=== PATIENT | female | born 1945 | race Caucasian/White ===

== ENCOUNTER 2020-08-30 10:35 | Outpatient (REF) | payer MEDICARE, OTHER, SELFPAY ==
--- NOTE | 2020-08-30 10:45 | XR_ITS ---
EXAMINATION: XR CHEST CLINICAL INFORMATION: Chest pain COMPARISON: None TECHNIQUE: 2 views of the chest were obtained. FINDINGS: The cardiac and mediastinal contours are normal. The lungs are clear. There is blunting at the costophrenic angles questionable for tiny bilateral pleural effusions or pleural thickening. There is no pneumothorax. There is a post vertebroplasty change of the T12 vertebral body. The there are degenerative changes of the spine. XR/XR chest 2V IMPRESSION: Blunting at the bilateral costophrenic angles questionable for tiny bilateral pleural effusions or pleural thickening. Post vertebroplasty change of the lower thoracic spine.
== END 2020-08-30 10:36 | disposition home or self-care (01) ==
LOC: HO.HMGCX 10:35
PROVIDERS: PCP Internal Medicine; Visit Provider Nurse Practitioner Family
DX: R07.89 Other chest pain (principal)
CPT/HCPCS: 71046

== ENCOUNTER 2020-09-10 05:16 | Inpatient (IN) | payer MEDICARE, OTHER, SELFPAY ==
[2020-09-10] VITALS (10 sets, daily range): BP systolic 103–136; BP diastolic 58–78; PULSE 64–92; RESP 16–24; TEMP 36.6–37.1; O2SAT 93–98; BMI 31.1
--- NOTE | 2020-09-10 05:38 | ED.URI ---
HPI - URI/Sore Throat General Chief Complaint: Chest Pain Stated Complaint: COUGHING UP BLOOD Time Seen by Provider: 09/10/20 05:37 Source: patient Mode of arrival: EMS Limitations: no limitations History of Present Illness HPI Narrative: Patient's history of bronchitis been coughing since 08/30/20 had x-ray done which was negative for pneumonia at that time started on doxycycline and prednisone without much help and yesterday started Zithromax for continue cough. Patient denied any fever no phlegm today she was coughing a lot and had some tinge of bright blood in the mucoid phlegm no fever no chills patient was tested COVID negative last week. No under family member with COVID at home Related Data Home Medications Medication Instructions Recorded Confirmed azithromycin 250 mg tablet mg PO 08/30/20 chlorhexidine gluconate 0.12 % ml PO 08/30/20 mouthwash duloxetine 60 mg capsule,delayed 60 mg PO DAILY 08/30/20 release flu vacc 2020-21(65yr ml IM 08/30/20 up)-MF59C(PF) 60 mcg(15 mcgx4)/0.5 mL IM syringe hyoscyamine sulfate 0.375 mg 0.375 mg PO BID 08/30/20 tablet,extended release,12 hr pantoprazole 40 mg tablet,delayed mg PO 08/30/20 release raloxifene 60 mg tablet 60 mg PO DAILY 08/30/20 valsartan 160 mg tablet 160 mg PO DAILY 08/30/20 Previous Rx's Medication Instructions Recorded cyclobenzaprine 5 mg tablet 5 mg PO BEDTIME PRN #7 tab 08/30/20 lidocaine 5 % topical patch 1 patch TOPICAL DAILY #15 ea 08/30/20 doxycycline hyclate 100 mg capsule 100 mg PO BID 10 Days #20 cap 08/31/20 prednisone 20 mg tablet 20 mg PO DAILY 9 Days #18 tab MDD 08/31/20 3 for 3days;2 for 3 days;1 3da Allergies Allergy/AdvReac Type Severity Reaction Status Date / Time nitroglycerin [NITROGLYCERIN] AdvReac Severe HYPOTENSION Unverified 05/26/20 15:12 Review of Systems Review of Systems: Constitutional : No Weight loss, No Fever, No Chills ENT/Mouth : No sore throat, No Rhinorrhea Eyes: No Eye Pain, No Swelling Cardiovascular : No Chest Pain, no palpitations Respiratory : +Cough, occasionalal Sputum, +shortness of breath Gastrointestinal : no Nausea, No Vomiting, No Diarrhea, No abdominal Pain, no black stools Genitourinary : No Dysuria, No Urinary Frequency Musculoskeletal : No joint pain, No Myalgias, No Joint Swelling Skin : No Skin Lesions, No rash Neuro : No Weakness, No Numbness, No Dizziness, No Headache Psych : No Anxiety/Panic, No Depression Heme/Lymph: No Bruising, No Lymphadenopathy Endocrine : No Polyuria, No Polydipsia All other systems reviewed and are negative PMFSH Past Medical History Medical History Pneumonia Social History Social History Advance Directives: No Advance Directives Information Provided: No Physical Exam Vital Signs: Vital Signs: Last Vital Signs Pulse 64 09/10/20 06:00 Resp 18 09/10/20 06:00 BP 136/78 09/10/20 06:00 Pulse Ox 96 09/10/20 06:00 Body Mass Index 31.1 VITAL SIGNS: Reviewed. GENERAL: Well developed, well nourished, in no acute distress. HEAD: Normocephalic/atraumatic, EYES: PERRLA No pallor/icterus noted OROPHARYNX: Oral mucosa moist no oral lesions NECK: Supple, no adenopathy LUNGS: Good air entry bilateral, rales bilateral lower bases more on the right side than left prolonged expiration wheezing +, rhonchi + no dullness CARDIOVASCULAR: Regular rate and rhythm without noted murmurs, no JVD or lower extremity edema. ABDOMEN: Soft, non-tender, non-distended with normal bowel sounds. No rigidity. No guarding. No palpable masses or hernias noted MUSCULOSKELETAL: No tenderness, deformities, EXTREMITIES: No cyanosis slight ankle edema 1+ bilateral SKIN: no rashes, ulcerations, jaundice, pallor, or petechiae NEUROLOGIC: Alert and oriented x 3. Strength and sensation to light touch were grossly intact normal speech Course Course Course Narrative: Patient with cough for 2 weeks COVID negative etiology not clear will do CTA to rule out PE versus pneumonia MDM - URI/Sore Throat MDM Narrative Medical decision making narrative: Patient with cough for last 10 days taken course of doxycycline and prednisone, now started on Zithromax. CT scan looks like atypical infiltrate final report is pending rapid COVID test is negative will do the PCR COVID testing as CT scan is more likely COVID infection. Patient signed out to Dr. Cote for disposition Differential Diagnosis Differential diagnosis: Likely upper respiratory infection and bronchitis Medical Records Attestation: I reviewed the patient's medical records. Lab Data Attestation: I reviewed the patient's lab results. Result diagrams: 09/10/20 05:58 09/10/20 05:59 Labs: Lab Results 09/10/20 09/10/20 09/10/20 Range/Units 05:58 05:58 05:59 WBC 7.8 (4.8-10.8) X10*3/uL RBC 4.52 (4.20-5.50) X10*6/uL Hgb 13.3 (12.0-16.0) g/dl Hct 42.3 (37-47) % MCV 93.6 (80-98) fL MCH 29.4 (27.0-33.0) pg MCHC 31.4 (31.0-35.0) g/dl RDW 13.8 (11.0-16.0) % Plt Count 222 (160-400) X10*3/uL MPV 10.4 (9.4-12.3) fL Immature Gran % (Auto) 0.8 H (0.0-0.4) % Neut % (Auto) 63.2 (45-73) % Lymph % (Auto) 30.9 (20-40) % [place] % (Auto) 4.1 (2-11) % Eos % (Auto) 0.9 (0-4) % Baso % (Auto) 0.1 (0-2) % Lymph # (Auto) 2.4 (1.2-4.9) X10*3/uL [place] # (Auto) 0.3 (0.1-1.2) X10*3/uL Eos # (Auto) 0.1 (0.0-0.4) X10*3/uL Baso # (Auto) 0.0 (0.0-0.2) X10*3/uL Abs Immat Gran (auto) 0.06 H (0.00-0.03) X10*3/uL Absolute Neuts (auto) 4.9 (2.0-8.3) X10*3/uL Absolute Nucleated RBC 0.000 (0.0-0.012) X10*3/uL Nucleated RBC % (auto) 0.0 (0.0-0.2) /100WBC PT 12.1 (10.8-13.0) SEC INR 1.0 (0.9-1.1) APTT 31.4 (24.1-38.0) SEC Sodium (135-145) mmol/L Potassium (3.3-5.1) mmol/l Chloride (96-108) mmol/L Carbon Dioxide (22-29) mmol/L Anion Gap (12-20) BUN (9-16) mg/dL Creatinine (0.5-1.4) mg/dL Estim Creat Clear Calc Estimated GFR Random Glucose (60-115) mg/dL Lactic Acid (0.5-2.0) mmol/L Calcium (8.4-10.2) mg/dL Troponin I High Sens (<3.5-17.0) ng/L COVID-19 ([facility]IN) (Negative) COVID-19 Clin Com 09/10/20 09/10/20 09/10/20 Range/Units 05:59 05:59 06:01 WBC (4.8-10.8) X10*3/uL RBC (4.20-5.50) X10*6/uL Hgb (12.0-16.0) g/dl Hct (37-47) % MCV (80-98) fL MCH (27.0-33.0) pg MCHC (31.0-35.0) g/dl RDW (11.0-16.0) % Plt Count (160-400) X10*3/uL MPV (9.4-12.3) fL Immature Gran % (Auto) (0.0-0.4) % Neut % (Auto) (45-73) % Lymph % (Auto) (20-40) % [place] % (Auto) (2-11) % Eos % (Auto) (0-4) % Baso % (Auto) (0-2) % Lymph # (Auto) (1.2-4.9) X10*3/uL [place] # (Auto) (0.1-1.2) X10*3/uL Eos # (Auto) (0.0-0.4) X10*3/uL Baso # (Auto) (0.0-0.2) X10*3/uL Abs Immat Gran (auto) (0.00-0.03) X10*3/uL Absolute Neuts (auto) (2.0-8.3) X10*3/uL Absolute Nucleated RBC (0.0-0.012) X10*3/uL Nucleated RBC % (auto) (0.0-0.2) /100WBC PT (10.8-13.0) SEC INR (0.9-1.1) APTT (24.1-38.0) SEC Sodium 140 (135-145) mmol/L Potassium 4.3 (3.3-5.1) mmol/l Chloride 102 (96-108) mmol/L Carbon Dioxide 31 H (22-29) mmol/L Anion Gap 11 L (12-20) BUN 20 H (9-16) mg/dL Creatinine 0.79 (0.5-1.4) mg/dL Estim Creat Clear Calc 68.3 Estimated GFR > 60 Random Glucose 107 (60-115) mg/dL Lactic Acid (0.5-2.0) mmol/L Calcium 8.4 (8.4-10.2) mg/dL Troponin I High Sens < 3.5 (<3.5-17.0) ng/L COVID-19 (CAIN) Negative (Negative) COVID-19 Clin Com See Note 09/10/20 Range/Units 06:32 WBC (4.8-10.8) X10*3/uL RBC (4.20-5.50) X10*6/uL Hgb (12.0-16.0) g/dl Hct (37-47) % MCV (80-98) fL MCH (27.0-33.0) pg MCHC (31.0-35.0) g/dl RDW (11.0-16.0) % Plt Count (160-400) X10*3/uL MPV (9.4-12.3) fL Immature Gran % (Auto) (0.0-0.4) % Neut % (Auto) (45-73) % Lymph % (Auto) (20-40) % [place] % (Auto) (2-11) % Eos % (Auto) (0-4) % Baso % (Auto) (0-2) % Lymph # (Auto) (1.2-4.9) X10*3/uL [place] # (Auto) (0.1-1.2) X10*3/uL Eos # (Auto) (0.0-0.4) X10*3/uL Baso # (Auto) (0.0-0.2) X10*3/uL Abs Immat Gran (auto) (0.00-0.03) X10*3/uL Absolute Neuts (auto) (2.0-8.3) X10*3/uL Absolute Nucleated RBC (0.0-0.012) X10*3/uL Nucleated RBC % (auto) (0.0-0.2) /100WBC PT (10.8-13.0) SEC INR (0.9-1.1) APTT (24.1-38.0) SEC Sodium (135-145) mmol/L Potassium (3.3-5.1) mmol/l Chloride (96-108) mmol/L Carbon Dioxide (22-29) mmol/L Anion Gap (12-20) BUN (9-16) mg/dL Creatinine (0.5-1.4) mg/dL Estim Creat Clear Calc Estimated GFR Random Glucose (60-115) mg/dL Lactic Acid 0.7 (0.5-2.0) mmol/L Calcium (8.4-10.2) mg/dL Troponin I High Sens (<3.5-17.0) ng/L COVID-19 (CAIN) (Negative) COVID-19 Clin Com Discharge Plan Discharge Prescriptions: No Action valsartan 160 mg tablet 160 mg PO DAILY RF: 0 pantoprazole 40 mg tablet,delayed release (DR/EC) PO RF: 0 azithromycin 250 mg tablet PO RF: 0 chlorhexidine gluconate 0.12 % mouthwash PO RF: 0 duloxetine 60 mg capsule,delayed release(DR/EC) 60 mg PO DAILY RF: 0 hyoscyamine sulfate 0.375 mg tablet extended release 12 hr 0.375 mg PO BID RF: 0 Fluad Quad 2019-(65y up)(PF) 60 mcg (15 mcg x 4)/0.5 mL syringe IM RF: 0 raloxifene 60 mg tablet 60 mg PO DAILY RF: 0 lidocaine 5 % adhesive patch,medicated 1 patch topical DAILY Qty: 15 RF: 0 cyclobenzaprine 5 mg tablet 5 mg PO BEDTIME PRN (Reason: muscle spasm) Qty: 7 RF: 0 doxycycline hyclate 100 mg capsule 100 mg PO BID 10 Days Qty: 20 RF: 0 prednisone 20 mg tablet 20 mg PO DAILY MDD 3 for 3days;2 for 3 days;1 3da 9 Days Qty: 18 RF: 0
--- NOTE | 2020-09-10 05:45 | ECG_ITS ---
Test Reason : CHEST DISC Blood Pressure : / mmHG Vent. Rate : 070 BPM Atrial Rate : 070 BPM P-R Int : 174 ms QRS Dur : 096 ms QT Int : 412 ms P-R-T Axes : 043 -05 035 degrees QTc Int : 444 ms Normal sinus rhythm Normal ECG When compared with ECG of 15-JUL-2018 09:58, No significant change was found Referred By: Sony Ortiz Electronically Signed By:LORENZO MURGUIA
--- NOTE | 2020-09-10 05:45 | CT_ITS ---
EXAMINATION: CT ANGIOGRAM OF THE CHEST WITH AND WITHOUT CONTRAST (CT PULMONARY ANGIOGRAM FOR PE) CLINICAL INFORMATION: Reason for Exam SOB ? Right lower lobe infiltrate? PE COMPARISON: None TECHNIQUE: Prior to contrast administration, noncontrast localization images were obtained. Subsequently, multidetector volumetric imaging was performed from the thoracic inlet to below the diaphragms following the administration of 80 mL Omnipaque 350 intravenous contrast. No contrast reaction reported Sagittal, coronal, and MIP oblique sagittal reformatted images were obtained on the CT workstation, uploaded to PACS, and reviewed. This CT examination was performed using dose optimization techniques as appropriate, variously including the following: *Automated exposure control *Adjustment of mA and/or kV according to patient size (this includes techniques or standardized protocols for targeted exams where dose is matched to indication/reason for exam; i.e. extremities or head) *Use of iterative reconstruction technique Total exam dose-length product 323 mGy-cm FINDINGS: QUALITY OF STUDY/CONTRAST BOLUS: Satisfactory. PULMONARY ARTERIES: No central or segmental pulmonary emboli. THORACIC AORTA: No aneurysm or dissection. LUNG: Multinodular opacities and associated stranding groundglass present throughout the right lung, most pronounced within the middle lobe and right lower lobe where there is associated interlobular septal thickening towards the right lung base. Left lung is devoid of findings. PLEURA: No pleural effusion or pneumothorax. MEDIASTINUM: Cardiomegaly. No pericardial effusion. No hilar or mediastinal lymphadenopathy. No evidence of septal bowing or right heart strain. No reflux of contrast into the hepatic veins to suggest elevated right heart pressures. Esophagus is dilated and contains debris. CHEST WALL/AXILLA: No axillary or internal mammary lymphadenopathy. OSSEOUS STRUCTURES: No acute or suspicious osseous abnormality. Is post vertebroplasty at T12. UPPER ABDOMEN: Cholelithiasis. CT/CT angio chest PE protocol IMPRESSION: * No evidence of pulmonary embolism. * No aortic aneurysm or dissection. * Nodular opacities and associated groundglass throughout much of the RIGHT lung, more pronounced within the middle lobe and lower lobe. Given the unilaterality, location and the debris-filled esophagus favor aspiration pneumonitis. * Cholelithiasis. VTE: negative
[2020-09-10 06:10] LABS: MANUAL DIFF FLAG NO
[2020-09-10 06:12] LABS: Basophils Percent Auto 0.1 % (0-2); Eosinophils Absolute Auto 0.1 X10*3/uL (0.0-0.4); Eosinophils Percent Auto 0.9 % (0-4); Hematocrit 42.3 % (37-47); Hemoglobin 13.3 g/dl (12.0-16.0); Imm Gran Abs Auto 0.06 X10*3/uL (0.00-0.03); Imm Gran Pct Auto 0.8 % (0.0-0.4); Lymphocytes Absolute Auto 2.4 X10*3/uL (1.2-4.9); Lymphocytes Percent Auto 30.9 % (20-40); Mean Corpuscular HGB Conc 31.4 g/dl (31.0-35.0); Mean Corpuscular Hemoglobin 29.4 pg (27.0-33.0); Mean Corpuscular Volume 93.6 fL (80-98); Mean Platelet Volume 10.4 fL (9.4-12.3); Monocytes Absolute Auto 0.3 X10*3/uL (0.1-1.2); Monocytes Percent Auto 4.1 % (2-11); Neutrophils Absolute Auto 4.9 X10*3/uL (2.0-8.3); Neutrophils Percent Auto 63.2 % (45-73); Platelet Count 222 X10*3/uL (160-400); Red Blood Count 4.52 X10*6/uL (4.20-5.50); Red Cell Distribution Width 13.8 % (11.0-16.0); White Blood Count 7.8 X10*3/uL (4.8-10.8)
[2020-09-10] MEDS: guaiFEN/Codeine SF 200/20/10ML 10 ML LIQUID PO (06:13)
[2020-09-10] MEDS: Albuterol Sulfate 90 MCG 8 GM INHALER 4 PUFF INHALE (06:13)
--- NOTE | 2020-09-10 06:15 | PC.NURSE ---
PT TO ROOM #17 WITH C/O CHEST DISCOMFORT FROM COUGHING ALONG WITH BLOODY SPUTUM. PT CHG INTO GOWN AND AWAITING MD'S EVAL. 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 LABS DRAWN TO LAB.
[2020-09-10 06:32] LABS: Anion Gap 11 (12-20); Blood Urea Nitrogen 20 mg/dL (9-16); Calcium 8.4 mg/dL (8.4-10.2); Carbon Dioxide 31 mmol/L (22-29); Chloride 102 mmol/L (96-108); Creatinine Clr Calc Pharmacy 68.3; Estimated Glomerular Filt Rate > 60; Glucose Random 107 mg/dL (60-115); Potassium 4.3 mmol/l (3.3-5.1); Sodium 140 mmol/L (135-145)
[2020-09-10 06:33] LABS: Prothrombin Time 12.1 SEC (10.8-13.0)
[2020-09-10 06:36] LABS: Partial Thromboplastin Time 31.4 SEC (24.1-38.0)
[2020-09-10 06:37] LABS: COVID-19 Test Negative (Negative)
[2020-09-10 06:38] LABS: Troponin-I High Sensitivity < 3.5 ng/L (<3.5-17.0)
[2020-09-10] MEDS: ondansetron HCL 4 MG/2 ML VIAL IVPUSH (06:56)
--- NOTE | 2020-09-10 07:02 | PC.NURSE ---
PT AWAITING CT.
[2020-09-10 07:08] LABS: Lactic Acid 0.7 mmol/L (0.5-2.0)
[2020-09-10] MEDS: iohexoL 350 MG/ML 100 ML INFUS..BTL IV (07:46)
[2020-09-10 07:47] LABS: B Type Natriuretic Peptide 58 pg/mL (<100)
[2020-09-10 07:53] LABS: D Dimer 231 NG/ML
--- NOTE | 2020-09-10 07:54 | PC.NURSE ---
Dr Ortiz to bedside and discussing negative [facility] Covid test but plan to have Flu/SARS/COVID test d/t CT scan images. Pt swabbed as ordered. Pt noted to have more work of breathing than prior assessment, LS clear anteriorly but hypoxic, room air sat 85% placed on 3lpm via nc with sat up to 93%. Pt reports frontal headache. oral temp 99.8
[2020-09-10 07:55] LABS: Lactate Dehydrogenase 149 U/L (122-220)
[2020-09-10 08:17] LABS: Ferritin 92 ng/mL (10-250)
[2020-09-10 08:37] LABS: Influenza A PCR NEGATIVE (Negative); Influenza B PCR NEGATIVE (Negative); Resp Syncy Virus RNA Qual PCR NEGATIVE (Negative); SARS COV2 PCR INHOUSE NEGATIVE (Negative)
[2020-09-10] MEDS: Piperacillin Sodium/Tazobactam 3.375 GM in 0.9 % Sodium Chloride 50 ML IV ×3 (08:46→23:24)
[2020-09-10] MEDS: Acetaminophen 325 MG TABLET 650 MG PO ×2 (08:46→17:19)
--- NOTE | 2020-09-10 09:39 | ED.CHESTPAIN ---
HPI - Chest Pain General Chief Complaint: Chest Pain Stated Complaint: COUGHING UP BLOOD Time Seen by Provider: 09/10/20 05:37 Source: patient Mode of arrival: EMS Limitations: no limitations Related Data Home Medications Medication Instructions Recorded Confirmed azithromycin 250 mg tablet mg PO 08/30/20 chlorhexidine gluconate 0.12 % ml PO 08/30/20 mouthwash duloxetine 60 mg capsule,delayed 60 mg PO DAILY 08/30/20 release flu vacc 2020-21(65yr ml IM 08/30/20 up)-MF59C(PF) 60 mcg(15 mcgx4)/0.5 mL IM syringe hyoscyamine sulfate 0.375 mg 0.375 mg PO BID 08/30/20 tablet,extended release,12 hr pantoprazole 40 mg tablet,delayed mg PO 08/30/20 release raloxifene 60 mg tablet 60 mg PO DAILY 08/30/20 valsartan 160 mg tablet 160 mg PO DAILY 08/30/20 Previous Rx's Medication Instructions Recorded cyclobenzaprine 5 mg tablet 5 mg PO BEDTIME PRN #7 tab 08/30/20 lidocaine 5 % topical patch 1 patch TOPICAL DAILY #15 ea 08/30/20 doxycycline hyclate 100 mg capsule 100 mg PO BID 10 Days #20 cap 08/31/20 prednisone 20 mg tablet 20 mg PO DAILY 9 Days #18 tab MDD 08/31/20 3 for 3days;2 for 3 days;1 3da Allergies Allergy/AdvReac Type Severity Reaction Status Date / Time nitroglycerin [NITROGLYCERIN] AdvReac Severe HYPOTENSION Verified 09/10/20 08:55 PMFSH Past Medical History Medical History Pneumonia Social History Social History Smoking Status: Never smoker Use of substances other than those prescribed or required for medical reasons: No Advance Directives: No Advance Directives Information Provided: No Physical Exam Vital Signs: Vital Signs: Last Vital Signs Temp 98.8 F 09/10/20 09:31 Pulse 92 09/10/20 09:31 Resp 24 H 09/10/20 09:31 BP 114/68 09/10/20 09:31 Pulse Ox 95 09/10/20 09:31 Body Mass Index 31.1 Course Course Course Narrative: I received sign-out from Dr. Ortiz. Patient had 2 tests for COVID, both of them were negative. The CT scan impression is more comfortable with aspiration pneumonia then with COVID. When patient walks, her oxygen saturation drops to 85% on room air, currently patient is on 2 L, saturating at 95%. I discussed the patient with Dr. Farias, patient will be admitted. At this time, sepsis is not suspected MDM - Chest Pain Lab Data Result diagrams: 09/10/20 05:58 09/10/20 05:59 Labs: Lab Results 09/10/20 09/10/20 09/10/20 Range/Units 05:58 05:58 05:59 WBC 7.8 (4.8-10.8) X10*3/uL RBC 4.52 (4.20-5.50) X10*6/uL Hgb 13.3 (12.0-16.0) g/dl Hct 42.3 (37-47) % MCV 93.6 (80-98) fL MCH 29.4 (27.0-33.0) pg MCHC 31.4 (31.0-35.0) g/dl RDW 13.8 (11.0-16.0) % Plt Count 222 (160-400) X10*3/uL MPV 10.4 (9.4-12.3) fL Immature Gran % (Auto) 0.8 H (0.0-0.4) % Neut % (Auto) 63.2 (45-73) % Lymph % (Auto) 30.9 (20-40) % [place] % (Auto) 4.1 (2-11) % Eos % (Auto) 0.9 (0-4) % Baso % (Auto) 0.1 (0-2) % Lymph # (Auto) 2.4 (1.2-4.9) X10*3/uL [place] # (Auto) 0.3 (0.1-1.2) X10*3/uL Eos # (Auto) 0.1 (0.0-0.4) X10*3/uL Baso # (Auto) 0.0 (0.0-0.2) X10*3/uL Abs Immat Gran (auto) 0.06 H (0.00-0.03) X10*3/uL Absolute Neuts (auto) 4.9 (2.0-8.3) X10*3/uL Absolute Nucleated RBC 0.000 (0.0-0.012) X10*3/uL Nucleated RBC % (auto) 0.0 (0.0-0.2) /100WBC PT 12.1 (10.8-13.0) SEC INR 1.0 (0.9-1.1) APTT 31.4 (24.1-38.0) SEC D-Dimer 231 NG/ML Sodium (135-145) mmol/L Potassium (3.3-5.1) mmol/l Chloride (96-108) mmol/L Carbon Dioxide (22-29) mmol/L Anion Gap (12-20) BUN (9-16) mg/dL Creatinine (0.5-1.4) mg/dL Estim Creat Clear Calc Estimated GFR Random Glucose (60-115) mg/dL Lactic Acid (0.5-2.0) mmol/L Calcium (8.4-10.2) mg/dL Ferritin (10-250) ng/mL Lactate Dehydrogenase (122-220) U/L Troponin I High Sens (<3.5-17.0) ng/L B-Natriuretic Peptide (<100) pg/mL Coronavirus (PCR) (Negative) COVID-19 ([facility]IN) (Negative) COVID-19 Clin Com Influenza Type A (PCR) (Negative) Influenza Type B (PCR) (Negative) RSV RNA Qual (PCR) (Negative) 09/10/20 09/10/20 09/10/20 Range/Units 05:59 05:59 06:01 WBC (4.8-10.8) X10*3/uL RBC (4.20-5.50) X10*6/uL Hgb (12.0-16.0) g/dl Hct (37-47) % MCV (80-98) fL MCH (27.0-33.0) pg MCHC (31.0-35.0) g/dl RDW (11.0-16.0) % Plt Count (160-400) X10*3/uL MPV (9.4-12.3) fL Immature Gran % (Auto) (0.0-0.4) % Neut % (Auto) (45-73) % Lymph % (Auto) (20-40) % [place] % (Auto) (2-11) % Eos % (Auto) (0-4) % Baso % (Auto) (0-2) % Lymph # (Auto) (1.2-4.9) X10*3/uL [place] # (Auto) (0.1-1.2) X10*3/uL Eos # (Auto) (0.0-0.4) X10*3/uL Baso # (Auto) (0.0-0.2) X10*3/uL Abs Immat Gran (auto) (0.00-0.03) X10*3/uL Absolute Neuts (auto) (2.0-8.3) X10*3/uL Absolute Nucleated RBC (0.0-0.012) X10*3/uL Nucleated RBC % (auto) (0.0-0.2) /100WBC PT (10.8-13.0) SEC INR (0.9-1.1) APTT (24.1-38.0) SEC D-Dimer NG/ML Sodium 140 (135-145) mmol/L Potassium 4.3 (3.3-5.1) mmol/l Chloride 102 (96-108) mmol/L Carbon Dioxide 31 H (22-29) mmol/L Anion Gap 11 L (12-20) BUN 20 H (9-16) mg/dL Creatinine 0.79 (0.5-1.4) mg/dL Estim Creat Clear Calc 68.3 Estimated GFR > 60 Random Glucose 107 (60-115) mg/dL Lactic Acid (0.5-2.0) mmol/L Calcium 8.4 (8.4-10.2) mg/dL Ferritin 92 (10-250) ng/mL Lactate Dehydrogenase 149 (122-220) U/L Troponin I High Sens < 3.5 (<3.5-17.0) ng/L B-Natriuretic Peptide 58 (<100) pg/mL Coronavirus (PCR) (Negative) COVID-19 ([facility]IN) Negative (Negative) COVID-19 Clin Com See Note Influenza Type A (PCR) (Negative) Influenza Type B (PCR) (Negative) RSV RNA Qual (PCR) (Negative) 09/10/20 09/10/20 Range/Units 06:32 07:51 WBC (4.8-10.8) X10*3/uL RBC (4.20-5.50) X10*6/uL Hgb (12.0-16.0) g/dl Hct (37-47) % MCV (80-98) fL MCH (27.0-33.0) pg MCHC (31.0-35.0) g/dl RDW (11.0-16.0) % Plt Count (160-400) X10*3/uL MPV (9.4-12.3) fL Immature Gran % (Auto) (0.0-0.4) % Neut % (Auto) (45-73) % Lymph % (Auto) (20-40) % [place] % (Auto) (2-11) % Eos % (Auto) (0-4) % Baso % (Auto) (0-2) % Lymph # (Auto) (1.2-4.9) X10*3/uL [place] # (Auto) (0.1-1.2) X10*3/uL Eos # (Auto) (0.0-0.4) X10*3/uL Baso # (Auto) (0.0-0.2) X10*3/uL Abs Immat Gran (auto) (0.00-0.03) X10*3/uL Absolute Neuts (auto) (2.0-8.3) X10*3/uL Absolute Nucleated RBC (0.0-0.012) X10*3/uL Nucleated RBC % (auto) (0.0-0.2) /100WBC PT (10.8-13.0) SEC INR (0.9-1.1) APTT (24.1-38.0) SEC D-Dimer NG/ML Sodium (135-145) mmol/L Potassium (3.3-5.1) mmol/l Chloride (96-108) mmol/L Carbon Dioxide (22-29) mmol/L Anion Gap (12-20) BUN (9-16) mg/dL Creatinine (0.5-1.4) mg/dL Estim Creat Clear Calc Estimated GFR Random Glucose (60-115) mg/dL Lactic Acid 0.7 (0.5-2.0) mmol/L Calcium (8.4-10.2) mg/dL Ferritin (10-250) ng/mL Lactate Dehydrogenase (122-220) U/L Troponin I High Sens (<3.5-17.0) ng/L B-Natriuretic Peptide (<100) pg/mL Coronavirus (PCR) NEGATIVE (Negative) COVID-19 ([facility]IN) (Negative) COVID-19 Clin Com Influenza Type A (PCR) NEGATIVE (Negative) Influenza Type B (PCR) NEGATIVE (Negative) RSV RNA Qual (PCR) NEGATIVE (Negative) Imaging Data CT PE: Radiologist's impression: FINDINGS: QUALITY OF STUDY/CONTRAST BOLUS: Satisfactory. PULMONARY ARTERIES: No central or segmental pulmonary emboli. THORACIC AORTA: No aneurysm or dissection. LUNG: Multinodular opacities and associated stranding groundglass present throughout the right lung, most pronounced within the middle lobe and right lower lobe where there is associated interlobular septal thickening towards the right lung base. Left lung is devoid of findings. PLEURA: No pleural effusion or pneumothorax. MEDIASTINUM: Cardiomegaly. No pericardial effusion. No hilar or mediastinal lymphadenopathy. No evidence of septal bowing or right heart strain. No reflux of contrast into the hepatic veins to suggest elevated right heart pressures. Esophagus is dilated and contains debris. CHEST WALL/AXILLA: No axillary or internal mammary lymphadenopathy. OSSEOUS STRUCTURES: No acute or suspicious osseous abnormality. Is post vertebroplasty at T12. UPPER ABDOMEN: Cholelithiasis. CT/CT angio chest PE protocol IMPRESSION: * No evidence of pulmonary embolism. * No aortic aneurysm or dissection. * Nodular opacities and associated groundglass throughout much of the RIGHT lung, more pronounced within the middle lobe and lower lobe. Given the unilaterality, location and the debris-filled esophagus favor aspiration pneumonitis. * Cholelithiasis. VTE: negative Discharge Plan Discharge Clinical Impression: Pneumonia Patient Disposition: Admitted As Inpatient Prescriptions: No Action valsartan 160 mg tablet 160 mg PO DAILY RF: 0 pantoprazole 40 mg tablet,delayed release (DR/EC) PO RF: 0 azithromycin 250 mg tablet PO RF: 0 chlorhexidine gluconate 0.12 % mouthwash PO RF: 0 duloxetine 60 mg capsule,delayed release(DR/EC) 60 mg PO DAILY RF: 0 hyoscyamine sulfate 0.375 mg tablet extended release 12 hr 0.375 mg PO BID RF: 0 Fluad Quad 2020-21(65y up)(PF) 60 mcg (15 mcg x 4)/0.5 mL syringe IM RF: 0 raloxifene 60 mg tablet 60 mg PO DAILY RF: 0 lidocaine 5 % adhesive patch,medicated 1 patch topical DAILY Qty: 15 RF: 0 cyclobenzaprine 5 mg tablet 5 mg PO BEDTIME PRN (Reason: muscle spasm) Qty: 7 RF: 0 doxycycline hyclate 100 mg capsule 100 mg PO BID 10 Days Qty: 20 RF: 0 prednisone 20 mg tablet 20 mg PO DAILY MDD 3 for 3days;2 for 3 days;1 3da 9 Days Qty: 18 RF: 0
[2020-09-10] MEDS: 0.9 % Sodium Chloride 1,000 ML 999 ML IVCONT (10:48)
[2020-09-10] MEDS: Prochlorperazine Edisylate 10 MG/2 ML VIAL 5 MG IVPUSH (10:48)
--- NOTE | 2020-09-10 17:10 | PM.IMHP ---
History of Present Illness Date of Service: 09/10/20 <Cecelia Jones NP - Last Filed: 09/10/20 17:20> Chief Complaint: Coughing <Cecelia Jones NP - Last Filed: 09/10/20 17:20> Man presented to the ER with complaints cough burning throat. She reports she woke this morning suddenly with feeling burning in her esophagus and uncontrollable coughing. She reported that she and her usual state of health although last she was diagnosed with pneumonia and was prescribed doxycycline eye and had 1 pill left. She denied any recent fever, chills, nausea, vomiting, diarrhea. Chest CT of was obtained which was negative for pulmonary embolus however did showed nodular opacities with ground-glass too much to the right lung seeming to represent aspiration pneumonitis. She did report a history acid reflux. she did have an episode of hypoxia with oxygen saturation dropping into the high 80s. This did improve with oxygen therapy. Labs all within acceptable limits, vital signs stable, COVID negative. To be admitted for further management treatment aspiration pneumonia. <Cecelia Jones NP - Last Filed: 09/10/20 17:20> Review of Systems Review of Systems: Denies any recent fever chills or decrease in appetite respiratory see HPI cardiovascular is adjustment of any PND or edema gastrointestinal denies any dysphagia abdominal pain nausea vomiting or diarrhea genitourinary denies any dysuria frequency or hematuria musculoskeletal denies any joint pain or swelling neuropsych denies any weakness or seizures all other systems reviewed are negative <Cecelia Jones NP - Last Filed: 09/10/20 17:20> [facility] Medical History: Medical History (Updated 09/11/20 @ 11:45 by Wilbert Disla MD) Ankle fracture, left GERD (gastroesophageal reflux disease) Hypertension Pneumonia <Cecelia Jones NP - Last Filed: 09/10/20 17:20> Pertinent family history: no cardiac disease <Cecelia Jones NP - Last Filed: 09/10/20 17:20> Surgical History: Surgical History (Updated 09/10/20 @ 17:16 by Cecelia Jones NP) Status post ORIF of fracture of ankle <Cecelia Jones NP - Last Filed: 09/10/20 17:20> Social History: Social History Smoking Status: Never smoker Use of substances other than those prescribed or required for medical reasons: No Currently Displaying Signs/Symptoms of Drug Intoxication Withdrawal: No Advance Directives: No Advance Directives Information Provided: No Do you have thoughts of harming others: None Do you have a plan to hurt others: No Plan service: No Current occupational status: retired <Cecelia Jones NP - Last Filed: 09/10/20 17:20> Meds Allergies/Adverse reactions: Allergies Allergy/AdvReac Type Severity Reaction Status Date / Time nitroglycerin [NITROGLYCERIN] AdvReac Severe HYPOTENSION Verified 09/10/20 08:55 <Cecelia Jones NP - Last Filed: 09/10/20 17:20> Home medications: Home Medications Medication Instructions Recorded Confirmed Type duloxetine 60 mg capsule,delayed 60 mg PO DAILY 08/30/20 09/10/20 History release flu vacc (65yr ml IM 08/30/20 History up)-MF59C(PF) 60 mcg(15 mcgx4)/0.5 mL IM syringe pantoprazole 40 mg tablet,delayed 40 mg PO DAILY 08/30/20 09/10/20 History release raloxifene 60 mg tablet 60 mg PO DAILY 08/30/20 09/10/20 History azelastine 1 spray INTRANASAL BID PRN 09/10/20 09/10/20 History pregabalin [Lyrica] 100 mg PO BID 09/10/20 09/10/20 History propranolol 2 tab PO DAILY@0730 09/10/20 09/10/20 History <Cecelia Jones NP - Last Filed: 09/10/20 17:20> Physical Exam Vital Signs and Narrative: Vital Signs: Last Vital Signs Temp 98.1 F 09/10/20 14:04 Pulse 71 09/10/20 17:06 Resp 20 09/10/20 17:06 BP 108/58 L 09/10/20 17:06 Pulse Ox 98 09/10/20 17:06 Body Mass Index 31.1 <Cecelia Jones NP - Last Filed: 09/10/20 17:20> Results Labs CBC and Chem 7: : 09/12/20 06:13 09/12/20 06:13 <Cecelia Jones NP - Last Filed: 09/10/20 17:20> Labs: Laboratory Results - last 24 hr 09/10/20 09/10/20 09/10/20 05:58 05:58 05:59 MCV 93.6 MCH 29.4 MCHC 31.4 RDW 13.8 Plt Count 222 MPV 10.4 Immature Gran % (Auto) 0.8 H Neut % (Auto) 63.2 Lymph % (Auto) 30.9 [place] % (Auto) 4.1 Eos % (Auto) 0.9 Baso % (Auto) 0.1 Lymph # (Auto) 2.4 [place] # (Auto) 0.3 Eos # (Auto) 0.1 Baso # (Auto) 0.0 Abs Immat Gran (auto) 0.06 H Absolute Neuts (auto) 4.9 Absolute Nucleated RBC 0.000 Nucleated RBC % (auto) 0.0 PT 12.1 INR 1.0 APTT 31.4 D-Dimer 231 Anion Gap Estim Creat Clear Calc Estimated GFR Random Glucose Lactic Acid Calcium Ferritin Lactate Dehydrogenase Troponin I High Sens B-Natriuretic Peptide Coronavirus (PCR) COVID-19 (CAIN) COVID-19 Clin Com Influenza Type A (PCR) Influenza Type B (PCR) RSV RNA Qual (PCR) 09/10/20 09/10/20 09/10/20 05:59 05:59 06:01 MCV MCH MCHC RDW Plt Count MPV Immature Gran % (Auto) Neut % (Auto) Lymph % (Auto) [place] % (Auto) Eos % (Auto) Baso % (Auto) Lymph # (Auto) [place] # (Auto) Eos # (Auto) Baso # (Auto) Abs Immat Gran (auto) Absolute Neuts (auto) Absolute Nucleated RBC Nucleated RBC % (auto) PT INR APTT D-Dimer Anion Gap 11 L Estim Creat Clear Calc 68.3 Estimated GFR > 60 Random Glucose 107 Lactic Acid Calcium 8.4 Ferritin 92 Lactate Dehydrogenase 149 Troponin I High Sens < 3.5 B-Natriuretic Peptide 58 Coronavirus (PCR) COVID-19 (CAIN) Negative COVID-19 Clin Com See Note Influenza Type A (PCR) Influenza Type B (PCR) RSV RNA Qual (PCR) 09/10/20 09/10/20 06:32 07:51 MCV MCH MCHC RDW Plt Count MPV Immature Gran % (Auto) Neut % (Auto) Lymph % (Auto) [place] % (Auto) Eos % (Auto) Baso % (Auto) Lymph # (Auto) [place] # (Auto) Eos # (Auto) Baso # (Auto) Abs Immat Gran (auto) Absolute Neuts (auto) Absolute Nucleated RBC Nucleated RBC % (auto) PT INR APTT D-Dimer Anion Gap Estim Creat Clear Calc Estimated GFR Random Glucose Lactic Acid 0.7 Calcium Ferritin Lactate Dehydrogenase Troponin I High Sens B-Natriuretic Peptide Coronavirus (PCR) NEGATIVE COVID-19 (CAIN) COVID-19 Clin Com Influenza Type A (PCR) NEGATIVE Influenza Type B (PCR) NEGATIVE RSV RNA Qual (PCR) NEGATIVE <Cecelia Jones NP - Last Filed: 09/10/20 17:20> Imaging Radiologist's Impressions: Impressions Chest CTA 09/10/20 05:45 IMPRESSION: * No evidence of pulmonary embolism. * No aortic aneurysm or dissection. * Nodular opacities and associated groundglass throughout much of the RIGHT lung, more pronounced within the middle lobe and lower lobe. Given the unilaterality, location and the debris-filled esophagus favor aspiration pneumonitis. * Cholelithiasis. VTE: negative <Cecelia Jones NP - Last Filed: 09/10/20 17:20> Assessment and Plan (1) Pneumonia: Qualifiers: Laterality: right Lung location: unspecified part of lung Pneumonia type: due to unspecified organism Qualified Code(s): J18.9 - Pneumonia, unspecified organism <Cecelia Jones NP - Last Filed: 09/10/20 17:20> Status: Acute <Cecelia Jones NP - Last Filed: 09/10/20 17:20> 74-year-old woman admitted well aspiration pneumonitis. Acute hypoxic respiratory failure secondary to aspiration pneumonitis. Zosyn, continue supplemental oxygen. GERD. PPI. Hypertension. Hold, soft blood pressures. DVT prophylaxis with Lovenox. Discussed with Dr. Disla Full code <Cecelia Jones NP - Last Filed: 09/10/20 17:20>
--- NOTE | 2020-09-10 17:11 | P.EN_ITS ---
Event Note Date of Service: 09/11/20 Event Note: patient seen examined case d/w APC 74-year-old female patient with past medical history of hypertension, GERD presented to [facility] due to symptoms of cough, localized left lower chest pain patient recently finished a course of doxycycline and prednisone for pneumonia but since her symptoms persisted she came to the emergency room, CT chest in the ER showed right middle and lower lobe ground-glass opacities and dilated fluid and debris filled esophagus therefore concern for aspiration pneumonitis patient treated with IV antibiotics, COVID 19 PCR negative ,being admitted for continued monitoring and treatment patient also noted to be hypoxic with ambulation. On examination Awake alert no distress Lungs diminished coarse breath sounds right base Localized tenderness to palpation left lower ribcage Extremities no edema Assessment and plan Acute hypoxic respiratory failure secondary to aspiration pneumonitis Hypertension History of migraine on propranolol Trigeminal neuralgia on Lyrica Agree with IV antibiotic and supportive care.
[2020-09-10] MEDS: 0.9 % Sodium Chloride Flush 3 ML SYRINGE IVFLUSH ×2 (17:24→23:25)
--- NOTE | 2020-09-10 20:00 | PC.NURSE ---
floor called. awaiting return call.
--- NOTE | 2020-09-10 20:15 | PC.NURSE ---
rn to rn with radha (sp?)
[2020-09-10] MEDS: Pregabalin 100 MG CAPSULE PO (20:51)
[2020-09-11] VITALS (7 sets, daily range): BP systolic 100–121; BP diastolic 50–67; PULSE 66–112; RESP 16–20; TEMP 36.6–37; O2SAT 91–96
[2020-09-11] MEDS: traZODone HCL 25 MG HALFTAB PO
[2020-09-11] MEDS: Acetaminophen 325 MG TABLET 650 MG PO ×2 (01:30→20:08)
[2020-09-11] MEDS: Omeprazole 20 MG CAPSULE.DR PO (06:01)
[2020-09-11 07:10] LABS: MANUAL DIFF FLAG NO
[2020-09-11 07:18] LABS: Basophils Percent Auto 0.2 % (0-2); Eosinophils Absolute Auto 0.2 X10*3/uL (0.0-0.4); Eosinophils Percent Auto 0.8 % (0-4); Hematocrit 38.5 % (37-47); Hemoglobin 12.6 g/dl (12.0-16.0); Imm Gran Abs Auto 0.11 X10*3/uL (0.00-0.03); Imm Gran Pct Auto 0.6 % (0.0-0.4); Lymphocytes Absolute Auto 2.7 X10*3/uL (1.2-4.9); Lymphocytes Percent Auto 15.3 % (20-40); Mean Corpuscular HGB Conc 32.7 g/dl (31.0-35.0); Mean Corpuscular Hemoglobin 30.1 pg (27.0-33.0); Mean Corpuscular Volume 92.1 fL (80-98); Mean Platelet Volume 10.1 fL (9.4-12.3); Monocytes Percent Auto 5.4 % (2-11); Neutrophils Absolute Auto 13.7 X10*3/uL (2.0-8.3); Neutrophils Percent Auto 77.7 % (45-73); Platelet Count 191 X10*3/uL (160-400); Red Blood Count 4.18 X10*6/uL (4.20-5.50); Red Cell Distribution Width 13.9 % (11.0-16.0); White Blood Count 17.7 X10*3/uL (4.8-10.8)
[2020-09-11 07:58] LABS: Anion Gap 10 (12-20); Blood Urea Nitrogen 18 mg/dL (9-16); Calcium 7.9 mg/dL (8.4-10.2); Carbon Dioxide 30 mmol/L (22-29); Chloride 108 mmol/L (96-108); Creatinine Clr Calc Pharmacy 64.9; Estimated Glomerular Filt Rate > 60; Glucose Random 113 mg/dL (60-115); Sodium 144 mmol/L (135-145)
[2020-09-11] MEDS: 0.9 % Sodium Chloride Flush 3 ML SYRINGE IVFLUSH (09:15)
[2020-09-11] MEDS: Piperacillin Sodium/Tazobactam 3.375 GM in 0.9 % Sodium Chloride 50 ML IV ×3 (09:15→23:45)
[2020-09-11] MEDS: guaiFENesin DM 200/20/10 ML 10 ML SYRUP PO ×3 (09:15→20:10)
[2020-09-11] MEDS: DULoxetine HCl 60 MG CAPSULE.DR PO (09:16)
[2020-09-11] MEDS: Pregabalin 100 MG CAPSULE PO ×2 (09:16→20:09)
--- NOTE | 2020-09-11 10:17 | MHC.CM.PN ---
nurse attending ambulatory care note electronic medica record reviewed ,s
--- NOTE | 2020-09-11 10:18 | MHC.CM.PN ---
NURSE CORPORATE EXECUTIVE CHEF NOTE ELECTRONIC MEDICAL RECORD REVIEWED ALONG WITH CASE DISCUSSED WITH STAFF NURSE , MET WITH PATIENT , SHE IS ACTIVE, INDEPENDENT IN ALL ADLS AND MOBILITY WITH OUT ANY DEVICE. SHE REPORTED THAT HER LAST NOVEMBER, SHE HAS NO VNA OR DME BUT IF NEEDED SHE REQUESTED TO HAVE THE [facility] ( HER HAD THEM). CONFIRMED THAT SHE HAS A HEALTH CARE PROXY, AND HAS CHOSEN HER TWO SONS HER AGENT , I COULD NOT FIND ONE ON FILE , REQUESTED COPY BE BROUGHT IN OR MAILED TO THE [facility] MEDICAL RECORDS ONCE DISCHARGED, PATIENT HAS HISTORY OF RIGHT BREAST CANCER 1999, SHE REPORTED BEING FRIGHTENED WHEN SHE HAD A COUGHING SPELL AND THEN COUGHED UP BLOOD. DISCHARGE [place] [facility] NO SERVICES VS HOME WITH NEW REF TO THE [facility] FOR [facility] (INIATED 09/11/20) TRANSPORTATION FAMILY PCP DR JEREMY CHAPPELL PATIENT INSTRUCTED TO CALL FOR POST HOSPITAL DISCHAGRE FOLLOW UP MEDICARE IMM GIVEN WITH ATTACHED NAME CARD
--- NOTE | 2020-09-11 11:40 | P.PNIM_ITS ---
Subjective Subjective Date of Service: 09/11/20 Interval History: Patient being followed for aspiration pneumonia and acute hypoxic respiratory failure, patient complaining of persistent dry cough, feels lightheaded, denies fever chills no other acute issues overnight noted to have soft BP this morning with tachycardia. Review of Systems General no headache, positive lightheadedness, no fever chills. CVS localized left lower chest pain,no palpitation. Respiratory dry cough, no respiratory distress. Gastrointestinal no nausea, no vomiting, no abdominal pain Physical Exam Vital Signs: Vital Signs: Last Vital Signs Temp 98.6 F 09/11/20 11:23 Pulse 108 H 09/11/20 11:23 Resp 18 09/11/20 11:23 BP 100/57 L 09/11/20 11:23 Pulse Ox 96 09/11/20 11:23 Body Mass Index 31.1 Const: Other: General patient resting comfortably in no acute distress. Neck is supple no JVD. CVS regular rate rhythm, Respiratory lungs diminished breath sound right base with crepitus, no respiratory distress, no wheeze, no rhonchi. Gastrointestinal abdomen soft, nontender, bowel sounds audible Extremities no clubbing cyanosis or edema. Neuro nonfocal Skin no rash Objective Data Current Medications Generic Name Dose Route Start Last Admin Trade Name Freq PRN Reason Stop Dose Admin Acetaminophen 650 mg 09/10/20 16:58 09/11/20 01:30 Acetaminophen 325 Mg Tablet PO 650 mg Q6H PRN Administration Pain, Mild (Pain Scale 1-3) Azelastine HCl 1 spray 09/10/20 16:58 Azelastine Hcl Nasal 137 Mcg/0.137 Ml Bottle NOSTRIL-B BID PRN Congestion Duloxetine HCl 60 mg 09/11/20 09:00 09/11/20 09:16 Duloxetine Hcl 60 Mg Capsule.Dr PO 60 mg DAILY KELLEE Administration Guaifenesin/Dextromethorphan 10 ml 09/11/20 08:30 09/11/20 09:15 Guaifenesin Dm 200/20/10 Ml 10 Ml Syrup PO 10 ml Q6H KELLEE Administration Piperacillin Sod/Tazobactam 50 mls @ 100 mls/hr 09/10/20 16:58 09/11/20 10:03 Sod 3.375 gm/ Sodium Chloride IV Infused Q8H KELLEE Infusion Sodium Chloride 1,000 mls @ 100 mls/hr 09/11/20 12:00 Ns IVCONT .Q10H [facility] Omeprazole 20 mg 09/11/20 06:30 09/11/20 06:01 Omeprazole 20 Mg Capsule. PO 20 mg DAILY@0630 [facility] Administration Ondansetron HCl 4 mg 09/10/20 16:58 Ondansetron Hcl 4 Mg/2 Ml Vial IVPUSH Q8H PRN Nausea and Vomiting Pharmacy Consult 1 each 09/10/20 10:32 Consult Rx Perform Med Rec MISCELLANE ONCE PRN Consult order Pregabalin 100 mg 09/10/20 21:00 09/11/20 09:16 Pregabalin 100 Mg Capsule PO 100 mg BID KELLEE Administration Propranolol HCl 20 mg 09/11/20 12:30 Propranolol Hcl 20 Mg Tablet PO 09/11/20 12:31 ONCE ONE Protocol Sodium Chloride 3 ml 09/10/20 16:58 09/11/20 09:15 0.9 % Sodium Chloride Flush 3 Ml Syringe IVFLUSH 3 ml QSHIFT [facility] Administration Labs CBC & Chem 7: 09/11/20 06:58 09/11/20 06:58 Microbiology Microbiology Results: Microbiology 09/10/20 06:32 Blood - Venous Blood Culture - Preliminary No growth after 24 hours. 09/10/20 06:32 Blood - Venous Blood Culture - Preliminary No growth after 24 hours. Assessment and Plan (1) Pneumonia: Status: Acute (2) Acute respiratory failure with hypoxia: Status: Acute (3) Acute chest wall pain: Status: Acute Assessment and Plan: 74-year-old woman admitted with aspiration pneumonitis. Acute hypoxic respiratory failure secondary to aspiration pneumonia patient feels better, complaining of dry cough ,no shortness of breath, complaining of persistent pain left lower chest Continue IV Zosyn add cough medication, weaned off O2 currently 96% on room. CT chest showed right-sided pneumonia and dilated esophagus likely due to achalasia Blood culture x2 negative elevated WBC will follow Patient treated with doxycycline and prednisone as outpt and recently placed on azithromycin. History of Achalasia continue Prilosec. Hypertension. soft blood pressure takes propranolol 80 mg at a.m. and 40 mg at p.m. for migraine prophylaxis, and also take valsartan 160 mg daily. Since BP low will give propranolol 20 mg and hold other BP meds, poor by mouth intake in last 24 hours will give IV fluid, BUN mildly elevated, follow BMP History of depression continue Cymbalta History of trigeminal neuralgia on Lyrica DVT prophylaxis with Lovenox.
[2020-09-11] MEDS: 0.9 % Sodium Chloride 1,000 ML 100 ML IVCONT ×2 (12:22→20:58)
[2020-09-11] MEDS: Propranolol HCL 20 MG TABLET PO (12:24)
[2020-09-11] MEDS: Docusate Sodium 100 MG CAPSULE PO (20:12)
--- NOTE | 2020-09-11 21:45 | MHC.PIE ---
p; pt c/o insomnia asking for same med from night before ( trazodone 25 mg po) i; dr mejia notified; new order trazodone 25 mg po bedtime prn e; will cont to monitor
[2020-09-12 03:10] VITALS: BP 101/43; PULSE 63; RESP 19; TEMP 36.4; O2SAT 92
[2020-09-12] MEDS: guaiFENesin DM 200/20/10 ML 10 ML SYRUP PO ×2 (03:11→09:08)
[2020-09-12] MEDS: Omeprazole 20 MG CAPSULE.DR PO (06:27)
[2020-09-12] MEDS: 0.9 % Sodium Chloride 1,000 ML 100 ML IVCONT (06:28)
[2020-09-12 06:39] LABS: MANUAL DIFF FLAG NO
[2020-09-12 06:43] LABS: Basophils Percent Auto 0.2 % (0-2); Eosinophils Absolute Auto 0.2 X10*3/uL (0.0-0.4); Eosinophils Percent Auto 1.6 % (0-4); Hematocrit 36.4 % (37-47); Hemoglobin 11.5 g/dl (12.0-16.0); Imm Gran Abs Auto 0.07 X10*3/uL (0.00-0.03); Imm Gran Pct Auto 0.7 % (0.0-0.4); Lymphocytes Percent Auto 18.8 % (20-40); Mean Corpuscular HGB Conc 31.6 g/dl (31.0-35.0); Mean Corpuscular Hemoglobin 29.5 pg (27.0-33.0); Mean Corpuscular Volume 93.3 fL (80-98); Mean Platelet Volume 10.3 fL (9.4-12.3); Monocytes Absolute Auto 0.6 X10*3/uL (0.1-1.2); Monocytes Percent Auto 5.9 % (2-11); Neutrophils Absolute Auto 7.8 X10*3/uL (2.0-8.3); Neutrophils Percent Auto 72.8 % (45-73); Platelet Count 174 X10*3/uL (160-400); White Blood Count 10.7 X10*3/uL (4.8-10.8)
[2020-09-12 07:10] VITALS: BP 98/54; PULSE 67; RESP 18; TEMP 35.9; O2SAT 92
[2020-09-12 07:10] LABS: Anion Gap 11 (12-20); Blood Urea Nitrogen 13 mg/dL (9-16); Calcium 7.7 mg/dL (8.4-10.2); Carbon Dioxide 27 mmol/L (22-29); Chloride 109 mmol/L (96-108); Creatinine Clr Calc Pharmacy 72.8; Estimated Glomerular Filt Rate > 60; Glucose Random 106 mg/dL (60-115); Potassium 4.3 mmol/l (3.3-5.1); Sodium 143 mmol/L (135-145)
[2020-09-12] MEDS: Acetaminophen 325 MG TABLET 650 MG PO (09:07)
[2020-09-12] MEDS: Pregabalin 100 MG CAPSULE PO (09:08)
[2020-09-12] MEDS: DULoxetine HCl 60 MG CAPSULE.DR PO (09:08)
[2020-09-12] MEDS: Piperacillin Sodium/Tazobactam 3.375 GM in 0.9 % Sodium Chloride 50 ML IV (09:08)
--- NOTE | 2020-09-12 10:32 | W.MHC.F2F ---
Service Date Service Date: 09/12/20 Reasons for Services Homebound: Leaving the home is medically contraindicated at this time without the asist of a device and/or another person due th the listed conditions above and below. Certification: Based on the above findings, I certify that this patient is confined to the home and needs intermittent shelter care, physical therapy and/or speech therapy, or continues to need occupational therapy. The patient is under my care, and I have initiated the establishment of the plan of care. The patient will be followed by a physician who will periodically review the plan of care.
--- NOTE | 2020-09-12 10:42 | PM.DS ---
DS: Providers Provider Date of admission: 09/10/20 12:13 Primary care physician: Unknown Physician DS: Diagnosis Discharge Diagnosis (1) Pneumonia: Status: Acute (2) Acute respiratory failure with hypoxia: Status: Acute (3) Acute chest wall pain: Status: Acute DS: Medications Discharge Medications Home Medications: Home Medications Medication Instructions Recorded Confirmed duloxetine 60 mg capsule,delayed 60 mg PO DAILY 08/30/20 09/10/20 release flu vacc 2020-21(65yr ml IM 08/30/20 up)-MF59C(PF) 60 mcg(15 mcgx4)/0.5 mL IM syringe pantoprazole 40 mg tablet,delayed 40 mg PO DAILY 08/30/20 09/10/20 release raloxifene 60 mg tablet 60 mg PO DAILY 08/30/20 09/10/20 azelastine 1 spray INTRANASAL BID PRN 09/10/20 09/10/20 pregabalin [Lyrica] 100 mg PO BID 09/10/20 09/10/20 propranolol 2 tab PO DAILY@0730 09/10/20 09/10/20 Previous Rx's Medication Instructions Recorded amoxicillin-pot clavulanate 1 tab PO BID #14 tab 09/12/20 [Augmentin] DS: Summary Hospital Course Hospital Course: Patient was admitted for acute hypoxic respiratory failure secondary to aspiration pneumonia. She was given IV Zosyn. Her hypoxia resolved. She was able to ambulate to the bathroom with minimal shortness of breath and no desaturation. She will be discharged home on 7 more days of p.o. Augmentin. Time Spent with Patient Time attestation: Total time spent providing and/or coordinating discharge services: Physical Exam Vital Signs: Vital Signs: Last Vital Signs Temp 96.7 F L 09/12/20 07:10 Pulse 67 09/12/20 07:10 Resp 18 09/12/20 07:10 BP 98/54 L 09/12/20 07:10 Pulse Ox 92 09/12/20 07:10 Body Mass Index 31.1 General: AO X 3, no acute distress Resp: CTA bilateral CVS: S1,S2,RRR GI: soft, non tender, non distended Neuro: motor grossly intact Psych: appropriate affect DS: Data Data Completed and Pending Labs on day of discharge: 09/10/20 05:45 ECG 12 lead EKG Stat EKG Documentation DIRECTED CT angio chest PE protocol Stat 09/10/20 05:47 Albuterol Sulfate [Ventolin] 4 puff INHALE ONCE ONE guaiFEN/Codeine SF 200/20/10ML [Robitussin AC 200/20/10ML] 10 ml PO ONCE ONE 09/10/20 05:58 Complete Blood Count Auto Diff Stat Partial Thromboplastin Time Stat 09/10/20 05:59 B Type Natriuretic Peptide Stat Basic Metabolic Panel Stat D Dimer Stat Ferritin Stat Lactate Dehydrogenase Stat Prothrombin Time INR Stat Troponin-I High Sensitivity Stat 09/10/20 06:01 COVID-19 ID NOW ([employer]) Stat 09/10/20 06:32 Lactic Acid Stat 09/10/20 06:46 ondansetron HCL [Zofran] 4 mg .ROUTE .STK-MED ONE ondansetron HCL [Zofran] 4 mg IVPUSH ONCE ONE 09/10/20 07:30 Add Laboratory Test Stat 09/10/20 07:45 Add Laboratory Test Stat 09/10/20 07:46 iohexoL 350 MG/ML [Omnipaque 350 MG/ML] 100 ml IV ONCE ONE 09/10/20 07:51 SARS-CoV2/FLU/RSV Stat 09/10/20 08:00 levoFLOXacin [Levaquin] 500 mg PO ONCE ONE 09/10/20 08:13 Piperacillin Sodium/Tazobactam [Zosyn] 3.375 gm 0.9 % Sodium Chloride [Ns] 50 ml IV ONCE 09/10/20 08:39 Acetaminophen [Tylenol] 650 mg PO ONCE ONE 09/10/20 08:40 Prochlorperazine Edisylate [Compazine] 5 mg IVPUSH ONCE ONE 09/10/20 08:41 Piperacillin Sodium/Tazobactam [Zosyn] 3.375 gm IV .STK-MED ONE 09/10/20 09:41 0.9 % Sodium Chloride [Ns] 1,000 ml IVCONT 999 mls/hr 09/10/20 11:08 ED Diet NOW 09/10/20 11:56 Transfer Order Routine 09/10/20 17:12 ED Diet NOW 09/10/20 17:13 Piperacillin Sodium/Tazobactam [Zosyn] 3.375 gm IV .STK-MED ONE 09/10/20 21:00 Propranolol HCL [Inderal] 40 mg PO BEDTIME 09/10/20 23:10 Piperacillin Sodium/Tazobactam [Zosyn] 3.375 gm IV .STK-MED ONE 09/10/20 23:38 traZODone HCL [Desyrel] 25 mg PO ONCE ONE 09/11/20 06:58 Basic Metabolic Panel DAILY@0600 Complete Blood Count Auto Diff DAILY@0600 09/11/20 07:30 Propranolol HCL [Inderal] 80 mg PO DAILY@0730 09/11/20 09:00 Valsartan [Diovan] 160 mg PO DAILY raloxifene 60 mg PO DAILY 09/11/20 09:04 Piperacillin Sodium/Tazobactam [Zosyn] 3.375 gm IV .STK-MED ONE 09/11/20 12:30 Propranolol HCL [Inderal] 20 mg PO ONCE ONE 09/11/20 16:21 Piperacillin Sodium/Tazobactam [Zosyn] 3.375 gm IV .STK-MED ONE 09/11/20 23:39 Piperacillin Sodium/Tazobactam [Zosyn] 3.375 gm IV .STK-MED ONE 09/12/20 06:13 Basic Metabolic Panel Routine Complete Blood Count Auto Diff Routine 09/12/20 08:55 Piperacillin Sodium/Tazobactam [Zosyn] 3.375 gm IV .STK-MED ONE Laboratory Last Values WBC 10.7 X10*3/uL (4.8-10.8) 09/12/20 06:13 RBC 3.90 X10*6/uL (4.20-5.50) L 09/12/20 06:13 Hgb 11.5 g/dl (12.0-16.0) L 09/12/20 06:13 Hct 36.4 % (37-47) L 09/12/20 06:13 MCV 93.3 fL (80-98) 09/12/20 06:13 MCH 29.5 pg (27.0-33.0) 09/12/20 06:13 MCHC 31.6 g/dl (31.0-35.0) 09/12/20 06:13 RDW 14.0 % (11.0-16.0) 09/12/20 06:13 Plt Count 174 X10*3/uL (160-400) 09/12/20 06:13 MPV 10.3 fL (9.4-12.3) 09/12/20 06:13 Immature Gran % (Auto) 0.7 % (0.0-0.4) H 09/12/20 06:13 Neut % (Auto) 72.8 % (45-73) 09/12/20 06:13 Lymph % (Auto) 18.8 % (20-40) L 09/12/20 06:13 [place] % (Auto) 5.9 % (2-11) 09/12/20 06:13 Eos % (Auto) 1.6 % (0-4) 09/12/20 06:13 Baso % (Auto) 0.2 % (0-2) 09/12/20 06:13 Lymph # (Auto) 2.0 X10*3/uL (1.2-4.9) 09/12/20 06:13 [place] # (Auto) 0.6 X10*3/uL (0.1-1.2) 09/12/20 06:13 Eos # (Auto) 0.2 X10*3/uL (0.0-0.4) 09/12/20 06:13 Baso # (Auto) 0.0 X10*3/uL (0.0-0.2) 09/12/20 06:13 Abs Immat Gran (auto) 0.07 X10*3/uL (0.00-0.03) H 09/12/20 06:13 Absolute Neuts (auto) 7.8 X10*3/uL (2.0-8.3) 09/12/20 06:13 Absolute Nucleated RBC 0.000 X10*3/uL (0.0-0.012) 09/12/20 06:13 Nucleated RBC % (auto) 0.0 /100WBC (0.0-0.2) 09/12/20 06:13 PT 12.1 SEC (10.8-13.0) 09/10/20 05:59 INR 1.0 (0.9-1.1) 09/10/20 05:59 APTT 31.4 SEC (24.1-38.0) 09/10/20 05:58 D-Dimer 231 NG/ML 09/10/20 05:59 Sodium 143 mmol/L (135-145) 09/12/20 06:13 Potassium 4.3 mmol/l (3.3-5.1) 09/12/20 06:13 Chloride 109 mmol/L (96-108) H 09/12/20 06:13 Carbon Dioxide 27 mmol/L (22-29) 09/12/20 06:13 Anion Gap 11 (12-20) L 09/12/20 06:13 BUN 13 mg/dL (9-16) 09/12/20 06:13 Creatinine 0.74 mg/dL (0.5-1.4) 09/12/20 06:13 Estim Creat Clear Calc 72.8 09/12/20 06:13 Estimated GFR > 60 09/12/20 06:13 Random Glucose 106 mg/dL (60-115) 09/12/20 06:13 Lactic Acid 0.7 mmol/L (0.5-2.0) 09/10/20 06:32 Calcium 7.7 mg/dL (8.4-10.2) L 09/12/20 06:13 Ferritin 92 ng/mL (10-250) 09/10/20 05:59 Lactate Dehydrogenase 149 U/L (122-220) 09/10/20 05:59 Troponin I High Sens < 3.5 ng/L (<3.5-17.0) 09/10/20 05:59 B-Natriuretic Peptide 58 pg/mL (<100) 09/10/20 05:59 Coronavirus (PCR) NEGATIVE (Negative) 09/10/20 07:51 COVID-19 (CAIN) Negative (Negative) 09/10/20 06:01 COVID-19 Clin Com See Note 09/10/20 06:01 Influenza Type A (PCR) NEGATIVE (Negative) 09/10/20 07:51 Influenza Type B (PCR) NEGATIVE (Negative) 09/10/20 07:51 RSV RNA Qual (PCR) NEGATIVE (Negative) 09/10/20 07:51 Preliminary micro results at discharge 09/10/20 06:32 Blood Culture - Preliminary Blood - Venous No growth after 48 hours. 09/10/20 06:32 Blood Culture - Preliminary Blood - Venous No growth after 48 hours. Discharge Plan Discharge Patient Disposition: Home Health Service Referrals: Physician,Unknown [Primary Care Provider] - Discharge Medications: New amoxicillin-pot clavulanate [Augmentin] 875-125 mg tablet 1 tab PO BID Qty: 14 RF: 0 Continued pregabalin [Lyrica] 100 mg Capsule 100 mg PO BID RF: 0 propranolol 40 mg tablet 2 tab PO DAILY@0730 RF: 0 azelastine 137 mcg (0.1 %) aerosol,spray 1 spray intranasal BID PRN (Reason: Congestion) RF: 0 pantoprazole 40 mg tablet,delayed release (DR/EC) 40 mg PO DAILY RF: 0 duloxetine 60 mg capsule,delayed release(DR/EC) 60 mg PO DAILY RF: 0 flu vac 2020 [id number](PF) 60 mcg (15 mcg x 4)/0.5 mL syringe IM RF: 0 raloxifene 60 mg tablet 60 mg PO DAILY RF: 0 Discontinued propranolol 40 mg tablet 40 mg PO BEDTIME RF: 0 valsartan 160 mg tablet 160 mg PO DAILY RF: 0 Discharge Orders: Discharge Order (Routine); Ordered 09/12/20 Ordered By: Keo Rodney Diet: advance to usual diet Activity on Discharge: As tolerated Visit Report Forms: Patient Portal Discharge page Care Plan Goals: recovery Health Concerns: aspiration pneumonia Plan of Treatment: augmentin one week, monitor for worsening sypmotoms
[2020-09-12 11:20] VITALS: BP 104/55; PULSE 71; RESP 18; TEMP 36.3; O2SAT 95
--- NOTE | 2020-09-12 12:22 | MHC.CM.PN ---
PT DISCHARGING HOME W/HVNA, SON TO TRANSPORT. CM HAS UPDATED REFERRAL W/DISCHARGE SUMMARY AND FACE TO FACE.
== END 2020-09-12 12:38 | disposition home health service (06) | DRG 177 ==
LOC: HO.ED 14:46 → HO.S3 19:06
PROVIDERS: Internal Medicine; Nurse Practitioner Acute Care; Admitting Provider Hospitalist; Emergency Provider Emergency Medicine; PCP Internal Medicine; Visit Provider Internal Medicine
DX: J69.0 Pneumonitis due to inhalation of food and vomit (principal); J96.01 Acute respiratory failure with hypoxia; R04.2 Hemoptysis; G50.0 Trigeminal neuralgia; K21.9 Gastro-esophageal reflux disease without esophagitis; I10 Essential (primary) hypertension; Z20.828 Contact with and (suspected) exposure to other viral communicable diseases; Z79.899 Other long term (current) drug therapy
CPT/HCPCS: 0241U; 36415; 71275; 80048; 82728; 83605; 83615; 83880; 84484; 85025; 85379; 85610; 85730; 87040; 87635; 93005; 96361; 96365; 96375; 99285; J2405; J2543; Q9967

== ENCOUNTER 2020-09-28 08:54 | Outpatient (REF) | payer MEDICARE, OTHER, SELFPAY ==
--- NOTE | 2020-09-28 | MM_ITS ---
EXAMINATION: MM SCREENING DIGITAL BREAST TOMOSYNTHESIS, BILATERAL CLINICAL INFORMATION: Screening. Asymptomatic. COMPARISON: Mammography: 08/27/2019 and studies dating back to 07/20/2013. TECHNIQUE: Digital breast tomosynthesis is performed in both the craniocaudal and mediolateral oblique views along with computer-aided detection (CAD). Synthesized 2D images are generated from the tomosynthesis. Right breast exaggerated craniocaudal views also performed. FINDINGS: There are scattered areas of fibroglandular density (ACR BI-RADS breast composition Category b). Postsurgical change from previous lumpectomy again noted within the right breast. There is a stable parenchymal pattern within the left breast without evidence of new abnormal dominant mass or suspicious grouping of microcalcifications. MM/MM tomosynthesis screening BI IMPRESSION: There are no significant changes from prior study. ASSESSMENT: BI-RADS 2: Benign. RECOMMENDATION: Routine annual mammography screening. This patient's information was entered into a reminder system with a target due date for their next mammogram.
== END 2020-09-28 08:55 | disposition home or self-care (01) ==
LOC: HO.MAMMO 08:54
PROVIDERS: PCP Internal Medicine; Visit Provider Internal Medicine
DX: Z12.31 Encounter for screening mammogram for malignant neoplasm of breast (principal)
CPT/HCPCS: 77063; 77067

== ENCOUNTER 2021-04-21 13:00 | Outpatient (RCR) | payer MEDICARE, OTHER, SELFPAY | END 2021-04-28 15:23 | disposition home or self-care (01) | LOC: HO.PTCHIC 13:00 | PROVIDERS: PCP Internal Medicine; Visit Provider Internal Medicine | DX: M81.0 Age-related osteoporosis without current pathological fracture (principal); Z91.81 History of falling | CPT/HCPCS: 97110; 97112; 97140; 97162; 97530 ==

== ENCOUNTER 2021-07-07 14:20 | Outpatient (REF) | payer MEDICARE, OTHER, SELFPAY | END 2021-07-07 14:21 | disposition home or self-care (01) | LOC: HO.LNP 14:20 | PROVIDERS: Visit Provider Specialist | DX: H00.12 Chalazion right lower eyelid (principal) | CPT/HCPCS: 88305 ==

== ENCOUNTER 2021-08-22 10:26 | Outpatient (REF) | payer MEDICARE, OTHER, SELFPAY | END 2021-08-22 10:27 | disposition home or self-care (01) | LOC: HO.MAMMO 10:26 | PROVIDERS: PCP Internal Medicine; Visit Provider Internal Medicine | DX: Z13.89 Encounter for screening for other disorder (principal) ==

== ENCOUNTER 2021-10-02 11:13 | Outpatient (REF) | payer MEDICARE, OTHER, SELFPAY ==
--- NOTE | ~2021-10-02 | MM_ITS ---
EXAMINATION: MM SCREENING DIGITAL BREAST TOMOSYNTHESIS, BILATERAL CLINICAL INFORMATION: Due for yearly. 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 Patient also notes history of lymphoma. COMPARISON: Mammography: 09/28/2020, 08/27/2019, 08/22/2018, 08/20/2017 TECHNIQUE: Digital breast tomosynthesis is performed in both the craniocaudal and mediolateral oblique views along with computer-aided detection (CAD). Synthesized 2D images are generated from the tomosynthesis. Additional exaggerated right CC view is provided. FINDINGS: There are scattered areas of fibroglandular density (ACR BI-RADS breast composition Category b). There is old scarring on the right upper outer quadrant along with surgical clips consistent with the prior lumpectomy. There is a biopsy clip marker again seen anterior 4:00 right breast. Neither breast shows interval mass or architectural abnormality or developing density. The axilla and skin contours are unremarkable. There are scattered calcifications in each breast. Some loosely grouped punctate round calcifications posterior central left breast are stable from prior exams. There are no significant changes. MM/MM tomosynthesis screening BI IMPRESSION: No significant changes from prior studies. ASSESSMENT: BI-RADS 2: Benign RECOMMENDATION: Routine annual mammography screening. This patient's information was entered into a reminder system with a target due date for their next mammogram.
== END 2021-10-02 11:14 | disposition home or self-care (01) ==
LOC: HO.MAMMO 11:13
PROVIDERS: PCP Internal Medicine; Visit Provider Internal Medicine
DX: Z12.31 Encounter for screening mammogram for malignant neoplasm of breast (principal)
CPT/HCPCS: 77063; 77067

== ENCOUNTER 2022-02-12 09:17 | Day surgery (SDC) | payer MEDICARE, OTHER, SELFPAY ==
[2022-02-02 10:46] VITALS: BMI 25.0
--- NOTE | 2022-02-08 08:35 | MHC.SHP ---
Pre-Procedural Eval Section A Date of Service: 02/08/22 The patient is an INPATIENT: No Changes since office visit: No Cold of Flu in the past 2 weeks, No New Medical Problems, No Changes in Medication and No Patient answered all questions The History & Physical has been completed within 30 days and I have reviewed it.: Yes Section B Chief Complaint: Age-related nuclear cataract, right eye Allergies: Allergies Allergy/AdvReac Type Severity Reaction Status Date / Time nitroglycerin [NITROGLYCERIN] AdvReac Severe HYPOTENSION Verified 01/30/22 10:52 Plan Diagnosis/Plan: Unchanged I have reviewed the history and physical and performed a pertinent physical examination on my patient. No changes have occurred unless specified.
--- NOTE | 2022-02-08 11:49 | HO.ANESPROP2 ---
Documented by User: Monica Mishra NP 02/08/22 11:49 HPI - Anesthesia Eval Consult details Narrative: 76yo F for Right Cataract Extraction IOL Insertion PCP cleared No previous cataract on record [facility] Active Problems Active Problems: All Active Problems (Updated 01/30/22 @ 11:28 by Chen Pop MD) Cataract (Acute) RLS (restless legs syndrome) (Acute) Insomnia (Acute) Anxiety (Acute) History of colonoscopy (Acute) Hx of breast cancer (Acute) Multiple myeloma (Acute) Past Medical History Medical History (Updated 01/30/22 @ 11:28 by Chen Pop MD) Ankle fracture, left Anxiety Cataract GERD (gastroesophageal reflux disease) Hx of breast cancer Hypertension Insomnia Multiple myeloma Post-nasal drip RLS (restless legs syndrome) Trigeminal neuralgia Family History Family History Other Mental health disorder Surgical History Surgical History (Updated 01/30/22 @ 11:18 by Chen Pop MD) H/O left knee surgery History of colonoscopy Status post ORIF of fracture of ankle Social History Social History Household Members Other:: , 2 sons, Housing: House Are you a primary career guidance technician to a significant other at home: No Do you presently have visiting nurse or other home services: No Patient Tobacco Use Status: Former Tobacco user Quit Date: Tobacco use type: Cigarette Years Smoked: 3 years Use of substances other than those prescribed or required for medical reasons: No Have you been hit, kicked, punched, or otherwise hurt by someone within the past year? If so, by whom?: No Are you DNR?: No Advance Directives: No (will bring copy dos) Advance Directives Information Provided: Yes Advance Directives on File: No service: No Current occupational status: retired Cognitive needs: No Hearing needs: No Vision needs: Yes Meds Allergies Allergy/AdvReac Type Severity Reaction Status Date / Time nitroglycerin [NITROGLYCERIN] AdvReac Severe HYPOTENSION Verified 01/30/22 10:52 Home Medications Medication Instructions Recorded Confirmed Last Taken Type duloxetine 60 mg capsule,delayed 60 mg PO DAILY 08/30/20 02/02/22 09/09/20 History release flu vacc 2020-21(65yr ml IM 08/30/20 01/30/22 07/10/20 History up)-MF59C(PF) 60 mcg(15 mcgx4)/0.5 mL IM syringe raloxifene 60 mg tablet 60 mg PO DAILY 08/30/20 02/02/22 09/09/20 History acyclovir 400 mg tablet 400 mg PO BID 11/30/21 02/02/22 Unknown History ascorbic acid (vitamin C) 1,000 mg 1,000 mg PO .daily tab 11/30/21 02/02/22 Unknown History tablet,extended release aspirin 81 mg tablet,delayed 81 mg PO DAILY 11/30/21 02/02/22 Unknown History release (Adult Low Dose Aspirin) calcium acetate PO .daily 11/30/21 01/30/22 Unknown History docusate sodium 250 mg capsule 250 mg PO BID 11/30/21 02/02/22 Unknown History (Stool Softener) gabapentin 100 mg capsule 400 mg PO BEDTIME 11/30/21 01/30/22 Unknown History gabapentin 300 mg capsule 300 mg PO BEDTIME 11/30/21 01/30/22 Unknown History melatonin 3 mg capsule 3 mg PO BEDTIME PRN 11/30/21 02/02/22 Unknown History omega-3 fatty acids 1,000 mg 1,000 mg PO DAILY 11/30/21 02/02/22 Unknown History capsule pantoprazole 40 mg tablet,delayed 40 mg PO BID tab 11/30/21 01/30/22 Unknown History release sulfamethoxazole PO .three times weekly 11/30/21 01/30/22 Unknown History trazodone 50 mg tablet 50 mg PO DAILY 11/30/21 01/30/22 Unknown History vitamin E 200 unit capsule 400 unit PO DAILY cap 11/30/21 01/30/22 Unknown History ropinirole 0.5 mg tablet 1 mg PO BID 02/02/22 02/02/22 Unknown History Exam Exam Date and Time: February 08, 2022 1149 Height,Weight and Vital Signs: Height 5 ft 5 in Weight 68.039 kg Assessment and Plan Assessment Anesthesia Assessment: Chart Reviewed Documented by User: Nicholas Gutierrez MD 02/12/22 10:48 PMFSH Past Medical History Medical History (Updated 01/30/22 @ 11:28 by Chen Pop MD) Ankle fracture, left Anxiety Cataract GERD (gastroesophageal reflux disease) Hx of breast cancer Hypertension Insomnia Multiple myeloma Post-nasal drip RLS (restless legs syndrome) Trigeminal neuralgia Family History Family History Other Mental health disorder Family history of problems with anesthesia: No Surgical History Surgical History (Updated 01/30/22 @ 11:18 by Chen Pop MD) H/O left knee surgery History of colonoscopy Status post ORIF of fracture of ankle History of Problems with Anesthesia: No Social History Social History Household Members Other:: , 2 sons, Housing: House Are you a primary career guidance technician to a significant other at home: No Do you presently have visiting nurse or other home services: No Patient Tobacco Use Status: Former Tobacco user Quit Date: Tobacco use type: Cigarette Years Smoked: 3 years Use of substances other than those prescribed or required for medical reasons: No Have you been hit, kicked, punched, or otherwise hurt by someone within the past year? If so, by whom?: No Are you DNR?: No Advance Directives: No (will bring copy dos) Advance Directives Information Provided: Yes Advance Directives on File: No service: No Current occupational status: retired Cognitive needs: No Hearing needs: No Vision needs: Yes Meds Allergies Allergy/AdvReac Type Severity Reaction Status Date / Time nitroglycerin [NITROGLYCERIN] AdvReac Severe HYPOTENSION Verified 01/30/22 10:52 Home Medications Medication Instructions Recorded Confirmed Last Taken Type duloxetine 60 mg capsule,delayed 60 mg PO DAILY 08/30/20 02/02/22 09/09/20 History release flu vacc 2020-(65yr ml IM 08/30/20 01/30/22 07/10/20 History up)-MF59C(PF) 60 mcg(15 mcgx4)/0.5 mL IM syringe raloxifene 60 mg tablet 60 mg PO DAILY 08/30/20 02/02/22 09/09/20 History acyclovir 400 mg tablet 400 mg PO BID 11/30/21 02/02/22 Unknown History ascorbic acid (vitamin C) 1,000 mg 1,000 mg PO .daily tab 11/30/21 02/02/22 Unknown History tablet,extended release aspirin 81 mg tablet,delayed 81 mg PO DAILY 11/30/21 02/02/22 Unknown History release (Adult Low Dose Aspirin) calcium acetate PO .daily 11/30/21 01/30/22 Unknown History docusate sodium 250 mg capsule 250 mg PO BID 11/30/21 02/02/22 Unknown History (Stool Softener) gabapentin 100 mg capsule 400 mg PO BEDTIME 11/30/21 01/30/22 Unknown History gabapentin 300 mg capsule 300 mg PO BEDTIME 11/30/21 01/30/22 Unknown History melatonin 3 mg capsule 3 mg PO BEDTIME PRN 11/30/21 02/02/22 Unknown History omega-3 fatty acids 1,000 mg 1,000 mg PO DAILY 11/30/21 02/02/22 Unknown History capsule pantoprazole 40 mg tablet,delayed 40 mg PO BID tab 11/30/21 01/30/22 Unknown History release sulfamethoxazole PO .three times weekly 11/30/21 01/30/22 Unknown History trazodone 50 mg tablet 50 mg PO DAILY 11/30/21 01/30/22 Unknown History vitamin E 200 unit capsule 400 unit PO DAILY cap 11/30/21 01/30/22 Unknown History ropinirole 0.5 mg tablet 1 mg PO BID 02/02/22 02/02/22 Unknown History Exam Airway Mallampati Class: II TM Dist: >3cm Neck ROM: Full Partial: Upper Loose/Missing/Broken Teeth: Yes (ectremely poor dentition even with upper partial. lower many missing, cracked and discolored) Heart: [id number] Lungs: cta b/l Assessment and Plan Assessment Anesthesia Assessment: Anesthesia Plan Discussed Final Anesthetic Review Family History of Problems with Anesthesia: No History of Problems with Anesthesia: No NPO: Yes ASA Class: III Final Preanesthetic Review: No Changes in Pt Med Stat, Meds/Allgs Chart Reviewed, Consent Obtained/Reviewed and Anes Risks/Benef Reviewed Patient Risk: Intermediate Procedure Risk: Low Assessment/Block/Sedation in SS: Assess/Block/Sedation-SS Anesthetic Plan Anesthetic Plan: MAC: and Agree w/ Assess. and Plan Disposition: Standard PACU
[2022-02-12 10:53] VITALS: BP 162/80; PULSE 61; RESP 16; TEMP 37.2; O2SAT 98
[2022-02-12] MEDS: Tetracaine HCl/PF 0.5% Oph Sol 4 ML DROPS 1 DROP EYE-RIGHT (10:56)
[2022-02-12] MEDS: Lactated Ringers 500 ML 50 ML IV (10:59)
[2022-02-12] MEDS: Tropicamide 1 % Ophth Sol 3 ML BTL 1 DROP EYE-RIGHT ×3 (10:59→11:05)
[2022-02-12] MEDS: Phenylephrine HCL 2.5% Oph SoL 2 ML BOTTLE 1 DROP EYE-RIGHT ×3 (11:01→11:07)
--- NOTE | 2022-02-12 11:49 | P.PCNO_ITS ---
Ophthalmology Procedure Procedure Date of Service: 02/12/22 Ophthalmology Viscoelastic: Healon Duet Dual Pack Pro Ophthalmology Lenses: TECNIS ZXR00 (21.5) Procedure Notes: PREOPERATIVE DIAGNOSIS: Decreased visual acuity right eye secondary to cataract POSTOPERATIVE DIAGNOSIS: Same PROCEDURE: Right cataract extraction with multifocal intraocular lens insertion SURGEON: Alejandro Connors M.D. ANESTHESIA: Topical/MAC ESTIMATED BLOOD LOSS: None COMPLICATIONS: None After obtaining informed consent, the patient was brought to the operating room suite and placed in the supine position. After adequate sedation per anesthesia, topical drops of Tetracaine were given to the right eye. The eye was then prepped and draped in the usual sterile fashion. The operating room microscope was then positioned over the operative eye and a lid speculum placed. A paracentesis was created. Viscoelastic was then instilled into the anterior chamber. A three plane incision was then created temporally, utilizing a 2.85 mm keratome. Capsulotomy forceps were then utilized to create a circular tear capsulotomy. Hydrodissection and hydrodelineation were carried out until adequate mobilization of the nucleus occurred. Phacoemulsification was then utilized to remove the dense central nu cleus followed by removal of the cortical material utilizing the automated aspiration irrigation unit. Viscoelastic was instilled into the posterior capsular bag followed by placement of a multifocal posterior chamber intraocular lens without difficulty. The residual Viscoelastic was then removed utilizing the automated IA machine. The wound was checked and found to be watertight. The patient tolerated the procedure well and the lid speculum was removed. Intracameral injection of Vigamox 0.1 mL followed by a subtenon injection of Kenalog-40 0.2 mL were administered. The patient will be seen in the a.m.
[2022-02-12 12:12] VITALS: BP 156/75; PULSE 54; RESP 16; TEMP 36.6; O2SAT 100
== END 2022-02-12 12:29 | disposition home or self-care (01) ==
PROVIDERS: PCP Internal Medicine; Visit Provider Ophthalmology
PROC: (CPT 66984; principal; 2022-02-12 12:10)
DX: H25.11 Age-related nuclear cataract, right eye (principal); H35.031 Hypertensive retinopathy, right eye; H54.7 Unspecified visual loss; I10 Essential (primary) hypertension; C90.01 Multiple myeloma in remission; G25.81 Restless legs syndrome; Z92.21 Personal history of antineoplastic chemotherapy; Z79.899 Other long term (current) drug therapy; Z79.82 Long term (current) use of aspirin; Z88.8 Allergy status to other drugs, medicaments and biological substances; Z87.891 Personal history of nicotine dependence
CPT/HCPCS: 66984; J2250; J3010; J3300; V2788

== ENCOUNTER 2022-02-26 08:15 | Day surgery (SDC) | payer MEDICARE, OTHER, SELFPAY ==
[2022-02-02 10:49] VITALS: BMI 25.0
--- NOTE | 2022-02-22 09:26 | MHC.SHP ---
Pre-Procedural Eval Section A Date of Service: 02/22/22 The patient is an INPATIENT: No Changes since office visit: No Cold of Flu in the past 2 weeks, No New Medical Problems, No Changes in Medication and No Patient answered all questions The History & Physical has been completed within 30 days and I have reviewed it.: Yes Section B Chief Complaint: Age-related nuclear cataract, left eye Allergies: Allergies Allergy/AdvReac Type Severity Reaction Status Date / Time nitroglycerin [NITROGLYCERIN] AdvReac Severe HYPOTENSION Verified 01/30/22 10:52 Plan Diagnosis/Plan: Unchanged I have reviewed the history and physical and performed a pertinent physical examination on my patient. No changes have occurred unless specified.
--- NOTE | 2022-02-23 11:41 | P.CONAN_ITS ---
Documented by User: Monica Mishra NP 02/23/22 12:21 HPI - Anesthesia Eval Consult details Narrative: 76yo F for Left Cataract Extraction IOL Insertion PCP cleared Right eye 02/12/2022 with MAC: Fent 50, Midaz 2 PMFSH Active Problems Active Problems: All Active Problems (Updated 01/30/22 @ 11:28 by Chen Pop MD) Cataract (Acute) RLS (restless legs syndrome) (Acute) Insomnia (Acute) Anxiety (Acute) History of colonoscopy (Acute) Hx of breast cancer (Acute) Multiple myeloma (Acute) Past Medical History Medical History (Updated 01/30/22 @ 11:28 by Chen Pop MD) Ankle fracture, left GERD (gastroesophageal reflux disease) Hypertension Post-nasal drip Trigeminal neuralgia Family History Family History Other Mental health disorder Family history of problems with anesthesia: No Surgical History Surgical History (Updated 01/30/22 @ 11:18 by Chen Pop MD) H/O left knee surgery Status post ORIF of fracture of ankle History of Problems with Anesthesia: No Social History Social History Household Members Other:: , 2 sons, Housing: House Are you a primary health care marketing manager to a significant other at home: No Do you presently have visiting nurse or other home services: No Patient Tobacco Use Status: Former Tobacco user Quit Date: Tobacco use type: Cigarette Years Smoked: 3 years Use of substances other than those prescribed or required for medical reasons: No Have you been hit, kicked, punched, or otherwise hurt by someone within the past year? If so, by whom?: No Are you DNR?: No Advance Directives: No Advance Directives Information Provided: Yes Advance Directives on File: No service: No Current occupational status: retired Cognitive needs: No Hearing needs: No Vision needs: Yes Meds Allergies Allergy/AdvReac Type Severity Reaction Status Date / Time nitroglycerin [NITROGLYCERIN] AdvReac Severe HYPOTENSION Verified 01/30/22 10:52 Home Medications Medication Instructions Recorded Confirmed Last Taken Type duloxetine 60 mg capsule,delayed 60 mg PO DAILY 08/30/20 02/02/22 09/09/20 History release flu vacc 2020-21(65yr ml IM 08/30/20 01/30/22 07/10/20 History up)-MF59C(PF) 60 mcg(15 mcgx4)/0.5 mL IM syringe raloxifene 60 mg tablet 60 mg PO DAILY 08/30/20 02/02/22 09/09/20 History acyclovir 400 mg tablet 400 mg PO BID 11/30/21 02/02/22 Unknown History ascorbic acid (vitamin C) 1,000 mg 1,000 mg PO .daily 11/30/21 02/02/22 Unknown History tablet,extended release aspirin 81 mg tablet,delayed 81 mg PO DAILY 11/30/21 02/02/22 Unknown History release (Adult Low Dose Aspirin) calcium acetate PO .daily 11/30/21 01/30/22 Unknown History docusate sodium 250 mg capsule 250 mg PO BID 11/30/21 02/02/22 Unknown History (Stool Softener) gabapentin 100 mg capsule 400 mg PO BEDTIME 11/30/21 01/30/22 Unknown History gabapentin 300 mg capsule 300 mg PO BEDTIME 11/30/21 01/30/22 Unknown History melatonin 3 mg capsule 3 mg PO BEDTIME PRN Insomnia 11/30/21 02/02/22 Unknown History omega-3 fatty acids 1,000 mg 1,000 mg PO DAILY 11/30/21 02/02/22 Unknown History capsule pantoprazole 40 mg tablet,delayed 40 mg PO BID 11/30/21 01/30/22 Unknown History release sulfamethoxazole PO .three times weekly 11/30/21 01/30/22 Unknown History trazodone 50 mg tablet 50 mg PO DAILY 11/30/21 01/30/22 Unknown History vitamin E 200 unit capsule 400 unit PO DAILY 11/30/21 01/30/22 Unknown History ropinirole 0.5 mg tablet 1 mg PO BID 02/02/22 02/02/22 Unknown History Exam Exam Date and Time: February 23, 2022 1141 Height,Weight and Vital Signs: Height 5 ft 5 in Weight 68.039 kg Assessment and Plan Assessment Anesthesia Assessment: Chart Reviewed Final Anesthetic Review Family History of Problems with Anesthesia: No History of Problems with Anesthesia: No Documented by User: Lucio Jay MD 02/26/22 10:25 [facility] Past Medical History Medical History (Updated 01/30/22 @ 11:28 by Chen Pop MD) Ankle fracture, left GERD (gastroesophageal reflux disease) Hypertension Post-nasal drip Trigeminal neuralgia Family History Family History Other Mental health disorder Surgical History Surgical History (Updated 01/30/22 @ 11:18 by Chen Pop MD) H/O left knee surgery Status post ORIF of fracture of ankle Social History Social History Household Members Other:: , 2 sons, Housing: House Are you a primary health care marketing manager to a significant other at home: No Do you presently have visiting nurse or other home services: No Patient Tobacco Use Status: Former Tobacco user Quit Date: Tobacco use type: Cigarette Years Smoked: 3 years Use of substances other than those prescribed or required for medical reasons: No Have you been hit, kicked, punched, or otherwise hurt by someone within the past year? If so, by whom?: No Are you DNR?: No Advance Directives: No Advance Directives Information Provided: Yes Advance Directives on File: No service: No Current occupational status: retired Cognitive needs: No Hearing needs: No Vision needs: Yes Meds Allergies Allergy/AdvReac Type Severity Reaction Status Date / Time nitroglycerin [NITROGLYCERIN] AdvReac Severe HYPOTENSION Verified 01/30/22 10:52 Home Medications Medication Instructions Recorded Confirmed Last Taken Type duloxetine 60 mg capsule,delayed 60 mg PO DAILY 08/30/20 02/02/22 09/09/20 History release flu vacc 2020-21(65yr ml IM 08/30/20 01/30/22 07/10/20 History up)-MF59C(PF) 60 mcg(15 mcgx4)/0.5 mL IM syringe raloxifene 60 mg tablet 60 mg PO DAILY 08/30/20 02/02/22 09/09/20 History acyclovir 400 mg tablet 400 mg PO BID 11/30/21 02/02/22 Unknown History ascorbic acid (vitamin C) 1,000 mg 1,000 mg PO .daily 11/30/21 02/02/22 Unknown History tablet,extended release aspirin 81 mg tablet,delayed 81 mg PO DAILY 11/30/21 02/02/22 Unknown History release (Adult Low Dose Aspirin) calcium acetate PO .daily 11/30/21 01/30/22 Unknown History docusate sodium 250 mg capsule 250 mg PO BID 11/30/21 02/02/22 Unknown History (Stool Softener) gabapentin 100 mg capsule 400 mg PO BEDTIME 11/30/21 01/30/22 Unknown History gabapentin 300 mg capsule 300 mg PO BEDTIME 11/30/21 01/30/22 Unknown History melatonin 3 mg capsule 3 mg PO BEDTIME PRN Insomnia 11/30/21 02/02/22 Unknown History omega-3 fatty acids 1,000 mg 1,000 mg PO DAILY 11/30/21 02/02/22 Unknown History capsule pantoprazole 40 mg tablet,delayed 40 mg PO BID 11/30/21 01/30/22 Unknown History release sulfamethoxazole PO .three times weekly 11/30/21 01/30/22 Unknown History trazodone 50 mg tablet 50 mg PO DAILY 11/30/21 01/30/22 Unknown History vitamin E 200 unit capsule 400 unit PO DAILY 11/30/21 01/30/22 Unknown History ropinirole 0.5 mg tablet 1 mg PO BID 02/02/22 02/02/22 Unknown History Exam Airway Mallampati Class: II TM Dist: >3cm Neck ROM: Full Assessment and Plan Assessment Anesthesia Assessment: Anesthesia Plan Discussed Final Anesthetic Review NPO: Yes ASA Class: III Final Preanesthetic Review: No Changes in Pt Med Stat, Meds/Allgs Chart Reviewed, Consent Obtained/Reviewed and Anes Risks/Benef Reviewed Patient Risk: Low Procedure Risk: Low Anesthetic Plan Anesthetic Plan: MAC: Disposition: Standard PACU
[2022-02-26 09:54] VITALS: BP 134/54; PULSE 55; RESP 16; TEMP 36.8; O2SAT 97
[2022-02-26] MEDS: Lactated Ringers 500 ML 50 ML IV (10:00)
[2022-02-26] MEDS: Tetracaine HCl/PF 0.5% Oph Sol 4 ML DROPS 1 DROP EYE-LEFT (10:01)
[2022-02-26] MEDS: Tropicamide 1 % Ophth Sol 3 ML BTL 1 DROP EYE-LEFT ×3 (10:02→10:08)
[2022-02-26] MEDS: Phenylephrine HCL 2.5% Oph SoL 2 ML BOTTLE 1 DROP EYE-LEFT ×3 (10:04→10:10)
--- NOTE | 2022-02-26 11:18 | HO.PNOPHT ---
Ophthalmology Procedure Procedure Date of Service: 02/26/22 Ophthalmology Viscoelastic: Healon Duet Dual Pack Pro Ophthalmology Lenses: TECNIS MULTI [id number] (20.) Procedure Notes: PREOPERATIVE DIAGNOSIS: Decreased visual acuity left eye secondary to cataract POSTOPERATIVE DIAGNOSIS: Same PROCEDURE: Left cataract extraction with intraocular lens insertion SURGEON: Alejandro Connors M.D. ANESTHESIA: Topical/MAC ESTIMATED BLOOD LOSS: None COMPLICATIONS:Capsular rupture After obtaining informed consent, the patient was brought to the operation room suite and placed in the supine position. After adequate sedation per anesthesia, topical drops of Tetracaine were given to the left eye. The eye was then prepped and draped in the usual sterile fashion. The operating room microscope was then positioned over the operative eye and a lid speculum placed. A paracentesis was created. Viscoelastic was then instilled into the anterior chamber. A three plane incision was then created temporally, utilizing a 2.85 mm keratome. Capsulotomy forceps were then utilized to create a circular tear capsulotomy. Hydrodissection and hydrodelineation were carried out until adequate mobilization of the nucleus occurred. Phacoemulsification was then utilized to remove the dense central nucleus followed by removal of the cortical material utilizing the automated aspiration irrigation unit. Viscoat elastic was instilled into the posterior capsular bag followed by placement of a posterior chamber intraocular lens without difficulty. The residual Viscoat elastic was then removed utilizing the automated IA machine. A Capsular ruptured occures requiring an IOL exchange. The wound was enlarged with a keratome. The IOL weas folded intraocularlyand removed. An Anterior vitrectomy was then preformed. The wound was checked and was free of vitreous. Vicoat was instilled followed by placement of a ZMAOO 20 Diopter lens into the sulcus. Miochol was installed resulting in a small round pupil.The wound was check and found to be watertight. The patient tolerated the procedure well and the lid speculum was removed. Intracameral injection of Vigamox 0.1 mL followed by a subtenon injection of Kenalog-40 0.2 mL were administered. The patient will be seen in the a.m.
[2022-02-26 12:08] VITALS: BP 123/66; PULSE 56; RESP 18; TEMP 36.3; O2SAT 98
[2022-02-26] MEDS: Acetaminophen 325 MG TABLET 650 MG PO (12:12)
[2022-02-26] MEDS: oxyCODONE HCl Immed Release 5 MG TABLET PO (12:27)
== END 2022-02-26 12:19 | disposition home or self-care (01) ==
PROVIDERS: PCP Internal Medicine; Visit Provider Ophthalmology
PROC: (CPT 66984; principal; 2022-02-26 11:00)
DX: H25.12 Age-related nuclear cataract, left eye (principal); H52.4 Presbyopia; H35.031 Hypertensive retinopathy, right eye; I10 Essential (primary) hypertension; C90.01 Multiple myeloma in remission; G25.81 Restless legs syndrome; G50.0 Trigeminal neuralgia; Z92.21 Personal history of antineoplastic chemotherapy; Z85.3 Personal history of malignant neoplasm of breast; Z79.810 Long term (current) use of selective estrogen receptor modulators (SERMs); Z79.82 Long term (current) use of aspirin; Z79.899 Other long term (current) drug therapy; Z88.8 Allergy status to other drugs, medicaments and biological substances; Z87.891 Personal history of nicotine dependence
CPT/HCPCS: 66984; J2250; J3010; J3300; V2788

== ENCOUNTER 2022-03-02 13:23 | Outpatient (REF) | payer MEDICARE, OTHER, SELFPAY ==
[2022-03-02 14:05] LABS: COVID-19 Test Negative (Negative)
== END 2022-03-02 13:24 | disposition home or self-care (01) ==
LOC: HO.LAB 13:23
PROVIDERS: Visit Provider Internal Medicine
DX: Z20.822 Contact with and (suspected) exposure to COVID-19 (principal)
CPT/HCPCS: 87635; C9803

== ENCOUNTER 2022-03-29 10:44 | Outpatient (REF) | payer MEDICARE, OTHER, SELFPAY ==
[2022-03-29 13:46] LABS: MANUAL DIFF FLAG NO
[2022-03-29 13:56] LABS: Basophils Percent Auto 0.4 % (0-2); Eosinophils Percent Auto 0.4 % (0-4); Hematocrit 35.7 % (37.0-47.0); Hemoglobin 11.1 g/dl (12.0-16.0); Lymphocytes Absolute Auto 1.2 X10*3/uL (1.2-4.9); Mean Corpuscular HGB Conc 31.1 g/dl (31.0-35.0); Mean Corpuscular Hemoglobin 28.1 pg (27.0-33.0); Mean Corpuscular Volume 90.4 fL (80.0-98.0); Monocytes Absolute Auto 0.3 X10*3/uL (0.1-1.2); Monocytes Percent Auto 10.3 % (2-11); Neutrophils Absolute Auto 1.1 x10*3/uL (2.0-8.3); Neutrophils Percent Auto 41.9 % (45-73); Platelet Count 207 X10*3/uL (160-400); Red Blood Count 3.95 X10*6/uL (4.20-5.50); Red Cell Distribution Width 14.3 % (11.0-16.0)
[2022-03-29 14:01] LABS: White Blood Count 2.5 X10*3/uL (4.8-10.8)
[2022-03-29 14:05] LABS: Alanine Aminotransferase 11 U/L (0-31); Anion Gap 10 (12-20); Aspartate Amino Transferase 15 U/L (5-31); Bilirubin Total 0.2 mg/dL (0.0-1.0); Blood Urea Nitrogen 15 mg/dL (9-16); Carbon Dioxide 28 mmol/L (22-29); Chloride 107 mmol/L (96-108); Estimated Glomerular Filt Rate 46; Magnesium 2.5 mg/dL (1.6-2.6); Potassium 4.6 mmol/L (3.3-5.1); Sodium 140 mmol/L (135-145)
[2022-03-29 14:27] LABS: T4 Thyroxine 6.1 ug/dL (4.5-12.0); Thyroid Stimulating Hormone 1.44 uIU/mL (0.32-4.0)
[2022-03-31 18:17] LABS: Triiodothyronine T3 Free 2.3 pg/mL (2.3-4.2)
== END 2022-03-29 10:45 | disposition home or self-care (01) ==
LOC: HO.HMGCLDS 10:44
PROVIDERS: PCP Internal Medicine Hematology & Oncology; Visit Provider Physician Assistant Medical
DX: Z13.89 Encounter for screening for other disorder (principal)
CPT/HCPCS: 36415; 80051; 82247; 82565; 83735; 84436; 84439; 84443; 84450; 84460; 84481; 84520; 85025

== ENCOUNTER 2022-09-07 13:01 | Outpatient (REF) | payer MEDICARE, OTHER, SELFPAY ==
[2022-09-08 14:33] LABS: BV Int Neg Control Negative (Negative); BV Int Pos Control Positive (Positive)
== END 2022-09-07 13:02 | disposition home or self-care (01) ==
LOC: HO.LAB 13:01
PROVIDERS: Visit Provider Internal Medicine
DX: N89.8 Other specified noninflammatory disorders of vagina (principal)
CPT/HCPCS: 87480; 87510; 87660

== ENCOUNTER 2022-10-11 13:53 | Outpatient (REF) | payer MEDICARE, OTHER, SELFPAY ==
--- NOTE | ~2022-10-11 | MM_ITS ---
EXAMINATION: MM SCREENING DIGITAL BREAST TOMOSYNTHESIS, BILATERAL CLINICAL INFORMATION: Screening. Asymptomatic. Right lumpectomy for breast cancer 1994 and second right lumpectomy for ADH, 2000. History lymphoma. Due for yearly. COMPARISON: Mammography: 10/02/2021, 09/28/2020, 08/27/2019, 08/22/2018; CTA chest 09/10/2020. TECHNIQUE: Digital breast tomosynthesis is performed in both the craniocaudal and mediolateral oblique views along with computer-aided detection (CAD). Synthesized 2D images are generated from the tomosynthesis. FINDINGS: There are scattered areas of fibroglandular density (ACR BI-RADS breast composition Category b). Parenchymal pattern is similar to prior studies and there is no developing density or interval architectural abnormality or abnormal calcifications. Scattered minor asymmetries are stable. There are postsurgical changes on the right with stable scarring and surgical clip. No significant changes from prior studies. MM/MM tomosynthesis screening BI IMPRESSION: No mammographic evidence of malignancy. ASSESSMENT: BI-RADS 2: Benign RECOMMENDATION: Routine annual mammography screening. This patient's information was entered into a reminder system with a target due date for their next mammogram.
== END 2022-10-11 13:54 | disposition home or self-care (01) ==
LOC: HO.MAMMO 13:53
PROVIDERS: PCP Internal Medicine; Visit Provider Internal Medicine
DX: Z12.31 Encounter for screening mammogram for malignant neoplasm of breast (principal)
CPT/HCPCS: 77063; 77067

== ENCOUNTER 2022-11-05 13:00 | Outpatient (RCR) | payer MEDICARE, OTHER, SELFPAY ==
--- NOTE | 2022-09-18 15:01 | MHC.PT.EP ---
[facility] [place] Office [place] Office [place] Office [address] Kelechi Parada [address] [phone] F: [phone] F: [phone] F: [phone] F: [phone] Physical Therapy Plan of Care Date of Evaluation: Date of Surgery: n/a Diagnosis: abnormalities of gait and mobility Assessment: Patient is a 76 year old female presenting to PT with complaints of abnormalities of gait and balance. Pt reports onset of pain began about 1 year ago due to after an ankle fx and after being diagnosed with multiple myeloma. She presents today with impairments in gait mechanics, LE strength, balance, TUG score, DGI score. Pt's current occupation is retired, with baseline physical activities including ADLs, ambulating, stair negotiation. Pt expresses terminal carman goal of improving LE strength, and is motivated to work towards this in PT. Clinical presentation today is most consistent with signs and sx associated with abnormalities of gait and balance and pt will benefit from skilled PT to address the following problems and impairments noted upon evaluation: gait mechanics, LE strength, balance, TUG score, DGI score. These problems limit the patient with the following functional activities: ADLs, ambulating, stair negotiation. The prescribed treatment plan of care is medically necessary. Co-morbidities of hx breast cancer, HTN, multiple myeloma, osteoporosis were identified and taken into considerations of plan of care. Pt was educated on HEP, role of PT, prognosis, POC. Frequency and Duration: The patient will be seen 2 x week x 5 weeks Short Term Goals: Pt will demonstrate improved LE strength by 1/3 grade in 3 weeks. 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 Pt will demonstrate ability to perform STS from regular chair height without UE support in 3 weeks. Custodial Goals: Pt will demonstrate improved LEFI score by 9 points for improved functional mobility in 5 weeks. Pt will demonstrate improved TUG score to <12 sec in 5 weeks for decreased risk of falls. Pt will demonstrate ability to improved DGI score by 3 points in 5 weeks for decreased risk of falls. Treatment Plan: Modalities to reduce pain, spasms and effusion. Manual therapy to restore motion and function. Therapeutic exercise to improve strength and flexibility. Neuromuscular re-education for posture and balance. Therapeutic activities to return to functional activities of daily living. Electronically signed by: Angeline Elliott, PT, DPT, ATC Please sign and return to therapist. Thank you for your referral.
--- NOTE | 2022-11-05 13:57 | MHC.PT.DC ---
[facility] [place] Office [place] Office [place] Office [address] Kelechi Parada [address] [phone] F: [phone] F: [phone] F: [phone] F: [phone] Physical Therapy Discharge Report Diagnosis: abnormalities of gait and mobility Date of Surgery: n/a Date of Evaluation: 09/18/22 Date of Discharge: 11/05/22 Treatments to Date: 12 Cancellations to Date: 5 No Shows to Date: 0 Discharge Status: Achieved Goals Improved Function Independent with HEP Discharge Summary: 11/05/2022: Pt has made very good progress since start of care. She is demonstrating improved LE strength, balance, and overall confidence at this time. She has met nearly all of her functional goals as well. Compared to her start of care her fall risk has decreased significantly. Discussed recommendation to [facility] classes to bridge the end of PT. Pt understanding and agreeing with this recommendation. She plans to attend [facility] class [facility] the [facility]. At this point max benefits of PT have been provided and skilled PT is no longer indicated at this time. Pt in agreement with d/c today and all questions answered. Electronically signed by: Angeline Elliott, PT, DPT, ATC Please sign and return to therapist. Thank you for your referral.
== END 2022-11-05 13:57 | disposition home or self-care (01) ==
LOC: HO.PTCHIC 13:00
PROVIDERS: PCP Internal Medicine; Visit Provider Internal Medicine
DX: R26.89 Other abnormalities of gait and mobility (principal)
CPT/HCPCS: 97110; 97112; 97162; 97530

== ENCOUNTER 2022-12-20 13:48 | Outpatient (REF) | payer MEDICARE, OTHER, SELFPAY ==
--- NOTE | ~2022-12-20 | XR_ITS ---
EXAMINATION: XR CHEST CLINICAL INFORMATION: Cough. COMPARISON: CTA chest 09/10/2020 TECHNIQUE: 2 views of the chest were obtained. FINDINGS: The lungs are well-expanded and clear of acute process. The heart size and pulmonary vascularity is normal. There are old T11 and T12 fractures with cement augmentation. The T11 fracture is new since CTA chest 09/28/2020 XR/XR chest 2V IMPRESSION: Unremarkable chest examination.
== END 2022-12-20 13:49 | disposition home or self-care (01) ==
LOC: HO.HMGCX 13:48
PROVIDERS: PCP Internal Medicine; Visit Provider Internal Medicine
DX: R05.9 Cough, unspecified (principal)
CPT/HCPCS: 71046

== ENCOUNTER 2022-12-21 10:12 | Outpatient (REF) | payer MEDICARE, OTHER, SELFPAY ==
[2022-12-21 11:17] LABS: MANUAL DIFF FLAG NO
[2022-12-21 11:55] LABS: Basophils Percent Auto 0.7 % (0-2); Eosinophils Absolute Auto 0.1 X10*3/uL (0.0-0.4); Eosinophils Percent Auto 2.6 % (0-4); Hematocrit 34.5 % (37.0-47.0); Hemoglobin 10.7 g/dl (12.0-16.0); Imm Gran Abs Auto 0.01 X10*3/uL (0.00-0.03); Imm Gran Pct Auto 0.4 % (0.0-0.4); Lymphocytes Absolute Auto 1.1 X10*3/uL (1.2-4.9); Lymphocytes Percent Auto 38.6 % (20-40); Mean Corpuscular Hemoglobin 25.6 pg (27.0-33.0); Mean Corpuscular Volume 82.5 fL (80.0-98.0); Mean Platelet Volume 10.7 fL (9.4-12.3); Monocytes Absolute Auto 0.3 X10*3/uL (0.1-1.2); Neutrophils Absolute Auto 1.3 x10*3/uL (2.0-8.3); Neutrophils Percent Auto 46.7 % (45-73); Platelet Count 268 X10*3/uL (160-400); Red Blood Count 4.18 X10*6/uL (4.20-5.50); Red Cell Distribution Width 17.3 % (11.0-16.0); White Blood Count 2.7 X10*3/uL (4.8-10.8)
[2022-12-21 12:19] LABS: Alanine Aminotransferase 14 U/L (0-31); Albumin Level 3.8 g/dL (3.5-5.0); Alkaline Phosphatase 62 U/L (39-117); Anion Gap 11 (12-20); Aspartate Amino Transferase 17 U/L (5-31); Bilirubin Total 0.3 mg/dL (0.0-1.0); Blood Urea Nitrogen 26 mg/dL (9-16); Calcium 9.3 mg/dL (8.4-10.2); Carbon Dioxide 32 mmol/L (22-29); Chloride 103 mmol/L (96-108); Cholesterol 318 mg/dL; Estimated Glomerular Filt Rate 35; Glucose Fasting 122 mg/dL (60-99); HDL Cholesterol 87 mg/dL; LDL Cholesterol Calculated 220 mg/dl; Potassium 4.4 mmol/L (3.3-5.1); Sodium 142 mmol/L (135-145); Triglycerides 58 mg/dL
== END 2022-12-21 10:13 | disposition home or self-care (01) ==
LOC: HO.HMGCLDS 10:12
PROVIDERS: PCP Internal Medicine; Visit Provider Internal Medicine
DX: C90.00 Multiple myeloma not having achieved remission (principal); F41.9 Anxiety disorder, unspecified; G50.0 Trigeminal neuralgia
CPT/HCPCS: 36415; 80053; 80061; 85025

== ENCOUNTER 2023-04-29 14:16 | Outpatient (REF) | payer MEDICARE, OTHER, SELFPAY ==
--- NOTE | ~2023-04-29 | XR_ITS ---
EXAMINATION: XR PELVIS CLINICAL INFORMATION: Pain COMPARISON: Previous pelvic MRI April [address] of the abdomen and pelvis July 2018 TECHNIQUE: AP view of the pelvis. FINDINGS: Bone alignment is normal. No fracture or dislocation is seen. Mild arthritis at both hip joints with joint space narrowing and osteophyte formation. I attenuation in the left side of the sacrum, question representing post augmentation changes/sacro plasty. Increased attenuation in the visualized L4 vertebral body likely representing postop patient/kyphoplasty change. Sacroiliac joints are normal. Mild degenerative changes of the pubic symphysis. Soft tissues. XR/XR pelvis 1-2V IMPRESSION: Mild arthritis at both hip joints. High attenuation in the visualized L4 vertebral body and left side of the sacrum likely representing post augmentation/kyphoplasty and sacroplasty changes.
== END 2023-04-29 14:17 | disposition home or self-care (01) ==
LOC: HO.HOSX 14:16
PROVIDERS: PCP Internal Medicine; Visit Provider Orthopaedic Surgery
DX: M17.11 Unilateral primary osteoarthritis, right knee (principal); M16.0 Bilateral primary osteoarthritis of hip
CPT/HCPCS: 20610; 72170; 99202; J1100

== ENCOUNTER 2023-04-29 14:16 | Outpatient (AMB) | payer MEDICARE, OTHER, SELFPAY ==
--- NOTE | 2023-04-29 14:43 | A.OFFVIS_ITS ---
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 Pain is felt in the groin area. Pain is increased with prolonged walking and twisting motions. She is taking tylenol for her pain which does help. she has had no previous treatments of the hip. 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 She complains of pain in her groin with weight-bearing activity, worse with standing from a seated position or twisting activities. She says she has some pain when she begins walking but this resolves after taking a few steps. She feels limited in her ADLs and finds this frustrating. She says her pain has been present for ~5 weeks now She lives alone and is concerned if she could recover without aid. She spends alot of her free time gardening & bending over, which she finds painful. She also complains of right knee pain which is worse with activities. [facility] Medical History (Updated 04/29/23 @ 15:09 by Terell Avalos) Ankle fracture, left Anxiety Cataract GERD (gastroesophageal reflux disease) Hx of breast cancer Hypertension Insomnia Multiple myeloma Post-nasal drip RLS (restless legs syndrome) Trigeminal neuralgia Surgical History H/O left knee surgery History of colonoscopy Status post ORIF of fracture of ankle Family History Other Mental health disorder Social History Household Members Other:: , 2 sons, Housing: House Are you a primary career coordinator to a significant other at home: No Do you presently have visiting nurse or other home services: No Patient Tobacco Use Status: Former Tobacco user Quit Date: Tobacco use type: Cigarette Years Smoked: 3 years e-Cigarette/Vaping Use: Never Used service: No Current occupational status: retired Cognitive needs: No Hearing needs: No Vision needs: Yes Review of Systems Const All systems reviewed & are unremarkable except as noted in HPI and below Physical Exam Vital Signs: BMI result Body Mass Index 27.5 Const General: no acute distress, alert and awake Orientation/consciousness: patient oriented x3 HEENT Head: Yes normocephalic and Yes atraumatic Eyes EOM: EOMs intact bilaterally Resp Effort & Inspection: normal respiratory effort and able to speak in complete sentences Cardio Jugular venous distension: no JVD Skin General skin exam: turgor normal Rashes: no rashes Neuro General: patient oriented x3 Extrem Other: Bilateral Hips: + Stinchfield and + impingement R>L Psych Appearance: grossly normal Affect: normal affect Attitude: cooperative Results Reviewed Results Reviewed: 04/29/23 15:02 BUPivacaine MPF 0.25 % [Sensorcaine-MPF 0.25% 10 ML] 10 ml .ROUTE .STK-MED ONE Lidocaine HCl 2 % MPF [Xylocaine 2 % MPF] 5 ml .ROUTE .STK-MED ONE dexAMETHasone sod phosphate [Decadron] 4 mg .ROUTE .STK-MED ONE I personally reviewed relevant MR images Impression: 1. Advanced right hip chondral loss/degenerative change with associated small to moderate joint effusion, synovitis, and mild subchondral edema. 2. Moderate chondral thinning/degenerative change in left hip 3. Mildly heterogeneous marrow signal without evidence of marrow infiltration or destructive osseous lesion. 4. Sclerosis in the left iliac bone with interval resolution of previously seen surrounding edema. This likely reflects sequela of remote sacral insufficiency fracture Assessment & Plan Assessment & Plan (1) Osteoarthritis of right hip: Code(s): M16.11 - Unilateral primary osteoarthritis, right hip Plan: This is a 77 year old woman with moderate-severe bilateral hip OA. She has pain localized to her groin with weight-bearing activities, worse with standing from a seated position or twisting activities. She denies any prior treatment, feels limited in her ADLs and that her QOL is diminished. I discussed her diagnosis and treatment options. I think she would may benefit from a OUSMANE in the future, but she has only had pain for ~5 weeks at this time and it is too early to consider surgery. I recommend activityy modification, PT was ordered and prn NSAIDs. She will follow up in 2 months. (2) Osteoarthritis of left hip: Code(s): M16.12 - Unilateral primary osteoarthritis, left hip (3) Osteoarthritis of right knee: Code(s): M17.11 - Unilateral primary osteoarthritis, right knee Plan: I injected her right knee today, which she tolerated well. She can follow up prn Plan Scribed for Maximino Cook MD by Terell Avalos, medical office receptionist assistant, on 04/29/23 at 2:55 PM, EST. Orders: Orders XR pelvis 1-2V 04/29/23 M25.559 - Pain in unspecified hip PT Evaluation and Treatment 04/29/23 M16.11 - Unilateral primary osteoarthritis, right hip, M16.12 - Unilateral primary osteoarthritis, left hip Coding Level of Care Code New Pt Level 4 (21906) Diagnoses Osteoarthritis of right hip M16.11 Osteoarthritis of left hip M16.12 Osteoarthritis of right knee M17.11
[2023-04-29 14:47] VITALS: BMI 27.5
== END 2023-04-29 15:16 | disposition home or self-care (01) ==
PROVIDERS: PCP Internal Medicine; Visit Provider Orthopaedic Surgery
DX: M16.0 Bilateral primary osteoarthritis of hip (principal); M17.11 Unilateral primary osteoarthritis, right knee
CPT/HCPCS: 20610; 99204

== ENCOUNTER 2023-06-17 13:59 | Outpatient (AMB) | payer MEDICARE, OTHER, SELFPAY ==
--- NOTE | 2023-06-17 15:54 | MHC.OFFWIV ---
Intake Vital Signs 06/17/23 16:05 Weight 153 lb 8 oz BP 132/80 Blood Pressure Location Lt brachial Position Sitting Pulse 64 Pulse Source Pulse Oximeter Temp 98.2 F Temp Source Oral Pulse Oximetry (%) 96 Oxygen Delivery Method Room Air Intake Visit Reasons: EP Sinus Infection [phone] Intake Note: Patient here for possible sinus infection which has been going on for about 2 days. Patient Tobacco Use Status: Former Tobacco user Quit Date: Allergies nitroglycerin [NITROGLYCERIN] Adverse Reaction (Severe, Verified 06/17/23 16:29) HYPOTENSION Medication List - Last Reconciled 06/17/23 by Jose Maxwell MD acyclovir 400 mg PO BID ascorbic acid (vitamin C) ER 1,000 mg PO .daily aspirin (Adult Low Dose Aspirin) 81 mg PO DAILY calcium acetate calcium 1200 mg vitamin d3 1000 units docusate sodium (Stool Softener) 250 mg PO BID duloxetine 60 mg PO DAILY flu vac 2020 [id number](PF) 60 mcg (15 mcg x 4)/0.5 mL mL IM fluticasone propionate 50 mcg/actuation 1 spray intranasal DAILY gabapentin One capsule in a.m., 1 capsule at lunch, 2 capsules q.h.s. orally; ixazomib (Ninlaro) mg PO lidocaine HCl 2% (Lidocaine Viscous) 15 mL PO Q4H PRN lisinopril 5 mg PO DAILY melatonin 3 mg PO BEDTIME PRN omega-3 fatty acids 1,000 mg PO DAILY pantoprazole 40 mg PO BID polyethylene glycol 3350 17 grams PO DAILY PRN [probiotics 100mg orally; ] ropinirole 2 mg PO BEDTIME trazodone 1-2 tabl orally bedtime; vitamin E 400 units PO DAILY Do you need a note to return to daycare/school/sports/work: No HPI EP Sinus Infection [phone] HPI Details Patient presents for a sick visit. Reporting symptoms of sinus congestion, sore throat and difficulty swallowing. Low-grade fever. No family member is sick. No recent travel. Patient reports symptoms of malaise and fatigue. [facility] Medical History (Updated 04/29/23 @ 15:09 by Terell Avalos) Cataract RLS (restless legs syndrome) Insomnia Anxiety Hx of breast cancer Trigeminal neuralgia Post-nasal drip Multiple myeloma Ankle fracture, left GERD (gastroesophageal reflux disease) Hypertension Surgical History History of colonoscopy H/O left knee surgery Status post ORIF of fracture of ankle Family History Other Mental health disorder Social History Household Members Other:: , 2 sons, Housing: House Are you a primary healthcare corporate account director to a significant other at home: No Do you presently have visiting nurse or other home services: No Patient Tobacco Use Status: Former Tobacco user Quit Date: Tobacco use type: Cigarette Years Smoked: 3 years e-Cigarette/Vaping Use: Never Used service: No Current occupational status: retired Cognitive needs: No Hearing needs: No Vision needs: Yes Physical Exam Vital Signs: Last Vital Signs Temp 98.2 F 06/17/23 16:05 Pulse 64 06/17/23 16:05 BP 132/80 06/17/23 16:05 Pulse Ox 96 06/17/23 16:05 Oxygen Delivery Method Room Air 06/17/23 16:05 Const General: cooperative and healthy appearing Nutritional Appearance: well nourished Orientation/consciousness: patient oriented x3 Limitations: no limitations HEENT Head: Yes normal to inspection Eyes General: appearance normal, both eyes and all related structures Neck Neck: Yes normal visual inspection Chest Chest palpation & inspection: normal palpation of entire chest wall Resp Effort & Inspection: normal respiratory effort Neuro General: patient oriented x3 Assessment & Plan Assessment & Plan (1) Upper respiratory tract infection: Code(s): J06.9 - Acute upper respiratory infection, unspecified Plan: Antibiotics ordered. Increase fluid intake. Tylenol for aches and pains. If symptoms worsen, follow-up here for a recheck. Coding Level of Care Code Est Pt Level 3 (76623) Diagnoses Upper respiratory tract infection J06.9
[2023-06-17 16:05] VITALS: BP 132/80; PULSE 64; TEMP 36.8; O2SAT 96
== END 2023-06-17 16:28 | disposition home or self-care (01) ==
PROVIDERS: PCP Internal Medicine; Visit Provider Internal Medicine
DX: J06.9 Acute upper respiratory infection, unspecified (principal)
CPT/HCPCS: 99213

== ENCOUNTER 2023-06-28 13:00 | Outpatient (RCR) | payer MEDICARE, OTHER, SELFPAY ==
--- NOTE | 2023-05-22 15:11 | MHC.PT.EP ---
[facility] [place] Office [place] Office [place] Office [address] Kelechi Parada [address] [phone] F: [phone] F: [phone] F: [phone] F: [phone] Physical Therapy Plan of Care Date of Evaluation: 05/22/23 Date of Surgery: n/a Diagnosis: OA of B hips Assessment: Patient is a 77 year old female presenting to PT with complaints of pain in her B hips. Pt reports onset of pain began about 2 months ago due to insidious onset. She presents today with impairments in pain, ROM, hip strength, gait mechanics. Pt's current occupation is retired, with baseline physical activities including transfers, ambulating, stair negotiation, gardening, ADLs. Pt expresses fdc goal of reducing pain, and is motivated to work towards this in PT. Clinical presentation today is most consistent with signs and sx associated with B hip OA and pt will benefit from skilled PT 2 week x 4 weeks to address the following problems and impairments noted upon evaluation: pain, ROM, hip strength, gait mechanics. These problems limit the patient with the following functional activities: transfers, ambulating, stair negotiation, gardening, ADLs. The prescribed treatment plan of care is medically necessary. Co-morbidities of hx breast cancer, HTN, multiple myeloma, osteoporosis were identified and taken into considerations of plan of care. Pt was educated on HEP, role of PT, prognosis, POC. Frequency and Duration: The patient will be seen 2 x week x 4 weeks Short Term Goals: Pt will demonstrate improved hip MMT strength by 1/3 grade in 2 weeks for improved lumbopelvic stability. Pt will demonstrate improved pain at rest to <4/10 in 2 weeks for improved QOL. Residential Goals: Pt will demonstrate improved LEFI score by 9 points in 4 weeks for improved functional mobility. Pt will demonstrate ability to ambulate with min to no pain in 4 weeks for improved access to the community. Pt will demonstrate ability to transfer in and out of the car with minimal pain in 4 weeks for improved tolerance to transfers. Pt will demonstrate ability to negotiate stairs with min to no pain in 4 weeks for improved access to her home. Treatment Plan: Modalities to reduce pain, spasms and effusion. Manual therapy to restore motion and function. Therapeutic exercise to improve strength and flexibility. Neuromuscular re-education for posture and balance. Therapeutic activities to return to functional activities of daily living. Electronically signed by: Angeline Elliott, PT, DPT, ATC Please sign and return to therapist. Thank you for your referral.
--- NOTE | 2023-06-28 13:49 | MHC.PT.DC ---
[facility] [place] Office [place] Office [place] Office [address] Kelechi Parada [address] [phone] F: [phone] F: [phone] F: [phone] F: [phone] Physical Therapy Discharge Report Diagnosis: OA of B hips Date of Surgery: n/a Date of Evaluation: 05/22/23 Date of Discharge: 06/28/23 Treatments to Date: 9 Cancellations to Date: 2 No Shows to Date: 0 Discharge Status: Recommend MD Follow-up Discharge Summary: 06/28/2023: Pt has made minimal progress at this time since start of care with her hip pain. She is continuing to experience moderate to severe pain with things like walking, stair negotiation, transfers, and ADLs. She has been told previously that she needs a hip replacement and has an appointment to follow up with ortho regarding this on Saturday. Due to her lack of progress with skilled PT it is no longer appropriate to continue and therefore will be d/c. She is in agreement with this plan and will attend her appointment on Saturday. Electronically signed by: Angeline Elliott, PT, DPT, ATC Please sign and return to therapist. Thank you for your referral.
== END 2023-06-28 13:49 | disposition home or self-care (01) ==
LOC: HO.PTCHIC 13:00
PROVIDERS: PCP Internal Medicine; Visit Provider Orthopaedic Surgery
DX: M16.11 Unilateral primary osteoarthritis, right hip (principal); M16.12 Unilateral primary osteoarthritis, left hip
CPT/HCPCS: 97110; 97112; 97162

== ENCOUNTER 2023-07-01 09:03 | Outpatient (AMB) | payer MEDICARE, OTHER, SELFPAY ==
--- NOTE | 2023-07-01 09:26 | MHC.OFFVIS ---
Intake Vital Signs 07/01/23 09:27 Height 5 ft 5 in Weight 165 lb BMI 27.5 Intake Visit Reasons: ov-B/L hip pain Intake Note: Lillian is a 77 year old female who presents today for a follow up of her bilateral hip pain, Right side worse than left. At her last visit OUSMANE was discussed however symptoms have only been present for a short period of time. Advised activity modification and PRN NSAID. Pateint reports that her symptoms have gotten worse, she feels a burning pain in the groin area and radiates down the inner thigh Allergies nitroglycerin [NITROGLYCERIN] Adverse Reaction (Severe, Verified 07/01/23 09:27) HYPOTENSION HPI ov-B/L hip pain HPI Details Lillian is a 77 year old woman who returns with complaints of bilateral hip pain, R>L. She complains of pain in her groin with weight-bearing activity, worse with standing from a seated position or twisting activities. She says her pain is now worse than before and she feels a burning sensation that radiates from her right hip down into her knee. She says prolonged standing or climbing into/out of a car is painful for her, but she denies any pain when walking over flat ground. She says her gait is off in the last few weeks and she walks with a limp. She denies using a cane. She feels limited in her ADLs and finds this frustrating. She was sent for PT at her last appointment, and told to take NSAIDs prn. She would like to discuss alternative treatment options. She also complains of left knee pain, which began in the last few weeks. She is unsure if this is related to how she is walking but she would like to discuss an injection today. She lives alone and is concerned if she could recover without aid. She spends alot of her free time gardening & bending over, which she finds painful. She has right knee OA, which was injected on 04/29/23. 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 [facility] Medical History Cataract RLS (restless legs syndrome) Insomnia Anxiety Hx of breast cancer Trigeminal neuralgia Post-nasal drip Multiple myeloma Ankle fracture, left GERD (gastroesophageal reflux disease) Hypertension Surgical History History of colonoscopy H/O left knee surgery Status post ORIF of fracture of ankle Family History Other Mental health disorder Social History Household Members Other:: , 2 sons, Housing: House Are you a primary wound care coordinator to a significant other at home: No Do you presently have visiting nurse or other home services: No Patient Tobacco Use Status: Former Tobacco user Quit Date: Tobacco use type: Cigarette Years Smoked: 3 years e-Cigarette/Vaping Use: Never Used service: No Current occupational status: retired Cognitive needs: No Hearing needs: No Vision needs: Yes Review of Systems Const All systems reviewed & are unremarkable except as noted in HPI and below Physical Exam Vital Signs: BMI result Body Mass Index 27.5 Const General: no acute distress, alert and awake Orientation/consciousness: patient oriented x3 HEENT Head: Yes normocephalic and Yes atraumatic Eyes EOM: EOMs intact bilaterally Resp Effort & Inspection: normal respiratory effort and able to speak in complete sentences Cardio Jugular venous distension: no JVD Skin General skin exam: turgor normal Rashes: no rashes Neuro General: patient oriented x3 Extrem Other: Right Hip: + impingement Limited AB antalgic gait Psych Appearance: grossly normal Affect: normal affect Attitude: cooperative Office Procedures Joint Injection/Drain Joint Injection/Drain Details: Injected 1 mL of Decadron and 3 mL 1% lidocaine and 3 mL of 0.25% Marcaine. Site was prepped using aseptic technique. Patient tolerated the procedure well. Primary Site: left knee Approach Used: anterolateral Coding 97186 - Large joint Procedure code (CPT) selection complete Results Reviewed Results Reviewed: 07/01/23 09:42 BUPivacaine MPF 0.25 % [Sensorcaine-MPF 0.25% 10 ML] 10 ml .ROUTE .STK-MED ONE Lidocaine HCl 2 % MPF [Xylocaine 2 % MPF] 5 ml .ROUTE .STK-MED ONE dexAMETHasone sod phosphate [Decadron] 4 mg .ROUTE .STK-MED ONE I personally reviewed relevant MR images Impression: 1. Advanced right hip chondral loss/degenerative change with associated small to moderate joint effusion, synovitis, and mild subchondral edema. 2. Moderate chondral thinning/degenerative change in left hip 3. Mildly heterogeneous marrow signal without evidence of marrow infiltration or destructive osseous lesion. 4. Sclerosis in the left iliac bone with interval resolution of previously seen surrounding edema. This likely reflects sequela of remote sacral insufficiency fracture Assessment & Plan Assessment & Plan (1) Osteoarthritis of right hip: Code(s): M16.11 - Unilateral primary osteoarthritis, right hip Plan: This is a 77 year old woman with moderate-severe bilateral hip OA & pain, R>L. She has pain localized to her groin with weight-bearing activities, worse with standing from a seated position or twisting & bending activities. She ambulates with antalgia and denies using a cane. She has completed PT but she continues to feel limited in her ADLs and that her QOL is diminished. I discussed her diagnosis and treatment options. I recommend a right OUSMANE. I discussed the risks, benefits, and alternatives including, but not limited to, the risk of pain, infection, stiffness, need for further surgery as well as potential medical complications such as blood clots, pulmonary embolism and cardiac complications. I discussed the recovery timeline and process as well as the importance of PT. Lillian is a good candidate for this surgery, and she wishes to proceed with this decision. She will speak with Анна to schedule this procedure. She has Leukemia and is taking Ninlaro for this. (2) Osteoarthritis of left knee: Code(s): M17.12 - Unilateral primary osteoarthritis, left knee Plan: Pain with activity, I injected her knee today, which she tolerated well. (3) Multiple myeloma: Comment: [facility], dxd 2020, in remission 01/28 Code(s): C90.00 - Multiple myeloma not having achieved remission (4) Osteoarthritis of left hip: Code(s): M16.12 - Unilateral primary osteoarthritis, left hip Plan Scribed for Maximino Cook MD by Terell Avalos, medical terminologist, on 07/01/23 at 9:35 AM, EST. Coding Level of Care Code Est Pt Level 4 (34477) Diagnoses Osteoarthritis of right hip M16.11 Osteoarthritis of left knee M17.12 Multiple myeloma C90.00 Osteoarthritis of left hip M16.12 CPT Codes Coding - 73790 Large joint: 91596 - Large joint ([id number])
[2023-07-01 09:27] VITALS: BMI 27.5
== END 2023-07-01 10:01 | disposition home or self-care (01) ==
PROVIDERS: PCP Internal Medicine; Visit Provider Orthopaedic Surgery
DX: M16.0 Bilateral primary osteoarthritis of hip (principal); M17.12 Unilateral primary osteoarthritis, left knee; C90.00 Multiple myeloma not having achieved remission
CPT/HCPCS: 20610; 99214

== ENCOUNTER → 2023-07-01 09:03 | Outpatient (BNVA) | payer MEDICARE, OTHER, SELFPAY | PROVIDERS: PCP Internal Medicine; Visit Provider Orthopaedic Surgery | DX: M16.0 Bilateral primary osteoarthritis of hip (principal); M17.12 Unilateral primary osteoarthritis, left knee; C90.00 Multiple myeloma not having achieved remission | CPT/HCPCS: 20610; 99212; J1100 ==

== ENCOUNTER 2023-07-16 12:30 | Outpatient (AMB) | payer MEDICARE, OTHER, SELFPAY ==
[2023-07-16 14:15] VITALS: BP 140/80; PULSE 79; TEMP 36.9; O2SAT 96; BMI 26.0
--- NOTE | 2023-07-16 14:15 | MHC.OFFWIV ---
Intake Vital Signs 07/16/23 14:15 Height 5 ft 5 in Weight 156 lb BMI 26.0 BP 140/80 H Blood Pressure Location Rt brachial Position Sitting Pulse 79 Pulse Source Pulse Oximeter Temp 98.5 F Temp Source Temporal Artery Scan Pulse Oximetry (%) 96 Oxygen Delivery Method Room Air Intake Visit Reasons: EST/sinus infection?[phone] Intake Note: pt is here for c/o possible sinus infection Patient Tobacco Use Status: Former Tobacco user Quit Date: Allergies nitroglycerin [NITROGLYCERIN] Adverse Reaction (Severe, Verified 07/16/23 14:16) HYPOTENSION Do you need a note to return to daycare/school/sports/work: Yes HPI HPI Comments History of Present Illness Details Patient is a 77-year-old female in today for a sick visit. Patient reports symptoms of cough, sore throat, sinus pressure,Ear congestion and headache x4 days. Patient states she took a COVID test at home and it was negative. States that she lives alone has not been around anyone else is sick. Reports getting some relief with Tylenol. Denies dizziness, nausea, vomiting. patient's head is normocephalic, patient's left TM is not visible due to impacted cerumen, right TMs visible effusion and erythema present. Patient's sinuses tender, clear nasal discharge. No discharge of the eye. Pharynx is cobblestoned . Trachea is midline. No lymphadenopathy. Uvulva midline. Heart and lung sounds normal. Patient likely has otitis media of the right ear. Patient will be given Augmentin to be taken for the entire course over the next 10 days. patient is unlikely to have peritonsillar abscess, epiglottitis, mastoiditis, TM rupture, or threat to airway. Patient has been instructed they can also use [id number] Tylenol for Headache or subjective fever. Patient also educated that he can use symptomatic relief like cough drops or tea for sore throat. Patient educated on the dangers of NSAID use. [facility] Medical History (Updated 07/16/23 @ 14:59 by SOFI Platt) Otitis media of right ear Cataract RLS (restless legs syndrome) Insomnia Anxiety Hx of breast cancer Trigeminal neuralgia Post-nasal drip Multiple myeloma Ankle fracture, left GERD (gastroesophageal reflux disease) Hypertension Surgical History History of colonoscopy H/O left knee surgery Status post ORIF of fracture of ankle Family History Other Mental health disorder Social History Household Members Other:: , 2 sons, Housing: House Are you a primary care navigator to a significant other at home: No Do you presently have visiting nurse or other home services: No Patient Tobacco Use Status: Former Tobacco user Quit Date: Tobacco use type: Cigarette Years Smoked: 3 years e-Cigarette/Vaping Use: Never Used service: No Current occupational status: retired Cognitive needs: No Hearing needs: No Vision needs: Yes Review of Systems Const All systems reviewed & are unremarkable except as noted in HPI and below Reports headache(s) Eyes Denies blurry vision and Denies change in vision ENT Denies dizziness, Reports otalgia, Reports headache(s), Denies hearing loss, Denies nose pain, Reports sinus pain, Reports sinus pressure and Reports sore throat Card Denies chest pain and Denies dyspnea Resp Reports cough and Denies dyspnea Neuro Denies dizziness and Reports headache(s) Physical Exam Vital Signs: Last Vital Signs Temp 98.5 F 07/16/23 14:15 Pulse 79 07/16/23 14:15 BP 140/80 H 07/16/23 14:15 Pulse Ox 96 07/16/23 14:15 Oxygen Delivery Method Room Air 07/16/23 14:15 BMI result Body Mass Index 26.0 Vital signs reviewed and stable. Const General: cooperative and no acute distress Orientation/consciousness: patient oriented x3 Limitations: no limitations HEENT Head: Yes normal to inspection and Yes normocephalic Ears: TM abnormal ( right TM) erythematous and unable to visualize TM on the right ( cerumen impaction) Face and sinus: Yes sinus tenderness Throat: Yes cobblestoning Neck Neck: Yes full ROM and Yes no lymphadenopathy Lymphatic: no lymphadenopathy noted Resp Effort & Inspection: normal respiratory effort Auscultation: clear to auscultation bilaterally Neuro General: patient oriented x3 Assessment & Plan Assessment & Plan (1) Otitis media of right ear: Code(s): H66.91 - Otitis media, unspecified, right ear Qualifiers: Chronicity: acute Recurrence: not specified as recurrent Orders: Orders SARS-CoV2/FLU/RSV Today J06.9 - Acute upper respiratory infection, unspecified Medications: New amoxicillin-pot clavulanate 875-125 mg 1 tab PO Q12H 20 tabs 0RF Coding Level of Care Code Est Pt Level 3 (64097) Diagnoses Otitis media of right ear H66.91 Chronicity: acute Recurrence: not specified as recurrent Time Spent (min) 20
== END 2023-07-16 14:53 | disposition home or self-care (01) ==
PROVIDERS: PCP Internal Medicine; Visit Provider Nurse Practitioner Primary Care
DX: H66.91 Otitis media, unspecified, right ear (principal)
CPT/HCPCS: 99213

== ENCOUNTER 2023-07-16 14:45 | Outpatient (REF) | payer MEDICARE, OTHER, SELFPAY ==
[2023-07-16 17:57] LABS: Influenza A PCR NEGATIVE (Negative); Influenza B PCR NEGATIVE (Negative); Resp Syncy Virus RNA Qual PCR NEGATIVE (Negative); SARS COV2 PCR INHOUSE NEGATIVE (Negative)
== END 2023-07-16 14:46 | disposition home or self-care (01) ==
LOC: HO.LNP 14:45
PROVIDERS: Visit Provider Nurse Practitioner Primary Care
DX: Z11.52 Encounter for screening for COVID-19 (principal); J06.9 Acute upper respiratory infection, unspecified
CPT/HCPCS: 0241U

== ENCOUNTER 2023-07-22 12:43 | Outpatient (AMB) | payer MEDICARE, OTHER, SELFPAY ==
[2023-07-22 12:57] VITALS: BP 130/82; PULSE 64; O2SAT 100; BMI 25.5
--- NOTE | 2023-07-22 12:57 | MHC.PC.OV ---
Vital Signs 07/22/23 12:57 Height 5 ft 5 in Weight 153 lb BMI 25.5 BP 130/82 Blood Pressure Location Lt brachial Position Sitting Pulse 64 Pulse Source Pulse Oximeter Pulse Oximetry (%) 100 Oxygen Delivery Method Room Air Intake Visit Reasons: Ear Pain Intake Note: Pt is here today c/o bilateral ear pain and nasal congestion Allergies nitroglycerin [NITROGLYCERIN] Adverse Reaction (Severe, Verified 07/22/23 12:58) HYPOTENSION Medication List - Last Reconciled 07/22/23 by Chen Pop MD acyclovir 400 mg PO BID amoxicillin-pot clavulanate 875-125 mg 1 tab PO Q12H ascorbic acid (vitamin C) ER 1,000 mg PO .daily aspirin (Adult Low Dose Aspirin) 81 mg PO DAILY calcium acetate calcium 1200 mg vitamin d3 1000 units docusate sodium (Stool Softener) 250 mg PO BID duloxetine 60 mg PO DAILY gabapentin One capsule in a.m., 1 capsule at lunch, 2 capsules q.h.s. orally; ixazomib (Ninlaro) mg PO lidocaine HCl 2% (Lidocaine Viscous) 15 mL PO Q4H PRN lisinopril 5 mg PO DAILY melatonin 3 mg PO BEDTIME PRN pantoprazole 40 mg PO BID polyethylene glycol 3350 17 grams PO DAILY PRN [probiotics 100mg orally; ] ropinirole 2 mg PO BEDTIME trazodone 1-2 tabl orally bedtime; vitamin E 400 units PO DAILY Tobacco use date assessed: 07/22/23 Fall risk assessment: No Falls in past year Last assessed Fall Risk: 07/22/23 Dental Screening Dental Screen Date: 07/22/23 Did you have a dental visit in the last 12 months?: Yes Did you have a dental problem in the last 6 months where you did not have access to dental care?: No Was dental information given to patient?: Patient has dentist HPI Ear Pain HPI Details Pt c/o persistent right ear pain sore throat , HUERTA, chronic postnasal drip, feeling overly tired and having intermittent cough, but no fever for 1 month. Patient took a Z-Felix 3 weeks ago without significant relief. She started taking Augmentin 4 days ago without significant improvement. She used to take Flonase spray but ran out. [facility] Medical History (Updated 07/22/23 @ 13:16 by Chen Pop MD) Otitis media of right ear Cataract RLS (restless legs syndrome) Insomnia Anxiety Hx of breast cancer Trigeminal neuralgia Post-nasal drip Multiple myeloma Ankle fracture, left GERD (gastroesophageal reflux disease) Hypertension Surgical History History of colonoscopy H/O left knee surgery Status post ORIF of fracture of ankle Family History Other Mental health disorder Social History Household Members Other:: , 2 sons, Housing: House Are you a primary managed care specialist to a significant other at home: No Do you presently have visiting nurse or other home services: No Patient Tobacco Use Status: Former Tobacco user Quit Date: Tobacco use type: Cigarette Years Smoked: 3 years e-Cigarette/Vaping Use: Never Used service: No Current occupational status: retired Cognitive needs: No Hearing needs: No Vision needs: Yes Questionnaire Thrive Questionnaire Date Thrive assessed: 12/20/22 ROCK-7 AMB Questionnaire ROCK-7 Date ROCK - 7 assessed: 12/20/22 Source: Developed by Drs. Talha Steve, Halina Pena, Levar Earl and colleagues, with an educational ramón from [employer]. Review of Systems Const All systems reviewed & are unremarkable except as noted in HPI and below Reports no additional complaints Eyes Reports no additional complaints ENT Reports no additional complaints Card Reports no additional complaints GI Reports no additional complaints Reports no additional complaints Physical exam (Primary Care) Vital Signs: Last Vital Signs Pulse 64 07/22/23 12:57 BP 130/82 07/22/23 12:57 Pulse Ox 100 07/22/23 12:57 Oxygen Delivery Method Room Air 07/22/23 12:57 BMI result Body Mass Index 25.5 Tobacco/Smoking Status: Tobacco use Status Tobacco use date assessed 07/22/23 07/22/23 12:58 Patient Tobacco Use Status Former Tobacco user 07/22/23 12:58 Tobacco use type Cigarette 07/22/23 12:58 e-Cigarette/Vaping Use Never Used 07/22/23 12:58 Thrive Assessment: Date of Thrive Assessment Date Thrive assessed 12/20/22 07/22/23 12:58 Const General: no acute distress HENMT Head: Yes normal to inspection Ears: hearing grossly normal bilaterally, TM's normal bilaterally and external ear abnormal (Right ear canal erythema) General nose exam: Normal nasal mucous membranes and turbinates present Face and sinus: Yes normal facial exam Mouth: Normal oral and palatal mucosa present Throat: Yes postnasal drainage Neck Neck: Yes no lymphadenopathy and Yes supple Resp Effort & Inspection: normal respiratory effort Auscultation: clear to auscultation bilaterally Cardio Rhythm: regular rhythm Heart sounds: S1 normal heart sound present and S2 normal heart sound present Assessment and Plan Assessment & Plan (1) Otitis media of right ear: Code(s): H66.91 - Otitis media, unspecified, right ear Qualifiers: Chronicity: acute Recurrence: not specified as recurrent Plan: Continue Augmentin, add 20 mg of prednisone for 5 days, and Cipro ear drops, check sed rate CBC and comprehensive panel. Patient will restart Flonase nasal spray Orders: Orders Comprehensive Met. Panel Today H66.91 - Otitis media, unspecified, right ear, J32.9 - Chronic sinusitis, unspecified Complete Blood Count Auto Diff Today H66.91 - Otitis media, unspecified, right ear, J32.9 - Chronic sinusitis, unspecified Erythrocyte Sedimentation Rate Today H66.91 - Otitis media, unspecified, right ear, J32.9 - Chronic sinusitis, unspecified Medications: New prednisone 20 mg PO DAILY 5 tabs 0RF fluticasone propionate 50 mcg/actuation (Allergy Relief (fluticasone)) administer into each nostril 1 spray intranasal DAILY 16 grams 3RF ciprofloxacin-dexamethasone 0.3-0.1 % 4 drps otic (ears) BID 7.5 mL 0RF Coding Level of Care Code Est Pt Level 3 (30307) Diagnoses Otitis media of right ear H66.91 Chronicity: acute Recurrence: not specified as recurrent
== END 2023-07-22 13:27 | disposition home or self-care (01) ==
PROVIDERS: PCP Internal Medicine; Visit Provider Internal Medicine
DX: H66.91 Otitis media, unspecified, right ear (principal)
CPT/HCPCS: 99213

== ENCOUNTER 2023-07-22 13:19 | Outpatient (REF) | payer MEDICARE, OTHER, SELFPAY ==
[2023-07-22 16:08] LABS: MANUAL DIFF FLAG NO
[2023-07-22 16:23] LABS: Basophils Percent Auto 1.2 % (0-2); Eosinophils Absolute Auto 0.1 X10*3/uL (0.0-0.4); Eosinophils Percent Auto 2.5 % (0-4); Hemoglobin 14.2 g/dl (12.0-16.0); Imm Gran Abs Auto 0.01 X10*3/uL (0.00-0.03); Imm Gran Pct Auto 0.3 % (0.0-0.4); Lymphocytes Absolute Auto 1.2 X10*3/uL (1.2-4.9); Lymphocytes Percent Auto 36.7 % (20-40); Mean Corpuscular Hemoglobin 31.8 pg (27.0-33.0); Mean Corpuscular Volume 96.4 fL (80.0-98.0); Mean Platelet Volume 9.8 fL (9.4-12.3); Monocytes Absolute Auto 0.3 X10*3/uL (0.1-1.2); Monocytes Percent Auto 8.6 % (2-11); Neutrophils Absolute Auto 1.6 x10*3/uL (2.0-8.3); Neutrophils Percent Auto 50.7 % (45-73); Platelet Count 228 X10*3/uL (160-400); Red Blood Count 4.46 X10*6/uL (4.20-5.50); Red Cell Distribution Width 14.2 % (11.0-16.0); White Blood Count 3.2 X10*3/uL (4.8-10.8)
[2023-07-22 16:26] LABS: Alanine Aminotransferase 18 U/L (0-31); Albumin Level 3.9 g/dL (3.5-5.0); Alkaline Phosphatase 61 U/L (39-117); Anion Gap 13 (12-20); Aspartate Amino Transferase 20 U/L (5-31); Bilirubin Total 0.3 mg/dL (0.0-1.0); Blood Urea Nitrogen 13 mg/dL (9-16); Calcium 8.8 mg/dL (8.4-10.2); Carbon Dioxide 30 mmol/L (22-29); Chloride 101 mmol/L (96-108); Estimated Glomerular Filt Rate 50; Glucose Random 95 mg/dL (60-115); Potassium 3.9 mmol/L (3.3-5.1); Sodium 140 mmol/L (135-145); Total Protein 6.8 g/dL (6.5-8.0)
[2023-07-22 17:02] LABS: Erythrocyte Sedimentation Rate 2 MM/HR (0-20)
== END 2023-07-22 13:20 | disposition home or self-care (01) ==
LOC: HO.HMGCLDS 13:19
PROVIDERS: PCP Internal Medicine; Visit Provider Internal Medicine
DX: H66.91 Otitis media, unspecified, right ear (principal); J32.9 Chronic sinusitis, unspecified
CPT/HCPCS: 36415; 80053; 85025; 85652

== ENCOUNTER → 2023-08-13 12:55 | Outpatient (BNVA) | payer MEDICARE, OTHER, SELFPAY | PROVIDERS: PCP Internal Medicine; Visit Provider Orthopaedic Surgery ==

== ENCOUNTER 2023-08-28 11:57 | Outpatient (AMB) | payer MEDICARE, OTHER, SELFPAY ==
[2023-08-28 12:54] VITALS: BP 124/80; PULSE 54; O2SAT 96; BMI 25.6
--- NOTE | 2023-08-28 12:54 | MHC.PC.OV ---
Vital Signs 08/28/23 12:54 Height 5 ft 5 in Weight 154 lb BMI 25.6 BP 124/80 Blood Pressure Location Rt brachial Position Sitting Pulse 54 Pulse Source Pulse Oximeter Pulse Oximetry (%) 96 Oxygen Delivery Method Room Air Intake Visit Reasons: pre op R Total hip Arthr. on 09/11/23 Dr. Cook Intake Note: Pt is here today for a pre op visit. Pt is having R total hip surgery on 09/11/[address] Cook. Allergies No Known Allergies Allergy (Verified 08/28/23 12:58) Medication List - Last Reconciled 08/28/23 by Chen Pop MD acyclovir 400 mg PO BID aspirin (Adult Low Dose Aspirin) 81 mg PO DAILY calcium acetate calcium 1200 mg vitamin d3 1000 units docusate sodium (Stool Softener) 250 mg PO BID dorzolamide-timolol 22.3-6.8 mg/mL ophthalmic (eye) duloxetine 60 mg PO DAILY fluticasone propionate 50 mcg/actuation (Allergy Relief (fluticasone)) 1 spray intranasal DAILY gabapentin 2 capsule in a.m., 2 capsules bedtime. orally; ixazomib (Ninlaro) mg PO lidocaine HCl 2% (Lidocaine Viscous) 15 mL PO Q4H PRN lisinopril 2.5 mg PO DAILY prednisone 10 mg PO DAILY [probiotics 100mg orally; ] prochlorperazine maleate mg PO ropinirole 2 mg PO BEDTIME timolol maleate 0.5% ophthalmic (eye) tramadol mg PO trazodone 1-2 tabl orally bedtime; vitamin E 400 units PO DAILY Tobacco use date assessed: 07/22/23 HPI pre op R Total hip Arthr. on 09/11/23 Dr. Cook HPI Details Patient presents for the preop for right hip total arthroplasty, she complains of base of the left thumb pain worse when using her hands on and off for the last few weeks. Patient denies joint swelling or injury. She is recovering from COVID and feeling better. Patient follows up with [facility] for multiple myeloma in remission. [facility] Medical History Otitis media of right ear Cataract RLS (restless legs syndrome) Insomnia Anxiety Hx of breast cancer Trigeminal neuralgia Post-nasal drip Multiple myeloma Ankle fracture, left GERD (gastroesophageal reflux disease) Hypertension Surgical History History of colonoscopy H/O left knee surgery Status post ORIF of fracture of ankle Family History Other Mental health disorder Social History Household Members Other:: , 2 sons, Housing: House Are you a primary patient care associate to a significant other at home: No Do you presently have visiting nurse or other home services: No Comment: pt asleep Patient Tobacco Use Status: Former Tobacco user Quit Date: Tobacco use type: Cigarette Years Smoked: 3 years e-Cigarette/Vaping Use: Never Used service: No Current occupational status: retired Cognitive needs: No Hearing needs: No Vision needs: Yes Questionnaire Thrive Questionnaire Date Thrive assessed: 12/20/22 AUDIT C Alcohol Use Questionnaire (AUDIT-C) 1. How often do you have a drink containing alcohol?: Monthly or less 2. How many drinks containing alcohol do you have on a typical day when you are drinking?: 1 or 2 3. How often do you have six or more drinks on one occasion?: Never Total Score: 1 ROCK-7 AMB Questionnaire ROCK-7 Date ROCK - 7 assessed: 12/20/22 Feeling nervous, anxious, or on edge: 1 = Several days Not being able to stop or control worryin = Several days Worrying too much about different things: 0 = Not at all Trouble relaxin = Not at all Being so restless that it is hard to sit still: 0 = Not at all Becoming easily annoyed or irritable: 0 = Not at all Feeling afraid as if something awful might happen: 0 = Not at all Total ROCK-7 score (0-4 normal; 5-9 mild; 10-14 moderate; 15-21 severe): 2 Source: Developed by Drs. Talha Steve, Halina Pena, Levar Earl and colleagues, with an educational ramón from [employer] Review of Systems Const All systems reviewed & are unremarkable except as noted in HPI and below Reports no additional complaints Eyes Reports no additional complaints ENT Reports no additional complaints Card Reports no additional complaints Resp Reports no additional complaints GI Reports no additional complaints Reports no additional complaints Physical exam (Primary Care) Vital Signs: Last Vital Signs Pulse 54 08/28/23 12:54 BP 124/80 08/28/23 12:54 Pulse Ox 96 08/28/23 12:54 Oxygen Delivery Method Room Air 08/28/23 12:54 BMI result Body Mass Index 25.6 Tobacco/Smoking Status: Tobacco use Status Tobacco use date assessed 07/22/23 08/28/23 13:03 Patient Tobacco Use Status Former Tobacco user 08/28/23 13:03 Tobacco use type Cigarette 08/28/23 13:03 e-Cigarette/Vaping Use Never Used 08/28/23 13:03 Thrive Assessment: Date of Thrive Assessment Date Thrive assessed 12/20/22 08/28/23 13:03 Const General: no acute distress HENMT Head: Yes normal to inspection Ears: hearing grossly normal bilaterally General nose exam: Normal external nose present Neck Neck: Yes supple Resp Effort & Inspection: normal respiratory effort Auscultation: clear to auscultation bilaterally Cardio Rhythm: regular rhythm Heart sounds: S1 normal heart sound present and S2 normal heart sound present GI Inspection: Yes normal to inspection Percussion: Yes normal to percussion Auscultation: normal bowel sounds Extrem Other: Reproducible tenderness at the base of left thumb no joint swelling erythema or warmth Assessment and Plan Assessment & Plan (1) Hypertension: Code(s): I10 - Essential (primary) hypertension Plan: Continue lisnopril (2) Multiple myeloma: Comment: [facility], dxd 2020, in remission 01/28 on Ninlaro and Prolia q 3 months Code(s): C90.00 - Multiple myeloma not having achieved remission Plan: f/u with hematology (3) Osteoarthritis of right hip: Code(s): M16.11 - Unilateral primary osteoarthritis, right hip Plan: Patient is medically cleared for right hip surgery (4) Pain of left thumb: Code(s): M79.645 - Pain in left finger(s) Plan: Short course of prednisone is prescribed Orders: Orders Complete Blood Count Auto Diff Today C90.00 - Multiple myeloma not having achieved remission, I10 - Essential (primary) hypertension Comprehensive Met. Panel Today C90.00 - Multiple myeloma not having achieved remission, I10 - Essential (primary) hypertension Medications: New prednisone 4 tabl qd x 3days, 3 tabl qd x 3 days, 2 tabl qd x3 days, then 1 tabl qd 10 mg PO DAILY 30 tabs 0RF Changed From gabapentin One capsule in a.m., 1 capsule at lunch, 2 capsules q.h.s. orally; 120 caps 4RF To gabapentin 2 capsule in a.m., 2 capsules bedtime. orally; From lisinopril 5 mg PO DAILY 90 tabs 3RF To lisinopril 2.5 mg PO DAILY Coding Level of Care Code Est Pt Level 4 (52734) Diagnoses Hypertension I10 Multiple myeloma C90.00 Osteoarthritis of right hip M16.11 Pain of left thumb M79.645
== END 2023-08-28 13:27 | disposition home or self-care (01) ==
PROVIDERS: PCP Internal Medicine; Visit Provider Internal Medicine
DX: I10 Essential (primary) hypertension (principal); C90.00 Multiple myeloma not having achieved remission; M16.11 Unilateral primary osteoarthritis, right hip; M79.645 Pain in left finger(s)
CPT/HCPCS: 99214

== ENCOUNTER 2023-08-28 13:22 | Outpatient (REF) | payer MEDICARE, OTHER, SELFPAY ==
--- NOTE | ~2023-08-28 | XR_ITS ---
EXAMINATION: XR HAND, LEFT CLINICAL INFORMATION: Pain in left fingers. COMPARISON: Left wrist 11/29/2017. TECHNIQUE: PA, lateral, and oblique views of the left hand. FINDINGS: Marked degenerative changes are seen at the 1st CMC joint. There is a periarticular erosion involving the lateral triquetrum. There are mild degenerative changes involving the 1st DIP joint. These findings appear to have progressed when compared to 11/29/2017 exam. XR/XR hand LT min 3V IMPRESSION: Degenerative changes involving the 1st CMC joint and 1st DIP joint. Periarticular erosion involving the triquetrum.
[2023-08-28 16:46] LABS: MANUAL DIFF FLAG NO
[2023-08-28 16:51] LABS: Basophils Percent Auto 0.5 % (0-2); Eosinophils Percent Auto 0.3 % (0-4); Hematocrit 45.7 % (37.0-47.0); Hemoglobin 14.8 g/dl (12.0-16.0); Imm Gran Abs Auto 0.01 X10*3/uL (0.00-0.03); Imm Gran Pct Auto 0.3 % (0.0-0.4); Lymphocytes Percent Auto 27.3 % (20-40); Mean Corpuscular HGB Conc 32.4 g/dl (31.0-35.0); Mean Corpuscular Hemoglobin 32.2 pg (27.0-33.0); Mean Corpuscular Volume 99.6 fL (80.0-98.0); Monocytes Absolute Auto 0.4 X10*3/uL (0.1-1.2); Neutrophils Absolute Auto 2.3 x10*3/uL (2.0-8.3); Neutrophils Percent Auto 61.6 % (45-73); Platelet Count 205 X10*3/uL (160-400); Red Blood Count 4.59 X10*6/uL (4.20-5.50); Red Cell Distribution Width 13.5 % (11.0-16.0); White Blood Count 3.7 X10*3/uL (4.8-10.8)
[2023-08-28 17:34] LABS: Alanine Aminotransferase 11 U/L (0-31); Alkaline Phosphatase 65 U/L (39-117); Anion Gap 11 (12-20); Aspartate Amino Transferase 17 U/L (5-31); Bilirubin Total 0.2 mg/dL (0.0-1.0); Blood Urea Nitrogen 20 mg/dL (9-16); Calcium 8.9 mg/dL (8.4-10.2); Carbon Dioxide 29 mmol/L (22-29); Chloride 104 mmol/L (96-108); Estimated Glomerular Filt Rate 57; Glucose Random 94 mg/dL (60-115); Potassium 4.4 mmol/L (3.3-5.1); Sodium 140 mmol/L (135-145); Total Protein 7.3 g/dL (6.5-8.0)
== END 2023-08-28 13:23 | disposition home or self-care (01) ==
LOC: HO.HMGCLDS 13:22
PROVIDERS: PCP Internal Medicine; Visit Provider Internal Medicine
DX: M79.645 Pain in left finger(s) (principal); I10 Essential (primary) hypertension; C90.00 Multiple myeloma not having achieved remission
CPT/HCPCS: 36415; 73130; 80053; 85025

== ENCOUNTER → 2023-09-04 13:27 | Outpatient (BNV) | payer MEDICARE, OTHER, SELFPAY | PROVIDERS: Admitting Provider Orthopaedic Surgery; PCP Internal Medicine; Visit Provider Internal Medicine | DX: R94.31 Abnormal electrocardiogram [ECG] [EKG] (principal) | CPT/HCPCS: 93010 ==

== ENCOUNTER → 2023-09-05 15:01 | Outpatient (BNVA) | payer MEDICARE, OTHER, SELFPAY | PROVIDERS: PCP Internal Medicine; Visit Provider Physician Assistant ==

== ENCOUNTER 2023-09-06 13:56 | Outpatient (AMB) | payer MEDICARE, OTHER, SELFPAY ==
--- NOTE | 2023-09-06 13:56 | MHC.OFFWIV ---
Intake Vital Signs 09/06/23 13:58 Height 5 ft 5 in Weight 157 lb BMI 26.1 BP 118/70 Blood Pressure Location Lt brachial Position Sitting Pulse 66 Temp 98.6 F Temp Source Temporal Artery Scan Intake Visit Reasons: EST/ ear infection (lobby masked) Intake Note: pt is here today for lft ear infection started today Patient Tobacco Use Status: Former Tobacco user Quit Date: Allergies No Known Allergies Allergy (Verified 09/06/23 13:58) Do you need a note to return to daycare/school/sports/work: No HPI HPI Comments History of Present Illness Details She presents for pain in ears 3am onset She describes as pounding but has improved since this am Taking tylenol which helps + tenderness L ear now She has hip replacement next week scheduled and wanted to be seen She said + congestion and irritated cough No ST She said minimal cough COVID 2 weeks ago She denies CP or SOB PFSH Medical History (Updated 09/06/23 @ 14:28 by Jessica Raya PA-C) Personal history of COVID-19 Pain Slow to wake up after anesthesia Achalasia of esophagus Otitis media of right ear Cataract RLS (restless legs syndrome) Insomnia Anxiety Hx of breast cancer Post-nasal drip Multiple myeloma Ankle fracture, left GERD (gastroesophageal reflux disease) Hypertension Surgical History Hx of bilateral cataract extraction History of lumpectomy of right breast History of History of surgery on left wrist History of colonoscopy H/O left knee surgery Status post ORIF of fracture of ankle (~2020) Family History Other Mental health disorder Social History Household Members Other:: , 2 sons, Housing: House Are you a primary childcare aide to a significant other at home: No Do you presently have visiting nurse or other home services: No Comment: pt asleep Patient Tobacco Use Status: Former Tobacco user Quit Date: Tobacco use type: Cigarette Years Smoked: 2 e-Cigarette/Vaping Use: Never Used service: No Current occupational status: retired Cognitive needs: No Hearing needs: No Vision needs: Yes Review of Systems Const Denies body aches, Denies chills, Denies fatigue, Denies fever(s) and Denies headache(s) Eyes Denies blurry vision ENT Denies dizziness, Denies ear discharge, Reports otalgia, Denies facial pain, Denies headache(s), Reports nasal discharge, Denies sore throat and Denies throat swelling Card Denies chest pain and Denies dyspnea Resp Denies cough and Denies dyspnea Musc Denies myalgias Neuro Denies dizziness and Denies headache(s) Endo Denies fatigue Aller/Immun Denies throat swelling Physical Exam Vital Signs: Last Vital Signs Temp 98.6 F 09/06/23 13:58 Pulse 66 09/06/23 13:58 BP 118/70 09/06/23 13:58 BMI result Body Mass Index 26.1 General: Non-toxic, NAD. Speaking full sentences. Skin: Warm dry throughout Eye: EOMI HENT: Airway patent. Uvula midline. No pharyngeal erythema or edema. No JOY OPERATOR HELPER. Bilateral canals with miniaml cerumen. TM non-erythematous, non-bulging. No large fluid behind TM. No TM perforation or hemotympanum noted. Respiratory: CTA bilaterally. No wheezes, rales or rhonchi Cardiac: RRR. No murmur Neurology: A/O. No aphasia or facial droop. Gait without abnormality Psych: Good mood and affect Assessment & Plan Assessment & Plan (1) Otalgia of both ears: Code(s): H92.03 - Otalgia, bilateral Plan: Patient seen and evaluated. COVID/RSV/flu obtained due to surgery saturday No OM or OE on exam Verbal consent obtained and cerumen removed from canal with curette without complication. Pt tolerared well Advised decongestant and tylenol Follow up in office if no improvement prior to surgery Patient gave verbal understanding and had no additional questions or concerns at time of discharge All questions answered Orders: Orders SARS-CoV2/FLU/RSV Today H92.03 - Otalgia, bilateral Coding Level of Care Code Est Pt Level 3 (83976) Diagnoses Otalgia of both ears H92.03
[2023-09-06 13:58] VITALS: BP 118/70; PULSE 66; TEMP 37; BMI 26.1
== END 2023-09-06 14:52 | disposition home or self-care (01) ==
PROVIDERS: PCP Internal Medicine; Visit Provider Physician Assistant
DX: H92.03 Otalgia, bilateral (principal)
CPT/HCPCS: 99213

== ENCOUNTER 2023-09-06 16:05 | Outpatient (REF) | payer MEDICARE, OTHER, SELFPAY ==
[2023-09-06 17:24] LABS: Influenza A PCR NEGATIVE (Negative); Influenza B PCR NEGATIVE (Negative); Resp Syncy Virus RNA Qual PCR NEGATIVE (Negative); SARS COV2 PCR INHOUSE POSITIVE (Negative)
== END 2023-09-06 16:06 | disposition home or self-care (01) ==
LOC: HO.LNP 16:05
PROVIDERS: Visit Provider Physician Assistant
DX: H92.03 Otalgia, bilateral (principal); Z20.828 Contact with and (suspected) exposure to other viral communicable diseases; Z20.822 Contact with and (suspected) exposure to COVID-19
CPT/HCPCS: 0241U

== ENCOUNTER 2023-09-11 06:44 | Inpatient (IN) | payer MEDICARE, OTHER, SELFPAY ==
[2023-09-04 13:12] VITALS: BP 129/74; PULSE 70; RESP 16; O2SAT 96; BMI 26.9
--- NOTE | 2023-09-04 13:27 | ECG_ITS ---
Test Reason : PREOP Blood Pressure : / mmHG Vent. Rate : 064 BPM Atrial Rate : 064 BPM P-R Int : 174 ms QRS Dur : 090 ms QT Int : 420 ms P-R-T Axes : 055 -28 035 degrees QTc Int : 433 ms Normal sinus rhythm Low voltage QRS Septal infarct , age undetermined Abnormal ECG When compared with ECG of 10-SEP-2020 06:55, No significant change was found Referred By: Miguel Prado Electronically Signed By:LORENZO MURGUIA
[2023-09-04 15:16] LABS: MRSA Nasal PCR NEGATIVE (Negative); SA Nasal PCR NEGATIVE (Negative)
--- NOTE | 2023-09-10 08:35 | HO.ANESPROP2 ---
Documented by User: Monica Mishra NP 09/10/23 08:37 HPI - Anesthesia Eval Consult details Narrative: 77yo F for Right Hip Total Replacement Seen in PAT 09/04/[address] Pierre YU Active Problems Active Problems: All Active Problems (Updated 09/09/23 @ 21:57 by Miguel Prado PA-C) Otalgia of both ears (Acute) Pain of left thumb (Acute) Sinusitis (Acute) Osteoarthritis of left knee (Acute) Osteoarthritis of right knee (Acute) Osteoarthritis of left hip (Acute) Osteoarthritis of right hip (Acute) Cough (Acute) Upper respiratory tract infection (Acute) Vaginal itching (Acute) Balance disorder (Acute) Hx of meningioma of the brain (Acute) Trigeminal neuralgia of right side of face (Acute) Lip pain (Acute) Otitis media of right ear (Acute) Post-nasal drip (Acute) Hypertension (Acute) Cataract (Acute) RLS (restless legs syndrome) (Acute) Insomnia (Acute) Anxiety (Acute) History of colonoscopy (Acute) Hx of breast cancer (Acute) Multiple myeloma (Acute) Past Medical History Medical History Personal history of COVID-19 Pain Slow to wake up after anesthesia Achalasia of esophagus Otitis media of right ear Cataract RLS (restless legs syndrome) Insomnia Anxiety Hx of breast cancer Post-nasal drip Multiple myeloma Ankle fracture, left GERD (gastroesophageal reflux disease) Hypertension Family History Family History Other Mental health disorder Family history of problems with anesthesia: No Surgical History Surgical History Hx of bilateral cataract extraction History of lumpectomy of right breast History of History of surgery on left wrist History of colonoscopy H/O left knee surgery Status post ORIF of fracture of ankle (~2020) History of Problems with Anesthesia: No Social History Social History Household Members Other:: , 2 sons, Housing: House Are you a primary dialysis patient care technician to a significant other at home: No Do you presently have visiting nurse or other home services: No Comment: pt asleep Patient Tobacco Use Status: Former Tobacco user Quit Date: Tobacco use type: Cigarette Years Smoked: 2 e-Cigarette/Vaping Use: Never Used Use of substances other than those prescribed or required for medical reasons: No Have you been hit, kicked, punched, or otherwise hurt by someone within the past year? If so, by whom?: No Are you DNR?: No Advance Directives: No Advance Directives Information Provided: Yes Advance Directives on File: No Recently lost weight without trying: No Nutrition Risks: Surgical patient >75years service: No Current occupational status: retired Cognitive needs: No Hearing needs: No Vision needs: Yes Meds Allergies Allergy/AdvReac Type Severity Reaction Status Date / Time No Known Allergies Allergy Verified 09/11/23 06:45 Home Medications Medication Instructions Recorded Confirmed Last Taken Type acyclovir 400 mg tablet 400 mg PO BID 11/30/21 09/05/23 09/10/23 History calcium acetate PO .daily 11/30/21 09/05/23 09/10/23 History docusate sodium 250 mg capsule 250 mg PO BID 11/30/21 09/04/23 Unknown History (Stool Softener) lidocaine HCl 2 % mucosal solution 15 ml PO Q4H PRN Pain 08/21/22 09/05/23 Unknown History (Lidocaine Viscous) probiotics See Rx Instructions PO .COMPLEX 08/21/22 09/05/23 09/10/23 History dorzolamide 22.3 mg-timolol 6.8 ophthalmic (eye) 08/13/23 08/28/23 09/10/23 History mg/mL eye drops gabapentin 300 mg capsule 600 mg PO BID 08/28/23 09/05/23 09/11/23 05:30 History lisinopril 5 mg tablet 2.5 mg PO DAILY 08/28/23 09/05/23 09/10/23 History prochlorperazine maleate 5 mg 10 mg PO DAILY PRN Nausea And 08/28/23 09/05/23 Unknown History tablet Vomiting ixazomib 3 mg capsule (Ninlaro) mg PO 09/04/23 09/05/23 Unknown History montelukast 10 mg tablet 10 mg PO BEDTIME 09/04/23 09/05/23 09/10/23 History (Singulair) pantoprazole 40 mg tablet,delayed 40 mg PO BEDTIME 09/04/23 09/05/23 09/10/23 History release ropinirole 2 mg tablet 2 mg PO BEDTIME 09/05/23 09/05/23 09/10/23 History Exam Height,Weight and Vital Signs: Height 5 ft 4 in Weight 71.214 kg Last Vital Signs Pulse 70 09/04/23 13:12 Resp 16 09/04/23 13:12 BP 129/74 09/04/23 13:12 Pulse Ox 96 09/04/23 13:12 O2 Del Method Room Air 09/04/23 13:12 Pertinent Lab Results Pertinent Lab Results: Laboratory Tests 09/04/23 09/04/23 13:30 14:27 Nasal Screen MRSA (PCR) NEGATIVE Nasal S. aureus Screen NEGATIVE Nasal MRSA/S.aureus Interp SEE NOTE Blood Type O Positive Antibody Screen NEGATIVE Laboratory Tests 08/28/23 13:27 WBC 3.7 L Hgb 14.8 Hct 45.7 Plt Count 205 Sodium 140 Potassium 4.4 Chloride 104 Carbon Dioxide 29 BUN 20 H Creatinine 0.96 Narrative Narrative: EKG 08/2023 Vent. Rate : 064 BPM Atrial Rate : 064 BPM P-R Int : 174 ms QRS Dur : 090 ms QT Int : 420 ms P-R-T Axes : 055 -28 035 degrees QTc Int : 433 ms Normal sinus rhythm Low voltage QRS Septal infarct , age undetermined Abnormal ECG When compared with ECG of 10-SEP-2020 06:55, No significant change was found Assessment and Plan Assessment Anesthesia Assessment: Chart Reviewed Final Anesthetic Review Family History of Problems with Anesthesia: No History of Problems with Anesthesia: No Documented by User: Jenniffer Jimenez MD 09/11/23 08:04 [facility] Past Medical History Medical History Personal history of COVID-19 Pain Slow to wake up after anesthesia Achalasia of esophagus Otitis media of right ear Cataract RLS (restless legs syndrome) Insomnia Anxiety Hx of breast cancer Post-nasal drip Multiple myeloma Ankle fracture, left GERD (gastroesophageal reflux disease) Hypertension Family History Family History Other Mental health disorder Surgical History Surgical History Hx of bilateral cataract extraction History of lumpectomy of right breast History of History of surgery on left wrist History of colonoscopy H/O left knee surgery Status post ORIF of fracture of ankle (~2020) Social History Social History Household Members Other:: , 2 sons, Housing: House Are you a primary dialysis patient care technician to a significant other at home: No Do you presently have visiting nurse or other home services: No Comment: pt asleep Patient Tobacco Use Status: Former Tobacco user Quit Date: Tobacco use type: Cigarette Years Smoked: 2 e-Cigarette/Vaping Use: Never Used Use of substances other than those prescribed or required for medical reasons: No Have you been hit, kicked, punched, or otherwise hurt by someone within the past year? If so, by whom?: No Are you DNR?: No Advance Directives: No Advance Directives Information Provided: Yes Advance Directives on File: No Recently lost weight without trying: No Nutrition Risks: Surgical patient >75years service: No Current occupational status: retired Cognitive needs: No Hearing needs: No Vision needs: Yes Meds Allergies Allergy/AdvReac Type Severity Reaction Status Date / Time No Known Allergies Allergy Verified 09/11/23 06:45 Home Medications Medication Instructions Recorded Confirmed Last Taken Type acyclovir 400 mg tablet 400 mg PO BID 11/30/21 09/05/23 09/10/23 History calcium acetate PO .daily 11/30/21 09/05/23 09/10/23 History docusate sodium 250 mg capsule 250 mg PO BID 11/30/21 09/04/23 Unknown History (Stool Softener) lidocaine HCl 2 % mucosal solution 15 ml PO Q4H PRN Pain 08/21/22 09/05/23 Unknown History (Lidocaine Viscous) probiotics See Rx Instructions PO .COMPLEX 08/21/22 09/05/23 09/10/23 History dorzolamide 22.3 mg-timolol 6.8 ophthalmic (eye) 08/13/23 08/28/23 09/10/23 History mg/mL eye drops gabapentin 300 mg capsule 600 mg PO BID 08/28/23 09/05/23 09/11/23 05:30 History lisinopril 5 mg tablet 2.5 mg PO DAILY 08/28/23 09/05/23 09/10/23 History prochlorperazine maleate 5 mg 10 mg PO DAILY PRN Nausea And 08/28/23 09/05/23 Unknown History tablet Vomiting ixazomib 3 mg capsule (Ninlaro) mg PO 09/04/23 09/05/23 Unknown History montelukast 10 mg tablet 10 mg PO BEDTIME 09/04/23 09/05/23 09/10/23 History (Singulair) pantoprazole 40 mg tablet,delayed 40 mg PO BEDTIME 09/04/23 09/05/23 09/10/23 History release ropinirole 2 mg tablet 2 mg PO BEDTIME 09/05/23 09/05/23 09/10/23 History Exam Airway Mallampati Class: III TM Dist: >3cm Neck ROM: Full Partial: Upper Loose/Missing/Broken Teeth: Yes and Upper Heart: RRR Lungs: CTA Assessment and Plan Assessment Anesthesia Assessment: Anesthesia Plan Discussed Final Anesthetic Review NPO: Yes ASA Class: II Final Preanesthetic Review: Meds/Allgs Chart Reviewed, Consent Obtained/Reviewed and Anes Risks/Benef Reviewed Patient Risk: Low Procedure Risk: Intermediate Anesthetic Plan Anesthetic Plan: GA Disposition: Standard PACU
[2023-09-11] VITALS (17 sets, daily range): BP systolic 98–149; BP diastolic 50–78; PULSE 47–61; RESP 8–19; TEMP 36–36.7; O2SAT 90–100; BMI 27.6; BMI 30.5
--- OUTSIDE RECORDS SUMMARY | 2023-09-11 06:51 | XMS_ITS | Continuity of Care Document ---
Author Name Unknown Organization [facility] Address [address] [place] [id number] Care Team Providers Care Transfer Table Operator Helper Name Role Phone Chen Pop MD Primary Care Physician [id number] Date(s): 05/22/23 - 06/21/23 [facility] [address] [place] [id number]- Allergies, Adverse Reactions, Alerts No Known Allergies Immunizations Given and Recorded Vaccine Date Status Refusal Reason pneumococcal 13-valent vaccine 1 05/05/21 Given SARS-CoV-2 (COVID-19) mRNA BNT-162b2 vac 11/24/20 Recorded SARS-CoV-2 (COVID-19) mRNA BNT-162b2 vac 11/03/20 Recorded pneumococcal 23-valent vaccine 05/23/11 Given 1Early/Late Reason: Early/Late Reason: Accommodate D/C Medications acyclovir 400 mg oral tablet 1 tablet, By Mouth, 2 times a day, # 180 tablet, 2 Refills, Maintenance, 05/27/23 5:20:00 EDT, [id number], 165, cm, 05/22/23 9:30:00 EDT, Height, 70.6, kg, 05/22/23 9:30:00 EDT, Dry Weight Start Date: 05/27/23 Status: Ordered Aspirin Low Dose 81 mg oral delayed release tablet 1 tablet, By Mouth, Daily, # 90 tablet, 3 Refills, Maintenance, 06/27/22 7:48:00 EDT, [id number], 165, cm, 06/01/22 14:30:00 EDT, Height, 70.5, kg, 05/23/22 12:06:00 EDT, Dry Weight Start Date: 06/27/22 Status: Ordered Cequa 0.09% ophthalmic solution 1 drops, Eyes, Both, Every 12 hours, 0 Refills, Maintenance, 06/20/23 11:58:00 EDT, Partial fill upon patient request if the prescription is for a schedule II opioid drug. Start Date: 06/20/23 Status: Ordered Fish Oil 1000 mg oral capsule 1 capsule = 1,000 mg, By Mouth, Daily, 0 Refills, Maintenance, 06/03/20 6:18:00 EDT Start Date: 06/03/20 Status: Ordered gabapentin 300 mg oral capsule 2, capsule, By Mouth, Daily at bedtime, # 60 capsule, Refills 0, Maintenance, 06/27/22 8:11:00 EDT,Route to Pharmacy Electronically, [id number], 165, cm, 06/01/22 14:30:00 EDT, Height, 70.5, kg, 05/23/22 12:06:00 EDT, Dry Weight Start Date: 06/27/22 Status: Ordered ixazomib 3 mg oral capsule 1 capsule = 3 mg, By Mouth, Every 7 days, on day 1, 8 and 15 of a 28-day cycle, # 3 capsule, 0 Refills, Maintenance, 06/02/23 20:32:00 EDT, Capsule, [facility], Partial fill upon patient request if the prescription is for a schedule I... Start Date: 06/02/23 Status: Ordered ixazomib 3 mg oral capsule 1 capsule = 3 mg, By Mouth, Every 7 days, on day 1, 8 and 15 of a 28-day cycle, # 3 capsule, 0 Refills, Maintenance, 03/11/23 14:02:00 EDT, Capsule, [facility], Partial fill upon patient request if the prescription is for a schedule I... Start Date: 03/11/23 Status: Ordered ixazomib 3 mg oral capsule 1 capsule = 3 mg, By Mouth, Every 7 days, on day 1, 8 and 15 of a 28-day cycle, # 3 capsule, 0 Refills, Maintenance, 05/03/23 17:53:00 EDT, Capsule, [facility], Partial fill upon patient request if the prescription is for a schedule I... Start Date: 05/03/23 Status: Ordered ixazomib 3 mg oral capsule 1 capsule = 3 mg, By Mouth, Every 7 days, on day 1, 8 and 15 of a 28-day cycle, # 3 capsule, 0 Refills, Maintenance, 02/20/23 18:49:00 EDT, Capsule, [facility], Partial fill upon patient request if the prescription is for a schedule I... Start Date: 02/20/23 Status: Ordered ixazomib 3 mg oral capsule 1 capsule = 3 mg, By Mouth, Every 7 days, on day 1, 8 and 15 of a 28-day cycle, # 3 capsule, 0 Refills, Maintenance, 08/16/22 18:15:00 EST, Capsule, [facility], Partial fill upon patient request if the prescription is for a schedule I... Start Date: 08/16/22 Status: Ordered ixazomib 3 mg oral capsule 1 capsule = 3 mg, By Mouth, Every 7 days, on day 1, 8 and 15 of a 28-day cycle, # 3 capsule, 0 Refills, Maintenance, 11/16/22 17:54:00 EST, Capsule, [facility], Partial fill upon patient request if the prescription is for a schedule I... Start Date: 11/16/22 Status: Ordered Lidocaine 5% Topical Topically, PRN as needed for mouth sore pain, 0 Refills, Maintenance Start Date: 10/08/13 Status: Ordered lisinopril 5 mg oral tablet 5 mg, 1, tablet, By Mouth, Daily, # 30 tablet, Refills 0, Maintenance, 06/06/23 11:57:00 EDT, Partial fill upon patient request if the prescription is for a schedule II opioid drug. Start Date: 06/06/23 Status: Ordered melatonin 3 mg oral tablet = 3 mg, By Mouth, Daily at bedtime, # 60 tablet, 0 Refills, Maintenance, 05/03/21 12:35:00 EDT, Tablet, [facility], Partial fill upon patient request if the prescription is for a schedule II opioid drug., 165, cm, 05/03/21 7:51:00 EDT, H... Start Date: 05/03/21 Status: Ordered MiraLax oral powder for reconstitution = 17 Gm, By Mouth, Daily, PRN Constipation, dissolve in water before taking, # 527 Gm, 1 Refills, Maintenance, 07/30/22 16:13:00 EST, REC Powder, [facility]/pharmacy #[id number], Partial fill upon patient requestif the prescription is for a schedule II opioid marcela... Start Date: 07/30/22 Status: Ordered montelukast 10 mg oral tablet 10 mg, 1, tablet, By Mouth, Daily, Refills 0, Maintenance, 06/06/23 11:57:00 EDT, Partial fill uponpatient request if the prescription is for a schedule II opioid drug. Start Date: 06/06/23 Status: Ordered pantoprazole 40 mg oral delayed release tablet 1 tablet = 40 mg, By Mouth, Daily, # 30 tablet, 0 Refills, Maintenance, 07/19/21 17:15:00 EST, [facility] Tablet, 165, cm, 07/19/21 15:29:00 EST, Height, 75.2, kg, 07/19/21 15:29:00 EST, Dry Weight Start Date: 07/19/21 Stop Date: 08/18/21 Status: Ordered prochlorperazine 5 mg oral tablet 1-2 tablet, By Mouth, Every 6 hours, PRN Nausea, # 60 tablet, 1 Refills, Maintenance, 08/30/22 15:54:00 EST, [facility]/pharmacy #[id number], Partial fill upon patient request if the prescription is for a schedule II opioid drug., 165, cm, 08/30/22 15:40:00 EST, H... Start Date: 08/30/22 Status: Ordered rOPINIRole 0.5 mg oral tablet 1 tablet = 0.5 mg, By Mouth, 2 times a day, 0 Refills, Maintenance, 02/14/22 12:10:00 EDT, Partial fill upon patient request if the prescription is for a schedule II opioid drug. Start Date: 02/14/22 Status: Ordered Senna 8.6 mg oral tablet 17.2 mg, 2, tablet, By Mouth, Daily at bedtime, PRN, # 100 tablet, Refills 0, Tot. Refills 0, Maintenance, for constipation, 05/08/21 12:51:00 EDT, Route to Pharmacy Electronically, [facility]/pharmacy #[id number] Tablet, Partial fill upon patient request if the p... Start Date: 05/08/21 Status: Ordered timolol maleate 0.5% ophthalmic gel forming solution 1 drops, Eye, Right, Daily, # 5 mL, 0 Refills, Maintenance, 06/06/23 11:57:00 EDT, Gel, Partial fill upon patient request if the prescription is for a schedule II opioid drug. Start Date: 06/06/23 Status: Ordered traZODone 50 mg oral tablet 25 mg, 0.5, tablet, By Mouth, Daily at bedtime, # 15 tablet, Refills 0, Maintenance, 04/26/21 19:36:00 EDT, Partial fill upon patient request if the prescription is for a schedule II opioid drug. Start Date: 04/26/21 Status: Ordered Tylenol Caplet Extra Strength 500 mg oral tablet 2 tablet = 1,000 mg, By Mouth, Every 6 hours, 0 Refills, Maintenance, 01/13/15 15:42:40 Start Date: 01/13/15 Status: Ordered Vitamin D3 1000 intl units oral capsule 1 capsule = 25 mcg, By Mouth, Daily, # 100 capsule, 0 Refills, Maintenance, 05/03/21 12:36:00 EDT, Capsule, [facility], Partial fill upon patient request if the prescription is for a schedule II opioid drug., 165, cm, 05/03/21 7:51:00 ED... Start Date: 05/03/21 Status: Ordered Zomig 5 mg oral tablet 1 tablet, By Mouth, Daily, PRN for migraine headache, may repeat dose after 2 hours up to a maximumof 1, # 3 tablet, 0 Refills, Maintenance, Tablet Start Date: 05/02/11 Status: Ordered Problem List Condition Confirmation Course Effective Dates Status Health St atus Informant Essential hypertension Confirmed Active Essential tremor Confirmed Active GERD without esophagitis Confirmed Active Intracranial tumor NOS Confirmed Active Meningioma Confirmed Active Social History Social History Type Response Smoking Status Former smoker entered on: 12/10/14 Sex Patient Care team information Care Team Personnel Name: Sophia Khanna Position: [facility] Onco RN Member Role: Primary Care Nurse Name: Chen Pop MD Position: [facility] Physician - Primary Care Member Role: PCP Address: Address: [address] [place], [place] [address] Name: Eli Layton RN Position: [facility] RN Member Role: Primary Care Nurse Name: Cony Hernández RN Position: [facility] Onco RN Member Role: Primary Care Nurse Name: Torri Manley Position: [facility] RN Member Role: Primary Care Nurse Name: Jerman Bain MD Position: [facility] Renal MD Member Role: Lifetime Consulting Physician Address: Address: [address] [place] [address] [address] [facility] [place] [address]- Name: Jd Estrella RN Position: [facility] Onco RN Member Role: Primary Care Nurse Name: Binta Pena RN Position: [facility] Onco RN Member Role: Primary Care Nurse Name: Chantel Hyde RN, I Position: [facility] RN Member Role: Primary Care Nurse Care Team Related Persons Name: IDA MARSHALL Address: [address] [place] [address] Name: ARMANDO MARSHALL
--- OUTSIDE RECORDS SUMMARY | 2023-09-11 06:51 | XMS_ITS | Continuity of Care Document ---
Author Name Unknown Organization [facility] Address [address] [place] [phone]- Care Team Providers Care [employer] Name Role Phone Chen Pop MD [id number] Date[facility]s): 08/22/22 - 03/23/23 [facility] [address] [place] [id number]- Discharge Disposition: A-D/C Home Attending Physician: Syed SHARP(Hem/Onc), Deep Karly Admitting Physician: Dorothy Dejesus MD Referring Physician: Chen Pop MD Allergies, Adverse Reactions, Alerts No Known Allergies [...] day, # 180 tablet, 2 Refills, Maintenance, 10/15/22 8:14:00 EST, [id number], 165, cm, 09/26/22 13:12:00 EST, Height, 73.6, kg, 09/26/22 11:25:00 EST, Dry Weight Start Date: 10/15/22 Status: Ordered Aspirin Low Dose 81 mg oral delayed release tablet 1 tablet, By Mouth, Daily, # 90 tablet, 3 Refills, Maintenance, 06/27/22 7:48:00 EDT, [id number], 165, cm, 06/01/22 14:30:00 EDT, Height, 70.5, kg, 05/23/22 12:06:00 EDT, Dry Weight Start Date: 06/27/22 Status: Ordered Bactrim 400 mg-80 mg oral tablet 1 tablet, By Mouth, Every Saturday, Saturday and Saturday, # 45 tablet, 1 Refills, Maintenance, 05/03/21 17:11:00 EDT, [facility]/pharmacy #[id number], Partial fill upon patient request if the prescription is for a schedule II opioid drug., 1 tablet By Mouth Every Mo... Start Date: 05/03/21 Status: Ordered docusate sodium 100 mg oral tablet 2 tablet = 200 mg, By Mouth, 2 times a day, PRN for constipation, # 60 tablet, 0 Refills, Maintenance, 06/01/20 15:05:00 EDT, Tablet Start Date: 06/01/20 Status: Ordered Evista 60 mg oral tablet 1 tablet = 60 mg, By Mouth, Daily, 0 Refills, Maintenance, 10/08/13 9:13:07 Start Date: 10/08/13 Status: Ordered ferrous sulfate 325 mg oral tablet 1 tablet, By Mouth, Every other day, # 15 tablet, 1 Refills, Maintenance, 02/18/23 11:17:00 EDT, [id number], 165, cm, 01/21/23 15:29:00 EDT, Height, 71.9, kg, 01/09/23 11:16:00 EDT, Dry Weight Start Date: 02/18/23 Stop Date: 03/20/23 Status: Ordered Fish Oil 1000 mg oral capsule 1 capsule = 1,000 mg, By Mouth, Daily, 0 Refills, Maintenance, 06/03/20 6:18:00 EDT Start Date: 06/03/20 Status: Ordered gabapentin 300 mg oral capsule 2, capsule, By Mouth, Daily at bedtime, # 60 capsule, Refills 0, Maintenance, 06/27/22 8:11:00 EDT,Route to Pharmacy Electronically, [id number], 165, cm, 06/01/22 14:30:00 EDT, Height, 70.5, kg, 05/23/22 12:06:00 EDT, Dry Weight Start Date: 06/27/22 Status: Ordered Hyoscyamine = 0.375 mg, By Mouth, Every 12 hours, 0 Refills, Maintenance, 06/01/20 15:12:00 EDT Start Date: 06/01/20 Status: Ordered ixazomib 3 mg oral capsule 1 capsule = 3 mg, By Mouth, Every 7 days, on day 1, 8 and 15 of a 28-day cycle, # 3 capsule, 0 Refills, Maintenance, 03/11/23 14:02:00 EDT, Capsule, [facility], Partial fill upon patient request if the prescription is for a schedule I... Start Date: 03/11/23 Status: Ordered ixazomib 3 mg oral capsule 1 capsule = 3 mg, By Mouth, Every 7 days, on day 1, 8 and 15 of a 28-day cycle, # 3 capsule, 0 Refills, Maintenance, 02/20/23 18:49:00 EDT, Capsule, [facility], Partial fill upon patient request if the prescription is for a schedule I... Start Date: 02/20/23 Status: Ordered ixazomib 3 mg oral capsule 1 capsule = 3 mg, By Mouth, Every 7 days, on day 1, 8 and 15 of a 28-day cycle, # 3 capsule, 0 Refills, Maintenance, 08/16/22 18:15:00 EST, Capsule, [facility], Partial fill upon patient request if the prescription is for a schedule I... Start Date: 08/16/22 Status: Ordered ixazomib 3 mg oral capsule 1 capsule = 3 mg, By Mouth, Every 7 days, on day 1, 8 and 15 of a 28-day cycle, # 3 capsule, 0 Refills, Maintenance, 11/16/22 17:54:00 EST, Capsule, [facility], Partial fill upon patient request if the prescription is for a schedule I... Start Date: 11/16/22 Status: Ordered Lidocaine 5% Topical Topically, PRN as needed for mouth sore pain, 0 Refills, Maintenance Start Date: 10/08/13 Status: Ordered melatonin 3 mg oral tablet = 3 mg, By Mouth, Daily at bedtime, # 60 tablet, 0 Refills, Maintenance, 05/03/21 12:35:00 EDT, Tablet, [facility], Partial fill upon patient request if the prescription is for a schedule II opioid drug., 165, cm, 05/03/21 7:51:00 EDT, H... Start Date: 05/03/21 Status: Ordered MiraLax oral powder for reconstitution = 17 Gm, By Mouth, Daily, PRN Constipation, dissolve in water before taking, # 527 Gm, 1 Refills, Maintenance, 07/30/22 16:13:00 EST, REC Powder, [facility]/pharmacy #[id number], Partial fill upon patient requestif the prescription is for a schedule II opioid marcela... Start Date: 07/30/22 Status: Ordered pantoprazole 40 mg oral delayed release tablet 1 tablet = 40 mg, By Mouth, Daily, # 30 tablet, 0 Refills, Maintenance, 07/19/21 17:15:00 EST, [facility] Tablet, 165, cm, 07/19/21 15:29:00 EST, Height, 75.2, kg, 07/19/21 15:29:00 EST, Dry Weight Start Date: 07/19/21 Stop Date: 08/18/21 Status: Ordered Paxlovid 150 mg-100 mg (150 mg-100 mg Dose) oral tablet See Instructions, Nirmatrelvir 150 mg and ritonavir 100 mg twice daily for 5 days, # 10 tablet, 0 Refills, Maintenance, 03/24/22 12:41:00 EDT, [facility]/pharmacy #[id number], Partial fill upon patient request ifthe prescription is for a schedule II opioid drug.... Start Date: 03/24/22 Status: Ordered prochlorperazine 5 mg oral tablet 1-2 tablet, By Mouth, Every 6 hours, PRN Nausea, # 60 tablet, 1 Refills, Maintenance, 08/30/22 15:54:00 EST, [facility]/pharmacy #[id number], Partial fill upon patient request if the prescription is for a schedule II opioid drug., 165, cm, 08/30/22 15:40:00 EST, H... Start Date: 08/30/22 Status: Ordered propranolol 40 mg oral tablet 0.5 tablet = 20 mg, By Mouth, Daily, 0 Refills, Maintenance, 10/08/13 9:12:42 EST Start Date: 10/08/13 Status: Ordered rOPINIRole 0.5 mg oral tablet [...] 05/08/21 12:51:00 EDT, Route to Pharmacy Electronically, [facility]/pharmacy #[id number] Tablet, Partial fill upon patient request if the p... Start Date: 05/08/21 Status: Ordered Senna Plus 50 mg-8.6 mg oral tablet 2 tablet, By Mouth, Daily at bedtime, PRN Constipation, # 60 tablet, 3 Refills, Maintenance, 06/30/21 14:45:00 EDT, Tablet, [facility]/pharmacy #[id number], Partial fill upon patient request if the prescription is for a schedule II opioid drug., 2 tablet By Mouth... Start Date: 06/30/21 Status: Ordered traZODone 50 mg oral tablet [...] 01/13/15 15:42:40 Start Date: 01/13/15 Status: Ordered Vagifem 10 mcg vaginal tablet Vaginally, Daily at bedtime, 0 Refills, Maintenance, 10/08/13 9:13:17 Start Date: 10/08/13 Status: Ordered Vitamin D3 1000 intl units oral capsule 1 capsule = 25 mcg, By Mouth, Daily, # 100 capsule, 0 Refills, Maintenance, 05/03/21 12:36:00 EDT, Capsule, [facility], Partial fill upon patient request if the prescription is for a schedule II opioid drug., 165, cm, 05/03/21 7:51:00 ED... Start Date: 05/03/21 Status: Ordered Zofran 4 mg oral tablet 1 tablet = 4 mg, By Mouth, Every 8 hours, PRN Nausea & Vomiting, # 20 tablet, 0 Refills, Maintenance, 12/08/21 15:48:00 EDT, Tablet, [facility]/pharmacy #[id number], Partial fill upon patient request if the prescription is for a schedule II opioid drug., 165, cm,... Start Date: 12/08/21 Status: Ordered Zomig 5 mg oral tablet [...] tumor NOS Confirmed Active Meningioma Confirmed Active Vital Signs Most recent to oldest [Reference Range]: 1 2 3 Height 165 cm (01/21/23 3:29 PM) 165 cm (01/09/23 11:16 AM) 165 cm (12/21/22 2:42 PM) Weight 71.9 kg (01/09/23 11:16 AM) 73.6 kg (09/26/22 11:25 AM) Oxygen Saturation [94-100 %] 95 % (01/09/23 11:16 AM) 98 % (09/26/22 11:25 AM) 100 % (09/26/22 10:30 AM) Pulse Rate [55-90 bpm] 68 bpm (01/09/23 11:16 AM) 82 bpm (09/26/22 11:25 AM) 79 bpm (09/26/22 10:30 AM) Body Mass Index [18.5-24.99 kg/m2] 26.41 kg/m2 *H* (01/09/23 11:16 AM) 27.03 kg/m2 *H* (09/26/22 11:25 AM) Blood Pressure [90-138/55-84 mm Hg] 111/84mm Hg (01/09/23 11:16 AM) 115/65mm Hg (09/26/22 11:25 AM) 113/54mm Hg (09/26/22 10:30 AM) Temperature [96.8-100.4 DegF] 98.5 DegF (01/09/23 11:16 AM) 98.4 DegF (09/26/22 11:25 AM) 96.8 DegF (09/26/22 10:30 AM) Mode of Delivery (Oxygen) Room air (09/26/22 11:25 AM) Room air (09/26/22 10:30 AM) Blood pressure sites Arm, right (01/09/23 11:16 AM) Arm, right (09/26/22 11:25 AM) Arm, right (09/26/22 10:30 AM) Temperature Route Oral (01/21/23 3:29 PM) Oral (01/09/23 11:16 AM) Oral (12/21/22 2:42 PM) Dry Weight 71.9 kg (01/09/23 11:16 AM) 73.6 kg (09/26/22 11:25 AM) Weight Obtained Via Standing scale (01/09/23 11:16 AM) Standing scale (09/26/22 11:25 AM) Dry Weight Obtained Via Standing scale (01/09/23 11:16 AM) Standing scale (09/26/22 11:25 AM) Social History Social History Type Response Smoking Status Former smoker entered on: 12/10/14 Sex Note * Alpa Garay MA: PERFORM, SIGN, VERIFY Event Display: Patient Education/Instruction Authored Date: [id number] [facility] *Heme/Onc Adult Clinical Summary Name MELIDA LAZCANO Age 77 Years 1945 PCP Chen Pop MD PCP [facility]# [id number] Visit Date 08/22/2022 14:16:00 Additional Instructions: Scheduled Appointments?? Future Appointments ?No Future Appointments Scheduled Follow-Up Instructions ?? With: Address: When: Dorothy Dejesus [address] [place] [id number] Business (1) 05/22/2023 11:00 AM With: Address: When: Dorothy Dejesus [address] 01/09/2023 10:30 AM Diagnosis Medications: Please continue your medications until treatment is completed or stopped by your provider. Discuss any questions related to medications with your provider. New Medications [facility]/pharmacy #[id number], [address] [place] [id number], [phone] PROCHLORperazine (prochlorperazine 5 mg oral tablet) 1-2 tablet Oral every 6 hours as needed Nausea. Refills: 1. Next Dose: Medications to Continue Taking That Have Changed [facility], [address], [place] [id number], [phone] - ixazomib (ixazomib 3 mg oral capsule) 1 capsule Oral every 7 days. on day 1, 8 and 15 of a 28-daycycle. Refills: 0. Next Dose: - ixazomib (ixazomib 3 mg oral capsule) 1 capsule Oral every 7 days. on day 1, 8 and 15 of a 28-daycycle. Refills: 0. Next Dose: These medications were not printed or sent to your pharmacy - Acyclovir (acyclovir 400 mg oral tablet) 1 tab(s) Oral twice a day. Refills: 2. Next Dose: - ixazomib (ixazomib 3 mg oral capsule) 1 capsule Oral every 7 days. on day 1, 8 and 15 of a 28-daycycle. Refills: 0. Next Dose: Medications to Continue with No Changes These medications were not printed or sent to your pharmacy Acetaminophen (Tylenol Caplet Extra Strength 500 mg oral tablet) 2 tab(s) Oral every 6 hours. Next Dose: Aspirin (Aspirin Low Dose 81 mg oral delayed release tablet) 1 tab(s) Oral Daily. Refills: 3. Next Dose: Cholecalciferol (Vitamin D3 1000 intl units oral capsule) 1 capsule Oral Daily. Refills: 0. Next Dose: Docusate (docusate sodium 100 mg oral tablet) 2 tab(s) Oral twice a day as needed for constipation. Next Dose: Docusate-Senna (Senna Plus 50 mg-8.6 mg oral tablet) 2 tab(s) Oral Daily at Bedtime as needed Constipation. Refills: 3. Next Dose: Estradiol Topical (Vagifem 10 mcg vaginal tablet) Vaginally Daily at Bedtime. Next Dose: Gabapentin (gabapentin 300 mg oral capsule) 2 capsule Oral Daily at Bedtime. Refills: 0. Next Dose: Hyoscyamine 0.375 Milligram Oral every 12 hours. Next Dose: Lidocaine Topical (Lidocaine 5% Topical) Topically as needed as needed for mouth sore pain. Next Dose: Melatonin (melatonin 3 mg oral tablet) 3 Milligram Oral Daily at Bedtime. Refills: 0. Next Dose: nirmatrelvir-ritonavir (Paxlovid 150 mg-100 mg (150 mg-100 mg Dose) oral tablet) Nirmatrelvir 150 mg and ritonavir 100 mg twice daily for 5 days. Refills: 0. Next Dose: [place]-3 Polyunsaturated Fatty Acids (Fish Oil 1000 mg oral capsule) 1 capsule Oral Daily. Next Dose: Ondansetron (Zofran 4 mg oral tablet) 1 tab(s) Oral every 8 hours as needed Nausea & Vomiting. Refills: 0. Next Dose: Pantoprazole (pantoprazole 40 mg oral delayed release tablet) 1 tab(s) Oral Daily for 30 Days. Refills: 0. Next Dose: Polyethylene Glycol 3350 (MiraLax oral powder for reconstitution) 17 gram Oral Daily as needed Constipation. dissolve in water before taking. Refills: 1. Next Dose: Propranolol (propranolol 40 mg oral tablet) 0.5 tab(s) Oral Daily. Next Dose: Raloxifene (Evista 60 mg oral tablet) 1 tab(s) Oral Daily. Next Dose: Ropinirole (rOPINIRole 0.5 mg oral tablet) 1 tab(s) Oral twice a day. Next Dose: Senna (Senna 8.6 mg oral tablet) 2 tab(s) Oral Daily at Bedtime as needed for constipation. Refills: 0. Next Dose: Sulfamethoxazole/Trimethoprim (Bactrim 400 mg-80 mg oral tablet) 1 tab(s) Oral Saturday, Saturday and Saturday. Refills: 1. Next Dose: Trazodone (traZODone 50 mg oral tablet) 0.5 tab(s) Oral Daily at Bedtime. Next Dose: Zolmitriptan (Zomig 5 mg oral tablet) 1 tab(s) Oral Daily as needed for migraine headache. may repeat dose after 2 hours up to a maximum of 1. Next Dose: Allergy Info:?? NKA Medications Given This Visit Medication Dose Route denosumab (Denosumab Inj) 120 mg Subcutaneous Injection denosumab (Denosumab Inj) 120 mg Subcutaneous Injection denosumab (Denosumab Inj) 120 mg Subcutaneous Injection denosumab (Denosumab Inj) 120 mg Subcutaneous Injection denosumab (Denosumab Inj) 120 mg Subcutaneous Injection Future Orders ?No future orders Vital Signs Height 165 cm Weight 71.9 kg BMI 26.41 kg/m2 Blood Pressure 111 mm Hg/84 mm Hg Temperature 98.5 DegF Pulse Rate 68 bpm Respiratory Rate 02 Sat Mode of Delivery 95 %/Room air You can now view a summary of your hospital visit from the comfort of your home through a free online portal called [employer] is a website that allows you to securely view your medical information including discharge summary, medications and follow-up visits. ??You can alsosend a secure electronic message to your doctor???s office to request appointments, renew medications or just ask a question. You can enroll at [email or web address] or register during your next office visit. Disclaimer:?? The information provided is of a general nature and is intended to be used in conjunction with the recommendations and advice of your health care practitioner. ??Every effort has been made to ensure that the information provided is accurate and complete at the time it is provided to you however, as your needs change, or, as new ??information becomes available, different or additional instructions may be required. If you have questions, please consult with your primary care provider or pharmacist, as appropriate. ??This information is not intended to serve as substitution for assessment and evaluation by a qualified health care provider. If you do not have a primary care provider, you may find a [facility] provider by calling [facility] [employer] at [phone]. For information about the plan of care including goals and instructions for your diagnosis, please see the patient education orders section of this document. Patient Education Materials?? The content of this educational material or handout may have been modified, supplemented, or adapted from its original content and format to support your individualized medical care. * Zoltan Mahoney MA: PERFORM, SIGN, VERIFY Event Display: Patient Education/Instruction Authored Date: [id number] [facility] *Heme/Onc Adult Clinical Summary Name MELIDA LAZCANO Age 76 Years 1945 PCP Chen Pop MD PCP Visit Date 08/22/2022 14:16:00 Additional Instructions: Scheduled Appointments?? Future Appointments ?No Future Appointments Scheduled Follow-Up Instructions ?? With: Address: When: Dorothy Anjelica ROJAS, [address] [place] [address] 01/09/2023 10:30 AM Diagnosis Medications: Please continue your medications until treatment is completed or stopped by your provider. Discuss any questions related to medications with your provider. New Medications [facility]/pharmacy #[id number], [address] [place] [id number], [phone] PROCHLORperazine (prochlorperazine 5 mg oral tablet) 1-2 tablet Oral every 6 hours as needed Nausea. Refills: 1. Next Dose: Medications to Continue with No Changes [facility], [address], [place] [id number], [phone] ixazomib (ixazomib 3 mg oral capsule) 1 capsule Oral every 7 days. on day 1, 8 and 15 of a 28-day cycle. Refills: 0. Next Dose: These medications were not printed or sent to your pharmacy Acetaminophen (Tylenol Caplet Extra Strength 500 mg oral tablet) 2 tab(s) Oral every 6 hours. Next Dose: Acyclovir (acyclovir 400 mg oral tablet) 1 tab(s) Oral twice a day. Refills: 2. Next Dose: Aspirin (Aspirin Low Dose 81 mg oral delayed release tablet) 1 tab(s) Oral Daily. Refills: 3. Next Dose: Cholecalciferol (Vitamin D3 1000 intl units oral capsule) 1 capsule Oral Daily. Refills: 0. Next Dose: Docusate (docusate sodium 100 mg oral tablet) 2 tab(s) Oral twice a day as needed for constipation. Next Dose: Docusate-Senna (Senna Plus 50 mg-8.6 mg oral tablet) 2 tab(s) Oral Daily at Bedtime as needed Constipation. Refills: 3. Next Dose: Estradiol Topical (Vagifem 10 mcg vaginal tablet) Vaginally Daily at Bedtime. Next Dose: Gabapentin (gabapentin 300 mg oral capsule) 2 capsule Oral Daily at Bedtime. Refills: 0. Next Dose: Hyoscyamine 0.375 Milligram Oral every 12 hours. Next Dose: ixazomib (ixazomib 3 mg oral capsule) 1 capsule Oral every 7 days. on day 1, 8 and 15 of a 28-day cycle. Refills: 0. Next Dose: Lidocaine Topical (Lidocaine 5% Topical) Topically as needed as needed for mouth sore pain. Next Dose: Melatonin (melatonin 3 mg oral tablet) 3 Milligram Oral Daily at Bedtime. Refills: 0. Next Dose: nirmatrelvir-ritonavir (Paxlovid 150 mg-100 mg (150 mg-100 mg Dose) oral tablet) Nirmatrelvir 150 mg and ritonavir 100 mg twice daily for 5 days. Refills: 0. Next Dose: [place]-3 Polyunsaturated Fatty Acids (Fish Oil 1000 mg oral capsule) 1 capsule Oral Daily. Next Dose: Ondansetron (Zofran 4 mg oral tablet) 1 tab(s) Oral every 8 hours as needed Nausea & Vomiting. Refills: 0. Next Dose: Pantoprazole (pantoprazole 40 mg oral delayed release tablet) 1 tab(s) Oral Daily for 30 Days. Refills: 0. Next Dose: Polyethylene Glycol 3350 (MiraLax oral powder for reconstitution) 17 gram Oral Daily as needed Constipation. dissolve in water before taking. Refills: 1. Next Dose: Propranolol (propranolol 40 mg oral tablet) 0.5 tab(s) Oral Daily. Next Dose: Raloxifene (Evista 60 mg oral tablet) 1 tab(s) Oral Daily. Next Dose: Ropinirole (rOPINIRole 0.5 mg oral tablet) 1 tab(s) Oral twice a day. Next Dose: Senna (Senna 8.6 mg oral tablet) 2 tab(s) Oral Daily at Bedtime as needed for constipation. Refills: 0. Next Dose: Sulfamethoxazole/Trimethoprim (Bactrim 400 mg-80 mg oral tablet) 1 tab(s) Oral Saturday, Saturday and Saturday. Refills: 1. Next Dose: Trazodone (traZODone 50 mg oral tablet) 0.5 tab(s) Oral Daily at Bedtime. Next Dose: Zolmitriptan (Zomig 5 mg oral tablet) 1 tab(s) Oral Daily as needed for migraine headache. may repeat dose after 2 hours up to a maximum of 1. Next Dose: Allergy Info:?? NKA Medications Given This Visit Medication Dose Route denosumab (Denosumab Inj) 120 mg Subcutaneous Injection denosumab (Denosumab Inj) 120 mg Subcutaneous Injection Future Orders ?No future orders Vital Signs Height 165 cm Weight 73.6 kg BMI 27.03 kg/m2 Blood Pressure 115 mm Hg/65 mm Hg Temperature 98.4 DegF Pulse Rate 82 bpm Respiratory Rate 02 Sat Mode of Delivery 98 %/Room air You can now view a summary of your hospital visit from the comfort of your home through a free online portal called [employer] is a website that allows you to securely view your medical information including discharge summary, medications and follow-up visits. ??You can alsosend a secure electronic message to your doctor???s office to request appointments, renew medications or just ask a question. You can enroll at [email or web address] or register during your next office visit. Disclaimer:?? The information provided is of a general nature and is intended to be used in conjunction with the recommendations and advice of your health care practitioner. ??Every effort has been made to ensure that the information provided is accurate and complete at the time it is provided to you however, as your needs change, or, as new ??information becomes available, different or additional instructions may be required. If you have questions, please consult with your primary care provider or pharmacist, as appropriate. ??This information is not intended to serve as substitution for assessment and evaluation by a qualified health care provider. If you do not have a primary care provider, you may find a [facility] provider by calling [facility] at [phone]. For information about the plan of care including goals and instructions for your diagnosis, please see the patient education orders section of this document. Patient Education Materials?? The content of this educational material or handout may have been modified, supplemented, or adapted from its original content and format to support your individualized medical care. Patient Care team information Care Team Personnel Name: Sophia Khanna Position: [facility] Onco RN Member Role: Primary Care Nurse Name: Chen Pop MD Position: [facility] Physician - Primary Care Member Role: PCP Address: Address: [address] [place] [address]- Name: Eli Layton RN Position: [facility] RN Member Role: Primary Care Nurse Name: Cony Hernández RN Position: [facility] Onco RN Member Role: Primary Care Nurse Name: Torri Manley Position: [facility] RN Member Role: Primary Care Nurse Name: Jerman Bain MD Position: [facility] Renal MD Member Role: [employer] Consult[employer] Physician Address: Address: [address] [place] [address] [address] [facility], [place] [address]- Name: Jd Estrella RN Position: [facility] Onco RN Member Role: Primary Care Nurse Name: Binta Pena RN Position: [facility] Onco RN Member Role: Primary Care Nurse Name: Chantel Hyde RN, I Position: S RN Member Role: Primary Care Nurse Care Team Related Persons Name: IDA MARSHALL Address: [address] [place] [address] Name: ARMANDO MARSHALL
--- OUTSIDE RECORDS SUMMARY | 2023-09-11 06:52 | XMS_ITS | Continuity of Care Document ---
Author Name Unknown Organization [facility] Address [address] [place] [id number]- Care Team Providers Care Mines Inspector Name Role Phone Chen Pop MD [id number] Date[facility] - 05/04/23 [facility] Care [address] [place] [id number]- Allergies, Adverse Reactions, Alerts No Known Allergies [...] tablet, 2 Refills, Maintenance, 10/15/22 8:14:00 EST, [facility] STORE [id number], 165, cm, 09/26/22 13:12:00 EST, Height, 73.6, kg, 09/26/22 11:25:00 EST, Dry Weight Start Date: 10/15/22 Status: Ordered Aspirin Low Dose 81 mg oral delayed release tablet 1 tablet, By Mouth, Daily, # 90 tablet, 3 Refills, Maintenance, 06/27/22 7:48:00 EDT, [facility] STORE 01243, 165, cm, 06/01/22 14:30:00 EDT, Height, 70.5, kg, 05/23/22 12:06:00 EDT, Dry Weight Start Date: 06/27/22 Status: Ordered Bactrim 400 mg-80 mg oral tablet 1 tablet, By Mouth, Every Saturday, Saturday and Saturday, # 45 tablet, 1 Refills, Maintenance, 05/03/21 17:11:00 EDT, [facility]/pharmacy #[id number], Partial fill upon patient request if [...] tablet, 1 Refills, Maintenance, 02/18/23 11:17:00 EDT, [facility] STORE [id number], 165, cm, 01/21/23 15:29:00 EDT, Height, 71.9, [...] Maintenance, 06/27/22 8:11:00 EDT,Route to Pharmacy Electronically, [facility] STORE [id number], 165, cm, 06/01/22 14:30:00 EDT, Height, 70.5, [...] 0 Refills, Maintenance, 03/11/23 14:02:00 EDT, Capsule, [facility], Partial fill upon patient request if the prescription is for a schedule I... Start Date: 03/11/23 Status: Ordered ixazomib 3 mg oral capsule 1 capsule = 3 mg, By Mouth, Every 7 days, on day 1, 8 and 15 of a 28-day cycle, # 3 capsule, 0 Refills, Maintenance, 05/03/23 17:53:00 EDT, Capsule, [facility], Partial fill upon patient request if the prescription is for a schedule I... Start Date: 05/03/23 Status: Ordered ixazomib 3 mg oral capsule 1 capsule = 3 mg, By Mouth, Every 7 days, on day 1, 8 and 15 of a 28-day cycle, # 3 capsule, 0 Refills, Maintenance, 02/20/23 18:49:00 EDT, Capsule, [facility], Partial fill upon patient request if the prescription is for a schedule I... Start Date: 02/20/23 Status: Ordered ixazomib 3 mg oral capsule 1 capsule = 3 mg, By Mouth, Every 7 days, on day 1, 8 and 15 of a 28-day cycle, # 3 capsule, 0 Refills, Maintenance, 08/16/22 18:15:00 EST, Capsule, [facility], Partial fill upon patient request if the prescription is for a schedule I... Start Date: 08/16/22 Status: Ordered ixazomib 3 mg oral capsule 1 capsule = 3 mg, By Mouth, Every 7 days, on day 1, 8 and 15 of a 28-day cycle, # 3 capsule, 0 Refills, Maintenance, 11/16/22 17:54:00 EST, Capsule, [facility], Partial fill upon patient request if the prescription is for a schedule I... Start Date: 11/16/22 Status: Ordered Lidocaine 5% Topical Topically, PRN as needed for mouth sore pain, 0 Refills, Maintenance Start Date: 10/08/13 Status: Ordered melatonin 3 mg oral tablet = 3 mg, By Mouth, Daily at bedtime, # 60 tablet, 0 Refills, Maintenance, 05/03/21 12:35:00 EDT, Tablet, [facility], Partial fill upon patient request if the prescription is for a schedule II opioid drug., 165, cm, 05/03/21 7:51:00 EDT, H... Start Date: 05/03/21 Status: Ordered MiraLax oral powder for reconstitution = 17 Gm, By Mouth, Daily, PRN Constipation, dissolve in water before taking, # 527 Gm, 1 Refills, Maintenance, 07/30/22 16:13:00 EST, REC Powder, [facility]/pharmacy #[id number], Partial fill upon patient requestif the [...] tablet, 0 Refills, Maintenance, 03/24/22 12:41:00 EDT, [facility]/pharmacy #[id number], Partial fill upon patient request ifthe prescription is for a schedule II opioid drug.... Start Date: 03/24/22 Status: Ordered prochlorperazine 5 mg oral tablet 1-2 tablet, By Mouth, Every 6 hours, PRN Nausea, # 60 tablet, 1 Refills, Maintenance, 08/30/22 15:54:00 EST, [facility]/pharmacy #[id number], Partial fill upon patient request if [...] 05/08/21 12:51:00 EDT, Route to Pharmacy Electronically, [facility]/pharmacy #[id number] Tablet, Partial fill upon patient request if the p... Start Date: 05/08/21 Status: Ordered Senna Plus 50 mg-8.6 mg oral tablet 2 tablet, By Mouth, Daily at bedtime, PRN Constipation, # 60 tablet, 3 Refills, Maintenance, 06/30/21 14:45:00 EDT, Tablet, [facility]/pharmacy #[id number], Partial fill upon patient request if the prescription is for a schedule II opioid drug., 2 tablet By Mouth... Start Date: 06/30/21 Status: Ordered traMADol 50 mg oral tablet 0.5 tablet = 25 mg, By Mouth, Every 8 hours, # 12 tablet, 0 Refills, Maintenance, 04/04/23 15:45:00EDT, [facility]/pharmacy #[id number], Partial fill upon patient request if the prescription is for a schedule IIopioid drug., 165, cm, 04/04/23 15:15:00 EDT, [facility]... Start Date: 04/04/23 Status: Ordered traZODone 50 mg oral tablet [...] 0 Refills, Maintenance, 05/03/21 12:36:00 EDT, Capsule, [facility], Partial fill upon patient request if the prescription is for a schedule II opioid drug., 165, cm, 05/03/21 7:51:00 ED... Start Date: 05/03/21 Status: Ordered Zofran 4 mg oral tablet 1 tablet = 4 mg, By Mouth, Every 8 hours, PRN Nausea & Vomiting, # 20 tablet, 0 Refills, Maintenance, 12/08/21 15:48:00 EDT, Tablet, [facility]/pharmacy #[id number], Partial fill upon patient request if [...] Care Team Personnel Name: Sophia Khanna Position: [facility] Onco RN Member Role: Primary Care Nurse Name: Chen Pop MD Position: [facility] Physician - Primary Care Member Role: PCP Address: Address: [address] [place] [address]- Name: Eli Layton RN Position: [facility] RN Member Role: Primary Care Nurse Name: Cony Hernández RN Position: [facility] Onco RN Member Role: Primary Care Nurse Name: Torri Manley Position: [facility] RN Member Role: Primary Care Nurse Name: Jerman Bain MD Position: [facility] Renal MD Member Role: Lifetime Consulting Physician Address: Address: [address] [facility] [place] [address]- Name: Jd Estrella RN Position: [facility] Onco RN Member Role: Primary Care Nurse Name: Binta Pena RN Position: [facility] Onco RN Member Role: Primary Care Nurse Name: Chantel Hyde RN, I Position: [facility] RN Member Role: Primary Care Nurse Care Team Related Persons Name: IDA MARSHALL Address: home [address] [place] [address] Name: ARMANDO MARSHALL
--- OUTSIDE RECORDS SUMMARY | 2023-09-11 06:52 | XMS_ITS | Continuity of Care Document ---
Author Name Unknown Organization [facility] Address [address] [place] [address]- Care Team Providers Care Supervisor [employer] Name Role Phone Chen Pop MD Primary Care Physician [phone] [id number] Date(s): 07/22/23 - 08/21/23 [facility] [address] [place] [address]- Allergies, Adverse Reactions, Alerts No Known Allergies [...] tablet, 2 Refills, Maintenance, 05/27/23 5:20:00 EDT, [id number], 165, cm, 05/22/23 9:30:00 EDT, Height, 70.6, kg, 05/22/23 9:30:00 EDT, Dry Weight Start Date: 05/27/23 Status: Ordered Aspirin Low Dose 81 mg oral delayed release tablet 1 tablet, By Mouth, Daily, # 90 tablet, 3 Refills, Maintenance, 06/27/22 7:48:00 EDT, [facility] STORE 75430, 165, cm, 06/01/22 14:30:00 EDT, Height, 70.5, [...] Maintenance, 06/27/22 8:11:00 EDT,Route to Pharmacy Electronically, [facility] STORE [id number], 165, cm, 06/01/22 14:30:00 EDT, Height, 70.5, kg, 05/23/22 12:06:00 EDT, Dry Weight Start Date: 06/27/22 Status: Ordered ixazomib 3 mg oral capsule 1 capsule = 3 mg, By Mouth, Every 7 days, on day 1, 8 and 15 of a 28-day cycle, # 3 capsule, 0 Refills, Maintenance, 06/02/23 20:32:00 EDT, Capsule, [facility], Partial fill upon patient request if the prescription is for a schedule I... Start Date: 06/02/23 Status: Ordered ixazomib 3 mg oral capsule 1 capsule = 3 mg, By Mouth, Every 7 days, on day 1, 8 and 15 of a 28-day cycle, # 3 capsule, 0 Refills, Maintenance, 03/11/23 14:02:00 EDT, Capsule, [facility], Partial fill upon patient request if the prescription is for a schedule I... Start Date: 03/11/23 Status: Ordered ixazomib 3 mg oral capsule 1 capsule = 3 mg, By Mouth, Every 7 days, on day 1, 8 and 15 of a 28-day cycle, # 3 capsule, 0 Refills, Maintenance, 07/26/23 16:51:00 EST, Capsule, [facility], Partial fill upon patient request if the prescription is for a schedule I... Start Date: 07/26/23 Status: Ordered ixazomib 3 mg oral capsule 1 capsule = 3 mg, By Mouth, Every 7 days, on day 1, 8 and 15 of a 28-day cycle, # 3 capsule, 0 Refills, Maintenance, 05/03/23 17:53:00 EDT, Capsule, [facility], Partial fill upon patient request if the prescription is for a schedule I... Start Date: 05/03/23 Status: Ordered ixazomib 3 mg oral capsule 1 capsule = 3 mg, By Mouth, Every 7 days, on day 1, 8 and 15 of a 28-day cycle, # 3 capsule, 0 Refills, Maintenance, 02/20/23 18:49:00 EDT, Capsule, [facility], Partial fill upon patient request if the prescription is for a schedule I... Start Date: 02/20/23 Status: Ordered ixazomib 3 mg oral capsule 1 capsule = 3 mg, By Mouth, Every 7 days, on day 1, 8 and 15 of a 28-day cycle, # 3 capsule, 0 Refills, Maintenance, 08/16/22 18:15:00 EST, Capsule, [facility], Partial fill upon patient request if the prescription is for a schedule I... Start Date: 08/16/22 Status: Ordered ixazomib 3 mg oral capsule 1 capsule = 3 mg, By Mouth, Every 7 days, on day 1, 8 and 15 of a 28-day cycle, # 3 capsule, 0 Refills, Maintenance, 11/16/22 17:54:00 EST, Capsule, [facility], Partial fill upon patient [...] 0 Refills, Maintenance, 05/03/21 12:35:00 EDT, Tablet, [facility], Partial fill upon patient request if the prescription is for a schedule II opioid drug., 165, cm, 05/03/21 7:51:00 EDT, H... Start Date: 05/03/21 Status: Ordered MiraLax oral powder for reconstitution = 17 Gm, By Mouth, Daily, PRN Constipation, dissolve in water before taking, # 527 Gm, 1 Refills, Maintenance, 07/30/22 16:13:00 EST, REC Powder, [facility]/pharmacy #[id number], Partial fill upon patient requestif [...] Ordered prochlorperazine 5 mg oral tablet 1-2 TABLETS, By Mouth, Every 6 hours, PRN NEEDED FOR NAUSEA, # 60 tablet, 1 Refills, Maintenance, 08/19/23 8:20:00 EST, [facility] STORE [id number], 165, cm, 08/14/23 10:00:00 EST, Height, 71, kg, 08/14/23 10:00:00 EST, Dry Weight Start Date: 08/19/23 Status: Ordered rOPINIRole 0.5 mg oral tablet [...] 05/08/21 12:51:00 EDT, Route to Pharmacy Electronically, [facility]/pharmacy #[id number] Tablet, Partial fill upon patient [...] 0 Refills, Maintenance, 05/03/21 12:36:00 EDT, Capsule, [facility], Partial fill upon patient [...] Care Team Personnel Name: Sophia Khanna Position: [facility] Onco RN Member Role: Primary Care Nurse Name: Chen Pop MD Position: [facility] Physician - Primary Care Member Role: PCP Address: Address: [address] [place] [address]- [place] Name: Eli Layton RN Position: [facility] RN Member Role: Primary Care Nurse Name: Cony Hernández RN Position: [facility] Onco RN Member Role: Primary Care Nurse Name: Torri Manley Position: [facility] RN Member Role: Primary Care Nurse Name: Jerman Bain MD Position: [facility] Renal MD Member Role: Lifetime Consulting Physician Address: Address: [address] [facility] [facility] [address] [facility] [place] [address]- [place] Name: Jd Estrella RN Position: [facility] Onco RN Member Role: Primary Care Nurse Name: Binta Pena RN Position: [facility] Onco RN Member Role: Primary Care Nurse Name: Chantel Hyde RN, I Position: [facility] RN Member Role: Primary Care Nurse Care Team Related Persons Name: IDA MARSHALL Address: [address] [place] [address] Name: ARMANDO MARSHALL
--- OUTSIDE RECORDS SUMMARY | 2023-09-11 06:52 | XMS_ITS | Continuity of Care Document ---
Author Name Unknown Organization [facility] Address [address] [place] [id number]- Care Team Providers Care Animator Name Role Phone Chen Pop MD Primary Care Physician Encounter [facility] Date(s): 04/04/23 - 05/04/23 [facility] [address] [place] [id number] Attending Physician: Ethan Griffith Admitting Physician: Ethan Griffith Referring Physician: AdmEthan pope Allergies, Adverse Reactions, Alerts No Known Allergies [...] Refills, Maintenance, 10/15/22 8:14:00 EST, [facility], 165, cm, 09/26/22 13:12:00 EST, Height, 73.6, kg, 09/26/22 11:25:00 EST, Dry Weight Start Date: 10/15/22 Status: Ordered Aspirin Low Dose 81 mg oral delayed release tablet 1 tablet, By Mouth, Daily, # 90 tablet, 3 Refills, Maintenance, 06/27/22 7:48:00 EDT, [facility] STORE 79563, 165, cm, 06/01/22 14:30:00 EDT, Height, 70.5, kg, 05/23/22 12:06:00 EDT, Dry Weight Start Date: 06/27/22 Status: Ordered Bactrim 400 mg-80 mg oral tablet 1 tablet, By Mouth, Every Saturday, Saturday and Saturday, # 45 tablet, 1 Refills, Maintenance, 05/03/21 17:11:00 EDT, [facility]/pharmacy #[id number], Partial fill upon patient request [...] Refills, Maintenance, 02/18/23 11:17:00 EDT, [facility], 165, cm, 01/21/23 15:29:00 EDT, Height, 71.9, [...] 8:11:00 EDT,Route to Pharmacy Electronically, [facility], 165, cm, 06/01/22 14:30:00 EDT, Height, 70.5, [...] 0 Refills, Maintenance, 03/11/23 14:02:00 EDT, Capsule, [facility], Partial fill upon patient request if the prescription is for a schedule I... Start Date: 03/11/23 Status: Ordered ixazomib 3 mg oral capsule 1 capsule = 3 mg, By Mouth, Every 7 days, on day 1, 8 and 15 of a 28-day cycle, # 3 capsule, 0 Refills, Maintenance, 05/03/23 17:53:00 EDT, Capsule, [facility], Partial fill upon patient request if the prescription is for a schedule I... Start Date: 05/03/23 Status: Ordered ixazomib 3 mg oral capsule 1 capsule = 3 mg, By Mouth, Every 7 days, on day 1, 8 and 15 of a 28-day cycle, # 3 capsule, 0 Refills, Maintenance, 02/20/23 18:49:00 EDT, Capsule, [facility], Partial fill upon patient request if the prescription is for a schedule I... Start Date: 02/20/23 Status: Ordered ixazomib 3 mg oral capsule 1 capsule = 3 mg, By Mouth, Every 7 days, on day 1, 8 and 15 of a 28-day cycle, # 3 capsule, 0 Refills, Maintenance, 08/16/22 18:15:00 EST, Capsule, [facility], Partial fill upon patient request if the prescription is for a schedule I... Start Date: 08/16/22 Status: Ordered ixazomib 3 mg oral capsule 1 capsule = 3 mg, By Mouth, Every 7 days, on day 1, 8 and 15 of a 28-day cycle, # 3 capsule, 0 Refills, Maintenance, 11/16/22 17:54:00 EST, Capsule, [facility], Partial fill upon patient request if the prescription is for a schedule I... Start Date: 3/10/23 Status: Ordered Lidocaine 5% Topical Topically, PRN as needed for mouth sore pain, 0 Refills, Maintenance Start Date: 10/08/13 Status: Ordered melatonin 3 mg oral tablet = 3 mg, By Mouth, Daily at bedtime, # 60 tablet, 0 Refills, Maintenance, 05/03/21 12:35:00 EDT, Tablet, [facility], Partial fill upon patient request if the prescription is for a schedule II opioid drug., 165, cm, 05/03/21 7:51:00 EDT, H... Start Date: 05/03/21 Status: Ordered MiraLax oral powder for reconstitution = 17 Gm, By Mouth, Daily, PRN Constipation, dissolve in water before taking, # 527 Gm, 1 Refills, Maintenance, 07/30/22 16:13:00 EST, REC Powder, [facility]/pharmacy #[id number], Partial fill upon patient requestif [...] tablet, 0 Refills, Maintenance, 03/24/22 12:41:00 EDT, [id number], Partial fill upon patient request ifthe prescription is for a schedule II opioid drug.... Start Date: 03/24/22 Status: Ordered prochlorperazine 5 mg oral tablet 1-2 tablet, By Mouth, Every 6 hours, PRN Nausea, # 60 tablet, 1 Refills, Maintenance, 08/30/22 15:54:00 EST, [id number], Partial fill upon patient request if [...] 05/08/21 12:51:00 EDT, Route to Pharmacy Electronically, [facility]/pharmacy #[id number] Tablet, Partial fill upon patient request if the p... Start Date: 05/08/21 Status: Ordered Senna Plus 50 mg-8.6 mg oral tablet 2 tablet, By Mouth, Daily at bedtime, PRN Constipation, # 60 tablet, 3 Refills, Maintenance, 06/30/21 14:45:00 EDT, Tablet, [facility]/pharmacy #[id number], Partial fill upon patient request if the prescription is for a schedule II opioid drug., 2 tablet By Mouth... Start Date: 06/30/21 Status: Ordered traMADol 50 mg oral tablet 0.5 tablet = 25 mg, By Mouth, Every 8 hours, # 12 tablet, 0 Refills, Maintenance, 04/04/23 15:45:00EDT, [facility]/pharmacy #[id number], Partial fill upon patient request if the prescription is for a schedule IIopioid drug., 165, cm, 04/04/23 15:15:00 EDT, [place]... Start Date: 04/04/23 Status: Ordered traZODone 50 [...] 0 Refills, Maintenance, 05/03/21 12:36:00 EDT, Capsule, [facility], Partial fill upon patient request if the prescription is for a schedule II opioid drug., 165, cm, 05/03/21 7:51:00 ED... Start Date: 05/03/21 Status: Ordered Zofran 4 mg oral tablet 1 tablet = 4 mg, By Mouth, Every 8 hours, PRN Nausea & Vomiting, # 20 tablet, 0 Refills, Maintenance, 12/08/21 15:48:00 EDT, Tablet, [facility]/pharmacy #[id number], Partial fill upon patient request [...] Status Former smoker entered on: 12/10/14 Sex Laboratory * Event Display: Non Lab Results Authored Date: * Event Display: Non Lab Results Authored Date: Patient Care team information Care Team Personnel Name: Sophia Khanna Position: [facility] Onco RN Member Role: Primary Care Nurse Name: Chen Pop MD Position: [facility] Physician - Primary Care Member Role: PCP Address: Address: [address] [place] [address]- [place] Name: Eli Layton RN Position: S RN Member Role: Primary Care Nurse Name: Cony Hernández RN Position: [facility] Onco RN Member Role: Primary Care Nurse Name: Torri Manley Position: [facility] RN Member Role: Primary Care Nurse Name: Jerman Bain MD Position: [facility] Renal MD Member Role: Lifetime Consulting Physician Address: Address: [address] [facility] [place] [address]- [place] Name: Jd Estrella RN Position: [facility] Onco RN Member Role: Primary Care Nurse Name: Binta Pena RN Position: [facility] Onco RN Member Role: Primary Care Nurse Name: Chantel Hyde RN, I Position: [facility] RN Member Role: Primary Care Nurse Care Team Related Persons Name: IDA MARSHALL Address: [address] [place] [address] Name: ARMANDO MARSHALL
--- OUTSIDE RECORDS SUMMARY | 2023-09-11 06:52 | XMS_ITS | Continuity of Care Document ---
Author Name Unknown Organization [facility] Address [address] [place] [address]- Care Team Providers Care Green Meat Grader Name Role Phone Chen Pop MD Primary Care Physician [id number] Date(s): 04/04/23 - 05/04/23 [facility] [address] [place] [address]- Allergies, Adverse Reactions, Alerts No Known Allergies [...] tablet, 2 Refills, Maintenance, 10/15/22 8:14:00 EST, [facility] 312[facility], 165, cm, 09/26/22 13:12:00 EST, Height, 73.6, kg, 09/26/22 11:25:00 EST, Dry Weight Start Date: 10/15/22 Status: Ordered Aspirin Low Dose 81 mg oral delayed release tablet 1 tablet, By Mouth, Daily, # 90 tablet, 3 Refills, Maintenance, 06/27/22 7:48:00 EDT, [facility] 21900, 165, cm, 06/01/22 14:30:00 EDT, Height, 70.5, kg, 05/23/22 12:06:00 EDT, Dry Weight Start Date: 06/27/22 Status: Ordered Bactrim 400 mg-80 mg oral tablet 1 tablet, By Mouth, Every Saturday, Saturday and Saturday, # 45 tablet, 1 Refills, Maintenance, 05/03/21 17:11:00 EDT, [facility]/pharmacy #[id number], Partial fill upon patient request if [...] tablet, 1 Refills, Maintenance, 02/18/23 11:17:00 EDT, [facility] 18939, 165, cm, 01/21/23 15:29:00 EDT, Height, 71.9, [...] Maintenance, 06/27/22 8:11:00 EDT,Route to Pharmacy Electronically, [facility] [id number], 165, cm, 06/01/22 14:30:00 EDT, Height, 70.5, [...] 0 Refills, Maintenance, 03/11/23 14:02:00 EDT, Capsule, [facility], Partial fill upon patient request if the prescription is for a schedule I... Start Date: 03/11/23 Status: Ordered ixazomib 3 mg oral capsule 1 capsule = 3 mg, By Mouth, Every 7 days, on day 1, 8 and 15 of a 28-day cycle, # 3 capsule, 0 Refills, Maintenance, 05/03/23 17:53:00 EDT, Capsule, [facility], Partial fill upon patient request if the prescription is for a schedule I... Start Date: 05/03/23 Status: Ordered ixazomib 3 mg oral capsule 1 capsule = 3 mg, By Mouth, Every 7 days, on day 1, 8 and 15 of a 28-day cycle, # 3 capsule, 0 Refills, Maintenance, 02/20/23 18:49:00 EDT, Capsule, [facility], Partial fill upon patient request if the prescription is for a schedule I... Start Date: 02/20/23 Status: Ordered ixazomib 3 mg oral capsule 1 capsule = 3 mg, By Mouth, Every 7 days, on day 1, 8 and 15 of a 28-day cycle, # 3 capsule, 0 Refills, Maintenance, 08/16/22 18:15:00 EST, Capsule, [facility], Partial fill upon patient request if the prescription is for a schedule I... Start Date: 08/16/22 Status: Ordered ixazomib 3 mg oral capsule 1 capsule = 3 mg, By Mouth, Every 7 days, on day 1, 8 and 15 of a 28-day cycle, # 3 capsule, 0 Refills, Maintenance, 11/16/22 17:54:00 EST, Capsule, [facility], Partial fill upon patient request if the prescription is for a schedule I... Start Date: 11/16/22 Status: Ordered Lidocaine 5% Topical Topically, PRN as needed for mouth sore pain, 0 Refills, Maintenance Start Date: 10/08/13 Status: Ordered melatonin 3 mg oral tablet = 3 mg, By Mouth, Daily at bedtime, # 60 tablet, 0 Refills, Maintenance, 05/03/21 12:35:00 EDT, Tablet, [facility], Partial fill upon patient request if the prescription is for a schedule II opioid drug., 165, cm, 05/03/21 7:51:00 EDT, H... Start Date: 05/03/21 Status: Ordered MiraLax oral powder for reconstitution = 17 Gm, By Mouth, Daily, PRN Constipation, dissolve in water before taking, # 527 Gm, 1 Refills, Maintenance, 07/30/22 16:13:00 EST, REC Powder, [facility]/pharmacy #[id number], Partial fill upon patient requestif the [...] tablet, 0 Refills, Maintenance, 03/24/22 12:41:00 EDT, [facility]/pharmacy #[id number], Partial fill upon patient request ifthe prescription is for a schedule II opioid drug.... Start Date: 03/24/22 Status: Ordered prochlorperazine 5 mg oral tablet 1-2 tablet, By Mouth, Every 6 hours, PRN Nausea, # 60 tablet, 1 Refills, Maintenance, 08/30/22 15:54:00 EST, [facility]/pharmacy #[id number], Partial fill upon patient request if [...] 05/08/21 12:51:00 EDT, Route to Pharmacy Electronically, [facility]/pharmacy #[id number] Tablet, Partial fill upon patient request if the p... Start Date: 05/08/21 Status: Ordered Senna Plus 50 mg-8.6 mg oral tablet 2 tablet, By Mouth, Daily at bedtime, PRN Constipation, # 60 tablet, 3 Refills, Maintenance, 06/30/21 14:45:00 EDT, Tablet, [facility]/pharmacy #[id number], Partial fill upon patient request if the prescription is for a schedule II opioid drug., 2 tablet By Mouth... Start Date: 06/30/21 Status: Ordered traMADol 50 mg oral tablet 0.5 tablet = 25 mg, By Mouth, Every 8 hours, # 12 tablet, 0 Refills, Maintenance, 04/04/23 15:45:00EDT, [facility]/pharmacy #[id number], Partial fill upon patient request if [...] 0 Refills, Maintenance, 05/03/21 12:36:00 EDT, Capsule, [facility], Partial fill upon patient request if the prescription is for a schedule II opioid drug., 165, cm, 05/03/21 7:51:00 ED... Start Date: 05/03/21 Status: Ordered Zofran 4 mg oral tablet 1 tablet = 4 mg, By Mouth, Every 8 hours, PRN Nausea & Vomiting, # 20 tablet, 0 Refills, Maintenance, 12/08/21 15:48:00 EDT, Tablet, [facility]/pharmacy #[id number], Partial fill upon patient request if [...] Care Team Personnel Name: Sophia Khanna Position: [facility] Onco RN Member Role: Primary Care Nurse Name: Chen Pop MD Position: [facility] Physician - Primary Care Member Role: PCP Address: Address: [address] [place] [address]- Name: Eli Layton RN Position: [facility] RN Member Role: Primary Care Nurse Name: Cony Hernández RN Position: [facility] Onco RN Member Role: Primary Care Nurse Name: Torri Manley Position: [facility] RN Member Role: Primary Care Nurse Name: Jerman Bain MD Position: [facility] Renal MD Member Role: Lifetime Consulting Physician Address: Address: [address] [facility] [address]- Name: Jd Estrella RN Position: [facility] Onco RN Member Role: Primary Care Nurse Name: Binta Pena RN Position: [facility] Onco RN Member Role: Primary Care Nurse Name: Chantel Hyde RN, I Position: [facility] RN Member Role: Primary Care Nurse Care Team Related Persons Name: IDA MARSHALL Address: home [address] [place] [address] Name: ARMANDO MARSHALL
--- OUTSIDE RECORDS SUMMARY | 2023-09-11 06:52 | XMS_ITS | Continuity of Care Document ---
Author Name Unknown Organization [facility] Address [address] [place] [address]- Care Team Providers Care Taxation Consultant Name Role Phone Chen Pop MD Primary Care Physician [phone] [id number]/04[facility] - 07/22/23 [facility] [address] [place] [address]- Discharge Disposition: A-D/C Home Attending Physician: Waldemar SHARP [facility] Admitting Physician: Alize Fuller Referring Physician: Chen Pop MD Allergies, Adverse [...] Refills, Maintenance, 05/27/23 5:20:00 EDT, [facility], 165, cm, 05/22/23 9:30:00 EDT, Height, 70.6, kg, 05/22/23 9:30:00 EDT, Dry Weight Start Date: 05/27/23 Status: Ordered Aspirin Low Dose 81 mg oral delayed release tablet 1 tablet, By Mouth, Daily, # 90 tablet, 3 Refills, Maintenance, 06/27/22 7:48:00 EDT, [facility], 165, cm, 06/01/22 14:30:00 EDT, Height, 70.5, [...] Maintenance, 06/27/22 8:11:00 EDT,Route to Pharmacy Electronically, [facility] [id number], 165, cm, 06/01/22 14:30:00 EDT, Height, 70.5, kg, 05/23/22 12:06:00 EDT, Dry Weight Start Date: 06/27/22 Status: Ordered ixazomib 3 mg oral capsule 1 capsule = 3 mg, By Mouth, Every 7 days, on day 1, 8 and 15 of a 28-day cycle, # 3 capsule, 0 Refills, Maintenance, 06/02/23 20:32:00 EDT, Capsule, [facility], Partial fill upon patient request if the prescription is for a schedule I... Start Date: 06/02/23 Status: Ordered ixazomib 3 mg oral capsule 1 capsule = 3 mg, By Mouth, Every 7 days, on day 1, 8 and 15 of a 28-day cycle, # 3 capsule, 0 Refills, Maintenance, 03/11/23 14:02:00 EDT, Capsule, [facility], Partial fill upon patient request if the prescription is for a schedule I... Start Date: 03/11/23 Status: Ordered ixazomib 3 mg oral capsule 1 capsule = 3 mg, By Mouth, Every 7 days, on day 1, 8 and 15 of a 28-day cycle, # 3 capsule, 0 Refills, Maintenance, 05/03/23 17:53:00 EDT, Capsule, [facility], Partial fill upon patient request if the prescription is for a schedule I... Start Date: 05/03/23 Status: Ordered ixazomib 3 mg oral capsule 1 capsule = 3 mg, By Mouth, Every 7 days, on day 1, 8 and 15 of a 28-day cycle, # 3 capsule, 0 Refills, Maintenance, 06/28/23 17:07:00 EDT, Capsule, [facility], Partial fill upon patient request if the prescription is for a schedule I... Start Date: 06/28/23 Status: Ordered ixazomib 3 mg oral capsule 1 capsule = 3 mg, By Mouth, Every 7 days, on day 1, 8 and 15 of a 28-day cycle, # 3 capsule, 0 Refills, Maintenance, 02/20/23 18:49:00 EDT, Capsule, [facility], Partial fill upon patient request if the prescription is for a schedule I... Start Date: 02/20/23 Status: Ordered ixazomib 3 mg oral capsule 1 capsule = 3 mg, By Mouth, Every 7 days, on day 1, 8 and 15 of a 28-day cycle, # 3 capsule, 0 Refills, Maintenance, 08/16/22 18:15:00 EST, Capsule, [facility], Partial fill upon patient request if the prescription is for a schedule I... Start Date: 08/16/22 Status: Ordered ixazomib 3 mg oral capsule 1 capsule = 3 mg, By Mouth, Every 7 days, on day 1, 8 and 15 of a 28-day cycle, # 3 capsule, 0 Refills, Maintenance, 11/16/22 17:54:00 EST, Capsule, [facility], Partial fill upon patient request if [...] 0 Refills, Maintenance, 05/03/21 12:35:00 EDT, Tablet, [facility], Partial fill upon patient request if the prescription is for a schedule II opioid drug., 165, cm, 05/03/21 7:51:00 EDT, H... Start Date: 05/03/21 Status: Ordered MiraLax oral powder for reconstitution = 17 Gm, By Mouth, Daily, PRN Constipation, dissolve in water before taking, # 527 Gm, 1 Refills, Maintenance, 07/30/22 16:13:00 EST, REC Powder, [facility]/pharmacy #[id number], Partial fill upon patient [...] tablet, 1 Refills, Maintenance, 08/30/22 15:54:00 EST, [facility]/pharmacy #[id number], Partial fill upon patient request [...] 05/08/21 12:51:00 EDT, Route to Pharmacy Electronically, [facility]/pharmacy #[id number] Tablet, Partial fill upon patient request if [...] 0 Refills, Maintenance, 05/03/21 12:36:00 EDT, Capsule, [facility], Partial fill upon patient request [...] Range]: 1 2 3 Height 165 cm (05/22/23 9:30 AM) 165 cm (04/18/23 2:59 PM) 165 cm (04/18/23 2:28 PM) Weight 70.6 kg (05/22/23 9:30 AM) 70.1 kg (04/18/23 1:20 PM) 70 kg (04/04/23 3:15 PM) Oxygen Saturation [94-100 %] 94 % (05/22/23 9:30 AM) 100 % (04/18/23 2:28 PM) 98 % (04/18/23 1:20 PM) Pulse Rate [55-90 bpm] 68 bpm (05/22/23 9:30 AM) 60 bpm (04/18/23 2:28 PM) 64 bpm (04/18/23 1:20 PM) Body Mass Index [18.5-24.99 kg/m2] 25.93 kg/m2 *H* (05/22/23 9:30 AM) 25.75 kg/m2 *H* (04/18/23 1:20 PM) 25.71 kg/m2 *H* (04/04/23 3:15 PM) Blood Pressure [90-138/55-84 mm Hg] 122/74mm Hg (05/22/23 9:30 AM) 147/83mm Hg *H* (04/18/23 2:28 PM) 140/74mm Hg *H* (04/18/23 1:20 PM) Temperature [96.8-100.4 DegF] 97.4 DegF (05/22/23 9:30 AM) 97.9 DegF (04/18/23 2:28 PM) 98.3 DegF (04/18/23 1:20 PM) Mode of Delivery (Oxygen) Room air (05/22/23 9:30 AM) Room air (04/18/23 2:28 PM) Room air (04/04/23 3:15 PM) Blood pressure sites Arm, right (05/22/23 9:30 AM) Arm, right (04/18/23 2:28 PM) Arm, right (04/18/23 1:20 PM) Temperature Route Temporal (05/22/23 9:30 AM) Temporal (04/18/23 2:59 PM) Temporal (04/18/23 2:28 PM) Dry Weight 70.6 kg (05/22/23 9:30 AM) 70.1 kg (04/18/23 1:20 PM) 70 kg (04/04/23 3:15 PM) Weight Obtained Via Standing scale (05/22/23 9:30 AM) Standing scale (04/04/23 3:15 PM) Dry Weight Obtained Via Standing scale (05/22/23 9:30 AM) Pediatric scale (04/04/23 3:15 PM) Social History Social History Type Response Smoking Status Former smoker entered on: 12/10/14 Sex Note * Samia Navarrete: PERFORM, SIGN, VERIFY Event Display: Patient Education/Instruction Authored Date: [id number] [facility] *Heme/Onc Adult Clinical Summary Name MELIDA LAZCANO Age 77 Years 1945 PCP Donn SHARP, Chen PCP Visit Date 04/04/2023 14:32:00 Additional Instructions: Scheduled Appointments?? Future Appointments ?No Future Appointments Scheduled Follow-Up Instructions ?? With: Address: When: Benny Estevez [address] [place] [address] Business (1) 08/11/2023 10:00 AM Diagnosis Medications: Please continue your medications until treatment is completed or stopped by your provider. Discuss any questions related to medications with your provider. New Medications [facility]/pharmacy #[id number], [address] [place] [id number], [phone] Tramadol (traMADol 50 mg oral tablet) 0.5 tab(s) Oral every 8 hours. Refills: 0. Next Dose: Medications to Continue Taking That Have Changed [facility], [facility] [place], [place] [id number], [phone] - ixazomib (ixazomib 3 mg oral capsule) 1 capsule Oral every 7 days. on day 1, 8 and 15 of a 28-daycycle. Refills: 0. Next Dose: These medications were not printed or sent to your pharmacy - ixazomib (ixazomib 3 mg oral capsule) [...] tablet) Vaginally Daily at Bedtime. Next Dose: Ferrous Sulfate (ferrous sulfate 325 mg oral tablet) 1 tab(s) Oral every other day for 30 Days. Refills: 1. Next Dose: Gabapentin (gabapentin 300 mg oral [...] for 5 days. Refills: 0. Next Dose: [place]-3 Polyunsaturated Fatty Acids (Fish Oil 1000 mg [...] water before taking. Refills: 1. Next Dose: PROCHLORperazine (prochlorperazine 5 mg oral tablet) 1-2 tablet Oral every 6 hours as needed Nausea. Refills: 1. Next Dose: Propranolol (propranolol 40 [...] orders Vital Signs Height 165 cm Weight 70.6 kg BMI 25.93 kg/m2 Blood Pressure 122 mm Hg/74 mm Hg Temperature 97.4 DegF Pulse Rate 68 bpm Respiratory Rate 02 Sat Mode of Delivery 94 %/Room air You can now view a summary of your hospital visit from the comfort of your home through a free online portal called [employer]. [employer] is a website that allows you to securely view your medical information including discharge summary, medications and follow-up visits. ??You can alsosend a secure electronic message to your doctor???s office to request appointments, renew medications or just ask a question. You can enroll at [email or web address] or register during your next office visit. [...] primary care provider, you may find a [facility] provider by calling [facility] at [phone]. [facility], in keeping with [facility] guidance, no longer requires face masks for staff, patientsor visitors in most situations. Similar to time spent indoors at other locations, there is the chance that you were exposed to respiratory viruses during your time with us (such as flu or COVID-19).? If you develop symptoms concerning for a viral respiratory infection, please seek testing (and treatment if indicated) from your medical provider or home test kit. For information about the plan of care [...] Care Team Personnel Name: Sophia Khanna Position: [facility] Onco RN Member Role: Primary Care Nurse Name: Chen Pop MD Position: [facility] Physician - Primary Care Member Role: PCP Address: Address: [address] [place] [address]- Name: Eli Layton RN Position: [facility] RN Member Role: Primary Care Nurse Name: Cony Hernández RN Position: [facility] Onco RN Member Role: Primary Care Nurse Name: Torri Manley Position: [facility] RN Member Role: Primary Care Nurse Name: Jerman Bain MD Position: [facility] Renal MD Member Role: Lifetime Consulting Physician Address: Address: [address] [place] [address] [address] [facility] [place] [address]- [place] Name: Jd Estrella RN Position: [facility] Onco RN Member Role: Primary Care Nurse Name: Binta Pena RN Position: [facility] Onco RN Member Role: Primary Care Nurse Name: Chantel Hyde RN, I Position: [facility] RN Member Role: Primary Care Nurse Name: Slick Medeiros MD Position: [facility] Physician - Oncology Med Service: Hematology & Oncology Member Role: Attending Physician Address: Address: [address] [place] [address] [place] [address]- Care Team Related Persons Name: IDA MARSHALL Address: [address] [place] [address] Name: ARMANDO MARSHALL
--- OUTSIDE RECORDS SUMMARY | 2023-09-11 06:52 | XMS_ITS | Continuity of Care Document ---
Author Name Unknown Organization [facility] Address [address] [place] [address]- Care Team Providers Care Digital Pre Press Operator Name Role Phone Chen Pop MD Primary Care Physician Encounter [facility] Date(s): 07/29/23 - 08/28/23 [facility] [address] [place] [address] Attending Physician: Ethan Griffith Admitting Physician: Ethan Griffith Referring Physician: Ethan Griffith Allergies, Adverse Reactions, Alerts No Known Allergies [...] Refills, Maintenance, 05/27/23 5:20:00 EDT, [facility], 165, cm, 05/22/23 9:30:00 EDT, Height, 70.6, kg, 05/22/23 9:30:00 EDT, Dry Weight Start Date: 05/27/23 Status: Ordered Aspirin Low Dose 81 mg oral delayed release tablet 1 tablet, By Mouth, Daily, # 90 tablet, 3 Refills, Maintenance, 06/27/22 7:48:00 EDT, [facility], 165, cm, 06/01/22 14:30:00 EDT, Height, 70.5, [...] Maintenance, 06/27/22 8:11:00 EDT,Route to Pharmacy Electronically, [facility] [id number], 165, cm, 06/01/22 14:30:00 EDT, Height, 70.5, kg, 05/23/22 12:06:00 EDT, Dry Weight Start Date: 06/27/22 Status: Ordered ixazomib 3 mg oral capsule 1 capsule = 3 mg, By Mouth, Every 7 days, on day 1, 8 and 15 of a 28-day cycle, # 3 capsule, 0 Refills, Maintenance, 06/02/23 20:32:00 EDT, Capsule, [facility], Partial fill upon patient request if the prescription is for a schedule I... Start Date: 06/02/23 Status: Ordered ixazomib 3 mg oral capsule 1 capsule = 3 mg, By Mouth, Every 7 days, on day 1, 8 and 15 of a 28-day cycle, # 3 capsule, 0 Refills, Maintenance, 03/11/23 14:02:00 EDT, Capsule, [facility], Partial fill upon patient request if the prescription is for a schedule I... Start Date: 03/11/23 Status: Ordered ixazomib 3 mg oral capsule 1 capsule = 3 mg, By Mouth, Every 7 days, on day 1, 8 and 15 of a 28-day cycle, # 3 capsule, 0 Refills, Maintenance, 08/26/23 8:59:00 EST, Capsule, [facility], Partial fill upon patient request if the prescription is for a schedule II... Start Date: 08/26/23 Status: Ordered ixazomib 3 mg oral capsule 1 capsule = 3 mg, By Mouth, Every 7 days, on day 1, 8 and 15 of a 28-day cycle, # 3 capsule, 0 Refills, Maintenance, 05/03/23 17:53:00 EDT, Capsule, [facility], Partial fill upon patient request if the prescription is for a schedule I... Start Date: 05/03/23 Status: Ordered ixazomib 3 mg oral capsule 1 capsule = 3 mg, By Mouth, Every 7 days, on day 1, 8 and 15 of a 28-day cycle, # 3 capsule, 0 Refills, Maintenance, 02/20/23 18:49:00 EDT, Capsule, [facility], Partial fill upon patient request if the prescription is for a schedule I... Start Date: 02/20/23 Status: Ordered ixazomib 3 mg oral capsule 1 capsule = 3 mg, By Mouth, Every 7 days, on day 1, 8 and 15 of a 28-day cycle, # 3 capsule, 0 Refills, Maintenance, 08/16/22 18:15:00 EST, Capsule, [facility], Partial fill upon patient request if the prescription is for a schedule I... Start Date: 08/16/22 Status: Ordered ixazomib 3 mg oral capsule 1 capsule = 3 mg, By Mouth, Every 7 days, on day 1, 8 and 15 of a 28-day cycle, # 3 capsule, 0 Refills, Maintenance, 11/16/22 17:54:00 EST, Capsule, [facility], Partial fill upon patient request [...] 0 Refills, Maintenance, 05/03/21 12:35:00 EDT, Tablet, [facility], Partial fill upon patient request if the prescription is for a schedule II opioid drug., 165, cm, 05/03/21 7:51:00 EDT, H... Start Date: 05/03/21 Status: Ordered MiraLax oral powder for reconstitution = 17 Gm, By Mouth, Daily, PRN Constipation, dissolve in water before taking, # 527 Gm, 1 Refills, Maintenance, 07/30/22 16:13:00 EST, REC Powder, [facility]/pharmacy #[id number], Partial fill upon patient requestif [...] tablet, 1 Refills, Maintenance, 08/19/23 8:20:00 EST, [facility]ORE [id number], 165, cm, 08/14/23 10:00:00 EST, Height, 71, [...] 05/08/21 12:51:00 EDT, Route to Pharmacy Electronically, [facility]/pharmacy #[id number] Tablet, Partial fill upon patient [...] 0 Refills, Maintenance, 05/03/21 12:36:00 EDT, Capsule, [facility], Partial fill upon patient request [...] 12/10/14 Sex Laboratory * Event Display: Non BH Lab Results Authored Date: * Event Display: Non BH Lab Results Authored Date: Patient Care team information Care Team Personnel Name: Sophia Khanna Position: [facility] Onco RN Member Role: Primary Care Nurse Name: Chen Pop MD Position: [facility] Physician - Primary Care Member Role: PCP Address: Address: [address] [place] [address]- Name: Eli Layton RN Position: [facility] RN Member Role: Primary Care Nurse Name: Cony Hernández RN Position: [facility] Onco RN Member Role: Primary Care Nurse Name: Torri Manley Position: [facility] RN Member Role: Primary Care Nurse Name: Jerman Bain MD Position: [facility] Renal MD Member Role: Lifetime Consulting Physician Address: Address: [address] [place] [address] [address] [facility] [place] [address]- [place] Name: Jd Estrella RN Position: [facility] Onco RN Member Role: Primary Care Nurse Name: Binta Pena RN Position: [facility] Onco RN Member Role: Primary Care Nurse Name: Chantel Hyde RN, I Position: [facility] RN Member Role: Primary Care Nurse Care Team Related Persons Name: IDA MARSHALL Address: home [address] [place] [address] Name: ARMANDO MARSHALL
--- OUTSIDE RECORDS SUMMARY | 2023-09-11 06:52 | XMS_ITS | Continuity of Care Document ---
Author Name Unknown Organization [facility] Address [address] [place] [id number]- Care Team Providers Care Administrative Resident Name Role Phone Chen Pop MD Primary Care Physician [facility] [id number] Date(s): 05/22/23 - 06/21/23 [facility] [address] [place] [id number]- Allergies, Adverse Reactions, Alerts No Known Allergies [...] Refills, Maintenance, 05/27/23 5:20:00 EDT, [id number], 165, cm, 05/22/23 9:30:00 EDT, Height, 70.6, kg, 05/22/23 9:30:00 EDT, Dry Weight Start Date: 05/27/23 Status: Ordered Aspirin Low Dose 81 mg oral delayed release tablet 1 tablet, By Mouth, Daily, # 90 tablet, 3 Refills, Maintenance, 06/27/22 7:48:00 EDT, [id number], 165, cm, 06/01/22 14:30:00 EDT, Height, 70.5, [...] Maintenance, 06/27/22 8:11:00 EDT,Route to Pharmacy Electronically, [id number], 165, cm, 06/01/22 14:30:00 EDT, Height, 70.5, kg, 05/23/22 12:06:00 EDT, Dry Weight Start Date: 06/27/22 Status: Ordered ixazomib 3 mg oral capsule 1 capsule = 3 mg, By Mouth, Every 7 days, on day 1, 8 and 15 of a 28-day cycle, # 3 capsule, 0 Refills, Maintenance, 06/02/23 20:32:00 EDT, Capsule, [facility], Partial fill upon patient request if the prescription is for a schedule I... Start Date: 06/02/23 Status: Ordered ixazomib 3 mg oral capsule 1 capsule = 3 mg, By Mouth, Every 7 days, on day 1, 8 and 15 of a 28-day cycle, # 3 capsule, 0 Refills, Maintenance, 03/11/23 14:02:00 EDT, Capsule, [facility], Partial fill upon patient request if the prescription is for a schedule I... Start Date: 03/11/23 Status: Ordered ixazomib 3 mg oral capsule 1 capsule = 3 mg, By Mouth, Every 7 days, on day 1, 8 and 15 of a 28-day cycle, # 3 capsule, 0 Refills, Maintenance, 05/03/23 17:53:00 EDT, Capsule, [facility], Partial fill upon patient request if the prescription is for a schedule I... Start Date: 05/03/23 Status: Ordered ixazomib 3 mg oral capsule 1 capsule = 3 mg, By Mouth, Every 7 days, on day 1, 8 and 15 of a 28-day cycle, # 3 capsule, 0 Refills, Maintenance, 02/20/23 18:49:00 EDT, Capsule, [facility], Partial fill upon patient request if the prescription is for a schedule I... Start Date: 02/20/23 Status: Ordered ixazomib 3 mg oral capsule 1 capsule = 3 mg, By Mouth, Every 7 days, on day 1, 8 and 15 of a 28-day cycle, # 3 capsule, 0 Refills, Maintenance, 08/16/22 18:15:00 EST, Capsule, [facility], Partial fill upon patient request if the prescription is for a schedule I... Start Date: 08/16/22 Status: Ordered ixazomib 3 mg oral capsule 1 capsule = 3 mg, By Mouth, Every 7 days, on day 1, 8 and 15 of a 28-day cycle, # 3 capsule, 0 Refills, Maintenance, 11/16/22 17:54:00 EST, Capsule, [facility], Partial fill upon patient [...] 0 Refills, Maintenance, 05/03/21 12:35:00 EDT, Tablet, [facility], Partial fill upon patient request if the prescription is for a schedule II opioid drug., 165, cm, 05/03/21 7:51:00 EDT, H... Start Date: 05/03/21 Status: Ordered MiraLax oral powder for reconstitution = 17 Gm, By Mouth, Daily, PRN Constipation, dissolve in water before taking, # 527 Gm, 1 Refills, Maintenance, 07/30/22 16:13:00 EST, REC Powder, [facility]/pharmacy #[id number], Partial fill upon patient requestif [...] tablet, 1 Refills, Maintenance, 08/30/22 15:54:00 EST, [facility]/pharmacy #[id number], Partial fill upon patient request [...] 12:51:00 EDT, Route to Pharmacy Electronically, [facility]/pharmacy #[id number] Tablet, Partial fill upon patient [...] 0 Refills, Maintenance, 05/03/21 12:36:00 EDT, Capsule, [facility], Partial fill upon patient request if [...] Care Team Personnel Name: Sophia Khanna Position: [facility] Onco RN Member Role: Primary Care Nurse Name: Chen Pop MD Position: [facility] Physician - Primary Care Member Role: PCP Address: Address: [address] [place], [place] [address] Name: Eli Layton RN Position: [facility] RN Member Role: Primary Care Nurse Name: Cony Hernández RN Position: [facility] Onco RN Member Role: Primary Care Nurse Name: Torri Manley Position: [facility] RN Member Role: Primary Care Nurse Name: Jerman Bain MD Position: [facility] Renal MD Member Role: Lifetime Consulting Physician Address: Address: [address] [place] [address] [address] [facility] [place] [address]- Name: Jd Estrella RN Position: [facility] Onco RN Member Role: Primary Care Nurse Name: Binta Pena RN Position: [facility] Onco RN Member Role: Primary Care Nurse Name: Chantel Hyde RN, I Position: [facility] RN Member Role: Primary Care Nurse Care Team Related Persons Name: IDA MARSHALL Address: [address] [address] Name: ARMANDO MARSHALL
--- OUTSIDE RECORDS SUMMARY | 2023-09-11 06:52 | XMS_ITS | Continuity of Care Document ---
Author Name Unknown Organization [facility] Address [address] [place] [address]- Care Team Providers Care Linotyper Name Role Phone Chen Pop MD Primary Care Physician [phone] [id number] Date(s): 04/05/23 - 05/05/23 [facility] [address] [place] [address]- Allergies, Adverse Reactions, Alerts No Known Allergies [...] tablet, 2 Refills, Maintenance, 10/15/22 8:14:00 EST, [facility], 165, cm, 09/26/22 13:12:00 EST, Height, 73.6, kg, 09/26/22 11:25:00 EST, Dry Weight Start Date: 10/15/22 Status: Ordered Aspirin Low Dose 81 mg oral delayed release tablet 1 tablet, By Mouth, Daily, # 90 tablet, 3 Refills, Maintenance, 06/27/22 7:48:00 EDT, [facility], 165, cm, 06/01/22 14:30:00 EDT, Height, 70.5, kg, 05/23/22 12:06:00 EDT, Dry Weight Start Date: 06/27/22 Status: Ordered Bactrim 400 mg-80 mg oral tablet 1 tablet, By Mouth, Every Saturday, Saturday and Saturday, # 45 tablet, 1 Refills, Maintenance, 05/03/21 17:11:00 EDT, [facility]/pharmacy #[id number], Partial fill upon patient request if [...] tablet, 1 Refills, Maintenance, 02/18/23 11:17:00 EDT, [facility] [id number], 165, cm, 01/21/23 15:29:00 EDT, Height, 71.9, [...] Maintenance, 06/27/22 8:11:00 EDT,Route to Pharmacy Electronically, [facility] [id number], 165, cm, 06/01/22 14:30:00 EDT, Height, 70.5, [...] 0 Refills, Maintenance, 03/11/23 14:02:00 EDT, Capsule, [facility], Partial fill upon patient request if the prescription is for a schedule I... Start Date: 03/11/23 Status: Ordered ixazomib 3 mg oral capsule 1 capsule = 3 mg, By Mouth, Every 7 days, on day 1, 8 and 15 of a 28-day cycle, # 3 capsule, 0 Refills, Maintenance, 05/03/23 17:53:00 EDT, Capsule, [facility], Partial fill upon patient request if the prescription is for a schedule I... Start Date: 05/03/23 Status: Ordered ixazomib 3 mg oral capsule 1 capsule = 3 mg, By Mouth, Every 7 days, on day 1, 8 and 15 of a 28-day cycle, # 3 capsule, 0 Refills, Maintenance, 02/20/23 18:49:00 EDT, Capsule, [facility], Partial fill upon patient request if the prescription is for a schedule I... Start Date: 02/20/23 Status: Ordered ixazomib 3 mg oral capsule 1 capsule = 3 mg, By Mouth, Every 7 days, on day 1, 8 and 15 of a 28-day cycle, # 3 capsule, 0 Refills, Maintenance, 08/16/22 18:15:00 EST, Capsule, [facility], Partial fill upon patient request if the prescription is for a schedule I... Start Date: 08/16/22 Status: Ordered ixazomib 3 mg oral capsule 1 capsule = 3 mg, By Mouth, Every 7 days, on day 1, 8 and 15 of a 28-day cycle, # 3 capsule, 0 Refills, Maintenance, 11/16/22 17:54:00 EST, Capsule, [facility], Partial fill upon patient request if the prescription is for a schedule I... Start Date: 11/16/22 Status: Ordered Lidocaine 5% Topical Topically, PRN as needed for mouth sore pain, 0 Refills, Maintenance Start Date: 10/08/13 Status: Ordered melatonin 3 mg oral tablet = 3 mg, By Mouth, Daily at bedtime, # 60 tablet, 0 Refills, Maintenance, 05/03/21 12:35:00 EDT, Tablet, [facility], Partial fill upon patient request if the prescription is for a schedule II opioid drug., 165, cm, 05/03/21 7:51:00 EDT, H... Start Date: 05/03/21 Status: Ordered MiraLax oral powder for reconstitution = 17 Gm, By Mouth, Daily, PRN Constipation, dissolve in water before taking, # 527 Gm, 1 Refills, Maintenance, 07/30/22 16:13:00 EST, REC Powder, [facility]/pharmacy #[id number], Partial fill upon patient requestif the [...] tablet, 0 Refills, Maintenance, 03/24/22 12:41:00 EDT, [facility]/pharmacy #[id number], Partial fill upon patient request ifthe prescription is for a schedule II opioid drug.... Start Date: 03/24/22 Status: Ordered prochlorperazine 5 mg oral tablet 1-2 tablet, By Mouth, Every 6 hours, PRN Nausea, # 60 tablet, 1 Refills, Maintenance, 08/30/22 15:54:00 EST, [facility]/pharmacy #[id number], Partial fill upon patient request if [...] EDT, Route to Pharmacy Electronically, [facility]/pharmacy #[id number] Tablet, Partial fill upon patient request if the p... Start Date: 05/08/21 Status: Ordered Senna Plus 50 mg-8.6 mg oral tablet 2 tablet, By Mouth, Daily at bedtime, PRN Constipation, # 60 tablet, 3 Refills, Maintenance, 06/30/21 14:45:00 EDT, Tablet, [facility]/pharmacy #[id number], Partial fill upon patient request if the prescription is for a schedule II opioid drug., 2 tablet By Mouth... Start Date: 06/30/21 Status: Ordered traMADol 50 mg oral tablet 0.5 tablet = 25 mg, By Mouth, Every 8 hours, # 12 tablet, 0 Refills, Maintenance, 04/04/23 15:45:00EDT, [facility]/pharmacy #[id number], Partial fill upon patient request if [...] 0 Refills, Maintenance, 05/03/21 12:36:00 EDT, Capsule, [facility], Partial fill upon patient request if the prescription is for a schedule II opioid drug., 165, cm, 05/03/21 7:51:00 ED... Start Date: 05/03/21 Status: Ordered Zofran 4 mg oral tablet 1 tablet = 4 mg, By Mouth, Every 8 hours, PRN Nausea & Vomiting, # 20 tablet, 0 Refills, Maintenance, 12/08/21 15:48:00 EDT, Tablet, [facility]/pharmacy #[id number], Partial fill upon patient request if [...] Care Team Personnel Name: Sophia Khanna Position: [facility] Onco RN Member Role: Primary Care Nurse Name: Chen Pop MD Position: [facility] Physician - Primary Care Member Role: PCP Address: Address: [address] [place] [address]- Name: Eli Layton RN Position: [facility] RN Member Role: Primary Care Nurse Name: Cony Hernández RN Position: [facility] Onco RN Member Role: Primary Care Nurse Name: Torri Manley Position: [facility] RN Member Role: Primary Care Nurse Name: Jerman Bain MD Position: [facility] Renal MD Member Role: Lifetime Consulting Physician Address: Address: [address] [facility] [address] [facility] [address] [facility] [place] [address]- Name: Jd Estrella RN Position: [facility] Onco RN Member Role: Primary Care Nurse Name: Binta Pena RN Position: [facility] Onco RN Member Role: Primary Care Nurse Name: Chantel Hyde RN, I Position: [facility] RN Member Role: Primary Care Nurse Care Team Related Persons Name: IDA MARSHALL Address: [address] [place] [address] Name: ARMANDO MARSHALL
--- NOTE | 2023-09-11 06:53 | PHA.MEDREC ---
Pharmacy Consult ? Medication Reconciliation Pharmacy has completed the medication reconciliation. Reviewed med rec done by nursing
--- OUTSIDE RECORDS SUMMARY | 2023-09-11 06:53 | XMS_ITS | Patient Health Record ---
Author Name Unknown [facility] Address [address] [place] [address] Care Team Providers Care Field Operations Farm Manager Name Role Phone Judy Abreu MD Primary Care Provider Unalynn Lilliana Riley Unavailable [phone] ALLERGIES Allergen (clinical drug ingredient) Drug/Non Drug Allergy documented on EMR Reaction Allergy Type Onset Date Status ibuprofen Advil acid reflux Drug Allergy Activ e naproxen Aleve acid reflux Drug Allergy Activ e Motrin acid reflux Drug Allergy Activ e REASON FOR REFERRAL No Information MEDICATIONS Medication SIG (Take, Route, Frequency, Duration) Notes Start Date End Date Status DULoxetine HCl Activ e LamISIL 250 MG 1 tablet Orally Once a day for 30 days 03/25/2015 Not-Taking Hyoscyamine Active Lyrica 75 MG 1 capsule Orally Onc e a day Active Raloxifene HCl Activ e Physical Therapy . . . 2-3x/week for 3- 4 weeks 06/20/2018 Active Propranolol HCl 10 MG 1 tablet Orally Th ree times a day 01/08/2014 Active Nightsplint . . . AFO - L1930 for . Active Protonix 20 MG 2 tablets Orally Onc e a day 01/08/2014 Active Zoloft 100 MG 1 tablet Orally Once a day Active carBAMazepine Active Vitamin E Active Calcium Active Valsartan 80 MG Orally Once a day Active Pantoprazole Sodium 40 MG Orally Once a day Active Medrol 4 MG as directed Orally 06/26/2017 Not-Taking Ambien Active LFT . . . . for . 03/25/2015 Not-Carter ing Vagifem 10 MCG 1 tablet Vaginal Two times a Week 01/08/2014 Not-Taking SOCIAL HISTORY Tobacco Use: Social History Observation Description Date Details (start date - stop date) Former Smoker NA - NA Sex Assigned At : Social History Observation Description Sex Assigned At Unknown Tobacco Use/Smoking Question Answer Notes Are you a: former smoker Additional Findings: Tobacco Non-User Current no n-smoker Tobacco use other than smoking: Question Answer Notes Are you an other tobacco user? No PROBLEMS No Known Problems PLAN OF TREATMENT Pending Test Test Name Order Date C-Reactive Protein, Quant 06/26/2017 ESR 06/26/2017 X ray : Foot, left 3V 05/28/2018 X ray : Foot, left 3V 02/09/2022 X ray : Foot, right 3V 05/28/2018 [id number] Plate 01/08/2014 URIC ACID 06/26/2017 Insurance Providers Payer Name Payer Address Payer Phone Subscriber Number Group Number Insured Name Patient Relationship to Insured Coverage Start Date Coverage End Date [employer] [address] [place] [address] [id number] Lillian Copeland Self - patient is the insured [address] [place] [address] [address] [place] [address] [phone] [id number] Lillian Copeland Self - patient is the insured MEDICAL (GENERAL) HISTORY Medical History History ICD Code Headaches Surgical History Surgery Date(Month/Year) 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
--- OUTSIDE RECORDS SUMMARY | 2023-09-11 06:53 | XMS_ITS | Continuity of Care Document ---
Author Name Unknown Organization [facility] ter Address [address] [place] [id number] Care Team Providers Care Paper Production Engineer Name Role Phone Chen Pop MD Primary Care Physician [place] [facility] [place]09[place]23 - 06/24/[address] [id number] Encounter Diagnosis Other iron deficiency anemias(Final) - Discharge Disposition: A-D/C Home Attending Physician: Mayra Villagran MD Admitting Physician: Mayra Villagran MD Referring Physician: Chen Pop MD Allergies, [...] Refills, Maintenance, 05/27/23 5:20:00 EDT, [id number], 165, cm, 05/22/23 9:30:00 EDT, Height, 70.6, kg, 05/22/23 9:30:00 EDT, Dry Weight Start Date: 05/27/23 Status: Ordered Aspirin Low Dose 81 mg oral delayed release tablet 1 tablet, By Mouth, Daily, # 90 tablet, 3 Refills, Maintenance, 06/27/22 7:48:00 EDT, [id number], 165, cm, 06/01/22 14:30:00 EDT, Height, 70.5, [...] Maintenance, 06/27/22 8:11:00 EDT,Route to Pharmacy Electronically, [id number], 165, cm, 06/01/22 14:30:00 EDT, Height, 70.5, kg, 05/23/22 12:06:00 EDT, Dry Weight Start Date: 06/27/22 Status: Ordered ixazomib 3 mg oral capsule 1 capsule = 3 mg, By Mouth, Every 7 days, on day 1, 8 and 15 of a 28-day cycle, # 3 capsule, 0 Refills, Maintenance, 06/02/23 20:32:00 EDT, Capsule, [facility], Partial fill upon patient request if the prescription is for a schedule I... Start Date: 06/02/23 Status: Ordered ixazomib 3 mg oral capsule 1 capsule = 3 mg, By Mouth, Every 7 days, on day 1, 8 and 15 of a 28-day cycle, # 3 capsule, 0 Refills, Maintenance, 03/11/23 14:02:00 EDT, Capsule, [facility], Partial fill upon patient request if the prescription is for a schedule I... Start Date: 03/11/23 Status: Ordered ixazomib 3 mg oral capsule 1 capsule = 3 mg, By Mouth, Every 7 days, on day 1, 8 and 15 of a 28-day cycle, # 3 capsule, 0 Refills, Maintenance, 05/03/23 17:53:00 EDT, Capsule, [facility], Partial fill upon patient request if the prescription is for a schedule I... Start Date: 05/03/23 Status: Ordered ixazomib 3 mg oral capsule 1 capsule = 3 mg, By Mouth, Every 7 days, on day 1, 8 and 15 of a 28-day cycle, # 3 capsule, 0 Refills, Maintenance, 02/20/23 18:49:00 EDT, Capsule, [facility], Partial fill upon patient request if the prescription is for a schedule I... Start Date: 02/20/23 Status: Ordered ixazomib 3 mg oral capsule 1 capsule = 3 mg, By Mouth, Every 7 days, on day 1, 8 and 15 of a 28-day cycle, # 3 capsule, 0 Refills, Maintenance, 08/16/22 18:15:00 EST, Capsule, [facility], Partial fill upon patient request if the prescription is for a schedule I... Start Date: 08/16/22 Status: Ordered ixazomib 3 mg oral capsule 1 capsule = 3 mg, By Mouth, Every 7 days, on day 1, 8 and 15 of a 28-day cycle, # 3 capsule, 0 Refills, Maintenance, 11/16/22 17:54:00 EST, Capsule, [facility], Partial fill upon patient request if [...] 0 Refills, Maintenance, 05/03/21 12:35:00 EDT, Tablet, [facility], Partial fill upon patient request if the prescription is for a schedule II opioid drug., 165, cm, 05/03/21 7:51:00 EDT, H... Start Date: 05/03/21 Status: Ordered MiraLax oral powder for reconstitution = 17 Gm, By Mouth, Daily, PRN Constipation, dissolve in water before taking, # 527 Gm, 1 Refills, Maintenance, 07/30/22 16:13:00 EST, REC Powder, [facility]/pharmacy #[id number], Partial fill upon patient [...] tablet, 1 Refills, Maintenance, 08/30/22 15:54:00 EST, [facility]/pharmacy #[id number], Partial fill upon patient [...] 05/08/21 12:51:00 EDT, Route to Pharmacy Electronically, [facility]/pharmacy #[id number] Tablet, Partial fill upon [...] 0 Refills, Maintenance, 05/03/21 12:36:00 EDT, Capsule, [facility], Partial fill upon patient [...] Range]: 1 2 3 Height 165 cm (06/20/23 12:36 PM) 165 cm (06/20/23 11:00 AM) 165 cm (06/06/23 1:10 PM) Weight 69.9 kg (06/06/23 11:48 AM) Oxygen Saturation [94-100 %] 97 % (06/20/23 12:36 PM) 100 % (06/20/23 11:00 AM) 97 % (06/06/23 1:10 PM) Pulse Rate [55-90 bpm] 58 bpm (06/20/23 12:36 PM) 67 bpm (06/20/23 11:00 AM) 53 bpm *L* (06/06/23 1:10 PM) Blood Pressure [90-138/55-84 mm Hg] 134/75mm Hg (06/20/23 12:36 PM) 111/73mm Hg (06/20/23 11:00 AM) 148/72mm Hg *H* (06/06/23 1:10 PM) Respiratory Rate [16-30 br/min] 16 br/min (06/20/23 12:36 PM) 18 br/min (06/20/23 11:00 AM) 16 br/min (06/06/23 1:10 PM) Temperature [96.8-100.4 DegF] 97.7 DegF (06/20/23 12:36 PM) 97.8 DegF (06/20/23 11:00 AM) 97.7 DegF (06/06/23 1:10 PM) Mode of Delivery (Oxygen) Room air (06/20/23 12:36 PM) Room air (06/20/23 11:00 AM) Room air (06/06/23 1:10 PM) Blood pressure sites Arm, right (06/06/23 11:26 AM) Temperature Route Temporal (06/20/23 12:36 PM) Temporal (06/20/23 11:00 AM) Temporal (06/06/23 1:10 PM) Dry Weight 70 kg (06/20/23 11:59 AM) 69.9 kg (06/06/23 11:48 AM) 69.9 kg (06/06/23 11:26 AM) Dry Weight Obtained Via Standing scale (06/20/23 11:59 AM) Social History Social History Type Response Smoking Status Former smoker entered on: 12/10/14 Sex Hospital Progress note * Britni Noel RN: PERFORM, SIGN, VERIFY Event Display: Progress Note Hospital Authored Date: [id number] Patient: MELIDA LAZCANO Age: 77 years Sex: Female : 1945 Associated Diagnoses: None Author: Britni Noel RN Findings Nursing Data IV Lines. : IV Lines. 06/20/2023 12:00 EDT Right Antecubital 22 gauge Peripheral IV Activity: Discontinue Peripheral IV Assess Compare Touch: A/C/T Done, line D/C'd and or pt discharged Peripheral IV D/C Date/Time: 06/20/2023 12:40 Peripheral IV D/C Reason: Discontinued treatment complete Peripheral IV Post-Removal: Catheter tip intact 06/20/2023 11:00 EDT Right Antecubital 22 gauge Peripheral IV Activity: Start Peripheral IV Insertion Date/Time: 06/20/2023 11:10 Peripheral IV Number of Attempts: 1 Peripheral IV Site Assessment: Flushes Well, Good Blood return Peripheral IV Site Drainage: None Peripheral IV Dressing: Clean, dry and intact, Semi-permeable membrane . Vital Signs : VITAL SIGNS SECTION 06/20/2023 12:36 EDT Temperature 97.7 DegF Temperature Route Temporal Pulse Rate 58 bpm Respiratory Rate 16 br/min Systolic Blood Pressure 134 mm Hg Diastolic Blood Pressure 75 mm Hg Mean Arterial Pressure 95 mm Hg Pulse Pressure 59 mm Hg Oxygen Saturation 97 % Mode of Delivery (Oxygen) Room air 06/20/2023 11:00 EDT Temperature 97.8 DegF Temperature Route Temporal Pulse Rate 67 bpm Respiratory Rate 18 br/min Systolic Blood Pressure 111 mm Hg Diastolic Blood Pressure 73 mm Hg Mean Arterial Pressure 86 mm Hg Pulse Pressure 38 mm Hg Oxygen Saturation 100 % Mode of Delivery (Oxygen) Room air . Narrative/Incidental Feraheme end time 1236. Pt tolerated with no signs or symptoms of adverse reactions. Pt ambulatory and off unit. . * Petty Roca RN: PERFORM, SIGN, VERIFY Event Display: Progress Note Hospital Authored Date: [id number] Patient: MELIDA LAZCANO Age: 77 years Sex: Female : 1945 Associated Diagnoses: None Author: Petty Roca RN Findings Narrative/Incidental Patient admitted for Feraheme. VSS, IV placed. Feraheme infused with no issues or signs of adverse reactions. End time 1310. Patient stayed for 30 minutes for post infusion monitoring., VSS. IV removed. Patient was ambulatory at discharge and was discharged to home.. * Britni Noel RN: PERFORM, SIGN, VERIFY Event Display: Progress Note Hospital Authored Date: [id number] Patient: MELIDA LAZCANO Age: 77 years Sex: Female : 1945 Associated Diagnoses: None Author: Britni Noel RN Findings Nursing Data IV Lines. : IV Lines. 06/06/2023 13:00 EDT Right Antecubital 22 gauge Peripheral IV Activity: Discontinue Peripheral IV Assess Compare Touch: A/C/T Done, line D/C'd and or pt discharged Peripheral IV D/C Date/Time: 06/06/2023 13:37 Peripheral IV D/C Reason: Discontinued treatment complete Peripheral IV Post-Removal: Catheter tip intact 06/06/2023 12:00 EDT Right Antecubital 22 gauge Peripheral IV Activity: Start Peripheral IV Insertion Date/Time: 06/06/2023 12:12 Peripheral IV Number of Attempts: 1 Peripheral IV Site Assessment: Clean, dry and intact, Flushes Well, Good Blood return . Narrative/Incidental Feraheme end time 1310. Pt tolerated with no signs or symptoms of adverse reactions. Pt monitored for 30 min post infusion. Pt ambulatory and off unit. . Patient Care team information Care Team Personnel Name: Sophia Khanna Position: [facility] Onco RN Member Role: Primary Care Nurse Name: Chen Pop MD Position: [facility] Physician - Primary Care Member Role: PCP Address: Address: [address] [place] [address]- Name: Eli Layton RN Position: [facility] RN Member Role: Primary Care Nurse Name: Cony Hernández RN Position: [facility] Onco RN Member Role: Primary Care Nurse Name: Torri Manley Position: [facility] RN Member Role: Primary Care Nurse Name: Jerman Bain MD Position: [facility] Renal MD Member Role: Lifetime Consulting Physician Address: Address: [address] [place] [address] [address] [facility], [place] [address]- [place] Name: Jd Estrella RN Position: [facility] Onco RN Member Role: Primary Care Nurse Name: Binta Pena RN Position: [facility] Onco RN Member Role: Primary Care Nurse Name: Chantel Hyde RN, I Position: [facility] RN Member Role: Primary Care Nurse Care Team Related Persons Name: IDA MARSHALL Address: [address] [address] Name: ARMANDO MARSHALL
[2023-09-11] MEDS: oxyCODONE HCl ER 10 MG TAB.ER.12H PO (07:09)
[2023-09-11] MEDS: ondansetron HCL 4 MG/2 ML VIAL IVPUSH (07:38)
[2023-09-11] MEDS: Lactated Ringers 1,000 ML 100 ML IVCONT (07:47)
--- NOTE | 2023-09-11 09:17 | MHC.SHP ---
Pre-Procedural Eval Section A Date of Service: 09/11/23 The patient is an INPATIENT: No Changes since office visit: Yes Cold of Flu in the past 2 weeks, Yes New Medical Problems, Yes Changes in Medication and Yes Patient answered all questions The History & Physical has been completed within 30 days and I have reviewed it.: No Section B Chief Complaint: RT OUSMANE Allergies: Allergies Allergy/AdvReac Type Severity Reaction Status Date / Time No Known Allergies Allergy Verified 09/11/23 06:45 Plan I have reviewed the history and physical and performed a pertinent physical examination on my patient. No changes have occurred unless specified. Time Spent With Patient Time: Total time managing care of this patient today ____ minutes.
--- NOTE | 2023-09-11 11:04 | PM.OP ---
Brief Operative Note Date of Service: 09/11/23 Pre-op diagnosis: Right hip OA Post-op diagnosis: same Procedure: Right OUSMANE Implants: Otto Trident2 50 [place] Accolade2 #6 132 deg +0/32 ceramic Surgeon: Maximino Cook MD Anesthesia: GETA and local Was an Tank Stave Assembler used for this Procedure?: Yes Tank Stave Assembler: Miya Roth Estimated blood loss (mL): 250 IV fluids (mL): 1,000 Pathology: other Condition: stable Disposition: PACU
--- NOTE | 2023-09-11 14:01 | W.PM.OPN ---
Operative Note Operative Note Date of Service: 09/11/23 Narrative: Date of Service: 09/11/23 Pre-op diagnosis: Right hip OA Post-op diagnosis: same Procedure: Right OUSMANE Implants: Ray Trident2 50 Ray Accolade2 #6 132 deg +0/32 ceramic Surgeon: Maximino Cook MD Anesthesia: GETA and local Was an General Service Technician used for this Procedure?: Yes General Service Technician: Miya Roth Estimated blood loss (mL): 250 IV fluids (mL): 1,000 Pathology: other Condition: stable Disposition: PACU Procedure in detail: Patient was brought into the operating room and placed in the right lateral decubitus position. All bony prominences were well padded and the limb was prepped and draped in standard sterile fashion. A time-out was called to identify proper site procedure proper surgeon IV antibiotics and 1 g of transaxemic acid were administered. I began by making a curvilinear incision over the posterolateral aspect of the greater trochanter. Dissection was taken down to the tensor fascia which was incised in line with the incision and a Charnley retractor was placed. Cautery was used to maintain hemostasis. The hip was internally rotated and the external rotators were identified. The vessels were cauterized and a full-thickness capsular/external rotator layer was developed starting just proximal to the piriformis. This layer was tagged and a dull Hohmann retractor was placed underneath the neck in the hip was dislocated. A neck cut was made 1 cm proximal to the lesser trochanter and the head and neck were removed and measured 46mm on the back table. I then removed the labrum and cauterized the fovea. I started with a 42 reamer and medialized to the inner table. I sequentially reamed up to a size 50 and impacted a 50mm cup at 45 degrees of inclination and 25 degrees of version. I then placed a 10 deg posterior lipped liner and turned my attention to the femur. I identified the piriformis insertion and used this as a starting point for my brody cutter. The medius tendon was protected with a Hibs retractor. A Charnley awl was inserted in the canal and a curved curette used to remove the lateral bone. I irrigated copiously. I then sequentially broached in the patient's natural version to a size 6 and placed my trial implants. I used a #6/132/+0 based on my pre-operative template. Using a trail head I took the hip through range of motion. I was satisfied with the stability and length. She removed all instrumentation and copiously irrigated. I placed my final femoral implant and again took the hip through range of motion and was satisfied with the stability and length. The final +0/32 implant was impacted in place and the hip reduced. I then irrigated copiously and 1 g of local transaxemic acid. I performed a capsular closure with 2.0 fiberwire, Alanna's fascia with 0 Vicryl, subcuticular with 2-0 Vicryl and the skin with alanis. Patient was placed into a sterile dressing. Patient was extubated brought to the recovery room in stable condition. There were no known complications.
--- NOTE | 2023-09-11 16:27 | HO.PM.IMCN ---
History of Present Illness Data of Consult Service Date: 09/11/23 Requesting physician: Miguel Prado Primary Care Provider: Chen Pop MD HPI Reason for consult: medical management 77-year-old female with history of hypertension, GERD, multiple myeloma on Prolia, history of breast cancer s/p lumpectomy admitted to Orthopedic surgery for management of osteoarthritis of the right hip s/p right OUSMANE with consult placed to hospitalist service for medical management. She is reporting discomfort in the R hip but otherwise has no complaints at this time. She does not use any illicit substances, smoke cigarettes, or drink alcohol. Review of Systems Review of Systems: General: No fevers, malaise, unintentional weight loss HEENT: No blurred vision, diplopia. No sore throat, nasal congestion, rhinorrhea, sinus pain, ear pain Cardiovascular: No chest pain, palpitations, or leg edema Respiratory: No shortness of breath, wheezing, cough GI: No abdominal pain, nausea, vomiting, diarrhea, constipation, melena, hematochezia : No dysuria, hematuria, increased urinary frequency, decreased urinary output MSK: No myalgia, back pain. +R hip pain Neuro: No headaches, weakness, paresthesias Skin: No rashes or lesions PMFSH Medical History Personal history of COVID-19 Pain Slow to wake up after anesthesia Achalasia of esophagus Otitis media of right ear Cataract RLS (restless legs syndrome) Insomnia Anxiety Hx of breast cancer Post-nasal drip Multiple myeloma Ankle fracture, left GERD (gastroesophageal reflux disease) Hypertension Family History Other Mental health disorder Surgical History Hx of bilateral cataract extraction History of lumpectomy of right breast History of History of surgery on left wrist History of colonoscopy H/O left knee surgery Status post ORIF of fracture of ankle (~2020) Social History Household Members: None Household Members Other:: , 2 sons, Housing: House Are you a primary healthcare administrator to a significant other at home: No Do you presently have visiting nurse or other home services: No Comment: pressure Patient Tobacco Use Status: Former Tobacco user Quit Date: Tobacco use type: Cigarette Years Smoked: 2 Smoked in Last 30 Days: No e-Cigarette/Vaping Use: Never Used Patient Given Instructions on How to Stop Smoking: No Second Hand Smoke Exposure: No Use of substances other than those prescribed or required for medical reasons: No Currently Displaying Signs/Symptoms of Drug Intoxication Withdrawal: No Any prior treatment program specific to substance use: No Have you been hit, kicked, punched, or otherwise hurt by someone within the past year? If so, by whom?: No Do you feel safe in your current relationship?: No Current Relationship Is there a partner from a previous relationship who is making you feel unsafe now?: No Are you made to feel afraid or neglected: No Are you DNR?: No Advance Directives: No Advance Directives Information Provided: Yes Advance Directives on File: No Do you have thoughts of harming others: None Do you have a plan to hurt others: No Plan Recently lost weight without trying: No Eating poorly because of decreased appetite: No Nutrition Risks: No Nutritional Risk Patient : No : No Poor oral hygiene: No service: No Current occupational status: retired Cognitive needs: No Hearing needs: No Vision needs: Yes Meds Allergies Allergy/AdvReac Type Severity Reaction Status Date / Time No Known Allergies Allergy Verified 09/11/23 06:45 Active Medications: Current Medications Acetaminophen (Acetaminophen 325 Mg Tablet) 650 mg PO Q6H PRN PRN Reason: Pain, Mild (Pain Scale 1-3) Last Admin: 09/11/23 14:02 Dose: 650 mg Acyclovir (Acyclovir 200 Mg Capsule) 400 mg PO BID [facility] Celecoxib (Celecoxib 200 Mg Capsule) 200 mg PO BID [facility] Docusate Sodium (Docusate Sodium 100 Mg/10 Ml Liquid) 250 mg PO BID KELLEE Duloxetine HCl (Duloxetine Hcl 60 Mg Capsule.Dr) 60 mg PO DAILY KELLEE Enoxaparin Sodium (Enoxaparin Sodium 40 Mg/0.4 Ml Syringe) 30 mg SUBCUT Q24H KELLEE Fluticasone Propionate (Fluticasone Propionate Nasal 16 Gm Lillian) 1 spray NOSTRIL-B DAILY [facility] Gabapentin (Gabapentin 300 Mg Capsule) 600 mg PO BID KELLEE Hydromorphone HCl (Hydromorphone Hcl 0.5 Mg/0.5 Ml Syringe) 0.25 mg IVPUSH Q4H PRN; Protocol PRN Reason: Pain, Severe (Pain Scale 7-10) Last Admin: 09/11/23 13:19 Dose: 0.25 mg Lactated Ringer's (Lr) 1,000 mls @ 100 mls/hr IVCONT .Q10H [facility] Last Admin: 09/11/23 13:43 Dose: 100 mls/hr Lisinopril (Lisinopril 2.5 Mg Tablet) 2.5 mg PO DAILY [facility]; Protocol Montelukast Sodium (Montelukast Sodium 10 Mg Tablet) 10 mg PO BEDTIME [facility] Omeprazole (Omeprazole 20 Mg Capsule.Dr) 20 mg PO BEDTIME [facility] Ondansetron HCl (Ondansetron Hcl 4 Mg/2 Ml Vial) 4 mg IVPUSH Q8H PRN PRN Reason: Nausea and Vomiting Oxycodone HCl (Oxycodone Hcl Immed Release 5 Mg Tablet) 5 mg PO Q4H PRN PRN Reason: Pain, Moderate(Pain Scale 4-6) Last Admin: 09/11/23 14:02 Dose: 5 mg Oxycodone HCl (Oxycodone Hcl Er 10 Mg Tab.Er.12h) 10 mg PO BID [facility] Prochlorperazine Maleate (Prochlorperazine Maleate 5 Mg Tablet) 10 mg PO DAILY PRN PRN Reason: Nausea And Vomiting Sodium Chloride (0.9 % Sodium Chloride Flush 3 Ml Syringe) [facility] Last Admin: 09/11/23 15:41 Dose: Not Given Trazodone HCl (Trazodone Hcl 50 Mg Tablet) 50 mg PO BEDTIME MRX1 [facility] Home Medications Medication Instructions Recorded Confirmed Last Taken Type acyclovir 400 mg tablet 400 mg PO BID 11/30/21 09/05/23 09/10/23 History calcium acetate PO .daily 11/30/21 09/05/23 09/10/23 History docusate sodium 250 mg capsule 250 mg PO BID 11/30/21 09/04/23 Unknown History (Stool Softener) lidocaine HCl 2 % mucosal solution 15 ml PO Q4H PRN Pain 08/21/22 09/05/23 Unknown History (Lidocaine Viscous) probiotics See Rx Instructions PO .COMPLEX 08/21/22 09/05/23 09/10/23 History dorzolamide 22.3 mg-timolol 6.8 ophthalmic (eye) 08/13/23 08/28/23 09/10/23 History mg/mL eye drops gabapentin 300 mg capsule 600 mg PO BID 08/28/23 09/05/23 09/11/23 05:30 History lisinopril 5 mg tablet 2.5 mg PO DAILY 08/28/23 09/05/23 09/10/23 History prochlorperazine maleate 5 mg 10 mg PO DAILY PRN Nausea And 08/28/23 09/05/23 Unknown History tablet Vomiting ixazomib 3 mg capsule (Ninlaro) mg PO 09/04/23 09/05/23 Unknown History montelukast 10 mg tablet 10 mg PO BEDTIME 09/04/23 09/05/23 09/10/23 History (Singulair) pantoprazole 40 mg tablet,delayed 40 mg PO BEDTIME 09/04/23 09/05/23 09/10/23 History release ropinirole 2 mg tablet 2 mg PO BEDTIME 09/05/23 09/05/23 09/10/23 History Physical Exam Vital Signs and Narrative: Vital Signs: Last Vital Signs Temp 96.8 F 09/11/23 15:21 Pulse 50 09/11/23 15:21 Resp 18 09/11/23 15:21 BP 149/73 H 09/11/23 15:21 Pulse Ox 95 09/11/23 15:21 O2 Del Method Room Air 09/11/23 15:21 O2 Flow Rate 2.0 09/11/23 13:13 BMI result Body Mass Index 30.5 Constitutional - Awake and Alert, No apparent distress Eyes - PERRLA, EOMI Cardiovascular - S1S2, RRR, No edema Respiratory - Normal lung expansion, Normal respiratory effort, No respiratory distress, CTA bilaterally Gastrointestinal - NT / ND; +BS; No rebound or guarding Extremities - no calf tenderness bilaterally, no swelling Skin - Warm/Dry Neurological - Alert & oriented x3 Psychological - Appropriate affect Results Imaging Radiologist's Impressions: Impressions Pelvis X-Ray 09/11/23 16:00 IMPRESSION: Right total hip replacement in anatomic alignment and position. Assessment and Plan (1) Osteoarthritis of right hip: Qualifiers: Osteoarthritis type: primary Qualified Code(s): M16.11 - Unilateral primary osteoarthritis, right hip Status: Acute Plan 77-year-old female with history of hypertension, GERD, multiple myeloma on Prolia, history of breast cancer s/p lumpectomy admitted to Orthopedic surgery for management of osteoarthritis of the right hip s/p right OUSMANE with consult placed to hospitalist service for medical management. #OA R hip s/p OUSMANE POD 0 -plan per orthopedic surgery # hypertension -blood pressure reasonably controlled -resume lisinopril 2.5 mg tomorrow morning -monitor blood pressures # GERD -continue PPI # oral neuropathy -continue gabapentin, lidocaine # multiple myeloma -outpatient follow-up Thank you for allowing me to participate in this consult. Signing off at this time. Please do not hesitate to call for further questions or for any acute medical issues
[2023-09-12] VITALS (7 sets, daily range): BP systolic 90–148; BP diastolic 30–68; PULSE 61–77; RESP 17–18; TEMP 36.1–36.9; O2SAT 94–96
[2023-09-12 06:27] LABS: MANUAL DIFF FLAG NO
[2023-09-12 06:40] LABS: Basophils Percent Auto 0.1 % (0-2); Eosinophils Percent Auto 0.1 % (0-4); Hematocrit 31.1 % (37.0-47.0); Hemoglobin 10.5 g/dl (12.0-16.0); Imm Gran Abs Auto 0.04 X10*3/uL (0.00-0.03); Imm Gran Pct Auto 0.4 % (0.0-0.4); Lymphocytes Absolute Auto 0.9 X10*3/uL (1.2-4.9); Lymphocytes Percent Auto 9.3 % (20-40); Mean Corpuscular HGB Conc 33.8 g/dl (31.0-35.0); Mean Corpuscular Hemoglobin 32.6 pg (27.0-33.0); Mean Corpuscular Volume 96.6 fL (80.0-98.0); Mean Platelet Volume 10.3 fL (9.4-12.3); Monocytes Absolute Auto 1.2 X10*3/uL (0.1-1.2); Monocytes Percent Auto 11.4 % (2-11); Neutrophils Absolute Auto 7.9 x10*3/uL (2.0-8.3); Neutrophils Percent Auto 78.7 % (45-73); Red Blood Count 3.22 X10*6/uL (4.20-5.50); Red Cell Distribution Width 13.1 % (11.0-16.0); White Blood Count 10.1 X10*3/uL (4.8-10.8)
[2023-09-12 06:41] LABS: Platelet Count 147 X10*3/uL (160-400)
[2023-09-12 06:52] LABS: Anion Gap 10 (12-20); Blood Urea Nitrogen 22 mg/dL (9-16); Calcium 7.8 mg/dL (8.4-10.2); Carbon Dioxide 29 mmol/L (22-29); Chloride 105 mmol/L (96-108); Estimated Glomerular Filt Rate 44; Glucose Fasting 121 mg/dL (60-99); Potassium 4.7 mmol/L (3.3-5.1); Sodium 139 mmol/L (135-145)
--- NOTE | 2023-09-12 08:44 | PM.PNORT ---
Subjective Subjective Date of Service: 09/12/23 Interval history: POD1 s/p RTHA Patient is resting in bed comfortably No overnight events Pain is managed No additional complaints Physical Exam Vital Signs: Vital Signs: Last Vital Signs Temp 97.4 F 09/12/23 07:56 Pulse 61 09/12/23 08:16 Resp 18 09/12/23 07:56 BP 107/53 L 09/12/23 08:16 Pulse Ox 96 09/12/23 08:16 O2 Del Method Room Air 09/12/23 07:56 O2 Flow Rate 2.0 09/11/23 13:13 BMI result Body Mass Index 30.5 Const: General: cooperative, healthy appearing and no acute distress Resp: Effort & Inspection: normal respiratory effort and able to speak in complete sentences Cardio: Rate: regular rate Peripheral pulses: Peripheral pulses 2+ throughout GI: Palpation (GI): Soft to palpation Skin: Lesions: no lesions Rashes: no rashes Extrem: Other: right hip dressing is c/d/i. Able to dorsi/plantar flex. Calf is supple and nontender. Sensation intact. Pedal pulse intact. Procedures Date of Service Date of Service: 09/12/23 Progress Note: A&P Assessment and plan (1) Status post total replacement of right hip: Status: Acute Plan Continue pain mgmnt Begin Lovenox dvt ppx begin PT/OT for RTHA - posterior precautions Dispo planning-Pending PT eval, pain mgmnt, rehab placement Time Spent With Patient Time: Total time managing care of this patient today ____ minutes. Quality Stroke Does the patient have a stroke diagnosis?: No VTE Prior VTE?: No VTE Risk Level:: Surgical - very high VTE Device Contraindication: N/A - Device Ordered VTE Drug Contraindication: N/A - Med Ordered
--- NOTE | 2023-09-12 10:38 | MHC.CM.PN ---
IMM delivered. Patient is from home alone. Functionally independent. States she does have a walker in the house, but hasn't had to use it. PCP: Chen Pop MD HCP: Patient states she has a HCP w/ son Red named as agent. Copy requested. DP: PT recommending [facility] is 1st choice, Maykel Henson 2nd. Referrals in [facility]. CM will continue to follow.
--- NOTE | 2023-09-12 14:18 | HO.POSTANES ---
Post Anesthesia Evaluation Post Anesthesia Evaluation Date of Service: 09/12/23 Vital Signs: Vital Signs Temp Pulse Resp BP Pulse Ox O2 Del Method 09/12/23 13:42 68 126/30 L 96 09/12/23 11:50 97.3 F 68 17 126/30 L 96 Room Air 09/12/23 08:16 61 107/53 L 96 09/12/23 07:56 97.4 F 61 18 107/53 L 96 Room Air 09/12/23 03:02 97.0 F 63 18 103/53 L 95 Room Air Anesthesia: General Mental Status: Awake Pain Control: Satisfactory Nausea/Vomiting: None Hydration: Adequate Anesthesia-Related Issues: No Anes. Related Issues
[2023-09-13] VITALS (9 sets, daily range): BP systolic 82–103; BP diastolic 40–62; PULSE 66–72; RESP 16–18; TEMP 36.2–36.8; O2SAT 93–97
--- NOTE | 2023-09-13 07:45 | PM.PNORT ---
Subjective Subjective Date of Service: 09/13/23 Interval history: POD2 s/p RTHA Patient is resting in bed comfortably No overnight events Pain is managed No additional complaints Physical Exam Vital Signs: Vital Signs: Last Vital Signs Temp 98.3 F 09/13/23 07:16 Pulse 70 09/13/23 07:16 Resp 18 09/13/23 07:16 BP 92/46 L 09/13/23 03:39 Pulse Ox 93 09/13/23 07:16 O2 Del Method Room Air 09/13/23 07:16 O2 Flow Rate 2.0 09/11/23 13:13 BMI result Body Mass Index 30.5 Const: General: cooperative, healthy appearing and no acute distress Resp: Effort & Inspection: normal respiratory effort and able to speak in complete sentences Cardio: Rate: regular rate Peripheral pulses: Peripheral pulses 2+ throughout GI: Palpation (GI): Soft to palpation Skin: Lesions: no lesions Rashes: no rashes Extrem: Other: right hip dressing is c/d/i. Able to dorsi/plantar flex. Calf is supple and nontender. Sensation intact. Pedal pulse intact. Procedures Date of Service Date of Service: 09/13/23 Progress Note: A&P Assessment and plan (1) Status post total replacement of right hip: Status: Acute Plan Continue pain mgmnt Continue Lovenox dvt ppx Continue PT/OT for RTHA - posterior precautions Dispo planning-Pending PT eval, pain mgmnt, rehab placement Time Spent With Patient Time: Total time managing care of this patient today ____ minutes. Quality Stroke Does the patient have a stroke diagnosis?: No VTE Prior VTE?: No VTE Risk Level:: Surgical - very high VTE Device Contraindication: N/A - Device Ordered VTE Drug Contraindication: N/A - Med Ordered
--- NOTE | 2023-09-13 11:45 | PM.DS ---
DS: Providers Provider Date of Service: 09/14/23 Date of admission: 09/11/23 06:44 Primary care physician: Chen Pop MD Consults: 09/11/23 13:01 Consult to Hospitalist Routine Comment: Consulting Provider: Hospitalist Reason For Exam: Routine medical management DS: Diagnosis Discharge Diagnosis (1) Status post total replacement of right hip: Status: Acute DS: Summary Hospital Course Hospital Course: The patient underwent a successful right total hip arthroplasty, they were transferred to PACU and then to the floor to recover. During their stay, their vitals were stable, afebrile at 98.4. Morning of discharge, H/H 8.4/25.9, the patient was transfused 2 units of pRBC's. POD 1 they were started on Lovenox injections for DVT ppx, they also received Physical Therapy services twice a day. Prior to discharge, their dressing was clean dry and intact, and the plan was to be discharged to short term rehab. Time Attestation Discharge coordination time: Less than 30 minutes Quality: Safe Use of Opioids Does Pt have an Active Cancer Diagnosis on the Problem List?: No Quality: Stroke Does the patient have a stroke diagnosis?: No Physical Exam Vital Signs: Vital Signs: Last Vital Signs Temp 98.3 F 09/13/23 07:16 Pulse 70 09/13/23 08:12 Resp 18 09/13/23 07:16 BP 90/60 09/13/23 08:12 Pulse Ox 93 09/13/23 08:12 O2 Del Method Room Air 09/13/23 07:16 O2 Flow Rate 2.0 09/11/23 13:13 BMI result Body Mass Index 30.5 Const: General: cooperative, healthy appearing and no acute distress Resp: Effort & Inspection: normal respiratory effort and able to speak in complete sentences Cardio: Rate: regular rate Peripheral pulses: Peripheral pulses 2+ throughout GI: Palpation (GI): Soft to palpation Skin: Lesions: no lesions Rashes: no rashes Extrem: Other: right hip dressing is c/d/i. Able to dorsi/plantar flex. Calf is supple and nontender. Sensation intact. Pedal pulse intact. DS: Data Data Completed and Pending Pending studies at discharge: Pending at discharge 09/11/23 10:44 Surgical [PTH] Routine Labs on day of discharge: Laboratory Results - last 24 hr 09/13/23 06:05 WBC 6.5 RBC 2.80 L Hgb 9.2 L Hct 27.8 L MCV 99.3 H MCH 32.9 MCHC 33.1 RDW 13.5 Plt Count 112 L MPV 10.6 Immature Gran % (Auto) 0.5 H Neut % (Auto) 72.3 Lymph % (Auto) 13.9 L [place] % (Auto) 11.5 H Eos % (Auto) 1.5 Baso % (Auto) 0.3 Lymph # (Auto) 0.9 L [place] # (Auto) 0.8 Eos # (Auto) 0.1 Baso # (Auto) 0.0 Abs Immat Gran (auto) 0.03 Absolute Neuts (auto) 4.7 Absolute Nucleated RBC 0.000 Nucleated RBC % (auto) 0.0 Sodium 140 Potassium 4.3 Chloride 107 Carbon Dioxide 28 Anion Gap 9 L BUN 29 H Creatinine 1.50 H Estim Creat Clear Calc 32.7 Estimated GFR 34 Fasting Glucose 112 H Calcium 7.9 L Discharge Plan Discharge Anticipated Discharge Date/Time: 09/14/23 09:41 Patient Disposition: Xfer SNF Discharge Diagnosis: s/p RTHA Referrals: Miguel Prado PA-C [Physician [employer] Application [employer]] - 09/26/23 2:00 pm Discharge Medications: New celecoxib 200 mg Capsule 200 mg PO BID 30 Days Qty: 60 0RF acetaminophen 325 mg Tablet 650 mg PO Q6H PRN (Reason: Pain, Mild (Pain Scale 1-3)) 30 Days Qty: 240 0RF enoxaparin 40 mg/0.4 mL Syringe 30 mg subcut Q24H 42 Days Qty: 12.6 0RF oxycodone 10 mg tablet 10 mg PO Q4H PRN (Reason: Pain, Moderate(Pain Scale 4-6)) 7 Days Qty: 42 0RF Rx Instructions: Partial Fill upon patient request. Continued duloxetine 60 mg capsule,delayed release(DR/EC) 60 mg PO DAILY Qty: 90 3RF trazodone 50 mg tablet See Rx Instructions PO BEDTIME Qty: 180 3RF Rx Instructions: 1-2 tabl orally bedtime; pantoprazole 40 mg tablet,delayed release (DR/EC) 40 mg PO BEDTIME montelukast [Singulair] 10 mg Tablet 10 mg PO BEDTIME Ninlaro 3 mg capsule PO Patient Comments: 3 weeks on 1 week off. 09/06/23 starts new cycle, will not take 09/13/23 per Oncologist ropinirole 2 mg tablet 2 mg PO BEDTIME Rx Instructions: administer 1-3 hours before bedtime gabapentin 300 mg capsule 600 mg PO BID lisinopril 5 mg tablet 2.5 mg PO DAILY prochlorperazine maleate 5 mg tablet 10 mg PO DAILY PRN (Reason: Nausea And Vomiting) fluticasone propionate [Allergy Relief (fluticasone)] 50 mcg/actuation spray,suspension 1 spray intranasal DAILY Qty: 16 3RF Rx Instructions: administer into each nostril calcium acetate PO .daily Rx Instructions: calcium 1200 mg vitamin d3 1000 units docusate sodium [Stool Softener] 250 mg capsule 250 mg PO BID acyclovir 400 mg tablet 400 mg PO BID lidocaine HCl [Lidocaine Viscous] 2 % solution 15 ml PO Q4H PRN (Reason: Pain) probiotics See Rx Instructions PO .COMPLEX Rx Instructions: 100mg orally; (DME) SHOWER CHAIR See Rx Instructions .ROUTE .MEDSUPPLY Qty: 1 0RF Rx Instructions: As directed ([facility] [place]) walker [facility] [place] See Rx Instructions .MEDSUPPLY Qty: 1 0RF Rx Instructions: Folding Front wheeled walker (DME) Raised toilet seat See Rx Instructions .ROUTE .MEDSUPPLY Qty: 1 0RF Rx Instructions: duration: lifetime (DME) Powerlift reclinder See Rx Instructions .Route .MEDSUPPLY Qty: 1 0RF Rx Instructions: slim width and depth dorzolamide-timolol 22.3-6.8 mg/mL drops ophthalmic (eye) Discontinued aspirin [Adult Low Dose Aspirin] 81 mg tablet,delayed release (DR/EC) 81 mg PO DAILY Qty: 90 3RF Discharge Orders: Discharge Order (Routine); Ordered 09/14/23 Ordered By: Miya Roth Diet: Advance to usual diet Activity on Discharge: Use cane or walker Stand Alone Forms: Patient Portal Discharge page Activity Restrictions/Additional Instructions: Physical Therapy for total hip arthroplasty: posterior precautions, gait training, ROM, strength Limit stair climbing No showering, no tub bath-keep dressing clean, dry and intact No driving x6 weeks Continue Lovenox once a day x 6 weeks Follow up with [facility] Orthopedics in 2 weeks Care Plan Goals: restore fxn to right hip Health Concerns: none Plan of Treatment: Physical Therapy for total hip arthroplasty: posterior precautions, gait training, ROM, strength Limit stair climbing No showering, no tub bath-keep dressing clean, dry and intact No driving x6 weeks Continue Lovenox once a day x 6 weeks Follow up with [facility] Orthopedics in 2 weeks Assessment: Stable for d/c to SNF
--- NOTE | 2023-09-13 11:47 | MHC.CM.PN ---
PER ORTHO PA PATIENT NOT CLEARED FOR DC. PLAN TO DC TOMORROW TO [facility] VIA [facility]LS. CM WILL CONTINUE TO FOLLOW.
--- NOTE | 2023-09-13 16:12 | PM.EVENT ---
Event Note Date of Service: 09/13/23 Event Note: hypotnesion multifactorial (not sepsis) likely anasthesia, pain meds, dehydration hold lisinopril, 1L LR, monitor Time Spent With Patient Time: Total time managing care of this patient today ____ minutes.
[2023-09-14 03:55] VITALS: BP 107/56; PULSE 73; RESP 16; TEMP 36.9; O2SAT 91
[2023-09-14 08:00] VITALS: BP 100/50; PULSE 67; RESP 17; TEMP 36.8; O2SAT 94
[2023-09-14 08:25] VITALS: BP 100/50; PULSE 71; O2SAT 91
--- NOTE | 2023-09-14 08:59 | PC.NURSE ---
Provider messaged for blood consent.
--- NOTE | 2023-09-14 10:20 | PC.NURSE ---
Pt stating she does not want to get the blood transfusion after stating she would accept. Provider notified.
--- NOTE | 2023-09-14 11:22 | MHC.CM.PN ---
PT CLEARED TO DC TO [facility] TODAY [phone], AND SPOKE TO THE NURSE PER DISCUSSION, BLS TRANSPORT WILL BE BOOKED FOR 1400 HOURS NURSE TO NURSE GIVEN CM MET WITH PT WHO IS AWARE OF DC TIME FOLLOW UP IMM DELIVERED [facility] [address]OM [address] TODAY AT 1400 HOURS VIA [facility]
== END 2023-09-14 14:15 | disposition skilled nursing facility (03) | DRG 470 ==
LOC: HO.SSSA 06:49 → HO.S3 11:24
PROVIDERS: Orthopaedic Surgery; Physician Assistant; Admitting Provider Physician Assistant; PCP Internal Medicine; Visit Provider Physician Assistant
PROC: 0SR903A Replacement of Right Hip Joint with Ceramic Synthetic Substitute, Uncemented, Open Approach (ICD-10-PCS; CPT 27130; principal; 2023-09-11 08:40)
DX: M16.11 Unilateral primary osteoarthritis, right hip (principal); C90.00 Multiple myeloma not having achieved remission; K21.9 Gastro-esophageal reflux disease without esophagitis; I95.9 Hypotension, unspecified; E86.0 Dehydration; I10 Essential (primary) hypertension; Z87.891 Personal history of nicotine dependence; Z79.51 Long term (current) use of inhaled steroids; Z79.899 Other long term (current) drug therapy
CPT/HCPCS: 36415; 72170; 80048; 85025; 86850; 86900; 86901; 86923; 87640; 87641; 88304; 88311; 93005; 97110; 97116; 97162; 97166; 97530; 97535; 99024; C1776; J0131; J0690; J1100; J1170; J1650; J1920; J2250; J2371; J2405; J2704; J2795; J3010; J7120

== ENCOUNTER → 2023-09-11 06:44 | Outpatient (BNV) | payer MEDICARE, OTHER, SELFPAY | PROVIDERS: Admitting Provider Physician Assistant; PCP Internal Medicine; Visit Provider Orthopaedic Surgery | DX: M16.11 Unilateral primary osteoarthritis, right hip (principal); Z96.641 Presence of right artificial hip joint | CPT/HCPCS: 27130; 99024 ==

== ENCOUNTER → 2023-09-11 06:44 | Outpatient (BNV) | payer MEDICARE, OTHER, SELFPAY | PROVIDERS: Admitting Provider Physician Assistant; PCP Internal Medicine; Visit Provider Physician Assistant | DX: M16.11 Unilateral primary osteoarthritis, right hip (principal) | CPT/HCPCS: 99222; 99499 ==

== ENCOUNTER 2023-09-26 12:30 | Outpatient (RCR) | payer MEDICARE, OTHER, SELFPAY | END 2023-11-22 14:50 | disposition home or self-care (01) | LOC: HO.PT 12:30 | PROVIDERS: Visit Provider Physician Assistant | DX: Z96.641 Presence of right artificial hip joint (principal) ==

== ENCOUNTER 2023-09-26 13:36 | Outpatient (AMB) | payer MEDICARE, OTHER, SELFPAY ==
--- NOTE | 2023-09-26 14:06 | A.OFFVIS_ITS ---
Intake Intake Visit Reasons: PO- RT OUSMANE 09/11/23 NE Intake Note: Lillian a 77 year old female presents today for a post operative right OUSMANE on 09/11/23 NE. Patient reports she is doing well, states no concerns today. Allergies No Known Allergies Allergy (Verified 09/26/23 14:13) HPI PO- RT OUSMANE 09/11/23 NE HPI Details 77-year-old female who returns to the [facility] today for post-op right OUSMANE, 09/11/[address] Cook. She states she has no pain and is doing well overall. She is taking oxycodone for her pain as instructed. She has no other concerns today. [facility] Medical History Personal history of COVID-19 Pain Slow to wake up after anesthesia Achalasia of esophagus Otitis media of right ear Cataract RLS (restless legs syndrome) Insomnia Anxiety Hx of breast cancer Post-nasal drip Multiple myeloma Ankle fracture, left GERD (gastroesophageal reflux disease) Hypertension Surgical History Hx of bilateral cataract extraction History of lumpectomy of right breast History of History of surgery on left wrist History of colonoscopy H/O left knee surgery Status post ORIF of fracture of ankle (~2020) Family History Other Mental health disorder Social History Household Members: None Household Members Other:: , 2 sons, Housing: House Are you a primary health care consultant to a significant other at home: No Do you presently have visiting nurse or other home services: No Comment: pressure Patient Tobacco Use Status: Former Tobacco user Quit Date: s Tobacco use type: Cigarette Years Smoked: 2 e-Cigarette/Vaping Use: Never Used Second Hand Smoke Exposure: No service: No Current occupational status: retired Cognitive needs: No Hearing needs: No Vision needs: Yes Review of Systems Const All systems reviewed & are unremarkable except as noted in HPI and below Physical Exam Extrem Other: Right hip: Incision clean, dry and intact. No erythema or drainage. No pain with ROM or hip flexion. NVI. Assessment & Plan Assessment & Plan (1) Status post total replacement of right hip: Code(s): Z96.641 - Presence of right artificial hip joint Plan [place] removed, steri strips applied. She will begin to transition to Outpatient PT to continue working on Gait training, ROM and quad strength. No driving for another 4 weeks. She will require ppx abx for dental procedures. She will f/u in 4 weeks, sooner if needed. Orders: Orders PT Evaluation and Treatment Today Z96.641 - Presence of right artificial hip joint Medications: New cane As directed 1 ea 0RF Patient Instructions: Scribed for Miguel Prado PA-C, by Suleiman Brantley medical science liaison, on 09/26/2023 at 2:00 PM EST. I, Miguel Prado PA-C, have personally reviewed and agree with the information entered by the scribe. Coding Level of Care Code Global (40991) Diagnoses Status post total replacement of right hip Z96.641
== END 2023-09-26 15:01 | disposition home or self-care (01) ==
PROVIDERS: PCP Internal Medicine; Visit Provider Physician Assistant
DX: Z96.641 Presence of right artificial hip joint (principal)
CPT/HCPCS: 99024

== ENCOUNTER → 2023-09-26 13:36 | Outpatient (BNVA) | payer MEDICARE, OTHER, SELFPAY | PROVIDERS: PCP Internal Medicine; Visit Provider Physician Assistant | DX: Z47.1 Aftercare following joint replacement surgery (principal); Z96.641 Presence of right artificial hip joint | CPT/HCPCS: 99212 ==

== ENCOUNTER 2023-10-16 12:56 | Outpatient (AMB) | payer MEDICARE, OTHER, SELFPAY ==
--- NOTE | 2023-10-16 13:20 | A.OFFVIS_ITS ---
Intake Intake Visit Reasons: POI - RT OUSMANE 09/11/23 NE - Wound check Intake Note: Lillian a 77 year old female presents today for a post operative right OUSMANE on 09/11/23 NE. Patient reports having numbness and tingling in both of her feet that goes into her ankle. She has concerns of a line across the anterior aspect of ankle. She continues to have soreness in her hip. Allergies No Known Allergies Allergy (Verified 10/16/23 13:26) Medication List - Last Reconciled 10/16/23 by Miguel Prado PA-C acetaminophen 650 mg (2 x 325 mg) PO Q6H PRN 30 days acyclovir 400 mg PO BID calcium acetate calcium 1200 mg vitamin d3 1000 units cane As directed celecoxib 200 mg PO BID 30 days docusate sodium (Stool Softener) 250 mg PO BID dorzolamide-timolol 22.3-6.8 mg/mL ophthalmic (eye) duloxetine 60 mg PO DAILY enoxaparin 30 mg (0.3 mL) subcut Q24H 42 days fluticasone propionate 50 mcg/actuation (Allergy Relief (fluticasone)) 1 spray intranasal DAILY gabapentin 600 mg (2 x 300 mg) PO BID 90 days ixazomib (Ninlaro) mg PO lidocaine HCl 2% (Lidocaine Viscous) 15 mL PO Q4H PRN lisinopril 2.5 mg PO DAILY montelukast (Singulair) 10 mg PO BEDTIME oxycodone 5 mg PO Q4H PRN 7 days pantoprazole 40 mg PO BEDTIME [Powerlift reclinder slim width and depth ] [probiotics 100mg orally; ] prochlorperazine maleate 10 mg PO DAILY PRN [Raised toilet seat duration: lifetime] ropinirole 2 mg PO BEDTIME [SHOWER CHAIR As directed] trazodone 1-2 tabl orally bedtime; walker Folding Front wheeled walker HPI POI - RT OUSMANE 09/11/23 NE - Wound check HPI Details 77-year-old female who returns to the [facility] today for post-op right OUSMANE, with Dr. Cook. She states she has numbness and tingling in her bilateral feet which radiates up to her ankle. She also c/o a line across the anterior aspect of her ankle and continues to have soreness in her hip. She denies any back pain. [facility] Medical History (Updated 10/03/23 @ 09:29 by Miguel Prado PA-C) Osteoarthritis of right hip Personal history of COVID-19 Pain Slow to wake up after anesthesia Achalasia of esophagus Otitis media of right ear Cataract RLS (restless legs syndrome) Insomnia Anxiety Hx of breast cancer Post-nasal drip Multiple myeloma Ankle fracture, left GERD (gastroesophageal reflux disease) Hypertension Surgical History Hx of bilateral cataract extraction History of lumpectomy of right breast History of History of surgery on left wrist History of colonoscopy H/O left knee surgery Status post ORIF of fracture of ankle (~2020) Family History Other Mental health disorder Social History Household Members: None Household Members Other:: , 2 sons, Housing: House Are you a primary director of patient care to a significant other at home: No Do you presently have visiting nurse or other home services: No Comment: pressure Patient Tobacco Use Status: Former Tobacco user Quit Date: Tobacco use type: Cigarette Years Smoked: 2 e-Cigarette/Vaping Use: Never Used Second Hand Smoke Exposure: No service: No Current occupational status: retired Cognitive needs: No Hearing needs: No Vision needs: Yes Review of Systems Const All systems reviewed & are unremarkable except as noted in HPI and below Physical Exam Extrem Other: Right hip: Incision well healed. There is no surrounding erythema. BLE is sore to touch. she does have a slight discoloration on the toenail on both feet. Pulses are present. Decreased sensation on the RLE below the ankle when compared to the contralateral side. NVI. Assessment & Plan Assessment & Plan (1) Status post total replacement of right hip: Code(s): Z96.641 - Presence of right artificial hip joint Plan Patient dose have a history of cancer as well as poor circulation and is taking Lovenox s/p right OUSMANE. A STAT US of the BLE was ordered just to be sure that there is no concerns for a blood clot which may be causing atypical symptoms and this is scheduled for today. I did not see any evidence of infection. She will follow-up as planned. Orders: Orders US venous duplex LE RT Today R22.43 - Localized swelling, mass and lump, lower limb, bilateral, R60.9 - Edema, unspecified, Z96.641 - Presence of right artificial hip joint Patient Instructions: Scribed for Miguel Prado PA-C, by Suleiman Brantley director medical science, on 10/16/2023 at 1:30 PM EST. I, Miguel Prado PA-C, have personally reviewed and agree with the information entered by the scribe. Coding Level of Care Code Global (35649) Diagnoses Status post total replacement of right hip Z96.641
== END 2023-10-16 14:27 | disposition home or self-care (01) ==
PROVIDERS: PCP Internal Medicine; Visit Provider Physician Assistant
DX: Z96.641 Presence of right artificial hip joint (principal)
CPT/HCPCS: 99024

== ENCOUNTER → 2023-10-16 12:56 | Outpatient (BNVA) | payer MEDICARE, OTHER, SELFPAY | PROVIDERS: PCP Internal Medicine; Visit Provider Physician Assistant ==

== ENCOUNTER 2023-10-16 14:37 | Outpatient (REF) | payer MEDICARE, OTHER, SELFPAY ==
--- NOTE | ~2023-10-16 | US_ITS ---
EXAMINATION: US VENOUS ULTRASOUND WITH DOPPLER LOWER EXTREMITY, BILATERAL CLINICAL INFORMATION: Bilateral lower extremity swelling COMPARISON: None available. TECHNIQUE: Ultrasound of the deep veins is performed from the hip to the calf with compression sonography and color and pulse Doppler assessment. Spectral analysis with color-flow imaging is performed. FINDINGS: RIGHT: There is normal venous compression and respiratory variation and augmented flow. The visualized common femoral vein, superficial femoral vein, profunda femoral vein, popliteal vein, and the trifurcation region shows no evidence of deep venous thrombosis. There is no significant popliteal fossa cyst. LEFT: There is normal venous compression and respiratory variation and augmented flow. The visualized common femoral vein, superficial femoral vein, profunda femoral vein, popliteal vein, and the trifurcation region shows no evidence of deep venous thrombosis. There is no significant popliteal fossa cyst. If the patient's symptoms persist, followup ultrasound in 5 days 7 days might be of value to exclude proximal propagation from a non-visualized calf vein. US/US venous duplex LE BI IMPRESSION: No DVT demonstrated in the right and left lower extremity.
== END 2023-10-16 14:38 | disposition home or self-care (01) ==
LOC: HO.US 14:37
PROVIDERS: PCP Internal Medicine; Visit Provider Physician Assistant
DX: R22.43 Localized swelling, mass and lump, lower limb, bilateral (principal); Z96.641 Presence of right artificial hip joint
CPT/HCPCS: 93970; 99212

== ENCOUNTER 2023-10-23 13:14 | Outpatient (AMB) | payer MEDICARE, OTHER, SELFPAY ==
--- NOTE | 2023-10-23 13:16 | A.OFFVIS_ITS ---
Intake Vital Signs 10/23/23 13:17 Height 5 ft 5.5 in Weight 155 lb BMI 25.4 Intake Visit Reasons: PO- RT OUSMANE 09/11/23 NE Intake Note: Lillian a 77 year old female presents today for a post operative right OUSMANE on 09/11/23 NE. Patient reports that she is doing well, she does continue to have some pain. She is concerned of bilateral foot and ankle numbness and tingling. Allergies No Known Allergies Allergy (Verified 10/16/23 13:26) HPI PO- RT OUSMANE 09/11/23 NE HPI Details 77-year-old female who returns to the [facility] today for post-op right OUSMANE, 09/11/[address] Cook. She continues to have mild pain however she is doing well overall. She also c/o numbness and tingling in her bilateral foot and ankle. She has no other concerns today. [facility] Medical History (Updated 10/03/23 @ 09:29 by Miguel Prado PA-C) Osteoarthritis of right hip Personal history of COVID-19 Pain Slow to wake up after anesthesia Achalasia of esophagus Otitis media of right ear Cataract RLS (restless legs syndrome) Insomnia Anxiety Hx of breast cancer Post-nasal drip Multiple myeloma Ankle fracture, left GERD (gastroesophageal reflux disease) Hypertension Surgical History Hx of bilateral cataract extraction History of lumpectomy of right breast History of History of surgery on left wrist History of colonoscopy H/O left knee surgery Status post ORIF of fracture of ankle (~2020) Family History Other Mental health disorder Social History Household Members: None Household Members Other:: , 2 sons, Housing: House Are you a primary care aid to a significant other at home: No Do you presently have visiting nurse or other home services: No Comment: pressure Patient Tobacco Use Status: Former Tobacco user Quit Date: Tobacco use type: Cigarette Years Smoked: 2 e-Cigarette/Vaping Use: Never Used Second Hand Smoke Exposure: No service: No Current occupational status: retired Cognitive needs: No Hearing needs: No Vision needs: Yes Review of Systems Const All systems reviewed & are unremarkable except as noted in HPI and below Physical Exam Vital Signs: BMI result Body Mass Index 25.4 Extrem Other: Right hip: Incision well healed. There is no surrounding erythema. BLE is sore to touch. she does have a slight discoloration on the toenail on both feet. Pulses are present. Decreased sensation on the RLE below the ankle when compared to the contralateral side. NVI. Assessment & Plan Assessment & Plan (1) Status post total replacement of right hip: Code(s): Z96.641 - Presence of right artificial hip joint Plan Reassurance was given that there is no evidence of limp compromising concerns at this time. She does have good circulation, temperature and color to the bilateral extremities. I also discussed with her the common symptoms associated with multiple myeloma which are consistent with peripheral neuropathy . This has likely exacerbated her symptoms due to surgical intervention which has been resolved. I did touch base with her oncologist to discuss her upcoming appointment with them next month and see if she needs to be seen sooner. Otherwise, she has a post-op appointment scheduled next week with Dr. Cook for her routine total joint replacement which she will attend. Patient Instructions: Scribed for Miguel Prado PA-C, by Suleiman Brantley medical laboratory technologist, on 10/23/2023 at 1:15 PM EST. Miguel Odom PA-C, have personally reviewed and agree with the information entered by the scribe. Coding Level of Care Code Global (43845) Diagnoses Status post total replacement of right hip Z96.641
[2023-10-23 13:17] VITALS: BMI 25.4
== END 2023-10-23 13:59 | disposition home or self-care (01) ==
PROVIDERS: PCP Internal Medicine; Visit Provider Physician Assistant
DX: Z96.641 Presence of right artificial hip joint (principal)
CPT/HCPCS: 99024

== ENCOUNTER → 2023-10-23 13:14 | Outpatient (BNVA) | payer MEDICARE, OTHER, SELFPAY | PROVIDERS: PCP Internal Medicine; Visit Provider Physician Assistant | DX: Z47.1 Aftercare following joint replacement surgery (principal); Z96.641 Presence of right artificial hip joint | CPT/HCPCS: 99212 ==

== ENCOUNTER 2023-10-25 15:36 | Outpatient (AMB) | payer MEDICARE, OTHER, SELFPAY ==
[2023-10-25 15:54] VITALS: BP 112/68; PULSE 82; TEMP 37.1; O2SAT 98; BMI 26.7
--- NOTE | 2023-10-25 15:54 | AM.OFFWIN_ITS ---
Intake Vital Signs 10/25/23 15:54 Height 5 ft 5.5 in Weight 163 lb BMI 26.7 BP 112/68 Blood Pressure Location Lt brachial Position Sitting Pulse 82 Pulse Source Pulse Oximeter Temp 98.7 F Temp Source Oral Pulse Oximetry (%) 98 Oxygen Delivery Method Room Air Intake Visit Reasons: EST/toe discoloration/pins & needles(lobby) Patient Tobacco Use Status: Former Tobacco user Quit Date: Allergies No Known Allergies Allergy (Verified 10/16/23 13:26) HPI HPI Comments History of Present Illness Details 77 y/o female patient who presents to [facility] in clinic with c/o discoloration of bilateral toes. She reports in the past 3 weeks she noticed her toes on both feet changing color to bluish. She also reports numbness and tingling. Reports some mild swelling of feet. Pt with H/o Kidney disease and Multiple Myeloma, currently on Chemo - 3 weeks on and 3 weeks Off. She is being followed by [facility], next appointment Saturday. [facility] Medical History (Updated 10/03/23 @ 09:29 by Miguel Prado PA-C) Osteoarthritis of right hip Personal history of COVID-19 Pain Slow to wake up after anesthesia Achalasia of esophagus Otitis media of right ear Cataract RLS (restless legs syndrome) Insomnia Anxiety Hx of breast cancer Post-nasal drip Multiple myeloma Ankle fracture, left GERD (gastroesophageal reflux disease) Hypertension Surgical History Hx of bilateral cataract extraction History of lumpectomy of right breast History of History of surgery on left wrist History of colonoscopy H/O left knee surgery Status post ORIF of fracture of ankle (~2020) Family History Other Mental health disorder Social History Household Members: None Household Members Other:: , 2 sons, Housing: House Are you a primary healthcare recruiter to a significant other at home: No Do you presently have visiting nurse or other home services: No Comment: pressure Patient Tobacco Use Status: Former Tobacco user Quit Date: Tobacco use type: Cigarette Years Smoked: 2 e-Cigarette/Vaping Use: Never Used Second Hand Smoke Exposure: No service: No Current occupational status: retired Cognitive needs: No Hearing needs: No Vision needs: Yes Review of Systems Const All systems reviewed & are unremarkable except as noted in HPI and below Physical Exam Vital Signs: Last Vital Signs Temp 98.7 F 10/25/23 15:54 Pulse 82 10/25/23 15:54 BP 112/68 10/25/23 15:54 Pulse Ox 98 10/25/23 15:54 Oxygen Delivery Method Room Air 10/25/23 15:54 BMI result Body Mass Index 26.7 Skin Nails: clubbing (Toes nails) and discolored (toe nails) Extrem Right lower extremity: foot (Toes and Nails bluish to dark in color, normal equal pulses) Details: toes with normal ROM Left lower extremity: foot (Toes and Nails bluish to dark in color, normal equal pulses. 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 - DDx's Multiple Myeloma mimicking small vessel vasculitis vs Chemo medication side effects. - Not clear on the etiology at this point. Coding Level of Care Code Est Pt Level 3 (75205) Diagnoses Small vessel vasculitis I77.6 Time Spent (min) 15
== END 2023-10-25 16:22 | disposition home or self-care (01) ==
PROVIDERS: PCP Internal Medicine; Visit Provider Nurse Practitioner Family
DX: I77.6 Arteritis, unspecified (principal); C90.00 Multiple myeloma not having achieved remission
CPT/HCPCS: 99213

== ENCOUNTER 2023-10-30 16:52 | Emergency (ER) | payer MEDICARE, OTHER, SELFPAY ==
--- NOTE | ~2023-10-30 | US_ITS ---
EXAMINATION: US VENOUS ULTRASOUND WITH DOPPLER LOWER EXTREMITY, BILATERAL CLINICAL INFORMATION: Edema, pain. COMPARISON: Bilateral lower extremity ultrasound 10/16/2023. TECHNIQUE: Ultrasound of the deep veins is performed from the hip to the calf with compression sonography and color and pulse Doppler assessment. Spectral analysis with color-flow imaging is performed. FINDINGS: RIGHT: There is normal venous compression and respiratory variation and augmented flow. The visualized common femoral vein, superficial femoral vein, profunda femoral vein, popliteal vein, and the trifurcation region shows no evidence of deep venous thrombosis. There is no significant popliteal fossa cyst. LEFT: There is normal venous compression and respiratory variation and augmented flow. The visualized common femoral vein, superficial femoral vein, profunda femoral vein, popliteal vein, and the trifurcation region shows no evidence of deep venous thrombosis. There is no significant popliteal fossa cyst. If the patient's symptoms persist, followup ultrasound in 5 days 7 days might be of value to exclude proximal propagation from a non-visualized calf vein. US/US venous duplex LE BI IMPRESSION: No DVT demonstrated in the bilateral lower extremities.
--- NOTE | ~2023-10-30 | US_ITS ---
EXAMINATION: ULTRASOUND LOWER EXTREMITY ARTERIAL, BILATERAL TECHNIQUE: COLOR-FLOW DUPLEX IMAGING OF THE BILATERAL LOWER EXTREMITY ARTERIAL SYSTEM. VELOCITY MEASUREMENTS THROUGHOUT THE FEMORAL ARTERIES. CLINICAL INFORMATION: Discolored toes COMPARISON: None. FINDINGS: RIGHT FEMORAL RUNOFF VELOCITIES: The right common femoral artery measures 109cm/s and is triphasic. The right profunda femoral artery measures 72cm/s and is biphasic. Right proximal superficial femoral artery measures 78 cm/s and is biphasic. Mid superficial femoral artery measures 82cm/s and is biphasic. Distal right superficial femoral artery [id number] and is biphasic. Right popliteal velocity measures 101cm/s and is biphasic. Posterior tibial velocity is 81cm/s and flow is biphasic. Peroneal velocity is 52cm/s and flow is biphasic. Anterior tibial velocity is 68cm/s and flow is biphasic. Dorsal pedis velocity is 83cm/s and flow is biphasic. Right MELANIA: Not obtained LEFT FEMORAL RUNOFF VELOCITIES: The left common femoral artery measures 98cm/s and is biphasic. The left profunda femoral artery measures 48cm/s and is triphasic. Left proximal superficial femoral artery measures 84 cm/s and is biphasic. Mid superficial femoral artery measures 62cm/s and is biphasic. Distal left superficial femoral artery [id number] and is biphasic. Left popliteal velocity measures 67cm/s and is biphasic. Posterior tibial velocity is 98cm/s and flow is biphasic. Peroneal velocity is 62cm/s and flow is biphasic. Anterior tibial velocity is 79cm/s and flow is biphasic. Dorsal pedis velocity is 29cm/s and flow is biphasic. Left MELANIA: Not obtained US/US arterial duplex LE BI IMPRESSION: RIGHT: Patency of the visualized vasculature of the right lower extremity. Essentially biphasic waveforms throughout the majority of the right lower extremity suggesting hemodynamic alterations in vascular flow. LEFT: Patency of the visualized vasculature of the left lower extremity. Essentially biphasic waveforms throughout the majority of the left lower extremity suggesting hemodynamic alterations in vascular flow.
[2023-10-30 17:21] VITALS: BP 161/87; PULSE 70; RESP 16; O2SAT 96; BMI 26.9
--- NOTE | 2023-10-30 17:21 | ED_ITS ---
HPI - General Adult General Chief complaint: General Medical Stated complaint: referred by pcp for possible blood clot in leg Time Seen by Provider: 10/30/23 23:38 Source: patient Mode of arrival: ambulatory Limitations: no limitations History of Present Illness HPI narrative: Patient with history of multiple myeloma on Ixazomib had right hip surgery on 09/11/2023 on Lovenox and aspirin comes here as patient noticed bluish discoloration of the toes for last 3 weeks got worse today patient was seen by PCP on 10/25 suspecting vasculitis venous Doppler was negative on that day patient does have slight discomfort in the ankle and toes no calf swelling no shortness of breath no sudden increase in pain no involvement of the fingers Related Data Home Medications Medication Instructions Recorded Confirmed acyclovir 400 mg tablet 400 mg PO BID 11/30/21 10/16/23 calcium acetate PO .daily 11/30/21 10/16/23 docusate sodium 250 mg capsule 250 mg PO BID 11/30/21 10/16/23 (Stool Softener) lidocaine HCl 2 % mucosal solution 15 ml PO Q4H PRN Pain 08/21/22 10/16/23 (Lidocaine Viscous) probiotics See Rx Instructions PO .COMPLEX 08/21/22 10/16/23 dorzolamide 22.3 mg-timolol 6.8 ophthalmic (eye) 08/13/23 10/16/23 mg/mL eye drops lisinopril 5 mg tablet 2.5 mg PO DAILY 08/28/23 10/16/23 prochlorperazine maleate 5 mg 10 mg PO DAILY PRN Nausea And 08/28/23 10/16/23 tablet Vomiting ixazomib 3 mg capsule (Ninlaro) mg PO 09/04/23 10/16/23 montelukast 10 mg tablet 10 mg PO BEDTIME 09/04/23 10/16/23 (Singulair) pantoprazole 40 mg tablet,delayed 40 mg PO BEDTIME 09/04/23 10/16/23 release ropinirole 2 mg tablet 2 mg PO BEDTIME 09/05/23 10/16/23 Previous Rx's Medication Instructions Recorded duloxetine 60 mg capsule,delayed 60 mg PO DAILY #90 caps 02/25/23 release trazodone 50 mg tablet See Rx Instructions PO BEDTIME 02/25/23 #180 tabs fluticasone propionate 50 1 spray intranasal DAILY #16 grams 07/22/23 mcg/actuation nasal spray,suspension (Allergy Relief (fluticasone)) Powerlift reclinder #1 ea 09/05/23 Raised toilet seat #1 ea 09/05/23 SHOWER CHAIR #1 ea 09/05/23 acetaminophen 325 mg tablet 650 mg (2 x 325 mg) PO Q6H PRN 09/13/23 Pain, Mild (Pain Scale 1-3) 30 days #240 tabs celecoxib 200 mg capsule 200 mg PO BID 30 days #60 caps 09/13/23 enoxaparin 40 mg/0.4 mL 30 mg (0.3 mL) subcut Q24H 42 days 09/13/23 subcutaneous syringe #12.6 mL cane #1 ea 09/26/23 walker #1 ea 10/03/23 oxycodone 5 mg tablet 5 mg PO Q4H PRN Pain, 10/07/23 Moderate(Pain Scale 4-6) 7 days #42 tabs gabapentin 300 mg capsule 600 mg (2 x 300 mg) PO BID 90 days 10/16/23 #360 caps amlodipine 2.5 mg tablet 2.5 mg PO DAILY #30 tabs 10/31/23 Allergies Allergy/AdvReac Type Severity Reaction Status Date / Time No Known Allergies Allergy Verified 10/30/23 17:20 Review of Systems 2 Review of Systems: Yes all other systems are reviewed and are negative [facility] Past Medical History Medical History (Updated 10/31/23 @ 00:22 by Sony Curtis MD) Osteoarthritis of right hip Personal history of COVID-19 Pain Slow to wake up after anesthesia Achalasia of esophagus Otitis media of right ear Cataract RLS (restless legs syndrome) Insomnia Anxiety Hx of breast cancer Post-nasal drip Multiple myeloma Ankle fracture, left GERD (gastroesophageal reflux disease) Hypertension Surgical History Hx of bilateral cataract extraction History of lumpectomy of right breast History of History of surgery on left wrist History of colonoscopy H/O left knee surgery Status post ORIF of fracture of ankle (~2020) Family History Family History Other Mental health disorder Social History Social History Household Members: None Household Members Other:: , 2 sons, Housing: House Are you a primary neurocritical care physician to a significant other at home: No Do you presently have visiting nurse or other home services: No Comment: pressure Patient Tobacco Use Status: Former Tobacco user Quit Date: Tobacco use type: Cigarette Years Smoked: 2 Smoked in Last 30 Days: Yes e-Cigarette/Vaping Use: Never Used Second Hand Smoke Exposure: No Use of substances other than those prescribed or required for medical reasons: No Advance Directives: No Advance Directives Information Provided: Yes service: No Current occupational status: retired Cognitive needs: No Hearing needs: No Vision needs: Yes Physical Exam ED Vital Signs: Vital Signs - 24 hr 10/30/23 17:21 10/30/23 21:22 10/30/23 23:34 Temperature 98.8 F 98.2 F Pulse Rate 70 65 59 Respiratory Rate 16 18 16 Blood Pressure 161/87 H 158/74 H 161/77 H Pulse Oximetry 96 94 96 Oxygen Delivery Method Room Air Room Air Room Air BMI result Body Mass Index 26.9 Appearance: Alert. Oriented X3. No acute distress. Neck: Normal inspection. Neck supple. CVS: Normal heart rate and rhythm. Pulses normal. Respiratory: No respiratory distress. Equal air entry bilateral, Abdomen: Soft and nontender. Bowel sounds are present, no mass palpable, Skin: Skin warm and dry. Normal skin color. Normal skin turgor. Extremities: No lower extremity edema. No calf tenderness slight dusky discoloration of the toes specially on the left leg without temperature difference dorsalis pedis 2+ bilateral sensation intact Neuro: Oriented X 3. No motor deficit. Course Course Course Narrative: RME: 77 year-old F w/ PMHx anxiety, GERD, HTN, Anxiety, RLS, CKD, Multiple myeloma currently on chemo, s/p R hip replacement on 09/11/23 w/Dr. Cook currently on Lovenox since surgery. presenting to the ED c/o bilateral toe discoloration x few weeks. Had Venous US on 10/16/23that was negative for DVT +b/l LE pitting edema. +bilateral toenail discoloration. Distal pulses intact. No erythema or warmth Labs, US venous/arterial ordered Full HPI, ROS and PE to be performed by primary ED provider. 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 possible side effect of chemotherapy/Raynaud's phenomena will start patient on amlodipine 2.5 mg daily for now advised to continue Lovenox and aspirin follow with vascular and oncologist Differential Diagnosis Differential Diagnoses: The differential diagnosis associated with the presentation includes Acute arterial occlusion/DVTs/Raynaud's phenomena/vasospastic disease/vasculitis Admission/Observation Consideration of admission/observation: Escalation of care including admission/observation considered Lab Data [facility] Lab Attestation statement: I reviewed the patient's lab results. 10/30/23 18:26 10/30/23 18:26 Labs: Lab Results 10/30/23 Range/Units 18:26 WBC 4.0 L (4.8-10.8) X10*3/uL RBC 4.38 D (4.20-5.50) X10*6/uL Hgb 13.4 D (12.0-16.0) g/dl Hct 41.6 D (37.0-47.0) % MCV 95.0 (80.0-98.0) fL MCH 30.6 (27.0-33.0) pg MCHC 32.2 (31.0-35.0) g/dl RDW 12.7 (11.0-16.0) % Plt Count 218 D (160-400) X10*3/uL MPV 9.6 (9.4-12.3) fL Immature Gran % (Auto) 0.0 (0.0-0.4) % Neut % (Auto) 55.6 (45-73) % Lymph % (Auto) 31.3 (20-40) % [place] % (Auto) 8.9 (2-11) % Eos % (Auto) 3.0 (0-4) % Baso % (Auto) 1.2 (0-2) % Lymph # (Auto) 1.3 (1.2-4.9) X10*3/uL [place] # (Auto) 0.4 (0.1-1.2) X10*3/uL Eos # (Auto) 0.1 (0.0-0.4) X10*3/uL Baso # (Auto) 0.1 (0.0-0.2) X10*3/uL Abs Immat Gran (auto) 0.00 (0.00-0.03) X10*3/uL Absolute Neuts (auto) 2.2 (2.0-8.3) x10*3/uL Absolute Nucleated RBC 0.000 (0.0-0.012) X10*3/uL Nucleated RBC % (auto) 0.0 (0.0-0.2) /100WBC PT 11.3 (11.1-13.3) SEC INR 0.9 (0.9-1.1) Sodium 142 (135-145) mmol/L Potassium 4.6 (3.3-5.1) mmol/L Chloride 106 (96-108) mmol/L Carbon Dioxide 30 H (22-29) mmol/L Anion Gap 11 L (12-20) BUN 20 H (9-16) mg/dL Creatinine 1.11 (0.5-1.4) mg/dL Estim Creat Clear Calc 43.5 Estimated GFR 48 Random Glucose 98 (60-115) mg/dL Calcium 9.5 D (8.4-10.2) mg/dL Total Bilirubin 0.4 (0.0-1.0) mg/dL Direct Bilirubin 0.1 (0.0-0.5) mg/dL AST 17 (5-31) U/L ALT 12 (0-31) U/L Alkaline Phosphatase 68 (39-117) U/L B-Natriuretic Peptide 38 (<100) pg/mL Total Protein 7.0 (6.5-8.0) g/dL Albumin 3.9 (3.5-5.0) g/dL Independent Interpretation I performed an independent interpretation of an: Ultrasound Radiology Impression Discussion of test interpretation with radiology: I have reviewed the radiologist's reading. External Record Review External record reviewed: Office record Discharge Plan Discharge Clinical Impression: PAD (peripheral artery disease) Patient Disposition: Home, Self-Care Instructions: Peripheral Artery Disease (ED) Additional Instructions: Possible you have side effect from chemotherapy/vasculitis Take amlodipine 2.5 mg daily in the evening it may help continue aspirin Follow-up with your oncologist and vascular surgeon Prescriptions: New amlodipine 2.5 mg tablet 2.5 mg PO DAILY Qty: 30 0RF No Action duloxetine 60 mg capsule,delayed release(DR/EC) 60 mg PO DAILY Qty: 90 3RF trazodone 50 mg tablet See Rx Instructions PO BEDTIME Qty: 180 3RF Rx Instructions: 1-2 tabl orally bedtime; (DME) walker Misc See Rx Instructions .MEDSUPPLY Qty: 1 0RF Rx Instructions: Folding Front wheeled walker oxycodone 5 mg tablet 5 mg PO Q4H PRN (Reason: Pain, Moderate(Pain Scale 4-6)) 7 Days Qty: 42 0RF Rx Instructions: Partial Fill upon patient request. gabapentin 300 mg capsule 600 mg PO BID 90 Days Qty: 360 1RF pantoprazole 40 mg tablet,delayed release (DR/EC) 40 mg PO BEDTIME montelukast [Singulair] 10 mg Tablet 10 mg PO BEDTIME Ninlaro 3 mg capsule PO Patient Comments: 3 weeks on 1 week off. 09/06/23 starts new cycle, will not take 09/13/23 per Oncologist ropinirole 2 mg tablet 2 mg PO BEDTIME Rx Instructions: administer 1-3 hours before bedtime celecoxib 200 mg Capsule 200 mg PO BID 30 Days Qty: 60 0RF acetaminophen 325 mg Tablet 650 mg PO Q6H PRN (Reason: Pain, Mild (Pain Scale 1-3)) 30 Days Qty: 240 0RF enoxaparin 40 mg/0.4 mL Syringe 30 mg subcut Q24H 42 Days Qty: 12.6 0RF lisinopril 5 mg tablet 2.5 mg PO DAILY prochlorperazine maleate 5 mg tablet 10 mg PO DAILY PRN (Reason: Nausea And Vomiting) fluticasone propionate [Allergy Relief (fluticasone)] 50 mcg/actuation spray,suspension 1 spray intranasal DAILY Qty: 16 3RF Rx Instructions: administer into each nostril calcium acetate PO .daily Rx Instructions: calcium 1200 mg vitamin d3 1000 units docusate sodium [Stool Softener] 250 mg capsule 250 mg PO BID acyclovir 400 mg tablet 400 mg PO BID lidocaine HCl [Lidocaine Viscous] 2 % solution 15 ml PO Q4H PRN (Reason: Pain) probiotics See Rx Instructions PO .COMPLEX Rx Instructions: 100mg orally; (DME) SHOWER CHAIR See Rx Instructions .ROUTE .MEDSUPPLY Qty: 1 0RF Rx Instructions: As directed (DME) Raised toilet seat See Rx Instructions .ROUTE .MEDSUPPLY Qty: 1 0RF Rx Instructions: duration: lifetime (DME) Powerlift reclinder See Rx Instructions .Route .MEDSUPPLY Qty: 1 0RF Rx Instructions: slim width and depth (DME) cane Device See Rx Instructions .MEDSUPPLY Qty: 1 0RF Rx Instructions: As directed dorzolamide-timolol 22.3-6.8 mg/mL drops ophthalmic (eye) Referrals: Daren Taylor MD [Physician] - 1 week Interventions: ED Discharge Assessment Last Done: 10/31/23 00:57 Discharge Date/Time: 10/31/23 01:00
[2023-10-30 18:30] LABS: MANUAL DIFF FLAG NO
[2023-10-30 18:31] LABS: Basophils Absolute Auto 0.1 X10*3/uL (0.0-0.2); Basophils Percent Auto 1.2 % (0-2); Eosinophils Absolute Auto 0.1 X10*3/uL (0.0-0.4); Hematocrit 41.6 % (37.0-47.0); Hemoglobin 13.4 g/dl (12.0-16.0); Lymphocytes Absolute Auto 1.3 X10*3/uL (1.2-4.9); Lymphocytes Percent Auto 31.3 % (20-40); Mean Corpuscular HGB Conc 32.2 g/dl (31.0-35.0); Mean Corpuscular Hemoglobin 30.6 pg (27.0-33.0); Mean Platelet Volume 9.6 fL (9.4-12.3); Monocytes Absolute Auto 0.4 X10*3/uL (0.1-1.2); Monocytes Percent Auto 8.9 % (2-11); Neutrophils Absolute Auto 2.2 x10*3/uL (2.0-8.3); Neutrophils Percent Auto 55.6 % (45-73); Platelet Count 218 X10*3/uL (160-400); Red Blood Count 4.38 X10*6/uL (4.20-5.50); Red Cell Distribution Width 12.7 % (11.0-16.0)
[2023-10-30 18:36] LABS: INTERNATIONAL NORM RATIO 0.9 (0.9-1.1); Prothrombin Time 11.3 SEC (11.1-13.3)
--- NOTE | 2023-10-30 18:36 | MHC.EDTECH ---
PATIENT BLOOD DRAWN AND SENT TO LAB .
[2023-10-30 18:47] LABS: Alanine Aminotransferase 12 U/L (0-31); Albumin Level 3.9 g/dL (3.5-5.0); Alkaline Phosphatase 68 U/L (39-117); Anion Gap 11 (12-20); Aspartate Amino Transferase 17 U/L (5-31); Bilirubin Direct 0.1 mg/dL (0.0-0.5); Bilirubin Total 0.4 mg/dL (0.0-1.0); Blood Urea Nitrogen 20 mg/dL (9-16); Calcium 9.5 mg/dL (8.4-10.2); Carbon Dioxide 30 mmol/L (22-29); Chloride 106 mmol/L (96-108); Creatinine Clr Calc Pharmacy 43.5; Estimated Glomerular Filt Rate 48; Glucose Random 98 mg/dL (60-115); Potassium 4.6 mmol/L (3.3-5.1); Sodium 142 mmol/L (135-145)
[2023-10-30 18:53] LABS: B Type Natriuretic Peptide 38 pg/mL (<100)
[2023-10-30 21:22] VITALS: BP 158/74; PULSE 65; RESP 18; TEMP 37.1; O2SAT 94
[2023-10-30 23:34] VITALS: BP 161/77; PULSE 59; RESP 16; TEMP 36.8; O2SAT 96
[2023-10-31] MEDS: amLODIPine Besylate 2.5 MG TABLET PO (00:24)
== END 2023-10-31 01:00 | disposition home or self-care (01) ==
PROVIDERS: Physician Assistant; Emergency Provider Internal Medicine; PCP Internal Medicine
DX: I73.9 Peripheral vascular disease, unspecified (principal); M79.661 Pain in right lower leg; M79.662 Pain in left lower leg; R60.0 Localized edema; I10 Essential (primary) hypertension; C90.00 Multiple myeloma not having achieved remission; Z92.21 Personal history of antineoplastic chemotherapy; Z85.3 Personal history of malignant neoplasm of breast; Z86.011 Personal history of benign neoplasm of the brain
CPT/HCPCS: 36415; 80048; 80076; 83880; 85025; 85610; 93925; 93970; 99284

== ENCOUNTER 2023-10-31 12:19 | Outpatient (REF) | payer MEDICARE, OTHER, SELFPAY ==
--- NOTE | ~2023-10-31 | XR_ITS ---
EXAMINATION: XR PELVIS AND RIGHT HIP CLINICAL INFORMATION: Right total hip replacement. Pain and unspecified hip. COMPARISON: X-ray pelvis 09/11/2023 and 04/29/2023. TECHNIQUE: 2 AP views of the pelvis. Cross table lateral view of the right hip obtained, although visualization limited due to body habitus. FINDINGS: Redemonstration of a right total hip replacement. Hardware appears intact. Bones are diffusely demineralized. Degenerative changes in the left hip. Redemonstration of dense material overlying the left sacrum, previously felt to be related to possible procedure such as augmentation/sacroplasty and correlation with clinical exam recommended for confirmation. Mild degenerative changes in the bilateral sacroiliac joints. Pelvic calcifications are likely vascular. XR/XR pelvis 1-2V IMPRESSION: Skin alanis are present. The left hip is intact and located. IMPRESSION: 1. Redemonstration of a right total hip replacement. Hardware appears intact. 2. Redemonstration of dense material overlying the left sacrum, previously felt to be related to possible procedure such as augmentation/sacral plasty and correlation with clinical exam recommended for confirmation. This study was presented today 11/06/2023 for interpretation. Prompt priority results supplied at this time to the referring provider as requested by the provider.
--- NOTE | ~2023-10-31 | XR_ITS ---
EXAMINATION: XR PELVIS AND RIGHT HIP CLINICAL INFORMATION: Right total hip replacement. Pain and unspecified hip. COMPARISON: X-ray pelvis 09/11/2023 and 04/29/2023. TECHNIQUE: 2 AP views of the pelvis. Cross table lateral view of the right hip obtained, although visualization limited due to body habitus. FINDINGS: Redemonstration of a right total hip replacement. Hardware appears intact. Bones are diffusely demineralized. Degenerative changes in the left hip. Redemonstration of dense material overlying the left sacrum, previously felt to be related to possible procedure such as augmentation/sacroplasty and correlation with clinical exam recommended for confirmation. Mild degenerative changes in the bilateral sacroiliac joints. Pelvic calcifications are likely vascular. XR/XR hip RT 1V IMPRESSION: Skin alanis are present. The left hip is intact and located. IMPRESSION: 1. Redemonstration of a right total hip replacement. Hardware appears intact. 2. Redemonstration of dense material overlying the left sacrum, previously felt to be related to possible procedure such as augmentation/sacral plasty and correlation with clinical exam recommended for confirmation. This study was presented today 11/06/2023 for interpretation. Prompt priority results supplied at this time to the referring provider as requested by the provider.
== END 2023-10-31 12:20 | disposition home or self-care (01) ==
LOC: HO.HOSX 12:19
PROVIDERS: Visit Provider Orthopaedic Surgery
DX: M25.551 Pain in right hip (principal); I77.6 Arteritis, unspecified; Z47.1 Aftercare following joint replacement surgery; Z96.641 Presence of right artificial hip joint
CPT/HCPCS: 72170; 73501; 99212

== ENCOUNTER 2023-10-31 13:38 | Outpatient (AMB) | payer MEDICARE, OTHER, SELFPAY ==
--- NOTE | 2023-10-31 13:57 | A.OFFVIS_ITS ---
Intake Intake Visit Reasons: PO- RT OUSMANE 09/11/23 NE Intake Note: Lillian a 77 year old female presents today for a post operative right OUSMANE on 09/11/23 NE. Patient reports that she is is having groin pain, this is found mostly in the morning. This feels better once she starts moving for the day. While at [facility] she developed significant edema, which has improved. She experincing bluish color on the toes and sole of her foot, she was prescribed medication which has not yet helped. Allergies No Known Allergies Allergy (Verified 10/30/23 17:20) HPI PO- RT OUSMANE 09/11/23 NE HPI Details Lillian is a 77 year old woman who presents ~7 weeks S/P right OUSMANE. She says she is having groin pain, primarily in the mornings which improves throughout the day. She also reports having significant edema post-operatively, as well as blue discoloration to her right foot & toes. She says her swelling has improved but the color remains. She currently resides at [facility]. [facility] Medical History (Updated 11/01/23 @ 07:03 by Maximino Cook MD) Osteoarthritis of right hip Personal history of COVID-19 Pain Slow to wake up after anesthesia Achalasia of esophagus Otitis media of right ear Cataract RLS (restless legs syndrome) Insomnia Anxiety Hx of breast cancer Post-nasal drip Multiple myeloma Ankle fracture, left GERD (gastroesophageal reflux disease) Hypertension Surgical History Hx of bilateral cataract extraction History of lumpectomy of right breast History of History of surgery on left wrist History of colonoscopy H/O left knee surgery Status post ORIF of fracture of ankle (~2020) Family History Other Mental health disorder Social History Household Members: None Household Members Other:: , 2 sons, Housing: House Are you a primary healthcare architect to a significant other at home: No Do you presently have visiting nurse or other home services: No Comment: pressure Patient Tobacco Use Status: Former Tobacco user Quit Date: Tobacco use type: Cigarette Years Smoked: 2 e-Cigarette/Vaping Use: Never Used Second Hand Smoke Exposure: No service: No Current occupational status: retired Cognitive needs: No Hearing needs: No Vision needs: Yes Review of Systems Const All systems reviewed & are unremarkable except as noted in HPI and below Physical Exam Const General: no acute distress, alert and awake Orientation/consciousness: patient oriented x3 HEENT Head: Yes normocephalic and Yes atraumatic Eyes EOM: EOMs intact bilaterally Resp Effort & Inspection: normal respiratory effort and able to speak in complete sentences Cardio Jugular venous distension: no JVD Skin General skin exam: turgor normal Rashes: no rashes Neuro General: patient oriented x3 Extrem Other: feet are warm palpable DP on left There is diminished capillary refill in the toes (~3 sec) She has no pain with ROM of the hip and is walking without antalgia Psych Appearance: grossly normal Affect: normal affect Attitude: cooperative Results Reviewed Results Reviewed: RIGHT: Patency of the visualized vasculature of the right lower extremity. Essentially biphasic waveforms throughout the majority of the right lower extremity suggesting hemodynamic alterations in vascular flow. LEFT: Patency of the visualized vasculature of the left lower extremity. Essentially biphasic waveforms throughout the majority of the left lower extremity suggesting hemodynamic alterations in vascular flow. LE US negative for DVT Assessment & Plan Assessment & Plan (1) Osteoarthritis of right hip: Code(s): M16.11 - Unilateral primary osteoarthritis, right hip Qualifiers: Osteoarthritis type: primary Qualified Code(s): M16.11 - Unilateral primary osteoarthritis, right hip Plan: Gabys hip is doing well. She is walking comfortably and has minimal discomfort. An rx was written for outpatient PT which I recommend. (2) Vasculitis: Code(s): I77.6 - Arteritis, unspecified Plan: She does have diminished capillary refill in the toes but this is of unclear etiology. She was given amlodipine for Raynaud's phenomenon in the ED. There are venous and arterial studies that were performed in the ED and suggest hemodynamic changes but are inconclusive. ABIs were not performed. She was referred to vascular. Plan Prepared for Maximino Cook MD by Terell Avalos, medical secretary teacher, on 10/31/23 at 2:01 PM, EST. Orders: Orders XR pelvis 1-2V 10/31/23 M25.559 - Pain in unspecified hip XR hip RT 1V 10/31/23 M25.559 - Pain in unspecified hip PT Evaluation and Treatment 10/31/23 M16.11 - Unilateral primary osteoarthritis, right hip Coding Level of Care Code Global (55581) Diagnoses Primary osteoarthritis of right hip M16.11 Osteoarthritis type: primary Vasculitis I77.6
== END 2023-10-31 14:34 | disposition home or self-care (01) ==
PROVIDERS: PCP Internal Medicine; Visit Provider Orthopaedic Surgery
DX: M16.11 Unilateral primary osteoarthritis, right hip (principal); I77.6 Arteritis, unspecified
CPT/HCPCS: 99024

== ENCOUNTER 2023-11-28 12:30 | Outpatient (REF) | payer MEDICARE, OTHER, SELFPAY ==
--- NOTE | ~2023-11-28 | MM_ITS ---
EXAMINATION: MM SCREENING DIGITAL BREAST TOMOSYNTHESIS, BILATERAL CLINICAL INFORMATION: Screening. Asymptomatic. Right lumpectomy for breast cancer 1994 and second right lumpectomy for ADH, 2000. History lymphoma. Due for yearly. COMPARISON: Mammography: 10/11/2022, 10/02/2021, 09/28/2020, 08/27/2019, 08/22/2018; CTA chest 09/10/2020. TECHNIQUE: Digital breast tomosynthesis is performed in both the craniocaudal and mediolateral oblique views along with computer-aided detection (CAD). Synthesized 2D images are generated from the tomosynthesis. FINDINGS: There are scattered areas of fibroglandular density (ACR BI-RADS breast composition Category b). In the right breast, upper outer quadrant, posterior one third, there is a surgical clip surrounding scarring related to prior lumpectomy and treatment. The overall scarring pattern appears stable. No clear evidence for findings concerning for disease recurrence. There are a few scattered bilateral punctate calcifications, benign. No pleomorphic grouped calcifications identified. There is a biopsy clip in the medial inferior right breast, mid to anterior one third. There is no developing mass, or developing region of architectural distortion in either breast. The parenchymal pattern remains similar with minor asymmetries bilaterally. MM/MM tomosynthesis screening BI IMPRESSION: No mammographic evidence of malignancy. Stable benign findings. ASSESSMENT: BI-RADS BI-RADS 2 - Benign Findings RECOMMENDATION: Routine annual mammography screening. 1 year F/U This examination should not preclude the clinical evaluation of a suspicious palpable abnormality. This patient's information was entered into a reminder system with a target due date for their next mammogram.
== END 2023-11-28 12:31 | disposition home or self-care (01) ==
LOC: HO.MAMMO 12:30
PROVIDERS: PCP Internal Medicine; Visit Provider Internal Medicine
DX: Z12.31 Encounter for screening mammogram for malignant neoplasm of breast (principal)
CPT/HCPCS: 77063; 77067

== ENCOUNTER → 2023-11-28 12:30 | Outpatient (BNV) | payer MEDICARE, OTHER, SELFPAY | PROVIDERS: PCP Internal Medicine; Visit Provider Radiology Diagnostic Radiology | DX: Z12.31 Encounter for screening mammogram for malignant neoplasm of breast (principal) | CPT/HCPCS: 77063; 77067 ==

== ENCOUNTER 2023-12-02 12:33 | Outpatient (AMB) | payer MEDICARE, OTHER, SELFPAY ==
--- NOTE | 2023-12-02 12:36 | A.OFFVIS_ITS ---
Intake Vital Signs 12/02/23 12:37 Height 5 ft 5.5 in Weight 164 lb BMI 26.9 Intake Visit Reasons: OV-RT OUSMANE 09/11/23 NE-follow up Intake Note: Lillian garcia 77 year old female presents today for a post operative right OUSMANE on 09/11/23 NE. diminished capillary refill in the toes but this is of unclear etiology. She was given amlodipine for Raynaud's phenomenon and referred to vascular. Patient reports that she is doing well, she continues to work with physical therapy. She is asking about driving and bending Allergies No Known Allergies Allergy (Verified 10/30/23 17:20) HPI OV-RT OUSMANE 09/11/23 NE-follow up HPI Details Lillian a 77 year old female presents today for a post operative right OUSMANE on 09/11/23 NE. diminished capillary refill in the toes but this is of unclear etiology. She was given amlodipine for Raynaud's phenomenon and referred to vascular. Patient reports that she is doing well, she continues to work with physical therapy. She is asking about driving and bending. [facility] Medical History Osteoarthritis of right hip Personal history of COVID-19 Pain Slow to wake up after anesthesia Achalasia of esophagus Otitis media of right ear Cataract RLS (restless legs syndrome) Insomnia Anxiety Hx of breast cancer Post-nasal drip Multiple myeloma Ankle fracture, left GERD (gastroesophageal reflux disease) Hypertension Surgical History (Updated 12/02/23 @ 12:42 by Alpa Clemons CMA) History of right hip replacement (09/11/23) Hx of bilateral cataract extraction History of lumpectomy of right breast History of History of surgery on left wrist History of colonoscopy H/O left knee surgery Status post ORIF of fracture of ankle (~2020) Family History Other Mental health disorder Social History Household Members: None Household Members Other:: , 2 sons, Housing: House Are you a primary managed care analyst to a significant other at home: No Do you presently have visiting nurse or other home services: No Comment: pressure Patient Tobacco Use Status: Former Tobacco user Quit Date: Tobacco use type: Cigarette Years Smoked: 2 e-Cigarette/Vaping Use: Never Used Second Hand Smoke Exposure: No service: No Current occupational status: retired Cognitive needs: No Hearing needs: No Vision needs: Yes Physical Exam Vital Signs: BMI result Body Mass Index 26.9 Extrem Other: inc c/d/i Mild Trendelenburg gait Contralateral valgus knee with lateral joint line pain Assessment & Plan Assessment & Plan (1) Status post total replacement of right hip: Code(s): Z96.641 - Presence of right artificial hip joint Plan: Overall Lillian continues to do well now 2 months status post right hip replacement. She may resume driving and she is seeing vascular surgery for her? Raynaud's of the feet. I discussed hip precautions and learning how to use a cane as her primary problem seems to continue to be fear of falling. She is also complaining of left knee pain. She has valgus osteoarthritis left knee. She will follow up in 3 months to discuss. Orders: Orders PT Evaluation and Treatment Today Z96.641 - Presence of right artificial hip joint Coding Level of Care Code Est Pt Level 3 (31428) Global (71189) Diagnoses Status post total replacement of right hip Z96.641
[2023-12-02 12:37] VITALS: BMI 26.9
== END 2023-12-02 13:16 | disposition home or self-care (01) ==
PROVIDERS: PCP Internal Medicine; Visit Provider Orthopaedic Surgery
DX: Z47.1 Aftercare following joint replacement surgery (principal); Z96.641 Presence of right artificial hip joint
CPT/HCPCS: 99024

== ENCOUNTER → 2023-12-02 12:33 | Outpatient (BNVA) | payer MEDICARE, OTHER, SELFPAY | PROVIDERS: PCP Internal Medicine; Visit Provider Orthopaedic Surgery | DX: Z47.1 Aftercare following joint replacement surgery (principal); Z96.641 Presence of right artificial hip joint | CPT/HCPCS: 99212 ==

== ENCOUNTER 2023-12-05 14:22 | Outpatient (AMB) | payer MEDICARE, OTHER, SELFPAY ==
--- NOTE | 2023-12-05 14:26 | MHC.OFFVIS ---
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 She states she had hip surgery in September of 2023 and had leg swelling and blue toes after. Was given amlodipine besylate in October 2023 but did not start it because she states her blood pressure is fine Has varicose veins on both legs, redness, swelling but no pain. Has leg pain at night. 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 She reports numbness and tingling. She also has discoloration on the digits. Her biggest concern is pain and discomfort more so on the left ankle. Of note she has a history of kidney disease and multiple myeloma. She is currently on a chemotherapy regimen. She has been followed by [facility]. She had presented to the emergency room and had undergone noninvasive arterial testing. She now presents to us for vascular evaluation. [facility] Medical History Osteoarthritis of right hip Personal history of COVID-19 Pain Slow to wake up after anesthesia Achalasia of esophagus Otitis media of right ear Cataract RLS (restless legs syndrome) Insomnia Anxiety Hx of breast cancer Post-nasal drip Multiple myeloma Ankle fracture, left GERD (gastroesophageal reflux disease) Hypertension Surgical History History of right hip replacement (09/11/23) Hx of bilateral cataract extraction History of lumpectomy of right breast History of History of surgery on left wrist History of colonoscopy H/O left knee surgery Status post ORIF of fracture of ankle (~2020) Family History Other Mental health disorder Social History Household Members: None Household Members Other:: , 2 sons, Housing: House Are you a primary landcare facilitator to a significant other at home: No Do you presently have visiting nurse or other home services: No Comment: pressure Patient Tobacco Use Status: Former Tobacco user Quit Date: Tobacco use type: Cigarette Years Smoked: 2 e-Cigarette/Vaping Use: Never Used Second Hand Smoke Exposure: No service: No Current occupational status: retired Cognitive needs: No Hearing needs: No Vision needs: Yes Review of Systems Const All systems reviewed & are unremarkable except as noted in HPI and below Reports no additional complaints ENT Reports Normal hearing present Card Denies chest pain, Denies chest pain at rest, Denies chest pain with activity and Denies pedal edema Resp Denies cough GI Denies abdominal pain Musc Denies abnormal gait, Denies muscle cramps and Denies radiating pain into limb Skin/Breast Denies skin ulcer and Denies wounds Neuro Reports Normal hearing present and Denies abnormal gait Psych Reports no additional complaints Physical Exam Vital Signs: BMI result Body Mass Index 26.9 Const General: cooperative, healthy appearing and comfortable Orientation/consciousness: oriented to person, oriented to place and oriented to time HEENT Head: Yes normal to inspection Neck Neck: Yes normal visual inspection Carotids: no bruits Chest Chest palpation & inspection: normal inspection of the chest Resp Effort & Inspection: normal respiratory effort and able to speak in complete sentences Auscultation: clear to auscultation bilaterally, no crackles, no rales, no rhonchi and no wheezes Cardio Other: Bilateral palpable dorsalis pedis pulses Rate: regular rate Rhythm: regular rhythm Heart sounds: S1 normal heart sound present and S2 normal heart sound present Bruits: no carotid bruits Peripheral pulses: Peripheral pulses 2+ throughout GI Inspection: Yes normal to inspection Skin Other: Tips of toes discolored, easily blanchable. Motor and sensation intact Wounds: no wounds Hair: normal Neuro General: oriented to person, oriented to place and oriented to time Cranial nerves: Yes CN's II-XII intact bilaterally and Yes Normal hearing present Cognition (Neuro): normal cognition Motor exam (neuro): 5/5 motor strength present throughout Extrem Other: venous exam: No significant superficial varicosities or spider telangiectasias, minimal edema General: No clubbing, No cyanosis and No edema Psych Appearance: grossly normal Mental Status: mental status grossly normal Speech and movement: Normal speech and movement present Results Reviewed Results Reviewed: Noninvasive arterial testing dated 10/30/2023 demonstrates bilateral lower extremities within normal limits. Assessment & Plan Assessment & Plan (1) Varicose veins of left lower extremity with inflammation: Code(s): I83.12 - Varicose veins of left lower extremity with inflammation Plan: Unclear etiology of lower extremity discomfort. It does not appear to be arterial as she does have palpable pulses and normal arterial testing. She does have some lower extremity swelling in addition to left ankle pain. That may be more musculoskeletal in nature. 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 I have taken the liberty of ordering venous insufficiency testing to rule that out. She will follow up with us after testing. Thank you for allowing us to assist in her care. (2) Raynauds disease: Code(s): I73.00 - Raynaud's syndrome without gangrene Qualifiers: Raynaud?s-associated gangrene presence: without gangrene Qualified Code(s): I73.00 - Raynaud's syndrome without gangrene Plan: I do believe she has an element of Raynaud's. I did discuss with her conservative measures including hand and foot protection avoidance of extremes in temperature decrease caffeine intake and decrease in stressors. I did provide her a fair amount of reassurance that this was not a dangerous situation. Will assess her lower extremities for venous disease. Orders: Orders US venous insuf bilat 1 Week I83.12 - Varicose veins of left lower extremity with inflammation Coding Level of Care Code New Pt Level 4 (66481) Diagnoses Varicose veins of left lower extremity with inflammation I83.12 Raynaud's disease without gangrene I73.00 Raynaud?s-associated gangrene presence: without gangrene
[2023-12-05 14:27] VITALS: BMI 26.9
== END 2023-12-05 14:57 | disposition home or self-care (01) ==
LOC: HO.HVS 14:22
PROVIDERS: PCP Internal Medicine; Visit Provider Surgery Vascular Surgery
DX: I83.12 Varicose veins of left lower extremity with inflammation (principal); I73.00 Raynaud's syndrome without gangrene
CPT/HCPCS: 99203

== ENCOUNTER → 2023-12-05 14:22 | Outpatient (BNVA) | payer MEDICARE, OTHER, SELFPAY | PROVIDERS: PCP Internal Medicine; Visit Provider Surgery Vascular Surgery | DX: I83.12 Varicose veins of left lower extremity with inflammation (principal); I73.00 Raynaud's syndrome without gangrene | CPT/HCPCS: 99202 ==

== ENCOUNTER 2023-12-12 12:50 | Outpatient (REF) | payer MEDICARE, OTHER, SELFPAY ==
--- NOTE | ~2023-12-12 | US_ITS ---
EXAMINATION: US LOWER EXTREMITY VENOUS (REFLUX EXAM), BILATERAL CLINICAL INFORMATION: Chronic venous insufficiency with lower extremity edema and pain. History of prior vein stripping COMPARISON: Duplex ultrasound from 10/16/2023 TECHNIQUE: Color flow triplex imaging and compression Doppler was performed to evaluate both the deep and the superficial systems bilaterally. To evaluate the superficial system, the examination was performed in the upright position. Color-flow Doppler ultrasound and compression ultrasound were utilized. In addition, maneuvers were utilized to demonstrate reflux. FINDINGS: 1. DEEP VENOUS ULTRASOUND OF THE RIGHT LOWER EXTREMITY: Common Femoral Vein: Compressible, normal respiratory variation and augmented flow. Femoral Vein: Compressible, normal color flow and augmentation. Popliteal Vein: Compressible, normal augmentation. Deep Reflux: There is no evidence of reflux in the deep system in either the common femoral vein, superficial femoral or the popliteal vein. There is no evidence of a Kyle's cyst. 2. SUPERFICIAL ULTRASOUND WITH DOPPLER OF RIGHT LOWER EXTREMITY: GREAT SAPHENOUS VEIN: Saphenofemoral Junction: 0.4 cm; Reflux: 0 ms Proximal Thigh: Not visualized Mid Thigh: Not visualized Distal Thigh: Not visualized At Knee: Not visualized Proximal Calf: Not visualized Mid Calf: Not visualized Distal Calf: Not visualized DUPLICATED MEDIAL GREAT SAPHENOUS VEIN: Diameter: None imaged Reflux: NA DUPLICATED LATERAL GREAT SAPHENOUS VEIN: Diameter: None imaged Reflux: NA SMALL SAPHENOUS VEIN: Saphenopopliteal Junction: 0.1 cm; Reflux: 0 ms Proximal: 0.1 cm; Reflux: 0 ms Distal: Not visualized VEIN OF GIACOMINI: Size: NA Reflux: NA VARICOSITIES: Location: Medial knee Size: 0.2 cm Reflux: None PERFORATORS: Location: Proximal, mid and distal calf Size: 0.2 cm Reflux: None 3. DEEP VENOUS ULTRASOUND OF THE LEFT LOWER EXTREMITY: Common Femoral Vein: Compressible, normal respiratory variation and augmented flow. Femoral Vein: Compressible, normal color flow and augmentation. Popliteal Vein: Compressible, normal augmentation. Deep Reflux: Mild deep venous reflux in the popliteal vein measuring 888 ms There is no evidence of a Kyle's cyst. 4. SUPERFICIAL ULTRASOUND WITH DOPPLER OF LEFT LOWER EXTREMITY: GREAT SAPHENOUS VEIN: Not visualized throughout the thigh and calf DUPLICATED MEDIAL GREAT SAPHENOUS VEIN: Diameter: None imaged Reflux: NA DUPLICATED LATERAL GREAT SAPHENOUS VEIN: Diameter: None imaged. Reflux: NA SMALL SAPHENOUS VEIN: Saphenopopliteal Junction: 0.2 cm; Reflux: 0 ms Proximal: 0.3 cm; Reflux: 0 ms Distal: 0.2 cm; Reflux: 0 ms VEIN OF GIACOMINI: Size: NA Reflux: NA PERFORATORS: Location: None significant Size: NA Reflux: NA VARICOSITIES: Location: Distal thigh and proximal calf Size: 0.2 cm Reflux: None US/US venous insuf bilat IMPRESSION: Right: Great saphenous vein is not visualized consistent with prior vein stripping. No significant venous insufficiency or large varicose veins. Left: Great saphenous vein is not visualized consistent with prior vein stripping. No significant venous insufficiency or large varicose veins. There is mild deep venous reflux in the left popliteal vein
== END 2023-12-12 12:51 | disposition home or self-care (01) ==
LOC: HO.US 12:50
PROVIDERS: PCP Internal Medicine; Visit Provider Surgery Vascular Surgery
DX: I83.12 Varicose veins of left lower extremity with inflammation (principal)
CPT/HCPCS: 93970

== ENCOUNTER 2023-12-13 14:11 | Outpatient (AMB) | payer MEDICARE, OTHER, SELFPAY ==
[2023-12-13 14:16] VITALS: BP 150/100; PULSE 72; TEMP 36.6; O2SAT 95; BMI 26.7
--- NOTE | 2023-12-13 14:16 | MHC.OFFWIV ---
Intake Vital Signs 12/13/23 14:16 Height 5 ft 5.5 in Weight 163 lb BMI 26.7 BP 150/100 H Blood Pressure Location Lt brachial Position Sitting Pulse 72 Pulse Source Pulse Oximeter Temp 97.9 F Temp Source Temporal Artery Scan Pulse Oximetry (%) 95 Oxygen Delivery Method Room Air Intake Visit Reasons: EP ?Sinus Infection Intake Note: pt is here today for sinus infection started 2 days ago Patient Tobacco Use Status: Former Tobacco user Quit Date: Allergies No Known Allergies Allergy (Verified 12/13/23 14:19) Do you need a note to return to daycare/school/sports/work: No HPI HPI Comments History of Present Illness Details This is a 78-year-old female who presented to the office complaining of viral URI symptoms including nasal/sinus congestion, fatigue, and generalized malaise x4 days. Patient states her symptoms started to improve; however, they significantly worsened today. She denies any measured fevers or chills but states she is feeling very fatigued and run down. She reports a dry cough. She denies any chest pain or shortness a breath. She denies any abdominal pain or nausea/vomiting/diarrhea. [facility] Medical History Osteoarthritis of right hip Personal history of COVID-19 Pain Slow to wake up after anesthesia Achalasia of esophagus Otitis media of right ear Cataract RLS (restless legs syndrome) Insomnia Anxiety Hx of breast cancer Post-nasal drip Multiple myeloma Ankle fracture, left GERD (gastroesophageal reflux disease) Hypertension Surgical History History of right hip replacement (09/11/23) Hx of bilateral cataract extraction History of lumpectomy of right breast History of History of surgery on left wrist History of colonoscopy H/O left knee surgery Status post ORIF of fracture of ankle (~2020) Family History Other Mental health disorder Social History Household Members: None Household Members Other:: , 2 sons, Housing: House Are you a primary career development specialist to a significant other at home: No Do you presently have visiting nurse or other home services: No Comment: pressure Patient Tobacco Use Status: Former Tobacco user Quit Date: Tobacco use type: Cigarette Years Smoked: 2 e-Cigarette/Vaping Use: Never Used Second Hand Smoke Exposure: No service: No Current occupational status: retired Cognitive needs: No Hearing needs: No Vision needs: Yes Review of Systems Const All systems reviewed & are unremarkable except as noted in HPI and below Reports no additional complaints Eyes Reports no additional complaints ENT Reports no additional complaints Card Reports no additional complaints Resp Reports no additional complaints GI Reports no additional complaints Reports no additional complaints Musc Reports no additional complaints Skin/Breast Reports system reviewed and no additional complaints, except as documented Neuro Reports no additional complaints Psych Reports no additional complaints Endo Reports no additional complaints Dom/Lymph Reports no additional complaints Aller/Immun Reports no additional complaints Physical Exam Vital Signs: Last Vital Signs Temp 97.9 F 12/13/23 14:16 Pulse 72 12/13/23 14:16 BP 150/100 H 12/13/23 14:16 Pulse Ox 95 12/13/23 14:16 Oxygen Delivery Method Room Air 12/13/23 14:16 BMI result Body Mass Index 26.7 Const Other: Vital signs reviewed. Constitutional: Non-toxic appearing. No acute distress. Well-developed and well-nourished. HEENT: Normocephalic and atraumatic. Tympanic membranes without erythema, edema, or bulging bilaterally. External auditory canals without erythema or edema bilaterally. Moist mucous membranes. No pharyngeal erythema or exudates. Skin: Warm and dry. No rashes or lesions noted. Neck: Full and painless range of motion. No cervical lymphadenopathy. Cardio: Regular rate and rhythm. No murmurs, gallops, or rubs. No lower extremity edema. No JVD. Pulmonary: No respiratory distress. No accessory muscle usage. Clear to auscultation bilaterally without wheezing, crackles, or rhonchi. Gastrointestinal: Soft, nontender, and nondistended in all 4 quadrants. Musculoskeletal: Normal range of motion in joints throughout the body. No deformity or other signs of injury. Neuro: Alert and oriented x4. Cranial nerves 2-12 grossly intact. No focal deficits appreciated. Psych: Normal mood and affect. Assessment & Plan Assessment & Plan (1) Viral URI with cough: Code(s): J06.9 - Acute upper respiratory infection, unspecified Plan: This is a 78-year-old female who presents to the office complaining of improving but then worsening viral URI symptoms times 4-5 days. History and physical most consistent with acute viral upper respiratory tract infection. Recommended symptomatic management including rest, increased fluids, advil/tylenol for pain/fever, and over the counter throat lozenges/decongestants. Patient was given a prescription for p.o. azithromycin 500mg today followed by 250 mg daily x4 days. Patient advised to follow up here or go to the emergency room for worsening/persistent symptoms. Patient verbalized understanding and is agreeable with the plan. Orders: Orders SARS-CoV2/FLU/RSV Today R09.89 - Other specified symptoms and signs involving the circulatory and respiratory systems Medications: New azithromycin For 250 mg dose pack: take 500 mg today (day 1), then 250 mg for 4 days (days 2-5) PO 6 tabs 0RF Coding Level of Care Code Est Pt Level 3 (43114) Diagnoses Viral URI with cough J06.9
== END 2023-12-13 15:23 | disposition home or self-care (01) ==
PROVIDERS: PCP Internal Medicine; Visit Provider Physician Assistant Medical
DX: J06.9 Acute upper respiratory infection, unspecified (principal)
CPT/HCPCS: 99213

== ENCOUNTER 2024-01-07 15:13 | Outpatient (AMB) | payer MEDICARE, OTHER, SELFPAY ==
--- NOTE | 2024-01-07 15:13 | MHC.OFFVIS ---
Intake Visit Reasons: Follow up [facility] 12/12/2023 Intake Note: Patient presents for follow up [facility] 12/12/23. Patient has swelling on the left leg , primarily in the ankle. Accompanied by: Other Relationship Allergies No Known Allergies Allergy (Verified 01/07/24 15:15) HPI HPI Follow up [facility] 12/12/2023: Details: Very pleasant 78-year-old female presents for follow-up evaluation regarding numbness and tingling of the leg. She reports that it is more of pain that she experiences in the feet. In addition she has ankle pain. She now presents to us for follow-up with venous insufficiency testing. She did have a history of venous stripping in her 20s. [facility] Medical History Osteoarthritis of right hip Personal history of COVID-19 Pain Slow to wake up after anesthesia Achalasia of esophagus Otitis media of right ear Cataract RLS (restless legs syndrome) Insomnia Anxiety Hx of breast cancer Post-nasal drip Multiple myeloma Ankle fracture, left GERD (gastroesophageal reflux disease) Hypertension Surgical History History of right hip replacement (09/11/23) Hx of bilateral cataract extraction History of lumpectomy of right breast History of History of surgery on left wrist History of colonoscopy H/O left knee surgery Status post ORIF of fracture of ankle (~2020) Family History Other Mental health disorder Social History Household Members: None Household Members Other:: , 2 sons, Housing: House Are you a primary client care consultant to a significant other at home: No Do you presently have visiting nurse or other home services: No Comment: pressure Patient Tobacco Use Status: Former Tobacco user Quit Date: s Tobacco use type: Cigarette Years Smoked: 2 e-Cigarette/Vaping Use: Never Used Second Hand Smoke Exposure: No service: No Current occupational status: retired Cognitive needs: No Hearing needs: No Vision needs: Yes Review of Systems Const All systems reviewed & are unremarkable except as noted in HPI and below Reports no additional complaints ENT Reports Normal hearing present Card Denies chest pain, Denies chest pain at rest, Denies chest pain with activity and Denies pedal edema Resp Denies cough GI Denies abdominal pain Musc Denies abnormal gait, Denies muscle cramps and Denies radiating pain into limb Skin/Breast Denies skin ulcer and Denies wounds Neuro Reports Normal hearing present and Denies abnormal gait Psych Reports no additional complaints Physical Exam Const General: cooperative, healthy appearing and comfortable Orientation/consciousness: oriented to person, oriented to place and oriented to time HEENT Head: Yes normal to inspection Neck Neck: Yes normal visual inspection Carotids: no bruits Chest Chest palpation & inspection: normal inspection of the chest Resp Effort & Inspection: normal respiratory effort and able to speak in complete sentences Auscultation: clear to auscultation bilaterally, no crackles, no rales, no rhonchi and no wheezes Cardio Rate: regular rate Rhythm: regular rhythm Heart sounds: S1 normal heart sound present and S2 normal heart sound present Bruits: no carotid bruits Peripheral pulses: Peripheral pulses 2+ throughout GI Inspection: Yes normal to inspection Skin Wounds: no wounds Hair: normal Neuro General: oriented to person, oriented to place and oriented to time Cranial nerves: Yes CN's II-XII intact bilaterally and Yes Normal hearing present Cognition (Neuro): normal cognition Motor exam (neuro): 5/5 motor strength present throughout Extrem Other: venous exam: No significant superficial varicosities or spider telangiectasias, minimal edema General: No clubbing, No cyanosis and No edema Psych Appearance: grossly normal Mental Status: mental status grossly normal Speech and movement: Normal speech and movement present Results Reviewed Results Reviewed: Brief summary of venous insufficiency testing is as follows: right great saphenous vein: negative right small saphenous vein: negative right accessory vein: none present left great saphenous vein: negative left small saphenous vein: negative left accessory vein: none present Please note there is no evidence of any venous aneurysms or significant tortuosity Assessment & Plan Assessment & Plan (1) Varicose veins of left lower extremity with inflammation: Code(s): I83.12 - Varicose veins of left lower extremity with inflammation Category: Medical Plan: In short patient is negative for any significant venous insufficiency. I do believe that this may be more musculoskeletal or neurogenic in nature. This was discussed with the patient. She was advised to follow up with you. In terms the swelling of her legs we discussed routine conservative measures including compression elevation and exercise. She will follow up with us on an as-needed basis. Coding Level of Care Code Est Pt Level 4 (04627) Diagnoses Varicose veins of left lower extremity with inflammation I83.12
== END 2024-01-07 15:35 | disposition home or self-care (01) ==
PROVIDERS: PCP Internal Medicine; Visit Provider Surgery Vascular Surgery
DX: I83.12 Varicose veins of left lower extremity with inflammation (principal)
CPT/HCPCS: 99213

== ENCOUNTER → 2024-01-07 15:13 | Outpatient (BNVA) | payer MEDICARE, OTHER, SELFPAY | PROVIDERS: PCP Internal Medicine; Visit Provider Surgery Vascular Surgery | DX: I83.12 Varicose veins of left lower extremity with inflammation (principal) | CPT/HCPCS: 99212 ==

== ENCOUNTER 2024-01-09 14:00 | Outpatient (RCR) | payer MEDICARE, OTHER, SELFPAY ==
--- NOTE | 2023-11-14 07:43 | MHC.PT.EP ---
[facility] [place] [facility] [place] [facility] [place] [facility] [address] Kelechi Parada [address] [phone] F: [phone] F: [phone] F: [phone] F: [phone] Physical Therapy Plan of Care Date of Evaluation: 11/13/23 Date of Surgery: 09/11/2023 Diagnosis: s/p R OUSMANE 09/11/2023 Assessment: Patient is a 77 year old female presenting to PT s/p R OUSMANE on 09/11/2023. She presents today with impairments in pain, ROM, hip strength, LE strength, muscle tightness, increase tissue density. Pt's current occupation is retired, with baseline physical activities including ambulating, stair negotiation, ADLs. 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 Clinical presentation today is most consistent with signs and sx associated with s/p R OUSMANE 09/11/2023 and pt will benefit from skilled PT 2 week x 5 weeks to address the following problems and impairments noted upon evaluation: pain, ROM, hip strength, LE strength, muscle tightness, increase tissue density. These problems limit the patient with the following functional activities: ambulating, stair negotiation, ADLs. The prescribed treatment plan of care is medically necessary. Co-morbidities of hx breast cancer, HTN, multiple myeloma, osteoporosis were identified and taken into considerations of plan of care. Pt was educated on HEP, role of PT, prognosis, POC. Frequency and Duration: The patient will be seen 2 x week x 5 weeks Short Term Goals: Pt will demonstrate improved hip MMT strength by 1/3 grade in 3 weeks for improved lumbopelvic stability. Pt will demonstrate improved R knee MMT strength by 1/3 grade in 3 weeks. Pt will demonstrate less tightness in anterior R hip flexor group in 3 weeks. Pt will demonstrate ability to perform SLR with min to no pain in 3 weeks. Mcc Goals: Pt will demonstrate improved LEFI score by 9 points in 4 weeks for improved functional mobility. Pt will demonstrate ability to ambulate with improved mechanics and no AD in 5 weeks for improved access to the community. Pt will demonstrate ability to perform STS transfer with min to no pain in 5 weeks for improved ability to transfer. Pt will demonstrate ability to perform step up with min to no pain in 5 weeks for improved tolerance to stairs. Treatment Plan: Modalities to reduce pain, spasms and effusion. Manual therapy to restore motion and function. Therapeutic exercise to improve strength and flexibility. Neuromuscular re-education for posture and balance. Therapeutic activities to return to functional activities of daily living. Electronically signed by: Angeline Elliott, PT, DPT, ATC Please sign and return to therapist. Thank you for your referral.
[2023-12-13 17:06] LABS: Influenza A PCR NEGATIVE (Negative); Influenza B PCR NEGATIVE (Negative); Resp Syncy Virus RNA Qual PCR NEGATIVE (Negative); SARS COV2 PCR INHOUSE NEGATIVE (Negative)
--- NOTE | 2024-01-09 14:57 | MHC.PT.DC ---
[facility] [place] Office [place] Office [place] Office [address] Kelechi Parada [address] [phone] F: [phone] F: [phone] F: [phone] F: [phone] Physical Therapy Discharge Report Diagnosis: s/p R OUSMANE 09/11/2023 Date of Surgery: 09/11/2023 Date of Evaluation: 11/13/23 Date of Discharge: 01/09/24 Treatments to Date: 14 Cancellations to Date: 3 No Shows to Date: 0 Discharge Status: Achieved Goals Improved Function Independent with HEP Discharge Summary: 01/09/2024: Pt has made good progress in terms of the hip since start of care. Unfortunately her gait is still antalgic however this is due to her ongoing knee issues. She also is still limited on the stairs but again this is more so due to the knees vs the hip. At this time max benefits have been provided for skilled PT for the hip and it is no longer indicated to continue. She has been compliant all along with her HEP. She knows to continue with her strengthening exercises to maintain hip strength. In terms the knees I encouraged her to mention this at her next follow up with ortho. Electronically signed by: Angeline Elliott, PT, DPT, ATC Please sign and return to therapist. Thank you for your referral.
== END 2024-01-09 14:57 | disposition home or self-care (01) ==
LOC: HO.PTCHIC 14:00
PROVIDERS: Physician Assistant Medical; PCP Internal Medicine; Visit Provider Physician Assistant
DX: Z96.641 Presence of right artificial hip joint (principal); Z11.52 Encounter for screening for COVID-19
CPT/HCPCS: 0241U; 97110; 97140; 97162; 97530

== ENCOUNTER 2024-01-13 13:20 | Outpatient (REF) | payer MEDICARE, OTHER, SELFPAY ==
[2024-01-13 15:20] LABS: Hematocrit 45.4 % (37.0-47.0); Hemoglobin 15.2 g/dl (12.0-16.0); Mean Corpuscular HGB Conc 33.5 g/dl (31.0-35.0); Mean Corpuscular Hemoglobin 30.7 pg (27.0-33.0); Mean Corpuscular Volume 91.7 fL (80.0-98.0); Mean Platelet Volume 9.9 fL (9.4-12.3); Platelet Count 147 X10*3/uL (160-400); Red Blood Count 4.95 X10*6/uL (4.20-5.50); Red Cell Distribution Width 14.8 % (11.0-16.0); White Blood Count 2.8 X10*3/uL (4.8-10.8)
== END 2024-01-13 13:21 | disposition home or self-care (01) ==
LOC: HO.LAB 13:20
PROVIDERS: PCP Internal Medicine; Visit Provider Nurse Practitioner Family
DX: E61.1 Iron deficiency (principal); K21.9 Gastro-esophageal reflux disease without esophagitis
CPT/HCPCS: 36415; 85027; 99202

== ENCOUNTER 2024-01-13 13:20 | Outpatient (AMB) | payer MEDICARE, OTHER, SELFPAY ==
[2024-01-13 13:25] VITALS: BP 130/79; PULSE 73; BMI 26.0
--- NOTE | 2024-01-13 13:25 | A.OFFVIS_ITS ---
Vital Signs 01/13/24 13:25 Height 5 ft 5.5 in Weight 158 lb 11.725 oz BMI 26.0 BP 130/79 Blood Pressure Location Lt brachial Position Sitting Pulse 73 Intake Visit Reasons: Anemia/ Colon Screening Intake Note: Lillian presents in the office as a colonoscopy screening and anemia. CC: No concerns today - no bleeding - she states she has stool soteners to regulate her bowels and she goes normal. Allergies No Known Allergies Allergy (Verified 01/13/24 13:25) HPI HPI Anemia/ Colon Screening: Details: 78 year old? female with past medical history of iron deficiency anemia, Raynaud's disease, varicose veins of LLE with vasculitis, osteoarthritis of right hip, status post TKR of R hip, osteoarthritis of bilateral knees, trigeminal neuralgia of right side of face, hypertension, insomnia, and anxiety is here today for pre colonoscopy screening.? Patient has been anemic and has been receiving iron infusions. 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 Patient denies any gastrointestinal symptoms in the past or at present.? Patient denies any melena, hematochezia, unintentional weight loss or ribbon like stools. Patient believes that she had colonoscopy in 2021 and upper endoscopy in 2019 as well with achalasia repair at that time. It was done at [facility]. Patient denies dyspepsia, dysphagia or odynophagia. Denies any personal or family history of gastrointestinal disease, or CRC.? Denies history of difficulty with sedation or anesthesia in the past.? Negative for history of sleep apnea.? Denies any history of cardiac, renal, pulmonary, or hepatic disease.?? No history of infectious? diseases like hepatitis A, B, C, HIV or tuberculosis.? Patient is not on any anticoagulation therapy. [facility] Medical History Osteoarthritis of right hip Personal history of COVID-19 Pain Slow to wake up after anesthesia Achalasia of esophagus Otitis media of right ear Cataract RLS (restless legs syndrome) Insomnia Anxiety Hx of breast cancer Post-nasal drip Multiple myeloma Ankle fracture, left GERD (gastroesophageal reflux disease) Hypertension Surgical History (Updated 01/13/24 @ 13:31 by Farhana Fede, RMA) History of esophagogastroduodenoscopy (EGD) History of right hip replacement (09/11/23) Hx of bilateral cataract extraction History of lumpectomy of right breast History of History of surgery on left wrist History of colonoscopy H/O left knee surgery Status post ORIF of fracture of ankle (~2020) Family History Other Mental health disorder Social History Household Members: None Household Members Other:: , 2 sons, Housing: House Are you a primary care manager to a significant other at home: No Do you presently have visiting nurse or other home services: No Comment: pressure Patient Tobacco Use Status: Former Tobacco user Quit Date: Tobacco use type: Cigarette Years Smoked: 2 e-Cigarette/Vaping Use: Never Used Second Hand Smoke Exposure: No service: No Current occupational status: retired Cognitive needs: No Hearing needs: No Vision needs: Yes Review of Systems Const Denies weight gain and Denies weight loss ENT Reports no additional complaints, Denies dysphagia and Denies odynophagia Card Reports no additional complaints Resp Reports no additional complaints GI Denies abdominal pain, Denies belching, Denies melena, Denies bloating, Denies change in bowel habits, Denies dysphagia, Denies excessive flatus, Denies dyspepsia, Denies heartburn, Denies diarrhea, Denies loose stools, Denies nausea, Denies odynophagia and Denies vomiting Musc Reports no additional complaints Neuro Reports no additional complaints Psych Reports no additional complaints Endo Reports no additional complaints Physical Exam Vital Signs: Last Vital Signs Pulse 73 01/13/24 13:25 BP 130/79 01/13/24 13:25 BMI result Body Mass Index 26.0 Const General: healthy appearing, no acute distress and well developed Nutritional Appearance: well nourished Orientation/consciousness: patient oriented x3 Resp Effort & Inspection: normal respiratory effort, able to speak in complete sentences, no tracheal deviation and symmetric chest movement Auscultation: clear to auscultation bilaterally Cardio Rate: regular rate GI Inspection: Yes normal to inspection and No distended Palpation (GI): Soft to palpation, not firm, nontender and No hepatosplenomegaly present Auscultation: normal bowel sounds General: Yes no CVA tenderness Back/Spine/Pelvis Back: no CVA tenderness Skin General skin exam: elasticity normal, turgor normal and dry skin Neuro General: patient oriented x3 Psych Appearance: grossly normal Mental Status: mental status grossly normal Assessment & Plan Assessment & Plan (1) Iron deficiency: Code(s): E61.1 - Iron deficiency Category: Medical (2) Anemia: Code(s): D64.9 - Anemia, unspecified Qualifiers: Anemia type: iron deficiency Iron deficiency anemia type: other iron deficiency Qualified Code(s): D50.8 - Other iron deficiency anemias (3) GERD (gastroesophageal reflux disease): Code(s): K21.9 - Gastro-esophageal reflux disease without esophagitis Qualifiers: Esophagitis presence: esophagitis presence not specified Qualified Code(s): K21.9 - Gastro-esophageal reflux disease without esophagitis Plan Patient denies any GI, cardiac or respiratory symptoms.? Denies any issues with anesthesia in the past.? Denies any history of sleep apnea.? No history infectious diseases in the past or present.? Not on any anticoagulation therapy.? No family or personal history of colon cancer. Last colonoscopy in 2021. Patient also had upper endoscopy done as well. History of achalasia repair in 2019.? Patient denies melena, hematochezia, unintentional weight loss or ribbon like stools.? Anemia, iron infusions, last 1 was couple weeks ago. If proven in her H&H, however no source of blood loss found. Spray Applicator sending patient to us for colonoscopy and upper endoscopy. Patient does reports that her acid reflux symptoms are suppressed with pantoprazole well, however she will start taking it in the morning half an hour before breakfast to keep her symptoms at bay after eating. Discussed at length the pre-procedure,? prep, diet & medications as well as what to expect prior, during and after the procedure.?? Stressed the importance of good bowel prep. ?Recommended the use of Vaseline or Calmoseptine OTC & baby wipes with bowel movements to promote comfort.? ?Patient verbalizes understanding and agrees to plan of care.? She was given the opportunity to ask questions and all questions answered.? We will see her after the procedure.? Orders: Orders Complete Blood Count no Diff Today K21.9 - Gastro-esophageal reflux disease without esophagitis Medications: New bisacodyl (Dulcolax (bisacodyl)) take 4 tabs at noon the day before your colonoscopy 20 mg (4 x 5 mg) PO ONCE 4 tabs 0RF 1 day Z12.11 - Encounter for screening for malignant neoplasm of colon polyethylene glycol 3350 (Miralax) As directed by gastroenterology department at [facility] 238 grams PO ONCE 238 grams 0RF Z12.11 - Encounter for screening for malignant neoplasm of colon Changed From pantoprazole 40 mg PO BEDTIME To pantoprazole 40 mg PO DAILY 30 tabs 0RF Coding Level of Care Code New Pt Level 4 (80195) Diagnoses Iron deficiency E61.1 Other iron deficiency anemia D50.8 Anemia type: iron deficiency Iron deficiency anemia type: other iron deficiency Gastroesophageal reflux disease, unspecified whether esophagitis present K21.9 Esophagitis presence: esophagitis presence not specified Time Spent (min) 45 Comment 30 minutes spent with patient and additional 15 minutes spent reviewing her r ecords
== END 2024-01-13 14:42 | disposition home or self-care (01) ==
PROVIDERS: PCP Internal Medicine; Visit Provider Nurse Practitioner Family
DX: D50.8 Other iron deficiency anemias (principal); K21.9 Gastro-esophageal reflux disease without esophagitis; Z12.11 Encounter for screening for malignant neoplasm of colon
CPT/HCPCS: 99204

== ENCOUNTER 2024-01-22 08:13 | Outpatient (AMB) | payer MEDICARE, OTHER, SELFPAY ==
[2024-01-22 08:27] VITALS: BP 104/66; PULSE 67; O2SAT 98; BMI 27.7
--- NOTE | 2024-01-22 08:27 | A.OFFPC_ITS ---
Vital Signs 01/22/24 08:27 Height 5 ft 5.5 in Weight 169 lb BMI 27.7 BP 104/66 Blood Pressure Location Lt brachial Position Sitting Pulse 67 Pulse Source Pulse Oximeter Pulse Oximetry (%) 98 Oxygen Delivery Method Room Air Intake Visit Reasons: PE Intake Note: Pt is here today for PE. Allergies No Known Allergies Allergy (Verified 01/22/24 08:28) Medication List - Last Reconciled 01/22/24 by Chen Pop MD acetaminophen 650 mg (2 x 325 mg) PO Q6H PRN 30 days acyclovir 400 mg PO BID bisacodyl (Dulcolax (bisacodyl)) 20 mg (4 x 5 mg) PO ONCE 1 day calcium acetate calcium 1200 mg vitamin d3 1000 units cane As directed docusate sodium (Stool Softener) 250 mg PO BID dorzolamide-timolol 22.3-6.8 mg/mL ophthalmic (eye) duloxetine 60 mg PO DAILY fluticasone propionate 50 mcg/actuation (Allergy Relief (fluticasone)) 1 spray intranasal DAILY gabapentin 600 mg (2 x 300 mg) PO BID 90 days ixazomib (Ninlaro) mg PO lisinopril 2.5 mg PO DAILY montelukast (Singulair) 10 mg PO BEDTIME pantoprazole 40 mg PO DAILY polyethylene glycol 3350 (Miralax) 238 grams PO ONCE [Powerlift reclinder slim width and depth ] [probiotics 100mg orally; ] prochlorperazine maleate 10 mg PO DAILY PRN [Raised toilet seat duration: lifetime] ropinirole 4 mg (2 x 2 mg) PO BEDTIME [SHOWER CHAIR As directed] trazodone 1-2 tabl orally bedtime; walker Folding Front wheeled walker Tobacco use date assessed: 01/22/24 Fall risk assessment: No Falls in past year Last assessed Fall Risk: 01/22/24 Dental Screening Dental Screen Date: 01/22/24 Did you have a dental visit in the last 12 months?: Yes Did you have a dental problem in the last 6 months where you did not have access to dental care?: No Was dental information given to patient?: Patient has dentist HPI PE HPI Details Pt presents for PE. PFSH Medical History Osteoarthritis of right hip Personal history of COVID-19 Pain Slow to wake up after anesthesia Achalasia of esophagus Otitis media of right ear Cataract RLS (restless legs syndrome) Insomnia Anxiety Hx of breast cancer Post-nasal drip Multiple myeloma Ankle fracture, left GERD (gastroesophageal reflux disease) Hypertension Surgical History History of esophagogastroduodenoscopy (EGD) History of right hip replacement (09/11/23) Hx of bilateral cataract extraction History of lumpectomy of right breast History of History of surgery on left wrist History of colonoscopy H/O left knee surgery Status post ORIF of fracture of ankle (~2020) Family History Father Lung cancer Mother Diabetes Hypertension Heart attack Other Mental health disorder Social History Household Members: None Household Members Other:: , 2 sons, Housing: House Are you a primary medical care administrator to a significant other at home: No Do you presently have visiting nurse or other home services: No Comment: pressure Patient Tobacco Use Status: Former Tobacco user Quit Date: Tobacco use type: Cigarette Years Smoked: 2 e-Cigarette/Vaping Use: Never Used Second Hand Smoke Exposure: No service: No Current occupational status: retired Cognitive needs: No Hearing needs: No Vision needs: Yes Questionnaire PHQ-9 Over the last 2 weeks, how often have you been bothered by any of the following problems? 1. Little interest or pleasure in doing things: not at all 2. Feeling down, depressed, or hopeless: several days 3. Trouble falling or staying asleep, or sleeping too much: several days 4. Feeling tired or having little energy: not at all 5. Poor appetite or overeating: not at all 6. Feeling bad about yourself - or that you are a failure or have let yourself or your family down: not at all 7. Trouble concentrating on things, such as reading the newspaper or watching television: not at all 8. Moving or speaking so slowly that other people could have noticed. Or the opposite - being so fidgety or restless that you have been moving around a lot more than usual: not at all 9. Thoughts that you would be better off or of hurting yourself in some way: not at all Total score: 2 Depression Screening Interpretation: Negative Depression Screening Done: Yes Source: Developed by Drs. Talha Steve, Halina Pena, Levar Earl and colleagues, with an educational ramón from [employer]. Thrive Questionnaire Date Thrive assessed: 09/12/23 ROCK-7 AMB Questionnaire ROCK-7 Date ROCK - 7 assessed: 01/22/24 Feeling nervous, anxious, or on edge: 3 = Nearly every day Not being able to stop or control worryin = Nearly every day Worrying too much about different things: 3 = Nearly every day Trouble relaxin = More than half the days Being so restless that it is hard to sit still: 1 = Several days Becoming easily annoyed or irritable: 1 = Several days Feeling afraid as if something awful might happen: 1 = Several days Total ROCK-7 score (0-4 normal; 5-9 mild; 10-14 moderate; 15-21 severe): 14 Source: Developed by Drs. Talha Steve, Halina Pena, Levar Earl and colleagues, with an educational ramón from [employer]. ROCK-7 Assessment Billing ROCK-7 Assessment Tool: ROCK-7 Assessment 76958 Review of Systems Const All systems reviewed & are unremarkable except as noted in HPI and below Reports no additional complaints Eyes Reports no additional complaints ENT Reports no additional complaints Card Reports no additional complaints Resp Reports no additional complaints GI Reports no additional complaints Reports no additional complaints Physical exam (Primary Care) Vital Signs: Last Vital Signs Pulse 67 01/22/24 08:27 BP 104/66 01/22/24 08:27 Pulse Ox 98 01/22/24 08:27 Oxygen Delivery Method Room Air 01/22/24 08:27 BMI result Body Mass Index 27.7 Tobacco/Smoking Status: Tobacco use Status Tobacco use date assessed 01/22/24 01/22/24 08:29 Patient Tobacco Use Status Former Tobacco user 01/22/24 08:29 Tobacco use type Cigarette 01/22/24 08:29 e-Cigarette/Vaping Use Never Used 01/22/24 08:29 PHQ-9: PHQ-9 Score PHQ-9: Total score 2 01/22/24 09:14 Depression Screening Interpretation: Negative Thrive Assessment: Date of Thrive Assessment Date Thrive assessed 09/12/23 01/22/24 08:29 Const General: no acute distress HENMT Head: Yes normal to inspection Ears: hearing grossly normal bilaterally General nose exam: Normal external nose present Face and sinus: Yes normal facial exam Mouth: Normal oral and palatal mucosa present Throat: Yes posterior oropharynx normal Eyes General: appearance normal, both eyes and all related structures Neck Neck: Yes no lymphadenopathy and Yes supple Resp Effort & Inspection: normal respiratory effort Auscultation: clear to auscultation bilaterally Cardio Rhythm: regular rhythm Heart sounds: S1 normal heart sound present and S2 normal heart sound present GI Inspection: Yes normal to inspection Palpation (GI): Soft to palpation Percussion: Yes normal to percussion Auscultation: normal bowel sounds Assessment and Plan Assessment & Plan (1) Iron deficiency: Comment: getting Iron infusion at [facility] Code(s): E61.1 - Iron deficiency Plan: pt will have colonoscopy/EGD for Iron def anemia, pt will do FIT test (2) Neuropathy: Comment: LLE after surgery for venous insufficiency Code(s): G62.9 - Polyneuropathy, unspecified Plan: Patient will increase gabapentin from 600 mg at night to 900 mg QHS, and requested a referral to Neurology (3) Balance disorder: Code(s): R26.89 - Other abnormalities of gait and mobility Plan: Referred to physical therapy (4) Multiple myeloma: Comment: [facility], dxd 2020, in remission 01/28 on Ninlaro and Prolia q 3 months Code(s): C90.00 - Multiple myeloma not having achieved remission Plan: Follow-up with [facility] (5) Annual physical exam: Code(s): Z00.00 - Encounter for general adult medical examination without abnormal findings Plan: Well-balanced diet regular physical activity discussed with the patient. Orders: Orders AMB Fecal Immunochemical Test Today Z12.11 - Encounter for screening for malignant neoplasm of colon, Z12.12 - Encounter for screening for malignant neoplasm of rectum Comprehensive [place]. Panel Fast Today E55.9 - Vitamin D deficiency, unspecified, E61.1 - Iron deficiency, G62.9 - Polyneuropathy, unspecified Vitamin D 25-OH Total Today E55.9 - Vitamin D deficiency, unspecified, E61.1 - Iron deficiency, G62.9 - Polyneuropathy, unspecified TSH reflex Free T4 Today R26.89 - Other abnormalities of gait and mobility PT Evaluation and Treatment Today R26.89 - Other abnormalities of gait and mobility Lipid Panel Today E55.9 - Vitamin D deficiency, unspecified, E61.1 - Iron deficiency, G62.9 - Polyneuropathy, unspecified Vitamin B12 and Folate Today G62.9 - Polyneuropathy, unspecified, R26.89 - Other abnormalities of gait and mobility Referrals Neurology Referral G62.9 - Polyneuropathy, unspecified Coding Level of Care Code Est Pt Prev Care >65y(83827) Diagnoses Iron deficiency E61.1 Neuropathy G62.9 Balance disorder R26.89 Multiple myeloma C90.00 Annual physical exam Z00.00 Additional Codes ROCK-7 Assessment Billing - ROCK-7 Assessment Tool: ROCK-7 Assessment [id number] ([id number])
== END 2024-01-22 09:37 | disposition home or self-care (01) ==
PROVIDERS: PCP Internal Medicine; Visit Provider Internal Medicine
DX: Z00.00 Encounter for general adult medical examination without abnormal findings (principal); E61.1 Iron deficiency; G62.9 Polyneuropathy, unspecified; C90.00 Multiple myeloma not having achieved remission; R26.89 Other abnormalities of gait and mobility
CPT/HCPCS: 99397

== ENCOUNTER 2024-01-22 09:51 | Outpatient (REF) | payer MEDICARE, OTHER, SELFPAY ==
[2024-01-22 13:59] LABS: Alanine Aminotransferase 14 U/L (0-31); Albumin Level 3.9 g/dL (3.5-5.0); Alkaline Phosphatase 57 U/L (39-117); Anion Gap 12 (12-20); Aspartate Amino Transferase 19 U/L (5-31); Bilirubin Total 0.4 mg/dL (0.0-1.0); Blood Urea Nitrogen 21 mg/dL (9-16); Calcium 9.4 mg/dL (8.4-10.2); Carbon Dioxide 30 mmol/L (22-29); Chloride 104 mmol/L (96-108); Cholesterol 272 mg/dL (<200); Estimated Glomerular Filt Rate 38; Glucose Fasting 101 mg/dL (60-99); HDL Cholesterol 85 mg/dL (>40); LDL Cholesterol Calculated 173 mg/dL (<100); Potassium 4.1 mmol/L (3.3-5.1); Sodium 142 mmol/L (135-145); TSH reflex Free T4 1.23 uIU/mL (0.32-4.0); Total Protein 6.8 g/dL (6.5-8.0); Triglycerides 72 mg/dL (<150); Vitamin D 25-OH Total 38.7 ng/mL (>30)
[2024-01-22 14:09] LABS: Folate 12.5 ng/mL (> or = 4.0); Vitamin B12 589 pg/mL (200-900)
== END 2024-01-22 09:52 | disposition home or self-care (01) ==
LOC: HO.HMGCLDS 09:51
PROVIDERS: PCP Internal Medicine; Visit Provider Internal Medicine
DX: E61.1 Iron deficiency (principal); G62.9 Polyneuropathy, unspecified; E55.9 Vitamin D deficiency, unspecified; R26.89 Other abnormalities of gait and mobility; E66.1 Drug-induced obesity
CPT/HCPCS: 36415; 80053; 80061; 82306; 82607; 82746; 84443

== ENCOUNTER 2024-02-04 10:29 | Outpatient (REF) | payer MEDICARE, OTHER, SELFPAY ==
[2024-02-05 11:19] LABS: Influenza A PCR NEGATIVE (Negative); Influenza B PCR NEGATIVE (Negative); Resp Syncy Virus RNA Qual PCR NEGATIVE (Negative); SARS COV2 PCR INHOUSE NEGATIVE (Negative)
== END 2024-02-04 10:30 | disposition home or self-care (01) ==
LOC: HO.LNP 10:29
PROVIDERS: Visit Provider Nurse Practitioner Primary Care
DX: J06.9 Acute upper respiratory infection, unspecified (principal)
CPT/HCPCS: 0241U

== ENCOUNTER 2024-02-04 15:30 | Outpatient (AMB) | payer MEDICARE, OTHER, SELFPAY ==
[2024-02-04 16:04] VITALS: BP 102/64; PULSE 78; TEMP 37; O2SAT 97
--- NOTE | 2024-02-04 16:04 | AM.OFFWIN_ITS ---
Intake Vital Signs 02/04/24 16:04 Height 5 ft 5.5 in BP 102/64 Blood Pressure Location Rt brachial Position Sitting Pulse 78 Pulse Source Pulse Oximeter Temp 98.6 F Temp Source Oral Pulse Oximetry (%) 97 Oxygen Delivery Method Room Air Intake Visit Reasons: EP LT ear pain Intake Note: pt is here left ear pain Patient Tobacco Use Status: Former Tobacco user Quit Date: Allergies No Known Allergies Allergy (Verified 02/04/24 16:42) Medication List - Last Reconciled 02/04/24 by SOFI Platt acetaminophen 650 mg (2 x 325 mg) PO Q6H PRN 30 days acyclovir 400 mg PO BID amoxicillin-pot clavulanate 875-125 mg 1 tab PO Q12H bisacodyl (Dulcolax (bisacodyl)) 20 mg (4 x 5 mg) PO ONCE 1 day calcium acetate calcium 1200 mg vitamin d3 1000 units cane As directed docusate sodium (Stool Softener) 250 mg PO BID dorzolamide-timolol 22.3-6.8 mg/mL ophthalmic (eye) duloxetine 60 mg PO DAILY fluticasone propionate 50 mcg/actuation (Allergy Relief (fluticasone)) 1 spray intranasal DAILY gabapentin 600 mg (2 x 300 mg) PO BID 90 days ixazomib (Ninlaro) mg PO lisinopril 2.5 mg PO DAILY montelukast (Singulair) 10 mg PO BEDTIME pantoprazole 40 mg PO DAILY polyethylene glycol 3350 (Miralax) 238 grams PO ONCE [Powerlift reclinder slim width and depth ] prednisone 20 mg PO BID [probiotics 100mg orally; ] prochlorperazine maleate 10 mg PO DAILY PRN [Raised toilet seat duration: lifetime] ropinirole 4 mg (2 x 2 mg) PO BEDTIME [SHOWER CHAIR As directed] trazodone 1-2 tabl orally bedtime; walker Folding Front wheeled walker Do you need a note to return to daycare/school/sports/work: No HPI HPI Comments History of Present Illness Details Patient is a 78-year-old female in today for sick visit. Patient reports symptoms. Scratchy throat, bilateral ear pain, cough, chills, x5 days. Patient denies chest pain, shortness a breath, dizziness, nausea, vomiting, diarrhea. [facility] Medical History Osteoarthritis of right hip Personal history of COVID-19 Pain Slow to wake up after anesthesia Achalasia of esophagus Otitis media of right ear Cataract RLS (restless legs syndrome) Insomnia Anxiety Hx of breast cancer Post-nasal drip Multiple myeloma Ankle fracture, left GERD (gastroesophageal reflux disease) Hypertension Surgical History History of esophagogastroduodenoscopy (EGD) History of right hip replacement (09/11/23) Hx of bilateral cataract extraction History of lumpectomy of right breast History of History of surgery on left wrist History of colonoscopy H/O left knee surgery Status post ORIF of fracture of ankle (~2020) Family History Father Lung cancer Mother Diabetes Hypertension Heart attack Other Mental health disorder Social History Household Members: None Household Members Other:: , 2 sons, Housing: House Are you a primary manager intensive care unit to a significant other at home: No Do you presently have visiting nurse or other home services: No Comment: pressure Patient Tobacco Use Status: Former Tobacco user Quit Date: Tobacco use type: Cigarette Years Smoked: 2 e-Cigarette/Vaping Use: Never Used Second Hand Smoke Exposure: No service: No Current occupational status: retired Cognitive needs: No Hearing needs: No Vision needs: Yes Review of Systems Const All systems reviewed & are unremarkable except as noted in HPI and below Reports chills, Denies fever(s) and Denies weakness Eyes Denies blurry vision and Denies diplopia ENT Reports otalgia, Reports nasal discharge and Reports post nasal drip Card Denies chest pain and Denies dyspnea Resp Reports cough and Denies dyspnea GI Denies diarrhea, Denies nausea and Denies vomiting Musc Denies tingling Neuro Denies tingling, Denies paresthesias and Denies weakness Physical Exam Vital Signs: Last Vital Signs Temp 98.6 F 02/04/24 16:04 Pulse 78 02/04/24 16:04 BP 102/64 02/04/24 16:04 Pulse Ox 97 02/04/24 16:04 Oxygen Delivery Method Room Air 02/04/24 16:04 Const Other: Appearance: Alert.? Oriented X3.? No acute distress.? Head: Normocephalic, atraumatic. Eyes: Sclera white. ENT: Pharynx normal. TM intact, bilateral erythema and effusion. Neck: Normal inspection.? Neck supple. Full ROM. ? CVS: Normal heart rate and rhythm.? Pulses normal.? Respiratory: No respiratory distress.? Breath sounds normal.? Neuro: Oriented X 3.? Office Procedures Cerumen Removal From which ear canal was the cerumen removed: bilateral Removal: irrigation Notes: patient tolerated procedure well [id number] Irrigation/Lavage Assessment & Plan Assessment & Plan (1) Otitis media of both ears: Comment: Will give patient Augmentin and prednisone. Patient has been educated the side effects of these medications. Code(s): H66.93 - Otitis media, unspecified, bilateral Qualifiers: Otitis media type: unspecified Qualified Code(s): H66.93 - Otitis media, unspecified, bilateral Plan: Take your medications as prescribed. If you were prescribed antibiotics today, it is important that you take your medication to their entirety, do not skip any doses, do not finish them early. Follow-up with your primary care provider this week. Return to the emergency department with new or worsening symptoms. Such as fevers, chills, chest pain, shortness of breath, nausea, vomiting, dizziness, headache, vision changes, lethargy In case of emergency call 911 Plan Follow-up with PCP. Orders: Orders SARS-CoV2/FLU/RSV Today J06.9 - Acute upper respiratory infection, unspecified AMB Cerumen Removal Today H61.22 - Impacted cerumen, left ear Medications: New prednisone 20 mg PO BID 10 tabs 0RF amoxicillin-pot clavulanate 875-125 mg 1 tab PO Q12H 14 tabs 0RF Discontinued amoxicillin take 4 capsules 1 hr prior to dental procedure Discontinued Reason: Doctor's Order 2,000 mg (4 x 500 mg) PO ONCE 4 tabs 3RF 1 day Coding Level of Care Code Est Pt Level 3 (34521) Diagnoses Bilateral otitis media, unspecified otitis media type H66.93 Otitis media type: unspecified CPT Codes Office Procedure - CPT: 61534-Dhj Irrigation/Lavage ([id number]) Time Spent (min) 22
== END 2024-02-04 16:52 | disposition home or self-care (01) ==
PROVIDERS: PCP Internal Medicine; Visit Provider Nurse Practitioner Primary Care
DX: H66.93 Otitis media, unspecified, bilateral (principal)
CPT/HCPCS: 69209; 99213

== ENCOUNTER 2024-04-03 11:06 | Outpatient (REF) | payer MEDICARE, OTHER, SELFPAY ==
--- NOTE | ~2024-04-03 | XR_ITS ---
EXAMINATION: XR BILATERAL KNEES CLINICAL INFORMATION: Reason for Exam M25.562 - Pain in left knee COMPARISON: Knee radiographs 03/14/2012 TECHNIQUE: 1 view of the bilateral knees and 2 views of each knee FINDINGS: RIGHT KNEE: No acute fracture or dislocation. Moderate osteoarthritis worse involving the medial compartment. No joint effusion. Soft tissues are unremarkable. LEFT KNEE: No acute fracture or dislocation. Moderate osteoarthritis worst involving the medial and patellofemoral compartments progressed from prior. No joint effusion. Soft tissues are unremarkable. XR/XR knee RT 3V IMPRESSION: * No acute osseous abnormality. * Moderate osteoarthritis of the knees.
--- NOTE | ~2024-04-03 | XR_ITS ---
EXAMINATION: XR BILATERAL KNEES CLINICAL INFORMATION: Reason for Exam M25.562 - Pain in left knee COMPARISON: Knee radiographs 03/14/2012 TECHNIQUE: 1 view of the bilateral knees and 2 views of each knee FINDINGS: RIGHT KNEE: No acute fracture or dislocation. Moderate osteoarthritis worse involving the medial compartment. No joint effusion. Soft tissues are unremarkable. LEFT KNEE: No acute fracture or dislocation. Moderate osteoarthritis worst involving the medial and patellofemoral compartments progressed from prior. No joint effusion. Soft tissues are unremarkable. XR/XR knee LT 3V IMPRESSION: * No acute osseous abnormality. * Moderate osteoarthritis of the knees.
== END 2024-04-03 11:07 | disposition home or self-care (01) ==
LOC: HO.HOSX 11:06
PROVIDERS: PCP Internal Medicine; Visit Provider Orthopaedic Surgery
DX: M17.0 Bilateral primary osteoarthritis of knee (principal)
CPT/HCPCS: 73562; 99212

== ENCOUNTER 2024-04-03 11:06 | Outpatient (AMB) | payer MEDICARE, OTHER, SELFPAY ==
--- NOTE | 2024-04-03 11:20 | MHC.OFFVIS ---
Intake Visit Reasons: OV-RT OUSMANE 09/11/23 NE-follow up Intake Note: Lillian is a 78 year old female who presents today for a follow up s/p Right OUSMANE 09/11/23 NE. Patient expresses she believes her right leg is taller than the other so now she woddles when she walks and she occasionally she has pain with ambulation of stairs. She is having bilateral knee pains that has been going on for a few years, left worse than right. When she walks or stands to walk her knee gives out on her which causes her pain. She states she tolerates it without medication. She is requesting x-rays for her left knee. Allergies No Known Allergies Allergy (Verified 04/03/24 11:26) HPI HPI OV-RT OUSMANE 09/11/23 NE-follow up: Details: Lillian is a 78 year old female who presents today for a follow up s/p Right OUSMANE 09/11/23 NE. Patient expresses she believes her right leg is taller than the other so now she woddles when she walks and she occasionally she has pain with ambulation of stairs. She is having bilateral knee pains that has been going on for a few years, left worse than right. When she walks or stands to walk her knee gives out on her which causes her pain. She states she tolerates it without medication. She is requesting x-rays for her left knee. [facility] Medical History Osteoarthritis of right hip Personal history of COVID-19 Pain Slow to wake up after anesthesia Achalasia of esophagus Otitis media of right ear Cataract RLS (restless legs syndrome) Insomnia Anxiety Hx of breast cancer Post-nasal drip Multiple myeloma Ankle fracture, left GERD (gastroesophageal reflux disease) Hypertension Surgical History History of esophagogastroduodenoscopy (EGD) History of right hip replacement (09/11/23) Hx of bilateral cataract extraction History of lumpectomy of right breast History of History of surgery on left wrist History of colonoscopy H/O left knee surgery Status post ORIF of fracture of ankle (~2020) Family History Father Lung cancer Mother Diabetes Hypertension Heart attack Other Mental health disorder Social History Household Members: None Household Members Other:: , 2 sons, Housing: House Are you a primary personal carer to a significant other at home: No Do you presently have visiting nurse or other home services: No Comment: pressure Patient Tobacco Use Status: Former Tobacco user Tobacco use type: Cigarette Years Smoked: 2 e-Cigarette/Vaping Use: Never Used Second Hand Smoke Exposure: No service: No Current occupational status: retired Cognitive needs: No Hearing needs: No Vision needs: Yes Physical Exam Extrem Other: Mild right valgus malalignment and moderate left valgus deformity. There is tenderness to palpation lateral compartment bilaterally She walks with a significant gait antalgia especially on the left She has no pain with right hip range of motion Results Reviewed Results Reviewed: I personally reviewed relevant radiographs. Right OUSMANE in expected post operative position with no hardware complications or evidence of loosening Bilateral knee OA with severe lateral compartment osteoarthritis consistent with valgus pattern bilateral knee arthritis Assessment & Plan Assessment & Plan (1) Osteoarthritis of left knee: Code(s): M17.12 - Unilateral primary osteoarthritis, left knee Category: Medical Plan: Lillian has severe left knee osteoarthritis. She can not walk comfortably and is limited and does not want to be. She feels otherwise healthy. I recommend that we pursue a left knee replacement. She will think about it and let me know. If we do do this she would like to do it in September. I would like to see her back in approximately 2 months to discuss or she can call if she would prefer. (2) Osteoarthritis of right knee: Code(s): M17.11 - Unilateral primary osteoarthritis, right knee Category: Medical Plan: Less painful than the left. Orders: Orders XR knee LT 3V Today M25.562 - Pain in left knee XR knee RT 3V Today M25.561 - Pain in right knee Coding Level of Care Code Est Pt Level 4 (40790) Diagnoses Osteoarthritis of left knee M17.12 Osteoarthritis of right knee M17.11
== END 2024-04-03 12:03 | disposition home or self-care (01) ==
PROVIDERS: PCP Internal Medicine; Visit Provider Orthopaedic Surgery
DX: M17.0 Bilateral primary osteoarthritis of knee (principal)
CPT/HCPCS: 99214

== ENCOUNTER 2024-05-13 14:20 | Outpatient (REF) | payer MEDICARE, OTHER, SELFPAY ==
[2024-05-13 14:51] LABS: FIT1 NEGATIVE (NEGATIVE)
[2024-05-13 14:52] LABS: FIT Int Ctl YES; FIT2 NEGATIVE (NEGATIVE)
[2024-05-13 14:53] LABS: FIT Lot M402476
== END 2024-05-13 14:21 | disposition home or self-care (01) ==
LOC: HO.LNP 14:20
PROVIDERS: Visit Provider Internal Medicine
DX: Z13.89 Encounter for screening for other disorder (principal)
CPT/HCPCS: 82274

== ENCOUNTER 2024-05-26 08:37 | Day surgery (SDC) | payer MEDICARE, OTHER, SELFPAY ==
--- NOTE | 2024-05-25 12:14 | HO.ANESPROP2 ---
Documented by User: Monica Mishra NP 05/25/24 12:15 HPI - Anesthesia Eval Consult details Narrative: 78yo F for Upper Endoscopy and Colonoscopy PMF Active Problems Active Problems: All Active Problems Otitis media of both ears (Acute) Annual physical exam (Acute) Vitamin D deficiency (Acute) Neuropathy (Acute) Iron deficiency (Acute) Raynauds disease (Acute) Varicose veins of left lower extremity with inflammation (Acute) Vasculitis (Acute) Osteoarthritis of right hip (Acute) Status post total replacement of right hip (Acute) Otalgia of both ears (Acute) Pain of left thumb (Acute) Sinusitis (Acute) Osteoarthritis of left knee (Acute) Osteoarthritis of right knee (Acute) Osteoarthritis of left hip (Acute) Cough (Acute) Upper respiratory tract infection (Acute) Vaginal itching (Acute) Balance disorder (Acute) Hx of meningioma of the brain (Acute) Trigeminal neuralgia of right side of face (Acute) Lip pain (Acute) Otitis media of right ear (Acute) Post-nasal drip (Acute) Hypertension (Acute) Cataract (Acute) RLS (restless legs syndrome) (Acute) Insomnia (Acute) Anxiety (Acute) History of colonoscopy (Acute) Hx of breast cancer (Acute) Multiple myeloma (Acute) Past Medical History Medical History Osteoarthritis of right hip Personal history of COVID-19 Pain Slow to wake up after anesthesia Achalasia of esophagus Otitis media of right ear Cataract RLS (restless legs syndrome) Insomnia Anxiety Hx of breast cancer Post-nasal drip Multiple myeloma Ankle fracture, left GERD (gastroesophageal reflux disease) Hypertension Family History Family History Father Lung cancer Mother Diabetes Hypertension Heart attack Other Mental health disorder Family history of problems with anesthesia: No Surgical History Surgical History History of esophagogastroduodenoscopy (EGD) History of right hip replacement (09/11/23) Hx of bilateral cataract extraction History of lumpectomy of right breast History of History of surgery on left wrist History of colonoscopy H/O left knee surgery Status post ORIF of fracture of ankle (~2020) History of Problems with Anesthesia: No Social History Social History Household Members: None Household Members Other:: , 2 sons, Housing: House Are you a primary home health care worker to a significant other at home: No Do you presently have visiting nurse or other home services: No Comment: pressure Patient Tobacco Use Status: Former Tobacco user Tobacco use type: Cigarette Years Smoked: 2 e-Cigarette/Vaping Use: Never Used Second Hand Smoke Exposure: No Use of substances other than those prescribed or required for medical reasons: No Have you been hit, kicked, punched, or otherwise hurt by someone within the past year? If so, by whom?: No Are you DNR?: No Advance Directives: No Advance Directives Information Provided: Yes Advance Directives on File: No Recently lost weight without trying: No Eating poorly because of decreased appetite: No Nutrition Risks: No Nutritional Risk service: No Current occupational status: retired Cognitive needs: No Hearing needs: No Vision needs: Yes Meds Allergies Allergy/AdvReac Type Severity Reaction Status Date / Time No Known Allergies Allergy Verified 04/03/24 11:26 Home Medications ?Medication ?Instructions ?Recorded ?Confirmed ?Last Taken ?Type acyclovir 400 mg tablet 400 mg PO BID 11/30/21 02/04/24 09/10/23 History calcium acetate PO .daily 11/30/21 02/04/24 09/10/23 History docusate sodium 250 mg capsule 250 mg PO BID 11/30/21 02/04/24 Unknown History (Stool Softener) probiotics See Rx Instructions PO .COMPLEX 08/21/22 02/04/24 09/10/23 History dorzolamide 22.3 mg-timolol 6.8 ophthalmic (eye) 08/13/23 02/04/24 09/10/23 History mg/mL eye drops prochlorperazine maleate 5 mg 10 mg PO DAILY PRN Nausea And 08/28/23 02/04/24 Unknown History tablet Vomiting ixazomib 3 mg capsule (Ninlaro) mg PO 09/04/23 02/04/24 Unknown History lisinopril 2.5 mg tablet 2.5 mg PO DAILY 01/13/24 02/04/24 Unknown History Exam Pertinent Lab Results Pertinent Lab Results: Laboratory Tests 01/13/24 01/22/24 14:45 10:20 WBC 2.8 L Hgb 15.2 Hct 45.4 Plt Count 147 L D Sodium 142 Potassium 4.1 Chloride 104 Carbon Dioxide 30 H BUN 21 H Creatinine 1.34 Assessment and Plan Assessment Anesthesia Assessment: Chart Reviewed Final Anesthetic Review Family History of Problems with Anesthesia: No History of Problems with Anesthesia: No Documented by User: Morenita Navas MD 05/26/24 10:37 [facility] Past Medical History Medical History Osteoarthritis of right hip Personal history of COVID-19 Pain Slow to wake up after anesthesia Achalasia of esophagus Otitis media of right ear Cataract RLS (restless legs syndrome) Insomnia Anxiety Hx of breast cancer Post-nasal drip Multiple myeloma Ankle fracture, left GERD (gastroesophageal reflux disease) Hypertension Family History Family History Father Lung cancer Mother Diabetes Hypertension Heart attack Other Mental health disorder Surgical History Surgical History History of esophagogastroduodenoscopy (EGD) History of right hip replacement (09/11/23) Hx of bilateral cataract extraction History of lumpectomy of right breast History of History of surgery on left wrist History of colonoscopy H/O left knee surgery Status post ORIF of fracture of ankle (~2020) Social History Social History Household Members: None Household Members Other:: , 2 sons, Housing: House Are you a primary home health care worker to a significant other at home: No Do you presently have visiting nurse or other home services: No Comment: pressure Patient Tobacco Use Status: Former Tobacco user Tobacco use type: Cigarette Years Smoked: 2 e-Cigarette/Vaping Use: Never Used Second Hand Smoke Exposure: No Use of substances other than those prescribed or required for medical reasons: No Have you been hit, kicked, punched, or otherwise hurt by someone within the past year? If so, by whom?: No Are you DNR?: No Advance Directives: No Advance Directives Information Provided: Yes Advance Directives on File: No Recently lost weight without trying: No Eating poorly because of decreased appetite: No Nutrition Risks: No Nutritional Risk service: No Current occupational status: retired Cognitive needs: No Hearing needs: No Vision needs: Yes Meds Allergies Allergy/AdvReac Type Severity Reaction Status Date / Time No Known Allergies Allergy Verified 04/03/24 11:26 Home Medications ?Medication ?Instructions ?Recorded ?Confirmed ?Last Taken ?Type acyclovir 400 mg tablet 400 mg PO BID 11/30/21 02/04/24 09/10/23 History calcium acetate PO .daily 11/30/21 02/04/24 09/10/23 History docusate sodium 250 mg capsule 250 mg PO BID 11/30/21 02/04/24 Unknown History (Stool Softener) probiotics See Rx Instructions PO .COMPLEX 08/21/22 02/04/24 09/10/23 History dorzolamide 22.3 mg-timolol 6.8 ophthalmic (eye) 08/13/23 02/04/24 09/10/23 History mg/mL eye drops prochlorperazine maleate 5 mg 10 mg PO DAILY PRN Nausea And 08/28/23 02/04/24 Unknown History tablet Vomiting ixazomib 3 mg capsule (Ninlaro) mg PO 09/04/23 02/04/24 Unknown History lisinopril 2.5 mg tablet 2.5 mg PO DAILY 01/13/24 02/04/24 Unknown History Exam Airway Mallampati Class: II TM Dist: >3cm Neck ROM: Full Heart: rrr Lungs: cta Assessment and Plan Assessment Anesthesia Assessment: Anesthesia Plan Discussed Final Anesthetic Review NPO: Yes ASA Class: III Final Preanesthetic Review: No Changes in Pt Med Stat, Meds/Allgs Chart Reviewed, Consent Obtained/Reviewed and Anes Risks/Benef Reviewed Patient Risk: Intermediate Procedure Risk: Low Anesthetic Plan Anesthetic Plan: MAC: Disposition: Standard PACU
[2024-05-26 09:24] VITALS: BMI 25.9
[2024-05-26 09:41] VITALS: BP 129/69; PULSE 60; RESP 16; TEMP 36.9; O2SAT 97
[2024-05-26] MEDS: Lactated Ringers 1,000 ML 100 ML IVCONT (10:26)
[2024-05-26] MEDS: Sodium Phosphate,Mono-Dibasic 133 ML ENEMA PR (10:45)
--- NOTE | 2024-05-26 10:57 | PC.NURSE ---
patient reported having trouble with bowel prep, I called the directional survey drafter Dr. Knapp and was given addition prep instructions. Patient took extra dose of Miralax and administered one fleet enema at home. Patient reporting still dark brown liquid. Dr. Gamboa aware and orders received for 1 fleet enema now. Enema given and light chu/yellowish liquid return noted by this RN.
--- NOTE | 2024-05-26 11:50 | MHC.SHP ---
Pre-Procedural Eval Section A - 24 Hr Update-Section A only Date of Service: 05/26/24 Section B - Complete if H&P > 30 days Chief Complaint: Anemia, unspecified Details of Present Illness: Osteoarthritis of right hip Personal history of COVID-19 Pain Slow to wake up after anesthesia Achalasia of esophagus Otitis media of right ear Cataract RLS (restless legs syndrome) Insomnia Anxiety Hx of breast cancer Post-nasal drip Multiple myeloma Ankle fracture, left GERD (gastroesophageal reflux disease) Hypertension Surgical History (Updated 01/13/24 @ 13:31 by REESE Brannon) History of esophagogastroduodenoscopy (EGD) History of right hip replacement (09/11/23) Hx of bilateral cataract extraction History of lumpectomy of right breast History of History of surgery on left wrist History of colonoscopy H/O left knee surgery Status post ORIF of fracture of ankle (~2020) Allergies: Allergies Allergy/AdvReac Type Severity Reaction Status Date / Time No Known Allergies Allergy Verified 04/03/24 11:26 Review of Systems Review of Systems Comment: Ten point ROS negative Exam Exam Comment: Gen appear: No acute distress HEENT: no icterus Chest: No overt resp distress Abd: soft, nontender, nondistended Psych: Stable affect, answering questions appropriately Neuro: A/Ox3 noted to move all extremities spontaneously Ext: no peripheral edema Plan Diagnosis/Plan: Unchanged I have reviewed the history and physical and performed a pertinent physical examination on my patient. No changes have occurred unless specified. Time Spent With Patient Time: Total time managing care of this patient today ____ minutes.
--- NOTE | 2024-05-26 12:40 | P.OPN-COLO_ITS ---
Colonoscopy Operative Note Operative Note Date of Service: 05/26/24 Narrative: Procedure: Upper endoscopy and colonoscopy Indication: Anemia Endoscopist: Meera Gamboa MD Anesthesia Provider: Leana Mace CRNA Anesthesia type: MAC Instrument: [id number] and [id number] Colonoscopy Procedure:? The procedure, indications, preparation and potential complications were reviewed with the patient, who indicated understanding and gave written informed consent to proceed. A digital rectal exam was performed which was abnormal for external hemorrho ids.? A distal attachment cap was affixed to the tip of the scope and the colonoscope was then inserted through the anus and advanced through the colon and advanced to the cecum.? Appendiceal orifice and ileocecal valve could not be visualised. Mucosa was carefully examined under high definition white light as the instrument was slowly withdrawn in a retrograde panoramic fashion. Retroflexion was performed in rectum. The procedure was not difficult. The quality of the prep was BBPS: 0+1+2 = inadequate Withdrawal time N/A Limitations: Poor prep Findings: Mucosa: Copious semi-solid and liquid stool was present especially in the right colon limiting visualization. The colonoscopy was therefore aborted. Protruding lesions: * Large internal hemorrhoids without stigmata of recent bleeding. EGD Procedure:?? The patient was then turned for the upper endoscopy The endoscope was introduced through the bite block, and advanced to the 2nd part of the duodenum. The mucosa was carefully examined on slow withdrawal of the endoscope. The patient tolerated the procedure well. There were no immediate complications.? EGD Findings:? * Esophagus:? The Z-line was at 40 cm and irregular up to 37 cm. Cold forceps biopsies were taken from the GE junction to rule out Barretts esophagus. There was a large paraesophageal hernia. * Stomach:?Scant heme in the body of the stomach. Numerous sessile polyps were noted in the body of the stomach. Retroflexion was performed in the cardia that showed Hill grade IV hiatal hernia. Random cold forceps biopsies were taken to rule out H pylori. Cold forceps biopsies of help desk representative polyps were also taken for histology. * Duodenum:? Normal duodenal mucosa to the extent examined. Cold forceps biopsies were taken from the duodenal bulb and 2nd portion of the duodenal to rule out celiac sprue. Impression: * [place] colored mucosa extending up to 37 cm from GEJ (biopsy) * Hiatal hernia * Gastritis (biopsy) * Likely fundic gland polyps (biopsy) * Normal duodenal mucosa (biopsy) * Incomplete colonoscopy due to poor prep * Hemorrhoids Recommendations:?? * Follow-up path results * Barium esophagogram for assessment of hiatal hernia * Repeat colonoscopy to be booked in 6 months. Pt will likely need additional day of CLD and/or 3 days of miralax BID prior to taking colo prep.
[2024-05-26 12:49] VITALS: BP 138/83; PULSE 84; RESP 16; TEMP 36.1; O2SAT 97
[2024-05-26 12:55] VITALS: BP 139/77; PULSE 65; RESP 16; TEMP 36.1; O2SAT 98
== END 2024-05-26 14:22 | disposition home or self-care (01) ==
PROVIDERS: PCP Internal Medicine; Visit Provider Internal Medicine
PROC: (CPT 43239; principal; 2024-05-26 10:00)
DX: K31.7 Polyp of stomach and duodenum (principal); K22.9 Disease of esophagus, unspecified; D50.9 Iron deficiency anemia, unspecified; K44.9 Diaphragmatic hernia without obstruction or gangrene; K21.9 Gastro-esophageal reflux disease without esophagitis; Z12.11 Encounter for screening for malignant neoplasm of colon; K64.8 Other hemorrhoids; K64.4 Residual hemorrhoidal skin tags; Z91.199 Patient's noncompliance with other medical treatment and regimen due to unspecified reason; I10 Essential (primary) hypertension; I73.00 Raynaud's syndrome without gangrene; Z85.3 Personal history of malignant neoplasm of breast; Z87.891 Personal history of nicotine dependence
CPT/HCPCS: 43239; 45378; 88305; 88313; 88342; J1596; J2250; J2704

== ENCOUNTER → 2024-05-26 08:37 | Outpatient (BNV) | payer MEDICARE, OTHER, SELFPAY | PROVIDERS: PCP Internal Medicine; Visit Provider Internal Medicine | DX: D64.9 Anemia, unspecified (principal); Z91.199 Patient's noncompliance with other medical treatment and regimen due to unspecified reason; K64.8 Other hemorrhoids; K29.70 Gastritis, unspecified, without bleeding; K44.0 Diaphragmatic hernia with obstruction, without gangrene | CPT/HCPCS: 43239; 45378 ==

== ENCOUNTER 2024-06-01 09:30 | Outpatient (REF) | payer MEDICARE, OTHER, SELFPAY ==
--- NOTE | ~2024-06-01 | FL_ITS ---
EXAMINATION: XR FLUOROSCOPY UPPER GI WITH AIR CLINICAL INFORMATION: Dysphagia. History achalasia status post Heller myotomy COMPARISON: Upper GI July 2018 TECHNIQUE: Fluoroscopic air contrast upper GI examination was performed utilizing standard techniques with thin and thick barium and effervescent granules. Numerous spot images were obtained. FINDINGS: Lateral cine images of the oropharynx and hypopharynx demonstrate normal swallow mechanism with normal epiglottic inversion and soft palate elevation. There is early contrast spillover and pooling in the vallecula and piriform sinuses. No tracheal penetration, glottic or subglottic aspiration identified. No nasopharyngeal reflux present. Hypopharyngeal structures appear normal without evidence of mass or diverticulum. There is mild cricopharyngeal achalasia present. Dual and single contrast images of the esophagus demonstrate a patulous esophagus. The esophageal mucosa has a granular appearance, suggestive of esophagitis. No evidence of stricture, mass, or ulcerations identified. Esophageal peristalsis is severely disorganized. A small type I hiatal hernia is present. Persistent moderate narrowing of the GE junction is present. No significant gastroesophageal reflux was seen during the course of the examination and on reflux views. Dual contrast and single contrast images of the stomach demonstrated a normal contour. Evaluation of the gastric mucosa is mildly limited due to underdistention of the stomach from poor tolerance of the effervescent granules. The gastric rugal folds have a thickened appearance, which suggests gastritis. There are several greater curvature small rounded filling defects suggesting hyperplastic polyps. Contrast freely passed into the gastric antrum and duodenal bulb without delay. Single and air-contrast images of the duodenal bulb demonstrate no abnormality. The duodenal sweep has a normal appearance, course, and mucosal fold appearance. The imaged proximal jejunum has a normal fold pattern and caliber. Post surgical changes are seen in the thoracic and lumbar spine consistent with prior history of multilevel vertebroplasty. FLUOROSCOPY TIME: 4 minutes 17 seconds Number of Spot Images: 7 Number of Cine: 15 DOSE AREA PRODUCT: 3756 uGy-m2 (microgray-meter squared) FL/FL barium swallow with air IMPRESSION: 1. Mild cricopharyngeal achalasia. 2. Patulous esophagus with severely disorganized esophageal peristalsis consistent with severe esophageal dysmotility. 3. Granular appearance of the esophageal mucosa, suggestive of esophagitis. 4. Moderate persistent narrowing of the GE junction. 5. Small type I hiatal hernia. 6. The gastric rugal folds have a thickened appearance, which suggests gastritis, with several rounded filling defects along the greater curvature of the body suggesting hyperplastic polyps. 7. Status post multilevel thoracic and lumbar vertebroplasty. This procedure was performed by Iván Durand PA-C, and supervised by Dr. Espinosa Electronically signed by: Yovanny Espinosa MD 06/02/2024 04:45 PM EDT
== END 2024-06-01 09:31 | disposition home or self-care (01) ==
LOC: HO.XRAY 09:30
PROVIDERS: PCP Internal Medicine; Visit Provider Internal Medicine
DX: K44.9 Diaphragmatic hernia without obstruction or gangrene (principal)
CPT/HCPCS: 74221

== ENCOUNTER → 2024-06-01 09:33 | Outpatient (BNV) | payer MEDICARE, OTHER, SELFPAY | PROVIDERS: PCP Internal Medicine; Visit Provider Radiology Diagnostic Radiology | DX: R13.10 Dysphagia, unspecified (principal) | CPT/HCPCS: 74246 ==

== ENCOUNTER 2024-06-16 13:52 | Outpatient (AMB) | payer MEDICARE, OTHER, SELFPAY ==
--- NOTE | 2024-06-16 13:55 | MHC.OFFVIS ---
Vital Signs 06/16/24 13:58 Height 5 ft 5 in Weight 153 lb 14.122 oz BMI 25.6 BP 140/88 H Blood Pressure Location Lt brachial Position Sitting Pulse 60 Pulse Source Pulse Oximeter Pulse Oximetry (%) 97 Oxygen Delivery Method Room Air Intake Visit Reasons: S/P Double; Dr. Gamboa Intake Note: Lillian presents in office today for a scheduled s/p FUV. CC: Pt reports any new concerns or sx pertaining to the procedure. Pt does report that they are still experiencing chronic sx (constipation). Pt is here to discuss results of the procedure. Spanner Operator Required: No Allergies No Known Allergies Allergy (Verified 06/16/24 13:56) HPI HPI S/P Double; Dr. Gamboa: Details: LAST VISIT Iron deficiency Anemia GERD (gastroesophageal reflux disease) Plan Patient denies any GI, cardiac or respiratory symptoms.? Denies any issues with anesthesia in the past.? Denies any history of sleep apnea.? No history infectious diseases in the past or present.? Not on any anticoagulation therapy.? No family or personal history of colon cancer. Last colonoscopy in 2021. Patient also had upper endoscopy done as well. History of achalasia repair in 2019.? Patient denies melena, hematochezia, unintentional weight loss or ribbon like stools.? Anemia, iron infusions, last 1 was couple weeks ago. If proven in her H&H, however no source of blood loss found. 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 Patient does reports that her acid reflux symptoms are suppressed with pantoprazole well, however she will start taking it in the morning half an hour before breakfast to keep her symptoms at bay after eating. Discussed at length the pre-procedure,? prep, diet & medications as well as what to expect prior, during and after the procedure.?? Stressed the importance of good bowel prep. ?Recommended the use of Vaseline or Calmoseptine OTC & baby wipes with bowel movements to promote comfort.? ?Patient verbalizes understanding and agrees to plan of care.? She was given the opportunity to ask questions and all questions answered.? We will see her after the procedure.? Orders Orders Complete Blood Count no Diff Today K21.9 Medications New bisacodyl (Dulcolax (bisacodyl)) take 4 tabs at noon the day before your colonoscopy 20 mg (4 x 5 mg) PO ONCE 4 tabs 0RF 1 day Z12.11 polyethylene glycol 3350 (Miralax) As directed by gastroenterology department at [facility] 238 grams PO ONCE 238 grams 0RF Z12.11 Changed Changed From pantoprazole 40 mg PO BEDTIME Changed To pantoprazole 40 mg PO DAILY 30 tabs 0RF UPPER ENDOSCOPY AND COLONOSCOPY Findings: Mucosa: Copious semi-solid and liquid stool was present especially in the right colon limiting visualization. The colonoscopy was therefore aborted. Protruding lesions: Large internal hemorrhoids without stigmata of recent bleeding. EGD Procedure:?? The patient was then turned for the upper endoscopy The endoscope was introduced through the bite block, and advanced to the 2nd part of the duodenum. The mucosa was carefully examined on slow withdrawal of the endoscope. The patient tolerated the procedure well. There were no immediate complications.? EGD Findings:? Esophagus:? The Z-line was at 40 cm and irregular up to 37 cm. Cold forceps biopsies were taken from the GE junction to rule out Barretts esophagus. There was a large paraesophageal hernia. Stomach:?Scant heme in the body of the stomach. Numerous sessile polyps were noted in the body of the stomach. Retroflexion was performed in the cardia that showed Hill grade IV hiatal hernia. Random cold forceps biopsies were taken to rule out H pylori. Cold forceps biopsies of new accounts banking representative polyps were also taken for histology. Duodenum:? Normal duodenal mucosa to the extent examined. Cold forceps biopsies were taken from the duodenal bulb and 2nd portion of the duodenal to rule out celiac sprue. Impression: [place] colored mucosa extending up to 37 cm from GEJ (biopsy) Hiatal hernia Gastritis (biopsy) Likely fundic gland polyps (biopsy) Normal duodenal mucosa (biopsy) Incomplete colonoscopy due to poor prep Hemorrhoids Recommendations:?? Follow-up path results Barium esophagogram for assessment of hiatal hernia Repeat colonoscopy to be booked in 6 months. Pt will likely need additional day of CLD and/or 3 days of miralax BID prior to taking colo prep. PATHOLOGY RESULTS Diagnosis A. Duodenum, biopsy: Duodenal mucosa within normal limits; preserved villous architecture and no increased intraepithelial lymphocytes seen. B. Stomach, random, biopsy: Gastric antral mucosa with mild reactive gastropathy; gastric body mucosa within normal limits; negative for Helicobacter pylori, intestinal metaplasia and dysplasia. C. Stomach, polyps, biopsy: Hyperplastic gastric polyp. D. Gastroesophageal junction, biopsy: Squamocolumnar junctional mucosa with mild chronic inflammation and focal intestinal metaplasia consistent with Alberto's esophagus; negative for dysplasia (see comment). COMMENT (D): These findings are consistent with Alberto's esophagus biopsies were taken above the anatomic gastroesophageal junction. Clinical and endoscopic correlation is advised TODAY'S VISIT Patient is here today for follow-up and to discuss upper endoscopy and colonoscopy results. Both procedures and biopsies discussed with patient. Confirmation of Barretts. Patient had her barium swallow done that showed small hiatal hernia, narrowing at the GE junction, severely disorganized peristalses and acid reflux. Results discussed with patient. Patient is taking pantoprazole and reports that she has been feeling well. Denies any dyspepsia, dysphagia or odynophagia. Patient is going to be having knee surgery in [place] in the next couple months. Currently patient is constipated. Unable to complete colonoscopy as patient had suboptimal prep. Patient will need to be on bowel management. Patient reports that she always has been constipated all of her life. 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 Osteoarthritis of right hip Personal history of COVID-19 Pain Slow to wake up after anesthesia Achalasia of esophagus Otitis media of right ear Cataract RLS (restless legs syndrome) Insomnia Anxiety Hx of breast cancer Post-nasal drip Multiple myeloma Ankle fracture, left GERD (gastroesophageal reflux disease) Hypertension Surgical History History of esophagogastroduodenoscopy (EGD) History of right hip replacement (09/11/23) Hx of bilateral cataract extraction History of lumpectomy of right breast History of History of surgery on left wrist History of colonoscopy H/O left knee surgery Status post ORIF of fracture of ankle (~2020) Family History Father Lung cancer Mother Diabetes Hypertension Heart attack Other Mental health disorder Social History Household Members: None Household Members Other:: , 2 sons, Housing: House Are you a primary resident care director to a significant other at home: No Do you presently have visiting nurse or other home services: No Comment: pressure Patient Tobacco Use Status: Former Tobacco user Tobacco use type: Cigarette Years Smoked: 2 e-Cigarette/Vaping Use: Never Used Second Hand Smoke Exposure: No service: No Current occupational status: retired Cognitive needs: No Hearing needs: No Vision needs: Yes Review of Systems Const Denies weight gain and Denies weight loss ENT Reports no additional complaints, Denies dysphagia and Denies odynophagia Card Reports no additional complaints Resp Reports no additional complaints GI Denies abdominal pain, Denies belching, Denies melena, Denies bloating, Denies change in bowel habits, Reports constipation, Denies dysphagia, Denies excessive flatus, Denies dyspepsia, Denies heartburn, Denies diarrhea, Denies loose stools, Denies nausea, Denies odynophagia and Denies vomiting Musc Reports no additional complaints Neuro Reports no additional complaints Psych Reports no additional complaints Endo Reports no additional complaints Physical Exam Vital Signs: Last Vital Signs Pulse 60 06/16/24 13:58 BP 140/88 H 06/16/24 13:58 Pulse Ox 97 06/16/24 13:58 Oxygen Delivery Method Room Air 06/16/24 13:58 BMI result Body Mass Index 25.6 Const General: healthy appearing, no acute distress and well developed Nutritional Appearance: well nourished Orientation/consciousness: patient oriented x3 Resp Effort & Inspection: normal respiratory effort, able to speak in complete sentences, no tracheal deviation and symmetric chest movement Auscultation: clear to auscultation bilaterally Cardio Rate: regular rate GI Inspection: Yes normal to inspection and No distended Palpation (GI): Soft to palpation, not firm, nontender and No hepatosplenomegaly present Auscultation: normal bowel sounds General: Yes no CVA tenderness Back/Spine/Pelvis Back: no CVA tenderness Skin General skin exam: elasticity normal, turgor normal and dry skin Neuro General: patient oriented x3 Psych Appearance: grossly normal Mental Status: mental status grossly normal Results Reviewed Results Reviewed: BARIUM SWALLOW: MPRESSION: 1. Mild cricopharyngeal achalasia. 2. Patulous esophagus with severely disorganized esophageal peristalsis consistent with severe esophageal dysmotility. 3. Granular appearance of the esophageal mucosa, suggestive of esophagitis. 4. Moderate persistent narrowing of the GE junction. 5. Small type I hiatal hernia. 6. The gastric rugal folds have a thickened appearance, which suggests gastritis, with several rounded filling defects along the greater curvature of the body suggesting hyperplastic polyps. 7. Status post multilevel thoracic and lumbar vertebroplasty. Assessment & Plan Assessment & Plan (1) Iron deficiency: Comment: getting Iron infusion at [facility] Code(s): E61.1 - Iron deficiency Category: Medical (2) Anemia: Code(s): D64.9 - Anemia, unspecified Qualifiers: Anemia type: iron deficiency (3) GERD (gastroesophageal reflux disease): Code(s): K21.9 - Gastro-esophageal reflux disease without esophagitis Qualifiers: Esophagitis presence: without esophagitis Qualified Code(s): K21.9 - Gastro-esophageal reflux disease without esophagitis (4) Hiatal hernia: Code(s): K44.9 - Diaphragmatic hernia without obstruction or gangrene Category: Medical (5) 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 She will call our office if she will continue to have constipation. Script for Dulcolax sent. Patient was encouraged to increase fluid intake and activity to promote better bowel motility. Patient will be going for knee surgery and most likely with be giving pain medications after her surgery. Patient was encouraged to take stool softeners in addition to Dulcolax to help her move her bowels. I will see patient after the procedure. Long discussion about good bowel prep and clear liquid diet day before procedure. Patient will be given bottle of magnesium citrate to take if she will not be able to empty better. Message sent to surgical schedulers to book procedure for January. Patient is agreeable to this plan and verbalizes understanding of instructions. She was given the opportunity to ask questions and all questions answered. Thank you for allowing me to participate in her care Medications: New bisacodyl (Dulcolax (bisacodyl)) 10 mg (2 x 5 mg) PO BEDTIME 180 tabs 4RF polyethylene glycol 3350 (Miralax) As directed by gastroenterology department at [facility] 238 grams PO ONCE 238 grams 0RF Z12.11 - Encounter for screening for malignant neoplasm of colon magnesium citrate Yvette la botella entera la noche anterior a duarte procedimiento 296 mL PO ONCE 296 mL 0RF Z12.11 - Encounter for screening for malignant neoplasm of colon Coding Level of Care Code Est Pt Level 4 (13012) Diagnoses Iron deficiency E61.1 Anemia D64.9 Anemia type: iron deficiency Gastroesophageal reflux disease without esophagitis K21.9 Esophagitis presence: without esophagitis Hiatal hernia K44.9 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
[2024-06-16 13:58] VITALS: BP 140/88; PULSE 60; O2SAT 97; BMI 25.6
== END 2024-06-16 14:58 | disposition home or self-care (01) ==
PROVIDERS: PCP Internal Medicine; Visit Provider Nurse Practitioner Family
DX: E61.1 Iron deficiency (principal); D64.9 Anemia, unspecified; K21.9 Gastro-esophageal reflux disease without esophagitis; K44.9 Diaphragmatic hernia without obstruction or gangrene; K22.70 Barrett's esophagus without dysplasia
CPT/HCPCS: 99214

== ENCOUNTER → 2024-06-16 13:52 | Outpatient (BNVA) | payer MEDICARE, OTHER, SELFPAY | PROVIDERS: PCP Internal Medicine; Visit Provider Nurse Practitioner Family | DX: K21.9 Gastro-esophageal reflux disease without esophagitis (principal); K44.9 Diaphragmatic hernia without obstruction or gangrene; K22.70 Barrett's esophagus without dysplasia; E61.1 Iron deficiency; D64.9 Anemia, unspecified | CPT/HCPCS: 99212 ==

== ENCOUNTER 2024-07-14 10:48 | Outpatient (AMB) | payer MEDICARE, OTHER, SELFPAY ==
[2024-07-14 11:05] VITALS: BP 96/60; PULSE 73; O2SAT 95; BMI 25.8
--- NOTE | 2024-07-14 11:05 | MHC.PC.OV ---
Vital Signs 07/14/24 11:05 Height 5 ft 5 in Weight 155 lb BMI 25.8 BP 96/60 Blood Pressure Location Rt brachial Position Sitting Pulse 73 Pulse Source Pulse Oximeter Pulse Oximetry (%) 95 Oxygen Delivery Method Room Air Intake Visit Reasons: 6 months follow up Intake Note: Pt is here today for 6 months follow up visit. Allergies No Known Allergies Allergy (Verified 07/14/24 11:29) Medication List - Last Reconciled 07/14/24 by Chen Pop MD acetaminophen 650 mg (2 x 325 mg) PO Q6H PRN 30 days amoxicillin 2,000 mg (4 x 500 mg) PO ONCE 1 day aspirin 81 mg PO DAILY bisacodyl (Dulcolax (bisacodyl)) 10 mg (2 x 5 mg) PO BEDTIME calcium acetate calcium 1200 mg vitamin d3 1000 units cane As directed docusate sodium (Stool Softener) 250 mg PO BID dorzolamide-timolol 22.3-6.8 mg/mL ophthalmic (eye) duloxetine 60 mg PO DAILY fluticasone propionate 50 mcg/actuation (Allergy Relief (fluticasone)) 1 spray intranasal DAILY gabapentin 600 mg PO TID ixazomib (Ninlaro) mg PO lidocaine HCl 2% (Lidocaine Viscous) PO lisinopril 2.5 mg PO DAILY magnesium citrate 296 mL PO ONCE montelukast (Singulair) 10 mg PO BEDTIME pantoprazole 40 mg PO DAILY polyethylene glycol 3350 (Miralax) 238 grams PO ONCE [Powerlift reclinder slim width and depth ] [probiotics 100mg orally; ] prochlorperazine maleate 10 mg PO DAILY PRN [Raised toilet seat duration: lifetime] ropinirole 6 mg (3 x 2 mg) PO BEDTIME [SHOWER CHAIR As directed] trazodone 1-2 tabl orally bedtime; valacyclovir 1,000 mg PO TID walker Folding Front wheeled walker Tobacco use date assessed: 07/14/24 Dental Screening Dental Screen Date: 01/22/24 HPI 6 months follow up HPI Details Pt presents for f/u. Pt will have L knee arthro[facility] at [facility] tomorrow. Chronic anxiety and pain are controlled on current medications. 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 Osteoarthritis of right hip Personal history of COVID-19 Pain Slow to wake up after anesthesia Achalasia of esophagus Otitis media of right ear Cataract RLS (restless legs syndrome) Insomnia Anxiety Hx of breast cancer Post-nasal drip Multiple myeloma Ankle fracture, left GERD (gastroesophageal reflux disease) Hypertension Surgical History History of esophagogastroduodenoscopy (EGD) History of right hip replacement (09/11/23) Hx of bilateral cataract extraction History of lumpectomy of right breast History of History of surgery on left wrist History of colonoscopy H/O left knee surgery Status post ORIF of fracture of ankle (~2020) Family History Father Lung cancer Mother Diabetes Hypertension Heart attack Other Mental health disorder Social History Household Members: None Household Members Other:: , 2 sons, Housing: House Are you a primary patient care technician to a significant other at home: No Do you presently have visiting nurse or other home services: No Comment: pressure Patient Tobacco Use Status: Former Tobacco user Tobacco use type: Cigarette Years Smoked: 2 e-Cigarette/Vaping Use: Never Used Second Hand Smoke Exposure: No service: No Current occupational status: retired Cognitive needs: No Hearing needs: No Vision needs: Yes Questionnaire PHQ-9 Over the last 2 weeks, how often have you been bothered by any of the following problems? 1. Little interest or pleasure in doing things: not at all 2. Feeling down, depressed, or hopeless: not at all 3. Trouble falling or staying asleep, or sleeping too much: not at all 4. Feeling tired or having little energy: not at all 5. Poor appetite or overeating: not at all 6. Feeling bad about yourself - or that you are a failure or have let yourself or your family down: not at all 7. Trouble concentrating on things, such as reading the newspaper or watching television: not at all 8. Moving or speaking so slowly that other people could have noticed. Or the opposite - being so fidgety or restless that you have been moving around a lot more than usual: not at all 9. Thoughts that you would be better off or of hurting yourself in some way: not at all Total score: 0 Depression Screening Interpretation: Negative Depression Screening Done: Yes 02153 - PHQ-9 Billing: Yes Source: Developed by Drs. Talha Steve, Halina Pena, Levar Earl and colleagues, with an educational ramón from [employer]. Thrive Questionnaire Date Thrive assessed: 07/14/24 I am a: Patient What is your living situation today?: I have a steady place to live Within the past 12 months, did the food you bought not last and you didn't have the money to get more?: Never true Within the past 12 months, did you worry whether your food would run out before you got money to buy more?: Never true Do you have trouble paying for medicines?: No Do you have trouble getting transportation to medical appointments?: No Do you have trouble paying your heating and electricity bill?: No Do you have trouble taking care of your child, family member or friend?: No Do you have trouble with day-to-day activities such as bathing, preparing meals, shopping, managing finances, etc.?: No Are you currently unemployed and looking for a job?: No Are you interested in more education?: No Please select the resources that you would like help with: None Currently or been in a relationship where the following occur: No concerns reported THRIVE Score: 0 AUDIT C Alcohol Use Questionnaire (AUDIT-C) 1. How often do you have a drink containing alcohol?: Monthly or less 2. How many drinks containing alcohol do you have on a typical day when you are drinking?: 1 or 2 3. How often do you have six or more drinks on one occasion?: Never Total Score: 1 ROCK-7 AMB Questionnaire ROCK-7 Date ROCK - 7 assessed: 07/14/24 Feeling nervous, anxious, or on edge: 0 = Not at all Not being able to stop or control worryin = Several days Worrying too much about different things: 1 = Several days Trouble relaxin = Several days Being so restless that it is hard to sit still: 0 = Not at all Becoming easily annoyed or irritable: 0 = Not at all Feeling afraid as if something awful might happen: 0 = Not at all Total ROCK-7 score (0-4 normal; 5-9 mild; 10-14 moderate; 15-21 severe): 3 Source: Developed by Drs. Talha Steve, Halina Pena, Levar Earl and colleagues, with an educational ramón from [employer]. ROCK-7 Assessment Billing ROCK-7 Assessment Tool: ROCK-7 Assessment 69459 Review of Systems Const All systems reviewed & are unremarkable except as noted in HPI and below Eyes Reports no additional complaints ENT Reports no additional complaints Card Reports no additional complaints Resp Reports no additional complaints GI Reports no additional complaints Reports no additional complaints Physical exam (Primary Care) Vital Signs: Last Vital Signs Pulse 73 07/14/24 11:05 BP 96/60 07/14/24 11:05 Pulse Ox 95 07/14/24 11:05 Oxygen Delivery Method Room Air 07/14/24 11:05 BMI result Body Mass Index 25.8 Tobacco/Smoking Status: Tobacco use Status Tobacco use date assessed 07/14/24 07/14/24 11:32 Patient Tobacco Use Status Former Tobacco user 07/14/24 11:05 Tobacco use type Cigarette 07/14/24 11:05 e-Cigarette/Vaping Use Never Used 07/14/24 11:05 PHQ-9: PHQ-9 Score PHQ-9: Total score 0 07/14/24 12:06 Depression Screening Interpretation: Negative Thrive Assessment: Date of Thrive Assessment Date Thrive assessed 07/14/24 07/14/24 11:32 Currently or been in a relationship where the following occur: No concerns reported Const General: no acute distress HENMT Head: Yes normal to inspection Mouth: Normal oral and palatal mucosa present Throat: Yes posterior oropharynx normal Resp Effort & Inspection: normal respiratory effort Auscultation: clear to auscultation bilaterally Cardio Rhythm: regular rhythm Heart sounds: S1 normal heart sound present and S2 normal heart sound present GI Inspection: Yes normal to inspection Palpation (GI): Soft to palpation Percussion: Yes normal to percussion Auscultation: normal bowel sounds Coding Level of Care Code Est Pt Level 4 (09556) Diagnoses Urinary incontinence R32 Neuropathy G62.9 Anxiety F41.9 Hx of breast cancer Z85.3 Multiple myeloma C90.00 Additional Codes ROCK-7 Assessment Billing - ROCK-7 Assessment Tool: ROCK-7 Assessment 36508 ([id number]) Assessment & Plan Assessment & Plan (1) Urinary incontinence: Code(s): R32 - Unspecified urinary incontinence Category: Medical Plan: Chronic urinary incontinence patient will be referred to urogynecology (2) Neuropathy: Comment: LLE after surgery for venous insufficiency Code(s): G62.9 - Polyneuropathy, unspecified Category: Medical Plan: Controlled on gabapentin (3) Anxiety: Code(s): F41.9 - Anxiety disorder, unspecified Category: Medical Plan: Controlled on duloxetine (4) Hx of breast cancer: Comment: 1999, s/p lumpectomy Code(s): Z85.3 - Personal history of malignant neoplasm of breast Category: Medical Plan: Follow-up with oncology (5) Multiple myeloma: Comment: [facility] Hematology, dxd 2020, in remission 01/28 on Ninlaro and Prolia q 3 months Code(s): C90.00 - Multiple myeloma not having achieved remission Category: Medical Plan: In remission follow-up with [facility] ematology Orders: Referrals Urogynecology Referral R32 - Unspecified urinary incontinence
== END 2024-07-14 13:01 | disposition home or self-care (01) ==
LOC: HO.HMCC 10:49
PROVIDERS: PCP Internal Medicine; Visit Provider Internal Medicine
DX: R32 Unspecified urinary incontinence (principal); C90.00 Multiple myeloma not having achieved remission; G62.9 Polyneuropathy, unspecified; F41.9 Anxiety disorder, unspecified; Z85.3 Personal history of malignant neoplasm of breast

== ENCOUNTER → 2024-07-14 10:48 | Outpatient (BNVA) | payer MEDICARE, OTHER, SELFPAY | PROVIDERS: PCP Internal Medicine; Visit Provider Internal Medicine | DX: R32 Unspecified urinary incontinence (principal); G62.9 Polyneuropathy, unspecified; F41.9 Anxiety disorder, unspecified; C90.00 Multiple myeloma not having achieved remission; Z85.3 Personal history of malignant neoplasm of breast | CPT/HCPCS: 96127; 99212 ==

== ENCOUNTER 2024-08-18 13:46 | Outpatient (AMB) | payer MEDICARE, OTHER, SELFPAY ==
--- NOTE | 2024-08-18 13:55 | MHC.PC.OV ---
Vital Signs 08/18/24 13:58 Height 5 ft 5 in Weight 150 lb BMI 25.0 BP 124/80 Blood Pressure Location Lt brachial Position Sitting Pulse 88 Pulse Source Pulse Oximeter Pulse Oximetry (%) 96 Oxygen Delivery Method Room Air Intake Visit Reasons: HDF Intake Note: Pt is here today for Hospital follow up visit. Allergies No Known Allergies Allergy (Verified 08/18/24 13:58) Tobacco use date assessed: 07/14/24 Dental Screening Dental Screen Date: 01/22/24 HPI HDF HPI Details Pt presents for f/u after right knee total arthroplasty 4 weeks ago. Patient has been getting home physical therapy and slowly improving. She complains of worsening anxiety since the surgery. Patient used to see a counselor who retired recently. She denies depression or suicide ideation. Patient has been taking duloxetine trazodone and gabapentin. She complains of chronic right shoulder pain worse since she has been using walker. Hypertension is controlled on Lisinopril. 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 Osteoarthritis of right hip Personal history of COVID-19 Pain Slow to wake up after anesthesia Achalasia of esophagus Otitis media of right ear Cataract RLS (restless legs syndrome) Insomnia Anxiety Hx of breast cancer Post-nasal drip Multiple myeloma Ankle fracture, left GERD (gastroesophageal reflux disease) Hypertension Surgical History History of esophagogastroduodenoscopy (EGD) History of right hip replacement (09/11/23) Hx of bilateral cataract extraction History of lumpectomy of right breast History of History of surgery on left wrist History of colonoscopy H/O left knee surgery Status post ORIF of fracture of ankle (~2020) Family History Father Lung cancer Mother Diabetes Hypertension Heart attack Other Mental health disorder Social History Household Members: None Household Members Other:: , 2 sons, Housing: House Are you a primary critical care clinical nurse specialist to a significant other at home: No Do you presently have visiting nurse or other home services: No Comment: pressure Patient Tobacco Use Status: Former Tobacco user Tobacco use type: Cigarette Years Smoked: 2 e-Cigarette/Vaping Use: Never Used Second Hand Smoke Exposure: No service: No Current occupational status: retired Cognitive needs: No Hearing needs: No Vision needs: Yes Questionnaire Thrive Questionnaire Date Thrive assessed: 07/07/24 I am a: Patient What is your living situation today?: I have a steady place to live Within the past 12 months, did the food you bought not last and you didn't have the money to get more?: Never true Within the past 12 months, did you worry whether your food would run out before you got money to buy more?: Never true Do you have trouble paying for medicines?: No Do you have trouble getting transportation to medical appointments?: No Do you have trouble paying your heating and electricity bill?: No Do you have trouble taking care of your child, family member or friend?: No Do you have trouble with day-to-day activities such as bathing, preparing meals, shopping, managing finances, etc.?: No Are you currently unemployed and looking for a job?: No Are you interested in more education?: No Please select the resources that you would like help with: None Currently or been in a relationship where the following occur: No concerns reported THRIVE Score: 0 ROCK-7 AMB Questionnaire ROCK-7 Date ROCK - 7 assessed: 07/14/24 Source: Developed by Drs. Talha Steve, Halina Pena, Levar Earl and colleagues, with an educational ramón from [employer]. Review of Systems Const All systems reviewed & are unremarkable except as noted in HPI and below ENT Reports no additional complaints Card Reports no additional complaints Resp Reports no additional complaints GI Reports no additional complaints Reports no additional complaints Physical exam (Primary Care) Vital Signs: Last Vital Signs Pulse 88 08/18/24 13:58 BP 124/80 08/18/24 13:58 Pulse Ox 96 08/18/24 13:58 Oxygen Delivery Method Room Air 08/18/24 13:58 BMI result Body Mass Index 25.0 Tobacco/Smoking Status: Tobacco use Status Tobacco use date assessed 07/14/24 08/18/24 13:55 Patient Tobacco Use Status Former Tobacco user 08/18/24 13:55 Tobacco use type Cigarette 08/18/24 13:55 e-Cigarette/Vaping Use Never Used 08/18/24 13:55 Thrive Assessment: Date of Thrive Assessment Date Thrive assessed 07/07/24 08/18/24 13:55 Currently or been in a relationship where the following occur: No concerns reported Const General: no acute distress Eyes General: appearance normal, both eyes and all related structures Resp Effort & Inspection: normal respiratory effort Auscultation: clear to auscultation bilaterally Cardio Rhythm: regular rhythm Heart sounds: S1 normal heart sound present and S2 normal heart sound present GI Inspection: Yes normal to inspection Palpation (GI): Soft to palpation Percussion: Yes normal to percussion Auscultation: normal bowel sounds Extrem Other: Right knee with slight soft tissue swelling erythema no warmth decreased range of motion Coding Level of Care Code Est Pt Level 4 (82420) Diagnoses History of arthroplasty of right knee Z96.651 Anxiety F41.9 Hypertension I10 Assessment & Plan Assessment & Plan (1) History of arthroplasty of right knee: Comment: 07/21/2024 Code(s): Z96.651 - Presence of right artificial knee joint Category: Surgical Plan: Continue physical therapy and follow-up with the orthopedic surgeon (2) Anxiety: Code(s): F41.9 - Anxiety disorder, unspecified Category: Medical Plan: Continue current medications and referred to counseling (3) Hypertension: Code(s): I10 - Essential (primary) hypertension Category: Medical Plan: Continue lisinopril
[2024-08-18 13:58] VITALS: BP 124/80; PULSE 88; O2SAT 96; BMI 25.0
== END 2024-08-18 14:48 | disposition home or self-care (01) ==
PROVIDERS: PCP Internal Medicine; Visit Provider Internal Medicine
DX: Z96.651 Presence of right artificial knee joint (principal); F41.9 Anxiety disorder, unspecified; I10 Essential (primary) hypertension

== ENCOUNTER → 2024-08-18 13:46 | Outpatient (BNVA) | payer MEDICARE, OTHER, SELFPAY | PROVIDERS: PCP Internal Medicine; Visit Provider Internal Medicine | DX: F41.9 Anxiety disorder, unspecified (principal); I10 Essential (primary) hypertension; Z96.651 Presence of right artificial knee joint | CPT/HCPCS: 99212 ==

== ENCOUNTER 2024-11-02 13:00 | Outpatient (RCR) | payer MEDICARE, OTHER, SELFPAY | END 2024-11-02 13:50 | disposition home or self-care (01) | LOC: HO.PTCHIC 13:00 | PROVIDERS: PCP Internal Medicine; Visit Provider Specialist | DX: M17.11 Unilateral primary osteoarthritis, right knee (principal); Z96.651 Presence of right artificial knee joint | CPT/HCPCS: 97110; 97140; 97162; 97530 ==

== ENCOUNTER 2024-11-23 13:56 | Outpatient (AMB) | payer MEDICARE, OTHER, SELFPAY ==
[2024-11-23 13:57] VITALS: BP 114/72; PULSE 92; RESP 18; TEMP 36.8; O2SAT 95; BMI 25.6
--- NOTE | 2024-11-23 13:57 | A.OFFPC_ITS ---
Vital Signs 11/23/24 13:57 Height 5 ft 5 in Weight 154 lb BMI 25.6 BP 114/72 Blood Pressure Location Lt brachial Position Sitting Respiration 18 Pulse 92 Pulse Source Pulse Oximeter Temp 98.3 F Temp Source Oral Pulse Oximetry (%) 95 Oxygen Delivery Method Room Air Intake Visit Reasons: ED-Discharge f/u Intake Note: Pt is here today for Hospital follow up visit. Allergies No Known Allergies Allergy (Verified 11/23/24 13:58) Medication List - Last Reconciled 11/23/24 by Chen Pop MD acetaminophen 650 mg (2 x 325 mg) PO Q6H PRN 30 days amoxicillin 2,000 mg (4 x 500 mg) PO ONCE 1 day aspirin 81 mg PO DAILY bisacodyl (Dulcolax (bisacodyl)) 10 mg (2 x 5 mg) PO BEDTIME calcium acetate calcium 1200 mg vitamin d3 1000 units cane As directed cyclobenzaprine 10 mg PO TID PRN docusate sodium (Stool Softener) 250 mg PO BID docusate sodium 100 mg PO BID dorzolamide-timolol 22.3-6.8 mg/mL ophthalmic (eye) duloxetine 60 mg PO DAILY fluticasone propionate 50 mcg/actuation 1 spray intranasal DAILY gabapentin 600 mg PO BID ixazomib (Ninlaro) mg PO lidocaine HCl 2% (Lidocaine Viscous) PO lisinopril 2.5 mg PO DAILY montelukast (Singulair) 10 mg PO BEDTIME oxycodone-acetaminophen 5-325 mg 1 tab PO Q4H PRN pantoprazole 40 mg PO DAILY [Powerlift reclinder slim width and depth ] [probiotics 100mg orally; ] prochlorperazine maleate 10 mg PO DAILY PRN [Raised toilet seat duration: lifetime] ropinirole 6 mg (3 x 2 mg) PO BEDTIME sennosides (senna) 17.2 mg PO BID [SHOWER CHAIR As directed] trazodone 1-2 tabl orally bedtime; valacyclovir 1,000 mg PO TID walker Folding Front wheeled walker Tobacco use date assessed: 11/23/24 Last assessed Fall Risk: 11/23/24 Dental Screening Dental Screen Date: 11/23/24 HPI ED-Discharge f/u HPI Details Patient presents for the follow-up of ER visit for constipation while on oxycodone for pain control for left knee replacement surgery. She has been taking stool softener and senna but also started taking Dulcolax and reports improvement if her bowel movements. Patient denies abdominal pain hematochezia. Patient will be starting home physical therapy. She reports feeling anxious and is planning to set up an appointment with a counselor. 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 Osteoarthritis of right hip Personal history of COVID-19 Pain Slow to wake up after anesthesia Achalasia of esophagus Otitis media of right ear Cataract RLS (restless legs syndrome) Insomnia Anxiety Hx of breast cancer Post-nasal drip Multiple myeloma Ankle fracture, left GERD (gastroesophageal reflux disease) Hypertension Surgical History (Updated 11/23/24 @ 15:27 by Chen Pop MD) History of esophagogastroduodenoscopy (EGD) History of right hip replacement (09/11/23) Hx of bilateral cataract extraction History of lumpectomy of right breast History of History of surgery on left wrist History of colonoscopy H/O left knee surgery Status post ORIF of fracture of ankle (~2020) Family History Father Lung cancer Mother Diabetes Hypertension Heart attack Other Mental health disorder Social History Household Members: None Household Members Other:: , 2 sons, Housing: House Are you a primary career services representative to a significant other at home: No Do you presently have visiting nurse or other home services: No Comment: pressure Patient Tobacco Use Status: Former Tobacco user Tobacco use type: Cigarette Years Smoked: 2 e-Cigarette/Vaping Use: Never Used Second Hand Smoke Exposure: No service: No Current occupational status: retired Cognitive needs: No Hearing needs: No Vision needs: Yes Questionnaire PHQ-9 Over the last 2 weeks, how often have you been bothered by any of the following problems? 1. Little interest or pleasure in doing things: not at all 2. Feeling down, depressed, or hopeless: not at all 3. Trouble falling or staying asleep, or sleeping too much: not at all 4. Feeling tired or having little energy: not at all 5. Poor appetite or overeating: several days 6. Feeling bad about yourself - or that you are a failure or have let yourself or your family down: not at all 7. Trouble concentrating on things, such as reading the newspaper or watching television: not at all 8. Moving or speaking so slowly that other people could have noticed. Or the opposite - being so fidgety or restless that you have been moving around a lot more than usual: several days 9. Thoughts that you would be better off or of hurting yourself in some way: not at all Total score: 2 Source: Developed by Drs. Talha Steve, Halina Pena, Levar Earl and colleagues, with an educational ramón from [employer]. Thrive Questionnaire Date Thrive assessed: 07/07/24 I am a: Patient What is your living situation today?: I have a steady place to live Within the past 12 months, did the food you bought not last and you didn't have the money to get more?: Often true Within the past 12 months, did you worry whether your food would run out before you got money to buy more?: Often true Do you have trouble paying for medicines?: No Do you have trouble getting transportation to medical appointments?: No Do you have trouble paying your heating and electricity bill?: No Do you have trouble taking care of your child, family member or friend?: No Do you have trouble with day-to-day activities such as bathing, preparing meals, shopping, managing finances, etc.?: Yes Are you currently unemployed and looking for a job?: No Are you interested in more education?: No Please select the resources that you would like help with: None Currently or been in a relationship where the following occur: No concerns reported THRIVE Score: 2 AUDIT C Alcohol Use Questionnaire (AUDIT-C) 1. How often do you have a drink containing alcohol?: Never Total Score: 0 ROCK-7 AMB Questionnaire ROCK-7 Date ROCK - 7 assessed: 07/14/24 Feeling nervous, anxious, or on edge: 1 = Several days Not being able to stop or control worryin = Several days Worrying too much about different things: 1 = Several days Trouble relaxin = Several days Being so restless that it is hard to sit still: 0 = Not at all Becoming easily annoyed or irritable: 1 = Several days Feeling afraid as if something awful might happen: 0 = Not at all Total ROCK-7 score (0-4 normal; 5-9 mild; 10-14 moderate; 15-21 severe): 5 Source: Developed by Drs. Talha Steve, Halina Pena, Levar Earl and colleagues, with an educational ramón from [employer]. Review of Systems Const All systems reviewed & are unremarkable except as noted in HPI and below ENT Reports no additional complaints Card Reports no additional complaints Resp Reports no additional complaints GI Reports no additional complaints Reports no additional complaints Physical exam (Primary Care) Vital Signs: Last Vital Signs Temp 98.3 F 11/23/24 13:57 Pulse 92 11/23/24 13:57 Resp 18 11/23/24 13:57 BP 114/72 11/23/24 13:57 Pulse Ox 95 11/23/24 13:57 Oxygen Delivery Method Room Air 11/23/24 13:57 BMI result Body Mass Index 25.6 Tobacco/Smoking Status: Tobacco use Status Tobacco use date assessed 11/23/24 11/23/24 13:59 Patient Tobacco Use Status Former Tobacco user 11/23/24 13:57 Tobacco use type Cigarette 11/23/24 13:57 e-Cigarette/Vaping Use Never Used 11/23/24 13:57 PHQ-9: PHQ-9 Score PHQ-9: Total score 2 11/23/24 13:57 Thrive Assessment: Date of Thrive Assessment Date Thrive assessed 07/07/24 11/23/24 13:57 Currently or been in a relationship where the following occur: No concerns reported Const General: no acute distress HENMT Head: Yes normal to inspection Neck Neck: Yes supple Resp Effort & Inspection: normal respiratory effort Auscultation: clear to auscultation bilaterally Cardio Rhythm: regular rhythm Heart sounds: S1 normal heart sound present and S2 normal heart sound present GI Inspection: Yes normal to inspection Palpation (GI): Soft to palpation Percussion: Yes normal to percussion Auscultation: normal bowel sounds Coding Level of Care Code Est Pt Level 4 (60992) Diagnoses History of arthroplasty of left knee Z96.652 Constipation K59.00 Anxiety F41.9 Assessment & Plan Assessment & Plan (1) History of arthroplasty of left knee: Code(s): Z96.652 - Presence of left artificial knee joint Category: Surgical Plan: Follow-up with the orthopedic surgeon continue home physical therapy and pain management as per surgery (2) Constipation: Code(s): K59.00 - Constipation, unspecified Category: Medical Plan: Bowel management discussed with the patient. (3) Anxiety: Comment: Controlled on Duloxetine Code(s): F41.9 - Anxiety disorder, unspecified Category: Medical Plan: Continue current medications she will schedule an appointment with a new counselor
--- OUTSIDE RECORDS SUMMARY | 2024-11-23 16:24 | XMS_ITS | Encounter Summary ---
Author Organization [facility] Address [address] [place] [address] Care Team Providers Care Senior Technical Support Analyst Name Role Phone Lorraine Popanna Primary Care Provider [phone] Encounter Details Date Type Department Care Team (Late st Contact Info) Description 10/26/2024 ADOR Message Initial Department [address] [place] [address] Mychart, Generic Provider [place] [address] Questionnaire Submission Social History Tobacco Use Types Packs/Day Years Used Date Smoking Tobacco: Never Smokeless Tobacco: Never Alcohol Use Standard Drinks/Week Comments Yes 0 (1 standard drink = 0.6 oz pur e alcohol) once monthly Hunger Vital Sign Answer Date Recorded Within the past 12 months, y ou worried that your food would run out before you got the money to buy more. Never true 07/20/20 24 Within the past 12 months, t he food you bought just didn't last and you didn't have money to get more. Never true 07/20/2024 Comments No Sex and Gender Information Value Date Recorded Sex Assigned at Female 05/01/2024 11:40 AM EDT Legal Sex Female 5:08 AM EDT Gender Identity Female 05/01/2024 11:40 AM EDT Sexual Orientation Straight 07/13/2024 11 :09 AM EST documented as of this encounter Plan of Treatment Upcoming Encounters Date Type Department Care Team (Late st Contact Info) Description 12/03/2024 1:15 PM EDT Follow-Up CC [facility] AT [address] [facility] [address] [place], [place] [id number] Saqib Santos J.P., MD [address] [place] [address] documented as of this encounter Visit Diagnoses Not on filedocumented in this encounter Care Teams Senior Technical Support Analyst Relationship Specialty Start Date End Date Donn Chen [address] [place] [id number] PCP - General Internal Medicine 05/01/24 documented as of this encounter
--- OUTSIDE RECORDS SUMMARY | 2024-11-23 16:24 | XMS_ITS | Encounter Summary ---
Author Organization [facility] Address [address] [place] [address] Care Team Providers Care Fruit Grader Name Role Phone Judy Mack MD Primary Care Provider Encounter Details Date Type Department Care Team (Late st Contact Info) Description 07/23/2024 Lab Requisition [facility] - Main Lab [address] [facility] [place] [address] Brian Avaols MD [address] [place] [address] Pain in right knee Social History Tobacco Use Types Packs/Day Years Used Date Smoking Tobacco: Never Assessed Comments Unknown Sex and Gender Information Value Date Recorded Sex Assigned at Not on file Legal Sex Female 9:45 PM EST Gender Identity Not on file Sexual Orientation Not on file documented as of this encounter Plan of Treatment Not on file documented as of this encounter Procedures Procedure Name Priority Date/Time Associated Diagnosis Comments CBC WITH AUTO DIFFERENTIAL Routine 07/23/2024 7:18 AM EST Pain in right knee CBC AND DIFFERENTIAL Routine 07/23/2024 7:18 AM EST Pain in right knee MAGNESIUM Routine 07/23/2024 7:18 AM EST Pain in right knee COMPREHENSIVE METABOLIC PANEL Routine 07/23/2024 7:18 AM EST Pain in right knee documented in this encounter Results * (ABNORMAL) CBC auto differential (07/23/2024 7:18 AM EST) [facility] WBC 7.5 4.8 - 10.8 K/mcL LAB HEMETOLOGY METHOD 07/23/2024 9:03 AM [facility] RBC 3.40(L) 3.80 - 4.80 M/mcL LAB HEMETOLOGY METHOD 07/23/2024 9:03 AM [facility] Hemoglobin 11.0(L) 11.5 - 16.0 g/dL LAB HEMETOLOGY METHOD 07/23/2024 9:03 AM [facility] Hematocrit 34.0(L) 35.0 - 47.0 % LAB HEMETOLOGY METHOD 07/23/2024 9:03 AM [facility] MCV 99.4(H) 79.0 - 98.0 FL LAB HEMETOLOGY METHOD 07/23/2024 9:03 AM [facility] MCH 32.2(H) 27.0 - 32.0 pcg LAB HEMETOLOGY METHOD 07/23/2024 9:03 AM [facility] MCHC 32.4 32.0 - 37.0 g/dL LAB HEMETOLOGY METHOD 07/23/2024 9:03 AM [facility] RDW 13.6 11.0 - 15.0 % LAB HEMETOLOGY METHOD 07/23/2024 9:03 AM [facility] Platelets 185 130 - 400 K/mcL LAB HEMETOLOGY METHOD 07/23/2024 9:03 AM [facility] MPV 10.4 7.0 - 11.0 FL LAB HEMETOLOGY METHOD 07/23/2024 9:03 AM [facility] NRBC 0.0 <1.0 % LAB HEMETOLOGY METHOD 07/23/2024 9:03 AM [facility] NRBC Absolute 0.00 <0.10 K/mcL LAB HEMETOLOGY METHOD 07/23/2024 9:03 AM [facility] Neutrophils Relative 76.7 % LAB HEMETOLOGY METHOD 07/23/2024 9:03 AM [facility] Lymphocytes Relative 10.0 % LAB HEMETOLOGY METHOD 07/23/2024 9:03 AM [facility] Monocytes Relative 11.9 % LAB HEMETOLOGY METHOD 07/23/2024 9:03 AM [facility] Eosinophils Relative 0.4 % LAB HEMETOLOGY METHOD 07/23/2024 9:03 AM [facility] Basophils Relative 0.3 % LAB HEMETOLOGY METHOD 07/23/2024 9:03 AM [facility] Immature Granulocytes Relative 0.7 % LAB HEMETOLOGY METHOD 07/23/2024 9:03 AM [facility] Neutrophils Absolute 5.76 1.50 - 7.00 K/mcL LAB HEMETOLOGY METHOD 07/23/2024 9:03 AM [facility] Lymphocytes Absolute 0.75(L) 1.00 - 5.00 K/mcL LAB HEMETOLOGY METHOD 07/23/2024 9:03 AM [facility] Monocytes Absolute 0.89 0.20 - 1.00 K/mcL LAB HEMETOLOGY METHOD 07/23/2024 9:03 AM [facility] Eosinophils Absolute 0.03 0.00 - 0.50 K/mcL LAB HEMETOLOGY METHOD 07/23/2024 9:03 AM [facility] Basophils Absolute 0.02 0.00 - 0.20 K/mcL LAB HEMETOLOGY METHOD 07/23/2024 9:03 AM [facility] Immature Granulocytes Absolute 0.05(H) 0.00 - 0.03 K/mcL LAB HEMETOLOGY METHOD 07/23/2024 9:03 AM [facility] Blood Venous blood specimen / Unknown Venipuncture / Unknown 07/23/2024 7:18 AM EST 07/23/2024 8:08 AM EST Brian Avalos MD LAB BLOOD ORDERABLES Final Res ult [facility] [address] [place] [address], [place] [phone] * Magnesium (07/23/2024 7:18 AM EST) Pathologist [facility] Magnesium 2.1 1.9 - 2.6 mg/dL LAB CHEMISTRY METHOD 07/23/2024 9:38 AM EST [facility] Blood Venous blood specimen / Unknown Venipuncture / Unknown 07/23/2024 7:18 AM EST 07/23/2024 8:08 AM EST Brian Avalos MD LAB BLOOD ORDERABLES Final Res ult Performing Organization Address City/[facility]/ZIP Co de Phone Number [facility] [address] [place] [address], [place] [phone] * (ABNORMAL) Comprehensive metabolic panel (07/23/2024 7:18 AM EST) [facility] Sodium 136 133 - 145 mmol/L LAB CHEMISTRY METHOD 07/23/2024 9:38 AM [facility] Potassium 4.3 3.5 - 5.5 mmol/L LAB CHEMISTRY METHOD 07/23/2024 9:38 AM [facility] Chloride 103 96 - 110 mmol/L LAB CHEMISTRY METHOD 07/23/2024 9:38 AM EST [facility] CO2 28 21 - 32 mmol/L LAB CHEMISTRY METHOD 07/23/2024 9:38 AM [facility] Anion Gap 5 3 - 11 LAB CHEMISTRY METHOD 07/23/2024 9:38 AM EST [facility] Glucose 92 70 - 100 mg/dL LAB CHEMISTRY METHOD 07/23/2024 9:38 AM [facility] BUN 14 5 - 25 mg/dL LAB CHEMISTRY METHOD 07/23/2024 9:38 AM [facility] Creatinine 0.96 0.50 - 1.10 mg/dL LAB CHEMISTRY METHOD 07/23/2024 9:38 AM [facility] eGFR 61 >=60 mL/min/1. 73m2 LAB CHEMISTRY METHOD 07/23/2024 9:38 AM [facility] Comment:Calculation based on the??Chronic Kidney Disease Epidemiology Collaboration (CKD-EPI) equation refit??without adjustment for race. BUN/Creatinine Ratio 14.6 LAB CHEMISTRY METHOD 07/23/2024 9:38 AM [facility] Calcium 7.8(L) 8.5 - 10.5 mg/dL LAB CHEMISTRY METHOD 07/23/2024 9:38 AM [facility] AST (SGOT) 11 10 - 42 unit/L LAB CHEMISTRY METHOD 07/23/2024 9:38 AM [facility] ALT (SGPT) 11 10 - 60 unit/L LAB CHEMISTRY METHOD 07/23/2024 9:38 AM [facility] Alkaline Phosphatase 49 42 - 121 unit/L LAB CHEMISTRY METHOD 07/23/2024 9:38 AM [facility] Total Protein 5.3(L) 6.0 - 8.0 g/dL LAB CHEMISTRY METHOD 07/23/2024 9:38 AM [facility] Albumin 2.5(L) 3.2 - 5.0 g/dL LAB CHEMISTRY METHOD 07/23/2024 9:38 AM [facility] Total Bilirubin 0.4 0.0 - 1.4 mg/dL LAB CHEMISTRY METHOD 07/23/2024 9:38 AM [facility] Blood Venous blood specimen / Unknown Venipuncture / Unknown 07/23/2024 7:18 AM EST 07/23/2024 8:08 AM EST us Brian Avalos MD LAB BLOOD ORDERABLES Final Res ult [facility] [address] [place] [address], [place] [phone] documented in this encounter Visit Diagnoses Diagnosis Pain in right knee documented in this encounter Care Teams Fruit Grader Relationship Specialty Start Date End Date Judy Mack MD [address] [facility] [address] [place] [address] PCP - General Internal Medicine 06/25/17 documented as of this encounter
--- OUTSIDE RECORDS SUMMARY | 2024-11-23 16:24 | XMS_ITS | Encounter Summary ---
Author Organization [facility] Address [address] [place] [address] Care Team Providers Care College Football Coach Name Role Phone Judy Mack MD Primary Care Provider [phone] Encounter Details Date Type Department Care Team (Late st Contact Info) Description 07/29/2024 Lab Requisition [facility] - Main Lab [address] [place] [phone] Brian Avalos MD [address] [address] Other specified arthritis, unspecified site Social History Tobacco Use Types Packs/Day Years [...] Procedure Name Priority Date/Time Associated Diagnosis Comments COMPLETE BLOOD COUNT Routine 07/29/2024 5:32 AM EST Other specified arthritis, unspecified site COMPREHENSIVE METABOLIC PANEL Routine 07/29/2024 5:32 AM EST Other specified arthritis, unspecified site documented in this encounter Results * (ABNORMAL) Complete blood count (07/29/2024 5:32 AM EST) WBC 5.3 4.8 - 10.8 K/[facility] LAB HEMETOLOGY METHOD 07/29/2024 9:24 AM [facility] LAB RBC 2.90(L) 3.80 - 4.80 M/mcL LAB HEMETOLOGY METHOD 07/29/2024 9:24 AM [facility] LAB Hemoglobin 9.2(L) 11.5 - 16.0 g/dL LAB HEMETOLOGY METHOD 07/29/2024 9:24 AM [facility] LAB Hematocrit 29.5(L) 35.0 - 47.0 % LAB HEMETOLOGY METHOD 07/29/2024 9:24 AM [facility] LAB MCV 100.7(H) 79.0 - 98.0 FL LAB HEMETOLOGY METHOD 07/29/2024 9:24 AM [facility] LAB MCH 31.4 27.0 - 32.0 pcg LAB HEMETOLOGY METHOD 07/29/2024 9:24 AM [facility] LAB MCHC 31.2(L) 32.0 - 37.0 g/dL LAB HEMETOLOGY METHOD 07/29/2024 9:24 AM [facility] LAB RDW 14.3 11.0 - 15.0 % LAB HEMETOLOGY METHOD 07/29/2024 9:24 AM [facility] LAB Platelets 226 130 - 400 K/mcL LAB HEMETOLOGY METHOD 07/29/2024 9:24 AM [facility] LAB MPV 10.7 7.0 - 11.0 FL LAB HEMETOLOGY METHOD 07/29/2024 9:24 AM [facility] LAB NRBC 0.0 <1.0 % LAB HEMETOLOGY METHOD 07/29/2024 9:24 AM [facility] LAB NRBC Absolute 0.00 <0.10 K/mcL LAB HEMETOLOGY METHOD 07/29/2024 9:24 AM [facility] LAB Blood Venous blood specimen / Unknown Venipuncture / Unknown 07/29/2024 5:32 AM EST 07/29/2024 8:28 AM EST us Brian Avalos MD LAB BLOOD ORDERABLES Final Res ult [facility] LAB [address] [place] [address], [place] [phone] * (ABNORMAL) Comprehensive metabolic panel (07/29/2024 5:32 AM EST) Sodium 141 133 - 145 mmol/L LAB CHEMISTRY METHOD 07/29/2024 10:01 AM [facility] LAB Potassium 4.2 3.5 - 5.5 mmol/L LAB CHEMISTRY METHOD 07/29/2024 10:01 AM [facility] LAB Chloride 104 96 - 110 mmol/L LAB CHEMISTRY METHOD 07/29/2024 10:01 AM [facility] LAB CO2 31 21 - 32 mmol/L LAB CHEMISTRY METHOD 07/29/2024 10:01 AM [facility] LAB Anion Gap 6 3 - 11 LAB CHEMISTRY METHOD 07/29/2024 10:01 AM [facility] LAB Glucose 91 70 - 100 mg/dL LAB CHEMISTRY METHOD 07/29/2024 10:01 AM [facility] LAB BUN 22 5 - 25 mg/dL LAB CHEMISTRY METHOD 07/29/2024 10:01 AM [facility] LAB Creatinine 0.87 0.50 - 1.10 mg/dL LAB CHEMISTRY METHOD 07/29/2024 10:01 AM [facility] LAB eGFR 69 >=60 mL/min/1. 73m2 LAB CHEMISTRY METHOD 07/29/2024 10:01 AM [facility] LAB Comment:Calculation based on the??Chronic Kidney Disease Epidemiology Collaboration (CKD-EPI) equation refit??without adjustment for race. BUN/Creatinine Ratio 25.3 LAB CHEMISTRY METHOD 07/29/2024 10:01 AM [facility] LAB Calcium 8.8 8.5 - 10.5 mg/dL LAB CHEMISTRY METHOD 07/29/2024 10:01 AM [facility] LAB AST (SGOT) 18 10 - 42 unit/L LAB CHEMISTRY METHOD 07/29/2024 10:01 AM [facility] LAB ALT (SGPT) 14 10 - 60 unit/L LAB CHEMISTRY METHOD 07/29/2024 10:01 AM [facility] LAB Alkaline Phosphatase 59 42 - 121 unit/L LAB CHEMISTRY METHOD 07/29/2024 10:01 AM [facility] LAB Total Protein 5.2(L) 6.0 - 8.0 g/dL LAB CHEMISTRY METHOD 07/29/2024 10:01 AM [facility] LAB Albumin 2.3(L) 3.2 - 5.0 g/dL LAB CHEMISTRY METHOD 07/29/2024 10:01 AM [facility] LAB Total Bilirubin 0.5 0.0 - 1.4 mg/dL LAB CHEMISTRY METHOD 07/29/2024 10:01 AM [facility] LAB Blood Venous blood specimen / Unknown Venipuncture / Unknown 07/29/2024 5:32 AM EST 07/29/2024 8:28 AM EST us Brian Avalos MD LAB BLOOD ORDERABLES Final Res ult [facility] LAB [address] [place] [address], documented in this encounter Visit Diagnoses Diagnosis Other specified arthritis, unspecified site documented in this encounter Care Teams College Football Coach Relationship Specialty Start Date End Date Judy Mack MD [address] [facility] [address] [place] [address] PCP - General Internal Medicine 06/25/17 documented as of this encounter
--- OUTSIDE RECORDS SUMMARY | 2024-11-23 16:24 | XMS_ITS | Encounter Summary ---
Author Organization [facility] Address [address] [place] [address] Care Team Providers Care Tire Vulcanizer Name Role Phone Chen Pop Primary Care Provider [phone] Encounter Details Date Type Department Care Team (Late st Contact Info) Description 07/06/2024 myChart Message Initial Department [address] [place] [address] Mychart, Generic Provider [address] [place] [address] Questionnaire Submission Social History Tobacco Use Types Packs/Day Years Used Date Smoking Tobacco: Never Smokeless Tobacco: Never Alcohol Use Standard Drinks/Week Comments Yes 0 (1 standard drink = 0.6 oz pur e alcohol) once monthly Comments Unknown Sex and Gender Information Value [...] PM EDT Follow-Up CC [facility] AT [address] [place] [address] Saqib Santos J.P., MD [address] [place] [address] documented as of this encounter Visit Diagnoses Not on filedocumented in this encounter Care Teams Tire Vulcanizer Relationship Specialty Start Date End Date Chen Pop [address] [place] [address] PCP - General Internal Medicine 05/01/24 documented as of this encounter
--- OUTSIDE RECORDS SUMMARY | 2024-11-23 16:24 | XMS_ITS | Encounter Summary ---
Author Organization [facility] Address [address] [place] [address] Care Team Providers Care Blood Bank Specialist Name Role Phone Chen Pop Primary Care Provider [phone] Encounter Details Date Type Department Care Team (Late st Contact Info) Description 07/06/2024 myChart Message Initial Department [address] [place] [address] Mychart, Generic Provider [address] [place] [address] Questionnaire Submission Social History Tobacco Use [...] PM EDT Follow-Up CC [facility] AT [address] [place] [address] Saqib Santos J.P., MD [address] [place] [address] documented as of this encounter Visit Diagnoses Not on filedocumented in this encounter Care Teams Blood Bank Specialist Relationship Specialty Start Date End Date hCen Pop [address] [place] [address] PCP - General Internal Medicine 05/01/24 documented as of this encounter
--- OUTSIDE RECORDS SUMMARY | 2024-11-23 16:24 | XMS_ITS | Encounter Summary ---
Author Organization [facility] Address [address] [place] [address] Care Team Providers Care Caterer'S Aide Name Role Phone Chen Pop Primary Care Provider [phone] Encounter Details Date Type Department Care Team (Late st Contact Info) Description 07/06/2024 myChart Message Initial Department [address] [place] [address] Mychart, Generic Provider [address] [place] [address] Questionnaire Submission Social History Tobacco Use [...] PM EDT Follow-Up CC [facility] AT [address] [place] [address] Saqib Santos J.P., MD [address] [place] [address] documented as of this encounter Visit Diagnoses Not on filedocumented in this encounter Care Teams Caterer'S Aide Relationship Specialty Start Date End Date Chen Pop [address] [place] [address] PCP - General Internal Medicine 05/01/24 documented as of this encounter
--- OUTSIDE RECORDS SUMMARY | 2024-11-23 16:24 | XMS_ITS | Encounter Summary ---
Author Organization [facility] Address [address] [place] [address] Care Team Providers Care Snag Grinder Name Role Phone Judy Mack MD Primary Care Provider Encounter Details Date Type Department Care Team (Late st Contact Info) Description 07/31/2024 Lab Requisition [facility] - Main Lab [address] [facility] [place] [address] Brian Avalos MD [address] [place] [address] Encounter for other general examination Social History Tobacco Use Types Packs/Day Years [...] Diagnosis Comments CBC WITH AUTO DIFFERENTIAL Routine 07/31/2024 4:39 AM EST Encounter for other general examination CBC AND DIFFERENTIAL Routine 07/31/2024 4:39 AM EST Encounter for other general examination BASIC METABOLIC PANEL Routine 07/31/2024 4:39 AM EST Encounter for other general examination documented in this encounter Results * (ABNORMAL) CBC auto differential (07/31/2024 4:39 AM EST) WBC 4.7(L) 4.8 - 10.8 K/[facility] LAB HEMETOLOGY METHOD 07/31/2024 8:37 AM [facility] LAB RBC 2.90(L) 3.80 - 4.80 M/[facility] LAB HEMETOLOGY METHOD 07/31/2024 8:37 AM [facility] LAB Hemoglobin 9.0(L) 11.5 - 16.0 g/dL LAB HEMETOLOGY METHOD 07/31/2024 8:37 AM [facility] LAB Hematocrit 29.1(L) 35.0 - 47.0 % LAB HEMETOLOGY METHOD 07/31/2024 8:37 AM [facility] LAB MCV 101.4(H) 79.0 - 98.0 FL LAB HEMETOLOGY METHOD 07/31/2024 8:37 AM [facility] LAB MCH 31.4 27.0 - 32.0 pcg LAB HEMETOLOGY METHOD 07/31/2024 8:37 AM [facility] LAB MCHC 30.9(L) 32.0 - 37.0 g/dL LAB HEMETOLOGY METHOD 07/31/2024 8:37 AM [facility] LAB RDW 14.1 11.0 - 15.0 % LAB HEMETOLOGY METHOD 07/31/2024 8:37 AM [facility] LAB Platelets 299 130 - 400 K/[facility] LAB HEMETOLOGY METHOD 07/31/2024 8:37 AM [facility] LAB MPV 10.4 7.0 - 11.0 FL LAB HEMETOLOGY METHOD 07/31/2024 8:37 AM [facility] LAB NRBC 0.0 <1.0 % LAB HEMETOLOGY METHOD 07/31/2024 8:37 AM [facility] LAB NRBC Absolute 0.00 <0.10 K/[facility] LAB HEMETOLOGY METHOD 07/31/2024 8:37 AM [facility] LAB Neutrophils Relative 59.5 % LAB HEMETOLOGY METHOD 07/31/2024 8:37 AM [facility] LAB Lymphocytes Relative 25.3 % LAB HEMETOLOGY METHOD 07/31/2024 8:37 AM [facility] LAB Monocytes Relative 11.8 % LAB HEMETOLOGY METHOD 07/31/2024 8:37 AM [facility] LAB Eosinophils Relative 1.7 % LAB HEMETOLOGY METHOD 07/31/2024 8:37 AM [facility] LAB Basophils Relative 0.6 % LAB HEMETOLOGY METHOD 07/31/2024 8:37 AM [facility] LAB Immature Granulocytes Relative 1.1 % LAB HEMETOLOGY METHOD 07/31/2024 8:37 AM [facility] LAB Neutrophils Absolute 2.82 1.50 - 7.00 K/mcL LAB HEMETOLOGY METHOD 07/31/2024 8:37 AM [facility] LAB Lymphocytes Absolute 1.20 1.00 - 5.00 K/mcL LAB HEMETOLOGY METHOD 07/31/2024 8:37 AM [facility] LAB Monocytes Absolute 0.56 0.20 - 1.00 K/mcL LAB HEMETOLOGY METHOD 07/31/2024 8:37 AM [facility] LAB Eosinophils Absolute 0.08 0.00 - 0.50 K/mcL LAB HEMETOLOGY METHOD 07/31/2024 8:37 AM [facility] LAB Basophils Absolute 0.03 0.00 - 0.20 K/mcL LAB HEMETOLOGY METHOD 07/31/2024 8:37 AM [facility] LAB Immature Granulocytes Absolute 0.05(H) 0.00 - 0.03 K/mcL LAB HEMETOLOGY METHOD 07/31/2024 8:37 AM [facility] LAB Blood Venous blood specimen / Unknown Venipuncture / Unknown 07/31/2024 4:39 AM EST 07/31/2024 7:14 AM EST us Brian Avalos MD LAB BLOOD ORDERABLES Final Res ult [facility] LAB [address] [place] [address], [place] [phone] * (ABNORMAL) Basic metabolic panel (07/31/2024 4:39 AM EST) Sodium 141 133 - 145 mmol/L LAB CHEMISTRY METHOD 07/31/2024 8:55 AM EST [facility] LAB Potassium 4.4 3.5 - 5.5 mmol/L LAB CHEMISTRY METHOD 07/31/2024 8:55 AM [facility] LAB Chloride 107 96 - 110 mmol/L LAB CHEMISTRY METHOD 07/31/2024 8:55 AM [facility] LAB CO2 30 21 - 32 mmol/L LAB CHEMISTRY METHOD 07/31/2024 8:55 AM [facility] LAB Anion Gap 4 3 - 11 LAB CHEMISTRY METHOD 07/31/2024 8:55 AM [facility] LAB Glucose 82 70 - 100 mg/dL LAB CHEMISTRY METHOD 07/31/2024 8:55 AM [facility] LAB BUN 20 5 - 25 mg/dL LAB CHEMISTRY METHOD 07/31/2024 8:55 AM [facility] LAB Creatinine 0.92 0.50 - 1.10 mg/dL LAB CHEMISTRY METHOD 07/31/2024 8:55 AM [facility] LAB eGFR 64 >=60 mL/min/1. 73m2 LAB CHEMISTRY METHOD 07/31/2024 8:55 AM [facility] LAB Comment:Calculation based on the??Chronic Kidney Disease Epidemiology Collaboration (CKD-EPI) equation refit??without adjustment for race. BUN/Creatinine Ratio 21.7 LAB CHEMISTRY METHOD 07/31/2024 8:55 AM [facility] LAB Calcium 8.4(L) 8.5 - 10.5 mg/dL LAB CHEMISTRY METHOD 07/31/2024 8:55 AM EST [facility] LAB Blood Venous blood specimen / Unknown Venipuncture / Unknown 07/31/2024 4:39 AM EST 07/31/2024 7:14 AM EST us Brian Avalos MD LAB BLOOD ORDERABLES Final Res ult [facility] LAB [address] [place] [address], documented in this encounter Visit Diagnoses Diagnosis Encounter for other general examination documented in this encounter Care Teams Snag Grinder Relationship Specialty Start Date End Date Judy Mack MD [address] [facility] [address] [place] [address] PCP - General Internal Medicine 06/25/17 documented as of this encounter
--- OUTSIDE RECORDS SUMMARY | 2024-11-23 16:24 | XMS_ITS | Encounter Summary ---
Author Organization [facility] Address [address] [place] [address] Care Team Providers Care Midwife Name Role Phone Lorraine Popanna Primary Care Provider [phone] Encounter Details Date Type Department Care Team (Late st Contact Info) Description 10/26/2024 [employer] Message [facility] Surgery [address] [place] [address] [phone] [employer], [facility] Provider [facility] [place] [address] Questionnaire due soon Social History Tobacco Use Types Packs/Day Years [...] PM EDT Follow-Up CC [facility] AT [address] [facility] [address] [place] [address] Saqib Santos J.P., MD [address] [place] [address] documented as of this encounter Visit Diagnoses Not on filedocumented in this encounter Care Teams Midwife Relationship Specialty Start Date End Date Chen Pop [address] [place] [address] PCP - General Internal Medicine 05/01/24 documented as of this encounter
--- OUTSIDE RECORDS SUMMARY | 2024-11-23 16:24 | XMS_ITS | Encounter Summary ---
Author Organization [facility] Address [address] [place] [address] Care Team Providers Care Signal Repairer Name Role Phone Judy Mack MD Primary Care Provider [phone] Encounter Details Date Type Department Care Team (Late st Contact Info) Description 07/23/2024 Lab Requisition [facility] - Main Lab [address] [facility] [place] [phone] Brian Avalos MD [address] [place] [address] Pain in right knee Social History Tobacco Use Types Packs/Day Years Used Date Smoking Tobacco: Never Assessed Comments Unknown Sex and Gender Information Value Date Recorded Sex Assigned at Not on file Legal Sex Female 9:45 PM EST Gender Identity Not on file Sexual Orientation Not on file documented as of this encounter Plan of Treatment Scheduled Orders Name Type Priority Associated Diagnoses Orde r Schedule Comprehensive metabolic panel Lab Routine Pain in right knee Ordered: 07/23/2024 CBC and differential Lab Routine Pain in right knee Ordered: 07/23/2024 documented as of this encounter Visit Diagnoses Diagnosis Pain in right knee documented in this encounter Care Teams Signal Repairer Relationship Specialty Start Date End Date Judy Mack MD [address] [facility] [address] [facility] [address] [place] [phone] PCP - General Internal Medicine 06/25/17 documented as of this encounter
--- OUTSIDE RECORDS SUMMARY | 2024-11-23 16:24 | XMS_ITS | Clinical Summary ---
Author Organization [address] Address [address] [place] [address] Phone Care Team Providers Care Preschool Principal Name Role Phone Judy Mack MD Primary Care Provider Social History Tobacco Use Types Packs/Day Years Used Date Smoking Tobacco: Never Assessed Comments Unknown Sex and Gender Information Value Date Recorded Sex Assigned at Not on file Legal Sex Female 9:45 PM EST Gender Identity Not on file Sexual Orientation Not on file Plan of Treatment Health Maintenance Due Date Last Done Comments COVID-19 Vaccine (3 - Pfizer risk series) 12/22/2020 11/24/2020, 11/03/2020 Cholesterol Screening (Lipid Panel) 08/11/2022 Depression Screening 08/11/2022 Falls Risk Assessment 08/11/2022 Hepatitis C Screening 08/11/2022 Osteoporosis Screening (Bone Density Screening) 08/11/2022 Social Influencers of Health Screening 08/11/2022 Influenza Vaccine (#1) 2024 , 08/09/2022, 07/04/2022, Additional history exists Hypertension/CHF/CAD Annual BMP Blood Test 07/31/2025 07/31/2024, 07/29/2024, 07/23/2024, Additional history exists Pneumococcal Vaccine: 50+ Years (3 of 3 - PCV20 or PCV21) 05/05/2026 05/05/2021, 12/05/2018, 05/23/2011 DTaP,Tdap,and Td Vaccines (5 - Td or Tdap) 12/01/2031 11/30/2021, 03/25/2018, 06/27/2017, Additional history exists Zoster Vaccines Completed 11/30/2021, 09/28/2021 RSV Immunization Patients 60+ Years Old Completed 08/07/2023 HIB Vaccines Aged Out No longer eligi ble based on patient's age to complete this topic HPV Vaccines Aged Out No longer eligi ble based on patient's age to complete this topic Hepatitis A Vaccines Aged Out No long er eligible based on patient's age to complete this topic Hepatitis B Vaccines Aged Out No long er eligible based on patient's age to complete this topic IPV Vaccines Aged Out No longer eligi ble based on patient's age to complete this topic MMR Vaccines Aged Out No longer eligi ble based on patient's age to complete this topic Meningococcal ACWY Vaccine Aged Out N o longer eligible based on patient's age to complete this topic Meningococcal B Vacine Aged Out No lo nger eligible based on patient's age to complete this topic RSV Immunization Patients Under 20 months Aged Out No longer eligible based on patient's age to complete this topic Varicella Vaccines Aged Out No longer eligible based on patient's age to complete this topic Procedures Procedure Name Priority Date/Time Associated Diagnosis Comments BASIC METABOLIC PANEL Routine 07/31/2024 4:39 AM EST Encounter for other general examination from Last 3 Months or Most Recently Relevant to Health Maintenance Results * (ABNORMAL) Basic metabolic panel (07/31/2024 4:39 AM EST) Sodium 141 133 - 145 mmol/L LAB CHEMISTRY METHOD 07/31/2024 8:55 AM [facility] LAB Potassium 4.4 3.5 - 5.5 [...] 07/31/2024 8:55 AM [facility] LAB Blood Venous blood specimen / Unknown Venipuncture / Unknown 07/31/2024 4:39 AM EST 07/31/2024 7:14 AM EST us Brian Avalos MD LAB BLOOD ORDERABLES Final Res ult [facility] LAB [address] [place] [address], from Last 3 Months or Most Recently Relevant to Health Maintenance Care Teams Preschool Principal Relationship Specialty Start Date End Date Judy Mack MD [address] [place] [address] PCP - General Internal Medicine 06/25/17
--- OUTSIDE RECORDS SUMMARY | 2024-11-23 16:25 | XMS_ITS | Encounter Summary ---
Author Organization [facility] Address [address] [place] [address] Care Team Providers Care Park Attendant Name Role Phone Lorraine Popanna Primary Care Provider [phone] Encounter Details Date Type Department Care Team (Late st Contact Info) Description 10/22/2024 [employer] Message [facility] [address] [address] [employer] [facility] Provider [address] [place] [address] Surgery Paperwork Social History Tobacco Use Types Packs/Day Years Used Date Smoking Tobacco: Never Smokeless Tobacco: Never Alcohol Use Standard Drinks/Week Comments Yes 0 (1 standard drink = 0.6 oz pur e alcohol) once monthly Hunger Vital Sign Answer Date Recorded Within the past 12 months, y ou worried that your food would run out before you got the money to buy more. Never true 11/10/19 25 Within the past 12 months, t he food you bought just didn't last and you didn't have money to get more. Never true 11/09/2024 Comments No Sex and Gender Information Value Date Recorded Sex Assigned at Female 05/01/2024 11:40 AM EDT Legal Sex Female 5:08 AM EDT Gender Identity Female 05/01/2024 11:40 AM EDT Sexual Orientation Straight 07/13/2024 11 :09 AM EST documented as of this encounter Plan of Treatment Upcoming Encounters Date Type Department Care Team (Late Contact Info) Description 12/03/2024 1:15 PM EDT Follow-Up CC [facility] AT [address] [facility] [place] [address] Saqib Santos J.P., MD [address] [place] [address] documented as of this encounter Visit Diagnoses Not on filedocumented in this encounter Care Teams Park Attendant Relationship Specialty Start Date End Date Chen Pop [facility] [place] [address] PCP - General Internal Medicine 05/01/24 documented as of this encounter
--- OUTSIDE RECORDS SUMMARY | 2024-11-23 16:25 | XMS_ITS | Encounter Summary ---
Author Organization [facility] Address [address] [place] [address] Care Team Providers Care Toy Painter Name Role Phone Chen Pop Primary Care Provider [phone] Encounter Details Date Type Department Care Team (Late st Contact Info) Description 07/06/2024 myChart Message Initial Department [address] [place] [address] Mychart, Generic Provider [address] [place] [address] Questionnaire Submission Social History Tobacco Use [...] PM EDT Follow-Up CC [facility] AT [address] [place] [address] Saqib Santos J.P., MD [address] [place] [address] documented as of this encounter Visit Diagnoses Not on filedocumented in this encounter Care Teams Toy Painter Relationship Specialty Start Date End Date Chen Pop [address] [place] [address] PCP - General Internal Medicine 05/01/24 documented as of this encounter
--- OUTSIDE RECORDS SUMMARY | 2024-11-23 16:25 | XMS_ITS | Encounter Summary ---
Author Organization [facility] Address [address] [place] [address] Care Team Providers Care Commercial Fisher Name Role Phone Lorraine Popanna Primary Care Provider [phone] Encounter Details Date Type Department Care Team (Late st Contact Info) Description 10/27/2024 [employer] Message Initial Department [address] [place] [address] Mychart, Generic Provider [place] [address] Questionnaire Submission Social History Tobacco [...] PM EDT Follow-Up CC [facility] AT [address] [facility] [address] [place] [address] Saqib Santos J.P., MD [address] [place] [address] documented as of this encounter Visit Diagnoses Not on filedocumented in this encounter Care Teams Commercial Fisher Relationship Specialty Start Date End Date Donn Chen [address] [place] [address] PCP - General Internal Medicine 05/01/24 documented as of this encounter
--- OUTSIDE RECORDS SUMMARY | 2024-11-23 16:25 | XMS_ITS | Encounter Summary ---
Author Organization [facility] Address [address] [place] [address] Care Team Providers Care [employer] Flatbed Truck Driver Name Role Phone Lorraine Popanna Primary Care Provider [phone] Encounter Details Date Type Department Care Team (Late st Contact Info) Description 10/24/2024 [employer] Message Initial Department [address] [place] [address] Mychart, Generic Provider [facility] [place] [address] Questionnaire Submission Social History Tobacco [...] PM EDT Follow-Up CC [facility] AT [address] [facility] [address] [place] [address] Saqib Santos J.P., MD [address] [place] [address] documented as of this encounter Visit Diagnoses Not on filedocumented in this encounter Care Teams Local [employer] Flatbed Truck Driver Relationship Specialty Start Date End Date Donn Chen [address] [place] [id number] PCP - General Internal Medicine 05/01/24 documented as of this encounter
--- OUTSIDE RECORDS SUMMARY | 2024-11-23 16:25 | XMS_ITS | Clinical Summary ---
Author Organization [facility] Address [address] [facility] [address] [place] [address] Phone Care Team Providers Care Rotary Soil Stabilizer Name Role Phone Unavailable Primary Care Provider Unavailabl e Allergies Active Allergy Reactions Criticality Noted Date Comments Doxycycline 04/19/2021 Sulfa Antibiotics 04/19/2021 Medications DULoxetine (CYMBALTA) [address] capsule Take 60 mg by mouth 1 (one) time each day 1 Active traZODone (DESYREL) 50 MG tablet Take 50 mg by mouth every night 1 Active alpha tocopherol (VITAMIN E) 100 units capsule Take 400 Units by mouth daily Active Perkins-3 1000 MG capsule Take 1 capsule by mouth daily Active acetaminophen (TYLENOL) 500 MG tablet Take 1,000 mg by mouth every 6 (six) hours if needed for mild pain Active cholecalciferol (VITAMIN D-3) 25 MCG (1000 UT) tablet Take 1,000 Units by mouth 1 (one) time each day Active melatonin 3 MG tablet Take 3 mg by mouth every night Active pantoprazole (PROTONIX) 40 MG EC tablet Take 40 mg by mouth in the morning and 40 mg in the evening. Do not crush, chew, or split. . Active acyclovir (ZOVIRAX) 400 MG tablet Take 400 mg by mouth 2 (two) times a day 1 Active Aspirin Low Dose 81 MG EC tablet 1 Active ondansetron (ZOFRAN) 4 MG tablet if needed 1 Active [facility] Senna 8.6 MG tablet TAKE 2 TABLETS BY MOUTH AT BEDTIME NEEDED FOR CONSTIPATION 1 Active clindamycin (CLEOCIN) 300 MG capsule TAKE 1 CAPSULE BY MOUTH EVERY 8 HOURS UNTIL FINISHED 2 Active LORazepam (ATIVAN) 0.5 MG tablet 1 Active prochlorperazin e (COMPAZINE) 5 MG tablet TAKE 1-2 TABLETS BY MOUTH EVERY 6 HOURS NEEDED FOR NAUSEA 1 Active rOPINIRole (REQUIP) 0.5 MG tablet TAKE 2 TABLETS BY MOUTH AT BEDTIME, 1-3 HOURS BEFORE BEDTIME 2 Active Ninlaro 3 MG capsule 2 Active Probiotic Product (PROBIOTIC-10 PO) Take by mouth Active gabapentin (NEURONTIN) 300 MG capsule Take 600 mg by mouth 2 Active ferrous sulfate 325 (65 Fe) MG tablet Take 325 mg by mouth 1 (one) time each day with breakfast Active lisinopril 2.5 MG tablet Take 1 tablet (2.5 mg total) by mouth 1 (one) time each day 30 tablet 11 3 Active Hospital, Clinic, or Other Facility Administered Medication Ordered Dose Route Frequency Start Date End Date Status iron sucrose (VENOFER) injection 100 mgIndications:Iron deficiency anemia, not otherwise specified 100 mg IV Weekly 04/15/2023 Active Active Problems Problem Noted Date Diagnosed Date Other iron deficiency anemia 01/28/2023 Stage 3a chronic kidney disease 03/06/2022 Restless legs 03/06/2022 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 Keep headboard elevated at 45?? angle for nighttime. Carefully continue Protonix as prescribed. Immunizations Name Administration Dates Next Due Pfizer SARS-COV-2 11/24/2020,11/03/2020 Pneumococcal Conjugate 13-Valent 05/05/2021 Pneumococcal Polysaccharide 05/23/2011 Family History Medical History Relation Comments Cancer Father Diabetes Mother Hypertension Mother Cancer Mother's Sister Relation Status Comments Father Other Lung cancer Mother Mother's Sister Other Breast cancer Social History Tobacco Use Types Packs/Day Years Used Date Smoking Tobacco: Former Cigarettes Q uit: 1970 Smokeless Tobacco: Never Tobacco Cessation:Counseling Given: Not Answered Alcohol Use Standard Drinks/Week Comments Yes 1 (1 standard drink = 0.6 oz pur e alcohol) 1 glass of wine once a month Comments Unknown Sex and Gender Information Value Date Recorded Sex Assigned at Not on file Legal Sex Female 4:15 PM EDT Gender Identity Not on file Sexual Orientation Not on file Last Filed Vital Signs Vital Sign Reading Time Taken Comments Blood Pressure 120/80 02/04/2024 1:37 PM EDT Pulse 69 02/04/2024 1:37 PM EDT Temperature - - Respiratory Rate 24 02/13/2023 10:35 AM EDT Oxygen Saturation 97% 08/05/2023 10:52 AM EST Inhaled Oxygen Concentration - - Weight 72.1 kg (159 lb) 02/04/2024 1:37 PM EDT Height 165.1 cm (5' 5 ) 08/05/2023 10:52 AM EST Body Mass Index 26.46 08/05/2023 10:52 AM EST Plan of Treatment Health Maintenance Due Date Last Done Comments Pneumococcal Vaccine: 65+ Years (3 of 3 - PPSV23 or PCV20) 06/30/2021 05/05/2021, 12/05/2018, 05/23/2011 Influenza Vaccine (#1) 2024 , 06/14/2020, 07/08/2019, Additional history exists Hepatitis B Vaccine Aged Out No longe r eligible based on patient's age to complete this topic Insurance MEDICARE [facility] MEDICARE [facility]
--- OUTSIDE RECORDS SUMMARY | 2024-11-23 16:25 | XMS_ITS | Encounter Summary ---
Author Organization [facility] Address [address] [place] [address] Care Team Providers Care Clinical Esthetician Name Role Phone Lorraine Popanna Primary Care Provider [phone] Encounter Details Date Type Department Care Team (Late st Contact Info) Description 10/24/2024 [employer] Message Initial Department [address] [place] [address] Mychart, Generic Provider [place] [address] Questionnaire Submission Social History Tobacco [...] PM EDT Follow-Up CC [facility] AT [address] [facility] [address] [place] [address] Saqib Santos J.P., MD [address] [place] [address] documented as of this encounter Visit Diagnoses Not on filedocumented in this encounter Care Teams Clinical Esthetician Relationship Specialty Start Date End Date Donn Chen [address] [place] [phone] PCP - General Internal Medicine 05/01/24 documented as of this encounter
--- OUTSIDE RECORDS SUMMARY | 2024-11-23 16:25 | XMS_ITS | Referral Summary ---
Author Organization [facility] Address [address] [place] [address] Care Team Providers Care Electro Optical Engineer Name Role Phone CarolinaChen morejon Primary Care Provider [phone] Encounters Date Type Department Care Team Description 11/09/2024 7:37 AM EST - 11/12/2024 4:10 PM EST Hospital Encounter [facility] 2 Medical Surgery Unit [address] [place] [address] Saqib Santos J.P., MD Primary localized osteoarthritis of right knee (Primary Dx); Primary osteoarthritis of left knee Discharge Disposition: Inpatient Rehab Facility (IRF) (62) 11/09/2024 9:40 AM EST - 11/09/2024 12:25 PM EST Surgery [facility] Day Surgery [address] [place] [address] Saqib Santos J.P., MD ARTHROPLASTY, KNEE, CONDYLE AND PLATEAU; MEDIAL AND LATERAL COMPARTMENTS WITH OR WITHOUT PATELLA RESURFACING (TOTAL KNEE ARTHROPLASTY) [95268 (CPT??)] 11/09/2024 9:59 AM EST Anesthesia Event [facility] Day Surgery [address] [place] [address] Jimmy Liu MD Foley, Joseph P, MD 10/29/2024 Prep for Case [facility] [address] [place] [address] Saqib Santos J.P., MD 10/29/2024 1:00 PM EST Office Visit [facility] [address] [address] Saqib Santos J.P., MD Arthritis of left knee (Primary Dx); Arthrofibrosis of knee joint, right 10/27/2024 myChart Message Initial Department [address] [place] [address] Mychart, Generic Provider Questionnaire Submission 10/27/2024 myChart Message Initial Department [address] [place] [address] Mychart, Generic Provider Questionnaire Submission 10/27/2024 myChart Message Initial Department [address] [place] [address] Mychart, Generic Provider Questionnaire Submission 10/27/2024 myChart Message Initial Department [address] [place] [address] Mychart, Generic Provider Questionnaire Submission 10/26/2024 myChart Message Initial Department [address] [place] [address] Mychart, Generic Provider Questionnaire Submission 10/26/2024 myChart Message [facility] Surgery [address] [place] [address] Mychart, Generic Provider Questionnaire due soon 10/24/2024 myChart Message Initial Department [address] [place] [address] Mychart, Generic Provider Questionnaire Submission 10/24/2024 myChart Message Initial Department [address] [place] [address] Mychart, Generic Provider Questionnaire Submission 10/22/2024 myChart Message [facility] [address] [address] Mychart, Generic Provider Surgery Paperwork 10/21/2024 11:35 AM EST Ancillary Procedure [facility] [address] [address] History of total right knee replacement 10/21/2024 11:40 AM EST Follow-Up [facility] [address] [address] Saqib Santos J.P., MD Primary osteoarthritis of left knee (Primary Dx); History of total right knee replacement 10/20/2024 Telephone [facility] [address] [address] Saqib Santos J.P., MD 09/09/2024 Refill [facility] [address] [address] Saqib Santos J.P., MD 09/03/2024 Telephone [facility] [address] [place] [address] Tess Devine PAC Referral Request (PONGOR/Pt is calling to have ref for pt faxed to [facility] fax# [phone]/ patients in house pt is over on 09/11/24/ needs this order faxed jose so she can begin out house pt) 08/31/2024 Telephone [facility] [address] [place] [address] Telephone Intake, Staff PAC Patient Request Call Back_Ponsierrar (Pt would like a call back in regards to some questions she has for Doctor Tom. She is requesting a ref and would like to ask him is she can drive now.) 08/31/2024 Orders Only [facility] [address] [address] Saqib Santos J.P., MD Primary osteoarthritis of one knee (Primary Dx) 08/28/2024 myChart Message [facility] [address] [address] Saqib Santos J.P., MD Outpatient PT 08/26/2024 [facility] [address] [address] Saqib Santos J.P., MD Dressing removal 08/26/2024 Telephone [facility] [address] [address] Saqib Santos J.P., MD from Last 3 Months Allergies No known active allergies Medications DULoxetine DR (CYMBALTA) 60 mg capsule Take 60 mg by mouth once a day. Active acyclovir (ZOVIRAX) 400 mg tablet Take 400 mg by mouth 2 times a day. Active lisinopriL (PRINIVIL,ZEST RIL) 2.5 mg tablet Take 2.5 mg by mouth once a day. Active gabapentin (NEURONTIN) 600 mg tablet Take 600 mg by mouth 2 times a day. Active calcium carbonate (CALCIUM 500 ORAL) Take 1,000 mg by mouth once a day. Active ERGOCALCIFEROL , VITAMIN D2, ORAL Take by mouth once a day. Active traZODone (DESYREL) 100 mg tablet Take 100 mg by mouth nightly. Active rOPINIRole XL (REQUIP XL) 6 mg tablet extended release 24 hr 24 hr tablet Take by mouth nightly. Active montelukast (SINGULAIR) 10 mg tablet Take 10 mg by mouth nightly. Active aspirin 81 mg EC tablet Take by mouth once a day. Active ixazomib (Ninlaro) 3 mg capsule Take 3 mg by mouth once a week. 3 weeks on / 1 week off Takes on Saturday. Prescribing MD told her ok to take Saturday before surgery. Active prochlorperazi ne (COMPAZINE) 5 mg tablet Take 10 mg by mouth every 6 hours as needed for nausea or vomiting. Active pantoprazole DR (PROTONIX) 40 mg tablet Take 40 mg by mouth once a day. Active aspirin 81 mg EC tablet Take 1 tablet (81 mg total) by mouth 2 times daily after meals. 4 Active rivaroxaban (XARELTO) 10 mg tablet Take 1 tablet (10 mg total) by mouth once a day. Do not start the ASA until you have competed this prescription 4 Active Additional Information Patient not taking.Reported on 10/29/2024 cyclobenzaprin e (FLEXERIL) 10 mg tablet TAKE 1 TABLET (10 MG TOTAL) BY MOUTH 3 TIMES A DAY NEEDED FOR MUSCLE SPASMS FOR UP TO 10 DAYS 30 tablet 5 Active aspirin 81 mg EC tablet Take 1 tablet (81 mg total) by mouth 2 times daily after meals. 5 025 Active rivaroxaban (XARELTO) 10 mg tablet Take 1 tablet (10 mg total) by mouth once a day. Do not start the ASA until you have competed this prescription Active oxyCODONE-acet aminophen (Percocet) 5-325 mg tablet Take 2 tablets by mouth every 6 hours as needed for pain for up to 6 days. Limit to a total 3 grams of Tylenol / Acetaminophen per day from all sources 40 tablet 5 025 Active Problems Problem Noted Date Diagnosed Date Primary osteoarthritis of left knee 11/09/2024 Primary localized osteoarthritis of right knee 1 09/19/2023 Social History Tobacco Use Types Packs/Day Years Used Date Smoking Tobacco: Never Smokeless Tobacco: Never Tobacco Cessation:Counseling Given: Not Answered Alcohol Use Standard Drinks/Week Comments Yes 0 [...] Orientation Straight 07/13/2024 11 :09 AM EST Last Filed Vital Signs Vital Sign Reading Time Taken Comments Blood Pressure 95/60 11/12/2024 10:57 AM EST Pulse 73 11/12/2024 10:57 AM EST Temperature 36.8 ??C (98.2 ??F) 11/12/2024 10:[address] Respiratory Rate 16 11/12/2024 10:57 AM EST Oxygen Saturation 93% 11/12/2024 10:57 AM EST Inhaled Oxygen Concentration - - Weight 72.7 kg (160 lb 4.4 oz) 11/12/2024 6:00 A M EST Height 165.1 cm (5' 5 ) 11/09/2024 3:00 PM EST Body Mass Index 26.67 11/09/2024 3:00 PM EST Plan of Treatment Upcoming Encounters Date Type Department Care Team (Late st Contact Info) Description 12/03/2024 1:15 PM EDT Follow-Up [facility] [address] [address] [place] [address] Saqib Santos J.P., MD [address] [place] [address] Medical Devices Implanted Type Area Die Try Out Worker Device Identifier Shelf Expiration Date Model / Serial / Lot Patella Asymmetric Metal Backed Tritanium Size A32 [id number] Tritanium - [id number] Implanted:Qty: 1 on 07/20/2024 by Saqib Santos J.P., MD at [facility] Implant Right: Knee CHRISTIE [id number] 04/09/2029 5552-L-32 0 / / [id number] Insert Tibial Bearing Size 4 11mm Triathlon X3 - [id number] Implanted:Qty: 1 on 07/20/2024 by Saqib Santos J.P., MD at [facility] Implant Right: Knee CHRISTIE [id number] 03/27/2029 5531-G-41 1-E / / [id number] Component Femoral Knee Cruciate Retaining Right Size 4 - [id number] Implanted:Qty: 1 on 07/20/2024 by Saqib Santos J.P., MD at [facility] Implant Right: Knee CHRISTIE [id number] 04/25/2029 5517-F-40 2 / / [id number] Baseplate Tritanium Size 4 Triathlon - [id number] Implanted:Qty: 1 on 07/20/2024 by Saqib Santos J.P., MD at [facility] Implant Right: Knee CHRISTIE [id number] 03/02/2029 5536-B-40 0 / / [id number] Component Femoral Cruciate Retaining Beaded Left Size 4 Triathlon - [id number] Implanted:Qty: 1 on 11/09/2024 by Saqib Santos J.P., MD at [facility] Implant Left: Knee CHRISTIE [id number] 01/22/2029 5517-F-40 1 / / [id number] Baseplate Tritanium Size 4 Triathlon - [id number] Implanted:Qty: 1 on 11/09/2024 by Saqib Santos J.P., MD at [facility] Implant Left: Knee CHRISTIE [id number] 08/27/2029 5536-B-40 0 / / [id number] Patella Asymmetric Metal Backed Tritanium Size A32 [id number] Tritanium - [id number] Implanted:Qty: 1 on 11/09/2024 by Saqib Santos J.P., MD at [facility] Implant Left: Knee CHRISTIE [id number] 01/21/2029 5552-L-32 0 / / [id number] Tibial Bearing Insert Size 4 9mm Triathlon - [id number] Implanted:Qty: 1 on 11/09/2024 by Saqib Santos J.P., MD at [facility] Implant Left: Knee CHRISTIE [id number] 06/18/2029 5531-G-40 9-E / / [id number] Procedures * Due to [place] state law, this organization might not be sharing negative HIV tests. Procedure Name Priority Date/Time Associated Diagnosis Comments CBC AUTO DIFFERENTIAL Routine 11/10/2024 10:17 AM EST BASIC METABOLIC PANEL Routine 11/10/2024 10:17 AM EST XR KNEE 1 OR 2 VW LEFT Routine 11/09/2024 1:17 PM EST TISSUE EXAM Routine 11/09/2024 10:55 AM EST Primary osteoarthritis of left knee UT TOTAL KNEE ARTHROPLASTY 11/09/2024 9:44 AM EST Primary osteoarthritis of left knee Special Needs OSTEONICS/CHRISTIE UT AN PAIN BLOCK AT SURGEON REQUEST Routine 11/09/2024 9:40 AM EST UT AN PERIPHERAL BLOCK POST-OP PAIN Routine 11/09/2024 9:40 AM EST METHICILLIN RESISTANT STAPHYLOCOCCUS AUREUS (MRSA) CULTURE SCREEN Routine 10/29/2024 2:13 PM EST Arthritis of left knee Arthrofibrosis of knee joint, right TYPE AND SCREEN Routine 10/29/2024 2:04 PM EST Preop testing BASIC METABOLIC PANEL Routine 10/29/2024 2:04 PM EST Preop testing CBC Routine 10/29/2024 2:04 PM EST Preop testing XR KNEE 4+ VW RIGHT Routine 10/21/2024 11:30 AM EST History of total right knee replacement from Last 3 Months Results * Due to [place] state law, this organization might not be sharing negative HIV tests. * (ABNORMAL) CBC Auto Differential (11/10/2024 10:17 AM EST) WBC 10.2 3.8 - 10.8 10*3/uL 11/10/2024 11:23 AM EST [facility] RBC 3.78(L) 3.80 - 5.10 10*6/uL 11/10/2024 11:23 AM EST [facility] Hemoglobin 11.1(L) 11.7 - 15.5 g/dL 11/10/2024 11:23 AM EST [facility] Hematocrit 34.6(L) 35.0 - 45.0 % 11/10/2024 11:23 AM EST [facility] MCV 91.5 80.0 - 100.0 fL 11/10/2024 11:23 AM EST [facility] MCH 29.4 27.0 - 33.0 pg 11/10/2024 11:23 AM EST [facility] MCHC 32.1 32.0 - 36.0 g/dL 11/10/2024 11:23 AM EST [facility] RDW 14.0 11.0 - 15.0 % 11/10/2024 11:23 AM [facility] Platelets 183 140 - 400 10*3/uL 11/10/2024 11:23 AM [facility] MPV 9.6 7.5 - 12.5 fL 11/10/2024 11:23 AM [facility] Neutrophil % 87.7 % 11/10/2024 11:23 AM [facility] Immature Grans % 0.4 0.0 - 0.9 % 11/10/2024 11:23 AM [facility] Lymphocyte % 5.6 % 11/10/2024 11:23 AM [facility] Monocyte % 6.2 % 11/10/2024 11:23 AM [facility] Eosinophil % 0.0 % 11/10/2024 11:23 AM [facility] Basophil % 0.1 % 11/10/2024 11:23 AM [facility] Neutrophil # 8.90(H) 1.50 - 7.80 10*3/uL 11/10/2024 11:23 AM [facility] Immature Grans # 0.04(H) <=0.03 10*3/uL 11/10/2024 11:23 AM [facility] Lymphocyte # 0.60(L) 0.85 - 3.90 10*3/uL 11/10/2024 11:23 AM EST [facility] Monocyte # 0.60 0.20 - 0.95 10*3/uL 11/10/2024 11:23 AM [facility] Eosinophil # <0.03 0.02 - 0.50 10*3/uL 11/10/2024 11:23 AM EST [facility] Basophil # <0.03 0.00 - 0.20 10*3/uL 11/10/2024 11:23 AM EST [facility] nRBC % 0.0 /100 WBCs 11/10/2024 11:23 AM EST [facility] nRBC # <0.01 <0.01 10*3/uL 11/10/2024 11:23 AM EST [facility] Blood Structure of peripheral vein / Unknown Venipuncture / Unknown 11/10/2024 10:17 AM EST 11/10/2024 10:32 AM EST us Saqib Santos MD LAB BLOOD ORDERABLES Final R esult [facility] [address] [place] [address], * (ABNORMAL) Basic Metabolic Panel (11/10/2024 10:17 AM EST) Only the most recent of2 resultswithin the time period is included. NA 135 135 - 145 mmol/L 11/10/2024 11:10 AM EST [facility] K 4.7 3.5 - 5.3 mmol/L 11/10/2024 11:10 AM EST [facility] Cl 100 98 - 107 mmol/L 11/10/2024 11:10 AM EST [facility] CO2 25 22 - 32 mmol/L 11/10/2024 11:10 AM EST [facility] BUN 17 7 - 23 mg/dL 11/10/2024 11:10 AM EST [facility] Creatinine 1.13 0.50 - 1.20 mg/dL 11/10/2024 11:10 AM EST [facility] Glucose 256(H) 65 - 99 mg/dL 11/10/2024 11:10 AM EST [facility] Calcium 8.7 8.6 - 10.5 mg/dL 11/10/2024 11:10 AM EST [facility] Anion Gap 10 5 - 15 11/10/2024 11:10 AM EST [facility] eGFR 50(L) >=60 mL/min/1. 73m2 11/10/2024 11:10 AM EST [facility] Comment:The estimated glomer ular filtration rate (eGFR) is calculated using a new formula developed by the NKF-ASN task force to eliminate race-based correction factors. The new formula uses serum/plasma creatinine, age, and gender to determine eGFR. A value below 60mls/min might indicate kidney disease and will be flagged. For additional information, see Sera et al, Am J Kidney Dis. 2021;79(2):268- 288, A Unifying Approach for GFR estimation: Recommendations of the NKF-ASN Task Force on Reassessing the Inclusion of Race in Diagnosing Kidney Disease . Blood Structure of peripheral vein / Unknown Venipuncture / Unknown 11/10/2024 10:17 AM EST 11/10/2024 10:32 AM EST us Saqib Santos MD LAB BLOOD ORDERABLES Final R esult [facility] [address] [place] [address], [place] * X-Ray Knee Left 1 or 2 Views (11/09/2024 1:17 PM EST) Anatomical Region Laterality Modality Lower Extremities, Knee Left Computed Radiography 11/09/2024 2:57 PM EST Impressions 11/09/2024 2:58 PM EST Left knee portable AP and crosstable lateral. Air within the soft tissues related to surgery. Moderate osteopenia. The new left tricompartmental knee prosthesis is in normal anatomic alignment. Hardware is intact. No periprosthetic complications are detected. If this radiology report contains a blank impression section, it is an incomplete radiology report. ??Please contact the interpreting radiologist or applicable radiology division as soon as possible to obtain the completed interpretation. ? Workstation ID: [id number] Narrative 11/09/2024 2:58 PM EST COMPARISON: ??06/04/2024. ?? FINDINGS AND Resulting Agency Comment [id number] Procedure Note Marlena Lakhani MD - 11/09/2024 COMPARISON: 06/04/2024. FINDINGS AND IMPRESSION: Left knee portable AP and crosstable lateral. Air within the soft tissues related to surgery. Moderate osteopenia. The new left tricompartmental knee prosthesis is in normal anatomicalignment. Hardware is intact. No periprosthetic complications aredetected. If this radiology report contains a blank impression section, it is anincomplete radiology report. Please contact the interpreting radiologistor applicable radiology division as soon as possible to obtain thecompleted interpretation. Workstation ID: [id number] us Saqib Santos MD IMG XR PROCEDURES Final Resu lt * Tissue Exam (11/09/2024 10:55 AM EST) Final Diagnosis Bone and Tissue, Left Knee: - Osteoarthritis with osteophyte formation and bony eburnation. [employer] MANUAL 11/16/2024 12:54 PM EDT [facility] at 1254 EDT Clinical History Pre-op diagnosis: Primary osteoarthritis of left knee [M17.12] [employer] MANUAL 11/16/2024 12:54 PM EDT [facility] Gross Description 1. Knee, Left The specimen is received in formalin, labeled with the patient's name, medical record number, date of , and left knee bone and tissue . The specimen consists of 11.8 x 8.6 x 3.7 cm of fragments and plates of bone. There are portions of the tibial plateau, femoral condyles and patella. The articular surfaces are pitted and eburnated with minimal marginal osteophyte formation. The margins are flat. A sales representative public utilities section is submitted in cassette 1A after fixation and decalcification. [employer] MANUAL 11/16/2024 12:54 PM EDT [facility] Gross Description User Grossing complete by Patel Sutherland on 11/09/2024 3:23 PM [facility] 11/16/2024 12:54 PM EDT [facility] Embedded Images [facility] 11/16/2024 12:54 PM EDT [facility] Resulting Agency Case was signed out at [facility], Department of Pathology, [employer] 3 CLIA [id number] [employer] MANUAL 11/16/2024 12:54 PM EDT [facility] Report Header Surgical Pathology Report ? Case: [id number] ? Authorizing Provider: ??Saqib Santos MD ? Collected: ? 11/09/2024 1055 ? Ordering Location: ? [facility] ?Received: ?11/09/2024 1308 ? [facility] ? Surgery ? Pathologist: ? Campos Saini MD ? Specimen: ?Knee, Left, LEFT KNEE BONE AND TISSUE ? 11/16/2024 12:54 PM EDT [facility] Bone Structure of left knee region / Unknown 11/09/2024 10:55 AM EST 11/09/2024 1:08 PM EST Comment:Pre-op diagnosis: Primary osteoarthritis of left knee [M17.12] us Saqib Santos MD LAB PATHOLOGY/CYTOLOGY ORDER DAREN Final Result [facility] [address] [place] [address], * UT AN PERIPHERAL BLOCK POST-OP PAIN, UT AN PAIN BLOCK AT SURGEON REQUEST (11/09/2024 9:40 AM EST) Narrative Jimmy Liu MD - 11/09/2024 9:40 AM EST Jimmy Liu MD ? 11/09/2024 ??9:52 AM Peripheral Nerve Block Patient Location at Time of Procedure: holding area Start Date/Time: 11/09/2024 9:40 AM End Date/Time: 11/09/2024 9:45 AM Reason for block: at surgeon's request and post-op pain management Anesthesia Staff Authorized by: Jimmy Liu MD ?? Performed by: Jimmy Liu MDAnesthesiologist: Jimmy Liu MD Performed: anesthesiologist Requesting Attending Surgeon/Service: DR. Rosado I was present during this procedure. Preanesthesic Checklist 2 patient identifiers IV checked site marked risks and benefits discussed monitors and equipment checked pre-op evaluation anesthesia consent all elements of maximal sterile barrier technique followed patient position confirmed timeout performed Peripheral Block Ultrasound #1 Probe: Linear [id number] Patient position: supine Prep: ChloraPrep Patient monitoring: heart rate, continuous pulse oximetry and NIBP Block type: adductor canal block Laterality: left Injection technique: single-shot Number of attempts: 1 Procedures: ultrasound guided/images retained Injection Pressure Monitor (B-Smart) applied with standardized injection force <15 psi: No Local infiltration: ropivacaine Infiltration strength: 0.5 % Dose: 20 mL Medications Given: ropivacaine PF (NAROPIN) 0.5% (5 mg/mL) injection - peripheral nerve block, Left Abductor Canal 20 mL - 11/09/2024 9:40:00 AM Needle - Block 1: Needle type: Pajunk Needle gauge: 21 G Needle length: 10 cm Needle localization: ultrasound guidance Assessment Injection assessment: negative aspiration for heme, no paresthesia on injection and local visualized surrounding nerve on ultrasound Paresthesia pain: none Jimmy Liu MD ANESTHESIA ORDERABLES Edited Result - Final * Methicillin Resistant Staphylococcus aureus (MRSA) Culture Screen (10/29/2024 2:13 PM EST) Culture No methicillin resistant Staphylococcus aureus (MRSA) isolated. 10/31/2024 5:56 AM EST [facility] Swab Nasal structure / Unknown Non-Blood Collection / Unknown 10/29/2024 2:13 PM EST 10/29/2024 2:13 PM EST Narrative [facility] - 10/31/2024 5:56 AM EST [facility] Received Date: MICRO NUMBER: [id number] SPECIMEN QUALITY: Adequate SOURCE: SWAB NOSE STATUS: FINAL Saqib Santos MD LAB MICROBIOLOGY - GENERAL O RDERABLES Final Result [facility] [address], [place] [address], [facility] [address], [place] [address], [place] [phone] * CBC (10/29/2024 2:04 PM EST) WBC 5.1 3.8 - 10.8 10*3/uL 10/29/2024 2:25 PM EST [facility] RBC 4.30 3.80 - 5.10 10*6/uL 10/29/2024 2:25 PM EST [facility] Hemoglobin 12.9 11.7 - 15.5 g/dL 10/29/2024 2:25 PM EST [facility] Hematocrit 40.0 35.0 - 45.0 % 10/29/2024 2:25 PM EST [facility] MCV 93.0 80.0 - 100.0 fL 10/29/2024 2:25 PM EST [facility] MCH 30.0 27.0 - 33.0 pg 10/29/2024 2:25 PM EST [facility] MCHC 32.3 32.0 - 36.0 g/dL 10/29/2024 2:25 PM EST [facility] RDW 13.9 11.0 - 15.0 % 10/29/2024 2:25 PM EST [facility] Platelets 277 140 - 400 10*3/uL 10/29/2024 2:25 PM EST [facility] MPV 9.2 7.5 - 12.5 fL 10/29/2024 2:25 PM EST [facility] Blood Structure of peripheral vein / Unknown Venipuncture / Unknown 10/29/2024 2:04 PM EST 10/29/2024 2:04 PM EST us Ashok Potter MD LAB BLOOD ORDERABLES Final Res ult [facility] [address] [place] [address], * Type and screen (10/29/2024 2:04 PM EST) ABO Blood Type O 10/29/2024 3:06 PM EST [facility] RH Type Positive 10/29/2024 3:06 PM EST [facility] Expiration Date/Time 2024-11-12 23:59 10/29/2024 3:06 PM EST [facility] Antibody Screen Negative 10/29/2024 3:06 PM EST [facility] Blood Structure of peripheral vein / Unknown Venipuncture / Unknown 10/29/2024 2:04 PM EST 10/29/2024 2:04 PM EST Ashok Potter MD LAB BLOOD BANK TEST ORDERABLES Edited Result - Final [facility] [address] [place] [address], * X-Ray Knee Right 4+ Views (10/21/2024 11:30 AM EST) Anatomical Region Laterality Modality Lower Extremities, Knee Right Computed Radiography Saqib Santos MD IMG XR PROCEDURES Final Resu lt from Last 3 Months Insurance MEDICARE [facility] SUPP MEDICARE [facility] SUPP Advance Directives Documents on File Type Date Recorded Patient Machine Shop Supervisor Expl anation Health Care Proxy 07/02/2024 1:51 PM [facility] Health Care Proxy * Full Code (Latest Code Status on File) Date Activated Date Inactivated Comments 11/09/2024 12:05 PM 11/12/2024 6:25 PM * Full Code Date Activated Date Inactivated Comments 07/20/2024 12:55 PM 07/22/2024 3:45 PM Care Teams Electro Optical Engineer Relationship Specialty Start Date End Date Chen Pop 1960 [place] [address] PCP - General Internal Medicine 05/01/24
--- OUTSIDE RECORDS SUMMARY | 2024-11-23 16:25 | XMS_ITS | Encounter Summary ---
Author Organization [facility] Address [address] [place] [address] Care Team Providers Care Machine Design Engineer Name Role Phone Lorraine Popanna Primary Care Provider [phone] Encounter Details Date Type Department Care Team (Late st Contact Info) Description 10/27/2024 MoPub Message Initial Department [address] [place] [address] Mychart, Generic Provider [facility] [place] [address] Questionnaire Submission Social History Tobacco [...] PM EDT Follow-Up CC [facility] AT [address] [facility] [address] [place] [address] Saqib Santos J.P., MD [address] [place] [address] documented as of this encounter Visit Diagnoses Not on filedocumented in this encounter Care Teams Machine Design Engineer Relationship Specialty Start Date End Date Donn Chen [address] [place] [address] PCP - General Internal Medicine 05/01/24 documented as of this encounter
--- OUTSIDE RECORDS SUMMARY | 2024-11-23 16:25 | XMS_ITS | Encounter Summary ---
Author Organization [facility] Address [address] [place] [address] Care Team Providers Care Athletic Turf Worker Name Role Phone CarolinajoseriazChen Primary Care Provider [phone] Encounter Details Date Type Department Care Team (Late st Contact Info) Description 10/29/2024 Prep for Case [facility] [address] [address] Saqib Santos J.P., MD [address] [place] [address] Social History Tobacco Use Types Packs/Day Years [...] PM EDT Follow-Up CC [facility] AT [address] [facility] [address] [place] [address] Saqib Santos J.P., MD [address] [place] [address] documented as of this encounter Visit Diagnoses Not on filedocumented in this encounter Care Teams Athletic Turf Worker Relationship Specialty Start Date End Date Chen Pop [facility] [place] [address] PCP - General Internal Medicine 05/01/24 documented as of this encounter
--- OUTSIDE RECORDS SUMMARY | 2024-11-23 16:25 | XMS_ITS | Clinical Summary ---
Author Organization [facility] Address [address] [place] [address] Care Team Providers Care Grape Pruner Name Role Phone Chen Pop Primary Care Provider [phone] Allergies No known active allergies Medications DULoxetine [...] ASA until you have competed this prescription 5 Active oxyCODONE-acet aminophen (Percocet) 5-325 mg tablet [...] localized osteoarthritis of right knee 1 09/19/2023 Encounters Date Type Department Care Team Description 11/09/2024 9:59 AM EST Anesthesia Event [facility] [address] [place] [address] Jimmy Liu MD Foley, Joseph P, MD 11/09/2024 9:40 AM EST - 11/09/2024 12:25 PM EST Surgery [facility] [address] [place] [address] Saqib Santos J.P., MD ARTHROPLASTY, KNEE, CONDYLE AND PLATEAU; MEDIAL AND LATERAL COMPARTMENTS WITH OR WITHOUT PATELLA RESURFACING (TOTAL KNEE ARTHROPLASTY) [49008 (CPT??)] 11/09/2024 7:37 AM EST - 11/12/2024 4:10 PM EST Hospital Encounter [facility] [address] [place] [address] Saqib Santos J.P., MD Primary localized osteoarthritis of right knee (Primary Dx); Primary osteoarthritis of left knee Discharge Disposition: Inpatient Rehab Facility (IRF) (62) 10/29/2024 1:00 PM EST Office Visit [facility] [address] [address] Saqib Santos J.P., MD Arthritis of left knee (Primary Dx); Arthrofibrosis of knee joint, right 10/29/2024 Prep for Case [facility] [address] [address] Saqib Santos J.P., MD 10/27/2024 myChart Message Initial Department [address] [place] [address] Mychart, Generic Provider Questionnaire Submission 10/27/2024 myChart Message Initial Department [address] [place] [address] Mychart, Generic Provider Questionnaire Submission 10/27/2024 myChart Message Initial Department [address] [place] [address] Mychart, Generic Provider Questionnaire Submission 10/27/2024 myChart Message Initial Department [address] [place] [address] Mychart, Generic Provider Questionnaire Submission 10/26/2024 myChart Message Initial Department [address] [place] [address] Mychart, Generic Provider Questionnaire Submission 10/26/2024 myChart Message [facility] Surgery [address] [place] [address] Mychart, Generic Provider Questionnaire due soon 10/24/2024 myChart Message Initial Department [address] [place] [address] Mychart, Generic Provider Questionnaire Submission 10/24/2024 myChart Message Initial Department [address] [place] [address] Mychart, Generic Provider Questionnaire Submission 10/22/2024 myChart Message [facility] [address] [address] Mychart, Generic Provider Surgery Paperwork 10/21/2024 11:40 AM EST Follow-Up [facility] [address] [address] Saqib Santos J.P., MD Primary osteoarthritis of left knee (Primary Dx); History of total right knee replacement 10/21/2024 11:35 AM EST Ancillary Procedure [facility] [address] [address] History of total right knee replacement 10/20/2024 Telephone [facility] [address] [address] Saqib Santos J.P., MD 09/09/2024 Refill [facility] [address] [address] Saqib Santos J.P., MD 09/03/2024 Telephone [facility] [address] [place], [place] [phone] Tess Devine PAC Referral Request (PONGOR/Pt is calling to have ref for pt faxed to [facility] fax# [phone]/ patients in house pt is over on 09/11/24/ needs this order faxed jose so she can begin out house pt) 08/31/2024 Telephone [facility] [address] [place], [place] [phone] Telephone Intake, Staff PAC Patient Request Call Back_Tom (Pt would like a call back in regards to some questions she has for Doctor Tom. She is requesting a ref and would like to ask him is she can drive now.) 08/31/2024 Orders Only [facility] [address] [address] Saqib Santos J.P., MD Primary osteoarthritis of one knee (Primary Dx) 08/28/2024 myChart Message [facility] [address] [address] Saqib Santos J.P., MD Outpatient PT 08/26/2024 myChart Message [facility] [address] [place] [address] Saqib Santos J.P., MD Dressing removal 08/26/2024 Telephone [facility] [address] [place] [address] Saqib Santos J.P., MD from Last 3 Months Social History Tobacco Use Types Packs/Day Years [...] PM EDT Follow-Up CC [facility] AT [address] [place] [facility] [address] [place] [address] Saqib Santos J.P., MD [address] [place] [address] Health Maintenance Due Date Last Done Comments Hepatitis C Screening 1945 Medicare AWV 12/09/1946 Urine Microalbumin 1956 Osteoporosis Screening 1996 Alcohol/Substance Use Screening 09/09/2024 Depression Screening and Follow-Up 09/09/2024 Health Care Proxy Review 09/09/2024 Social Drivers of Health Annual Screening 09/09/2024 COVID-19 Vaccine ( season) 2024 06/21/2024, 06/16/2023, 06/20/2022, Additional history exists Basic Metabolic Panel 11/10/2025 11/10/2024 , 10/29/2024, 07/31/2024, Additional history exists Fall Risk Screening 11/12/2025 11/12/2024 Pneumococcal Vaccine: 50+ Years (3 of 3 - PCV20 or PCV21) 05/05/2026 05/05/2021, 12/05/2018, 05/23/2011 DTaP,Tdap,and Td Vaccines (2 - Td or Tdap) 12/01/2031 11/30/2021, 03/25/2018, 06/27/2017, Additional history exists Tobacco Screening 09/09/2042 11/09/2024 Zoster Vaccines Completed 11/30/2021, 09/28/2021 RSV Vaccine (60+ years old and patients) Completed 08/07/2023 Influenza Vaccine Completed 06/27/2024, , 06/16/2023, Additional history exists Hepatitis B Vaccines Aged Out No long er eligible based on patient's age to complete this topic Medical Devices Implanted Type Area Machine Maintenance Technician Device Identifier Shelf Expiration Date Model / Serial / Lot Patella Asymmetric Metal Backed Tritanium Size A32 [id number] Tritanium - [id number] Implanted:Qty: 1 on 07/20/2024 by Saqib Santos J.P., MD at [facility] Implant Right: Knee CHRISTIE [id number] 04/09/2029 5552-L-32 0 / / [id number] Insert Tibial Bearing Size 4 11mm Triathlon X3 - [id number] Implanted:Qty: 1 on 07/20/2024 by Saqib Santos J.P., MD at [facility] Implant Right: Knee CHRISTIE [id number] 03/27/2029 5531-G-41 1-E / / [id number] Component Femoral Knee Cruciate Retaining Right Size 4 - [id number] Implanted:Qty: 1 on 07/20/2024 by Saqib Santos J.P., MD at [facility] Implant Right: Knee CHRISTIE [id number] 04/25/2029 5517-F-40 2 / / [id number] Baseplate Tritanium Size 4 Triathlon - [id number] Implanted:Qty: 1 on 07/20/2024 by Saqib Santos J.P., MD at [facility] Implant Right: Knee CHRISTIE [id number] 03/02/2029 5536-B-40 0 / / [id number] Component Femoral Cruciate Retaining Beaded Left Size 4 Triathlon - [id number] Implanted:Qty: 1 on 11/09/2024 by Saqib Santos J.P., MD at [facility] Implant Left: Knee CHRISTIE [id number] 01/22/2029 5517-F-40 1 / / [id number] Baseplate Tritanium Size 4 Triathlon - [id number] Implanted:Qty: 1 on 11/09/2024 by Saqib Santos J.P., MD at [facility] Implant Left: Knee CHRISTIE [id number] 08/27/2029 5536-B-40 0 / / [id number] Patella Asymmetric Metal Backed Tritanium Size A32 [id number] Tritanium - [id number] Implanted:Qty: 1 on 11/09/2024 by Saqib Santos J.P., MD at [facility] Implant Left: Knee CHRISTIE [id number] 01/21/2029 5552-L-32 0 / / [id number] Tibial Bearing Insert Size 4 9mm [facility] - [id number] Implanted:Qty: 1 on 11/09/2024 by Saqib Santos J.P., MD at [facility] Implant Left: Knee CHRISTIE [id number] 06/18/2029 5531-G-40 9-E / / [id number] Procedures * Due to [place] state law, this organization might not be sharing negative HIV tests. Procedure Name Priority Date/Time Associated Diagnosis Comments CBC AUTO DIFFERENTIAL Routine 11/10/2024 10:17 AM EST BASIC METABOLIC PANEL Routine 11/10/2024 10:17 AM EST XR KNEE 1 OR 2 VW LEFT Routine 11/09/2024 1:17 PM EST TISSUE EXAM Routine 11/09/2024 10:55 AM EST Primary osteoarthritis of left knee WI TOTAL KNEE ARTHROPLASTY 11/09/2024 9:44 AM EST Primary osteoarthritis of left knee Special Needs OSTEONICS/CHRISTIE WI AN PAIN BLOCK AT SURGEON REQUEST Routine 11/09/2024 9:40 AM EST WI AN PERIPHERAL BLOCK POST-OP PAIN Routine 11/09/2024 [...] Last 3 Months Results * Due to [place] state law, this organization might not be sharing negative HIV tests. * (ABNORMAL) CBC Auto Differential (11/10/2024 10:17 AM EST) WBC 10.2 3.8 - 10.8 10*3/uL 11/10/2024 11:23 AM EST [facility] RBC 3.78(L) 3.80 - 5.10 10*6/uL 11/10/2024 11:23 AM EST [facility] Hemoglobin 11.1(L) 11.7 - 15.5 g/dL 11/10/2024 11:23 AM EST [facility] Hematocrit 34.6(L) 35.0 - 45.0 % 11/10/2024 11:23 AM EST [facility] MCV 91.5 80.0 - 100.0 fL 11/10/2024 11:23 AM EST [facility] MCH 29.4 27.0 - 33.0 pg 11/10/2024 11:23 AM EST [facility] MCHC 32.1 32.0 - 36.0 g/dL 11/10/2024 11:23 AM EST [facility] RDW 14.0 11.0 - 15.0 % 11/10/2024 11:23 AM EST [facility] Platelets 183 140 - 400 10*3/uL 11/10/2024 11:23 AM EST [facility] MPV 9.6 7.5 - 12.5 fL 11/10/2024 11:23 AM EST [facility] Neutrophil % 87.7 % 11/10/2024 11:23 AM EST [facility] Immature Grans % 0.4 0.0 - 0.9 % 11/10/2024 11:23 AM [facility] Lymphocyte % 5.6 % 11/10/2024 11:23 AM [facility] Monocyte % 6.2 % 11/10/2024 11:23 AM [facility] Eosinophil % 0.0 % 11/10/2024 11:23 AM [facility] Basophil % 0.1 % 11/10/2024 11:23 AM [facility] Neutrophil # 8.90(H) 1.50 - 7.80 10*3/uL 11/10/2024 11:23 AM [facility] Immature Grans # 0.04(H) <=0.03 10*3/uL 11/10/2024 11:23 AM [facility] Lymphocyte # 0.60(L) 0.85 - 3.90 10*3/uL 11/10/2024 11:23 AM [facility] Monocyte # 0.60 0.20 - 0.95 10*3/uL 11/10/2024 11:23 AM [facility] Eosinophil # <0.03 0.02 - 0.50 10*3/uL 11/10/2024 11:23 AM [facility] Basophil # <0.03 0.00 - 0.20 10*3/uL 11/10/2024 11:23 AM [facility] nRBC % 0.0 /100 WBCs 11/10/2024 11:23 AM [facility] nRBC # <0.01 <0.01 10*3/uL 11/10/2024 11:23 AM [facility] Blood Structure of peripheral vein / Unknown Venipuncture / Unknown 11/10/2024 10:17 AM EST 11/10/2024 10:32 AM EST us Saqib Santos MD LAB BLOOD ORDERABLES Final R esult [facility] [address] [place] [address], * (ABNORMAL) Basic Metabolic Panel (11/10/2024 10:17 AM EST) Only the most recent of2 resultswithin the time period is included. NA 135 135 - 145 mmol/L 11/10/2024 11:10 AM EST [facility] K 4.7 3.5 - 5.3 mmol/L 11/10/2024 11:10 AM EST [facility] Cl 100 98 - 107 mmol/L 11/10/2024 11:10 AM EST [facility] CO2 25 22 - 32 mmol/L 11/10/2024 11:10 AM EST [facility] BUN 17 7 - 23 mg/dL 11/10/2024 11:10 AM EST [facility] Creatinine 1.13 0.50 - 1.20 mg/dL 11/10/2024 11:10 AM EST [facility] Glucose 256(H) 65 - 99 mg/dL 11/10/2024 11:10 AM EST [facility] Calcium 8.7 8.6 - 10.5 mg/dL 11/10/2024 11:10 AM EST [facility] Anion Gap 10 5 - 15 11/10/2024 11:10 AM EST [facility] eGFR 50(L) >=60 mL/min/1. 73m2 11/10/2024 11:10 AM EST [facility] Comment:The estimated glomer ular filtration [...] MD LAB BLOOD ORDERABLES Final R esult Performing Organization Address City/State/[facility] Co de Phone Number [address] [address], [place] * X-Ray Knee Left 1 or [...] obtain the completed interpretation. ? Workstation ID: [id number] Narrative 11/09/2024 2:58 PM EST COMPARISON: ??06/04/2024. ?? FINDINGS AND Resulting Agency Comment [id number] Procedure Note Marlena Lakhani MD - 11/09/2024 [...] possible to obtain thecompleted interpretation. Workstation ID: [id number] us Saqib Santos MD IMG XR PROCEDURES Final Resu lt * Tissue Exam (11/09/2024 10:55 AM EST) Final Diagnosis Bone and Tissue, Left Knee: - Osteoarthritis with osteophyte formation and bony eburnation. [facility] MANUAL 11/16/2024 12:54 PM EDT [employer] [facility] [employer] [facility] ANATOMIC PATHOLOGY LABORATORY at 1254 EDT Clinical History Pre-op diagnosis: Primary osteoarthritis of left knee [M17.12] [facility]UAL 11/16/2024 12:54 PM EDT [employer] [facility] [employer] [facility]OLOG[facility] LABOR[facility] Gross Description 1. Knee, [...] osteophyte formation. The margins are flat. A financial foundations representative section is submitted in cassette 1A after fixation and decalcification. [facility] MANUAL 11/16/2024 12:54 PM EDT [facility]AT[facility]IC PATHOLOG[facility] LABORATORY Gross Description User Grossing complete by Patel Sutherland on 11/09/2024 3:23 PM [facility] MANUAL 11/16/2024 12:54 PM EDT [employer] [facility] ANATOMIC PATHOLOGY LABORAT[facility] Embedded Images [facility] MAN[facility] 11/16/2024 12:54 PM EDT [employer] [facility] ANAT[facility] PATHOLOGY LABORAT[facility] Resulting Agency Case was signed out at [facility], Department of Pathology, [employer] 3 CLIA [id number] [facility] MANUAL 11/16/2024 12:54 PM EDT [facility] Report Header Surgical Pathology Report ? Case: [id number] ? Authorizing Provider: ??Saqib Santos MD ? Collected: ? 11/09/2024 1055 ? Ordering Location: ? [facility]- ?Received: ?11/09/2024 1308 ? [facility] ? Surgery ? Pathologist: ? Ali Akalin, MD ? Specimen: ?Knee, Left, LEFT KNEE BONE AND TISSUE ? 11/16/2024 12:54 PM EDT [facility] Bone Structure of left knee region / Unknown 11/09/2024 10:55 AM EST 11/09/2024 1:08 PM EST Comment:Pre-op diagnosis: Primary osteoarthritis of left knee [M17.12] us Saqib Santos MD LAB PATHOLOGY/CYTOLOGY ORDER DAREN Final Result [facility] [address] [place] [address], [place] * WI AN PERIPHERAL BLOCK POST-OP PAIN, WI AN PAIN BLOCK AT SURGEON REQUEST (11/09/2024 [...] MD Performed: anesthesiologist Requesting Attending Surgeon/Service: DR. Ashlee Odom was present during this procedure. Preanesthesic Checklist 2 patient identifiers IV checked site marked risks and benefits discussed monitors and equipment checked pre-op evaluation anesthesia consent all elements of maximal sterile barrier technique followed patient position confirmed timeout performed Peripheral Block Ultrasound #1 Probe: Linear [id number] Patient position: supine Prep: ChloraPrep Patient monitoring: [...] AM Needle - Block 1: Needle type: Angela Needle gauge: 21 G Needle length: 10 [...] aureus (MRSA) isolated. 10/31/2024 5:56 AM EST [facility] Swab Nasal structure / Unknown Non-Blood Collection / Unknown 10/29/2024 2:13 PM EST 10/29/2024 2:13 PM EST [facility] - 10/31/2024 5:56 AM EST [facility] Received Date: MICRO NUMBER: [id number] SPECIMEN QUALITY: Adequate SOURCE: SWAB NOSE STATUS: FINAL Saqib Santos MD LAB MICROBIOLOGY - GENERAL O RDERABLES Final Result [address], [place] [address], [facility] [address], [place] [address], * CBC (10/29/2024 2:04 PM EST) WBC 5.1 3.8 - 10.8 10*3/uL 10/29/2024 2:25 PM EST [facility] RBC 4.30 3.80 - 5.10 10*6/uL 10/29/2024 2:25 PM EST [facility] Hemoglobin 12.9 11.7 - 15.5 g/dL 10/29/2024 2:25 PM EST [facility] Hematocrit 40.0 35.0 - 45.0 % 10/29/2024 2:25 PM EST [facility] MCV 93.0 80.0 - 100.0 fL 10/29/2024 2:25 PM EST [facility] MCH 30.0 27.0 - 33.0 pg 10/29/2024 2:25 PM EST [facility] MCHC 32.3 32.0 - 36.0 g/dL 10/29/2024 2:25 PM EST [facility] RDW 13.9 11.0 - 15.0 % 10/29/2024 2:25 PM EST [facility] Platelets 277 140 - 400 10*3/uL 10/29/2024 2:25 PM EST [facility] MPV 9.2 7.5 - 12.5 fL 10/29/2024 2:25 PM EST [facility] Blood Structure of peripheral vein / Unknown Venipuncture / Unknown 10/29/2024 2:04 PM EST 10/29/2024 2:04 PM EST us Ashok Potter MD LAB BLOOD ORDERABLES Final Res ult [facility] [address] [place] [address], * Type and screen (10/29/2024 2:04 PM [...] Result - Final [facility] [address] [place] [address], [place] [phone] * X-Ray Knee Right 4+ Views (10/21/2024 11:30 AM EST) Anatomical Region Laterality Modality Lower Extremities, Knee Right Computed Radiography Saqib Santos MD IMG XR PROCEDURES Final Resu lt from Last 3 Months Insurance MEDICARE [facility] MEDICARE [facility] Advance Directives Documents on File Type Date Recorded Patient Vamp Liner Expl anation Health Care Proxy 07/02/2024 1:51 PM [facility] Health Care Proxy * Full Code (Latest Code Status on File) Date Activated Date Inactivated Comments 11/09/2024 12:05 PM 11/12/2024 6:25 PM * Full Code Date Activated Date Inactivated Comments 07/20/2024 12:55 PM 07/22/2024 3:45 PM Care Teams Grape Pruner Relationship Specialty Start Date End Date Chen Pop [address] [place] [id number] PCP - General Internal Medicine 05/01/24
--- OUTSIDE RECORDS SUMMARY | 2024-11-23 16:25 | XMS_ITS | Encounter Summary ---
Author Organization [facility] Address [address] [place] [address] Care Team Providers Care Rebrander Name Role Phone Chen Pop Primary Care Provider [phone] Encounter Details Date Type Department Care Team (Late st Contact Info) Description 07/06/2024 myChart Message Initial Department [address] [place] [address] Mychart, Generic Provider [address] [place] [address] Questionnaire Submission Social History Tobacco Use [...] PM EDT Follow-Up [facility] AT [address] [place] [address] Saqib Santos J.P., MD [address] [place] [address] documented as of this encounter Visit Diagnoses Not on filedocumented in this encounter Care Teams Rebrander Relationship Specialty Start Date End Date Chen Pop [address] [place] [address] PCP - General Internal Medicine 05/01/24 documented as of this encounter
--- OUTSIDE RECORDS SUMMARY | 2024-11-23 16:25 | XMS_ITS | Encounter Summary ---
Author Organization [facility] Address [address] [place] [address] Care Team Providers Care Plate Colorer Name Role Phone Chen Pop Primary Care Provider [phone] Reason for Referral * Physical Therapy (Routine) - Pending Review Specialty Diagnoses / Procedures Referred By Hakeem burns Referred To Contact Physical Therapy Diagnoses Arthritis of left knee Arthrofibrosis of knee joint, right Saqib Santos J.P., MD [address] [place] [address] Phone: tel: fax: Referral ID Status Reason Start Date Expiration Date Visits Requested Visits Authorized [id number] Pending Review Specialty Services Required 10/29/2024 04/30/2026 6 6 Reason for Visit * Reason Comments Follow-up Encounter Details Date Type Department Care Team (Late st Contact Info) Description 10/29/2024 1:00 PM EST [facility] [address] [place] [address] Saqib Santos J.P., MD [address] [place] [id number] Arthritis of left knee (Primary Dx); Arthrofibrosis of knee joint, right Social History Tobacco Use Types Packs/Day Years [...] AM EST documented as of this encounter Last Filed Vital Signs Vital Sign Reading Time Taken Comments Blood Pressure 148/94 10/29/2024 1:08 PM EST Pulse 67 10/29/2024 1:08 PM EST Temperature 36.2 ??C (97.1 ??F) 10/29/2024 1:08 PM ES T Respiratory Rate - - Oxygen Saturation - - Inhaled Oxygen Concentration - - Weight 65.8 kg (145 lb 1 oz) 10/29/2024 1:08 PM EST Height 165.1 cm (5' 5 ) 10/29/2024 1:08 PM EST Body Mass Index 24.14 10/29/2024 1:08 PM EST documented in this encounter Progress Notes * Saqib Santos MD - 10/29/2024 1:00 PM EST Images from the original note were not included. Subjective Patient ID: Lillian Copeland is a 78 y.o. female. Lillian Copeland is a 78 y.o. female who present with a history of significant right knee issues. Shepresents pre-operatively for Right Total Knee Replacement scheduled on 11/09/24. She continues to experience pain. She reports of cracking in the knee. Denies any other symptoms. No recent fever, chills or shortness of breath. The following portions of the patient's history were reviewed and updated as appropriate: allergies, current medications, past family history, past medical history, past social history, past surgicalhistory, and problem list . Left Knee The incident occurred more than 1 week ago. The incident occurred at home. There was no injury mechanism. The pain is at a severity of 5/10. Pertinent negatives include no chest pain, muscle weakness, numbness or tingling. Both knees are affected. The symptoms are aggravated by movement. She has tried rest for the symptoms. The treatment provided mild relief. The quality of the pain is described as aching. Review of Systems Constitutional: Positive for activity change. Negative for unexpected weight change. HENT: Negative for hearing loss and no hearing aids. Eyes: Negative for vision loss. Respiratory: Negative for chest tightness, cough and wheezing. Cardiovascular: Negative for chest pain. Skin: Negative for skin changes and rash. Neurological: Negative for dizziness, memory loss, numbness, tingling and weakness. Hematological: Negative for blood clots. Psychiatric/Behavioral: Negative for confusion and memory loss. All other systems reviewed and are negative. 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 (Patient not taking: Reported on 10/29/2024), Disp: , Rfl: cyclobenzaprine (FLEXERIL) 10 mg tablet, TAKE 1 TABLET (10 MG TOTAL) BY MOUTH 3 TIMES A DAY NEEDED FOR MUSCLE SPASMS FOR UP TO 10 DAYS, Disp: 30 tablet, Rfl: [address] (CYMBALTA) 60 mg capsule, Take 60 mg by mouth once a day. (Patient not taking: Reported on 10/29/2024), Disp: , Rfl: ERGOCALCIFEROL, VITAMIN D2, ORAL, Take by mouth once a day., Disp: , Rfl: gabapentin (NEURONTIN) 600 mg tablet, Take 600 mg by mouth 2 times a day., Disp: , Rfl: ixazomib (Ninlaro) 3 mg capsule, Take 3 mg by mouth once a week. 3 weeks on / 1 week off Takes on Saturday. Prescribing MD told her ok to take Saturday before surgery., Disp: , Rfl: lisinopriL (PRINIVIL,ZESTRIL) 2.5 mg tablet, Take 2.5 mg by mouth once a day., Disp: , Rfl: montelukast (SINGULAIR) 10 mg tablet, Take 10 mg by mouth nightly. (Patient not taking: Reported on10/29/2024), Disp: , Rfl: pantoprazole DR (PROTONIX) 40 mg tablet, Take 40 mg by mouth once a day., Disp: , Rfl: prochlorperazine (COMPAZINE) 5 mg tablet, Take 10 mg by mouth every 6 hours as needed for nausea orvomiting. (Patient not taking: Reported on 10/29/2024), Disp: , Rfl: rivaroxaban (XARELTO) 10 mg tablet, Take 1 tablet (10 mg total) by mouth once a day. Do not start the ASA until you have competed this prescription (Patient not taking: Reported on 10/29/2024), Disp: , Rfl: rOPINIRole XL (REQUIP XL) 6 mg tablet extended release 24 hr 24 hr tablet, Take by mouth nightly., Disp: , Rfl: traZODone (DESYREL) 100 mg tablet, Take 100 mg by mouth nightly., Disp: , Rfl: No Known Allergies Vitals: 10/29/24 1308 BP: (!) 148/94 Pulse: 67 Temp: 36.2 ??C (97.1 ??F) Weight: 65.8 kg (145 lb 1 oz) Height: 1.651 m (5' 5 ) Physical Exam Vitals and nursing note reviewed. Constitutional: Appearance: She is well-developed. She is not diaphoretic. HENT: Head: Normocephalic. Right Ear: External ear normal. Left Ear: External ear normal. Mouth/Throat: Pharynx: No oropharyngeal exudate. Eyes: General: No scleral icterus. Conjunctiva/sclera: Conjunctivae normal. Pupils: Pupils are equal, round, and reactive to light. Neck: Vascular: No JVD. Pulmonary: Effort: Pulmonary effort is normal. No respiratory distress. Breath sounds: No wheezing. Abdominal: General: Abdomen is flat. Musculoskeletal: General: Tenderness present. No swelling, deformity or signs of injury. Cervical back: Normal range of motion. Right lower leg: No edema. Left lower leg: No edema. Skin: General: Skin is warm and dry. Capillary Refill: Capillary refill takes less than 2 seconds. Coloration: Skin is not pale. Findings: No erythema. Neurological: Mental Status: She is alert and oriented to person, place, and time. Cranial Nerves: No cranial nerve deficit. Sensory: No sensory deficit. Deep Tendon Reflexes: Reflexes normal. Psychiatric: Behavior: Behavior normal. Radiology: Assessment & Plan Diagnoses and all orders for this visit: Arthritis of left knee - Ambulatory referral to Physical Therapy; Future - Methicillin Resistant Staphylococcus aureus (MRSA) Culture Screen Arthrofibrosis of knee joint, right - Ambulatory referral to Physical Therapy; Future - Methicillin Resistant Staphylococcus aureus (MRSA) Culture Screen Lillian Copeland is a 78 y.o. patient who has suffered from significant knee pain and discomfort for a considerable time. The patient has failed medical management which is included activity modification as well as intermittent use of anti-inflammatories and pain medications. X-rays have shown significant loss of the normal cartilage clear space consistent with the complaints of persistent knee pain that is not responsive to the usual conservative measures. With continued dysfunction that is now affecting everyday activities, this 78 y.o. patient has now elected to proceed with a knee arthroplasty. Due to the nature of the patient's pain, surgical options were reviewed. The alternatives, risks and benefits of surgery were discussed with the patient and the patient elected to proceed with a total knee arthroplasty or a hemiarthroplasty knee replacement, depending on which would be most appropriate based on the intraoperative findings. The patient verbalized understanding of the risks as w ell as the alternatives to surgery. These risks include but are not limited to infection, arthrofibrosis, continued pain, potential wound issues, loss of range, instability, leg length discrepancy, distal neurologic and vascular concerns. Medical risks include but are not limited to DVT/PE, lower leg swelling, bowel concerns, potential cardiovascular events, and postop confusion. Tentatively, a Uncemented Total Knee Arthroplasty is anticipated. After reviewing the risks and benefits, this 78 y.o. patient has elected to proceed with operative intervention. Overnight stay is recommended A surgical date will be confirmed. No follow-ups on file. Saqib Santos MD Portions of the record may have been created with voice recognition software. Occasional wrong-wordor [id number] substitutions may have occurred due to the inherent limitations of voice recognition software. Read the chart carefully and recognize, using context, where substitutions have occurred. documented in this encounter Plan of Treatment Upcoming Encounters Date Type Department Care Team (Late st Contact Info) Description 12/03/2024 1:15 PM EDT Follow-Up [facility] [address] [facility] [address] [place] [address] Saqib Santos J.P., MD [address] [place] [id number] Scheduled Referrals Name Type Priority Associated Diagnoses Order Schedule Ambulatory referral to Physical Therapy Outpatient Referral Routine Arthritis of left knee Arthrofibrosis of knee joint, right Expected: 10/29/2024, Expires: 04/28/2025 documented as of this encounter Procedures * Due to [place] state law, this organization might not be sharing negative HIV tests. Procedure Name Priority Date/Time Associated Diagnosis Comments METHICILLIN RESISTANT STAPHYLOCOCCUS AUREUS (MRSA) CULTURE SCREEN Routine 10/29/2024 2:13 PM EST Arthritis of left knee Arthrofibrosis of knee joint, right documented in this encounter Results * Due to [facility] law, this organization might not be sharing negative HIV tests. * Methicillin Resistant Staphylococcus aureus (MRSA) Culture Screen (10/29/2024 2:13 PM EST) Culture No methicillin resistant Staphylococcus aureus (MRSA) isolated. 10/31/2024 5:56 AM EST [facility] Swab Nasal structure / Unknown Non-Blood Collection / Unknown 10/29/2024 2:13 PM EST 10/29/2024 2:13 PM EST Narrative [facility] - 10/31/2024 5:56 AM EST [facility] Received Date:[id number] MICRO NUMBER: [id number] SPECIMEN QUALITY: Adequate SOURCE: SWAB NOSE STATUS: FINAL Saqib Santos MD LAB MICROBIOLOGY - GENERAL O RDERABLES Final Result [facility] [address] [facility] [address], [place] [address], [place] [phone] [facility] [address], [place] [address], [place] [phone] documented in this encounter Visit Diagnoses Diagnosis Arthritis of left knee- Primary Arthrofibrosis of knee joint, right documented in this encounter Care Teams Plate Colorer Relationship Specialty Start Date End Date Chen Pop [address] [place], [place] [id number] PCP - General Internal Medicine 05/01/24 documented as of this encounter
--- OUTSIDE RECORDS SUMMARY | 2024-11-23 16:25 | XMS_ITS | Encounter Summary ---
Author Organization [facility] Address [address] [place] [address] Care Team Providers Care Cash Accountant Name Role Phone Lorraine Popanna Primary Care Provider [phone] Reason for Visit * Auth/Cert (Routine) Specialty Diagnoses / Procedures Referred By Contac t Referred To Contact Diagnoses Primary osteoarthritis of left knee Primary osteoarthritis of left knee [M17.12] Procedures MA TOTAL KNEE ARTHROPLASTY ARTHROPLASTY, KNEE, CONDYLE AND PLATEAU; MEDIAL AND LATERAL COMPARTMENTS WITH OR WITHOUT PATELLA RESURFACING (TOTAL KNEE ARTHROPLASTY) Saqib Santos J.P., MD [address] [place] [address] Phone: tel: fax: Referral ID Status Reason Start Date Expiration Date Visits Re quested Visits Authorized [id number] 10/22/2024 99 99 Encounter Details Date Type Department Care Team (Late st Contact Info) Description 11/09/2024 9:59 AM EST Anesthesia Event [facility] Day Surgery [address] [place] [address] Jimmy Liu MD [address] [place] [id number] Anesthesia Record Procedure Summary Procedure Name Responsible Anesthesiologist Anesthesia Start Time Anesthesia Stop Time ARTHROPLASTY, KNEE, CONDYLE AND PLATEAU; MEDIAL AND LATERAL COMPARTMENTS WITH OR WITHOUT PATELLA RESURFACING (TOTAL KNEE ARTHROPLASTY) (Left: Knee) Jimmy Liu MD 11/09/24 0959 11/09/24 1226 Events Date Time Event Comment 11/09/2024 0955 0959 In Room 0959 An Start 0959 An Start Data 1003 Quick Note Temp dot (skin) recorded manually 1005 An Induction The patient was reevaluated immediately before induction of anesthesia. 1011 An Intubation 1014 Anesthesia Ready 1037 An Tourn Inflated 275 mmHg 1037 Proc Start 1155 Proc Fin 1158 An Tourn Deflated 1217 An Extubation 1220 an stop data 1220 Out of Room 1225 Handoff to RN I completed my handoff to the receiving nurse during which we: 1. Identified the patient 2. Identified the responsible provider 3. Reviewed the pertinent medical history 4. Discussed the surgical course 5. Reviewed intra-op anesthesia management and issues during anesthesia 6. Set expectations for post-procedure period 7. Allowed opportunity for questions and acknowledgement of understanding. 1226 An Stop Meds Name Total midazolam (VERSED) 1 mg/mL injection luis ution 2 mg fentaNYL (SUBLIMAZE) injection 350 mcg ondansetron (ZOFRAN) injection 4 mg propofol (DIPRIVAN) bolus 200 mg dexamethasone (DECADRON) injection 4 mg/ mL 4 mg rocuronium (ZEMURON) 10 mg/mL IV solutio n 30 mg ePHEDrine sulfate PF injection 10 mg ropivacaine PF (NAROPIN) 0.5% (5 mg/mL) injection 20 mL tranexamic acid (TXA) infusion (Mini-Bag Plus) 1,000 mg 2 g succinylcholine (ANECTINE) 200 mg/10 mL IV syringe 100 mg acetaminophen (OFIRMEV) IV 1,000 mg HYDROmorphone (DILAUDID) 1 mg sugammadex (BRIDION) injection 200 mg lactated Ringer's (LR) infusion 1,300 mL sodium chloride 0.9% (NS) premix infusio n 500 mL * Agents Name Set FiO2 (O2%) O2 Flow (L/min) * Blood No blood administrations on file. Lines, Drains, and Airways Type Details Placement Removal Incision / Procedural Site 07/20/24; Knee; Anterior, Right 07/20/24 0000 by Brittaney Hernandez RN Incision / Procedural Site 11/09/24; 1019; Knee; Anterior, Right 11/09/24 1019 by Primo Dempsey RN Incision / Procedural Site 11/09/24; 1037; Knee; Anterior, Left 11/09/24 1037 by Primo Dempsey RN Peripheral IV Placement Date: 11/09/24; Placement Time: 075; Catheter Size: 20 G; Orientation: Distal, Left, Posterior; Location: Forearm; Site Prep: Chlorhexidine; Inserted by: Steffany; Insertion Attempts: 1; Patient Tolerance: Tolerated well; Removal Date: 11/10/24; Removal Time: 0611/09/24 0759 by Sophia Durand RN 11/10/24 0631 by Ashok Welch RN ETT Placement Date 11/09; Placement Time 1011; Mask Ventilation Not attempted; Technique Direct laryngoscopy; Single Lumen Tube Size 7 mm; Cuffed Yes; Blade Size 3; Measured from Gums; Secured at (cm) 21 cm; Location Oral; Grade View Grade IIa; Insertion Attempts 1; Placement Verification Auscultation, Capnometry, Palpation of cuff, Symmetrical chest wall movement; Comments Positive sniff Positive selleck; Removal Date 11/09/24; Removal Time 1217 11/09/24 1011 by Anyi Chan CRNA 11/09/24 1217 by Anyi Chan CRNA documented in this encounter Social History Tobacco Use Types Packs/Day Years [...] money to buy more. Never true 11/10/19 Within the past 12 months, t he [...] Sign Reading Time Taken Comments Blood Pressure 176/96 11/09/2024 12:18 PM EST Pulse 101 11/09/2024 12:19 PM EST Temperature 36 ??C (96.8 ??F) 11/09/2024 12:03 PM EST Respiratory Rate 0 11/09/2024 12:19 PM EST Oxygen Saturation 100% 11/09/2024 12:19 PM EST Inhaled Oxygen Concentration - - Weight - - Height - - Body Mass Index - - documented in this encounter OR Notes * Anesthesia Postprocedure Evaluation - Jimmy Liu MD - 11/09/2024 12:52 PM EST Anesthesia Post-procedure Evaluation Patient: Lillian Copeland : 1945 Date of Procedure: 11/09/2024 Procedure Summary Date: 11/09/24 Room / Location: [facility] OR Anesthesia Start: 958 Anesthesia Stop: 1225 Procedure: ARTHROPLASTY, KNEE, CONDYLE AND PLATEAU; MEDIAL AND LATERAL COMPARTMENTS WITH OR WITHOUTPATELLA RESURFACING (TOTAL KNEE ARTHROPLASTY) (Left: Knee) Diagnosis: Primary osteoarthritis of left knee (Primary osteoarthritis of left knee [M17.12]) Surgeons: Saqib Santos MD Responsible Provider: Jimmy Liu MD Anesthesia Type: regional, general ASA Status: 3 Anesthesia Type: regional, general Last vitals Vitals Value Taken Time BP 152/79 11/09/24 1245 Temp 36.6 ??C (97.8 ??F) 11/09/24 1227 Pulse 68 11/09/24 1245 Resp 20 11/09/24 1245 SpO2 100 % 11/09/24 1245 Anesthesia Post Evaluation Patient location during evaluation: PACU Patient participation: complete - patient participated Level of consciousness: awake and alert Pain management: adequate Anesthetic complications: no Nausea and Vomiting: no Cardiovascular status: acceptable Respiratory status: acceptable Hydration status: acceptable No notable events documented. Jimmy Liu MD Date: 11/09/2024 Time: 12:52 PM * Anesthesia Procedure Notes - Jimmy Liu MD - 11/09/2024 9:50 AM EST Associated Order(s): Peripheral Block Patient: Lillian Copeland : 1945 Peripheral Nerve Block Patient Location at Time of Procedure: holding area Start Date/Time: 11/09/2024 9:40 AM End Date/Time: 11/09/2024 9:45 AM Reason for block: at surgeon's request and post-op pain management Anesthesia Staff Authorized by: Jimmy Liu MD Performed by: Jimmy Liu MDAnesthesiologist: Jimmy Liu MD Performed: anesthesiologist Requesting Attending Surgeon/Service: DR. Ashlee Odom was present during this procedure. Preanesthesic Checklist 2 patient identifiers IV checked site marked risks and benefits discussed monitors and equipment checked pre-op evaluation anesthesia consent all elements of maximal sterile barrier technique followed patient position confirmed timeout performed Peripheral Block Ultrasound #1 Probe: Linear [id number] Patient position: supine Prep: ChloraPrep Patient monitoring: [...] (5 mg/mL) injection - peripheral nerve block, LeftAbductor Canal 20 mL - 11/09/2024 9:40:00 AM Needle - Block 1: Needle type: Paanna mariek Needle gauge: 21 G Needle length: 10 cm Needle localization: ultrasound guidance Assessment Injection assessment: negative aspiration for heme, no paresthesia on injection and local visualized surrounding nerve on ultrasound Paresthesia pain: none Jimmy Liu MD Date: 11/09/2024 Time: 9:50 AM * Anesthesia Preprocedure Evaluation - Jimmy Liu MD - 11/09/2024 9:31 AM EST Images from the original note were not included. Anesthesia Pre-procedure Evaluation Patient: Lillian Copeland : 1945 Date of Procedure: 11/09/2024 Preoperative Diagnosis: Pre-op Diagnosis * Primary osteoarthritis of left knee [M17.12] ARTHROPLASTY, KNEE, CONDYLE AND PLATEAU; MEDIAL AND LATERAL COMPARTMENTS WITH OR WITHOUT PATELLA RESURFACING (TOTAL KNEE ARTHROPLASTY): 35351 (CPT??) Surgeon(s): Saqib Santos MD Past Medical / Past Surgical: Past Medical History: Diagnosis Date Achalasia surgical procedure for correction of same Anxiety Cancer (CMS/HCC) (HCC) right breast Depression GERD (gastroesophageal reflux disease) Hiatal hernia Hypertension Multiple myeloma (HCC) Past Surgical History: Procedure Laterality Date ANKLE FRACTURE SURGERY Left BREAST LUMPECTOMY Right times two CATARACT EXTRACTION W/ INTRAOCULAR LENS IMPLANT Bilateral SECTION, CLASSIC times two JOINT REPLACEMENT Right hip MA TOTAL KNEE ARTHROPLASTY Right 07/20/2024 Procedure: ARTHROPLASTY, KNEE, CONDYLE AND PLATEAU; MEDIAL AND LATERAL COMPARTMENTS WITH OR WITHOUTPATELLA RESURFACING (TOTAL KNEE ARTHROPLASTY); Surgeon: Saqib Santos MD; Location: [facility]; Service: Orthopedics SALPINGOOPHORECTOMY Bilateral VARICOSE VEIN SURGERY Bilateral Social / Family Histories: Vaping Questions Responses Vaping Use Never User Social History Tobacco Use Smoking status: Never Smokeless tobacco: Never Substance Use Topics Alcohol use: Yes Comment: once monthly Social History Substance and Sexual Activity Drug Use Never No family history on file. OB History No obstetric history on file. Prior to Admission medications Medication Sig Start Date End Date Taking? Authorizing Provider acyclovir (ZOVIRAX) 400 mg tablet Take 400 mg by mouth 2 times a day. Yes Unknown Provider, aspirin 81 mg EC tablet Take by mouth once a day. Yes Unknown Provider, calcium carbonate (CALCIUM 500 ORAL) Take 1,000 mg by mouth once a day. Patient not taking: Reported on 07/20/2024 Unknown Provider, DULoxetine DR (CYMBALTA) 60 mg capsule Take 60 mg by mouth once a day. Yes Unknown Provider, ERGOCALCIFEROL, VITAMIN D2, ORAL Take by mouth once a day. Yes Unknown Provider, gabapentin (NEURONTIN) 600 mg tablet Take 600 mg by mouth 2 times a day. Yes Unknown Provider, ixazomib (Ninlaro) 3 mg capsule Take 3 mg by mouth once a week. 3 weeks on / 1 week off Takes on Saturday. Prescribing MD told her ok to take Saturday before surgery. Unknown Provider, L.acid/L.casei/B.bif/B.elza/FOS (PROBIOTIC BLEND ORAL) Take by mouth once a day. Yes Unknown Provider, lisinopriL (PRINIVIL,ZESTRIL) 2.5 mg tablet Take 2.5 mg by mouth once a day. Yes Unknown Provider, montelukast (SINGULAIR) 10 mg tablet Take 10 mg by mouth nightly. Yes Unknown Provider, pantoprazole DR (PROTONIX) 40 mg tablet Take 40 mg by mouth once a day. Yes Unknown Provider, prochlorperazine (COMPAZINE) 5 mg tablet Take 10 mg by mouth every 6 hours as needed for nausea or vomiting. Yes Unknown Provider, rOPINIRole XL (REQUIP XL) 6 mg tablet extended release 24 hr 24 hr tablet Take by mouth nightly. Yes Unknown Provider, traZODone (DESYREL) 100 mg tablet Take 100 mg by mouth nightly. Yes Unknown Provider, Allergies: Patient has no known allergies. Vitals / Weight: Blood pressure 139/84, pulse 73, temperature 37.2 ??C (98.9 ??F), temperature source Temporal, resp. rate 18, last menstrual period 09/09/2023, SpO2 96%. Recent Labs: Latest Ref Rng & Units 10/29/2024 2:04 PM CBC WBC 3.8 - 10.8 10*3/uL 5.1 Hgb 11.7 - 15.5 g/dL 12.9 Hct 35.0 - 45.0 % 40.0 MCV 80.0 - 100.0 fL 93.0 Plts 140 - 400 10*3/uL 277 Latest Ref Rng & Units 10/29/2024 2:04 PM Basic Metabolic Panel Sodium 135 - 145 mmol/L 138 Potassium 3.5 - 5.3 mmol/L 4.6 Chloride 98 - 107 mmol/L 102 Carbon Dioxide 22 - 32 mmol/L 28 Glucose 65 - 99 mg/dL 108 Creatinine 0.50 - 1.20 mg/dL 1.08 Calcium 8.6 - 10.5 mg/dL 9.3 EGFR >=60 mL/min/1.73m2 53 Recent EKG: Patient's Hospital Problems: Patient Active Problem List Diagnosis Primary localized osteoarthritis of right knee Anesthesia Evaluation Patient summary reviewed, nursing notes reviewed and all labs reviewed. Anesthesia History: no previous history of anesthetic complications Pulmonary (+) sleep apnea on suspected no marijuana use ROS comment: Denies any fevers, has intermittent cough, non productive, coughing improving, minor congestion, improved (-) COPD, asthma, shortness of breath, recent URI, smoker Cardiovascular Exercise tolerance: >4 METS (+) hypertension, hyperlipidemia , , , , , , , (-) past AR, CAD, dysrhythmias, angina, MCCRARY, murmur ECG reviewed ROS comment: Walks, denies c/p or sob Neuro/Psych (+) psychiatric history, depression, anxiety, No ETOH (-) seizures, TIA Comments: Trigeminal neuralgia Meningioma s/p surgical intervention, Nerve damage in face after dental procedure Gets nerve pain in face down into lips GI/Hepatic/Renal (+) hiatal hernia, GERD well controlled, heartburn, chronic renal disease, CKD, esophageal disease,achalasia Comments: Achalasia, s/p sphincterotomy Symptoms improved, symptoms approx 1/m at this time 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 Pulmonary Breath sounds clear to auscultation no decreased breath sounds no wheezes no rales Abdominal - normal exam Anesthesia Plan ASA 3 Anesthesia Type: regional and general NPO status verified Patient request GA and nerve block just like her surgery 08/02 Use of blood products discussed with patient who consented to blood products. Pre-Anesthesia Review by Attending Anesthesiologist: Jimmy Liu MD Date: 11/09/2024 Time: 9:31 AM I have interviewed and examined the patient and conducted a pre-anesthesia evaluation that includedreview of the complete medical history, notation of a relevant patient problem list and review of all pertinent preoperative studies, laboratory testing and specialty consultations. An assessment of anesthetic risk including ASA classification and an anesthetic plan have been documented. Original Author: Jimmy Liu MD documented in this encounter Plan of Treatment Upcoming Encounters Date Type Department Care Team (Late st Contact Info) Description 12/03/2024 1:15 PM EDT Follow-Up [facility] AT [address] [facility] [address] [place] [address] Saqib Santos J.P., MD [address] [place] [address] documented as of this encounter Procedures * Due to [facility] law, this organization might not be sharing negative HIV tests. Procedure Name Priority Date/Time Associated Diagnosis Comments MA AN PAIN BLOCK AT SURGEON REQUEST Routine 11/09/2024 9:40 AM EST MA AN PERIPHERAL BLOCK POST-OP PAIN Routine 11/09/2024 9:40 AM EST documented in this encounter Results * Due to [facility] law, this organization might not be sharing negative HIV tests. * MA AN PERIPHERAL BLOCK POST-OP PAIN, MA AN PAIN BLOCK AT SURGEON REQUEST (11/09/2024 [...] MD Performed: anesthesiologist Requesting Attending Surgeon/Service: DR. Ponger I was present during this procedure. Preanesthesic Checklist 2 patient identifiers IV checked site marked risks and benefits discussed monitors and equipment checked pre-op evaluation anesthesia consent all elements of maximal sterile barrier technique followed patient position confirmed timeout performed Peripheral Block Ultrasound #1 Probe: Linear [id number] Patient position: supine Prep: ChloraPrep Patient monitoring: [...] MD ANESTHESIA ORDERABLES Edited Result - Final documented in this encounter Visit Diagnoses Not on filedocumented in this encounter Administered Medications Inactive Administered Medications - up to 3 most recent administrations Medication Order MAR Action Action Date Dose Rate Site acetaminophen (OFIRMEV) in 100 mL IVPB premix intravenous, Administer over 15 Minutes, As needed, Starting on Sat11/09/24 at 1055, Until Sat11/09/24 at 1226, Anesthesia Intra-op Given 11/09/2024 10:55 AM EST 1,000 mg dexamethasone (DECADRON) injection intravenous, As needed, Starting on Sat11/09/24 at 1033, Until Sat11/09/24 at 1226, Anesthesia Intra-op Given 11/09/2024 10:33 AM EST 4 mg ePHEDrine sulfate (AKOVAZ) injection intravenous, As needed, Starting on Sat11/09/24 at 1037, Until Sat11/09/24 at 1226, Anesthesia Intra-op Given 11/09/2024 10:37 AM EST 10 mg fentaNYL (PF) injection epidural, As needed, Starting on Sat11/09/24 at 0938, Until Sat11/09/24 at 1226, Anesthesia Intra-op Given 11/09/2024 10:58 AM EST 100 mcg Given 11/09/2024 10:42 AM EST 50 mcg Given 11/09/2024 10:21 AM EST 100 mcg HYDROmorphone (DILAUDID) injection intravenous, As needed, Starting on Sat11/09/24 at 1105, Until Sat11/09/24 at 1226, Anesthesia Intra-op Given 11/09/2024 11:16 AM EST 0.6 mg Given 11/09/2024 11:05 AM EST 0.4 mg lactated Ringer's (LR) premix infusion intravenous, Continuous PRN, Starting on Sat11/09/24 at 0952, Until Sat11/09/24 at 1226, Anesthesia Intra-op New Bag/Syringe 11/09/2024 11:32 AM EST New Bag/Syringe 11/09/2024 9:52 AM EST midazolam (VERSED) injection intravenous, As needed, Starting on Sat11/09/24 at 0940, Until Sat11/09/24 at 1226, Anesthesia Intra-op Given 11/09/2024 9:40 AM EST 1 mg Given 11/09/2024 9:38 AM EST 1 mg ondansetron (ZOFRAN) injection intravenous, As needed, Starting on Sat11/09/24 at 1033, Until Sat11/09/24 at 1226, Anesthesia Intra-op Given 11/09/2024 10:33 AM EST 4 mg propofoL (DIPRIVAN) injection intravenous, As needed, Starting on Sat11/09/24 at 1005, Until Sat11/09/24 at 1226, Anesthesia Intra-op Given 11/09/2024 10:05 AM EST 200 mg rocuronium (ZEMURON) injection intravenous, As needed, Starting on Sat11/09/24 at 1021, Until Sat11/09/24 at 1226, Anesthesia Intra-op Given 11/09/2024 10:21 AM EST 30 mg ropivacaine PF (NAROPIN) 0.5% (5 mg/mL) injection peripheral nerve block, One-time injection, Starting on Sat11/09/24 at 0940, Until Sat11/09/24 at 0940, Anesthesia Intra-op Given 11/09/2024 9:40 AM EST 20 mL Left Abductor Canal sodium chloride 0.9% (NS) premix infusion intravenous, at 100 mL/hr, Continuous, Starting on Sat11/09/24 at 0800, Until Camila 11/12/24 at 1820, Pre-op New Bag/Syringe 11/09/2024 9:35 AM EST succinylcholine (ANECTINE) injection intravenous, As needed, Starting on Sat11/09/24 at 1005, Until Sat11/09/24 at 1226, Anesthesia Intra-op Given 11/09/2024 10:05 AM EST 100 mg sugammadex (BRIDION) injection intravenous, As needed, Starting on Sat11/09/24 at 1156, Until Sat11/09/24 at 1226, Anesthesia Intra-op Given 11/09/2024 11:56 AM EST 200 mg tranexamic acid (TXA) infusion (Mini-Bag Plus) 1,000 mg intravenous, Administer over 8 Hours, Continuous PRN, Starting on Sat11/09/24 at 1030, Until Sat11/09/24 at 1226, Anesthesia Intra-op New Bag/Syringe 11/09/2024 11:26 AM EST 1 g New Bag/Syringe 11/09/2024 10:30 AM EST 1 g documented in this encounter Care Teams Cash Accountant Relationship Specialty Start Date End Date Chen Pop [address] [place] [address] PCP - General Internal Medicine 05/01/24 documented as of this encounter
--- OUTSIDE RECORDS SUMMARY | 2024-11-23 16:25 | XMS_ITS | Encounter Summary ---
Author Organization [facility] Address [address] [place] [address] Care Team Providers Care Pairer Inspector Name Role Phone Chen Pop Primary Care Provider [phone] Encounter Details Date Type Department Care Team (Late st Contact Info) Description 07/06/2024 myChart Message Initial Department [address] [place] [id number] Mychart, Generic Provider [address] [place] [phone] Questionnaire Submission Social History Tobacco Use [...] PM EDT Follow-Up [facility] AT [address] [place] [address] Saqib Santos J.P., MD [address] [place] [address] documented as of this encounter Visit Diagnoses Not on filedocumented in this encounter Care Teams Pairer Inspector Relationship Specialty Start Date End Date Chen Pop [address] [place] [address] PCP - General Internal Medicine 05/01/24 documented as of this encounter
--- OUTSIDE RECORDS SUMMARY | 2024-11-23 16:25 | XMS_ITS | Encounter Summary ---
Author Organization [facility] Address [address] [place] [address] Care Team Providers Care Preschool Head Teacher Name Role Phone Lorraine Popanna Primary Care Provider [phone] Encounter Details Date Type Department Care Team (Late st Contact Info) Description 10/27/2024 PiCloud Message Initial Department [address] [place] [address] Mychart, Generic Provider [place] [address] Questionnaire Submission Social History Tobacco [...] PM EDT Follow-Up [facility] AT [address] [facility] [place] [address] Saqib Santos J.P., MD [address] [place] [address] documented as of this encounter Visit Diagnoses Not on filedocumented in this encounter Care Teams Preschool Head Teacher Relationship Specialty Start Date End Date Donn Chen [address] [place] [address] PCP - General Internal Medicine 05/01/24 documented as of this encounter
--- OUTSIDE RECORDS SUMMARY | 2024-11-23 16:25 | XMS_ITS | Encounter Summary ---
Author Organization [facility] Address [address] [place] [address] Care Team Providers Care Recycling Worker Name Role Phone Lorraine Popanna Primary Care Provider [phone] Encounter Details Date Type Department Care Team (Late st Contact Info) Description 10/27/2024 Mingleverse Message Initial Department [address] [place] [address] Mychart, Generic Provider [facility] [place] [address] Questionnaire Submission Social History Tobacco [...] PM EDT Follow-Up [facility] AT [address] [facility] [place] [address] Saqib Santos J.P., MD [address] [place] [address] documented as of this encounter Visit Diagnoses Not on filedocumented in this encounter Care Teams Recycling Worker Relationship Specialty Start Date End Date Donn Chen [address] [place] [address] PCP - General Internal Medicine 05/01/24 documented as of this encounter
--- OUTSIDE RECORDS SUMMARY | 2024-11-23 16:26 | XMS_ITS | Encounter Summary ---
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 Name Role Phone Chen Pop Primary Care Provider [phone] Reason for Visit * Auth/Cert (Routine) Specialty Diagnoses / Procedures Referred By Hakeem t Referred To Contact Diagnoses Primary osteoarthritis of left knee Primary osteoarthritis of left knee [M17.12] Procedures MI TOTAL KNEE ARTHROPLASTY ARTHROPLASTY, KNEE, CONDYLE AND PLATEAU; MEDIAL AND LATERAL COMPARTMENTS WITH OR WITHOUT PATELLA RESURFACING (TOTAL KNEE ARTHROPLASTY) Saqib Santos J.P., MD [address] [place] [id number] Phone: tel: fax: Referral ID Status Reason Start Date Expiration Date Visits Re quested Visits Authorized [id number] 10/22/2024 99 99 Encounter Details Date Type Department Care Team (Late st Contact Info) Description 11/09/2024 9:40 AM EST - 11/09/2024 12:25 PM EST Surgery [facility] [address] [place] [address] Saqib Santos J.P., MD [address] [place] [id number] ARTHROPLASTY, KNEE, CONDYLE AND PLATEAU; MEDIAL AND LATERAL COMPARTMENTS WITH OR WITHOUT PATELLA RESURFACING (TOTAL KNEE ARTHROPLASTY) [13623 (CPT??)] Social History Tobacco Use Types Packs/Day Years [...] Sign Reading Time Taken Comments Blood Pressure 139/84 11/09/2024 7:55 AM EST Pulse 73 11/09/2024 7:55 AM EST Temperature 37.2 ??C (98.9 ??F) 11/09/2024 7:55 AM ES T Respiratory Rate 18 11/09/2024 7:55 AM EST Oxygen Saturation 96% 11/09/2024 7:55 AM EST Inhaled Oxygen Concentration - - Weight - - Height - - Body Mass Index - - documented in this encounter Discharge Summaries * Saqib Santos MD - 11/11/2024 8:04 AM EST Images from the original note were not included. DISCHARGE SUMMARY [facility] DISCHARGE INFORMATION: Date and Time of Admission: 11/09/2024 12:05 PM Date of Discharge: 11/12/2024 DISCHARGE DIAGNOSIS: Problem List Active Problems * (Principal) Primary osteoarthritis of left knee ATTENDING PHYSICIAN ON DISCHARGE: Attending Provider: Saqib Santos MD [phone] FOLLOW-UPS AND SCHEDULED APPOINTMENTS: Future Appointments Date Time Provider Department Center 12/03/2024 1:15 PM Saqib Santos MD [id number] None PENDING LABS: . None DISCHARGE MEDICATIONS: Discharge Medication list: Discharge Medications Unreviewed Medications Sig Disp Refill acyclovir 400 mg tablet Commonly known as: ZOVIRAX Take 400 mg by mouth 2 times a day. 0 * aspirin 81 mg EC tablet Take by mouth once a day. 0 * aspirin 81 mg EC tablet Take 1 tablet (81 mg total) by mouth 2 times daily after meals. 0 CALCIUM 500 ORAL Take 1,000 mg by mouth once a day. 0 cyclobenzaprine 10 mg tablet Commonly known as: FLEXERIL TAKE 1 TABLET (10 MG TOTAL) BY MOUTH 3 TIMES A DAY NEEDED FOR MUSCLE SPASMS FOR UP TO 10 DAYS [address] 60 mg capsule Commonly known as: CYMBALTA Take 60 mg by mouth once a day. 0 ERGOCALCIFEROL (VITAMIN D2) ORAL Take by mouth once a day. 0 gabapentin 600 mg tablet Commonly known as: NEURONTIN Take 600 mg by mouth 2 times a day. 0 lisinopriL 2.5 mg tablet Commonly known as: PRINIVIL,ZESTRIL Take 2.5 mg by mouth once a day. 0 montelukast 10 mg tablet Commonly known as: SINGULAIR Take 10 mg by mouth nightly. 0 Ninlaro 3 mg capsule Generic drug: ixazomib Take 3 mg by mouth once a week. 3 weeks on / 1 week off Takes on Saturday. Prescribing MD told her ok to take Saturday before surgery. [address] 40 mg tablet Commonly known as: PROTONIX Take 40 mg by mouth once a day. 0 prochlorperazine 5 mg tablet Commonly known as: COMPAZINE Take 10 mg by mouth every 6 hours as needed for nausea or vomiting. 0 rivaroxaban 10 mg tablet Commonly known as: XARELTO Take 1 tablet (10 mg total) by mouth once a day. Do not start the ASA until you have competed this prescription 0 rOPINIRole XL 6 mg tablet extended release 24 hr 24 hr tablet Commonly known as: REQUIP XL Take by mouth nightly. 0 traZODone 100 mg tablet Commonly known as: DESYREL Take 100 mg by mouth nightly. 0 * There are duplicate medications prescribed to the patient ALLERGIES: Patient has no known allergies. 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 Anxiety Cancer (CMS/HCC) (HCC) right breast Depression GERD (gastroesophageal reflux disease) Hiatal hernia Hypertension Multiple myeloma (HCC) PAST SURGICAL HISTORY: Past Surgical History: Procedure Laterality Date ANKLE FRACTURE SURGERY Left BREAST LUMPECTOMY Right times two CATARACT EXTRACTION W/ INTRAOCULAR LENS IMPLANT Bilateral SECTION, CLASSIC times two JOINT REPLACEMENT Right hip MI TOTAL KNEE ARTHROPLASTY Right 07/20/2024 Procedure: ARTHROPLASTY, KNEE, CONDYLE AND PLATEAU; MEDIAL AND LATERAL COMPARTMENTS WITH OR WITHOUTPATELLA RESURFACING (TOTAL KNEE ARTHROPLASTY); Surgeon: Saqib Santos MD; Location: [facility]; Service: Orthopedics MI TOTAL KNEE ARTHROPLASTY Left 11/09/2024 Procedure: ARTHROPLASTY, KNEE, CONDYLE AND PLATEAU; MEDIAL AND LATERAL COMPARTMENTS WITH OR WITHOUTPATELLA RESURFACING (TOTAL KNEE ARTHROPLASTY); Surgeon: Saqib Santos MD; Location: [facility]; Service: Orthopedics SALPINGOOPHORECTOMY Bilateral VARICOSE VEIN SURGERY Bilateral PAST FAMILY HISTORY: No family history on file. PAST SOCIAL HISTORY: Social History[1] HOSPITAL COURSE: You were hospitalized because: Severe Knee Discomfort Significant Procedures and/or Tests that you Underwent and Results: Knee Arthroplasty Your discharge diagnosis is: Knee Osteoarthritis Summary: You were admitted with complaint of severe knee discomfort with x-ray showing severe knee osteoarthritis. You underwent an uncomplicated knee replacement. You have been with physical therapy, ambulating at first around your bed, progressing to ambulating in the hallway, however not yet able to successfully negotiate stairs. You are now being discharged to a rehab facility to continue with your recovery. Fortunately, your postop course has been otherwise unremarkable. Your eventual discharge plan will include home visits by therapist and if needed nurses to ensure you continue to progress without issue. DISCHARGE DAY INFORMATION: DISCHARGE PHYSICAL EXAM: Vital signs: Blood pressure 97/61, pulse 82, temperature 36.7 ??C (98.1 ??F), temperature source Oral, resp. rate 20, height 1.651 m (5' 5 ), weight 65.8 kg (145 lb), last menstrual period 09/09/2023, SpO2 (!) 91%, not currently . General appearance: Alert, In no acute distress and Ox3 HEENT: Normocephalic, atraumatic Neck: Supple Back: No CVA tenderness Lungs: Comfortable Extremities: Limited range of motion Secondary to immobilization device, pain and Joints affected: knee Skin: No rash or ulcers Neurologic: Alert and oriented x 3 LAB AND RADIOLOGY: LABS: Pertinent labs include hct / lytes IMAGING: Pertinent Imaging results include Implant well positioned GLOBAL PLAN OF CARE CONSULTS: None PROCEDURES: Procedures Performed During Hospitalization Procedure(s): ARTHROPLASTY, KNEE, CONDYLE AND PLATEAU; MEDIAL AND LATERAL COMPARTMENTS WITH OR WITHOUT PATELLA RESURFACING (TOTAL KNEE ARTHROPLASTY) Wound: Clean and dry CONDITION: Good ADVANCED CARE PLANNING Code Status: Full Code Medical Decision Maker: I saw and evaluated the patient on the date of discharge. I have reviewed, updated, and verified this note's content Signature: Saqib Santos MD Electronic Signature [1] Social History Socioeconomic History Marital status: Spouse name: Not on file Number of children: Not on file Years of education: Not on file Highest education level: Not on file Occupational History Not on file Tobacco Use Smoking status: Never Smokeless tobacco: Never Vaping Use Vaping status: Never Used Substance and Sexual Activity Alcohol use: Yes Comment: once monthly Drug use: Never Sexual activity: Defer Other Topics Concern Not on file Social History Narrative Not on file documented in this encounter Discharge Instructions * Discharge Instructions* Saqib Santos MD - 11/11/2024 8:03 AM EST Images from the original note were not included. Dermabond Prineo Wound Dressing Caring for your wound The DERMABOND?? PRINEO?? Skin Closure System has been applied. We have chosen to use DERMABOND PRINEO System to close your wound DERMABOND PRINEO System is the combination of a mesh and a liquid adhesive that allows the incision or wound to be held together during the healing process. DERMABOND PRINEO System should remain in place until, together, until adequate healing has occurred, which is usually anywhere between 10-21 days. In most cases, DERMABOND PRINEO System is easily removed with little or no discomfort. In the event that you notice that DERMABOND PRINEO System is beginning to loosen or may be coming off, you may trim of the no longer adhered portion of the dressing The following information is provided to help you understand how to care for your incision. You should always follow the instructions that may differ from the below suggestions Things to know Bathing or showering As you have been directed, you may occasionally and briefly wet your incision or wound that was treated with DERMABOND PRINEO System in the shower or bath. Do not soak or scrub your incision or wound. Do not swim or soak your incision or wound in water. After showering or bathing, gently blot your incision or wound dry with a soft towel. If a dry protective dressing is being used over DERMABOND PRINEO System, it should be replaced with a fresh, dry protective dressing after showering or bathingas directed by your health care practitioner. Care should also be taken so that any tape that may be part of the dry protective dressing does not come into contact with DERMABOND PRINEO System because when the tape is removed, it may also remove DERMABOND PRINEO System. Wound healing If you experience any redness, swelling, discomfort, warmth or pus, contact our office and, together, we will discuss how your incision or wound is healing and take the necessary steps to address anyissues. Exercise Do not engage in strenuous exercise that may cause additional stress on your incision or wound. Follow your our guidance about when you can return to your normal activities. Removing DERMABOND PRINEO System Typically, at your followup visit we will determine when the healing process of your incision or wound has been completed and DERMABOND PRINEO System is ready to be removed, which is usually between 10 to 14 days. When healing is complete, you can carefully peel off the DERMABOND PRINEO System. Prior to removal, do not scratch, rub or pick at the mesh. This may loosen the adhesive and mesh beforethe skin is healed. In the event that you notice that DERMABOND PRINEO System is beginning to loosen and may be coming off or comes off the skin/ wound, you may trim away the no longer adherent portion of the dressing. Ointments or Liquids Topical ointments, liquids or any other product (other than dry bandages) should not be applied to the incision while DERMABOND PRINEO System is in place. These may loosen DERMABOND PRINEO System from the skin before it has completely healed. For complete directions on the use of DERMABOND PRINEO System, please refer to Instructions for that can be found on the [employer] web site (www.[employer].com) If you have any specific questions or concerns about DERMABOND PRINEO System please our office ([phone]) Saqib Santos MD [facility] [address], [address] [address] [place], [address] [address] [place] [address] (Office) At Home Instructions, Total or Partial Joint Replacement After surgery you can expect gradual improvement over the coming weeks to months. You should expectless pain, stiffness and swelling, and a more independent lifestyle. Returning to work depends on how quickly you heal and how demanding your job may be on a new joint. After you are discharged from the hospital or rehab facility, there will be a few weeks before you return for a follow-up visit with our office. During this period, it is critical in your rehabilitation and for positive long-term results from your surgery. In general, patients do very well after discharge. However, it's important that you contact our office if any of the following occur: You have increasing pain in the operative site. There is new or increased redness or warmth since discharge There is new or increased drainage from your incision. The operative site is increasingly swollen. Your calf becomes swollen, tender, warm, or reddened. You have a temperature above 101 for more than 24 hours. For total knee replacement, your ability to flex (bend your knee) has decreased or remains the sameas when you were discharged from the hospital. Managing Your Medication at Home Typically, you will need to take two medications at home after your surgery. One is a narcotic painmedication that you take as needed to help make you comfortable. This medication can cause nausea, so take it with food. You will also be required to take Aspirin 81mg twice daily for 4 weeks after you have finished the XARELTO. If you are unable to take Aspirin or you have a medical condition thatrequires a different medication for thinning the blood you may be given a prescription for Lovenox or Coumadin. Take these as directed. If you have an allergic reaction, please call the office. We recommend that you take Colace 100mg twice daily which is a stool softner to prevent constipation. Alyssa lax can be used with the Colace if you are still having constipation which can be taken twice dailyas needed. We encourage you to take your pain medication as you begin to feel pain. Follow the instructions onthe prescription label. Remember to take your pain medication before activity and bedtime. As your pain decreases each day after surgery, we encourage you to begin taking less medication. These medications can be addictive, the less you require, the better it will be for you in the days and weeks to come. Pain medication may cause nausea. If this happens, decrease the amount you are taking or stop and contact our office. If you need additional pain medication, please contact our office. If you need more pain medication, you must give a three day advance notice before you run out medication. Please plan ahead, especially for holiday weekends. Also remember: You are not permitted to drive a car while taking narcotic pain medication. It may take several days to have a bowel movement. Anesthesia and pain medication often cause constipation. Drink plenty of fluids and eat whole grains, fruits, and vegetables. A stool softener or laxative can help bowel function return to normal. Please do not hesitate to call your surgeon's office with any questions or concerns. Incision Care Your incision will be covered with a dressing. The dressing placed at surgery is water tolerant. You may shower safely with that dressing in place. If there is any drainage from the incision, we recommend the dressing be changed frequently. If you have any questions about the dressing, feel free tocontact our office. As long as there is no drainage from the incision, you may shower with the incis ion no longer covered. You may begin showering once the wound is dry and is no longer draining. Pat it with warm water andsoap, rinse and pat dry. Typically, your incision is closed with dissolvable sutures that are not visible. Directly over the incision is a topical glue that helps seal your incision. You may see remnants of this glue, called Dermabond, when the dressing is removed. The remnants of this topically adhesive will come off in the days to weeks to come. It only has a purpose in the first few days aftersurgery, while your body is first trying to heal your incision. If required, and sutures or alanis, if used, will be removed in the office at you first post-op visit around two weeks after surgery. Some redness and warmth around the incision is normal. Contact our office if you notice any increase in drainage, redness, warmth, or have a fever above 101 degrees Fahrenheit for more than 24 hours. These may be signs that your incision may be infected.We will most likely have you come to the office for a visit and examination. Walker, Crutches, Cane Use your assistive devices for balance as instructed by your surgeon or therapist. By your first post-op visit with your surgeon, you may have already improved and changed from using a walker or crutches to a cane (as recommended by your surgeon or therapist). Activity You may bear weight as tolerated on the operative leg. You will need a walker or crutches for two to three weeks and possibly a cane for a few more weeks. You may also apply ice to your hip four to five times daily for 20 minutes at a time for discomfort and swelling. You may walk as much as you are comfortable. The First 48 hours at Home No matter how much you prepared for your homecoming, it will be an adjustment. You will likely experience anxiety and question whether you were discharged too early. This is a normal feeling, so relax and focus on your recovery. Expect a visit from the physical therapist or occupational therapist within 48 hours of discharge. Activity Continue your exercise program and increase activity gradually; your goal is to regain strength andfunction. Follow all therapy instructions. Resume activity as you gain strength and confidence. For total knee replacement, swelling of the knee or leg is common with an abrupt increase in activity. If this occurs, elevate the leg above the level of your heart (place pillows under the calf, notbehind the knee joint), and apply ice directly to the knee. You may continue with elevation and icing as needed to help decrease swelling and discomfort. Continued exercise at this early stage is important to achieve the best outcome with your new jointreplacement. Based on your needs, your therapy may be continued at home or in an outpatient settingof your choice. You will be given an exercise program to continue exercising at home. Do not sit for longer than 30 to 45 minutes at a time. Use chairs with arms. You may nap if you aretired, but do not stay in bed all day. Frequent, short walks--either indoors or outdoors-- are the elliott to a successful recovery. You may experience discomfort in your operated hip or knee, and you may have difficulty sleeping atnight. This is part of the recovery process. Getting up and moving around relieves some of the discomfort. You should climb stairs with support. Climb one step at a time - ???good?? leg up - ???bad?? leg down. Hold on to a railing, if available. You may be a passenger in a car, but you should sit on a firm cushion or folded blanket to avoid sitting too low. See the instructions at the end of this guide for specific information for getting inand out of the car. You may not drive before your first post-op visit. The decision to resume driving your vehicle is made by your surgeon. Lifting Do not lift anything heavy after surgery. Avoid lifting objects in a position where you need to squat or bend. Avoid climbing ladders. Your surgeon will let you know when it is OK to lift heavy objects. Weeks 1 to 6 at Home Do not hesitate to call our office regardless any issues you may be having. We have already scheduled a postop follow-up visit in our office. If for some reason you cannot recall the time of the date, feel free to contact the office for the information. If you are being discharged to rehab, we encourage you to come in a week after your discharged home. During the first six weeks after discharge, you should be making progress week by week. Most patients are eager to report their progress at follow-up visits and are ready to move to the next level intheir recovery. Most patients can accomplish the following during the first six weeks after total joint replacement: Walk without help on a level surface with the use of walker, crutches, or cane as appropriate. Climb stairs as tolerated. Get in and out of bed without help. Get in and out of a chair or car without help. Shower using a tub bench once alanis are removed - as long as there are no issues with the incision. Resume your activities of daily living including cooking, light chores, walking, and going outside the home. You should certainly be awake and moving around most of the day. Some patients return to work before the first follow-up visit. This is approved on an individual basis and should be discussed with your surgeon. Icing and Elevation After a joint replacement, swelling is expected. Swelling can cause increased pain and limit your range of motion, so taking steps to reduce the swelling is important. Continue using ice packs or some form of cold therapy to help reduce swelling. For knee replacement, you may use pillows to elevate; however, it's important to elevate the entireleg, down to the ankle. Never put a pillow only behind your knee so your knee is in a bent position. Your knee should be straight when elevated. Sexual Activity After Joint Replacement Many people worry about resuming sexual activity after a joint replacement. Hip - Generally, it is safe to resume sexual activity six weeks after surgery as long as there is not significant pain. Initially, being on your back will be the safest and most comfortable positioning. As your hip heals, you will be able to take a more active role. Please discuss any specific concerns with your physical therapist or advance practice nurse.. . Knee - Sexual activity may resume when you are comfortable. Talk with your physical therapist or occupational therapist. Diet Resume your diet as tolerated and include vegetables, fruits, and proteins (such as meats, fish, chicken, nuts, and eggs) to promote healing. Also, remember to have adequate fluid intake (at least 8 glasses a day). It is common after surgery to lack an appetite. This may be the result of anesthesiaand the medications. Proper nutrition is needed for healing. During the healing process, the body needs increased amounts of calories, protein, vitamins A and C, and sometimes, the mineral zinc. Eat a variety of foods toget all the calories, proteins, vitamins, and minerals you need. If you have been told to follow a specific diet, please follow it. What you eat can help heal your wounds and prevent infection and potential complications. If you're not eating well after surgery, contact your healthcare provider about nutritional supplements. Weeks 6 to 12 at Home This period after joint replacement is a time of continued improvement. You will probably notice anin- crease in energy, a desire to do more activities, and a noticeable improvement in your new joint. Please keep in mind that every patient is different and will improve at different pace. If you are not happy with the pace of your recovery, please contact your surgeon's office to discuss your conc erns. Walking After your six-week follow-up visit, you will likely start using a cane to walk and move about. Usethe cane until you return for your 12-week follow-up visit. Walk with the cane as much as you want as long as you are comfortable. Back to Work Many patients return to work after the six-week follow-up visit. Tips to remember for returning to work include: Avoid heavy lifting after you return to work. Avoid standing or sitting for long periods of time. Avoid activities such as frequently climbing stairs or climbing ladders. Avoid kneeling, stooping, bending forward or any position that puts the new joint under extreme strain. Expect a period of adjustment. Most people return to work with few problems. However, you may find the first several days very tiring. Give yourself time to adjust to work again and gradually this should improve. Continue Exercise Program Continue to exercise. Many patients stop working with physical therapy during this time. However, exercising is the most important activity to increase strength and leads to the best outcome. Work orhome activities should not replace your exercise program. Comply with all Restrictions Although you are feeling back to normal, it is important to understand and follow the restrictions your surgeon discussed with you. Any restrictions are to protect your operative hip or knee as you continue to heal. If you want to achieve a successful outcome, be patient and follow your surgeon's instructions. Three Month Follow-Up You will return to our office for another follow-up visit about 3 months after surgery. We encourage you to resume normal activities both inside and outside the home. Helpful tips: Be realistic and pace yourself and gradually resume activities. Increase your walking distance and activities, but not all at once. Keep a cane in the trunk of your car to aid with discomfort, or uneven or icy ground. Enjoy the benefits of your total joint. Continue to call with any questions or concerns. Our staff is always available to assist you. Six Months and Future Follow-Up Visits Your next appointment is six months after surgery, then once a year unless told otherwise. These appointments give you a chance to discuss any concerns about your total joint replacement or other joints in which symptoms may develop. Lifelong Fitness The goal of your surgery is to give you a new joint that allows you to perform everyday activities without pain. However, this joint is not indestructible. Avoid sports or other activities that may put stress on the joint until discussed with your surgeon. Stay as active as you can after recoveringfrom your surgery. Ask your surgeon or therapist about activities and exercises that are right for you. It may or may not be appropriate to return to the exercise routine that you used before surgery. An increase in body weight puts stress on the hip, so try to maintain a healthy weight. Potential Complications Blood Clots Blood clots are potential complications following hip or knee joint replacement surgery. A blood clot from your leg can travel to your lungs and cause serious health complications. Preventing a bloodclot from forming is the best treatment method. You can lower your risk of developing a blood clot by: Exercising and staying active (moving about). Taking blood thinners, such as aspirin, warfarin (Coumadin??), Lovenox, or other drugs. Wearing support stockings. Some foods and supplements may alter the effectiveness of blood-thinning medications, such as foodswith high amounts of vitamin K. Talk to your surgeon about certain foods to avoid while on this medication. The symptoms of a blood clot include: Pain and / or redness in your calf and leg unrelated to your incision. Increased swelling of your thigh, calf, ankle, or foot. Shortness of breath and chest pain or pain when breathing. .. If you develop any of these symptoms, please contact our office but we encourage you to go to the nearest emergency department or call 911. Surgical Site Infection A surgical site infection (SSI) is an infection that occurs after surgery in the part of the body where the surgery took place. Most patients who have surgery do not develop an infection. Some common symptoms of surgical site infection are: Increased redness and pain around the area where you had surgery Any drainage, in particular, cloudy fluid from your surgical wound If any of these symptoms occur contact our office, we will most likely have been present for an evaluation. You can also report to the emergency room for an evaluation. Preventing Infection Preventing infection is extremely important for the rest of your life. Your new joint is artificialand does not have your body's natural protection against infection. It is possible to develop an infection in your artificial joint if antibiotics are not taken before certain procedures. These procedures include: Dental procedures Colonoscopy/Sigmoidoscopy Cystoscopy/Genitourinary instrumentation Prostate and/or bladder surgery Kidney surgery Cardiac catheterization Barium enema Endoscopy Before having any procedures, let the physician or dentist doing the procedure know you have an implant. He or she should provide antibiotics. Total Knee and Total Hip Replacement Exercises These can be performed before and after surgery GENERAL INFORMATION It's important to keep your body strong and flexible both before and after your joint replacement surgery. Following the exercise program presented below will help speed recovery and make doing everyday tasks easier and less painful during your rehabilitation period. Circulation Exercise: Ankle Pumps Lie on your back. Gently point and pull ankle of your surgical leg by pumping foot up and down. Repeat 10 times (1 set) Do two sets a day Circulation Exercise: Quadriceps Sets Lie on your back with your legs straight. Tighten your thigh muscle by pushing your knee down into the bed. Do NOT hold your breath. Repeat 10 times (1 set) Do two sets a day Circulation Exercise: Gluteal Sets (buttock) Lie on your back with your legs straight. Squeeze buttock together and tighten buttocks muscles. Repeat 10 times (1 set) Do two sets a day Short Arc Quads Lie on your back with a towel rolled under your knee. Slowly straighten your surgical knee by lifting your foot up while keeping your thigh on the roll. Repeat 10 times (1 set) Do two sets a day Heel Slides Lie on your back. Bend your surgical knee by sliding your heel toward your buttocks. Repeat 10 times (1 set) Do two sets a day You may be instructed to pull on a bed sheet hooked around your foot to help you slide your heel. Hip ABD/Adduction Lie on your back. Keep your knee straight and toes pointing toward the ceiling. Slide your surgical leg out to the side and back to the center. Do NOT allow your surgical leg to cross the midline. Repeat 10 times (1 set) Do two sets a day Note: After surgery for hip replacement ask your surgeon or therapist about this exercise. ADDITIONAL JOINT REPLACEMENT EXERCISES Sitting Knee Flexion Sit with a towel under your surgical leg(s). Your feet should be flat on the floor. Slide one foot back, bending your surgical knee. Hold for 5 seconds, then slide your foot forward. Repeat 10 times (1 set) Do two sets a day Seated Knee Extension Straighten your surgical leg. Repeat 10 times (1 set) Do two sets a day Hip Abduction, Standing While standing, raise your leg out to the side. Keep your leg straight and keep your toes pointed forward the entire time. Use your arm if needed for balance and safety. Repeat 10 times (1 set) Do two sets a day Hip Extension, Standing While standing, move your leg back. Use your arms if needed for balance and safety. Repeat 10 times (1 set) Do two sets a day Single Leg Stance Stand on one leg and maintain your balance. Repeat 10 times (1 set) ADDITIONAL KNEE REPLACEMENT EXERCISE Straight Leg Raise Lie on your back with your non-surgical leg bent. Tighten your knee on surgical leg and slowly liftyour leg to the level of the bent knee. Keep your back flat on the surface. Repeat 10 times (1 set) Do two sets a day Upper Body Conditioning/Strengthening Exercises Before undergoing joint surgery, it's important to prepare for your rehabilitation. The following exercise program should be started 4 to 6 weeks before surgery. These exercises should be done daily if possible or at least five times per week. Conditioning/Strengthening Exercises Move shoulders forward in a circular motion for a count of 10. Then, move shoulders backward in a circular motion for a count of 10. Repeat 10 times (one set). DO two sets per day. Pinch shoulder blades together by pulling arms back toward each other. Remember to keep elbows straight. Hold for 5 seconds, then relax. Repeat 10 times (one set). DO two sets per day. Stand with one arm bent to 90 degrees at side. Slowly bend elbow and raise the weight toward the shoulder. Remember to keep the palm up. Repeat with the opposite arm. Movements should be slow and controlled. Repeat 10 times (one set). DO two sets per day. Stand or sit and bring arm up so elbow is near the ear. Support the arm that is holding the weight with the other hand by the elbow. Now slowly straighten the arm then bend it. Repeat using the opposite arm. Repeat 10 times (one set). DO two sets per day. Keep elbow straight and raise arm above head. Very slowly return arm to side. This exercise may be performed sitting or standing. Repeat with opposite arm. Repeat 10 times (one set). DO two sets per day. Sitting with back against chair, scoot to the edge of the chair, then scoot back. Remember to use both arms during this activity. Repeat 10 times (one set). DO two sets per day. Sitting on the edge of the chair, place hands on arms of the chair and push body up out of chair. Lower body slowly back into the chair. Remember to use both arms during this activity. Repeat 10 times (one set). DO two sets per day. How to Get In and Out of a Car After a Total Joint Replacement 1. The front passenger car seat should be pushed all the way back before you enter the car. 2. Have the dairy truck driver park on a flat surface and/or near the driveway ramp. 3. Walk toward car using the appropriate walking device. 4. When close to the car, turn and begin backing up to the front passenger car seat. Never step into the car! 5. Placing a plastic bag on a fabric seat may make moving easier. 6. Reach with your right hand and hold the door frame or headrest. Place your left hand on the car seat or dashboard. 7. Slowly lower yourself to the car seat. 8. Slide yourself back onto the car seat. 9. Swing your legs into the car. Try to move one leg at a time. Keep your toes pointed upward. 10. Do NOT cross your legs! 11. Reverse these steps to get out of a car. When taking extended car rides, make sure to take breaks every 30 to 45 minutes. Get out of car andwalk/stand for a few minutes so you don't become too stiff. Generally, driving is not recommended for 6 to 8 weeks after surgery. Please contact your doctor tofind out when it is safe to resume driving. . documented in this encounter Medications at Time of Discharge acyclovir (ZOVIRAX) 400 mg tablet Take 400 mg by mouth 2 times a day. aspirin 81 mg EC tablet Take by mouth once a day. aspirin 81 mg EC tablet Take 1 tablet (81 mg total) by mouth 2 times daily after meals. 11/12/2024 calcium carbonate (CALCIUM 500 ORAL) Take 1,000 mg by mouth once a day. DULoxetine DR (CYMBALTA) 60 mg capsule Take 60 mg by mouth once a day. ERGOCALCIFEROL, VITAMIN D2, ORAL Take by mouth once a day. gabapentin (NEURONTIN) 600 mg tablet Take 600 mg by mouth 2 times a day. ixazomib (Ninlaro) 3 mg capsule Take 3 mg by mouth once a week. 3 weeks on / 1 week off Takes on Saturday. Prescribing MD told her ok to take Saturday before surgery. lisinopriL (PRINIVIL,ZESTRI L) 2.5 mg tablet Take 2.5 mg by mouth once a day. montelukast (SINGULAIR) 10 mg tablet Take 10 mg by mouth nightly. pantoprazole DR (PROTONIX) 40 mg tablet Take 40 mg by mouth once a day. prochlorperazine (COMPAZINE) 5 mg tablet Take 10 mg by mouth every 6 hours as needed for nausea or vomiting. rivaroxaban (XARELTO) 10 mg tablet Take 1 tablet (10 mg total) by mouth once a day. Do not start the ASA until you have competed this prescription 07/22/2024 rivaroxaban (XARELTO) 10 mg tablet Take 1 tablet (10 mg total) by mouth once a day. Do not start the ASA until you have competed this prescription 11/12/2024 rOPINIRole XL (REQUIP XL) 6 mg tablet extended release 24 hr 24 hr tablet Take by mouth nightly. traZODone (DESYREL) 100 mg tablet Take 100 mg by mouth nightly. oxyCODONE-acetam inophen (Percocet) 5-325 mg tablet Take 2 tablets by mouth every 6 hours as needed for pain for up to 6 days. Limit to a total 3 grams of Tylenol / Acetaminophen per day from all sources 40 tablet 11/12/2024 documented as of this encounter Progress Notes * Saqib Santos MD - 11/11/2024 7:59 AM EST Progress Note Subjective CHIEF COMPLAINT: Knee Discomfort. 24 HOUR INTERVAL HISTORY: Up with PT. Awaiting a rehab bed. C/O [place] MEDICATIONS: All medications reviewed. Objective Temp: [36.4 ??C (97.5 ??F)-37.3 ??C (99.1 ??F)] 36.7 ??C (98.1 ??F) Heart Rate: [73-91] 82 Resp: [16-20] 20 BP: (97-154)/(61-78) 97/61 SpO2: [91 %-97 %] 91 % Wound: clean and dry Physical Exam PHYSICAL EXAM: Result Review Results from last 24 hours Lab Units 11/10/24 1017 SODIUM mmol/L 135 BUN mg/dL 17 CREATININE mg/dL 1.13 GLUCOSE mg/dL 256* Results from last 24 hours Lab Units 11/10/24 1017 WBC 10*3/uL 10.2 HEMOGLOBIN g/dL 11.1* HEMATOCRIT % 34.6* PLATELETS 10*3/uL 183 Results from last 24 hours Lab Units 11/10/24 1017 WBC 10*3/uL 10.2 HEMOGLOBIN g/dL 11.1* HEMATOCRIT % 34.6* PLATELETS 10*3/uL 183 Results from last 24 hours Lab Units 11/10/24 1017 SODIUM mmol/L 135 BUN mg/dL 17 CREATININE mg/dL 1.13 GLUCOSE mg/dL 256* Imaging/Other Studies I have personally reviewed the patient's imaging results Assessment & Plan Principal Problem: Primary osteoarthritis of left knee No new Assessment & Plan notes have been filed under this hospital service since the last note was generated. Service: Orthopedics GLOBAL PLAN OF CARE FLUIDS AND NUTRITION FLUIDS: Current Fluids/Electrolytes/TPN Stop sodium chloride 0.9% (NS) premix infusion intravenous, Continuous -- NUTRITION: Diet, Adult Regular VTE PROPHYLAXIS Rivaroxaban Sequential Compression Device Ordered ADVANCED CARE PLANNING Code Status: Full Code Medical Decision Maker: I have reviewed, updated, and verified this note's content. Signature: Saqib Santos MD Electronic Signature * Saqib Santos MD - 11/10/2024 7:57 AM EST Progress Note Subjective CHIEF COMPLAINT: Knee Discomfort 24 HOUR INTERVAL HISTORY: Up with PT, slow but expected progress. MEDICATIONS: All medications reviewed. Objective Temp: [36.4 ??C (97.5 ??F)-37.3 ??C (99.1 ??F)] 36.7 ??C (98.1 ??F) Heart Rate: [73-91] 82 Resp: [16-20] 20 BP: (97-154)/(61-78) 97/61 SpO2: [91 %-97 %] 91 % Wound: Clean and dry Physical Exam Physical Exam Vitals and nursing note reviewed. [...] wheezing. Abdominal: General: Abdomen is flat. Musculoskeletal: Cervical back: Normal range of motion. Skin: General: Skin is warm and dry. Capillary Refill: Capillary refill takes less than 2 seconds. Coloration: Skin is not pale. Findings: No erythema. Neurological: Mental Status: She is alert and oriented to person, place, and time. Cranial Nerves: No cranial nerve deficit. Sensory: No sensory deficit. Deep Tendon Reflexes: Reflexes normal. Psychiatric: Behavior: Behavior normal. Result Review Results from last 24 hours Lab Units 11/10/24 1017 SODIUM mmol/L 135 BUN mg/dL 17 CREATININE mg/dL 1.13 GLUCOSE mg/dL 256* Results from last 24 hours Lab Units 11/10/24 1017 WBC 10*3/uL 10.2 HEMOGLOBIN g/dL 11.1* HEMATOCRIT % 34.6* PLATELETS 10*3/uL 183 Results from last 24 hours Lab Units 11/10/24 1017 WBC 10*3/uL 10.2 HEMOGLOBIN g/dL 11.1* HEMATOCRIT % 34.6* PLATELETS 10*3/uL 183 Results from last 24 hours Lab Units 11/10/24 1017 SODIUM mmol/L 135 BUN mg/dL 17 CREATININE mg/dL 1.13 GLUCOSE mg/dL 256* Imaging/Other Studies I have personally reviewed the patient's imaging results Assessment & Plan Principal Problem: Primary osteoarthritis of left knee No new Assessment & Plan notes have been filed under this hospital service since the last note was generated. Service: Orthopedics GLOBAL PLAN OF CARE FLUIDS AND NUTRITION FLUIDS: Current Fluids/Electrolytes/TPN Stop sodium chloride 0.9% (NS) premix infusion intravenous, Continuous -- NUTRITION: Diet, Adult Regular VTE PROPHYLAXIS Rivaroxaban Sequential Compression Device Ordered ADVANCED CARE PLANNING Code Status: Full Code Medical Decision Maker: I have reviewed, updated, and verified this note's content. Signature: Saqib Santos MD Electronic Signature documented in this encounter H&P Notes * Saqib Santos MD - 11/09/2024 9:31 AM EST H&P Update: I have reviewed the history and physical and performed a pertinent physical examination on Lillian Copeland. No changes have occurred. Lillian Copeland : 1945 CSN: [id number] Source Note - Saqib Santos MD - 10/29/2024 1:00 PM [...] created with voice recognition software. Occasional wrong-wordor [id number] substitutions may have occurred due to the inherent limitations of voice recognition software. Read the chart carefully and recognize, using context, where substitutions have occurred. documented in this encounter Miscellaneous Notes * Plan of Care - Jill Corea RN - 11/12/2024 3:58 PM EST Discharge patient per order Patient discharging to [facility]. VSS, A&Ox4, patient adequate for discharge. PIV removed. All patient belongings returned to patient. Patient medicated for pain for transport, see MAR. Patient transported by ambulance stretcher. * Plan of Care - Kenya Hendrickson - 11/12/2024 2:52 PM EST Case Management - Message received from [facility] reporting patient will need to bring her Ninlaro medication with her. Patient reports she is due to take this medication on 11/20 and her son will bring it in to facility if she is still there when it is due. [facility] updated via [place]. * Plan of Care - Jill Corea RN - 11/12/2024 2:43 PM EST RN report called to accepting nurse at [facility] [phone] * Plan of Care - Kenya Hendrickson - 11/12/2024 2:34 PM EST Discharge Note: Pertinent Clinical and Medical Clearance: Patient cleared medically by MD to discharge to IRF. Met with patient and spoke with her son Ethan on the phone. They are in agreement with plan. Final Discharge Plan: Discharge to [address] Handoff # [phone] provided to nursing via secure chat. 3. Transportation: [employer] arranged for stretcher transportation for next available. * Plan of Care - Aime De PTA - 11/12/2024 12:18 PM EST Problem: Adult Inpatient Plan of Care Goal: Plan of Care Review Outcome: Ongoing (interventions implemented as appropriate) Flowsheets (Taken 11/12/2024 1217) Plan of Care Reviewed With: patient Plan of Care Summary: Cont with PT recommendation for an inpatient facility Progress: improving Physical Therapy Physical Therapy Treatment Note Patient Name: Lillian Copeland Treatment Received On : 11/12/2024 Plan of Care Review Plan of Care Reviewed With: patient Comments : pt presents supine in bed. Pt performed supine therex then transferred supine to sit with Gato x 1 and cues for movement of L LE only. Sit to stand with ctgA x 1 and extra time pt amb 30 ft x 2 to BR and back to bedside chair with RW and ctgA x 1 with cues for sequencing. Transfer on/offtoilet with Gato x 1 pt has difficulty lowering herself to the chair or toilet. Pt returned to bedside chair for lunch. Call light and needs in reach and comfort measures taken. 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 Anxiety Cancer (CMS/HCC) (HCC) right breast Depression GERD (gastroesophageal reflux disease) Hiatal hernia Hypertension Multiple myeloma ([facility]) Past Surgical History: Procedure Laterality Date ANKLE FRACTURE SURGERY Left BREAST LUMPECTOMY Right times two CATARACT EXTRACTION W/ INTRAOCULAR LENS IMPLANT Bilateral SECTION, CLASSIC times two JOINT REPLACEMENT Right hip MI TOTAL KNEE ARTHROPLASTY Right 07/20/2024 Procedure: ARTHROPLASTY, KNEE, CONDYLE AND PLATEAU; MEDIAL AND LATERAL COMPARTMENTS WITH OR WITHOUTPATELLA RESURFACING (TOTAL KNEE ARTHROPLASTY); Surgeon: Saqib Santos MD; Location: [facility]; Service: Orthopedics MI TOTAL KNEE ARTHROPLASTY Left 11/09/2024 Procedure: ARTHROPLASTY, KNEE, CONDYLE AND PLATEAU; MEDIAL AND LATERAL COMPARTMENTS WITH OR WITHOUTPATELLA RESURFACING (TOTAL KNEE ARTHROPLASTY); Surgeon: Saqbi Santos MD; Location: [facility] OR; Service: Orthopedics SALPINGOOPHORECTOMY Bilateral VARICOSE VEIN SURGERY Bilateral Treatment: Default Flowsheet Data (Last 12 Hours) Adult PT Evaluation/Treatment Row Name 11/12/24 1204 General Information Patient Profile Review yes General Observations of Patient supine in bed resting Row Name 11/12/24 1208 Bed Mobility Assessment/Treatment Assistive Device (Bed Mobility) hospital bed;bedrail [id number] [place] (Bed Mobility) minimum assist (75% patient effort);verbal cues required;set up required;HOB elevated Safety Issues (Bed Mobility) decreased use of legs for bridging/pushing Impairments (Bed Mobility) pain;ROM (range of motion) decreased;strength decreased Row Name 11/12/24 1208 Transfer Assessment/Treatment Sit-Stand [place] level (Transfers) contact guard assist;verbal cues required;set up required Stand-Sit [place] level(Transfers) minimum assist (75% patient effort);verbal cues required;set up required [place]-Gvr Assistive Device (Transfers) gait belt;walker, rolling Toilet [place] Level (Transfers) minimum assist (75% patient effort);verbal cues required Toilet Assistive Device (Transfers) commode, over toilet;gait belt;grab bar;walker, rolling Toilet Transfer Type stand step Maintain Weight Bearing Status (Transfers) able to maintain weight bearing status Safety Issues (Transfers) balance decreased during turns;step length decreased;weight-shifting ability decreased;sequencing ability decreased Impairments (Transfers) balance impaired;pain;ROM (range of motion) decreased;strength decreased Comment (Transfers) pt has difficulty lowering herself to the toilet or chair Row Name 11/12/24 1208 Gait Assessment/Treatment [place] (Gait) contact guard assist;verbal cues required Assistive Device (Gait) gait belt;walker, rolling Distance in Feet (Gait) 30 ft x 2 Gait Pattern Analysis 3-point gait Gait Deviations jf, decreased;flexed knee, left;flexed knee, right;foot flat, left;foot flat, right;knee buckling, left;step length, decreased;stance time, decreased, left Maintain Weight Bearing Status (Gait) able to maintain weight bearing status Safety Issues (Gait) balance decreased during turns;sequencing ability decreased;step length decreased;weight-shifting ability decreased Impairments (Gait) balance impaired;pain;ROM (range of motion) decreased;strength decreased Row Name 11/12/24 1208 Therapeutic Exercise Lower Extremity Therapeutic Exercise and ROM ankle pumps, left;gluteal sets;heel slides, left;hip abduction, left;hip adduction, left;quad sets, left;SLR (straight leg raise), left;heel slides, right Exercise Type (Therapeutic Exercise) AAROM (active assistive range of motion);AROM (active range ofmotion) Position (Therapeutic Exercise) supine Sets/Reps (Therapeutic Exercise) 10 Row Name 11/12/24 1208 Rehab Eval/Treat-Additional Details Document Type Therapy treatment note PT Treatment Received On 11/12/24 PT Goal Summary (all recorded) PT Rehab Goal Summary Row Name 11/09/24 1700 Physical Therapy Goals Bed Mobility Goal Selection (PT) bed mobility, PT goal 1 Transfer Goal Selection (PT) transfer, PT goal 1 Gait Training Goal Selection (PT) gait training, PT goal 1 Stairs Goal Selection (PT) stairs, PT goal 1 Row Name 11/09/24 17011/10/24119911/10/24 1300 11/12/24 1200 Bed Mobility Goal 1 (PT) Activity (Bed Mobility Goal 1, PT) rolling to left;rolling to right;scooting;sit to supine/supine to sit -- -- -- [place] Level/Cues Needed (Bed Mobility Goal 1, PT) independent -- -- -- Assitive Devices (Bed Mobility Goal 1, PT) none -- -- -- Time Frame (Bed Mobility Goal 1, PT) 2 days -- -- -- Outcomes (Bed Mobility Goal 1, PT) -- goal ongoing goal ongoing goal ongoing Row Name 11/09/24 17011/10/24119911/10/24 1300 11/12/24 1200 Transfer Goal 1 (PT) Activity (Transfer Goal 1, PT) jgz-uk-mivvl/wcaga-gs-pje;rzm-jp-kvnve/vocqe-de-fqe -- -- -- [place] Level/Cues Needed (Transfer Goal 1, PT) contact guard assist -- -- -- Assitive Devices (Transfer Goal 1, PT) walker, rolling -- -- -- Time Frame (Transfer Goal 1, PT) 2 days -- -- -- Outcome (Transfer Goal 1, PT) -- goal ongoing goal ongoing goal ongoing Row Name 11/09/24169911/10/24 1200 11/10/24 1300 11/12/24 1200 Gait Training Goal 1 (PT) Activity (Gait Training Goal 1, PT) gait (walking locomotion);diminish gait deviation;forward stepping;improve balance and speed;increase endurance/gait distance;normalize weight shifts -- -- -- [place] Level (Gait Training Goal 1, PT) contact guard assist -- -- -- Assistive Devices (Gait Training Goal 1, PT) walker, rolling;gait belt -- -- -- Distance (Gait Goal 1, PT) 100 ft -- -- -- Time Frame (Gait Training Goal 1, PT) 3 days -- -- -- Outcome (Gait Training Goal 1, PT) -- goal ongoing goal ongoing goal ongoing Row Name 11/09/24 1700 Stairs Goal 1 (PT) Activity (Stairs Goal 1, PT) ascending stairs;descending stairs;using handrail, left;onah-ji-zdxj [place] Level/Cues Needed (Stairs Goal 1, PT) supervision required Assistive Devices (Stairs Goal 1, PT) handrail;cane, straight Number of Stairs (Stairs Goal 1, PT) 4 Time Frame (Stairs Goal 1, PT) 3 days Row Name 11/09/24 1700 Music Pastor Goal (PT) Statement (Alf Goal, PT) Return to PLOF [place] Level (Music Pastor Goal, PT) modified independence Time Frame (Music Pastor Goal, PT) 2 weeks Aime De PTA Licensure: HYPERBARIC TECH, [place]: [id number] * Plan of Care - Dayan Ibarra OT - 11/12/2024 10:45 AM EST Images from the original note were not included. Occupational Therapy Occupational Therapy Treatment Note Patient Name: Lillian Copeland Date of Evaluation: 11/12/2024 Plan of Care Review Plan of Care Reviewed With: patient Comments:PT encountered sitting EOB half way through MRADL with nursing aid. Pt encouraged to participate in donning clean slipper socks for ambulation to bathroom for toileting. Pt able to don R sock with mod I no AE. Dependent to don L sock. Sit to stand transfer from low bedside chair with min Aand extra time. CGA for STS from raised commode. CGA with RW 15 ft x2 to/from bathroom. CGA toileting hygiene in standing with no UE support. Fair static standing balance to wash/dry hands. BP sitting prior to ambulation to bathroom 93/60. BP sitting following return from bathroom 113/67. Patient's response to therapy: I'm a little dizzy but feeling better. Patient Active Problem List Diagnosis Primary localized osteoarthritis of right knee Primary osteoarthritis of left knee Past Medical History: Diagnosis Date Achalasia surgical procedure for correction of same Anxiety Cancer (CMS/HCC) (HCC) right breast Depression GERD (gastroesophageal reflux disease) Hiatal hernia Hypertension Multiple myeloma (HCC) Past Surgical History: Procedure Laterality Date ANKLE FRACTURE SURGERY Left BREAST LUMPECTOMY Right times two CATARACT EXTRACTION W/ INTRAOCULAR LENS IMPLANT Bilateral SECTION, CLASSIC times two JOINT REPLACEMENT Right hip MI TOTAL KNEE ARTHROPLASTY Right 07/20/2024 Procedure: ARTHROPLASTY, KNEE, CONDYLE AND PLATEAU; MEDIAL AND LATERAL COMPARTMENTS WITH OR WITHOUTPATELLA RESURFACING (TOTAL KNEE ARTHROPLASTY); Surgeon: Saqib Santos MD; Location: [facility]; Service: Orthopedics MI TOTAL KNEE ARTHROPLASTY Left 11/09/2024 Procedure: ARTHROPLASTY, KNEE, CONDYLE AND PLATEAU; MEDIAL AND LATERAL COMPARTMENTS WITH OR WITHOUTPATELLA RESURFACING (TOTAL KNEE ARTHROPLASTY); Surgeon: Saqib Santos MD; Location: [facility]; Service: Orthopedics SALPINGOOPHORECTOMY Bilateral VARICOSE VEIN SURGERY Bilateral Vitals Treatment: OT EVAL/TREAT (Last 12 Hours) Adult OT Eval/Treat Row Name 11/12/24 0820 Bed Mobility Assessment/Treatment Poj-ig-Uvxkxm [place] (Bed Mobility) moderate assist (50% patient effort) Row Name 11/12/24 0820 Static Standing Balance Static Standing Position unsupported Static Standing Assistance Contact guard Static Standing Time (seconds) 15 seconds Row Name 11/12/24 0820 Transfer Assessment/Treatment Sit-Stand [place] level (Transfers) minimum assist (75% patient effort) extra time, pt talks self through sequence Toilet [place] Level (Transfers) contact guard assist extra time Toilet Assistive Device (Transfers) commode, over toilet;walker, rolling Toilet Transfer Type stand step OT Goal Summary (all recorded) OT Goal Summary Row Name 11/10/24 1400 Occupational Therapy Goals Transfer Goal Selection (OT) transfer, OT goal 1 Dressing Goal Selection (OT) dressing, OT goal 1 Toileting Goal Selection (OT) toileting, OT goal 1 Row Name 11/10/24 1400 11/11/24 1000 Transfer Goal 1 (OT) Activity (Transfer Goal 1, OT) toilet transfer -- [place] Level (Transfer Goal 1, OT) supervision required -- Assitive Devices (Transfer Goal 1, OT) walker, rolling -- Time Frame (Transfer Goal 1, OT) 4 days -- Outcome (Transfer Goal 1, OT) -- goal ongoing Row Name 11/10/24 1400 11/11/24 1000 Dressing Goal 1 (OT) Activity (Dressing Goal 1, OT) lower body dressing -- [place] Level (Dressing Goal 1, OT) supervision required -- Assistive Devices (Dressing Goal 1, OT) hospitality team member;sock-aid -- Time Frame (Dressing Goal 1, OT) 4 days -- Outcomes (Dressing Goal 1, OT) -- goal ongoing Row Name 11/10/24139911/11/24 1000 Toileting Goal 1 (OT) Activity (Toileting Goal 1, OT) perform perineal hygiene;adjust/manage clothing -- [place] Level (Toileting Goal 1, OT) supervision required -- Assistive Devices (Toileting Goal 1, OT) raised toilet seat;grab bar;walker, rolling -- Outcome (Toileting Goal 1, OT) -- goal ongoing Row Name 11/10/24 1400 Alf Goal (OT) Statement (Alf Goal, OT) return to home Dayan Ibarra OT Licensure: NED CORRAL: [id number] * Plan of Care - Kevin Dominguez RN - 11/12/2024 7:00 AM EST Pt is alert and oriented x3. VSS. CPOX in place, O2 sats 94% on ra. Pt complained of 5-7/10 pain left left knee overnight. Flexeril 5mg po given at 2356pm. Percocet 2tabs po given at 2356pm. Pt also requested a lozenge- cepacol lozenge administered at 2356pm. Breath sounds clear. 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 IS at bedside- pt able to get up to 1375. No issues with n,v,d. Transfers from bed to commode with walker and 1 assist. Left knee prineo dressing intact. 2-3+ swelling and bruising noted at site. Ice on/off prn. Bandaid to right knee c,d,I. See media of surgical site in chart. Right foot noted to have foot drop, monitor. Pt able to ambulate with 1 assist and walker. Heplocked, iv noted to be leaking slightly when flushed. Plan for STR when cleared. Safety checks per protocol. Progress: no change * Plan of Care - Jennifer Euceda RN - 11/11/2024 6:02 PM EST CASE MANAGEMENT NOTE: discharge planning. 78yo Medicare pt who was admitted on 11/09 under Extended Recovery. She has a hx of Multiple Myeloma, HTN, anxiety/depression. She underwent a knee arthroplasty by Dr. Santos on 11/09/2024. She has required assistance w/ limited mobility w/ PT and required min-max assistance w/ OT, thus has been recommended to go to rehab. She would clear to d/c to rehab today, but no beds have been offered. Her preferred facility - [facility] in [place] has clinically accepted her, butdid not have a bed available today. CM expanded search to other acute rehab facilities, which alll answered back that pt does not need enough medical management for acute rehab level of care. Referrals sent to short term rehabs, which were interested and could offer a bed if she were to meet Medicare coverage criteria (3 inpatient midnights) - pt does not. (CM inquired in EPIC chat about level of care. Also consulted w/ colleagues if pt's level of care should be changed from Extended Recovery to inpatient level at this point and was advised not to. CM met w/ pt at the bedside and spoke w/ son Ethan over the phone. We reviewed the above stated. Pt lives alone in a one story [place] style home in [facility], where she has 4 steps at the entrance. She has two sons who live in [place] and [place]. Son Ethan has requested to have search for rehab bed expanded further anywhere in the state. He is questioning why [facility] in [place] was able to clinically accept pt while other acute facilities were not. Again, SHAHBAZ explained the above stated. He states that pt went there before when she had the exact same surgical procedure on the other side, and is adamant that if pt was accepted then, she should be accepted at rehab now. - Again, [facility], where pt was then, accepted but does not forsee an available acute rehab bed any time soon. CM expanded search through out the state to other [facility] facilities, as requested by pt and son. Of note, son also mentioned pt's labile blood pressure overnight and inquired if this would help her be eligible for insurance coverage of rehab benefits. Her blood pressure, per record review, have been stable today. We have also discussed possible need to go home w/ services and for sons to arrange either private help so pt is not left alone, or to take some FMLA in order to stay w/ pt while she recovers further. CM team to follow up. * Plan of Care - Sandra Barroso RN - 11/11/2024 4:17 PM EST Care assumed [id number]. Pt AOX 4. 1 A OOB to commode. CPOX satting > 92% on RA, VSS. Incision open to air, ice on wound, swelling and bruising at site. Morphine given along with benadryl for itchiness. Pt requesting high dose of morphine, education given to pt on transitioning to PO soon. Pt compliant with meds. PHR or safety and comfort. Call calvillo in reach. * Plan of Care - Aime De PTA - 11/11/2024 3:19 PM EST Images from the original note were not included. Problem: Adult Inpatient Plan of Care Goal: Plan of Care Review Outcome: Ongoing (interventions implemented as appropriate) Flowsheets (Taken 11/11/2024 3191) Plan of Care Reviewed With: patient Plan of Care Summary: Cont with PT recommendation for an inpatient facility Progress: no change Physical Therapy Physical Therapy Treatment Note Patient Name: Lillian Copeland Treatment Received On : 11/11/2024 Plan of Care Review Plan of Care Reviewed With: patient Comments : pt presents supine in bed reporting 7-8/10 pain and declining OOB at this time but agreeable to supine therex. Pt performed exs L LE as per flow sheets and was left supine in bed with calllight and needs in reach and comfort measures taken. 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 Anxiety Cancer (CMS/HCC) (HCC) right breast Depression GERD (gastroesophageal reflux disease) Hiatal hernia Hypertension Multiple myeloma (HCC) Past Surgical History: Procedure Laterality Date ANKLE FRACTURE SURGERY Left BREAST LUMPECTOMY Right times two CATARACT EXTRACTION W/ INTRAOCULAR LENS IMPLANT Bilateral SECTION, CLASSIC times two JOINT REPLACEMENT Right hip MI TOTAL KNEE ARTHROPLASTY Right 07/20/2024 Procedure: ARTHROPLASTY, KNEE, CONDYLE AND PLATEAU; MEDIAL AND LATERAL COMPARTMENTS WITH OR WITHOUTPATELLA RESURFACING (TOTAL KNEE ARTHROPLASTY); Surgeon: Saqib Santos MD; Location: [facility]; Service: Orthopedics MI TOTAL KNEE ARTHROPLASTY Left 11/09/2024 Procedure: ARTHROPLASTY, KNEE, CONDYLE AND PLATEAU; MEDIAL AND LATERAL COMPARTMENTS WITH OR WITHOUTPATELLA RESURFACING (TOTAL KNEE ARTHROPLASTY); Surgeon: Saqib Santos MD; Location: [facility]; Service: Orthopedics SALPINGOOPHORECTOMY Bilateral VARICOSE VEIN SURGERY Bilateral Treatment: Default Flowsheet Data (Last 12 Hours) Adult PT Evaluation/Treatment Row Name 11/11/24 1435 General Information Patient Profile Review yes General Observations of Patient supine in bed resting reporting 7-8/10 pain Row Name 11/11/24 1015 Pain Scale Pain Scale Pain Scale: Numbers Pre/Post-Treatment (Group) Row Name 11/11/24 1015 Pain Scale: Numbers Treatment Pain: Pre Treatment (Numbers Scale) 8/10 Pain: During Treatment (Numbers Scale) 7/10 Pain: Post Treatment (Numbers Scale) 5/10 Pain Interventions (Numbers Scale) position adjusted;premedicated for activity;prescribed exercisesencouraged;cold applied Row Name 11/11/24 1435 Bed Mobility Assessment/Treatment Comment (Bed Mobility) pt declines OOB at this time Row Name 11/11/24 1015 Bed Mobility Assessment/Treatment Mgz-mi-Vgncxm [place] (Bed Mobility) minimum assist (75% patient effort);verbal cues required;nonverbal cues required (demo/gesture) Impairments (Bed Mobility) strength decreased;ROM (range of motion) decreased;pain Row Name 11/11/24 1435 Transfer Assessment/Treatment Comment (Transfers) pt declined OOB Row Name 11/11/24 1015 Transfer Assessment/Treatment Sit-Stand [place] level (Transfers) minimum assist (75% patient effort);verbal cues required Stand-Sit [place] level(Transfers) minimum assist (75% patient effort);verbal cues required Tot-Ciotp-Tgj Assistive Device (Transfers) walker, rolling;gait belt Maintain Weight Bearing Status (Transfers) able to maintain weight bearing status Safety Issues (Transfers) step length decreased;weight-shifting ability decreased;balance decreasedduring turns Impairments (Transfers) strength decreased;ROM (range of motion) decreased;pain Row Name 11/11/24 1015 Gait Assessment/Treatment [place] (Gait) contact guard assist;verbal cues required Assistive Device (Gait) walker, rolling;gait belt Distance in Feet (Gait) 5 steps fwd, 6 steps bwd w/ turn to HOB Gait Deviations jf, decreased;flexed knee, left;stance time, decreased, left;foot flat, right Maintain Weight Bearing Status (Gait) able to maintain weight bearing status Safety Issues (Gait) balance decreased during turns;step length decreased;weight-shifting ability decreased Impairments (Gait) strength decreased;ROM (range of motion) decreased;pain Row Name 11/11/24 1435 Therapeutic Exercise Lower Extremity Therapeutic Exercise and ROM ankle pumps, left;ankle pumps, right;gluteal sets;heelslides, left;hip abduction, left;hip adduction, left;quad sets, left;SLR (straight leg raise), left Exercise Type (Therapeutic Exercise) AAROM (active assistive range of motion);AROM (active range ofmotion) Position (Therapeutic Exercise) supine Sets/Reps (Therapeutic Exercise) 10 Row Name 11/11/24 1015 Therapeutic Exercise Lower Extremity Therapeutic Exercise and ROM ankle dorsiflexion-plantar flexion, bilateral;gluteal sets;heel slides, left;heel slides, right;hip abduction, left;hip adduction, left;quad sets, left;quad sets, right;SAQ (short arc quad), left;knee flexion-extension, right Exercise Type (Therapeutic Exercise) AAROM (active assistive range of motion);AROM (active range ofmotion);isometric contraction, static Position (Therapeutic Exercise) supine Sets/Reps (Therapeutic Exercise) 10 Row Name 11/11/24 1015 Plan of Care Review Plan of Care Reviewed With patient Row Name 11/11/24 1435 Rehab Eval/Treat-Additional Details Document Type Therapy treatment note PT Treatment Received On 11/11/24 Row Name 11/11/24 1015 Rehab Eval/Treat-Additional Details Document Type Therapy treatment note PT Treatment Received On 11/11/24 Symptoms Noted During/After Treatment decreased pain;other (see comments) nausea PT Goal Summary (all recorded) PT Rehab Goal Summary Row Name 11/09/24 1700 Physical Therapy Goals Bed Mobility Goal Selection (PT) bed mobility, PT goal 1 Transfer Goal Selection (PT) transfer, PT goal 1 Gait Training Goal Selection (PT) gait training, PT goal 1 Stairs Goal Selection (PT) stairs, PT goal 1 Row Name 11/09/24 17011/10/24 1200 11/10/24 1300 Bed Mobility Goal 1 (PT) Activity (Bed Mobility Goal 1, PT) rolling to left;rolling to right;scooting;sit to supine/supine to sit -- -- [place] Level/Cues Needed (Bed Mobility Goal 1, PT) independent -- -- Assitive Devices (Bed Mobility Goal 1, PT) none -- -- Time Frame (Bed Mobility Goal 1, PT) 2 days -- -- Outcomes (Bed Mobility Goal 1, PT) -- goal ongoing goal ongoing Row Name 11/09/24 17011/10/24 1200 11/10/24 1300 Transfer Goal 1 (PT) Activity (Transfer Goal 1, PT) uft-rv-zpriq/yitdt-jv-rad;pct-te-doutk/oijsn-an-mrl -- -- [place] Level/Cues Needed (Transfer Goal 1, PT) contact guard assist -- -- Assitive Devices (Transfer Goal 1, PT) walker, rolling -- -- Time Frame (Transfer Goal 1, PT) 2 days -- -- Outcome (Transfer Goal 1, PT) -- goal ongoing goal ongoing Row Name 11/09/24 17011/10/24 1200 11/10/24 1300 Gait Training Goal 1 (PT) Activity (Gait Training Goal 1, PT) gait (walking locomotion);diminish gait deviation;forward stepping;improve balance and speed;increase endurance/gait distance;normalize weight shifts -- -- [place] Level (Gait Training Goal 1, PT) contact guard assist -- -- Assistive Devices (Gait Training Goal 1, PT) walker, rolling;gait belt -- -- Distance (Gait Goal 1, PT) 100 ft -- -- Time Frame (Gait Training Goal 1, PT) 3 days -- -- Outcome (Gait Training Goal 1, PT) -- goal ongoing goal ongoing Row Name 11/09/24 1700 Stairs Goal 1 (PT) Activity (Stairs Goal 1, PT) ascending stairs;descending stairs;using handrail, left;eipr-vv-divr [place] Level/Cues Needed (Stairs Goal 1, PT) supervision required Assistive Devices (Stairs Goal 1, PT) handrail;cane, straight Number of Stairs (Stairs Goal 1, PT) 4 Time Frame (Stairs Goal 1, PT) 3 days Row Name 11/09/24 1700 Music Pastor Goal (PT) Statement (Alf Goal, PT) Return to PLOF [place] Level (Alf Goal, PT) modified independence Time Frame (Alf Goal, PT) 2 weeks Aime De PTA Licensure: NED LOU: [id number] * Plan of Care - Chelsea Fagan PTA - 11/11/2024 11:21 AM EST Images from the original note were not included. Problem: Adult Inpatient Plan of Care Goal: Plan of Care Review Outcome: Ongoing (interventions implemented as appropriate) Flowsheets (Taken 11/11/2024 1120) Plan of Care Reviewed With: patient Plan of Care Summary: Cont w/ PT recommendation for inpt facility Physical Therapy Physical Therapy Treatment Note Patient Name: Lillian Copeland Treatment Received On : 11/11/2024 Plan of Care Review Plan of Care Reviewed With: patient Comments : Pt presented sitting in chair, just finished ADLs a short while ago w/ OT's assist. Pt reports fatigued and requesting BTB, w/ encouragement pt agreed to ambulation and then BTB prn. Assist required for transfers OOC and BTB. Limited ambulation tolerance d/t pt felt nausea and fatigue after ambulation 4 steps w/ decreased BP (see below). Pt able to take steps toward bed and transferredBTB w/ assist. L LE supported w/ blanket roll L lateral lower leg to prevent ER hip, towel roll placed under L ankle to promote knee ext. Therapist educated pt on gravity assisted R knee flex w/ SKTCw/ towel roll. Pt able to perform w/o assist and stated it feels good. Post PT RX comfort measures taken, call calvillo in reach. CPS applied to L knee. Cont w/ PT recommendation for inpt facility. Patient's response to therapy: fair, decreased BP Vitals: Sit in chair: BP 102/66 HR 90 BPM, 02 sat 94% RA Stand: BP 80/53, HR 121 BPM, 02 sat 96% In supine: BP 107, HR 92 BPM Patient Active Problem List Diagnosis Primary localized osteoarthritis of right knee Primary osteoarthritis of left knee Past Medical History: Diagnosis Date Achalasia surgical procedure for correction of same Anxiety Cancer (CMS/HCC) ([facility]) right breast Depression GERD (gastroesophageal reflux disease) Hiatal hernia Hypertension Multiple myeloma ([facility]) Past Surgical History: Procedure Laterality Date ANKLE FRACTURE SURGERY Left BREAST LUMPECTOMY Right times two CATARACT EXTRACTION W/ INTRAOCULAR LENS IMPLANT Bilateral SECTION, CLASSIC times two JOINT REPLACEMENT Right hip MI TOTAL KNEE ARTHROPLASTY Right 07/20/2024 Procedure: ARTHROPLASTY, KNEE, CONDYLE AND PLATEAU; MEDIAL AND LATERAL COMPARTMENTS WITH OR WITHOUTPATELLA RESURFACING (TOTAL KNEE ARTHROPLASTY); Surgeon: Saqib Santos MD; Location: [facility]; Service: Orthopedics MI TOTAL KNEE ARTHROPLASTY Left 11/09/2024 Procedure: ARTHROPLASTY, KNEE, CONDYLE AND PLATEAU; MEDIAL AND LATERAL COMPARTMENTS WITH OR WITHOUTPATELLA RESURFACING (TOTAL KNEE ARTHROPLASTY); Surgeon: Saqib Santos MD; Location: [facility]; Service: Orthopedics SALPINGOOPHORECTOMY Bilateral VARICOSE VEIN SURGERY Bilateral Treatment: Default Flowsheet Data (Last 12 Hours) Adult PT Evaluation/Treatment Row Name 11/11/24 1015 Pain Scale Pain Scale Pain Scale: Numbers Pre/Post-Treatment (Group) Row Name 11/11/24 1015 Pain Scale: Numbers Treatment Pain: Pre Treatment (Numbers Scale) 8/10 Pain: During Treatment (Numbers Scale) 7/10 Pain: Post Treatment (Numbers Scale) 01/16 Pain Interventions (Numbers Scale) position adjusted;premedicated for activity;prescribed exercisesencouraged;cold applied Row Name 11/11/24 1015 Bed Mobility Assessment/Treatment Jfy-sn-Jebmcm [place] (Bed Mobility) minimum assist (75% patient effort);verbal cues required;nonverbal cues required (demo/gesture) Impairments (Bed Mobility) strength decreased;ROM (range of motion) decreased;pain Row Name 11/11/24 1015 Transfer Assessment/Treatment Sit-Stand [place] level (Transfers) minimum assist (75% patient effort);verbal cues required Stand-Sit [place] level(Transfers) minimum assist (75% patient effort);verbal cues required Uug-Euswv-Ncr Assistive Device (Transfers) walker, rolling;gait belt Maintain Weight Bearing Status (Transfers) able to maintain weight bearing status Safety Issues (Transfers) step length decreased;weight-shifting ability decreased;balance decreasedduring turns Impairments (Transfers) strength decreased;ROM (range of motion) decreased;pain Row Name 11/11/24 1015 Gait Assessment/Treatment [place] (Gait) contact guard assist;verbal cues required Assistive Device (Gait) walker, rolling;gait belt Distance in Feet (Gait) 5 steps fwd, 6 steps bwd w/ turn to HOB Gait Deviations jf, decreased;flexed knee, left;stance time, decreased, left;foot flat, right Maintain Weight Bearing Status (Gait) able to maintain weight bearing status Safety Issues (Gait) balance decreased during turns;step length decreased;weight-shifting ability decreased Impairments (Gait) strength decreased;ROM (range of motion) decreased;pain Row Name 11/11/24 1015 Therapeutic Exercise Lower Extremity Therapeutic Exercise and ROM ankle dorsiflexion-plantar flexion, bilateral;gluteal sets;heel slides, left;heel slides, right;hip abduction, left;hip adduction, left;quad sets, left;quad sets, right;SAQ (short arc quad), left;knee flexion-extension, right Exercise Type (Therapeutic Exercise) AAROM (active assistive range of motion);AROM (active range ofmotion);isometric contraction, static Position (Therapeutic Exercise) supine Sets/Reps (Therapeutic Exercise) 10 Row Name 11/11/24 1015 Plan of Care Review Plan of Care Reviewed With patient Row Name 11/11/24 1015 Rehab Eval/Treat-Additional Details Document Type Therapy treatment note PT Treatment Received On 11/11/24 Symptoms Noted During/After Treatment decreased pain;other (see comments) nausea PT Goal Summary (all recorded) PT Rehab Goal Summary Row Name 11/09/24 1700 Physical Therapy Goals Bed Mobility Goal Selection (PT) bed mobility, PT goal 1 Transfer Goal Selection (PT) transfer, PT goal 1 Gait Training Goal Selection (PT) gait training, PT goal 1 Stairs Goal Selection (PT) stairs, PT goal 1 Row Name 11/09/24 1700 11/10/24 1200 11/10/24 1300 Bed Mobility Goal 1 (PT) Activity (Bed Mobility Goal 1, PT) rolling to left;rolling to right;scooting;sit to supine/supine to sit -- -- [place] Level/Cues Needed (Bed Mobility Goal 1, PT) independent -- -- Assitive Devices (Bed Mobility Goal 1, PT) none -- -- Time Frame (Bed Mobility Goal 1, PT) 2 days -- -- Outcomes (Bed Mobility Goal 1, PT) -- goal ongoing goal ongoing Row Name 11/09/24 1700 11/10/24 1200 11/10/24 1300 Transfer Goal 1 (PT) Activity (Transfer Goal 1, PT) han-lj-dfnys/jfujc-bl-dxt;zan-et-cnqsi/cjvfe-gy-xdc -- -- [place] Level/Cues Needed (Transfer Goal 1, PT) contact guard assist -- -- Assitive Devices (Transfer Goal 1, PT) walker, rolling -- -- Time Frame (Transfer Goal 1, PT) 2 days -- -- Outcome (Transfer Goal 1, PT) -- goal ongoing goal ongoing Row Name 11/09/24 1700 11/10/24 1200 11/10/24 1300 Gait Training Goal 1 (PT) Activity (Gait Training Goal 1, PT) gait (walking locomotion);diminish gait deviation;forward stepping;improve balance and speed;increase endurance/gait distance;normalize weight shifts -- -- [place] Level (Gait Training Goal 1, PT) contact guard assist -- -- Assistive Devices (Gait Training Goal 1, PT) walker, rolling;gait belt -- -- Distance (Gait Goal 1, PT) 100 ft -- -- Time Frame (Gait Training Goal 1, PT) 3 days -- -- Outcome (Gait Training Goal 1, PT) -- goal ongoing goal ongoing Row Name 11/09/24 1700 Stairs Goal 1 (PT) Activity (Stairs Goal 1, PT) ascending stairs;descending stairs;using handrail, left;[id number]-up-[id number] [place] Level/Cues Needed (Stairs Goal 1, PT) supervision required Assistive Devices (Stairs Goal 1, PT) handrail;cane, straight Number of Stairs (Stairs Goal 1, PT) 4 Time Frame (Stairs Goal 1, PT) 3 days Row Name 11/09/24 1700 Music Pastor Goal (PT) Statement (Music Pastor Goal, PT) Return to PLOF [place] Level (Music Pastor Goal, PT) modified independence Time Frame (Music Pastor Goal, PT) 2 weeks Chelsea Fagan PTA Licensure: NED LOU: [id number] * Plan of Care - Dayan Ibarra, OT - 11/11/2024 10:21 AM EST Images from the original note were not included. Problem: Adult Inpatient Plan of Care Goal: Plan of Care Review Outcome: Ongoing (interventions implemented as appropriate) Flowsheets (Taken 11/11/2024 1009) Plan of Care Reviewed With: patient Occupational Therapy Occupational Therapy Treatment Note Patient Name: Lillian Copeland Date of Evaluation: 11/11/2024 Plan of Care Review Plan of Care Reviewed With: patient Comments:Pt encountered in bed this date stating nausea and fatigue. Agreeable to EOB MRADL. Min A with LLE supine to sit with HOB elevated. Set up UBB/dress in hospital gown. Max A LBB/D. Education/training in use of hospitality team member for donning clean undergarment over feet. Pt remembering to don effected side first. PT facilitated STS to RW with min A. Pt initially anxious to maintain static standing without UE support for pericare, however able to maintain standing balance without UE support to hike clean undergarment over hips. Min A for stand step transfer to bedside chair. VC for safe centering on chair prior to sitting. Set up for oral care. Pain reported in LLE prior to tx 10. Following tx10 all over . Pt left in chair. Call calvillo within reach. Patient's response to therapy: Pt demonstrating improved confidence in standing balance to engage in self care. Good recall of recommended Problem: Adult Inpatient Plan of Care Goal: Plan of Care Review Outcome: Ongoing (interventions implemented as appropriate) Flowsheets (Taken 11/11/2024 1009) Plan of Care Reviewed With: patient dressing sequence for lower body. Expressing general sense of nausea she attributes to medication. Patient Active Problem List Diagnosis Primary localized osteoarthritis of right knee Primary osteoarthritis of left knee Past Medical History: Diagnosis Date Achalasia surgical procedure for correction of same Anxiety Cancer (CMS/HCC) (HCC) right breast Depression GERD (gastroesophageal reflux disease) Hiatal hernia Hypertension Multiple myeloma ([facility]) Past Surgical History: Procedure Laterality Date ANKLE FRACTURE SURGERY Left BREAST LUMPECTOMY Right times two CATARACT EXTRACTION W/ INTRAOCULAR LENS IMPLANT Bilateral SECTION, CLASSIC times two JOINT REPLACEMENT Right hip MI TOTAL KNEE ARTHROPLASTY Right 07/20/2024 Procedure: ARTHROPLASTY, KNEE, CONDYLE AND PLATEAU; MEDIAL AND LATERAL COMPARTMENTS WITH OR WITHOUTPATELLA RESURFACING (TOTAL KNEE ARTHROPLASTY); Surgeon: Saqib Santos MD; Location: [facility]; Service: Orthopedics MI TOTAL KNEE ARTHROPLASTY Left 11/09/2024 Procedure: ARTHROPLASTY, KNEE, CONDYLE AND PLATEAU; MEDIAL AND LATERAL COMPARTMENTS WITH OR WITHOUTPATELLA RESURFACING (TOTAL KNEE ARTHROPLASTY); Surgeon: Saqib Santos MD; Location: [facility]; Service: Orthopedics SALPINGOOPHORECTOMY Bilateral VARICOSE VEIN SURGERY Bilateral Vitals Pain Scale: Numbers Treatment Pain: Pre Treatment (Numbers Scale): 5/10 Pain: Post Treatment (Numbers Scale): 7/10 Pain Location - Side (Numbers Scale): other (see comments) (Pt feels pain all over body) Treatment: OT EVAL/TREAT (Last 12 Hours) Adult OT Eval/Treat Row Name 11/11/24 0915 General Information General Observations of Patient In bed, agreeable to EOB MRADL Row Name 11/11/24 0915 Pain Scale: Numbers Treatment Pain: Pre Treatment (Numbers Scale) 5/10 Pain: Post Treatment (Numbers Scale) 7/10 Pain Location - Side (Numbers Scale) other (see comments) Pt feels pain all over body Row Name 11/11/24 0915 Bed Mobility Assessment/Treatment [id number] [place] (Bed Mobility) minimum assist (75% patient effort);HOB elevated Row Name 11/11/24 0915 Transfer Assessment/Treatment Sit-Stand [place] level (Transfers) minimum assist (75% patient effort);other (see comments) height of bed raised approx. 20 inches from floor Bed-Chair [place] level (Transfers) contact guard assist Row Name 11/11/24 0915 Grooming Assessment/Training Position (Grooming) sitting [place] Level (Grooming) set up required [facility] Name 11/11/24 0915 Bathing Assessment/Training Position (Bathing) sitting [place] Level (Bathing) moderate assist (50% patient effort) Impairments (Bathing) ROM (range of motion) decreased;pain Row Name 11/11/24 0915 Upper Body Dressing Assessment/Training Position (UB Dressing) sitting [place] Level (UB Dressing) set up required [facility] Name 11/11/24 0915 Lower Body Dressing Assessment/Training Assistive Devices (LB Dressing) hospitality team member Position (LB Dressing) standing;sitting [place] Level (LB Dressing) maximum assist (25% patient effort) Impairments (LB Dressing) pain;ROM (range of motion) decreased Row Name 11/11/24 0915 Rehab Eval/Treat-Additional Details Document Type Therapy treatment note OT Treatment Received On 11/11/24 Patient Effort good Symptoms Noted During/After Treatment increased pain;other (see comments) nausea OT Goal Summary (all recorded) OT Goal Summary [facility] Name 11/10/24 1400 Occupational Therapy Goals Transfer Goal Selection (OT) transfer, OT goal 1 Dressing Goal Selection (OT) dressing, OT goal 1 Toileting Goal Selection (OT) toileting, OT goal 1 Row Name 11/10/24 1400 11/11/24 1000 Transfer Goal 1 (OT) Activity (Transfer Goal 1, OT) toilet transfer -- [place] Level (Transfer Goal 1, OT) supervision required -- Assitive Devices (Transfer Goal 1, OT) walker, rolling -- Time Frame (Transfer Goal 1, OT) 4 days -- Outcome (Transfer Goal 1, OT) -- goal ongoing Row Name 11/10/24 1400 11/11/24 1000 Dressing Goal 1 (OT) Activity (Dressing Goal 1, OT) lower body dressing -- [place] Level (Dressing Goal 1, OT) supervision required -- Assistive Devices (Dressing Goal 1, OT) hospitality team member;sock-aid -- Time Frame (Dressing Goal 1, OT) 4 days -- Outcomes (Dressing Goal 1, OT) -- goal ongoing Row Name 11/10/24 1400 11/11/24 1000 Toileting Goal 1 (OT) Activity (Toileting Goal 1, OT) perform perineal hygiene;adjust/manage clothing -- [place] Level (Toileting Goal 1, OT) supervision required -- Assistive Devices (Toileting Goal 1, OT) raised toilet seat;grab bar;walker, rolling -- Outcome (Toileting Goal 1, OT) -- goal ongoing Row Name 11/10/24 1400 Alf Goal (OT) Statement (Music Pastor Goal, OT) return to home Dayan Ibarra OT Licensure: NED CORRAL: [id number] * Plan of Care - Jordyn Fitzgerald RN - 11/11/2024 8:59 AM EST Assumed care of patient from [id number], AxOx4, RA, 1A w/RW for mobility and ADLs. Able tolerate sitting up @ the edge of bed. Elective Total L knee, post op (2). Able to tolerate meds whole. LLE DIRECTOR OF PROPERTY MANAGEMENT,CDI. RLE band aid CDI. +CSM. C/O of N/V + LLE pain + itchiness and given PRNs w/+effect. Administered morphine 2x on shift, c/o of itchiness after and given x2 benadryl. No S/S of adverse reaction and MD notified. Patient denies any chest pain and/or shortness of breath. Call light within reach and safety maintained. Problem: Adult Inpatient Plan of Care Goal: Plan of Care Review Outcome: Ongoing (interventions implemented as appropriate) Goal: Patient-Specific Goal (Individualized) Outcome: Ongoing (interventions implemented as appropriate) Goal: Absence of Hospital-Acquired Illness or Injury Outcome: Ongoing (interventions implemented as appropriate) Goal: Optimal Comfort and Wellbeing Outcome: Ongoing (interventions implemented as appropriate) Goal: Readiness for Transition of Care Outcome: Ongoing (interventions implemented as appropriate) Problem: Surgery Nonspecified Goal: Absence of Bleeding Outcome: Ongoing (interventions implemented as appropriate) Goal: Effective Bowel Elimination Outcome: Ongoing (interventions implemented as appropriate) Goal: Fluid and Electrolyte Balance Outcome: Ongoing (interventions implemented as appropriate) Goal: Blood Glucose Level Within Targeted Range Outcome: Ongoing (interventions implemented as appropriate) Goal: Absence of Infection Signs and Symptoms Outcome: Ongoing (interventions implemented as appropriate) Goal: Anesthesia/Sedation Recovery Outcome: Ongoing (interventions implemented as appropriate) Goal: Optimal Pain Control and Function Outcome: Ongoing (interventions implemented as appropriate) Goal: Nausea and Vomiting Relief Outcome: Ongoing (interventions implemented as appropriate) Goal: Effective Urinary Elimination Outcome: Ongoing (interventions implemented as appropriate) Goal: Effective Oxygenation and Ventilation Outcome: Ongoing (interventions implemented as appropriate) Problem: Fall Injury Risk Goal: Absence of Fall and Fall-Related Injury Outcome: Ongoing (interventions implemented as appropriate) Problem: Hospitalized Older Adult Goal: Optimal Functional Ability Outcome: Ongoing (interventions implemented as appropriate) Problem: Skin Injury Risk Increased Goal: Skin Health and Integrity Outcome: Ongoing (interventions implemented as appropriate) Plan of Care Reviewed With: patient * Hospital Course - Saqib Santos MD - 11/11/2024 8:03 AM EST You were hospitalized because: Severe Knee Discomfort Significant Procedures and/or Tests that you Underwent and Results: Knee Arthroplasty Your discharge diagnosis is: Knee Osteoarthritis Summary: You were admitted with complaint of severe knee discomfort with x-ray showing severe knee osteoarthritis. You underwent an uncomplicated knee replacement. You have been with physical therapy, ambulating at first around your bed, progressing to ambulating in the hallway, however not yet able to successfully negotiate stairs. You are now being discharged to a rehab facility to continue with your recovery. Fortunately, your postop course has been otherwise unremarkable. Your eventual discharge plan will include home visits by therapist and if needed nurses to ensure you continue to progress without issue. * Plan of Care - Arnold King RN - 11/11/2024 12:58 AM EST POD#1-2 [id number] Assumed care of patient @ 1900. Patient is A/Ox4, anxious but cooperative. CPOX>92% on 0.5L NC. Voiding up to BSC with assistance. LK incision CDI, ice applied. RK dressing CDI, bilat CSM intact. Pain managed with prn percocet. VSS. Meds per MAR, assessments per flowsheet. Call calvillo within reach, safety maintained. Plan of care ongoing. * Plan of Care - Ladonna Verma RN - 11/10/2024 3:02 PM EST Pt alert and oriented x4. Pleasant and compliant with meds and nursing care. VS as recorded on RA. Continues to report L knee pain. L knee pink, slight swelling, + PP with doppler, limited ROM to L knee. PRN percocet adm with min effect. With 1a RW, pt safely transferred to and from commode/chair. Ice therapy applied; IS encouraged. Call calvillo within reach, PHR for safety and comfort. Problem: Adult Inpatient Plan of Care Goal: Plan of Care Review Outcome: Ongoing (interventions implemented as appropriate) Goal: Patient-Specific Goal (Individualized) Outcome: Ongoing (interventions implemented as appropriate) Goal: Absence of Hospital-Acquired Illness or Injury Outcome: Ongoing (interventions implemented as appropriate) Goal: Optimal Comfort and Wellbeing Outcome: Ongoing (interventions implemented as appropriate) Goal: Readiness for Transition of Care Outcome: Ongoing (interventions implemented as appropriate) Problem: Surgery Nonspecified Goal: Absence of Bleeding Outcome: Ongoing (interventions implemented as appropriate) Goal: Effective Bowel Elimination Outcome: Ongoing (interventions implemented as appropriate) Goal: Fluid and Electrolyte Balance Outcome: Ongoing (interventions implemented as appropriate) Goal: Blood Glucose Level Within Targeted Range Outcome: Ongoing (interventions implemented as appropriate) Goal: Absence of Infection Signs and Symptoms Outcome: Ongoing (interventions implemented as appropriate) Goal: Anesthesia/Sedation Recovery Outcome: Ongoing (interventions implemented as appropriate) Goal: Optimal Pain Control and Function Outcome: Ongoing (interventions implemented as appropriate) Goal: Nausea and Vomiting Relief Outcome: Ongoing (interventions implemented as appropriate) Goal: Effective Urinary Elimination Outcome: Ongoing (interventions implemented as appropriate) Goal: Effective Oxygenation and Ventilation Outcome: Ongoing (interventions implemented as appropriate) Problem: Fall Injury Risk Goal: Absence of Fall and Fall-Related Injury Outcome: Ongoing (interventions implemented as appropriate) * Plan of Care - Fatuma Suarez - 11/10/2024 2:31 PM EST Shahbaz spoke with [phone] and they do not have a bed today, she will follow up with CM tomorrow. * Plan of Care - Dayan Ibarra OT - 11/10/2024 1:58 PM EST Images from the original note were not included. Occupational Therapy Occupational Therapy Initial Assessment Patient Name: Lillian Copeland Date of Evaluation: 11/10/2024 Default Flowsheet Data (Last 12 Hours) OT Plan and Recommendation Row Name 11/10/24 0845 Clinical Impression Patient/Family Goals Statement return home Rehab Potential excellent Therapy Frequency daily OT Anticipated Equipment Needs at Discharge dressing stick;comfort height toilet;grab bar in tub/shower OT Anticipated Discharge Disposition inpatient facility OT - OK to Discharge ? Yes Plan of Care Review Plan of Care Reviewed With: patient Occupational Therapy Evaluation complexity level was based on the following elements: occupational profile, medical and therapy history of the patient, assessment and identification of performance deficits and complexity of clinical decision making as documented in the EMR in accordance with CMS CPT code standards. Level of complexity of evaluation : Low Problem: Adult Inpatient Plan of Care Goal: Plan of Care Review Flowsheets (Taken 11/10/2024 0754) Plan of Care Reviewed With: patient Comments:78 yo female admitted for elective L TKR (R knee manipulation done at same time while under anaesthesia). Lillian had her R knee replaced in Jul 2024 and went to a rehab facility after her surgery; stayed 11 days before returning home with services. She lives by herself (with her small dog) in a house with 4 JAKE, has a walker and cane at home, walk-in shower, grab bars and LHAE. Pt encountered this date POD#2 sitting in bedside chair with LLE elevated. Pain in LLE at rest of 7/10. Following short distance ambulation toward bathroom pain in LLE 8/10. Pt reporting negligible pain in RLE. BP sitting 100/54. Standing BP 121/73. Pt endorsing little lightheadedness. PT presenting with impairments in balance, ROM and pain currently limiting independence with self care and func tional mobility. Recommending discharge to inpatient facility to continue OT/PT for safe discharge to the community. Problem: Adult Inpatient Plan of Care Goal: Plan of Care Review Flowsheets (Taken 11/10/2024 0902) Plan of Care Reviewed With: patient Patient Active Problem List Diagnosis Primary localized osteoarthritis of right knee Primary osteoarthritis of left knee Past Medical History: Diagnosis Date Achalasia surgical procedure for correction of same Anxiety Cancer (CMS/HCC) (HCC) right breast Depression GERD (gastroesophageal reflux disease) Hiatal hernia Hypertension Multiple myeloma (HCC) Past Surgical History: Procedure Laterality Date ANKLE FRACTURE SURGERY Left BREAST LUMPECTOMY Right times two CATARACT EXTRACTION W/ INTRAOCULAR LENS IMPLANT Bilateral SECTION, CLASSIC times two JOINT REPLACEMENT Right hip MI TOTAL KNEE ARTHROPLASTY Right 07/20/2024 Procedure: ARTHROPLASTY, KNEE, CONDYLE AND PLATEAU; MEDIAL AND LATERAL COMPARTMENTS WITH OR WITHOUTPATELLA RESURFACING (TOTAL KNEE ARTHROPLASTY); Surgeon: Saqib Santos MD; Location: [facility]; Service: Orthopedics [place] TOTAL KNEE ARTHROPLASTY Left 11/09/2024 Procedure: ARTHROPLASTY, KNEE, CONDYLE AND PLATEAU; MEDIAL AND LATERAL COMPARTMENTS WITH OR WITHOUTPATELLA RESURFACING (TOTAL KNEE ARTHROPLASTY); Surgeon: Saqib Santos MD; Location: [facility]; Service: Orthopedics SALPINGOOPHORECTOMY Bilateral VARICOSE VEIN SURGERY Bilateral Vitals Assessment: OT EVAL/TREAT (Last 12 Hours) Adult OT Eval/Treat Row Name 11/10/24 0845 General Information Patient Profile Review yes Onset of Illness/Injury or Date of Surgery 11/09/24 General Observations of Patient sitting in bedside chair with LLE elevated Row Name 11/10/24 0845 Weight-Bearing Status Extremity Weight Bearing Status other (see comments) WBAT BLEs Row Name 11/10/24 0845 Living Environment Lives With alone Living Arrangements house Home Accessibility stairs to enter home Number of Stairs to Enter Home 4 Stair Railings at Home outside, present at both sides Number of Floors 1 Home Care Services No Row Name 11/10/24 0845 Equipment Details Equipment in the home ADL Aids (row);Ambulation (row) ADL Aids hospitality team member;sock aid Ambulation cane - straight;walker - rolling Row Name 03/04/25 0845 Functional Level Prior Bed Mobility independent Transferring independent Ambulation independent Stairs independent Toileting independent Bathing independent Bathing Assistive Device grab bar in tub/shower;other (see comments) walk-in shower Dressing independent Eating independent Row Name 11/10/24 0845 Daily Routine Important Activities other (see comments) Pt enjoys gardening and taking care of her small dog Row Name 11/10/24 0845 IADLs HYPERBARIC TECH Meal Plan/Prep primary Shopping primary Money Management primary Medical/Medication Management primary Transportation primary drives Row Name 11/10/24 0845 IADLs Current Meal Plan/Prep impaired Senior Stock Plan Administrator impaired Transportation impaired Row Name 11/10/24 0845 Safety Issues, Functional Mobility Impairments Affecting Function (Mobility) pain;range of motion (ROM);balance;other (see comments) Comment, Safety Issues/Impairments (Mobility) anxiety Row Name 11/10/24 0845 Pain Scale: Numbers Treatment Pain: Pre Treatment (Numbers Scale) 7/10 Pain: Post Treatment (Numbers Scale) 8/10 Pain Location - Side (Numbers Scale) Left Pain Location - Body (Numbers Scale) knee Multiple Pain Sites (Numbers) Two Row Name 11/10/24 0845 Pain Scale 2 Pain: Pre Treatment 2 1/10 Pain: Post Treatment 2 0/10 - no pain Pain Location 2 - Side Right Pain Location 2 - Body knee Row Name 11/10/24 0845 General UE Assessment Upper Extremity: Range of Motion LUE ROM was WFL;RUE ROM was WFL Row Name 11/10/24 0845 Static Sitting Balance Static Sitting Position sitting in chair Static Sitting Assistance With set up Row Name 11/10/24 0845 Dynamic Sitting Balance Dynamic Sitting Position sitting in chair Dynamic Sitting Assistance Supervision Row Name 11/10/24 0845 Static Standing Balance Static Standing Position supported Static Standing Extremity Support Bilateral upper extremities Static Standing Assistive Devices walker, rolling Standing Static Comment Pt demonstrating increased weight shift to right side; offloading weight through LLE Row Name 11/10/24 0845 Dynamic Standing Balance Dynamic Standing Position supported Dynamic Standing Assistance Supervision Dynamic Standing Extremity Support Bilateral upper extremities Dynamic Standing Assistive Devices walker,rolling Dynamic Standing Balance Impairments pain;range of motion (ROM) Row Name 11/10/24 0845 Transfer Assessment/Treatment Sit-Stand [place] level (Transfers) minimum assist (75% patient effort) Stand-Sit [place] level(Transfers) minimum assist (75% patient effort) [id number]-Ewwul-Vdi Assistive Device (Transfers) walker, rolling Chair-Bed [place] level (Transfers) minimum assist (75% patient effort) [id number]-Ibj Assistive Device (Transfers) walker, rolling Toilet [place] Level (Transfers) minimum assist (75% patient effort) Row Name 11/10/24 0845 Mobility Assessment/Training Additional Documentation -- ADL mobility with RW indoor/room surface 9 ft with 1 turn, min A and verbal cues. Pt noted to limit L knee flexion, hiking hip when stepping forward Row Name 11/10/24 0845 Upper Body Dressing Assessment/Training [place] Level (UB Dressing) set up required Row Name 11/10/24 0845 Lower Body Dressing Assessment/Training [place] Level (LB Dressing) maximum assist (25% patient effort) Row Name 11/10/24 0845 Toileting Assessment/Training [place] Level (Toileting) moderate assist (50% patient effort) Row Name 11/10/24 0845 Clinical Impression Patient/Family Goals Statement return home Rehab Potential excellent Therapy Frequency daily OT Anticipated Equipment Needs at Discharge dressing stick;comfort height toilet;grab bar in tub/shower OT Anticipated Discharge Disposition inpatient facility OT - OK to Discharge ? Yes Row Name 11/10/24 0845 Planned Therapy Interventions Planned Therapy Interventions ADL retraining;balance training;energy conservation education;ROM (range of motion);strengthening;transfer training Row Name 11/10/24 0845 Rehab Eval/Treat-Additional Details Document Type Initial Evaluation OT Date of Initial Eval/Re-Eval 11/10/24 Patient Effort good Symptoms Noted During/After Treatment other (see comments) increase in pain from 7/10 to 8/10 with activity OT Goal Summary (all recorded) OT Goal Summary Row Name 11/10/24 1400 Occupational Therapy Goals Transfer Goal Selection (OT) transfer, OT goal 1 Dressing Goal Selection (OT) dressing, OT goal 1 Toileting Goal Selection (OT) toileting, OT goal 1 Row Name 11/10/24 1400 Transfer Goal 1 (OT) Activity (Transfer Goal 1, OT) toilet transfer [place] Level (Transfer Goal 1, OT) supervision required Assitive Devices (Transfer Goal 1, OT) walker, rolling Time Frame (Transfer Goal 1, OT) 4 days Row Name 11/10/24 1400 Dressing Goal 1 (OT) Activity (Dressing Goal 1, OT) lower body dressing [place] Level (Dressing Goal 1, OT) supervision required Assistive Devices (Dressing Goal 1, OT) hospitality team member;sock-aid Time Frame (Dressing Goal 1, OT) 4 days Row Name 11/10/24 1400 Toileting Goal 1 (OT) Activity (Toileting Goal 1, OT) perform perineal hygiene;adjust/manage clothing [place] Level (Toileting Goal 1, OT) supervision required Assistive Devices (Toileting Goal 1, OT) raised toilet seat;grab bar;walker, rolling Row Name 11/10/24 1400 Alf Goal (OT) Statement (Alf Goal, OT) return to home Dayan Ibarra OT Licensure: ELLIS MA: [id number] * Plan of Care - Babita Lawrence PTA - 11/10/2024 1:56 PM EST Problem: Adult Inpatient Plan of Care Goal: Plan of Care Review 11/10/2024 1356 by Babita Lawrence PTA Outcome: Ongoing (interventions implemented as appropriate) Flowsheets Taken 11/10/2024 1356 by Babita Lawrence PTA Progress: improving Taken 11/10/2024 1330 by Babita Lawrence PTA Plan of Care Reviewed With: patient son Taken 11/09/2024 175 by Maliha Banuelos PT Plan of Care Summary: Current PT recommendation is for discharge to in-pt facility once pt medically stable. Will cont to monitor in case of changing dispo needs 11/10/2024 1204 by Babita Lawrence PTA Outcome: Ongoing (interventions implemented as appropriate) Flowsheets Taken 11/10/2024 1203 by Babita Lawrence PTA Plan of Care Reviewed With: patient Progress: improving Taken 11/09/2024 1759 by Maliha Banuelos PT Plan of Care Summary: Current PT recommendation is for discharge to in-pt facility once pt medically stable. Will cont to monitor in case of changing dispo needs Physical Therapy Physical Therapy Treatment Note Patient Name: Lillian Copeland Treatment Received On : 11/10/2024 Clinical Impression PT Anticipated Discharge Disposition: inpatient facility Plan of Care Review Plan of Care Reviewed With: patient, son Comments : Pt was in bed upon arrival in visible distress, reporting 8/10 L knee pain; son at bedside. Agreeable to PT. Slow sup>sit w/ min A due to L LE weakness/pain and cueing. Pt is guarded/fearful of increased pain w/ assistance. Sit>stand w/ max cueing and min A. On/off commode via stand-step and CG, assistance required w/ hygiene. Pt amb 2x 15 feet w/ RW and CG. Cueing required for proper RW placement due to safety concerns as pt experience a few sudden cramps during amb w/ brief episodes of unsteadiness (due to pain). Distance limited by pain. Stand>sit continues to required constant cueing w/ fair follow through and min A w/ L LE due to pain. Heel slides performed w/ R knee flexion to >95% and L knee flexion to >80%, limited by pain. Comfort measures provided before pt was left with all needs within reach. Pt appeared more comfortable post tx, but continued to reported L LE pain was 8/10; no pain in R LE. Vitals: Seated BP 128/73, Standing BP 133/76, minimal lightheadedness reported Patient Active Problem List Diagnosis Primary localized osteoarthritis of right knee Primary osteoarthritis of left knee Past Medical History: Diagnosis Date Achalasia surgical procedure for correction of same Anxiety Cancer (CMS/HCC) ([facility]) right breast Depression GERD (gastroesophageal reflux disease) Hiatal hernia Hypertension Multiple myeloma ([facility]) Past Surgical History: Procedure Laterality Date ANKLE FRACTURE SURGERY Left BREAST LUMPECTOMY Right times two CATARACT EXTRACTION W/ INTRAOCULAR LENS IMPLANT Bilateral SECTION, CLASSIC times two JOINT REPLACEMENT Right hip MI TOTAL KNEE ARTHROPLASTY Right 07/20/2024 Procedure: ARTHROPLASTY, KNEE, CONDYLE AND PLATEAU; MEDIAL AND LATERAL COMPARTMENTS WITH OR WITHOUTPATELLA RESURFACING (TOTAL KNEE ARTHROPLASTY); Surgeon: Saqib Santos MD; Location: [facility] OR; Service: Orthopedics MI TOTAL KNEE ARTHROPLASTY Left 11/09/2024 Procedure: ARTHROPLASTY, KNEE, CONDYLE AND PLATEAU; MEDIAL AND LATERAL COMPARTMENTS WITH OR WITHOUTPATELLA RESURFACING (TOTAL KNEE ARTHROPLASTY); Surgeon: Saqib Santos MD; Location: [facility] OR; Service: Orthopedics SALPINGOOPHORECTOMY Bilateral VARICOSE VEIN SURGERY Bilateral Treatment: Default Flowsheet Data (Last 12 Hours) Adult PT Focused Evaluation/Treatment Row Name 11/10/24 1330 General Information Patient Profile Review yes General Observations of Patient In bed w/ son at bed side Row Name 11/10/24 0905 General Information Patient Profile Review yes General Observations of Patient Sitting in bed side chair Row Name 11/10/24 1330 Pain Scale: Numbers Treatment Pain: Pre Treatment (Numbers Scale) 8/10 Pain: During Treatment (Numbers Scale) 8/10 Pain: Post Treatment (Numbers Scale) 8/10 Row Name 11/10/24 0905 Pain Scale: Numbers Treatment Pain: Pre Treatment (Numbers Scale) 7/10 Pain: Post Treatment (Numbers Scale) 8/10 Pain Location - Side (Numbers Scale) Left Row Name 11/10/24 09 Static Standing Balance Static Standing Assistance Contact guard;Minimal assistance Static Standing Extremity Support Bilateral upper extremities;Bilateral lower extremities Static Standing Assistive Devices gait belt;walker, rolling Row Name 11/10/24 133 Bed Mobility Assessment/Treatment Assistive Device (Bed Mobility) bedrail;draw sheet Scoot/Bridge [place] (Bed Mobility) minimum assist (75% patient effort) Ompbpv-mt-[id number] [place] (Bed Mobility) minimum assist (75% patient effort) Row Name 11/10/24 1330 Transfer Assessment/Treatment Sit-Stand [place] level (Transfers) minimum assist (75% patient effort) Stand-Sit [place] level(Transfers) minimum assist (75% patient effort);verbal cues required Bga-Sklwe-Azw Assistive Device (Transfers) gait belt;walker, rolling Bed-Chair [place] level (Transfers) minimum assist (75% patient effort);verbal cues required Toilet [place] Level (Transfers) minimum assist (75% patient effort);verbal cues required Toilet Transfer Type stand step Row Name 11/10/24 09 Transfer Assessment/Treatment Sit-Stand [place] level (Transfers) minimum assist (75% patient effort);verbal cues required Stand-Sit [place] level(Transfers) minimum assist (75% patient effort) Zxh-Hmyxh-Zjj Assistive Device (Transfers) walker, rolling;gait belt Row Name 11/10/24 133 Gait Assessment/Treatment [place] (Gait) contact guard assist;verbal cues required;set up required Assistive Device (Gait) walker, rolling;gait belt Distance in Feet (Gait) 2x 15 feet Gait Pattern Analysis 3-point gait Gait Deviations jf, decreased;flexed knee, left;foot flat, left;stance time, decreased, left Row Name 11/10/24 0905 Gait Assessment/Treatment [place] (Gait) contact guard assist;verbal cues required Assistive Device (Gait) walker, rolling;gait belt Distance in Feet (Gait) 2x 20 feet Gait Deviations jf, decreased;step length, decreased;stance time, decreased, left Row Name 11/10/24 1330 Therapeutic Exercise Lower Extremity Therapeutic Exercise and ROM ankle dorsiflexion-plantar flexion, bilateral;ankle pumps, left;ankle pumps, right;gluteal sets;heel slides, bilateral;hip flexion-extension, bilateral;quad sets, left Exercise Type (Therapeutic Exercise) AROM (active range of motion);AAROM (active assistive range ofmotion) Position (Therapeutic Exercise) seated Sets/Reps (Therapeutic Exercise) 10 Comment (Therapeutic Exercise) guarded w/ AAROM Row Name 11/10/24 0905 Therapeutic Exercise Lower Extremity Therapeutic Exercise and ROM ankle dorsiflexion-plantar flexion, bilateral;ankle pumps, left;ankle pumps, right;heel slides, bilateral;quad sets, left Exercise Type (Therapeutic Exercise) AROM (active range of motion);AAROM (active assistive range ofmotion) Position (Therapeutic Exercise) seated Sets/Reps (Therapeutic Exercise) 10 Row Name 11/10/24 1330 Clinical Impression PT Anticipated Discharge Disposition inpatient facility Row Name 11/10/24 0905 Clinical Impression PT Anticipated Discharge Disposition inpatient facility Row Name 11/10/24 1330 Plan of Care Review Plan of Care Reviewed With patient;son Row Name 11/10/24 0905 Plan of Care Review Plan of Care Reviewed With parent Row Name 11/10/24 1330 PT Eval/ Treat- Additional Details Document Type Therapy treatment note PT Treatment Received On 11/10/24 Patient Effort good Symptoms Noted During/After Treatment increased pain Row Name 11/10/24 0905 PT Eval/ Treat- Additional Details Document Type Therapy treatment note PT Treatment Received On 11/10/24 Patient Effort good Symptoms Noted During/After Treatment increased pain PT Goal Summary (all recorded) PT Rehab Goal Summary Row Name 11/09/24 1700 Physical Therapy Goals Bed Mobility Goal Selection (PT) bed mobility, PT goal 1 Transfer Goal Selection (PT) transfer, PT goal 1 Gait Training Goal Selection (PT) gait training, PT goal 1 Stairs Goal Selection (PT) stairs, PT goal 1 Row Name 11/09/24 1700 11/10/24 1200 11/10/24 1300 Bed Mobility Goal 1 (PT) Activity (Bed Mobility Goal 1, PT) rolling to left;rolling to right;scooting;sit to supine/supine to sit -- -- [place] Level/Cues Needed (Bed Mobility Goal 1, PT) independent -- -- Assitive Devices (Bed Mobility Goal 1, PT) none -- -- Time Frame (Bed Mobility Goal 1, PT) 2 days -- -- Outcomes (Bed Mobility Goal 1, PT) -- goal ongoing goal ongoing Row Name 11/09/24 1700 11/10/24 1200 11/10/24 1300 Transfer Goal 1 (PT) Activity (Transfer Goal 1, PT) ncq-wl-uckdj/cwpdd-fk-qnb;frq-yh-fquub/cyucc-lj-slf -- -- [place] Level/Cues Needed (Transfer Goal 1, PT) contact guard assist -- -- Assitive Devices (Transfer Goal 1, PT) walker, rolling -- -- Time Frame (Transfer Goal 1, PT) 2 days -- -- Outcome (Transfer Goal 1, PT) -- goal ongoing goal ongoing Row Name 11/09/24 1700 11/10/24 1200 11/10/24 1300 Gait Training Goal 1 (PT) Activity (Gait Training Goal 1, PT) gait (walking locomotion);diminish gait deviation;forward stepping;improve balance and speed;increase endurance/gait distance;normalize weight shifts -- -- [place] Level (Gait Training Goal 1, PT) contact guard assist -- -- Assistive Devices (Gait Training Goal 1, PT) walker, rolling;gait belt -- -- Distance (Gait Goal 1, PT) 100 ft -- -- Time Frame (Gait Training Goal 1, PT) 3 days -- -- Outcome (Gait Training Goal 1, PT) -- goal ongoing goal ongoing Row Name 11/09/24 1700 Stairs Goal 1 (PT) Activity (Stairs Goal 1, PT) ascending stairs;descending stairs;using handrail, left;fddx-kj-sxwt [place] Level/Cues Needed (Stairs Goal 1, PT) supervision required Assistive Devices (Stairs Goal 1, PT) handrail;cane, straight Number of Stairs (Stairs Goal 1, PT) 4 Time Frame (Stairs Goal 1, PT) 3 days Row Name 11/09/24 1700 Alf Goal (PT) Statement (Music Pastor Goal, PT) Return to PLOF [place] Level (Alf Goal, PT) modified independence Time Frame (Music Pastor Goal, PT) 2 weeks Babita Lawrence PTA Licensure: NED LOU: [id number] * Plan of Care - Babita Lawrence PTA - 11/10/2024 12:04 PM EST Problem: Adult Inpatient Plan of Care Goal: Plan of Care Review Outcome: Ongoing (interventions implemented as appropriate) Flowsheets Taken 11/10/2024 1203 by Babita Lawrence PTA Plan of Care Reviewed With: patient Progress: improving Taken 11/09/2024 1759 by Maliha Banuelos PT Plan of Care Summary: Current PT recommendation is for discharge to in-pt facility once pt medically stable. Will cont to monitor in case of changing dispo needs Physical Therapy Physical Therapy Treatment Note Patient Name: Lillian Copeland Treatment Received On : 11/10/2024 Clinical Impression PT Anticipated Discharge Disposition: inpatient facility Plan of Care Review Plan of Care Reviewed With: patient Comments : Pt was sitting in bed side chair upon arrival. After seated therex w/ good tolerance, pttransferred sit>stand w/ RW, Min A and cueing. Brief period of minimal unsteadiness upon standing before amb 2x 20 feet w/ CG, RW and cueing for sequencing w/ good follow through. Amb was slow andsteady w/ multiple standing rests due to pain. Min A and max cueing provided for stand>sit w/ fair follow. Upon sitting, minimal pain and improved AROM in R knee, >100 degrees. L knee pain was a 7-8/10; 90 degrees of flexion after heel slides, encouragement and AAROM; limited by pain. Pt was left in bed side chair w/ all needs within reach. Min lightheadedness reported throughout session. Nursing updated. Patient Active Problem List Diagnosis Primary localized osteoarthritis of right knee Primary osteoarthritis of left knee Past Medical History: Diagnosis Date Achalasia surgical procedure for correction of same Anxiety Cancer (CMS/HCC) (HCC) right breast Depression GERD (gastroesophageal reflux disease) Hiatal hernia Hypertension Multiple myeloma (HCC) Past Surgical History: Procedure Laterality Date ANKLE FRACTURE SURGERY Left BREAST LUMPECTOMY Right times two CATARACT EXTRACTION W/ INTRAOCULAR LENS IMPLANT Bilateral SECTION, CLASSIC times two JOINT REPLACEMENT Right hip MI TOTAL KNEE ARTHROPLASTY Right 07/20/2024 Procedure: ARTHROPLASTY, KNEE, CONDYLE AND PLATEAU; MEDIAL AND LATERAL COMPARTMENTS WITH OR WITHOUTPATELLA RESURFACING (TOTAL KNEE ARTHROPLASTY); Surgeon: Saqib Santos MD; Location: [facility]; Service: Orthopedics MI TOTAL KNEE ARTHROPLASTY Left 11/09/2024 Procedure: ARTHROPLASTY, KNEE, CONDYLE AND PLATEAU; MEDIAL AND LATERAL COMPARTMENTS WITH OR WITHOUTPATELLA RESURFACING (TOTAL KNEE ARTHROPLASTY); Surgeon: Saqib Santos MD; Location: [facility] OR; Service: Orthopedics SALPINGOOPHORECTOMY Bilateral VARICOSE VEIN SURGERY Bilateral Treatment: Default Flowsheet Data (Last 12 Hours) Adult PT Focused Evaluation/Treatment Row Name 11/10/24904 General Information Patient Profile Review yes General Observations of Patient Sitting in bed side chair Row Name 11/10/24 09 Pain Scale: Numbers Treatment Pain: Pre Treatment (Numbers Scale) 7/10 Pain: Post Treatment (Numbers Scale) 8/10 Pain Location - Side (Numbers Scale) Left Row Name 11/10/24904 Static Standing Balance Static Standing Assistance Contact guard;Minimal assistance Static Standing Extremity Support Bilateral upper extremities;Bilateral lower extremities Static Standing Assistive Devices gait belt;walker, rolling Row Name 11/10/24904 Transfer Assessment/Treatment Sit-Stand [place] level (Transfers) minimum assist (75% patient effort);verbal cues required Stand-Sit [place] level(Transfers) minimum assist (75% patient effort) Uga-Jtpjf-Jbb Assistive Device (Transfers) walker, rolling;gait belt Row Name 11/10/24904 Gait Assessment/Treatment [place] (Gait) contact guard assist;verbal cues required Assistive Device (Gait) walker, rolling;gait belt Distance in Feet (Gait) 2x 20 feet Gait Deviations jf, decreased;step length, decreased;stance time, decreased, left Row Name 11/10/24904 Therapeutic Exercise Lower Extremity Therapeutic Exercise and ROM ankle dorsiflexion-plantar flexion, bilateral;ankle pumps, left;ankle pumps, right;heel slides, bilateral;quad sets, left Exercise Type (Therapeutic Exercise) AROM (active range of motion);AAROM (active assistive range ofmotion) Position (Therapeutic Exercise) seated Sets/Reps (Therapeutic Exercise) 10 Row Name 11/10/24 09 Clinical Impression PT Anticipated Discharge Disposition inpatient facility Row Name 11/10/24 09 Plan of Care Review Plan of Care Reviewed With parent Row Name 11/10/24904 PT Eval/ Treat- Additional Details Document Type Therapy treatment note PT Treatment Received On 11/10/24 Patient Effort good Symptoms Noted During/After Treatment increased pain PT Goal Summary (all recorded) PT Rehab Goal Summary Row Name 11/09/24 1700 Physical Therapy Goals Bed Mobility Goal Selection (PT) bed mobility, PT goal 1 Transfer Goal Selection (PT) transfer, PT goal 1 Gait Training Goal Selection (PT) gait training, PT goal 1 Stairs Goal Selection (PT) stairs, PT goal 1 Row Name 11/09/24 17011/10/24 1200 Bed Mobility Goal 1 (PT) Activity (Bed Mobility Goal 1, PT) rolling to left;rolling to right;scooting;sit to supine/supine to sit -- [place] Level/Cues Needed (Bed Mobility Goal 1, PT) independent -- Assitive Devices (Bed Mobility Goal 1, PT) none -- Time Frame (Bed Mobility Goal 1, PT) 2 days -- Outcomes (Bed Mobility Goal 1, PT) -- goal ongoing [facility] Name 11/09/24 17011/10/24 1200 Transfer Goal 1 (PT) Activity (Transfer Goal 1, PT) igf-eo-cnxtk/smbdl-ad-rzb;geu-yp-hrhso/enxlk-ol-qmz -- [place] Level/Cues Needed (Transfer Goal 1, PT) contact guard assist -- Assitive Devices (Transfer Goal 1, PT) walker, rolling -- Time Frame (Transfer Goal 1, PT) 2 days -- Outcome (Transfer Goal 1, PT) -- goal ongoing [facility] Name 11/09/24 17011/10/24 1200 Gait Training Goal 1 (PT) Activity (Gait Training Goal 1, PT) gait (walking locomotion);diminish gait deviation;forward stepping;improve balance and speed;increase endurance/gait distance;normalize weight shifts -- [place] Level (Gait Training Goal 1, PT) contact guard assist -- Assistive Devices (Gait Training Goal 1, PT) walker, rolling;gait belt -- Distance (Gait Goal 1, PT) 100 ft -- Time Frame (Gait Training Goal 1, PT) 3 days -- Outcome (Gait Training Goal 1, PT) -- goal ongoing Row Name 11/09/24 1700 Stairs Goal 1 (PT) Activity (Stairs Goal 1, PT) ascending stairs;descending stairs;using handrail, left;xpdt-oy-wbhb [place] Level/Cues Needed (Stairs Goal 1, PT) supervision required Assistive Devices (Stairs Goal 1, PT) handrail;cane, straight Number of Stairs (Stairs Goal 1, PT) 4 Time Frame (Stairs Goal 1, PT) 3 days Row Name 11/09/24 1700 Music Pastor Goal (PT) Statement (Music Pastor Goal, PT) Return to PLOF [place] Level (Music Pastor Goal, PT) modified independence Time Frame (Alf Goal, PT) 2 weeks Babita Lawrence PTA Licensure: NED LOU: [id number] * Plan of Care - Fatuma Suarez - 11/10/2024 7:40 AM EST Case Management Admission Note: Pertinent Clinical Resulting in Hospitalization, Level of Care: Patient is a 78 year old female admitted extended recovery with a left knee 2. Patient Living Situation, Current or Past Services/DME: Cm met with patient, she lives alone wither dog. She has a walker, 4 stairs to get in. She has been to Rehab at [facility] in [place] and wasfollowed by Rubina Carey 3. Supports, HCP, Designated Caregiver, Guardian:Patients sons are her Hcp's on file 4. Initial Discharge Planning: Dc to [facility] when medically cleared * Plan of Care - Ashok Welch RN - 11/10/2024 1:24 AM EST Assumed care 1900 - 0700 POD #1 Left knee arthroplasty (11/09/24) Pt requip XL nonformulary, family to bring med in A/O x 4 , sl anxious , cooperative , 1 assist w/ RW . VSS, afebrile , SL patent , denies chestpain . 1 liter nc - wean , cPox. IS, C/DB reinforced . BS + soft , nontender , denies N/V . Voids - BSC .Left knee surgical incision dressing D+I , right knee bandaid dressing D+I . PP+ bilat . Pain management - morphine and percocet , ice pack reinforced. pt c/o twitching sensation , Hx RLS . Safety serafin nforced , call light in reach . PT to follow * Plan of Care - Maliha Banuelos, PT - 11/09/2024 6:00 PM EST Images from the original note were not included. Problem: Adult Inpatient Plan of Care Goal: Plan of Care Review Outcome: Ongoing (interventions implemented as appropriate) Flowsheets (Taken 11/09/2024 6114) Plan of Care Reviewed With: patient Plan of Care Summary: Current PT recommendation is for discharge to in-pt facility once pt medically stable. Will cont to monitor in case of changing dispo needs Physical Therapy Physical Therapy Initial Assessment Patient Name: Lillian Copeland Date of Evaluation: 11/09/2024 Default Flowsheet Data (Last 12 Hours) PT Plan and Recommendation Row Name 11/09/24 1700 Clinical Impression Diagnosis L TKR Prognosis good Patient/Family Goals Statement Go home after rehab stay; I live by myself Criteria for Skilled Therapeutic Interventions Met treatment indicated Pathology/Pathophysiology Noted (Describe Specifically for Each System) musculoskeletal Impairments Found (describe specific impairments) pain;ROM (range of motion);gait, locomotion, and balance;joint integrity and mobility Functional Limitations in Following Categories (Describe Specific Limitations) home management;community/leisure Rehab Potential good, to achieve stated therapy goals Therapy Frequency 2 times/day PT Anticipated Discharge Disposition inpatient facility Plan of Care Review Plan of Care Reviewed With: patient Physical therapy evaluation level based on elements of the patient???s history, examination of bodysystems, clinical presentation, and complexity of clinical decision making, as documented in the EMR, in accordance with CMS CPT code standards. Level of complexity of evaluation : Low Todays recommendations are based on today's PT assessment. Many factors can change a recommendation, including but not limited to, medical course, social situations, cognitive changes, and ability todemonstrate measurable progress with PT. PT recommendations are not a guarantee of eventual discharge plan. Comments: 78 yo female admitted for elective L TKR (R knee manipulation done at same time while under anaesthesia). Lillian had her R knee replaced in Jul 2024 and went to a rehab facility after her surgery; stayed 11 days before returning home with services. She lives by herself in a house with 4 JAKE, has a walker and cane at home. Pt presents in bed after coming from PACU. L knee pain reported ~5/10, R knee pain worse than L. Ptactively assisted with all supine therex (was able to independently do L heel slide into flex~ 105 deg , ~ 85-90 deg on R). Cueing and CTG A transfer out of bed, then amb short distance with RW requiring cueing throughout with correct sequencing. PT appears anxious, slightly shaky, reports dizziness. Requesting back to bed. Vitals stable (standing BP 141/84, HR 84bpm, SpO2 95% room air) Cont to progress BID. (May also benefit from R knee ROM s/p manipulation). Currently recommending d/c to in-pt facility to receive therapies so that she can be safely discharged home. Patient Active Problem List Diagnosis Primary localized osteoarthritis of right knee Primary osteoarthritis of left knee Past Medical History: Diagnosis Date Achalasia surgical procedure for correction of same Anxiety Cancer ([facility]) ([facility]) right breast Depression GERD (gastroesophageal reflux disease) Hiatal hernia Hypertension Multiple myeloma ([facility]) Past Surgical History: Procedure Laterality Date ANKLE FRACTURE SURGERY Left BREAST LUMPECTOMY Right times two CATARACT EXTRACTION W/ INTRAOCULAR LENS IMPLANT Bilateral SECTION, CLASSIC times two JOINT REPLACEMENT Right hip MI TOTAL KNEE ARTHROPLASTY Right 07/20/2024 Procedure: ARTHROPLASTY, KNEE, CONDYLE AND PLATEAU; MEDIAL AND LATERAL COMPARTMENTS WITH OR WITHOUTPATELLA RESURFACING (TOTAL KNEE ARTHROPLASTY); Surgeon: Saiqb Santos MD; Location: [facility]; Service: Orthopedics SALPINGOOPHORECTOMY Bilateral VARICOSE VEIN SURGERY Bilateral Vitals Default Flowsheet Data (Last 12 Hours) Adult PT Evaluation/Treatment Row Name 11/09/24 1700 General Information Patient Profile Review yes General Observations of Patient pt back from surgery, resting in bed comfortably Row Name 03/03/25 1700 Living Environment Lives With alone Living Arrangements house Home Accessibility stairs to enter home Number of Stairs to Enter Home 4 Stair Railings at Home outside, present at both sides Row Name 11/09/241699 Equipment Details Equipment in the home Ambulation (row) Ambulation walker - rolling;cane - straight Equipment Used Prior to Admission -- used RW after L TKR Row Name 11/09/241699 Functional Level Prior Prior Functional Level Comment Mod independent; pt did go to rehab facility after L TKR 4 mos ago Row Name 11/09/24 170 Cognitive Assessment/Intervention Behavior/Mood Observations (Cognitive) behavior appropriate to situation;cooperative Follows Commands/Answers Questions (Cognitive) 100% of the time;needs cueing Orientation Status (Cognitive) oriented x 4 [facility] Name 11/09/241699 Pain Scale Pain Scale Pain Scale: Numbers Pre/Post-Treatment (Group) [facility] 11/09/241699 Pain Scale: Numbers Treatment Pain: Pre Treatment (Numbers Scale) 5/10 Pain: During Treatment (Numbers Scale) 4/10 Pain: Post Treatment (Numbers Scale) 4/10 Pain Location - Side (Numbers Scale) Left Pain Location - Orientation (Numbers Scale) generalized Pain Location - Body (Numbers Scale) knee Multiple Pain Sites (Numbers) Two [facility] Name 11/09/241699 Pain Scale 2 Pain: Pre Treatment 2 5/10 Pain: During Treatment 2 6/10 Pain: Post Treatment 2 6/10 Pain Location 2 - Side Right Pain Location 2 - Orientation generalized;anterior;posterior Pain Descriptors 2 Aching;Tightness [facility] Name 11/09/241699 ROM (Range of Motion) General Range of Motion -- L knee flex~120, ext ~0 deg R knee flex~85 deg Row Name 11/09/241699 MMT (Manual Muscle Testing) Additional Documentation -- Good L quad set, able to move LLE without assist Row Name 11/09/241699 Bed Mobility Assessment/Treatment Scoot/Bridge [place] (Bed Mobility) supervision required Kekrrm-fk-Mca [place] (Bed Mobility) supervision required Impairments (Bed Mobility) pain;ROM (range of motion) decreased;strength decreased Comment (Bed Mobility) pt reports more pain R knee than Row [facility] 11/09/241699 Static Sitting Balance Static Sitting Position sitting, edge of bed Static Sitting Assistance Modified independence Static Sitting Balance Strategies Effective Row Name 11/09/241699 Static Standing Balance Static Standing Position supported Static Standing Assistance Contact guard Static Standing Extremity Support Bilateral lower extremities;Bilateral upper extremities Static Standing Base Normal base Static Standing Balance Strategies Effective Static Standing Assistive Devices walker, rolling;gait belt [facility] Name 11/09/241699 Transfer Assessment/Treatment Sit-Stand [place] level (Transfers) contact guard assist;verbal cues required;nonverbal cues required (demo/gesture) Stand-Sit [place] level(Transfers) contact guard assist;verbal cues required;nonverbal cues required (demo/gesture) Khb-Oohuu-Vcy Assistive Device (Transfers) walker, rolling;gait belt Bed-Chair [place] level (Transfers) not tested pt asking to return to bed Maintain Weight Bearing Status (Transfers) able to maintain weight bearing status Impairments (Transfers) pain;ROM (range of motion) decreased;strength decreased [facility] 11/09/241699 Gait Assessment/Treatment [place] (Gait) contact guard assist;verbal cues required Assistive Device (Gait) walker, rolling;gait belt Distance in Feet (Gait) 15 x 2 Gait Deviations jf, decreased;step length, decreased Maintain Weight Bearing Status (Gait) able to maintain weight bearing status Safety Issues (Gait) sequencing ability decreased Impairments (Gait) pain;ROM (range of motion) decreased;strength decreased Comment (Gait) requires intermittent cueing for sequencing [facility] 11/09/241699 Therapeutic Exercise Lower Extremity Therapeutic Exercise and ROM ankle pumps, left;ankle pumps, right;gluteal sets;heelslides, left;heel slides, right;knee flexion-extension, left;knee flexion-extension, right;quad sets, left Exercise Type (Therapeutic Exercise) AAROM (active assistive range of motion);AROM (active range ofmotion);isometric contraction, static Position (Therapeutic Exercise) supine Sets/Reps (Therapeutic Exercise) 10 [facility] Name 11/09/241699 IP AM-PAC BASIC MOBILITY (Without Stair Climbing) Turning in Bed without Bedrails 3 Lying on Back to Sitting on Edge of Flat Bed 3 Moving Bed to Chair 3 Standing Up from Chair 3 Walk in Room 3 IP Mobility (no stairs) Raw Score 15 CMS 0-100% Score (no stairs) 47.43 % CMS G Code Modifier: current status (G8978) CK T-Scale Score (No Stairs) 43.03 [facility] 03/03/25 1700 Coping Observed Emotional State cooperative;anxious Verbalized Emotional State acceptance Trust Relationship/Rapport care explained;choices provided;emotional support provided;empathic listening provided;questions answered;questions encouraged;reassurance provided;thoughts/feelings acknowledged Family/Support Persons patient Involvement in Care participating in care Row Name 11/09/24 170 Clinical Impression Diagnosis L TKR Prognosis good Patient/Family Goals Statement Go home after rehab stay; I live by myself Criteria for Skilled Therapeutic Interventions Met treatment indicated Pathology/Pathophysiology Noted (Describe Specifically for Each System) musculoskeletal Impairments Found (describe specific impairments) pain;ROM (range of motion);gait, locomotion, and balance;joint integrity and mobility Functional Limitations in Following Categories (Describe Specific Limitations) home management;community/leisure Rehab Potential good, to achieve stated therapy goals Therapy Frequency 2 times/day PT Anticipated Discharge Disposition inpatient facility Row Name 11/09/24 170 Plan of Care Review Plan of Care Reviewed With patient Row Name 11/09/24 170 Rehab Eval/Treat-Additional Details Document Type Initial Evaluation PT Date of Initial Eval/Re-Eval 11/09/24 Patient Effort good Symptoms Noted During/After Treatment increased pain R KNEE pain (not surgical knee) PT Goal Summary (all recorded) PT Rehab Goal Summary Row Name 11/09/24 170 Physical Therapy Goals Bed Mobility Goal Selection (PT) bed mobility, PT goal 1 Transfer Goal Selection (PT) transfer, PT goal 1 Gait Training Goal Selection (PT) gait training, PT goal 1 Stairs Goal Selection (PT) stairs, PT goal 1 Row Name 11/09/24 170 Bed Mobility Goal 1 (PT) Activity (Bed Mobility Goal 1, PT) rolling to left;rolling to right;scooting;sit to supine/supine to sit [place] Level/Cues Needed (Bed Mobility Goal 1, PT) independent Assitive Devices (Bed Mobility Goal 1, PT) none Time Frame (Bed Mobility Goal 1, PT) 2 days Row Name 11/09/24 170 Transfer Goal 1 (PT) Activity (Transfer Goal 1, PT) bqh-dh-nccju/tahmq-fw-yfs;hho-qm-pwzcf/wqlfb-pj-vfg [place] Level/Cues Needed (Transfer Goal 1, PT) contact guard assist Assitive Devices (Transfer Goal 1, PT) walker, rolling Time Frame (Transfer Goal 1, PT) 2 days Row Name 11/09/24 1700 Gait Training Goal 1 (PT) Activity (Gait Training Goal 1, PT) gait (walking locomotion);diminish gait deviation;forward stepping;improve balance and speed;increase endurance/gait distance;normalize weight shifts [place] Level (Gait Training Goal 1, PT) contact guard assist Assistive Devices (Gait Training Goal 1, PT) walker, rolling;gait belt Distance (Gait Goal 1, PT) 100 ft Time Frame (Gait Training Goal 1, PT) 3 days Row Name 11/09/24 1700 Stairs Goal 1 (PT) Activity (Stairs Goal 1, PT) ascending stairs;descending stairs;using handrail, left;ilwq-ja-ewbj [place] Level/Cues Needed (Stairs Goal 1, PT) supervision required Assistive Devices (Stairs Goal 1, PT) handrail;cane, straight Number of Stairs (Stairs Goal 1, PT) 4 Time Frame (Stairs Goal 1, PT) 3 days Row Name 11/09/24 1700 Alf Goal (PT) Statement (Music Pastor Goal, PT) Return to PLOF [place] Level (Alf Goal, PT) modified independence Time Frame (Music Pastor Goal, PT) 2 weeks Maliha Banuelos, PT Lic[place]: [place]: [id number] * Plan of Care - Janeth Elizabeth RN - 11/09/2024 4:02 PM EST Patient admitted from PACU. A/Ox4. Reports pain to bilateral knees, Dressing on L Knee CDI, with slight swelling. +CSM, pedal pulses. Flexeril given. Ice therapy applied. IS encouraged and performed by patient. OOB stand and pivot to commode with 1A RW. Continent of bladder. Reports dizziness whilegetting up, but resolved. Patient oriented to room and call calvillo. PHR, safety maintained. Plan of Care Reviewed With: patient * Perioperative Nursing Note - Arelis Berg RN - 11/09/2024 2:19 PM EST Pt met PACU discharge criteria and had uneventful recovery, report given to RN Ladonna, together surgical site assessed. + CSM, pain management reviewed. Patient received nerve block, no s/s of swollen, bruising or drainage at incision site. Patient able to move legs without any difficulty. Floor orders have been written. Patient oriented to floor/room, call light within reach. * Op Note - Saqib Santos MD - 11/09/2024 10:37 AM EST Images from the original note were not included. Operative Note Patient: Lillian Mohr : 1945 Operative Date: 11/09/2024 Medical Record: [id number] Preop Diagnosis: 1. 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 Arthroplasty, Knee, Condyle & Plateau; Medial & Lateral Compartments (79944) 2. Manipulation of Knee Joint under General Anesthesia (Includes Application of Traction or Other Fixation Devices) (97395) Surgeon: Saqib Santos M.D. Shiatsu Therapist: Anesthesia: Spinal with Regional Block Indications: 78y/o patient who has suffered from significant left knee pain and discomfort. The patient has failed medical management which is included activity modification, intermittent use of anti-inflammatories, and activity modification. X-rays have shown severe multicompartment arthritis and the patient has noted persistent left knee pain that is not responsive to the usual conservative measures. With continued dysfunction that is now affecting everyday activities, this 78y/o patient has now elected to proceed with a knee arthroplasty. Due to the nature of the patient's pain, surgical options were reviewed. The alternatives, risks and benefits of surgery were discussed with the patient and the patient elected to proceed with a total knee arthroplasty. The patient verbalized understanding of the risks as well as the alternatives to surgery. These risks include but are not limited to infection, arthrofibrosis, continued pain, potential wound issues, loss of range, instability, leglength discrepancy, distal neurologic and vascular concerns. Medical risks include but are not limited to DVT/PE, lower leg swelling, bowel concerns, potential cardiovascular events, and postop confusion. After reviewing the risks and benefits, the patient elected to proceed with operative intervention. A signed and witnessed informed consent has been added to the patient's chart. Prior to initiation of the procedure, patient identification and proposed procedure were verified by the patient aswell as by myself in the pre-op area. The operative site was marked by the patient and verified by the surgeon as well as by the operative room staff. Components: Christie Triathlon Tibial Baseplate Size 4 Tritanium, Size 4 triathlon CR Beaded Femoral, Size 32 Mm Metal Backed Patella,9mm CR Tibial Bearing Insert Operative Procedure: The patient was brought to the preop holding area. While still in the holding area, the proposed procedure was reconfirmed and all patient identification was completed. At this time, a block was performed as well as antibiotics were given prior to initiation of the case. Once the block was successfully placed, the patient was brought into the operating room where a general anesthetic was successfully placed. A large bump was placed under the left hip. A well-padded tourniquet applied to the upper left leg, the nonoperative leg had a Venodyne boot applied to the lower leg and was carefully padded to ensure no bony prominences would be jeopardized. We then prepped and draped the left knee in the usual manner. A timeout was performed and accepted by all inside the room. With the timeout completed we began the procedure. We first began with a gentle manipulation of her previously replaced right knee. Prior to the manipulation, she passively ranged to approximately 85 degrees. Post gentle manipulation she ranged to 120 degrees. We then injected the knee with a 80 mg Depo-Medrol and Marcaine mixture. We then directed our attention towards the now to be replaced left knee. We first used an Esmarch to exsanguinate the limb. We made a standard anterior midline incision extending from the superior aspect of the patella to the tibial tubercle. We then performed a standard medial parapatellar approach. We carefully debrided as much soft tissue as we could easily reach. The ACL was debrided, as wellas the medial and lateral menisci. We carefully examined the knee as anticipated, there was changesparticular involving the lateral compartment. We did a medial release extending from the tibial tubercle along the medial aspect of the proximal tibia. We took great care not to damage the medial collateral ligament, this remained intact throughout the procedure. With the medial release not completed and is much debridement required at this point we cannot prepare the surfaces to accept a new implant. We elected to prepare the distal femur first. We gained access to the medullary canal of the femur by using the universal dairy truck driver. We found the location for the IM drill hole approximate 1 cm anteriorto the femoral attachment of the posterior cruciate ligament is slightly medial to the midline of the distal femur. We then attached the T-handled dairy truck driver to the 516s IM devin and inserted the devin into the femoral alignment guide. The femoral alignment guide was set to be used on the left knee with approximately 6?? of valgus. We then placed the universal resection guide onto the adjustment block and pinned the resection guide to the anterior cortex of the distal femur. We had planned to resect ashly roximately 8 mm off the distal femur. With the pin block securely attached to the femur, we then resected the distal femur. We used the option modular capture for the resection. We then assembled thefemoral sizer, set the rotation to left, and then checked the alignment by assessing the epicondyles as well as Whitesides line. After confirming the rotation, we position the assembly flushed on theresected distal femur, and then use the femoral stylist to help determine the appropriate implant size. Once the implant size was determined we then checked our selection by using a Bladerunner. We then remove the assembly and replaced it with the 4: 1 cutting block. The cutting block was pinned inplace, and the anterior chamfer and posterior cuts were completed. Again, great care was avoid damaging the medial collateral ligament by placing a knee retractors to protect ligament. We also were careful not to resect the posterior condyles to deeply to avoid damaging any of the posterior structures. And is typical, the resections were done in flexion to again to keep the posterior structures well away from the resections. We felt that a posterior cruciate sacrificing component would not be required with this patient, so the posterior cruciate box was not prepared. With completion of the resection of the posterior femur, a trial component was placed and seemed tofit quite nicely. We completed preparation of the distal femur by using the quarter-inch peg drill to create the modular femoral distal fixation peg holes. We then removed the trial femoral componentand direct attention towards the proximal tibia. Tibial preparation was aided with the use of the internal tibial alignment resection guide. We assembled the tibial resection guide and then gained access to the medullary canal with a large bore drill. We attached the intramedullary devin to the tibial resection guide, we planned on resecting 2 mm off the medial plateau. We pinned the guide in place, and again protecting the medial collateral ligament, we resected approximately tibia. We are quite pleased about the resection. We reassured that the posterior cruciate ligament had not been damaged with resection. We then assessed the proximal tibia resected surface and chose the appropriate tibial component baseplate. We placed our trial femoral component, placed the trial tibial component, and estimated a trial insert. The knee was taken through range of motion to help determine appropriate tibial alignment. Thisalso help determine what we thought would be our final tibial insert size. We were easily able to obtain full extension and flexion beyond 110?? for liftoff. We pinned in situ the tibial baseplate, and then removed the femoral component and tibial modular insert. The knee was once again placed into extreme flexion, we assembled the keel punch guide and with great care carefully impacted the tibial keel punch. We were somewhat concerned about the medial cortexof the proximal tibia, using the oscillating saw to ensure that we would not disrupt the medial cortex of the proximal tibia. We are able to easily impact the keel punch without damaging the cortex on the medial or on the lateral side. We then removed the headless pins as well as the trial tibial tray. Patella was prepared by first assessing natural patella thickness, we then freehand resected the undersurface of the patella to approximately 12-14 mm of thickness. We trialed a number of patella sizes until optimal patella size was achieved. This was then held in place well the 3 fixation holes were then drilled to the prepared patella surface. We once again trialed the components, we are pleased about patella tracking, we are also pleased about the flexion extension gaps. Because of the patient's bone quality we elected to proceed with a cementless total knee replacement. We completed the final preparation of the proximal tibia to accept the cementless tibial component. We pulse lavaged surfaces, and then impacted in place the components sequentially starting with thetibia, the distal femur, and finally the patella component. With completion of the final impaction of the implants we chose our final tibial bearing surface and began closure of the incisions. We began by first closing the medial parapatellar incision using #2 Quill sutures, the deeper layers were closed with #0 Quill sutures, and finally skin was closed with a running #2 oh Quill suture. We used Dermabond Prineo completed the dressing. The tourniquet was released. The patient was awakened and sent to recovery room awake alert good condition. Signed Saqib Santos M.D. documented in this encounter Plan of Treatment Upcoming Encounters Date Type Department Care Team (Late st Contact Info) Description 12/03/2024 1:15 PM EDT Follow-Up [facility] [address] [facility] [address] [place] [address] Saqib Santos J.P., MD [address] [place] [id number] documented as of this encounter Procedures * Due to [place] [employer] law, this organization might not be sharing negative HIV tests. Procedure Name Priority Date/Time Associated Diagnosis Comments CBC AUTO DIFFERENTIAL Routine 11/10/2024 10:17 AM EST BASIC METABOLIC PANEL Routine 11/10/2024 10:17 AM EST XR KNEE 1 OR 2 VW LEFT Routine 11/09/2024 1:17 PM EST TISSUE EXAM Routine 11/09/2024 10:55 AM EST Primary osteoarthritis of left knee MI TOTAL KNEE ARTHROPLASTY 11/09/2024 9:44 AM EST Primary osteoarthritis of left knee Special Needs OSTEONICS/CHRISTIE documented in this encounter Results * Due to [place] [employer] law, this organization might not be sharing negative HIV tests. * (ABNORMAL) CBC Auto Differential (11/10/2024 10:17 AM EST) WBC 10.2 3.8 - 10.8 10*3/uL 11/10/2024 11:23 AM [facility] RBC 3.78(L) 3.80 - 5.10 10*6/uL 11/10/2024 11:23 AM [facility] Hemoglobin 11.1(L) 11.7 - 15.5 g/dL 11/10/2024 11:23 AM [facility] Hematocrit 34.6(L) 35.0 - 45.0 % 11/10/2024 11:23 AM [facility] MCV 91.5 80.0 - 100.0 fL 11/10/2024 11:23 AM [facility] MCH 29.4 27.0 - 33.0 pg 11/10/2024 11:23 AM [facility] MCHC 32.1 32.0 - 36.0 g/dL 11/10/2024 11:23 AM [facility] RDW 14.0 11.0 - 15.0 % 11/10/2024 11:23 AM [facility] Platelets 183 140 - 400 10*3/uL 11/10/2024 11:23 AM [facility] MPV 9.6 7.5 - 12.5 fL 11/10/2024 11:23 AM [facility] Neutrophil % 87.7 % 11/10/2024 11:23 AM [facility] Immature Grans % 0.4 0.0 - 0.9 % 11/10/2024 11:23 AM [facility] Lymphocyte % 5.6 % 11/10/2024 11:23 AM [facility] Monocyte % 6.2 % 11/10/2024 11:23 AM [facility] Eosinophil % 0.0 % 11/10/2024 11:23 AM EST [facility] Basophil % 0.1 % 11/10/2024 11:23 AM EST [facility] Neutrophil # 8.90(H) 1.50 - 7.80 10*3/uL 11/10/2024 11:23 AM EST [facility] Immature Grans # 0.04(H) <=0.03 10*3/uL 11/10/2024 11:23 AM EST [facility] Lymphocyte # 0.60(L) 0.85 - 3.90 10*3/uL 11/10/2024 11:23 AM EST [facility] Monocyte # 0.60 0.20 - 0.95 10*3/uL 11/10/2024 11:23 AM EST [facility] Eosinophil # <0.03 0.02 - 0.50 10*3/uL 11/10/2024 11:23 AM EST [facility] Basophil # <0.03 0.00 - 0.20 10*3/uL 11/10/2024 11:23 AM [facility] nRBC % 0.0 /100 WBCs 11/10/2024 11:23 AM [facility] nRBC # <0.01 <0.01 10*3/uL 11/10/2024 11:23 AM [facility] Blood Structure of peripheral vein / Unknown Venipuncture / Unknown 11/10/2024 10:17 AM EST 11/10/2024 10:32 AM EST us Saqib Santos MD LAB BLOOD ORDERABLES Final R esult [facility] [address] [place] [address], [place] * (ABNORMAL) Basic Metabolic Panel (11/10/2024 10:17 AM EST) NA 135 135 - 145 mmol/L 11/10/2024 11:10 AM [facility] K 4.7 3.5 - 5.3 mmol/L 11/10/2024 11:10 AM [facility] Cl 100 98 - 107 mmol/L 11/10/2024 11:10 AM [facility] CO2 25 22 - 32 mmol/L 11/10/2024 11:10 AM [facility] BUN 17 7 - 23 mg/dL 11/10/2024 11:10 AM [facility] Creatinine 1.13 0.50 - 1.20 mg/dL 11/10/2024 11:10 AM [facility] Glucose 256(H) 65 - 99 mg/dL 11/10/2024 11:10 AM [facility] Calcium 8.7 8.6 - 10.5 mg/dL 11/10/2024 11:10 AM [facility] Anion Gap 10 5 - 15 11/10/2024 11:10 AM [facility] eGFR 50(L) >=60 mL/min/1. 73m2 11/10/2024 11:10 AM [facility] Comment:The estimated glomer ular filtration rate [...] 10:17 AM EST 11/10/2024 10:32 AM EST Saqib Santos MD LAB BLOOD ORDERABLES Final R esult Performing Organization Address City/State/[facility] Co de Phone Number [facility] [address] [place] [address], [place] * X-Ray Knee Left 1 or [...] obtain the completed interpretation. ? Workstation ID: [id number] Narrative 11/09/2024 2:58 PM EST COMPARISON: ??06/04/2024. ?? FINDINGS AND Resulting Agency Comment [id number] Procedure Note Marlena Lakhani MD - 11/09/2024 [...] possible to obtain thecompleted interpretation. Workstation ID: [id number] Saqib Santos MD IMG XR PROCEDURES Final Resu lt * Tissue Exam (11/09/2024 10:55 AM EST) Final Diagnosis Bone and Tissue, Left Knee: - Osteoarthritis with osteophyte formation and bony eburnation. [facility] 11/16/2024 12:54 PM EDT [facility] at 1254 EDT Clinical History Pre-op diagnosis: Primary osteoarthritis of left knee [M17.12] [facility] 11/16/2024 12:54 PM EDT [facility] [employer] [facility] Gross Description 1. [...] osteophyte formation. The margins are flat. A employment program representative section is submitted in cassette 1A after fixation and decalcification. [facility] 11/16/2024 12:54 PM EDT [facility] Gross Description User Grossing complete by Patel Sutherland on 11/09/2024 3:23 PM [facility] 11/16/2024 12:54 PM EDT [facility] [employer] [facility] Embedded Images [facility] 11/16/2024 12:54 PM EDT [facility] [employer] [facility] Resulting Agency Case was signed out at [facility], Department of Pathology, [employer] 3 CLIA [id number] [facility] 11/16/2024 12:54 PM EDT [facility] [employer] [facility] Report Header Surgical Pathology Report ? Case: [id number] ? Authorizing Provider: ??Saqib Santos MD ? Collected: ? 11/09/2024 1055 ? Ordering Location: ? [facility]- ?Received: ?11/09/2024 1308 ? [facility] ? Surgery ? Pathologist: ? Campos Saini MD ? Specimen: ?Knee, Left, LEFT KNEE BONE AND TISSUE ? 11/16/2024 12:54 PM EDT [facility] Bone Structure of left knee region / Unknown 11/09/2024 10:55 AM EST 11/09/2024 1:08 PM EST Comment:Pre-op diagnosis: Primary osteoarthritis of left knee [M17.12] us Saqib Santos MD LAB PATHOLOGY/CYTOLOGY ORDER DAREN Final Result [facility] [address] [place] [id number], documented in this encounter Visit Diagnoses Diagnosis Primary osteoarthritis of left knee- Primary Primary osteoarthritis of left knee Primary localized osteoarthritis of right knee Primary osteoarthritis of left knee documented in this encounter Admitting Diagnoses Diagnosis Primary osteoarthritis of left knee documented in this encounter Administered Medications Inactive Administered Medications - up to 3 most recent administrations Medication Order MAR Action Action Date Dose Rate Site acyclovir (ZOVIRAX) tablet 400 mg 400 mg, oral, 2 times daily, First dose (after last modification) on Sat11/11/24 at 0900, Until Discontinued, Reason for Therapy: Prophylaxis Given 11/12/2024 3:52 PM EST 400 mg Given 11/12/2024 7:45 AM EST 400 mg Given 11/11/2024 4:51 PM EST 400 mg acyclovir (ZOVIRAX) tablet 400 mg 400 mg, oral, Once, On Sat11/10/24 at 2100, 1 dose, Reason for Therapy: Prophylaxis Given 11/10/2024 8:49 PM EST 400 mg benzocaine-menthoL (CEPACOL) lozenge 1 lozenge 1 lozenge, mucous membrane, Every 2 hour PRN, sore throat, Starting on Sat11/11/24 at 2351, Until Sat11/12/24 at 1820 Given 11/11/2024 11:56 PM EST 1 lozenge or al bupivacaine liposome PF (EXPAREL) 1.33% (13.3 mg/mL) injection 20 mL 20 mL (266 mg), infiltration, Once, On Sat11/09/24 at 0945, 1 dose, Intra-op, Reason for Therapy: Hip or knee procedure Given 11/09/2024 11:20 AM EST 266 mg Left Knee bupivacaine-EPINEPHrine PF (MARCAINE w/EPI) 0.5%-1:200,000 injection As needed, Starting on Sat11/09/24 at 1020, Until Sat11/09/24 at 1222, Intra-op Given 11/09/2024 11:28 AM EST 26 mL Le ft Knee Given 11/09/2024 10:20 AM EST 4 mL L eft Knee cyclobenzaprine (FLEXERIL) tablet 5 mg 5 mg, oral, Every 8 hours PRN, muscle spasms, Starting on Sat11/09/24 at 1201, Until Sat11/12/24 at 1820 Given 11/11/2024 11:56 PM EST 5 mg oral Given 11/11/2024 8:35 AM EST 5 mg Given 11/10/2024 7:57 PM EST 5 mg diphenhydrAMINE (BENADRYL) capsule 25 mg 25 mg, oral, Every 6 hours PRN, itching, Starting on Sat11/09/24 at 1201, Until Sat11/12/24 at 1820 Given 11/12/2024 2:09 PM EST 25 mg Given 11/11/2024 8:01 PM EST 25 mg Given 11/11/2024 4:59 PM EST 25 mg docusate sodium (COLACE) capsule 100 mg 100 mg, oral, 2 times daily, First dose on Sat11/09/24 at 1700, Until Discontinued Given 11/12/2024 3:52 PM EST 100 m g Given 11/12/2024 7:45 AM EST 100 mg Given 11/11/2024 4:49 PM EST 100 mg gabapentin (NEURONTIN) capsule 400 mg 400 mg, oral, Every 12 hours scheduled, First dose on Sat11/10/24 at 2100, Until Discontinued Given 11/12/2024 7:45 AM EST 400 mg Given 11/11/2024 8:00 PM EST 400 mg Given 11/11/2024 8:36 AM EST 400 mg guaiFENesin (ROBITUSSIN) 100 mg/5 mL syrup 200 mg 200 mg, oral, Every 4 hours PRN, cough, Starting on Sat11/11/24 at 2351, Until Sat11/12/24 at 1820 methylPREDNISolone acetate (DEPO-Medrol) injection 80 mg 80 mg, intramuscular, Once, On Sat11/09/24 at 0945, 1 dose, Intra-op Given 11/09/2024 10:20 AM EST 80 mg Left Knee miconazole 2% powder topical, 2 times daily PRN, itching, Rash, Starting on Sat11/09/24 at 2100, Until Sat11/12/24 at 1820, Apply to affected areas. Given 11/11/2024 2:14 PM EST morphine injection 1 mg 1 mg, intravenous, Every 2 hour PRN, Moderate pain or 4-6 (on the numeric pain scale), Starting on Sat11/09/24 at 1201, Until Sat11/12/24 at 1820, Assess pain, sedation, and respiratory rate prior to each opioid administration. Given 11/11/2024 8:01 PM EST 1 mg Given 11/11/2024 4:51 PM EST 1 mg morphine injection 2 mg 2 mg, intravenous, Every 2 hour PRN, Moderate pain or 4-6 (on the numeric pain scale), Starting on Sat11/09/24 at 1201, Until Camila 11/12/24 at 1820, Assess pain, sedation, and respiratory rate prior to each opioid administration. morphine injection 3 mg 3 mg, intravenous, Every 2 hour PRN, Severe pain or 7-10 (on the numeric pain scale), Starting on Sat11/09/24 at 1203, Until Camila 11/12/24 at 1820, Assess pain, sedation, and respiratory rate prior to each opioid administration. Given 11/10/2024 4:17 AM EST 3 mg Given 11/10/2024 1:51 AM EST 3 mg morphine injection 6 mg 6 mg, intravenous, Every 2 hour PRN, Severe pain or 7-10 (on the numeric pain scale), Starting on Sat11/09/24 at 1203, Until Sat11/12/24 at 1820, Assess pain, sedation, and respiratory rate prior to each opioid administration. Given 11/11/2024 1:49 PM EST 6 mg Given 11/11/2024 8:31 AM EST 6 mg ondansetron (ZOFRAN) injection 4 mg 4 mg, intravenous, Every 8 hours PRN, nausea, vomiting, Starting on Sat11/09/24 at 1201, Until Camila 11/12/24 at 1820 Given 11/11/2024 8:29 AM EST 4 mg Given 11/10/2024 3:41 PM EST 4 mg oxyCODONE-acetaminophen (PERCOCET) 5-325 mg 2 tablet 2 tablet, oral, Every 4 hours PRN, Moderate pain or 4-6 (on the numeric pain scale), Starting on Sat11/09/24 at 1204, Until Sat11/12/24 at 1820, Assess pain, sedation, and respiratory rate prior to each opioid administration. Given 11/12/2024 3:52 PM EST 2 tablets Given 11/12/2024 12:05 PM EST 2 tablets Given 11/12/2024 7:46 AM EST 2 tablets povidone-iodine 5% topical solution topical, Once, On Sat11/09/24 at 0945, 1 dose, Pre-op, Before application use clean tissue to clean inside and tip of nostril. Apply to left and right nostril by following the 3M instructions. Repeat application in both nostrils using new swabs (swab 3 and 4). Nose can be dabbed lightly if dripping. Do not blow nose. Given 11/09/2024 9:35 AM EST 1 each rivaroxaban (XARELTO) tablet 10 mg 10 mg, oral, Daily, First dose on Sat11/10/24 at 0900, Until Discontinued, Administer with food. Do not hold dose if patient does not eat. May be crushed and mixed with 50 mL of water for enteral administration., Contraindications: Active pathological bleeding, mechanical valve or moderate to severe mitral stenosis, triple positive antiphospholipid syndrome, /: No contraindications, Indication: Other (specify), Specify: VTE chemoprophylaxis, Is this a new start? New Start Given 11/12/2024 7:45 AM EST 10 mg Given 11/11/2024 8:36 AM EST 10 mg Given 11/10/2024 8:45 AM EST 10 mg rOPINIRole (REQUIP) tablet 6 mg 6 mg, oral, Nightly, First dose on Sat11/10/24 at 2100, Until Discontinued Given 11/11/2024 10:08 PM EST 6 mg Given 11/10/2024 7:56 PM EST 6 mg senna (SENOKOT) tablet 17.2 mg 17.2 mg, oral, Nightly, First dose on Sat11/09/24 at 2100, Until Discontinued Given 11/11/2024 8:00 PM EST 17.2 mg Given 11/10/2024 7:57 PM EST 17.2 mg Given 11/09/2024 9:37 PM EST 17.2 mg sodium chloride 0.9% (NS) premix infusion intravenous, at 100 mL/hr, Continuous, Starting on Sat11/09/24 at 0800, Until Sat11/12/24 at 1820, Pre-op New Bag/Syringe 11/09/2024 9:35 AM EST sodium chloride 0.9% flush 2.5-10 mL 2.5-10 mL, intravenous, See admin instructions, Starting on Sat11/09/24 at 1201, Until Sat11/12/24 at 1820, Flush each lumen with a pulsatile motion with a minimum of 2.5 mL before and after use. Please note which lumen(s) have been flushed in comments section. Given 11/11/2024 11:57 PM EST 10 mL Right Forearm sodium chloride 0.9% flush 2.5-10 mL 2.5-10 mL, intravenous, Every 12 hours scheduled, First dose on Sat11/09/24 at 1800, Until Discontinued, Flush each lumen with a pulsatile motion with a minimum of 2.5 mL every 12 hours. Please note which lumen(s) have been flushed in comments section. Given 11/12/2024 7:48 AM EST 10 mL Given 11/11/2024 4:46 PM EST 10 mL Given 11/10/2024 7:58 PM EST 10 mL sodium chloride 0.9% irrigation solution As needed, Starting on Sat11/09/24 at 1037, Until Sat11/09/24 at 1222, Intra-op Given 11/09/2024 10:37 AM EST 1,000 mL Left Knee traZODone (DESYREL) tablet 100 mg 100 mg, oral, Nightly, First dose on Sat11/10/24 at 0045, Until Discontinued Given 11/11/2024 10:08 PM EST 100 mg Given 11/10/2024 7:57 PM EST 100 mg Given 11/10/2024 12:45 AM EST 100 mg documented in this encounter Active and Recently Administered Medications Times are shown in EST. Scheduled Medication Order 11/10/2024 11/11/2024 11/12/2024 acyclovir (ZOVIRAX) tablet 400 mg 400 mg, oral, 2 times daily, First dose (after last modification) on Sat11/11/24 at 0900, Until Discontinued, Reason for Therapy: Prophylaxis 0900 (Given - Provider: Jordyn Fitzgerald RN)1651 (Given - Provider: Sandra Barroso RN) 0745 (Given - Provider: Jill Corea RN)1552 (Given - Provider: Jill Corea RN) acyclovir (ZOVIRAX) tablet 400 mg (COMPLETED) 400 mg, oral, Once, On Sat11/10/24 at 2100, 1 dose, Reason for Therapy: Prophylaxis 2048 (Given - Provider: Arnold King RN) diphenhydrAMINE (BENADRYL) capsule 50 mg 50 mg, oral, Once, On Sat11/11/24 at 1445, 1 dose 1900 (Not Given - Provider: Sandra Barroso RN - Reason: Other - See Comment) docusate sodium (COLACE) capsule 100 mg 100 mg, oral, 2 times daily, First dose on Sat11/09/24 at 1700, Until Discontinued 0845 (Given - Provider: Ladonna Verma RN)1541 (Given - Provider: Ladonna Verma RN) 0835 (Given - Provider: Jordyn Fitzgerald RN)164 (Given - Provider: Sandra Barroso RN) 0745 (Given - Provider: Jill Corea RN)155 (Given - Provider: Jill Corea RN) gabapentin (NEURONTIN) capsule 400 mg 400 mg, oral, Every 12 hours scheduled, First dose on Sat11/10/24 at 2100, Until Discontinued 2048 (Given - Provider: Arnold King RN) 0836 (Given - Provider: Jordyn Fitzgerald RN)1999 (Given - Provider: Sandra Barroso RN) 0745 (Given - Provider: Jill Corea RN) rivaroxaban (XARELTO) tablet 10 mg 10 mg, oral, Daily, First dose on Sat11/10/24 at 0900, Until Discontinued, Administer with food. Do not hold dose if patient does not eat. May be crushed and mixed with 50 mL of water for enteral administration., Contraindications: Active pathological bleeding, mechanical valve or moderate to severe mitral stenosis, triple positive antiphospholipid syndrome, /: No contraindications, Indication: Other (specify), Specify: VTE chemoprophylaxis, Is this a new start? New Start 0845 (Given - Provider: Ladonna Verma RN) 0836 (Given - Provider: Jordyn Fitzgerald RN) 0745 (Given - Provider: Jill Corea, STACEY) rOPINIRole (REQUIP) tablet 6 mg 6 mg, oral, Nightly, First dose on Sat11/10/24 at 2100, Until Discontinued 1955 (Given - Provider: Arnold King RN) 2207 (Given - Provider: Sandra Barroso, STACEY) senna (SENOKOT) tablet 17.2 mg 17.2 mg, oral, Nightly, First dose on Sat11/09/24 at 2100, Until Discontinued 1956 (Given - Provider: Arnold King RN) 1999 (Given - Provider: Sandra Barroso RN) sodium chloride 0.9% flush 2.5-10 mL(Linked Group 1) 2.5-10 mL, intravenous, See admin instructions, Starting on Sat11/09/24 at 1201, Until Sat11/12/24 at 1820, Flush each lumen with a pulsatile motion with a minimum of 2.5 mL before and after use. Please note which lumen(s) have been flushed in comments section. 2356 (Given - Provider: Kevin Dominguez RN) sodium chloride 0.9% flush 2.5-10 mL(Linked Group 1) 2.5-10 mL, intravenous, Every 12 hours scheduled, First dose on Sat11/09/24 at 1800, Until Discontinued, Flush each lumen with a pulsatile motion with a minimum of 2.5 mL every 12 hours. Please note which lumen(s) have been flushed in comments section. 0515 (Given - Provider: Ashok Welch RN)1957 (Given - Provider: Arnold King RN) 0600 (Not Given - Provider: Arnold King RN - Reason: Other - See Comment - Comment: Duplicate)164 (Given - Provider: Sandra Barroso RN) 0748 (Given - Provider: Jill Corea, STACEY) traZODone (DESYREL) tablet 100 mg 100 mg, oral, Nightly, First dose on Sat11/10/24 at 0045, Until Discontinued 44 (Given - Provider: Ashok Welch RN)1957 (Given - Provider: Arnold King, STACEY) 2208 (Given - Provider: Sandra Barroso RN) Continuous Medication Order 11/10/2024 11/11/2024 11/12/2024 sodium chloride 0.9% (NS) premix infusion intravenous, at 100 mL/hr, Continuous, Starting on Sat11/09/24 at 0800, Until Sat11/12/24 at 1820, Pre-op PRN Medication Order 11/10/2024 11/11/2024 11/12/2024 aluminum-magnesium hydroxide-simethicone (MAALOX PLUS) 200-200-20 mg/5 mL suspension 30 mL 30 mL, oral, Every 6 hours PRN, indigestion, heartburn, Starting on Sat11/09/24 at 1201, Until Camila 11/12/24 at 1820 benzocaine-menthoL (CEPACOL) lozenge 1 lozenge 1 lozenge, mucous membrane, Every 2 hour PRN, sore throat, Starting on Sat11/11/24 at 2351, Until Camila 11/12/24 at 1820 2356 (Given - Provider: Kevin Dominguez, STACEY) bisacodyL (DULCOLAX) suppository 10 mg 10 mg, rectal, Daily PRN, constipation, no bowel movement x 48 hours, Starting on Sat11/09/24 at 1201, Until Camila 11/12/24 at 1820 cyclobenzaprine (FLEXERIL) tablet 5 mg 5 mg, oral, Every 8 hours PRN, muscle spasms, Starting on Sat11/09/24 at 1201, Until Camila 11/12/24 at 1820 0045 (Given - Provider: Ashok Welch, STACEY)0845 (Given - Provider: Ladonna Verma, STACEY)1957 (Given - Provider: Arnold King, STACEY) 0835 (Given - Provider: Jordyn Fitzgerald RN)2356 (Given - Provider: Kevin Dominguez, STACEY) diphenhydrAMINE (BENADRYL) capsule 25 mg 25 mg, oral, Every 6 hours PRN, itching, Starting on Sat11/09/24 at 1201, Until Camila 11/12/24 at 1820 0846 (Given - Provider: Jordyn Fitzgerald RN)141 (Given - Provider: Jordyn Fitzgerald RN - Comment: notified MD of 2nd dose)1658 (Given - Provider: Sandra Barroso RN)2000 (Given - Provider: Sandra Barroso RN) 1409 (Given - Provider: Jill Corea RN) guaiFENesin (ROBITUSSIN) 100 mg/5 mL syrup 200 mg 200 mg, oral, Every 4 hours PRN, cough, Starting on Sat11/11/24 at 2351, Until Camila 11/12/24 at 1820 miconazole 2% powder topical, 2 times daily PRN, itching, Rash, Starting on Sat11/09/24 at 2100, Until Camila 11/12/24 at 1820, Apply to affected areas. 141 (Given - Provider: Jordyn Fitzgerald RN) morphine injection 1 mg(Linked Group 2) 1 mg, intravenous, Every 2 hour PRN, Moderate pain or 4-6 (on the numeric pain scale), Starting on Sat11/09/24 at 1201, Until Camila 11/12/24 at 1820, Assess pain, sedation, and respiratory rate prior to each opioid administration. 1650 (Given - Provider: Sandra Barroso RN)2000 (Given - Provider: Sandra Barroso RN) morphine injection 2 mg(Linked Group 2) 2 mg, intravenous, Every 2 hour PRN, Moderate pain or 4-6 (on the numeric pain scale), Starting on Sat11/09/24 at 1201, Until Camila 11/12/24 at 1820, Assess pain, sedation, and respiratory rate prior to each opioid administration. 1650 (See Alternative - Provider: Sandra Barroso RN)2000 (See Alternative - Provider: Sandra Barroso RN) morphine injection 3 mg(Linked Group 3) 3 mg, intravenous, Every 2 hour PRN, Severe pain or 7-10 (on the numeric pain scale), Starting on Sat11/09/24 at 1203, Until Camila 11/12/24 at 1820, Assess pain, sedation, and respiratory rate prior to each opioid administration. 0151 (Given - Provider: Ashok Welch RN)0417 (Given - Provider: Ashok Welch RN) 0831 (See Alternative - Provider: Jordyn Fitzgerald RN)1349 (See Alternative - Provider: Jordyn Fitzgerald RN)1948 (See Alternative - Provider: Sandra Barroso RN) morphine injection 6 mg(Linked Group 3) 6 mg, intravenous, Every 2 hour PRN, Severe pain or 7-10 (on the numeric pain scale), Starting on 11/09/24 at 1203, Until Camila 11/12/24 at 1820, Assess pain, sedation, and respiratory rate prior to each opioid administration. 0151 (See Alternative - Provider: Ashok Welch RN)0417 (See Alternative - Provider: Ashok Welch RN) 0831 (Given - Provider: Jordyn Fitzgerald RN)134 (Given - Provider: Jordyn Fitzgerald RN)1948 (Not Given - Provider: Sandra Barroso RN - Reason: Other - See Comment - Comment: decided to lower dose) naloxone (NARCAN) injection 0.04 mg 0.04 mg, intravenous, Every 3 minutes as needed, opioid reversal, respiratory depression, Starting on Sat11/09/24 at 1203, Until Camila 11/12/24 at 1820, Partial opioid reversal for respiratory rate 9 or less AND (POSS 3 or RASS -1 or less). Notify provider if naloxone is administered to evaluate the patient to determine if additional naloxone doses are needed and to reevaluate the patient's opioid orders. naloxone (NARCAN) injection 0.4 mg 0.4 mg, intravenous, Every 2 hour PRN, opioid reversal, respiratory depression, Starting on Sat11/09/24 at 1203, Until Camila 11/12/24 at 1820, Complete opioid reversal for respiratory rate 9 or less AND (POSS 4 or RASS -2 or less). Notify provider if naloxone is administered to evaluate the patient to determine if additional naloxone doses are needed and to reevaluate the patient's opioid orders. ondansetron (ZOFRAN) injection 4 mg 4 mg, intravenous, Every 8 hours PRN, nausea, vomiting, Starting on 11/09/24 at 1201, Until Camila 11/12/24 at 1820 1541 (Given - Provider: Ladonna Verma RN) 0829 (Given - Provider: Jordyn Fitzgerald RN) oxyCODONE-acetaminophen (PERCOCET) 5-325 mg 1 tablet 1 tablet, oral, Every 4 hours PRN, Mild pain or 1-3 (on the numeric pain scale), Starting on Sat11/09/24 at 1204, Until Camila 11/12/24 at 1820, Assess pain, sedation, and respiratory rate prior to each opioid administration. oxyCODONE-acetaminophen (PERCOCET) 5-325 mg 2 tablet 2 tablet, oral, Every 4 hours PRN, Moderate pain or 4-6 (on the numeric pain scale), Starting on Sat11/09/24 at 1204, Until Camila 11/12/24 at 1820, Assess pain, sedation, and respiratory rate prior to each opioid administration. 0512 (Given - Provider: Ashok Welch RN)1106 (Given - Provider: Ladonna Verma RN)1522 (Given - Provider: Ladonna Verma RN)1957 (Given - Provider: Arnold King RN) 0033 (Given - Provider: Arnold King RN)2355 (Given - Provider: Kevin Dominguez RN) 0746 (Given - Provider: Jill Corea RN)1205 (Given - Provider: Jill Corea RN)1552 (Given - Provider: Jill Corea RN - Comment: admin 13 minutes early, patient leaving via ambulance to [facility], [address], needs pain relief) Linked Groups Order Group 1: IV Peripheral Line Care (CANCELED) Until discontinued, Starting on Sat11/09/24 at 1202, Until Specified, Insert/Replace: 96 hours for non-flexion, sterile IVs, 48 hours for flexion IVs, and 24 hours for non-sterile field IVs, Blood Draw: With insertion only And sodium chloride 0.9% flush 2.5-10 mLJump to med 2.5-10 mL, intravenous, See admin instructions, Starting on Sat11/09/24 at 1201, Until Camila 11/12/24 at 1820, Flush each lumen with a pulsatile motion with a minimum of 2.5 mL before and after use. Please note which lumen(s) have been flushed in comments section. And sodium chloride 0.9% flush 2.5-10 mLJump to med 2.5-10 mL, intravenous, Every 12 hours scheduled, First dose on Sat11/09/24 at 1800, Until Discontinued, Flush each lumen with a pulsatile motion with a minimum of 2.5 mL every 12 hours. Please note which lumen(s) have been flushed in comments section. Group 2: morphine injection 1 mgJump to med 1 mg, intravenous, Every 2 hour PRN, Moderate pain or 4-6 (on the numeric pain scale), Starting on Sat11/09/24 at 1201, Until Camila 11/12/24 at 1820, Assess pain, sedation, and respiratory rate prior to each opioid administration. Or morphine injection 2 mgJump to med 2 mg, intravenous, Every 2 hour PRN, Moderate pain or 4-6 (on the numeric pain scale), Starting on Sat11/09/24 at 1201, Until Camila 11/12/24 at 1820, Assess pain, sedation, and respiratory rate prior to each opioid administration. Group 3: morphine injection 3 mgJump to med 3 mg, intravenous, Every 2 hour PRN, Severe pain or 7-10 (on the numeric pain scale), Starting on Sat11/09/24 at 1203, Until Camila 11/12/24 at 1820, Assess pain, sedation, and respiratory rate prior to each opioid administration. Or morphine injection 6 mgJump to med 6 mg, intravenous, Every 2 hour PRN, Severe pain or 7-10 (on the numeric pain scale), Starting on Sat11/09/24 at 1203, Until Camila 11/12/24 at 1820, Assess pain, sedation, and respiratory rate prior to each opioid administration. documented in this encounter Care Teams [employer] Relationship Specialty Start Date End Date Chen Pop 1960 [place], [place] [id number] PCP - General Internal Medicine 05/01/24 documented as of this encounter
--- OUTSIDE RECORDS SUMMARY | 2024-11-23 16:26 | XMS_ITS | Encounter Summary ---
Author Organization [facility] Address [address] [place] [address] Care Team Providers Care Toe Lining Closer Name Role Phone Chen Pop Primary Care Provider [phone] Reason for Visit * Auth/Cert (Routine) Specialty Diagnoses / Procedures Referred By Contritchie t Referred To Contact Diagnoses Primary osteoarthritis of left knee Primary osteoarthritis of left knee [M17.12] Procedures PA TOTAL KNEE ARTHROPLASTY ARTHROPLASTY, KNEE, CONDYLE AND PLATEAU; MEDIAL AND LATERAL COMPARTMENTS WITH OR WITHOUT PATELLA RESURFACING (TOTAL KNEE ARTHROPLASTY) Saqib Santos J.P., MD [address] [place] [address] Phone: tel: fax: Referral ID Status Reason Start Date Expiration Date Visits Re quested Visits Authorized [id number] 10/22/2024 99 99 Encounter Details Date Type Department Care Team (Latest Contact Info) Description 11/09/2024 7:37 AM EST - 11/12/2024 4:10 PM [facility] Hospital Encounter [facility] [address] Surgery [address] [place] [address] Saqib Santos J.P., MD [address] [place] [phone] Primary localized osteoarthritis of right knee (Primary Dx); Primary osteoarthritis of left knee Discharge Disposition: Inpatient Rehab Facility (IRF) (62) Social History Tobacco Use Types Packs/Day Years [...] Mass Index 26.67 11/09/2024 3:00 PM EST documented in this encounter Discharge Summaries * Saqib Santos MD - 11/11/2024 8:04 AM EST Images from the original note were not included. DISCHARGE SUMMARY [facility] DISCHARGE INFORMATION: Date and Time of Admission: 11/09/2024 12:05 PM Date of Discharge: 11/12/2024 DISCHARGE DIAGNOSIS: Problem List Active Problems * (Principal) Primary osteoarthritis of left knee ATTENDING PHYSICIAN ON DISCHARGE: Attending Provider: Saqib Santos MD [phone] FOLLOW-UPS AND SCHEDULED APPOINTMENTS: Future Appointments Date Time Provider Department Center 12/03/2024 1:15 PM Saqib Santos MD [id number] None PENDING LABS: . None DISCHARGE MEDICATIONS: [...] CLASSIC times two JOINT REPLACEMENT Right hip PA TOTAL KNEE ARTHROPLASTY Right 07/20/2024 Procedure: ARTHROPLASTY, KNEE, CONDYLE AND PLATEAU; MEDIAL AND LATERAL COMPARTMENTS WITH OR WITHOUTPATELLA RESURFACING (TOTAL KNEE ARTHROPLASTY); Surgeon: Saqib Santos MD; Location: [facility]; Service: Orthopedics PA TOTAL KNEE ARTHROPLASTY Left 11/09/2024 Procedure: ARTHROPLASTY, KNEE, CONDYLE AND PLATEAU; MEDIAL AND LATERAL COMPARTMENTS WITH OR WITHOUTPATELLA RESURFACING (TOTAL KNEE ARTHROPLASTY); Surgeon: Saqib Santos MD; Location: [facility]; Service: Orthopedics SALPINGOOPHORECTOMY Bilateral VARICOSE VEIN [...] about DERMABOND PRINEO System please our office ([phone]) Saqib Santos MD [facility] [address], [address] [address] [place], [address] [address] [place] [address] (Office) At Home Instructions, Total [...] you enter the car. 2. Have the rolloff truck driver park on a flat surface [...] day from all sources 40 tablet 11/12/2024 5 documented as of this encounter Progress Notes [...] have occurred. Lillian Copeland : 1945 CSN: [id number] Source Note - Saqib Santos MD - [...] created with voice recognition software. Occasional wrong-wordor aajij-t-zamx substitutions may have occurred due to the inherent limitations of voice recognition software. Read the chart carefully and recognize, using context, where substitutions have occurred. documented in this encounter Miscellaneous Notes * Plan of Care - Jill Coera RN - 11/12/2024 3:58 PM EST Discharge patient per order Patient discharging to [facility]. VSS, A&Ox4, patient adequate for discharge. PIV removed. All patient belongings returned to patient. Patient medicated for pain for transport, see MAR. Patient transported by ambulance stretcher. * Plan of Care - Kenya Hendrickson - 11/12/2024 2:52 PM EST Case Management - Message received from [facility] reporting patient will need to bring her Ninlaro medication with her. Patient reports she is due to take this medication on 11/20 and her son will bring it in to facility if she is still there when it is due. [facility] updated via WITOI. * Plan of Care - Jill Corea RN - 11/12/2024 2:43 PM EST RN report called to accepting nurse at [facility] [phone] * Plan of Care - Kenya Hendrickson - 11/12/2024 2:34 PM EST Discharge Note: Pertinent Clinical and Medical Clearance: Patient cleared medically by to discharge to [facility]. Met with patient and spoke with her son Ethan on the phone. They are in agreement with plan. Final Discharge Plan: Discharge to [address] Handoff # [phone] provided to nursing via secure chat. 3. Transportation: [employer] arranged for stretcher transportation for next available. * Plan of Care - Aime De EXTRUDING PRESS OPERATOR - 11/12/2024 12:18 PM EST Problem: Adult [...] reflux disease) Hiatal hernia Hypertension Multiple myeloma ([facility]) Past Surgical History: Procedure Laterality Date ANKLE FRACTURE SURGERY Left BREAST LUMPECTOMY Right times two CATARACT EXTRACTION W/ INTRAOCULAR LENS IMPLANT Bilateral SECTION, CLASSIC times two JOINT REPLACEMENT Right hip PA TOTAL KNEE ARTHROPLASTY Right 07/20/2024 Procedure: ARTHROPLASTY, KNEE, CONDYLE AND PLATEAU; MEDIAL AND LATERAL COMPARTMENTS WITH OR WITHOUTPATELLA RESURFACING (TOTAL KNEE ARTHROPLASTY); Surgeon: Saqib Santos MD; Location: [facility]; Service: Orthopedics PA TOTAL KNEE ARTHROPLASTY Left 11/09/2024 Procedure: ARTHROPLASTY, KNEE, CONDYLE AND PLATEAU; MEDIAL AND LATERAL COMPARTMENTS WITH OR WITHOUTPATELLA RESURFACING (TOTAL KNEE ARTHROPLASTY); Surgeon: Saqib Santos MD; Location: [facility]; Service: Orthopedics SALPINGOOPHORECTOMY Bilateral VARICOSE VEIN SURGERY Bilateral Treatment: Default Flowsheet Data (Last 12 Hours) Adult PT Evaluation/Treatment Row Name 11/12/24 1208 General Information Patient Profile Review yes General Observations of Patient supine in bed resting Row Name 11/12/24 1208 Bed Mobility Assessment/Treatment Assistive Device (Bed Mobility) hospital bed;bedrail Eufxdb-xl-Fac Rush (Bed Mobility) minimum assist (75% patient effort);verbal cues required;set up required;HOB elevated Safety Issues (Bed Mobility) decreased use of legs for bridging/pushing Impairments (Bed Mobility) pain;ROM (range of motion) decreased;strength decreased Row Name 11/12/24 1208 Transfer Assessment/Treatment Sit-Stand Rush level (Transfers) contact guard assist;verbal cues required;set up required Stand-Sit Rush level(Transfers) minimum assist (75% patient effort);verbal cues required;set up required Uny-Njnkl-Eoq Assistive Device (Transfers) gait belt;walker, rolling Toilet Rush Level (Transfers) minimum assist (75% patient effort);verbal [...] chair Row Name 11/12/24 1208 Gait Assessment/Treatment Rush (Gait) contact guard assist;verbal cues required Assistive [...] (Therapeutic Exercise) supine Sets/Reps (Therapeutic Exercise) 10 [facility] Name 11/12/24 1208 Rehab Eval/Treat-Additional Details Document Type Therapy treatment note PT Treatment Received On 11/12/24 PT Goal Summary (all recorded) PT Rehab Goal Summary [facility] 11/09/24 1700 Physical Therapy Goals Bed Mobility Goal Selection (PT) bed mobility, PT goal 1 Transfer Goal Selection (PT) transfer, PT goal 1 Gait Training Goal Selection (PT) gait training, PT goal 1 Stairs Goal Selection (PT) stairs, PT goal 1 [facility] 11/09/24 17011/10/24 1200 11/10/24 1300 11/12/24 1200 Bed Mobility Goal 1 (PT) Activity (Bed Mobility Goal 1, PT) rolling to left;rolling to right;scooting;sit to supine/supine to sit -- -- -- Rush Level/Cues Needed (Bed Mobility Goal 1, PT) independent -- -- -- Assitive Devices (Bed Mobility Goal 1, PT) none -- -- -- Time Frame (Bed Mobility Goal 1, PT) 2 days -- -- -- Outcomes (Bed Mobility Goal 1, PT) -- goal ongoing goal ongoing goal ongoing [facility] 11/09/24 17011/10/24 1200 11/10/24 1300 11/12/24 1200 Transfer Goal 1 (PT) Activity (Transfer Goal 1, PT) xqr-du-qesuh/tgagc-qj-xrk;crd-fc-pqykf/elvgy-rd-hxp -- -- -- Rush Level/Cues Needed (Transfer Goal 1, PT) contact guard assist -- -- -- Assitive Devices (Transfer Goal 1, PT) walker, rolling -- -- -- Time Frame (Transfer Goal 1, PT) 2 days -- -- -- Outcome (Transfer Goal 1, PT) -- goal ongoing goal ongoing goal ongoing [facility] 11/09/24 1700 11/10/24 1200 11/10/24 1300 11/12/24 1200 Gait Training Goal 1 (PT) Activity (Gait Training Goal 1, PT) gait (walking locomotion);diminish gait deviation;forward stepping;improve balance and speed;increase endurance/gait distance;normalize weight shifts -- -- -- Rush Level (Gait Training Goal 1, PT) contact guard assist -- -- -- Assistive Devices (Gait Training Goal 1, PT) walker, rolling;gait belt -- -- -- Distance (Gait Goal 1, PT) 100 ft -- -- -- Time Frame (Gait Training Goal 1, PT) 3 days -- -- -- Outcome (Gait Training Goal 1, PT) -- goal ongoing goal ongoing goal ongoing Row Name 11/09/24 170 Stairs Goal 1 (PT) Activity (Stairs Goal 1, PT) ascending stairs;descending stairs;using handrail, left;uexw-mm-yqlv Rush Level/Cues Needed (Stairs Goal 1, PT) supervision required Assistive Devices (Stairs Goal 1, PT) handrail;cane, straight Number of Stairs (Stairs Goal 1, PT) 4 Time Frame (Stairs Goal 1, PT) 3 days Row Name 11/09/24 170 Half-Way Goal (PT) Statement (Electric Meter Inspector Goal, PT) Return to PLOF Rush Level (Half-Way Goal, PT) modified independence Time Frame (Half-Way Goal, PT) 2 weeks Aime De PTA Licensure: [place], [place]: 3804 * Plan of Care - [...] CLASSIC times two JOINT REPLACEMENT Right hip PA TOTAL KNEE ARTHROPLASTY Right 07/20/2024 Procedure: ARTHROPLASTY, KNEE, CONDYLE AND PLATEAU; MEDIAL AND LATERAL COMPARTMENTS WITH OR WITHOUTPATELLA RESURFACING (TOTAL KNEE ARTHROPLASTY); Surgeon: Saqib Santos MD; Location: [facility]; Service: Orthopedics PA TOTAL KNEE ARTHROPLASTY Left 11/09/2024 Procedure: ARTHROPLASTY, KNEE, CONDYLE AND PLATEAU; MEDIAL AND LATERAL COMPARTMENTS WITH OR WITHOUTPATELLA RESURFACING (TOTAL KNEE ARTHROPLASTY); Surgeon: Saqib Santos MD; Location: [facility]; Service: Orthopedics SALPINGOOPHORECTOMY Bilateral VARICOSE VEIN SURGERY Bilateral Vitals Treatment: OT EVAL/TREAT (Last 12 Hours) Adult OT Eval/Treat Row Name 11/12/24 0820 Bed Mobility Assessment/Treatment Snz-in-Cqfyiy Rush (Bed Mobility) moderate assist (50% patient effort) Row Name 11/12/24 0820 Static Standing Balance Static Standing Position unsupported Static Standing Assistance Contact guard Static Standing Time (seconds) 15 seconds Row Name 11/12/24 0820 Transfer Assessment/Treatment Sit-Stand Rush level (Transfers) minimum assist (75% patient effort) extra time, pt talks self through sequence Toilet Rush Level (Transfers) contact guard assist extra time Toilet Assistive Device (Transfers) commode, over toilet;walker, rolling Toilet Transfer Type stand step OT Goal Summary (all recorded) OT Goal Summary Row Name 11/10/24 1400 Occupational Therapy Goals Transfer Goal Selection (OT) transfer, OT goal 1 Dressing Goal Selection (OT) dressing, OT goal 1 Toileting Goal Selection (OT) toileting, OT goal 1 Row Name 11/10/24139911/11/24 1000 Transfer Goal 1 (OT) Activity (Transfer Goal 1, OT) toilet transfer -- Rush Level (Transfer Goal 1, OT) supervision required -- Assitive Devices (Transfer Goal 1, OT) walker, rolling -- Time Frame (Transfer Goal 1, OT) 4 days -- Outcome (Transfer Goal 1, OT) -- goal ongoing Row Name 11/10/24 1400 11/11/24 1000 Dressing Goal 1 (OT) Activity (Dressing Goal 1, OT) lower body dressing -- Rush Level (Dressing Goal 1, OT) supervision required -- Assistive Devices (Dressing Goal 1, OT) component assembler supervisor;sock-aid -- Time Frame (Dressing Goal 1, OT) 4 days -- Outcomes (Dressing Goal 1, OT) -- goal ongoing Row Name 11/10/24139911/11/24 1000 Toileting Goal 1 (OT) Activity (Toileting Goal 1, OT) perform perineal hygiene;adjust/manage clothing -- Rush Level (Toileting Goal 1, OT) supervision required -- Assistive Devices (Toileting Goal 1, OT) raised toilet seat;grab bar;walker, rolling -- Outcome (Toileting Goal 1, OT) -- goal ongoing Row Name 11/10/24 1400 Half-Way Goal (OT) Statement (Half-Way Goal, OT) return to home Dayan Ibarra OT Licensure: [place]: [id number] * Plan of Care - Kevin Dominguez [...] shortness of breath, no chest pain, occ stitch wheeler dry cough. IS at bedside- pt able [...] have been offered. Her preferred facility - [facility] in [place] has clinically accepted her, butdid not have [...] a one story [place] style home in [facility] [place] [facility], where she has 4 steps at the entrance. She has two sons who live in [place] and [place]. Son Ethan has requested to have search for rehab bed expanded further anywhere in the state. He is questioning why [facility] in [place] was able to clinically accept pt while other acute facilities were not. Again, CM explained the above stated. He states that pt went there before when she had the exact same surgical procedure on the other side, and is adamant that if pt was accepted then, she should be accepted at rehab now. - Again, [facility], where pt was then, accepted but does not forsee an available acute rehab bed any time soon. CM expanded search through out the state to other [facility] facilities, as requested by pt and son. [...] - 11/11/2024 4:17 PM EST Care assumed [id number]. Pt AOX 4. 1 A OOB to [...] (interventions implemented as appropriate) Flowsheets (Taken 11/11/2024 1518) Plan of Care Reviewed With: patient Plan [...] CLASSIC times two JOINT REPLACEMENT Right hip PA TOTAL KNEE ARTHROPLASTY Right 07/20/2024 Procedure: ARTHROPLASTY, KNEE, CONDYLE AND PLATEAU; MEDIAL AND LATERAL COMPARTMENTS WITH OR WITHOUTPATELLA RESURFACING (TOTAL KNEE ARTHROPLASTY); Surgeon: Saqib Santos MD; Location: [facility]; Service: Orthopedics PA TOTAL KNEE ARTHROPLASTY Left 11/09/2024 Procedure: ARTHROPLASTY, KNEE, CONDYLE AND PLATEAU; MEDIAL AND LATERAL COMPARTMENTS WITH OR WITHOUTPATELLA RESURFACING (TOTAL KNEE ARTHROPLASTY); Surgeon: Saqib Santos MD; Location: [facility]; Service: Orthopedics SALPINGOOPHORECTOMY Bilateral VARICOSE VEIN SURGERY Bilateral Treatment: Default Flowsheet Data (Last 12 Hours) Adult PT Evaluation/Treatment Row Name 11/11/24 4942 General Information Patient Profile Review yes General [...] Row Name 11/11/24 1015 Bed Mobility Assessment/Treatment Itl-lu-Wsutti Rush (Bed Mobility) minimum assist (75% patient effort);verbal cues required;nonverbal cues required (demo/gesture) Impairments (Bed Mobility) strength decreased;ROM (range of motion) decreased;pain Row Name 11/11/24 1435 Transfer Assessment/Treatment Comment (Transfers) pt declined OOB [facility] Name 11/11/24 1015 Transfer Assessment/Treatment Sit-Stand Rush level (Transfers) minimum assist (75% patient effort);verbal cues required Stand-Sit Rush level(Transfers) minimum assist (75% patient effort);verbal cues required Wjo-Nnncz-Gjq Assistive Device (Transfers) walker, rolling;gait belt Maintain Weight Bearing Status (Transfers) able to maintain weight bearing status Safety Issues (Transfers) step length decreased;weight-shifting ability decreased;balance decreasedduring turns Impairments (Transfers) strength decreased;ROM (range of motion) decreased;pain Row Name 11/11/24 1015 Gait Assessment/Treatment Rush (Gait) contact guard assist;verbal cues required Assistive [...] right;scooting;sit to supine/supine to sit -- -- Rush Level/Cues Needed (Bed Mobility Goal 1, PT) independent -- -- Assitive Devices (Bed Mobility Goal 1, PT) none -- -- Time Frame (Bed Mobility Goal 1, PT) 2 days -- -- Outcomes (Bed Mobility Goal 1, PT) -- goal ongoing goal ongoing Row Name 11/09/24 1700 11/10/24 1200 11/10/24 1300 Transfer Goal 1 (PT) Activity (Transfer Goal 1, PT) knr-ul-chudb/knztz-in-uht;bmx-pi-euejz/fujot-gk-yhe -- -- Rush Level/Cues Needed (Transfer Goal 1, PT) contact [...] speed;increase endurance/gait distance;normalize weight shifts -- -- Rush Level (Gait Training Goal 1, PT) contact [...] Goal 1, PT) ascending stairs;descending stairs;using handrail, left;tiam-sh-ewdz Rush Level/Cues Needed (Stairs Goal 1, PT) supervision required Assistive Devices (Stairs Goal 1, PT) handrail;cane, straight Number of Stairs (Stairs Goal 1, PT) 4 Time Frame (Stairs Goal 1, PT) 3 days Row Name 11/09/24 1700 Half-Way Goal (PT) Statement (Half-Way Goal, PT) Return to PLOF Rush Level (Electric Meter Inspector Goal, PT) modified independence Time Frame (Electric Meter Inspector Goal, PT) 2 weeks Aime De PTA Licensure: EXTRUDING PRESS OPERATOR, [place]: 3804 * Plan of Care - Chelsea [...] CLASSIC times two JOINT REPLACEMENT Right hip PA TOTAL KNEE ARTHROPLASTY Right 07/20/2024 Procedure: ARTHROPLASTY, KNEE, CONDYLE AND PLATEAU; MEDIAL AND LATERAL COMPARTMENTS WITH OR WITHOUTPATELLA RESURFACING (TOTAL KNEE ARTHROPLASTY); Surgeon: Saqib Santos MD; Location: [facility]; Service: Orthopedics PA TOTAL KNEE ARTHROPLASTY Left 11/09/2024 Procedure: ARTHROPLASTY, KNEE, CONDYLE AND PLATEAU; MEDIAL AND LATERAL COMPARTMENTS WITH OR WITHOUTPATELLA RESURFACING (TOTAL KNEE ARTHROPLASTY); Surgeon: Saqib Santos MD; Location: [facility]; Service: Orthopedics SALPINGOOPHORECTOMY Bilateral VARICOSE [...] Row Name 11/11/24 1015 Bed Mobility Assessment/Treatment Lwr-iw-Khoekq Rush (Bed Mobility) minimum assist (75% patient effort);verbal cues required;nonverbal cues required (demo/gesture) Impairments (Bed Mobility) strength decreased;ROM (range of motion) decreased;pain Row Name 11/11/24 1015 Transfer Assessment/Treatment Sit-Stand Rush level (Transfers) minimum assist (75% patient effort);verbal cues required Stand-Sit Rush level(Transfers) minimum assist (75% patient effort);verbal cues required Agf-Xplyr-Ldn Assistive Device (Transfers) walker, rolling;gait belt Maintain Weight Bearing Status (Transfers) able to maintain weight bearing status Safety Issues (Transfers) step length decreased;weight-shifting ability decreased;balance decreasedduring turns Impairments (Transfers) strength decreased;ROM (range of motion) decreased;pain Row Name 11/11/24 1015 Gait Assessment/Treatment Rush (Gait) contact guard assist;verbal cues required Assistive [...] right;scooting;sit to supine/supine to sit -- -- Rush Level/Cues Needed (Bed Mobility Goal 1, PT) independent -- -- Assitive Devices (Bed Mobility Goal 1, PT) none -- -- Time Frame (Bed Mobility Goal 1, PT) 2 days -- -- Outcomes (Bed Mobility Goal 1, PT) -- goal ongoing goal ongoing Row Name 11/09/24 17011/10/24 1200 11/10/24 1300 Transfer Goal 1 (PT) Activity (Transfer Goal 1, PT) vet-wq-zemrl/svfpf-fy-wxe;uji-zg-nqgwe/vozib-ay-okm -- -- Rush Level/Cues Needed (Transfer Goal 1, PT) contact [...] speed;increase endurance/gait distance;normalize weight shifts -- -- Rush Level (Gait Training Goal 1, PT) contact [...] Goal 1, PT) ascending stairs;descending stairs;using handrail, left;spah-sh-jcrp Rush Level/Cues Needed (Stairs Goal 1, PT) supervision required Assistive Devices (Stairs Goal 1, PT) handrail;cane, straight Number of Stairs (Stairs Goal 1, PT) 4 Time Frame (Stairs Goal 1, PT) 3 days Row Name 11/09/24 1700 Electric Meter Inspector Goal (PT) Statement (Electric Meter Inspector Goal, PT) Return to PLOF Rush Level (Half-Way Goal, PT) modified independence Time Frame (Electric Meter Inspector Goal, PT) 2 weeks Chelsea Fagan PTA Licensure: EXTRUDING PRESS OPERATOR, [place]: 3564 * Plan of Care - Dayan [...] Max A LBB/D. Education/training in use of component assembler supervisor for donning clean undergarment over feet. Pt [...] Pain reported in LLE prior to tx 510. Following tx7/10 all over . Pt left in chair. Call calvilol within reach. Patient's response to therapy: Pt [...] CLASSIC times two JOINT REPLACEMENT Right hip PA TOTAL KNEE ARTHROPLASTY Right 07/20/2024 Procedure: ARTHROPLASTY, KNEE, CONDYLE AND PLATEAU; MEDIAL AND LATERAL COMPARTMENTS WITH OR WITHOUTPATELLA RESURFACING (TOTAL KNEE ARTHROPLASTY); Surgeon: Saqib Santos MD; Location: [facility]; Service: Orthopedics PA TOTAL KNEE ARTHROPLASTY Left 11/09/2024 Procedure: ARTHROPLASTY, KNEE, CONDYLE AND PLATEAU; MEDIAL AND LATERAL COMPARTMENTS WITH OR WITHOUTPATELLA RESURFACING (TOTAL KNEE ARTHROPLASTY); Surgeon: Saqib Santos MD; Location: [facility]; Service: Orthopedics SALPINGOOPHORECTOMY Bilateral VARICOSE VEIN [...] pain all over body Row Name 11/11/24 09 Bed Mobility Assessment/Treatment Sfwfdx-kq-Cnp Rush (Bed Mobility) minimum assist (75% patient effort);HOB elevated Row Name 11/11/24914 Transfer Assessment/Treatment Sit-Stand Rush level (Transfers) minimum assist (75% patient effort);other (see comments) height of bed raised approx. 20 inches from floor Bed-Chair Rush level (Transfers) contact guard assist Row Name 11/11/24914 Grooming Assessment/Training Position (Grooming) sitting Rush Level (Grooming) set up required [facility] Name 11/11/24914 Bathing Assessment/Training Position (Bathing) sitting Rush Level (Bathing) moderate assist (50% patient effort) Impairments (Bathing) ROM (range of motion) decreased;pain Row Name 11/11/24914 Upper Body Dressing Assessment/Training Position (UB Dressing) sitting Rush Level (UB Dressing) set up required [facility] Name 11/11/24914 Lower Body Dressing Assessment/Training Assistive Devices (LB Dressing) component assembler supervisor Position (LB Dressing) standing;sitting Rush Level (LB Dressing) maximum assist (25% patient effort) Impairments (LB Dressing) pain;ROM (range of motion) decreased [facility] Name 11/11/24914 Rehab Eval/Treat-Additional Details Document Type Therapy treatment note OT Treatment Received On 11/11/24 Patient Effort good Symptoms Noted During/After Treatment increased pain;other (see comments) nausea OT Goal Summary (all recorded) OT Goal Summary [facility] Name 11/10/24 1400 Occupational Therapy Goals Transfer Goal Selection (OT) transfer, OT goal 1 Dressing Goal Selection (OT) dressing, OT goal 1 Toileting Goal Selection (OT) toileting, OT goal 1 Row Name 11/10/24 1400 11/11/24 1000 Transfer Goal 1 (OT) Activity (Transfer Goal 1, OT) toilet transfer -- Rush Level (Transfer Goal 1, OT) supervision required -- Assitive Devices (Transfer Goal 1, OT) walker, rolling -- Time Frame (Transfer Goal 1, OT) 4 days -- Outcome (Transfer Goal 1, OT) -- goal ongoing Row Name 11/10/24 1400 11/11/24 1000 Dressing Goal 1 (OT) Activity (Dressing Goal 1, OT) lower body dressing -- Rush Level (Dressing Goal 1, OT) supervision required -- Assistive Devices (Dressing Goal 1, OT) component assembler supervisor;sock-aid -- Time Frame (Dressing Goal 1, OT) 4 days -- Outcomes (Dressing Goal 1, OT) -- goal ongoing Row Name 11/10/24 1400 11/11/24 1000 Toileting Goal 1 (OT) Activity (Toileting Goal 1, OT) perform perineal hygiene;adjust/manage clothing -- Rush Level (Toileting Goal 1, OT) supervision required -- Assistive Devices (Toileting Goal 1, OT) raised toilet seat;grab bar;walker, rolling -- Outcome (Toileting Goal 1, OT) -- goal ongoing Row Name 11/10/24 1400 Electric Meter Inspector Goal (OT) Statement (Half-Way Goal, OT) return to home Dayan Ibarra OT Licensure: [place], [place]: [id number] * Plan of Care - Jordyn Fitzgerald RN - 11/11/2024 8:59 AM EST Assumed care of patient from 3251-4043, AxOx4, RA, 1A w/RW for mobility and ADLs. Able tolerate sitting up @ the edge of bed. Elective Total L knee, post op (2). Able to tolerate meds whole. LLE FARHAN,CDI. RLE band aid CDI. +CSM. C/O of [...] RN - 11/11/2024 12:58 AM EST POD#1-2 [id number] Assumed care of patient @ 1900. Patient [...] Fatuma Suarez - 11/10/2024 2:31 PM EST Cm spoke with [facility] [phone] and they do not have a bed [...] Plan of Care Review Flowsheets (Taken 11/10/2024 6743) Plan of Care Reviewed With: patient Comments:78 [...] Plan of Care Review Flowsheets (Taken 11/10/2024 1162) Plan of Care Reviewed With: patient Patient [...] CLASSIC times two JOINT REPLACEMENT Right hip PA TOTAL KNEE ARTHROPLASTY Right 07/20/2024 Procedure: ARTHROPLASTY, KNEE, CONDYLE AND PLATEAU; MEDIAL AND LATERAL COMPARTMENTS WITH OR WITHOUTPATELLA RESURFACING (TOTAL KNEE ARTHROPLASTY); Surgeon: Saqib Santos MD; Location: [facility] OR; Service: Orthopedics PA TOTAL KNEE ARTHROPLASTY Left 11/09/2024 Procedure: ARTHROPLASTY, KNEE, CONDYLE AND PLATEAU; MEDIAL AND LATERAL COMPARTMENTS WITH OR WITHOUTPATELLA RESURFACING (TOTAL KNEE ARTHROPLASTY); Surgeon: Saqib Santos MD; Location: [facility] OR; Service: Orthopedics SALPINGOOPHORECTOMY Bilateral VARICOSE VEIN SURGERY Bilateral Vitals Assessment: OT EVAL/TREAT (Last 12 Hours) Adult OT Eval/Treat Row Name 11/10/24 0856 General Information Patient Profile Review yes Onset [...] home ADL Aids (row);Ambulation (row) 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;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 Ambulation cane - straight;walker - rolling Row Name 11/10/24 0845 Functional Level Prior Bed Mobility independent Transferring independent Ambulation independent Stairs independent Toileting independent Bathing independent Bathing Assistive Device grab bar in tub/shower;other (see comments) walk-in shower Dressing independent Eating independent Row Name 11/10/24 0845 Daily Routine Important Activities other (see comments) Pt enjoys gardening and taking care of her small dog Row Name 11/10/24 0845 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 Meal Plan/Prep primary Shopping primary Money Management primary Medical/Medication Management primary Transportation primary drives Row Name 11/10/24 0845 IADLs Current Meal Plan/Prep impaired Block Out Machine Operator impaired Transportation impaired Row Name 11/10/24 0845 [...] Row Name 11/10/24 0845 Transfer Assessment/Treatment Sit-Stand Rush level (Transfers) minimum assist (75% patient effort) Stand-Sit Rush level(Transfers) minimum assist (75% patient effort) Szs-Acbte-Ent Assistive Device (Transfers) walker, rolling Chair-Bed Rush level (Transfers) minimum assist (75% patient effort) Wts-Cezjo-Jrg Assistive Device (Transfers) walker, rolling Toilet Rush Level (Transfers) minimum assist (75% patient effort) Row Name 11/10/24 0845 Mobility Assessment/Training Additional Documentation -- ADL mobility with RW indoor/room surface 9 ft with 1 turn, min A and verbal cues. Pt noted to limit L knee flexion, hiking hip when stepping forward Row Name 11/10/24 0845 Upper Body Dressing Assessment/Training Rush Level (UB Dressing) set up required Row Name 11/10/24 0845 Lower Body Dressing Assessment/Training Rush Level (LB Dressing) maximum assist (25% patient effort) Row Name 11/10/24 0845 Toileting Assessment/Training Rush Level (Toileting) moderate assist (50% patient effort) [...] Activity (Transfer Goal 1, OT) toilet transfer Rush Level (Transfer Goal 1, OT) supervision required Assitive Devices (Transfer Goal 1, OT) walker, rolling Time Frame (Transfer Goal 1, OT) 4 days Row Name 11/10/24 1400 Dressing Goal 1 (OT) Activity (Dressing Goal 1, OT) lower body dressing Rush Level (Dressing Goal 1, OT) supervision required Assistive Devices (Dressing Goal 1, OT) component assembler supervisor;sock-aid Time Frame (Dressing Goal 1, OT) 4 days Row Name 11/10/24 1400 Toileting Goal 1 (OT) Activity (Toileting Goal 1, OT) perform perineal hygiene;adjust/manage clothing Rush Level (Toileting Goal 1, OT) supervision required Assistive Devices (Toileting Goal 1, OT) raised toilet seat;grab bar;walker, rolling Row Name 11/10/24 1400 Electric Meter Inspector Goal (OT) Statement (Half-Way Goal, OT) return to home Dayan Ibarra OT Licensure: [place], [place]: [id number] * Plan of Care - Babita Lawrence PTA - 11/10/2024 1:56 PM EST Problem: Adult Inpatient Plan of Care Goal: Plan of Care Review 11/10/2024 1356 by Babita Lawrence PTA Outcome: Ongoing (interventions implemented as appropriate) Flowsheets Taken 11/10/2024 1356 by Babita Lawrence PTA Progress: improving Taken 11/10/2024 1330 by Babita Lawrence PTA Plan of Care Reviewed With: patient son Taken 11/09/2024 1759 by Maliha Banuelos PT [...] for correction of same Anxiety Cancer (CMS/HCC) ([facility]) right breast Depression GERD (gastroesophageal reflux disease) Hiatal hernia Hypertension Multiple myeloma ([facility]) Past Surgical History: Procedure Laterality Date ANKLE FRACTURE SURGERY Left BREAST LUMPECTOMY Right times two CATARACT EXTRACTION W/ INTRAOCULAR LENS IMPLANT Bilateral SECTION, CLASSIC times two JOINT REPLACEMENT Right hip PA TOTAL KNEE ARTHROPLASTY Right 07/20/2024 Procedure: ARTHROPLASTY, KNEE, CONDYLE AND PLATEAU; MEDIAL AND LATERAL COMPARTMENTS WITH OR WITHOUTPATELLA RESURFACING (TOTAL KNEE ARTHROPLASTY); Surgeon: Saqib Santos MD; Location: [facility]; Service: Orthopedics PA TOTAL KNEE ARTHROPLASTY Left 11/09/2024 Procedure: ARTHROPLASTY, KNEE, CONDYLE AND PLATEAU; MEDIAL AND LATERAL COMPARTMENTS WITH OR WITHOUTPATELLA RESURFACING (TOTAL KNEE ARTHROPLASTY); Surgeon: Saqib Santos MD; Location: [facility] OR; Service: Orthopedics SALPINGOOPHORECTOMY Bilateral VARICOSE VEIN SURGERY Bilateral Treatment: Default Flowsheet Data (Last 12 Hours) Adult PT Focused Evaluation/Treatment Row Name 11/10/24 133 General Information Patient Profile Review yes General Observations of Patient In bed w/ son at bed side Row Name 11/10/24 0905 General Information Patient Profile Review yes General Observations of Patient Sitting in bed side chair Row Name 11/10/241329 Pain Scale: Numbers Treatment Pain: Pre Treatment [...] Assistive Devices gait belt;walker, rolling Row Name 11/10/241329 Bed Mobility Assessment/Treatment Assistive Device (Bed Mobility) bedrail;draw sheet Scoot/Bridge Rush (Bed Mobility) minimum assist (75% patient effort) Kmrees-pc-Ark Rush (Bed Mobility) minimum assist (75% patient effort) Row Name 11/10/241329 Transfer Assessment/Treatment Sit-Stand Rush level (Transfers) minimum assist (75% patient effort) Stand-Sit Rush level(Transfers) minimum assist (75% patient effort);verbal cues required Mut-Vkouh-Hto Assistive Device (Transfers) gait belt;walker, rolling Bed-Chair Rush level (Transfers) minimum assist (75% patient effort);verbal cues required Toilet Rush Level (Transfers) minimum assist (75% patient effort);verbal cues required Toilet Transfer Type stand step Row Name 11/10/24 09 Transfer Assessment/Treatment Sit-Stand Rush level (Transfers) minimum assist (75% patient effort);verbal cues required Stand-Sit Rush level(Transfers) minimum assist (75% patient effort) Mpf-Jtdww-Xma Assistive Device (Transfers) walker, rolling;gait belt Row Name 11/10/24 139 Gait Assessment/Treatment Rush (Gait) contact guard assist;verbal cues required;set up required Assistive Device (Gait) walker, rolling;gait belt Distance in Feet (Gait) 2x 15 feet Gait Pattern Analysis 3-point gait Gait Deviations jf, decreased;flexed knee, left;foot flat, left;stance time, decreased, left Row Name 11/10/24 0905 Gait Assessment/Treatment Rush (Gait) contact guard assist;verbal cues required Assistive [...] right;scooting;sit to supine/supine to sit -- -- Rush Level/Cues Needed (Bed Mobility Goal 1, PT) independent -- -- Assitive Devices (Bed Mobility Goal 1, PT) none -- -- Time Frame (Bed Mobility Goal 1, PT) 2 days -- -- Outcomes (Bed Mobility Goal 1, PT) -- goal ongoing goal ongoing Row Name 11/09/24 17011/10/24 1200 11/10/24 1300 Transfer Goal 1 (PT) Activity (Transfer Goal 1, PT) xwr-oe-sjyue/omvbc-ii-feq;ybd-ls-zeqma/khcac-td-cnd -- -- Rush Level/Cues Needed (Transfer Goal 1, PT) contact [...] speed;increase endurance/gait distance;normalize weight shifts -- -- Rush Level (Gait Training Goal 1, PT) contact [...] Goal 1, PT) ascending stairs;descending stairs;using handrail, left;lhyj-aq-zvgc Rush Level/Cues Needed (Stairs Goal 1, PT) supervision required Assistive Devices (Stairs Goal 1, PT) handrail;cane, straight Number of Stairs (Stairs Goal 1, PT) 4 Time Frame (Stairs Goal 1, PT) 3 days Row Name 11/09/24 1700 Half-Way Goal (PT) Statement (Electric Meter Inspector Goal, PT) Return to PLOF Rush Level (Electric Meter Inspector Goal, PT) modified independence Time Frame (Electric Meter Inspector Goal, PT) 2 weeks Babita Lawrence PTA [...] CLASSIC times two JOINT REPLACEMENT Right hip PA TOTAL KNEE ARTHROPLASTY Right 07/20/2024 Procedure: ARTHROPLASTY, KNEE, CONDYLE AND PLATEAU; MEDIAL AND LATERAL COMPARTMENTS WITH OR WITHOUTPATELLA RESURFACING (TOTAL KNEE ARTHROPLASTY); Surgeon: Saqib Santos MD; Location: [facility] OR; Service: Orthopedics PA TOTAL KNEE ARTHROPLASTY Left 11/09/2024 Procedure: ARTHROPLASTY, KNEE, CONDYLE AND PLATEAU; MEDIAL AND LATERAL COMPARTMENTS WITH OR WITHOUTPATELLA RESURFACING (TOTAL KNEE ARTHROPLASTY); Surgeon: Saqib Santos MD; Location: [facility] OR; Service: Orthopedics SALPINGOOPHORECTOMY Bilateral VARICOSE VEIN SURGERY Bilateral Treatment: Default Flowsheet Data (Last 12 Hours) Adult PT Focused Evaluation/Treatment Row Name 11/10/24 09 General Information Patient Profile Review yes General [...] Devices gait belt;walker, rolling Row Name 11/10/24 09 Transfer Assessment/Treatment Sit-Stand Rush level (Transfers) minimum assist (75% patient effort);verbal cues required Stand-Sit Rush level(Transfers) minimum assist (75% patient effort) Vqs-Iuktk-Dvq Assistive Device (Transfers) walker, rolling;gait belt Row Name 11/10/24 09 Gait Assessment/Treatment Rush (Gait) contact guard assist;verbal cues required Assistive Device (Gait) walker, rolling;gait belt Distance in Feet (Gait) 2x 20 feet Gait Deviations jf, decreased;step length, decreased;stance time, decreased, left Row Name 11/10/24 0905 Therapeutic Exercise Lower Extremity Therapeutic Exercise and ROM ankle dorsiflexion-plantar flexion, bilateral;ankle pumps, left;ankle pumps, right;heel slides, bilateral;quad sets, left Exercise Type (Therapeutic Exercise) AROM (active range of motion);AAROM (active assistive range ofmotion) Position (Therapeutic Exercise) seated Sets/Reps (Therapeutic Exercise) 10 Row Name 11/10/24 0905 Clinical Impression PT Anticipated Discharge Disposition inpatient facility Row Name 11/10/24 09 Plan of Care Review Plan of Care Reviewed With parent [facility] Name 11/10/24 09 PT Eval/ Treat- Additional Details Document Type Therapy treatment note PT Treatment Received On 11/10/24 Patient Effort good Symptoms Noted During/After Treatment increased pain PT Goal Summary (all recorded) PT Rehab Goal Summary [facility] 11/09/24 1700 Physical Therapy Goals Bed Mobility Goal Selection (PT) bed mobility, PT goal 1 Transfer Goal Selection (PT) transfer, PT goal 1 Gait Training Goal Selection (PT) gait training, PT goal 1 Stairs Goal Selection (PT) stairs, PT goal 1 [facility] Name 11/09/24 17011/10/24 1200 Bed Mobility Goal 1 (PT) Activity (Bed Mobility Goal 1, PT) rolling to left;rolling to right;scooting;sit to supine/supine to sit -- Rush Level/Cues Needed (Bed Mobility Goal 1, PT) independent -- Assitive Devices (Bed Mobility Goal 1, PT) none -- Time Frame (Bed Mobility Goal 1, PT) 2 days -- Outcomes (Bed Mobility Goal 1, PT) -- goal ongoing [facility] Name 11/09/24 17011/10/24 1200 Transfer Goal 1 (PT) Activity (Transfer Goal 1, PT) vud-po-utzha/addcg-ii-evs;vsl-ke-tqdnp/ikjrd-vt-ueq -- Rush Level/Cues Needed (Transfer Goal 1, PT) contact guard assist -- Assitive Devices (Transfer Goal 1, PT) walker, rolling -- Time Frame (Transfer Goal 1, PT) 2 days -- Outcome (Transfer Goal 1, PT) -- goal ongoing [facility] Name 11/09/24 17011/10/24 1200 Gait Training Goal 1 (PT) Activity (Gait Training Goal 1, PT) gait (walking locomotion);diminish gait deviation;forward stepping;improve balance and speed;increase endurance/gait distance;normalize weight shifts -- Rush Level (Gait Training Goal 1, PT) contact [...] Goal 1, PT) ascending stairs;descending stairs;using handrail, left;qgcx-xr-fkoz Rush Level/Cues Needed (Stairs Goal 1, PT) supervision required Assistive Devices (Stairs Goal 1, PT) handrail;cane, straight Number of Stairs (Stairs Goal 1, PT) 4 Time Frame (Stairs Goal 1, PT) 3 days Row Name 11/09/24 1700 Half-Way Goal (PT) Statement (Half-Way Goal, PT) Return to PLOF Rush Level (Electric Meter Inspector Goal, PT) modified independence Time Frame (Electric Meter Inspector Goal, PT) 2 weeks Babita Lawrence PTA [...] in. She has been to Rehab at [facility] in [place] and wasfollowed by Rubina Carey 3. Supports, [...] (interventions implemented as appropriate) Flowsheets (Taken 11/09/2024 1759) Plan of Care Reviewed With: patient Plan [...] documented in the EMR, in accordance with [facility] CPT code standards. Level of complexity of [...] CLASSIC times two JOINT REPLACEMENT Right hip PA TOTAL KNEE ARTHROPLASTY Right 07/20/2024 Procedure: ARTHROPLASTY, KNEE, CONDYLE AND PLATEAU; MEDIAL AND LATERAL COMPARTMENTS WITH OR WITHOUTPATELLA RESURFACING (TOTAL KNEE ARTHROPLASTY); Surgeon: Saqib Santos MD; Location: [facility]; Service: Orthopedics SALPINGOOPHORECTOMY Bilateral VARICOSE VEIN SURGERY Bilateral Vitals Default Flowsheet Data (Last 12 Hours) Adult PT Evaluation/Treatment Row Name 11/09/24 170 General Information Patient Profile Review yes General Observations of Patient pt back from surgery, resting in bed comfortably Row Name 11/09/24 170 Living Environment Lives With alone Living Arrangements house Home Accessibility stairs to enter home Number of Stairs to Enter Home 4 Stair Railings at Home outside, present at both sides Row Name 11/09/24 170 Equipment Details Equipment in the home Ambulation (row) Ambulation walker - rolling;cane - straight Equipment Used Prior to Admission -- used RW after L TKR Row Name 11/09/24 170 Functional Level Prior Prior Functional Level Comment Mod independent; pt did go to rehab facility after L TKR 4 mos ago Row Name 11/09/24 170 Cognitive Assessment/Intervention Behavior/Mood Observations (Cognitive) behavior appropriate to situation;cooperative Follows Commands/Answers Questions (Cognitive) 100% of the time;needs cueing Orientation Status (Cognitive) oriented x 4 Row Name 11/09/24 170 Pain Scale Pain Scale Pain Scale: Numbers Pre/Post-Treatment (Group) Row Name 11/09/24 170 Pain Scale: Numbers Treatment Pain: Pre Treatment (Numbers Scale) 5/10 Pain: During Treatment (Numbers Scale) 4/10 Pain: Post Treatment (Numbers Scale) 4/10 Pain Location - Side (Numbers Scale) Left Pain Location - Orientation (Numbers Scale) generalized Pain Location - Body (Numbers Scale) knee Multiple Pain Sites (Numbers) Two Row Name 11/09/24 170 Pain Scale 2 Pain: Pre Treatment 2 5/10 Pain: During Treatment 2 6/10 Pain: Post Treatment 2 6/10 Pain Location 2 - Side Right Pain Location 2 - Orientation generalized;anterior;posterior Pain Descriptors 2 Aching;Tightness Row Name 11/09/24 170 ROM (Range of Motion) General Range of Motion -- L knee flex~120, ext ~0 deg R knee flex~85 deg Row Name 11/09/24 170 MMT (Manual Muscle Testing) Additional Documentation -- Good L quad set, able to move LLE without assist Row Name 11/09/24 170 Bed Mobility Assessment/Treatment Scoot/Bridge Rush (Bed Mobility) supervision required Qjhtbe-mu-Vqh Rush (Bed Mobility) supervision required Impairments (Bed Mobility) pain;ROM (range of motion) decreased;strength decreased Comment (Bed Mobility) pt reports more pain R knee than [facility] 11/09/241699 Static Sitting Balance Static Sitting Position sitting, edge of bed Static Sitting Assistance Modified independence Static Sitting Balance Strategies Effective [facility] 11/09/24 170 Static Standing Balance Static Standing Position supported Static Standing Assistance Contact guard Static Standing Extremity Support Bilateral lower extremities;Bilateral upper extremities Static Standing Base Normal base Static Standing Balance Strategies Effective Static Standing Assistive Devices walker, rolling;gait belt [facility] 11/09/241699 Transfer Assessment/Treatment Sit-Stand Rush level (Transfers) contact guard assist;verbal cues required;nonverbal cues required (demo/gesture) Stand-Sit Rush level(Transfers) contact guard assist;verbal cues required;nonverbal cues required (demo/gesture) Cqh-Itwtr-Onk Assistive Device (Transfers) walker, rolling;gait belt Bed-Chair Rush level (Transfers) not tested pt asking to return to bed Maintain Weight Bearing Status (Transfers) able to maintain weight bearing status Impairments (Transfers) pain;ROM (range of motion) decreased;strength decreased [facility] 11/09/241699 Gait Assessment/Treatment Rush (Gait) contact guard assist;verbal cues required Assistive Device (Gait) walker, rolling;gait belt Distance in Feet (Gait) 15 x 2 Gait Deviations jf, decreased;step length, decreased Maintain Weight Bearing Status (Gait) able to maintain weight bearing status Safety Issues (Gait) sequencing ability decreased Impairments (Gait) pain;ROM (range of motion) decreased;strength decreased Comment (Gait) requires intermittent cueing for sequencing [facility] 11/09/241699 Therapeutic Exercise Lower Extremity Therapeutic Exercise and ROM ankle pumps, left;ankle pumps, right;gluteal sets;heelslides, left;heel slides, right;knee flexion-extension, left;knee flexion-extension, right;quad sets, left Exercise Type (Therapeutic Exercise) AAROM (active assistive range of motion);AROM (active range ofmotion);isometric contraction, static Position (Therapeutic Exercise) supine Sets/Reps (Therapeutic Exercise) 10 [facility] 11/09/241699 IP AM-PAC BASIC MOBILITY (Without Stair [...] (G8978) CK T-Scale Score (No Stairs) 43.03 Row Name 11/09/24 170 Coping Observed Emotional State cooperative;anxious Verbalized Emotional [...] left;rolling to right;scooting;sit to supine/supine to sit Rush Level/Cues Needed (Bed Mobility Goal 1, PT) independent Assitive Devices (Bed Mobility Goal 1, PT) none Time Frame (Bed Mobility Goal 1, PT) 2 days Row Name 11/09/24 170 Transfer Goal 1 (PT) Activity (Transfer Goal 1, PT) idq-mz-dttwl/jauqs-rf-dbc;heh-wp-vulsy/cljtx-jv-isk Rush Level/Cues Needed (Transfer Goal 1, PT) contact guard assist Assitive Devices (Transfer Goal 1, PT) walker, rolling Time Frame (Transfer Goal 1, PT) 2 days Row Name 11/09/24 1700 Gait Training Goal 1 (PT) Activity (Gait Training Goal 1, PT) gait (walking locomotion);diminish gait deviation;forward stepping;improve balance and speed;increase endurance/gait distance;normalize weight shifts Rush Level (Gait Training Goal 1, PT) contact guard assist Assistive Devices (Gait Training Goal 1, PT) walker, rolling;gait belt Distance (Gait Goal 1, PT) 100 ft Time Frame (Gait Training Goal 1, PT) 3 days Row Name 11/09/24 1700 Stairs Goal 1 (PT) Activity (Stairs Goal 1, PT) ascending stairs;descending stairs;using handrail, left;uzee-hj-yzzv Rush Level/Cues Needed (Stairs Goal 1, PT) supervision required Assistive Devices (Stairs Goal 1, PT) handrail;cane, straight Number of Stairs (Stairs Goal 1, PT) 4 Time Frame (Stairs Goal 1, PT) 3 days Row Name 11/09/24 1700 Electric Meter Inspector Goal (PT) Statement (Electric Meter Inspector Goal, PT) Return to PLOF Rush Level (Half-Way Goal, PT) modified independence Time Frame (Electric Meter Inspector Goal, PT) 2 weeks Maliha Banuelos, PT Licensure: [place], [place]: [id number] * Plan of Care - Janeth Elizabeth [...] and had uneventful recovery, report given to jonatan Martinez surgical site assessed. + CSM, pain management [...] : 1945 Operative Date: 11/09/2024 Medical Record: [id number] Preop Diagnosis: 1. 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 Arthroplasty, Knee, Condyle & Plateau; Medial & Lateral Compartments (45712) 2. Manipulation of Knee Joint under General Anesthesia (Includes Application of Traction or Other Fixation Devices) (16381) Surgeon: Saqib Santos M.D. Public Health: Anesthesia: Spinal with Regional Block Indications: 78y/o [...] easily reach. The ACL was debrided, as well as the medial and lateral menisci. We carefully examined the knee as anticipated, there was changes particular involving the lateral compartment. We did a [...] of the femur by using the universal rolloff truck driver. We found the location for the IM drill hole approximate 1 cm anteriorto the femoral attachment of the posterior cruciate ligament is slightly medial to the midline of the distal femur. We then attached the T-handled rolloff truck driver to the 516s IM devin [...] distal femur by using the quarter-inch peg drillto create the modular femoral distal fixation peg holes. We then removed the trial femoral component and direct attention towards the proximal tibia. Tibial [...] PM EDT Follow-Up [facility] AT [address] [facility] [address] [place] [address] Saqib Santos J.P., MD [address] [place] [id number] documented as of this encounter Procedures * Due to [place] [employer] law, this organization might not be sharing negative HIV tests. Procedure Name Priority Date/Time Associated Diagnosis Comments CBC AUTO DIFFERENTIAL Routine 11/10/2024 10:17 AM EST BASIC METABOLIC PANEL Routine 11/10/2024 10:17 AM EST XR KNEE 1 OR 2 VW LEFT Routine 11/09/2024 1:17 PM EST TISSUE EXAM Routine 11/09/2024 10:55 AM EST Primary osteoarthritis of left knee PA TOTAL KNEE ARTHROPLASTY 11/09/2024 9:44 AM EST Primary osteoarthritis of left knee Special Needs OSTEONICS/CHRISTIE documented in this encounter Results * Due to [place] [employer] law, this organization might not be sharing negative HIV tests. * (ABNORMAL) CBC Auto Differential (11/10/2024 10:17 AM EST) WBC 10.2 3.8 - 10.8 10*3/uL 11/10/2024 11:23 AM EST [facility] RBC 3.78(L) 3.80 - 5.10 10*6/uL 11/10/2024 11:23 AM EST [facility] Hemoglobin 11.1(L) 11.7 - 15.5 g/dL 11/10/2024 11:23 AM EST [facility] Hematocrit 34.6(L) 35.0 - 45.0 % 11/10/2024 11:23 AM EST [facility] MCV 91.5 80.0 - 100.0 fL 11/10/2024 11:23 AM EST [facility] MCH 29.4 27.0 - 33.0 pg 11/10/2024 11:23 AM EST [facility] MCHC 32.1 32.0 - 36.0 g/dL 11/10/2024 11:23 AM EST [facility] RDW 14.0 11.0 - 15.0 % 11/10/2024 11:23 AM EST [facility] Platelets 183 140 - 400 10*3/uL 11/10/2024 11:23 AM EST [facility] MPV 9.6 7.5 - 12.5 fL 11/10/2024 11:23 AM EST [facility] Neutrophil % 87.7 % 11/10/2024 11:23 AM EST [facility] Immature Grans % 0.4 0.0 - 0.9 % 11/10/2024 11:23 AM EST [facility] Lymphocyte % 5.6 % 11/10/2024 11:23 AM EST [facility] Monocyte % 6.2 % 11/10/2024 11:23 AM EST [facility] Eosinophil % 0.0 % 11/10/2024 11:23 AM EST [facility] Basophil % 0.1 % 11/10/2024 11:23 AM EST [facility] Neutrophil # 8.90(H) 1.50 - 7.80 10*3/uL 11/10/2024 11:23 AM EST [facility] Immature Grans # 0.04(H) <=0.03 10*3/uL 11/10/2024 11:23 AM EST [facility] Lymphocyte # 0.60(L) 0.85 - 3.90 10*3/uL 11/10/2024 11:23 AM EST [facility] Monocyte # 0.60 0.20 - 0.95 10*3/uL 11/10/2024 11:23 AM EST [facility] Eosinophil # <0.03 0.02 - 0.50 10*3/uL 11/10/2024 11:23 AM EST [facility] Basophil # <0.03 0.00 - 0.20 10*3/uL 11/10/2024 11:23 AM EST [facility] nRBC % 0.0 /100 WBCs 11/10/2024 11:23 AM EST [facility] nRBC # <0.01 <0.01 10*3/uL 11/10/2024 11:23 AM EST [facility] Blood Structure of peripheral vein / Unknown Venipuncture / Unknown 11/10/2024 10:17 AM EST 11/10/2024 10:32 AM EST Saqib Santos MD LAB BLOOD ORDERABLES Final R esult [facility] [address] [place] [address], * (ABNORMAL) Basic Metabolic Panel (11/10/2024 10:17 AM EST) NA 135 135 - 145 mmol/L 11/10/2024 11:10 AM EST [facility] K 4.7 3.5 - 5.3 mmol/L 11/10/2024 11:10 AM EST [facility] Cl 100 98 - 107 mmol/L 11/10/2024 11:10 AM EST [facility] CO2 25 22 - 32 mmol/L 11/10/2024 11:10 AM EST [facility] BUN 17 7 - 23 mg/dL 11/10/2024 11:10 AM EST [facility] Creatinine 1.13 0.50 - 1.20 mg/dL 11/10/2024 11:10 AM EST [facility] Glucose 256(H) 65 - 99 mg/dL 11/10/2024 11:10 AM EST [facility] Calcium 8.7 8.6 - 10.5 mg/dL 11/10/2024 11:10 AM EST [facility] Anion Gap 10 5 - 15 11/10/2024 11:10 AM EST [facility] eGFR 50(L) >=60 mL/min/1. 73m2 11/10/2024 11:10 AM EST [facility] Comment:The estimated glomer ular filtration rate [...] ORDERABLES Final R esult Performing Organization Address City/[facility] Co de Phone Number [facility] [address] [place] [address], [place] * X-Ray Knee Left 1 or [...] obtain the completed interpretation. ? Workstation ID: [id number] Narrative 11/09/2024 2:58 PM EST COMPARISON: ??06/04/2024. ?? FINDINGS AND Resulting Agency Comment [id number] Procedure Note Marlena Lakhani MD - 11/09/2024 [...] possible to obtain thecompleted interpretation. Workstation ID: [id number] us Saqib Santos MD IMG XR PROCEDURES Final Resu lt * Tissue Exam (11/09/2024 10:55 AM EST) Final Diagnosis Bone and Tissue, Left Knee: - Osteoarthritis with osteophyte formation and bony eburnation. [facility] MANUAL 11/16/2024 12:54 PM EDT [employer] [facility] at 1254 EDT Clinical History Pre-op diagnosis: Primary osteoarthritis of left knee [M17.12] [facility]UAL 11/16/2024 12:[address] [facility] Gross Description 1. Knee, [...] osteophyte formation. The margins are flat. A patient financial representative section is submitted in cassette 1A after fixation and decalcification. [facility] MANUAL 11/16/2024 12:[address] [facility] Gross Description User Grossing complete by Patel Sutherland on 11/09/2024 3:[address] [facility] MANUAL 11/16/2024 12:[address] [facility] Embedded Images [facility] MANUAL 11/16/2024 12:54 PM EDT [employer] [facility] Resulting Agency Case was signed out at [facility], Department of Pathology, [employer] 3 CLIA [id number] [facility] MANUAL 11/16/2024 12:[address] [facility] Report Header Surgical Pathology Report ? Case: [id number] ? Authorizing Provider: ??Saqib Santos MD ? Collected: ? 11/09/2024 1055 ? Ordering Location: ? [facility]- ?Received: ?11/09/2024 1308 ? [facility] [place] ? Surgery ? Pathologist: ? Campos Saini [...] [facility] [address] [place] [id number], documented in this encounter Visit Diagnoses Diagnosis Primary osteoarthritis of left knee- Primary Primary osteoarthritis of left knee Primary localized osteoarthritis of right knee documented in this encounter Admitting Diagnoses [...] Given 11/11/2024 11:56 PM EST 1 lozenge oral cyclobenzaprine (FLEXERIL) tablet 5 mg 5 mg, [...] Sat11/11/24 at 2351, Until Sat11/12/24 at 1820 miconazole 2% powder topical, 2 [...] Given 11/10/2024 7:58 PM EST 10 mL traZODone (DESYREL) tablet 100 mg 100 mg, [...] RN) 0835 (Given - Provider: Jordyn Fitzgerald RN)1649 (Given - Provider: Sandra Barroso RN) 0745 (Given - Provider: Jill Corea RN)155 (Given - Provider: Jill Corea RN) gabapentin (NEURONTIN) capsule 400 mg 400 mg, oral, Every 12 hours scheduled, First dose on Sat11/10/24 at 2100, Until Discontinued 2048 (Given - Provider: Arnold King RN) 08 (Given - Provider: Jordyn Fitzgerald RN)1999 (Given - Provider: Sandra Barroso RN) 07 (Given - Provider: Jill Corea RN) rivaroxaban [...] Is this a new start? New Start 844 (Given - Provider: Ladonna Verma RN) 08 (Given - Provider: Jordyn Fitzgerald RN) 07 (Given - Provider: Jill Corea RN) rOPINIRole (REQUIP) tablet 6 mg 6 mg, oral, Nightly, First dose on Sat11/10/24 at 2100, Until Discontinued 1955 (Given - Provider: Arnold King RN) 2207 (Given - Provider: Sandra Barroso RN) senna (SENOKOT) tablet 17.2 mg 17.2 mg, [...] lumen(s) have been flushed in comments section. 2357 (Given - Provider: Kevin Dominguez RN) sodium [...] Reason: Other - See Comment - Comment: Duplicate)1646 (Given - Provider: Sandra Barroso RN) 0748 (Given - Provider: Jill Corea RN) traZODone (DESYREL) tablet 100 mg 100 mg, oral, Nightly, First dose on Sat11/10/24 at 0045, Until Discontinued 0045 (Given - Provider: Ashok Welch RN)1956 (Given - Provider: Arnold King RN) 2207 (Given - Provider: Sandra Barroso RN) Continuous [...] heartburn, Starting on Sat11/09/24 at 1201, Until Sat11/12/24 at 1820 benzocaine-menthoL (CEPACOL) lozenge 1 lozenge [...] at 1820 0045 (Given - Provider: Ashok Welch RN)0845 (Given - Provider: Ladonna Verma RN)1957 (Given - Provider: Arnold King RN) 0835 (Given - Provider: Jordyn Fitzgerald RN)2356 (Given - Provider: Kevin Dominguez RN) diphenhydrAMINE (BENADRYL) capsule 25 mg 25 mg, oral, Every 6 hours PRN, itching, Starting on Sat11/09/24 at 1201, Until Camila 11/12/24 at 1820 0846 (Given - Provider: Jordyn Fitzgerald RN)1413 (Given - Provider: Jordyn Fitzgerald RN - Comment: notified MD of 2nd dose)1659 (Given - Provider: Sandra Barroso RN)2000 (Given [...] 11/12/24 at 1820, Apply to affected areas. 1414 (Given - Provider: Jordyn Fitzgerald RN) morphine injection 1 mg(Linked Group 2) 1 mg, intravenous, Every 2 hour PRN, Moderate pain or 4-6 (on the numeric pain scale), Starting on 11/09/24 at 1201, Until Camila 11/12/24 at 1820, Assess pain, sedation, and respiratory rate prior to each opioid administration. 1650 (Given - Provider: Sandra Barroso RN)2000 (Given - Provider: Sandra Barroso RN) morphine injection 2 mg(Linked Group 2) 2 mg, intravenous, Every 2 hour PRN, Moderate pain or 4-6 (on the numeric pain scale), Starting on 11/09/24 at 1201, Until Camila 11/12/24 at 1820, [...] administration. 0151 (Given - Provider: Ashok Welch RN)416 (Given - Provider: Ashok Welch RN) 0831 (See Alternative - Provider: Jordyn Fitzgerald RN)134 (See Alternative - Provider: Jordyn Fitzgerald RN)1947 [...] RN)2355 (Given - Provider: Kevin Dominguez RN) 0788 (Given - Provider: Jill Corea RN)1205 (Given - Provider: Jill Corea RN)1552 (Given - Provider: Jill Corea RN - Comment: admin 13 minutes early, patient leaving via ambulance to [facility], [address], needs [...] instructions, Starting on Sat11/09/24 at 1201, Until [place] 11/12/24 at 1820, Flush each lumen with [...] administration. documented in this encounter Care Teams Toe Lining Closer Relationship Specialty Start Date End Date Chen [address] 1960 [place] [address] PCP - General Internal Medicine 05/01/24 documented as of this encounter
== END 2024-11-23 15:15 | disposition home or self-care (01) ==
LOC: HO.HMCC 13:57
PROVIDERS: PCP Internal Medicine; Visit Provider Internal Medicine
DX: Z96.652 Presence of left artificial knee joint (principal); K59.00 Constipation, unspecified; F41.9 Anxiety disorder, unspecified

== ENCOUNTER → 2024-11-23 13:56 | Outpatient (BNVA) | payer MEDICARE, OTHER, SELFPAY | PROVIDERS: PCP Internal Medicine; Visit Provider Internal Medicine | DX: K59.00 Constipation, unspecified (principal); F41.9 Anxiety disorder, unspecified; Z96.652 Presence of left artificial knee joint | CPT/HCPCS: 99212 ==

== ENCOUNTER 2024-12-03 12:26 | Outpatient (REF) | payer MEDICARE, OTHER, SELFPAY ==
--- NOTE | ~2024-12-03 | MM_ITS ---
EXAMINATION: MM SCREENING DIGITAL BREAST TOMOSYNTHESIS, BILATERAL CLINICAL INFORMATION: Screening. Asymptomatic. History of right breast cancer status post lumpectomy. COMPARISON: Mammography: Comparison is made with available priors TECHNIQUE: Digital breast mammography with tomosynthesis is performed in both the craniocaudal and mediolateral oblique views along with computer-aided detection (CAD). FINDINGS: The breasts are heterogeneously dense, which may obscure small masses (ACR BI-RADS breast composition Category c). Right post lumpectomy changes are stable. There are no significant masses, abnormal calcifications, or other abnormalities. MM/MM tomosynthesis screening BI IMPRESSION: No mammographic evidence of malignancy. ASSESSMENT: BI-RADS BI-RADS 2 - Benign Findings RECOMMENDATION: Routine annual mammography screening. 1 year F/U This examination should not preclude the clinical evaluation of a suspicious palpable abnormality. This patient's information was entered into a reminder system with a target due date for their next mammogram. Electronically signed by: Carolin Worley DO 12/03/2024 01:21 PM EDT
--- OUTSIDE RECORDS SUMMARY | 2024-12-03 15:38 | XMS_ITS | Referral Summary ---
Author Organization [facility] Address [address] [place] [address] Care Team Providers Care Corrugated Box Machine Operator Name Role Phone DonnChen Primary Care Provider [phone] Encounters Date Type Department Care Team Description 11/30/2024 [facility] [address] [address] Saqib Santos J.P., MD 11/09/2024 7:37 AM EST - 11/12/2024 4:10 PM EST Hospital Encounter [facility] 2 Medical Surgery Unit [address] [place] [address] Saqib Santos J.P., MD Primary localized osteoarthritis of right knee (Primary Dx); Primary osteoarthritis of left knee Discharge Disposition: Inpatient Rehab Facility (IRF) (62) 11/09/2024 9:40 AM EST - 11/09/2024 12:[address] [facility] Day Surgery [address] [place] [address] Saqib Santos J.P., MD ARTHROPLASTY, KNEE, CONDYLE AND PLATEAU; MEDIAL AND LATERAL COMPARTMENTS WITH OR WITHOUT PATELLA RESURFACING (TOTAL KNEE ARTHROPLASTY) [17601 (CPT??)] 11/09/2024 9:59 AM EST Anesthesia Event [facility] Day Surgery [address] [place] [address] Jimmy Liu MD Foley, Joseph P, MD 10/29/2024 Prep for Case [facility] [address] [address] Saqib Santos J.P., MD 10/29/2024 1:00 PM EST Office Visit [facility] [address] [address] Saqib Santos J.P., MD Arthritis of left knee (Primary Dx); Arthrofibrosis of knee joint, right 10/27/2024 myChart Message Initial Department [address] [place] [address] Mychart, Generic Provider Questionnaire Submission 10/27/2024 myChart Message Initial Department [address] [place] [address] Mychart, Generic Provider Questionnaire Submission 10/27/2024 myChart Message Initial Department [address] [place] [address] Mychart, Generic Provider Questionnaire Submission 10/27/2024 myChart Message Initial Department [address] [place] [address] Mychart, Generic Provider Questionnaire Submission 10/26/2024 myChart Message Initial Department [address] [place] [address] Mychart, Generic Provider Questionnaire Submission 10/26/2024 myChart Message [facility] Surgery [address] [place] [address] Mychart, Generic Provider Questionnaire due soon 10/24/2024 myChart Message Initial Department [address] [place] [address] Mychart, Generic Provider Questionnaire Submission 10/24/2024 myChart Message Initial Department [address] [place] [address] Mychart, Generic Provider Questionnaire Submission 10/22/2024 myChart Message [facility] [address] [address] Mychart, Generic Provider Surgery Paperwork 10/21/2024 11:35 AM EST Ancillary Procedure [facility] [address] [address] History of total right knee replacement 10/21/2024 11:40 AM EST Follow-Up [facility] [address] [address] Saqib Santos J.P., MD Primary osteoarthritis of left knee (Primary Dx); History of total right knee replacement 10/20/2024 Telephone [facility] [address] [place] [address] Saqib Santos J.P., MD 09/09/2024 Refill [facility] [address] [place] [address] Saqib Santos J.P., MD from Last 3 [...] by mouth 2 times daily after meals. Active rivaroxaban (XARELTO) 10 mg tablet Take [...] Team (Late st Contact Info) Description 12/03/2024 3:45 PM EDT Telehealth CC [facility] [place] [facility] AT [address] [address] Saqib Santos J.P., MD [address] [place] [address] Medical Devices Implanted Type Area Maintenance Mechanic Device Identifier Shelf Expiration Date Model / Serial / Lot Patella Asymmetric Metal Backed Tritanium Size A32 [id number] Tritanium - [id number] Implanted:Qty: 1 on 07/20/2024 by Saqib Santos J.P., MD at [facility] Implant Right: Knee CHRISTIE [id number] 04/09/2029 5552-L-32 0 / / [id number] Insert Tibial Bearing Size 4 11mm Triathlon X3 - [id number] Implanted:Qty: 1 on 07/20/2024 by Saqib Santos J.P., MD at [facility] Implant Right: Knee CHRISTIE [id number] 03/27/2029 5531-G-41 1-E / / [id number] Component Femoral Knee Cruciate Retaining Right Size 4 - [id number] Implanted:Qty: 1 on 07/20/2024 by Saqib Santos J.P., MD at [facility] Implant Right: Knee CHRISTIE [id number] 04/25/2029 5517-F-40 2 / / [id number] Baseplate Tritanium Size 4 Triathlon - [id number] Implanted:Qty: 1 on 07/20/2024 by Saqib Santos J.P., MD at [facility] Implant Right: Knee CHRISTIE [id number] 03/02/2029 5536-B-40 0 / / [id number] Component Femoral Cruciate Retaining Beaded Left Size 4 Triathlon - [id number] Implanted:Qty: 1 on 11/09/2024 by Saqib Santos J.P., MD at [facility] Implant Left: Knee CHRISTIE [id number] 01/22/2029 5517-F-40 1 / / [id number] Baseplate Tritanium Size 4 Triathlon - [id number] Implanted:Qty: 1 on 11/09/2024 by Saqib Santos J.P., MD at [facility] Implant Left: Knee CHRISTIE [id number] 08/27/2029 5536-B-40 0 / / [id number] Patella Asymmetric Metal Backed Tritanium Size A32 [id number] Tritanium - [id number] Implanted:Qty: 1 on 11/09/2024 by Saqib Santos J.P., MD at [facility] Implant Left: Knee CHRISTIE [id number] 01/21/2029 5552-L-32 0 / / [id number] Tibial Bearing Insert Size 4 9mm Triathlon - [id number] Implanted:Qty: 1 on 11/09/2024 by Saqib Santos J.P., MD at [facility] Implant Left: Knee CHRISTIE [id number] 06/18/2029 5531-G-40 9-E / / [id number] Procedures * Due to [place] state law, this organization might not be sharing negative HIV tests. Procedure Name Priority Date/Time Associated Diagnosis Comments CBC AUTO DIFFERENTIAL Routine 11/10/2024 10:17 AM EST BASIC METABOLIC PANEL Routine 11/10/2024 10:17 AM EST XR KNEE 1 OR 2 VW LEFT Routine 11/09/2024 1:17 PM EST TISSUE EXAM Routine 11/09/2024 10:55 AM EST Primary osteoarthritis of left knee OR TOTAL KNEE ARTHROPLASTY 11/09/2024 9:44 AM EST Primary osteoarthritis of left knee Special Needs OSTEONICS/CHRISTIE OR AN PAIN BLOCK AT SURGEON REQUEST Routine 11/09/2024 9:40 AM EST OR AN PERIPHERAL BLOCK POST-OP PAIN Routine 11/09/2024 [...] Last 3 Months Results * Due to [place] state law, this organization might not be sharing negative HIV tests. * (ABNORMAL) CBC Auto Differential (11/10/2024 10:17 AM EST) WBC 10.2 3.8 - 10.8 10*3/uL 11/10/2024 11:23 AM EST [facility] RBC 3.78(L) 3.80 - 5.10 10*6/uL 11/10/2024 11:23 AM EST [facility] Hemoglobin 11.1(L) 11.7 - 15.5 g/dL 11/10/2024 11:23 AM EST [facility] Hematocrit 34.6(L) 35.0 - 45.0 % 11/10/2024 11:23 AM EST [facility] MCV 91.5 80.0 - 100.0 fL 11/10/2024 11:23 AM EST [facility] MCH 29.4 27.0 - 33.0 pg 11/10/2024 11:23 AM EST [facility] MCHC 32.1 32.0 - 36.0 g/dL 11/10/2024 11:23 AM EST [facility] RDW 14.0 11.0 - 15.0 % 11/10/2024 11:23 AM EST [facility] Platelets 183 140 - 400 10*3/uL 11/10/2024 11:23 AM EST [facility] MPV 9.6 7.5 - 12.5 fL 11/10/2024 11:23 AM EST [facility] Neutrophil % 87.7 % 11/10/2024 11:23 AM [facility] Immature Grans % 0.4 0.0 - 0.9 % 11/10/2024 11:23 AM EST [facility] Lymphocyte % 5.6 % 11/10/2024 11:23 AM EST [facility] Monocyte % 6.2 % 11/10/2024 11:23 AM EST [facility] Eosinophil % 0.0 % 11/10/2024 11:23 AM EST [facility] Basophil % 0.1 % 11/10/2024 11:23 AM EST [facility] Neutrophil # 8.90(H) 1.50 - 7.80 10*3/uL 11/10/2024 11:23 AM EST [facility] Immature Grans # 0.04(H) <=0.03 10*3/uL 11/10/2024 11:23 AM EST [facility] Lymphocyte # 0.60(L) 0.85 - 3.90 10*3/uL 11/10/2024 11:23 AM EST [facility] Monocyte # 0.60 0.20 - 0.95 10*3/uL 11/10/2024 11:23 AM EST [facility] Eosinophil # <0.03 0.02 - 0.50 10*3/uL 11/10/2024 11:23 AM EST [facility] Basophil # <0.03 0.00 - 0.20 10*3/uL 11/10/2024 11:23 AM EST [facility] nRBC % 0.0 /100 WBCs 11/10/2024 11:23 AM EST [facility] nRBC # <0.01 <0.01 10*3/uL 11/10/2024 11:23 AM [facility] Blood Structure of peripheral vein / Unknown Venipuncture / Unknown 11/10/2024 10:17 AM EST 11/10/2024 10:32 AM EST us Saqib Santos MD LAB BLOOD ORDERABLES Final R esult [facility] [address] [place] [address], * (ABNORMAL) Basic Metabolic Panel (11/10/2024 10:17 AM EST) Only the most recent of2 resultswithin the time period is included. NA 135 135 - 145 mmol/L 11/10/2024 11:10 AM EST [facility] K 4.7 3.5 - 5.3 mmol/L 11/10/2024 11:10 AM EST [facility] Cl 100 98 - 107 mmol/L 11/10/2024 11:10 AM EST [facility] CO2 25 22 - 32 mmol/L 11/10/2024 11:10 AM EST [facility] BUN 17 7 - 23 mg/dL 11/10/2024 11:10 AM EST [facility] Creatinine 1.13 0.50 - 1.20 mg/dL 11/10/2024 11:10 AM EST [facility] Glucose 256(H) 65 - 99 mg/dL 11/10/2024 11:10 AM EST [facility] Calcium 8.7 8.6 - 10.5 mg/dL 11/10/2024 11:10 AM EST [facility] Anion Gap 10 5 - 15 11/10/2024 11:10 AM [facility] eGFR 50(L) >=60 mL/min/1. 73m2 11/10/2024 11:10 AM EST [facility] Comment:The estimated glomer ular filtration rate (eGFR) is calculated using a new formula developed by the NKF-ASN task force to eliminate race-based correction factors. The new formula uses serum/plasma creatinine, age, and gender to determine eGFR. A value below 60mls/min might indicate kidney disease and will be flagged. For additional information, see Zamora et al, Am J Kidney Dis. 2021;79(2):268- 288, A Unifying Approach for GFR estimation: Recommendations of the NKF-ASN Task Force on Reassessing the Inclusion of Race in Diagnosing Kidney Disease . Blood Structure of peripheral vein / Unknown Venipuncture / Unknown 11/10/2024 10:17 AM EST 11/10/2024 10:32 AM EST us Saqib Santos MD LAB BLOOD ORDERABLES Final R esult [facility] [address] [place] [address], [place] * X-Ray Knee Left 1 or [...] obtain the completed interpretation. ? Workstation ID: [id number] Narrative 11/09/2024 2:58 PM EST COMPARISON: ??06/04/2024. ?? FINDINGS AND Resulting Agency Comment [id number] Procedure Note Marlena Lakhani MD - 11/09/2024 [...] possible to obtain thecompleted interpretation. Workstation ID: [id number] us Saqib Santos MD IMG XR PROCEDURES Final Resu lt * Tissue Exam (11/09/2024 10:55 AM EST) Final Diagnosis Bone and Tissue, Left Knee: - Osteoarthritis with osteophyte formation and bony eburnation. [facility] 11/16/2024 12:54 PM EDT [facility] at 1254 EDT Clinical History Pre-op diagnosis: Primary osteoarthritis of left knee [M17.12] [facility] MANUAL 11/16/2024 12:54 PM EDT [facility] Gross Description 1. [...] osteophyte formation. The margins are flat. A business representative section is submitted in cassette 1A after fixation and decalcification. [facility] MANUAL 11/16/2024 12:54 PM EDT [facility] Gross Description User Grossing complete by Patel Sutherland on 11/09/2024 3:23 PM [facility] MANUAL 11/16/2024 12:54 PM EDT [facility] Embedded Images [facility] MANUAL 11/16/2024 12:54 PM EDT [facility] Resulting Agency Case was signed out at [facility], Department of Pathology, [employer] 3 [place] [id number] [facility] MANUAL 11/16/2024 12:54 PM EDT [facility] Report Header Surgical Pathology Report ? Case: [id number] ? Authorizing Provider: ??Saqib Santos MD ? Collected: ? 11/09/2024 1055 ? Ordering Location: ? [facility]- ?Received: ?11/09/2024 1308 ? [facility] ? Surgery ? Pathologist: ? Campos Saini MD ? Specimen: ?Knee, Left, LEFT KNEE BONE AND TISSUE ? 11/16/2024 12:54 PM EDT [facility] Bone Structure of left knee region / Unknown 11/09/2024 10:55 AM EST 11/09/2024 1:08 PM EST Comment:Pre-op diagnosis: Primary osteoarthritis of left knee [M17.12] us Saqib Santos MD LAB PATHOLOGY/CYTOLOGY ORDER DAREN Final Result [facility] [address] [place] [address], * OR AN PERIPHERAL BLOCK POST-OP PAIN, OR AN PAIN BLOCK AT SURGEON REQUEST (11/09/2024 [...] performed Peripheral Block Ultrasound #1 Probe: Linear [id number] Patient position: supine Prep: ChloraPrep Patient monitoring: [...] surrounding nerve on ultrasound Paresthesia pain: none us Jimmy Liu MD ANESTHESIA ORDERABLES Edited Result - Final * Methicillin Resistant Staphylococcus aureus (MRSA) Culture Screen (10/29/2024 2:13 PM EST) Culture No methicillin resistant Staphylococcus aureus (MRSA) isolated. 10/31/2024 5:[address] [facility] Swab Nasal structure / Unknown Non-Blood Collection / Unknown 10/29/2024 2:13 PM EST 10/29/2024 2:13 PM EST Narrative [facility] - 10/31/2024 5:56 AM EST [facility] Received Date: MICRO NUMBER: [id number] SPECIMEN QUALITY: Adequate SOURCE: SWAB NOSE STATUS: FINAL Saqib Santos MD LAB MICROBIOLOGY - GENERAL O RDERABLES Final Result [facility] [address] [facility] [address], [place] [address], [place] [phone] [facility] [address] [facility] [address], [place] [address], * CBC (10/29/2024 2:04 PM EST) Pathologist [facility] WBC 5.1 3.8 - 10.8 10*3/uL 10/29/2024 2:25 PM EST [facility] RBC 4.30 3.80 - 5.10 10*6/uL 10/29/2024 2:25 PM EST [facility] Hemoglobin 12.9 11.7 - 15.5 g/dL 10/29/2024 2:25 PM EST [facility] Hematocrit 40.0 35.0 - 45.0 % 10/29/2024 2:25 PM EST [facility] MCV 93.0 80.0 - 100.0 fL 10/29/2024 2:25 PM EST [facility] MCH 30.0 27.0 - 33.0 pg 10/29/2024 2:25 PM EST [facility] MCHC 32.3 32.0 - 36.0 g/dL 10/29/2024 2:25 PM EST [facility] RDW 13.9 11.0 - 15.0 % 10/29/2024 2:25 PM EST [facility] Platelets 277 140 - 400 10*3/uL 10/29/2024 2:25 PM EST [facility] MPV 9.2 7.5 - 12.5 fL 10/29/2024 2:25 PM EST [facility] Blood Structure of peripheral vein / Unknown Venipuncture / Unknown 10/29/2024 2:04 PM EST 10/29/2024 2:04 PM EST Ashok Potter MD LAB BLOOD ORDERABLES Final Res ult Performing Organization Address [facility]/ZIP Co de Phone Number [facility] [address] [place] [address], * Type and screen (10/29/2024 2:04 PM [...] BANK TEST ORDERABLES Edited Result - Final Performing Organization Address City/[facility]/ZIP Co de Phone Number [facility] [address] [place] [address], [place] [phone] * X-Ray Knee Right 4+ Views (10/21/2024 11:30 AM EST) Anatomical Region Laterality Modality Lower Extremities, Knee Right Computed Radiography Saqib Santos MD IMG XR PROCEDURES Final Resu lt from Last 3 Months Insurance MEDICARE [facility] MEDICARE [facility] SUPP Advance Directives Documents on File Type Date Recorded Patient Training And Development Coordinator Cierra blackwood Health Care Proxy 07/02/2024 1:51 PM Telly jackson Health Care Proxy * Full Code (Latest Code Status on File) Date Activated Date Inactivated Comments 11/09/2024 12:05 PM 11/12/2024 6:25 PM * Full Code Date Activated Date Inactivated Comments 07/20/2024 12:55 PM 07/22/2024 3:45 PM Care Teams Corrugated Box Machine Operator Relationship Specialty Start Date End Date Chen Pop [facility] [place] [address] PCP - General Internal Medicine 05/01/24
--- OUTSIDE RECORDS SUMMARY | 2024-12-03 15:38 | XMS_ITS | Encounter Summary ---
Author Organization [facility] Address [address] [place] [address] Care Team Providers Care Hematology Nurse Educator Name Role Phone Lorraine Popanna Primary Care Provider [phone] Encounter Details Date Type Department Care Team (Late st Contact Info) Description 10/22/2024 [facility] [address] [address] [employer], [facility] Provider [address] [place] [address] Surgery Paperwork Social History Tobacco Use Types [...] 3:45 PM EDT Telehealth CC [facility] AT [address] [facility] [address] [place] [address] Saqib Santos J.P., MD [address] [place] [address] documented as of this encounter Visit Diagnoses Not on filedocumented in this encounter Care Teams Hematology Nurse Educator Relationship Specialty Start Date End Date Chen Pop [facility] [place] [address] PCP - General Internal Medicine 05/01/24 documented as of this encounter
--- OUTSIDE RECORDS SUMMARY | 2024-12-03 15:38 | XMS_ITS | Encounter Summary ---
Author Organization [facility] Address [address] [place] [address] Care Team Providers Care Model And Pattern Supervisor Name Role Phone Chen Pop Primary Care Provider [phone] Encounter Details Date Type Department Care Team (Late st Contact Info) Description 07/06/2024 myChart Message Initial Department [address] [place] [address] Mychart, Generic Provider [address] [place] [address] Questionnaire Submission Social History Tobacco Use [...] PM EDT Telehealth CC [facility] AT [address] [place] [address] Saqib Santos J.P., MD [address] [place] [address] documented as of this encounter Visit Diagnoses Not on filedocumented in this encounter Care Teams Model And Pattern Supervisor Relationship Specialty Start Date End Date Chen Pop [address] [place] [address] PCP - General Internal Medicine 05/01/24 documented as of this encounter
--- OUTSIDE RECORDS SUMMARY | 2024-12-03 15:38 | XMS_ITS | Clinical Summary ---
Author Organization [address] Address [address] [place] [address] Phone Care Team Providers Care Bread Oven Operator Name Role Phone Judy Mack MD Primary Care Provider [phone] Social History Tobacco Use Types Packs/Day Years [...] mmol/L LAB CHEMISTRY METHOD 07/31/2024 8:55 AM [facility] Potassium 4.4 3.5 - 5.5 mmol/L LAB CHEMISTRY METHOD 07/31/2024 8:55 AM [facility] Chloride 107 96 - 110 mmol/L LAB CHEMISTRY METHOD 07/31/2024 8:55 AM [facility] CO2 30 21 - 32 mmol/L LAB CHEMISTRY METHOD 07/31/2024 8:55 AM [facility] Anion Gap 4 3 - 11 LAB CHEMISTRY METHOD 07/31/2024 8:55 AM [facility] Glucose 82 70 - 100 mg/dL LAB CHEMISTRY METHOD 07/31/2024 8:55 AM [facility] BUN 20 5 - 25 mg/dL LAB CHEMISTRY METHOD 07/31/2024 8:55 AM [facility] Creatinine 0.92 0.50 - 1.10 mg/dL LAB CHEMISTRY METHOD 07/31/2024 8:55 AM [facility] eGFR 64 >=60 mL/min/1. 73m2 LAB CHEMISTRY METHOD 07/31/2024 8:55 AM [facility] Comment:Calculation based on the??Chronic Kidney Disease Epidemiology Collaboration (CKD-EPI) equation refit??without adjustment for race. BUN/Creatinine Ratio 21.7 LAB CHEMISTRY METHOD 07/31/2024 8:55 AM [facility] Calcium 8.4(L) 8.5 - 10.5 mg/dL LAB CHEMISTRY METHOD 07/31/2024 8:55 AM [facility] Blood Venous blood specimen / Unknown Venipuncture / Unknown 07/31/2024 4:39 AM EST 07/31/2024 7:14 AM EST us Brian Avalos MD LAB BLOOD ORDERABLES Final Res ult [facility] [address] [place] [address], from Last 3 Months or Most Recently Relevant to Health Maintenance Care Teams Bread Oven Operator Relationship Specialty Start Date End Date Judy Mack MD [address] [place] [id number] PCP - General Internal Medicine 06/25/17
--- OUTSIDE RECORDS SUMMARY | 2024-12-03 15:38 | XMS_ITS | Encounter Summary ---
Author Organization [facility] Address [address] [place] [address] Care Team Providers Care Process Development Chemist Name Role Phone Lorraine Popanna Primary Care Provider [phone] Encounter Details Date Type Department Care Team (Late st Contact Info) Description 10/26/2024 [employer] Message [facility] Surgery [address] [place] [address] [phone] [employer], [facility] Provider [facility]ly [facility] [place] [address] Questionnaire due soon Social History [...] PM EDT Telehealth CC [facility] AT [address] [facility] [address] [place] [address] Saqib Santos J.P., MD [address] [place] [address] documented as of this encounter Visit Diagnoses Not on filedocumented in this encounter Care Teams Process Development Chemist Relationship Specialty Start Date End Date Chen Pop [address] [place] [address] PCP - General Internal Medicine 05/01/24 documented as of this encounter
--- OUTSIDE RECORDS SUMMARY | 2024-12-03 15:38 | XMS_ITS | Data Portability ---
Author Organization [facility] [address] Address [address] [place] [address] Care Team Providers Care Cricket Coach Name Role Phone KIEL JACKSON Primary Care Provider DOMINIC WINN Haul Driver Unavailable Assessment No assessment recorded. Plan of Treatment Reminders Order Date Submit Date Provider Last Modified By Organization Details Last Modified Time Details Appointments None recorded. Lab None recorded. Referral None recorded. Procedures None recorded. Surgeries None recorded. Imaging None recorded. Medication Orders prednisone 20 mg tablet 2022 023 [facility] #[id number], [address] [place], [address], 18:14:52 Allergy Relief (fluticason e) 50 mcg/actuati on nasal spray,suspe nsion 2022 023 [facility][id number], [address] [place], [address], 18:14:53 benzonatate 100 mg capsule 2022 023 [id number] [address] [place], [address], 18:14:53 Patient TargetsNo targets recorded. Patient Instructions Encounter Date Encounter Id Patient Instructions Last Modified By Organization Details Last Modified Time 11/18/2022 [id number] earache: care instructions Not available 11/18/2022 18:14:50 ear infection (otitis media): care instructions Not available 11/18/2022 18:14:50 Sinusitis is an infection of the lining of the sinus cavities in your head. Sinusitis often follows a cold. It causes pain and pressure in your head and face. In most cases, sinusitis gets better on its own in 1 to 2 weeks. But some mild symptoms may last for several weeks. Sometimes antibiotics are needed. if you are having problems. It's also a good idea to know your test results and keep a list of the medicines you take. How can you care for yourself at home? Take an eegy-wiy-uuuzcfo pain medicine. Avoid Ibuprofen, Aleve and Aspirin if . If the doctor prescribed antibiotics, take them as directed. Do not stop taking them just because you feel better. You need to take the full course of antibiotics. Be careful when taking xfvf-bkm-iyvhnhq cold or influenza (flu) medicines and Tylenol at the same time. Many of these medicines have acetaminophen, which is Tylenol. Read the labels to make sure that you are not taking more than the recommended dose. Too much acetaminophen (Tylenol) can be harmful. Breathe warm, moist air from a steamy shower, a hot bath, or a sink filled with hot water. Avoid cold, dry air. Using a humidifier in your home may help. Follow the directions for cleaning the machine. Use saline (saltwater) nasal washes. This can help keep your nasal passages open and wash out mucus and bacteria. You can buy saline nose drops at a grocery store or drugstore. Or you can make your own at home by adding 1 teaspoon (5 millilitres) of salt and 1 teaspoon (5 millilitres) of baking soda to 2 cups (500 mL) of distilled water. If you make your own, fill a bulb syringe with the solution, insert the tip into your nostril, and squeeze gently. Blow your nose. Put a hot, wet towel or a warm gel pack on your face 3 or 4 times a day for 5 to 10 minutes each time. Try a decongestant nasal spray like oxymetazoline (Drixoral). Do not use it for more than 3 days in a row. Using it for more than 3 days can make your congestion worse. Not available 11/18/2022 18:14:48 Reason for Referral None Reported. Problems Name Problem SNOMED Code Status Onset Date Resolution Date Notes Provider Name and Address Organization Details Recorded Time Multiple myeloma 098598610 Active 2022 ROSEMARY Nelson [facility] 3 17:53:44 Hypertensive disorder 05601130 Active 2022 JOHN CHALOROSEMARY Jackman [facility] 3 17:53:54 Problem Notes None recorded. Medical Equipment None Reported. Allergies No known drug allergies Medications Name Sig Start Date Stop Date Status Note LastModified by Organization Details LastModified Time prednisone 20 mg tablet Take 2 tablets every day by oral route in the morning for 4 days. 2022 active Not Available Not Available Not Avai lable benzonatate 100 mg capsule Take 1 capsule 3 times a day by oral route as needed for 7 days. 2022 active Not Available Not Available Not Avai lable pantoprazol e 40 mg tablet,bren yed release Take 1 tablet every day by oral route. active Not Available Not Available No t Available ropinirole 0.5 mg tablet Take 1 tablet 3 times a day by oral route. active Not Available Not Available No t Available lisinopril 10 mg-hydrochl orothiazide 12.5 mg tablet Take 1 tablet every day by oral route. active Not Available Not Available No t Available fluticasone propionate 50 mcg/actuati on nasal spray,suspe nsion SPRAY 1 SPRAY BY INTRANASA L ROUTE TWICE A DAY DIRECTED active Not Available Not Available No t Available Zometa 4 mg/5 mL intravenous solution Inject by intraveno us route. active Not Available Not Available No t Available duloxetine 60 mg capsule,del ayed release Take 1 capsule every day by oral route. active Not Available Not Available No t Available acyclovir active Not Available Not Elle ilable Not Available aspirin active Not Available Not Avail able Not Available lisinopril 11/18 completed Not Available Not Available Not Available trazodone active Not Available Not Elle ilable Not Available Stool Softener active Not Available Not Available Not Available gabapentin active Not Available Not Av ailable Not Available Senna Plus active Not Available Not Av ailable Not Available Probiotic active Not Available Not Elle ilable Not Available prochlorper azine active Not Available Not Available Not Available Ninlaro 3 mg capsule Take 1 capsule every week by oral route. active Not Available Not Available No t Available Alive Calcium-Vit harrington D3 active Not Available Not Available Not Available Vitals Date Recorded Body height Body mass index (BMI) Body weight Oxygen saturation Oxygen saturation in Arterial blood by Pulse oximetry Heart rate Respiratory rate Body temperature Pain severity - 0-10 verbal numeric rating [Score] - Reported Systolic blood pressure Diastolic blood pressure Provider Name and Address Organization Details Last Updated DateTime 3 165.1 cm 25 kg/m2 14962.8 6 g 96 % 96 % 72 /min 16 /min 98.2 [degF] 10 129 mm[Hg] 79 mm[Hg] JOHN ISABEL [facility] - [facility] 3 17:57:14 Social History Question Answer Notes LastModified by Organizat ion Details LastModified Time Tobacco Smoking Status Never Smoker JOHN dubois, [place] - [facility] 11/18/2022 17:54:47 What Is Your Level Of Alcohol Consumption? None Information not available 11/18/2022 Are You Currently Employed? No Information not available 11/18/2022 Do You Use Any Illicit Or Recreational Drugs? No Information not available 11/18/2022 Have You Recently Traveled Abroad? No Information not available 11/18/2022 Do You Or Have You Ever Used Any Other Forms Of Tobacco Or Nicotine? No Information not available 11/18/2022 Sex: Unknown Functional Status None recorded. Mental Status None recorded. Family History Relationship Description Onset Age of this Age Resolved Age Notes LastModified by Organization Details LastModified Time Mother Myocardial infarction Not available 11/18 17:54:36 Medical History No medical history recorded. Gynecological HistoryNo gynecological history recorded. Obstetrics History GPAL:G 0 P 0 0 0 0 Immunizations Vaccine Type Date Status Note Provider Nam e and Address Organization Details Recorded Time zoster recombinant 2 completed JOHN CHALO null, PA - [facility] 11/18/2022 17:47:53 zoster recombinant 2 completed JOHN CHALO null, PA - [facility] 11/18/2022 17:47:53 Influenza, high-dose, quadrivalent, PF 2 completed JOHN CHALO null, PA - [facility] 11/18/2022 17:47:53 Influenza, adjuvanted, quadrivalent, PF 0 completed JOHN CHALO null, PA - [facility] 11/18/2022 17:47:53 Influenza, adjuvanted, quadrivalent, PF 1 completed JOHN CHALO null, PA - [facility] 11/18/2022 17:47:53 COVID-19, mRNA, LNP-S, PF, 30 mcg/0.3 mL dose 1 completed JOHN CHALO null, PA - [facility] 11/18/2022 17:47:53 COVID-19, mRNA, LNP-S, PF, 30 mcg/0.3 mL dose 1 completed JOHN CHALO null, PA - [facility] 11/18/2022 17:47:53 COVID-19, mRNA, LNP-S, PF, 30 mcg/0.3 mL dose 1 completed JOHN CHALO null, PA - [facility] 11/18/2022 17:47:53 COVID-19, mRNA, LNP-S, bivalent, PF, 30 mcg/0.3 mL dose 2 completed JOHN CHALO null, PA - [facility] 11/18/2022 17:47:53 Tdap 2 completed JOHN CHALO null, PA - [facility] 11/18/2022 17:47:53 Pneumococcal conjugate PCV 13 9 completed JOHN CHALO null, PA - [facility] 11/18/2022 17:47:53 Pneumococcal conjugate PCV 13 1 completed JOHN CHALO null, PA - [facility] 11/18/2022 17:47:53 Influenza, high-dose, trivalent, PF 8 completed JOHN CHALO null, PA - [facility] 11/18/2022 17:47:53 Influenza, high-dose, trivalent, PF 9 completed JOHN CHALO null, PA - [facility] 11/18/2022 17:47:53 Influenza, high-dose, trivalent, PF 6 completed JOHN CHALO null, PA - [facility] 11/18/2022 17:47:53 Td (adult), 5 Lf tetanus toxoid, preservative free, adsorbed 7 completed JOHN CHALO null, PA - [facility] 11/18/2022 17:47:53 Td (adult), 5 Lf tetanus toxoid, preservative free, adsorbed 3 completed JOHN CHALO null, PA - [facility] 11/18/2022 17:47:53 Td (adult), 2 Lf tetanus toxoid, preservative free, adsorbed 8 completed JOHN CHALO null, PA - [facility] 11/18/2022 17:47:53 Past Encounters Encounter ID Performer Location Encounter Start Date Encounter Closed Date Diagnosis/Indication Diagnosis SNOMED-CT Code Diagnosis ICD10 Code Diagnosis Note [id number] [address] [address] [place] [address] 0 03/25/2016 11:14:20 03/25/2016 11:58:56 [id number] [address] [address] [place] [address]3026-543 0 03/02/2018 16:03:13 03/02/2018 16:52:53 [id number] [address] [facility] [address] [place] [address]20[address] 0 07/22/2021 15:33:18 07/22/2021 16:11:17 [id number] [address] [address] [place] [address]37-[address] 0 01/31/2018 09:28:34 01/31/2018 10:29:41 [id number] [address] [address] [place] [address]279[address]398 0 12/01/2018 18:58:33 12/01/2018 19:26:38 [id number] [facility] [address] [place] [address] 84741-261 0 09/03/2016 11:54:52 09/03/2016 13:42:24 [id number] [facility] [address] [place] [address] 08/31/2020 11:01:29 08/31/2020 11:34:54 [id number] [address] [address] [place] [address] 05/02/2016 10:40:45 05/02/2016 14:04:40 [id number] [facility] [place] [address] 06/18/2019 11:15:53 06/18/2019 11:48:03 [id number] [facility] [address] [place] [address] 12/16/2016 17:56:52 12/16/2016 18:36:33 [id number] [address] [address] [address] [place] [address] 08/08/2018 08:24:52 08/08/2018 09:05:11 [id number] [address] [address] [place] [address] 06/26/2017 13:50:56 06/26/2017 14:55:17 [id number] [address] [address] [place] [address] 03/25/2018 09:24:49 03/25/2018 10:44:58 [id number] Tuan Jacques [place] [address] [address] [facility] [place] [address] 11/18/2022 13:19:00 11/18/2022 18:19:29 Acute sinusitis 08621732 J01.90 Health Concerns Section Related Observation LastModified by Organization Detai ls LastModified Time None Recorded Concern Status LastModified by Organization Details LastModified Time None Recorded Advance Directives Directive None Recorded Payers Encounter Date Sequence Insurance Name Policy Number Policy Rod Covered Member ID Rod Member ID Guarantor Name 12/01/2018 1 [place] [employer] Lillian Copeland [id number] Lillian Min 12/01/2018 2 [facility] [id number] Lillian Min [id number] Lillian Min 06/18/2019 1 [place] [employer] Lillian Wallis Min [id number] Lillian Min 06/18/2019 2 [facility] [id number] Lillian Min [id number] Lillian Min 08/31/2020 1 [place] [employer] Lillian Kadi Copeland [id number] Lillian Min 08/31/2020 2 [facility] [id number] Lillian Min [id number] Lillian Min 07/22/2021 1 [place] [employer] Lillian Kadi Copeland [id number] Lillian Copeland 07/22/2021 2 [facility] [id number] Lillian Min [id number] Lillian Copeland 11/18/2022 1 [place] [employer] Lillian Kadi Copeland [id number] Lillian Copeland 11/18/2022 2 [facility] [id number] Lillian Min [id number] Lillian Min Notes Date Note Type Note Provider Name and Address Organization Details Recorded Time 11/18/2022 text/html CongestionReport ed bypatient.Notes:nasal congestion with post nasal drip x 3 days. denies nay fever or fever with chills. no SOB or respiratory distress.Ear Pain Brief HPIReported bypatient.Location:pain radiates to neck; bilateral Onset/Timing:intermitte nt pain; gradual onset Duration:occurs daily; sensation/episode variable length Quality:aching pain;sharp pain Severity:getting worse; current pain /10 Context:recent ear infection Alleviating factors:ototopical antibiotics: ; nasal steroid spray Aggravating factors:sinus infections; allergies; irrigation of ear Associated Symptoms:Cough;nasal congestion;nasal discharge Tuan Jacques NP [address] [place], [address], [place] - [facility] 11/18/2022 18:17:58 OBGyn Episode No OBEpisode recorded.
--- OUTSIDE RECORDS SUMMARY | 2024-12-03 15:38 | XMS_ITS | Encounter Summary ---
Author Organization [facility] Address [address] [place] [address] Care Team Providers Care Stone Repairer Name Role Phone Chen Pop Primary Care Provider [phone] Encounter Details Date Type Department Care Team (Late st Contact Info) Description 07/06/2024 myChart Message Initial Department [address] [place] [phone] Mychart, Generic Provider [address] [place] [address] Questionnaire Submission Social History Tobacco Use [...] PM EDT Telehealth CC [facility] AT [address] [place] [address] Saqib Santos J.P., MD [address] [place] [address] documented as of this encounter Visit Diagnoses Not on filedocumented in this encounter Care Teams Stone Repairer Relationship Specialty Start Date End Date Chen Pop [address] [place] [address] PCP - General Internal Medicine 05/01/24 documented as of this encounter
--- OUTSIDE RECORDS SUMMARY | 2024-12-03 15:38 | XMS_ITS | Encounter Summary ---
Author Organization [facility] Address [address] [place] [address] Care Team Providers Care Analysis Tester Name Role Phone Judy Mack MD Primary Care Provider [phone] Encounter Details Date Type Department Care Team (Late st Contact Info) Description 07/29/2024 Lab Requisition [facility] - Main Lab [address] [place] [id number] Brian Avalos MD [address] [place] [address] Other specified arthritis, unspecified site Social History [...] AM EST) WBC 5.3 4.8 - 10.8 K/[facility] LAB HEMETOLOGY METHOD 07/29/2024 9:24 AM [facility] RBC 2.90(L) 3.80 - 4.80 M/mcL LAB HEMETOLOGY METHOD 07/29/2024 9:24 AM [facility] Hemoglobin 9.2(L) 11.5 - 16.0 g/dL LAB HEMETOLOGY METHOD 07/29/2024 9:24 AM [facility] LAB Hematocrit 29.5(L) 35.0 - 47.0 % LAB HEMETOLOGY METHOD 07/29/2024 9:24 AM [facility] MCV 100.7(H) 79.0 - 98.0 FL LAB HEMETOLOGY METHOD 07/29/2024 9:24 AM [facility] LAB MCH 31.4 27.0 - 32.0 pcg LAB HEMETOLOGY METHOD 07/29/2024 9:24 AM [facility] MCHC 31.2(L) 32.0 - 37.0 g/dL LAB HEMETOLOGY METHOD 07/29/2024 9:24 AM [facility] LAB RDW 14.3 11.0 - 15.0 % LAB HEMETOLOGY METHOD 07/29/2024 9:24 AM [facility] Platelets 226 130 - 400 K/mcL LAB HEMETOLOGY METHOD 07/29/2024 9:24 AM [facility] LAB MPV 10.7 7.0 - 11.0 FL LAB HEMETOLOGY METHOD 07/29/2024 9:24 AM [facility] NRBC 0.0 <1.0 % LAB HEMETOLOGY METHOD 07/29/2024 9:24 AM [facility] NRBC Absolute 0.00 <0.10 K/mcL LAB HEMETOLOGY METHOD 07/29/2024 9:24 AM [facility] Blood Venous blood specimen / Unknown Venipuncture / Unknown 07/29/2024 5:32 AM EST 07/29/2024 8:28 AM EST us Brian Avalos MD LAB BLOOD ORDERABLES Final Res ult [facility] [address] [place] [address], [place] [phone] * (ABNORMAL) Comprehensive metabolic panel (07/29/2024 5:32 AM EST) Sodium 141 133 - 145 mmol/L LAB CHEMISTRY METHOD 07/29/2024 10:01 AM [facility] Potassium 4.2 3.5 - 5.5 mmol/L LAB CHEMISTRY METHOD 07/29/2024 10:01 AM [facility] Chloride 104 96 - 110 mmol/L LAB CHEMISTRY METHOD 07/29/2024 10:01 AM [facility] CO2 31 21 - 32 mmol/L LAB CHEMISTRY METHOD 07/29/2024 10:01 AM [facility] Anion Gap 6 3 - 11 LAB CHEMISTRY METHOD 07/29/2024 10:01 AM [facility] Glucose 91 70 - 100 mg/dL LAB CHEMISTRY METHOD 07/29/2024 10:01 AM [facility] BUN 22 5 - 25 mg/dL LAB CHEMISTRY METHOD 07/29/2024 10:01 AM [facility] Creatinine 0.87 0.50 - 1.10 mg/dL LAB CHEMISTRY METHOD 07/29/2024 10:01 AM [facility] LAB eGFR 69 >=60 mL/min/1. 73m2 LAB CHEMISTRY METHOD 07/29/2024 10:01 AM [facility] Comment:Calculation based on the??Chronic Kidney Disease Epidemiology Collaboration (CKD-EPI) equation refit??without adjustment for race. BUN/Creatinine Ratio 25.3 LAB CHEMISTRY METHOD 07/29/2024 10:01 AM [facility] Calcium 8.8 8.5 - 10.5 mg/dL LAB CHEMISTRY METHOD 07/29/2024 10:01 AM [facility] AST (SGOT) 18 10 - 42 unit/L LAB CHEMISTRY METHOD 07/29/2024 10:01 AM [facility] ALT (SGPT) 14 10 - 60 unit/L LAB CHEMISTRY METHOD 07/29/2024 10:01 AM [facility] Alkaline Phosphatase 59 42 - 121 unit/L LAB CHEMISTRY METHOD 07/29/2024 10:01 AM [facility] Total Protein 5.2(L) 6.0 - 8.0 g/dL LAB CHEMISTRY METHOD 07/29/2024 10:01 AM [facility] Albumin 2.3(L) 3.2 - 5.0 g/dL LAB CHEMISTRY METHOD 07/29/2024 10:01 AM [facility] Total Bilirubin 0.5 0.0 - 1.4 mg/dL LAB CHEMISTRY METHOD 07/29/2024 10:01 AM [facility] Blood Venous blood specimen / Unknown Venipuncture / Unknown 07/29/2024 5:32 AM EST 07/29/2024 8:28 AM EST us Brian Avalos MD LAB BLOOD ORDERABLES Final Res ult [facility] [address] [place] [address], documented in this encounter Visit Diagnoses Diagnosis Other specified arthritis, unspecified site documented in this encounter Care Teams Analysis Tester Relationship Specialty Start Date End Date Judy Mack MD [address] [facility] [address] [place] [address] PCP - General Internal Medicine 06/25/17 documented as of this encounter
--- OUTSIDE RECORDS SUMMARY | 2024-12-03 15:38 | XMS_ITS | Encounter Summary ---
Author Organization [facility] Address [address] [place] [address] Care Team Providers Care Director Surgical Name Role Phone Lorraine Popanna Primary Care Provider [phone] Encounter Details Date Type Department Care Team (Late st Contact Info) Description 10/26/2024 Eyegroove Message Initial Department [address] [place] [address] Mychart, Generic Provider Pending sale to [facility] [place] [address] Questionnaire Submission Social History Tobacco [...] 3:45 PM EDT Telehealth CC [facility] AT [address] [facility] [address] [place] [address] Saqib Santos J.P., MD [address] [place] [address] documented as of this encounter Visit Diagnoses Not on filedocumented in this encounter Care Teams Director Surgical Relationship Specialty Start Date End Date Chen Pop [address] [place] [address] PCP - General Internal Medicine 05/01/24 documented as of this encounter
--- OUTSIDE RECORDS SUMMARY | 2024-12-03 15:38 | XMS_ITS | Clinical Summary ---
Author Organization [facility] Address [address] [facility] [address] [place] [address] Phone Care Team Providers Care Hospice Manager Name Role Phone Unavailable Primary Care Provider [...] Take 400 Units by mouth daily Active [place]-3 1000 MG capsule Take 1 capsule by [...] age to complete this topic Insurance MEDICARE [facility] MEDICARE [facility]
--- OUTSIDE RECORDS SUMMARY | 2024-12-03 15:38 | XMS_ITS | Encounter Summary ---
Author Organization [facility] Address [address] [place] [address] Care Team Providers Care Hris Administrator Name Role Phone Judy Mack MD Primary Care Provider Encounter Details Date Type Department Care Team (Late st Contact Info) Description 07/23/2024 Lab Requisition [facility] - Main Lab [address] [facility] [place] [address] Brian Avalos MD [address] [place] [address] Pain in right knee Social History Tobacco [...] CBC auto differential (07/23/2024 7:18 AM EST) [facility] WBC 7.5 4.8 - 10.8 K/mcL LAB HEMETOLOGY METHOD 07/23/2024 9:03 AM [facility] RBC 3.40(L) 3.80 - 4.80 M/mcL LAB HEMETOLOGY METHOD 07/23/2024 9:03 AM [facility] Hemoglobin 11.0(L) 11.5 - 16.0 g/dL LAB HEMETOLOGY METHOD 07/23/2024 9:03 AM [facility] Hematocrit 34.0(L) 35.0 - 47.0 % LAB HEMETOLOGY METHOD 07/23/2024 9:03 AM [facility] MCV 99.4(H) 79.0 - 98.0 FL LAB HEMETOLOGY METHOD 07/23/2024 9:03 AM [facility] MCH 32.2(H) 27.0 - 32.0 pcg LAB HEMETOLOGY METHOD 07/23/2024 9:03 AM [facility] MCHC 32.4 32.0 - 37.0 g/dL LAB HEMETOLOGY METHOD 07/23/2024 9:03 AM [facility] RDW 13.6 11.0 - 15.0 % LAB HEMETOLOGY METHOD 07/23/2024 9:03 AM [facility] Platelets 185 130 - 400 K/mcL LAB HEMETOLOGY METHOD 07/23/2024 9:03 AM [facility] MPV 10.4 7.0 - 11.0 FL LAB HEMETOLOGY METHOD 07/23/2024 9:03 AM [facility] NRBC 0.0 <1.0 % LAB HEMETOLOGY METHOD 07/23/2024 9:03 AM [facility] NRBC Absolute 0.00 <0.10 K/mcL LAB HEMETOLOGY METHOD 07/23/2024 9:03 AM [facility] Neutrophils Relative 76.7 % LAB HEMETOLOGY METHOD 07/23/2024 9:03 AM [facility] Lymphocytes Relative 10.0 % LAB HEMETOLOGY METHOD 07/23/2024 9:03 AM [facility] Monocytes Relative 11.9 % LAB HEMETOLOGY METHOD 07/23/2024 9:03 AM [facility] Eosinophils Relative 0.4 % LAB HEMETOLOGY METHOD 07/23/2024 9:03 AM [facility] Basophils Relative 0.3 % LAB HEMETOLOGY METHOD 07/23/2024 9:03 AM [facility] Immature Granulocytes Relative 0.7 % LAB HEMETOLOGY METHOD 07/23/2024 9:03 AM [facility] Neutrophils Absolute 5.76 1.50 - 7.00 K/mcL LAB HEMETOLOGY METHOD 07/23/2024 9:03 AM [facility] Lymphocytes Absolute 0.75(L) 1.00 - 5.00 K/mcL LAB HEMETOLOGY METHOD 07/23/2024 9:03 AM [facility] Monocytes Absolute 0.89 0.20 - 1.00 K/mcL LAB HEMETOLOGY METHOD 07/23/2024 9:03 AM [facility] Eosinophils Absolute 0.03 0.00 - 0.50 K/mcL LAB HEMETOLOGY METHOD 07/23/2024 9:03 AM [facility] Basophils Absolute 0.02 0.00 - 0.20 K/mcL LAB HEMETOLOGY METHOD 07/23/2024 9:03 AM [facility] Immature Granulocytes Absolute 0.05(H) 0.00 - 0.03 K/mcL LAB HEMETOLOGY METHOD 07/23/2024 9:03 AM [facility] Blood Venous blood specimen / Unknown Venipuncture / Unknown 07/23/2024 7:18 AM EST 07/23/2024 8:08 AM EST Brian Avalos MD LAB BLOOD ORDERABLES Final Res ult [facility] [address] [place] [address], [place] [phone] * Magnesium (07/23/2024 7:18 AM EST) Pathologist [facility] Magnesium 2.1 1.9 - 2.6 mg/dL LAB CHEMISTRY METHOD 07/23/2024 9:38 AM EST [facility] Blood Venous blood specimen / Unknown Venipuncture / Unknown 07/23/2024 7:18 AM EST 07/23/2024 8:08 AM EST Brian Avalos MD LAB BLOOD ORDERABLES Final Res ult Performing Organization Address City/[facility]/ZIP Co de Phone Number [facility] [address] [place] [address], [place] [phone] * (ABNORMAL) Comprehensive metabolic panel (07/23/2024 7:18 AM EST) [facility] Sodium 136 133 - 145 mmol/L LAB CHEMISTRY METHOD 07/23/2024 9:38 AM [facility] Potassium 4.3 3.5 - 5.5 mmol/L LAB CHEMISTRY METHOD 07/23/2024 9:38 AM [facility] Chloride 103 96 - 110 mmol/L LAB CHEMISTRY METHOD 07/23/2024 9:38 AM EST [facility] CO2 28 21 - 32 mmol/L LAB CHEMISTRY METHOD 07/23/2024 9:38 AM [facility] Anion Gap 5 3 - 11 LAB CHEMISTRY METHOD 07/23/2024 9:38 AM EST [facility] Glucose 92 70 - 100 mg/dL LAB CHEMISTRY METHOD 07/23/2024 9:38 AM [facility] BUN 14 5 - 25 mg/dL LAB CHEMISTRY METHOD 07/23/2024 9:38 AM [facility] Creatinine 0.96 0.50 - 1.10 mg/dL LAB CHEMISTRY METHOD 07/23/2024 9:38 AM [facility] eGFR 61 >=60 mL/min/1. 73m2 LAB CHEMISTRY METHOD 07/23/2024 9:38 AM [facility] Comment:Calculation based on the??Chronic Kidney Disease Epidemiology Collaboration (CKD-EPI) equation refit??without adjustment for race. BUN/Creatinine Ratio 14.6 LAB CHEMISTRY METHOD 07/23/2024 9:38 AM [facility] Calcium 7.8(L) 8.5 - 10.5 mg/dL LAB CHEMISTRY METHOD 07/23/2024 9:38 AM [facility] AST (SGOT) 11 10 - 42 unit/L LAB CHEMISTRY METHOD 07/23/2024 9:38 AM [facility] ALT (SGPT) 11 10 - 60 unit/L LAB CHEMISTRY METHOD 07/23/2024 9:38 AM [facility] Alkaline Phosphatase 49 42 - 121 unit/L LAB CHEMISTRY METHOD 07/23/2024 9:38 AM [facility] Total Protein 5.3(L) 6.0 - 8.0 g/dL LAB CHEMISTRY METHOD 07/23/2024 9:38 AM [facility] Albumin 2.5(L) 3.2 - 5.0 g/dL LAB CHEMISTRY METHOD 07/23/2024 9:38 AM [facility] Total Bilirubin 0.4 0.0 - 1.4 mg/dL LAB CHEMISTRY METHOD 07/23/2024 9:38 AM [facility] Blood Venous blood specimen / Unknown Venipuncture / Unknown 07/23/2024 7:18 AM EST 07/23/2024 8:08 AM EST us Brian Avalos MD LAB BLOOD ORDERABLES Final Res ult [facility] [address] [place] [address], [place] [phone] documented in this encounter Visit Diagnoses Diagnosis Pain in right knee documented in this encounter Care Teams Hris Administrator Relationship Specialty Start Date End Date Judy Mack MD [address] [facility] [address] [place] [address] PCP - General Internal Medicine 06/25/17 documented as of this encounter
--- OUTSIDE RECORDS SUMMARY | 2024-12-03 15:38 | XMS_ITS | Encounter Summary ---
Author Organization [facility] Address [address] [place] [address] Care Team Providers Care Director Of Security Name Role Phone Judy Mack MD Primary Care Provider [phone] Encounter Details Date Type Department Care Team (Late st Contact Info) Description 07/23/[address] [facility] - Main Lab [address] [facility] [place] [phone] Brian Avalos MD [address] [place] [address] Pain in right knee Social History Tobacco [...] knee documented in this encounter Care Teams Director Of Security Relationship Specialty Start Date End Date Judy Mcak MD [address] [facility] [place] [facility] [address] [place] [phone] PCP - General Internal Medicine 06/25/17 documented as of this encounter
--- OUTSIDE RECORDS SUMMARY | 2024-12-03 15:38 | XMS_ITS | Encounter Summary ---
Author Organization [facility] Address [address] [place] [address] Care Team Providers Care Research & Analytics Manager Name Role Phone Lorraine Popanna Primary Care Provider [phone] Encounter Details Date Type Department Care Team (Late st Contact Info) Description 10/24/2024 [employer] Message Initial Department [address] [place] [address] Mychart, Generic Provider [facility] [place] [address] Questionnaire Submission Social History Tobacco [...] 3:45 PM EDT Telehealth CC [facility] AT [address] [facility] [address] [place] [address] Saqib Santos J.P., MD [address] [place] [address] documented as of this encounter Visit Diagnoses Not on filedocumented in this encounter Care Teams Research & Analytics Manager Relationship Specialty Start Date End Date Chen Pop [address] [place] [address] PCP - General Internal Medicine 05/01/24 documented as of this encounter
--- OUTSIDE RECORDS SUMMARY | 2024-12-03 15:38 | XMS_ITS | Encounter Summary ---
Author Organization [facility] Address [address] [place] [address] Care Team Providers Care Pattern Changer And Repairer Name Role Phone Judy Mack MD Primary Care Provider Encounter Details Date Type Department Care Team (Late st Contact Info) Description 07/31/2024 Lab Requisition [facility] - Main Lab [address] [facility] [place] [address] Brian Avalos MD [address] [place] [address] Encounter for other general examination Social History [...] AM EST) WBC 4.7(L) 4.8 - 10.8 K/[facility] LAB HEMETOLOGY METHOD 07/31/2024 8:[address] [facility] RBC 2.90(L) 3.80 - 4.80 M/[facility] LAB HEMETOLOGY METHOD 07/31/2024 8:[address] [facility] Hemoglobin 9.0(L) 11.5 - 16.0 g/dL LAB HEMETOLOGY METHOD 07/31/2024 8:[address] [facility] LAB Hematocrit 29.1(L) 35.0 - 47.0 % LAB HEMETOLOGY METHOD 07/31/2024 8:[address] [facility] LAB MCV 101.4(H) 79.0 - 98.0 FL LAB HEMETOLOGY METHOD 07/31/2024 8:[address] [facility] LAB MCH 31.4 27.0 - 32.0 pcg LAB HEMETOLOGY METHOD 07/31/2024 8:[address] [facility] LAB MCHC 30.9(L) 32.0 - 37.0 g/dL LAB HEMETOLOGY METHOD 07/31/2024 8:[address] [facility] LAB RDW 14.1 11.0 - 15.0 % LAB HEMETOLOGY METHOD 07/31/2024 8:[address] [facility] LAB Platelets 299 130 - 400 K/[facility] LAB HEMETOLOGY METHOD 07/31/2024 8:[address] [facility] LAB MPV 10.4 7.0 - 11.0 FL LAB HEMETOLOGY METHOD 07/31/2024 8:[address] [facility] LAB NRBC 0.0 <1.0 % LAB HEMETOLOGY METHOD 07/31/2024 8:[address] [facility] LAB NRBC Absolute 0.00 <0.10 K/[facility] LAB HEMETOLOGY METHOD 07/31/2024 8:[address] [facility] Neutrophils Relative 59.5 % LAB HEMETOLOGY METHOD 07/31/2024 8:[address] [facility] LAB Lymphocytes Relative 25.3 % LAB HEMETOLOGY METHOD 07/31/2024 8:[address] [facility] Monocytes Relative 11.8 % LAB HEMETOLOGY METHOD 07/31/2024 8:[address] [facility] Eosinophils Relative 1.7 % LAB HEMETOLOGY METHOD 07/31/2024 8:[address] [facility] Basophils Relative 0.6 % LAB HEMETOLOGY METHOD 07/31/2024 8:[address] [facility] Immature Granulocytes Relative 1.1 % LAB HEMETOLOGY METHOD 07/31/2024 8:[address] [facility] LAB Neutrophils Absolute 2.82 1.50 - 7.00 K/mcL LAB HEMETOLOGY METHOD 07/31/2024 8:[address] [facility] LAB Lymphocytes Absolute 1.20 1.00 - 5.00 K/mcL LAB HEMETOLOGY METHOD 07/31/2024 8:[address] [facility] LAB Monocytes Absolute 0.56 0.20 - 1.00 K/mcL LAB HEMETOLOGY METHOD 07/31/2024 8:[address] [facility] LAB Eosinophils Absolute 0.08 0.00 - 0.50 K/mcL LAB HEMETOLOGY METHOD 07/31/2024 8:[address] [facility] Basophils Absolute 0.03 0.00 - 0.20 K/mcL LAB HEMETOLOGY METHOD 07/31/2024 8:[address] [facility] LAB Immature Granulocytes Absolute 0.05(H) 0.00 - 0.03 K/mcL LAB HEMETOLOGY METHOD 07/31/2024 8:[address] [facility] LAB Blood Venous blood specimen / Unknown Venipuncture / Unknown 07/31/2024 4:39 AM EST 07/31/2024 7:14 AM EST us Brian Avalos MD LAB BLOOD ORDERABLES Final Res ult [facility] [address] [place] [address], [place] [phone] * (ABNORMAL) Basic metabolic panel (07/31/2024 4:39 AM EST) Sodium 141 133 - 145 mmol/L LAB CHEMISTRY METHOD 07/31/2024 8:55 AM EST [facility] Potassium 4.4 3.5 - 5.5 mmol/L LAB CHEMISTRY METHOD 07/31/2024 8:[address] [facility] Chloride 107 96 - 110 mmol/L LAB CHEMISTRY METHOD 07/31/2024 8:[address] [facility] CO2 30 21 - 32 mmol/L LAB CHEMISTRY METHOD 07/31/2024 8:[address] [facility] LAB Anion Gap 4 3 - 11 LAB CHEMISTRY METHOD 07/31/2024 8:[address] [facility] Glucose 82 70 - 100 mg/dL LAB CHEMISTRY METHOD 07/31/2024 8:[address] [facility] BUN 20 5 - 25 mg/dL LAB CHEMISTRY METHOD 07/31/2024 8:[address] [facility] LAB Creatinine 0.92 0.50 - 1.10 mg/dL LAB CHEMISTRY METHOD 07/31/2024 8:[address] [facility] LAB eGFR 64 >=60 mL/min/1. 73m2 LAB CHEMISTRY METHOD 07/31/2024 8:[address] [facility] LAB Comment:Calculation based on the??Chronic Kidney Disease Epidemiology Collaboration (CKD-EPI) equation refit??without adjustment for race. BUN/Creatinine Ratio 21.7 LAB CHEMISTRY METHOD 07/31/2024 8:[address] [facility] Calcium 8.4(L) 8.5 - 10.5 mg/dL LAB CHEMISTRY METHOD 07/31/2024 8:55 AM EST [facility] Blood Venous blood specimen / Unknown Venipuncture / Unknown 07/31/2024 4:39 AM EST 07/31/2024 7:14 AM EST us Brian Avalos MD LAB BLOOD ORDERABLES Final Res ult [facility] [address] [place] [address], documented in this encounter Visit Diagnoses Diagnosis Encounter for other general examination documented in this encounter Care Teams Pattern Changer And Repairer Relationship Specialty Start Date End Date Judy Mack MD [address] [facility] [address] [place] [address] PCP - General Internal Medicine 06/25/17 documented as of this encounter
--- OUTSIDE RECORDS SUMMARY | 2024-12-03 15:38 | XMS_ITS | Encounter Summary ---
Author Organization [facility] Address [address] [place] [address] Care Team Providers Care Gi Technician Name Role Phone Chen Pop Primary Care Provider [phone] Encounter Details Date Type Department Care Team (Late st Contact Info) Description 07/06/2024 myChart Message Initial Department [address] [place] [address] Mychart, Generic Provider [address] [place] [address] Questionnaire Submission Social History Tobacco Use [...] PM EDT Telehealth CC [facility] AT [address] [facility] [address] [place] [address] Saqib Santos J.P., MD [address] [place] [address] documented as of this encounter Visit Diagnoses Not on filedocumented in this encounter Care Teams Gi Technician Relationship Specialty Start Date End Date Chen Pop [address] [place] [address] PCP - General Internal Medicine 05/01/24 documented as of this encounter
--- OUTSIDE RECORDS SUMMARY | 2024-12-03 15:38 | XMS_ITS | Encounter Summary ---
Author Organization [facility] Address [address] [place] [address] Care Team Providers Care Electronic Science Teacher Name Role Phone Lorraine Popanna Primary Care Provider [phone] Encounter Details Date Type Department Care Team (Late st Contact Info) Description 10/27/2024 [employer] Message Initial Department [address] [place] [address] Mychart, Generic Provider [facility] [place] [address] Questionnaire Submission Social History Tobacco [...] 3:45 PM EDT Telehealth CC [facility] AT [address] [facility] [address] [place] [address] Saqib Santos J.P., MD [address] [place] [address] documented as of this encounter Visit Diagnoses Not on filedocumented in this encounter Care Teams Electronic Science Teacher Relationship Specialty Start Date End Date Chen Pop [address] [place] [address] PCP - General Internal Medicine 05/01/24 documented as of this encounter
--- OUTSIDE RECORDS SUMMARY | 2024-12-03 15:38 | XMS_ITS | Encounter Summary ---
Author Organization [facility] Address [address] [place] [address] Care Team Providers Care Drain Tile Machine Operator Name Role Phone Lorraine Popanna Primary Care Provider [phone] Encounter Details Date Type Department Care Team (Late st Contact Info) Description 10/24/2024 [employer] Message Initial Department [address] [place] [address] Mychart, Generic Provider [facility] [place] [address] Questionnaire Submission Social History Tobacco [...] 3:45 PM EDT Telehealth CC [facility] AT [address] [facility] [address] [place] [address] Saqib Santos J.P., MD [address] [place] [address] documented as of this encounter Visit Diagnoses Not on filedocumented in this encounter Care Teams Drain Tile Machine Operator Relationship Specialty Start Date End Date Chen Pop [address] [place] [address] PCP - General Internal Medicine 05/01/24 documented as of this encounter
--- OUTSIDE RECORDS SUMMARY | 2024-12-03 15:38 | XMS_ITS | Clinical Summary ---
Author Organization [facility] Address [address] [place] [address] Care Team Providers Care Deputy Sheriff Generalist Name Role Phone Chen Pop Primary Care Provider [phone] Allergies No known active allergies Medications DULoxetine [...] Date Type Department Care Team Description 11/30/2024 Telephone [facility] [address] [place] [address] Saqib Santos J.P., MD 11/09/2024 9:59 AM EST Anesthesia Event [facility] Day Surgery [address] [place] [address] Jimmy Liu MD Foley, Joseph P, MD 11/09/2024 9:40 AM EST - 11/09/2024 12:25 PM EST Surgery [facility] Day Surgery [address] [place] [address] Saqib Santos J.P., MD ARTHROPLASTY, KNEE, CONDYLE AND PLATEAU; MEDIAL AND LATERAL COMPARTMENTS WITH OR WITHOUT PATELLA RESURFACING (TOTAL KNEE ARTHROPLASTY) [29144 (CPT??)] 11/09/2024 7:37 AM EST - 11/12/2024 4:10 PM EST Hospital Encounter [facility] [address] [place] [address] Saqib Santos J.P., MD Primary localized osteoarthritis of right knee (Primary Dx); Primary osteoarthritis of left knee Discharge Disposition: Inpatient Rehab Facility (IRF) (62) 10/29/2024 1:00 PM EST Office Visit [facility] [address] [address] Saqib Santos J.P., MD Arthritis of left knee (Primary Dx); Arthrofibrosis of knee joint, right 10/29/2024 Prep for Case [facility] [address] [address] Saqib Santos J.P., MD 10/27/2024 myChart Message Initial Department [address] [place] [address] Mychart, Generic Provider Questionnaire Submission 10/27/2024 myChart Message Initial Department [address] [place] [address] Mychart, Generic Provider Questionnaire Submission 10/27/2024 myChart Message Initial Department [address] [place] [address] Mychart, Generic Provider Questionnaire Submission 10/27/2024 myChart Message Initial Department [address] [place] [address] Mychart, Generic Provider Questionnaire Submission 10/26/2024 myChart Message Initial Department [address] [place] [address] Mychart, Generic Provider Questionnaire Submission 10/26/2024 myChart Message [facility] Surgery [address] [place] [address] Mychart, Generic Provider Questionnaire due soon 10/24/2024 myChart Message Initial Department [address] [place] [address] Mychart, Generic Provider Questionnaire Submission 10/24/2024 myChart Message Initial Department [address] [place] [address] Mychart, Generic Provider Questionnaire Submission 10/22/2024 Jigar Message [facility] [address] [address] Zoya Sprague Provider Surgery Paperwork 10/21/2024 11:40 AM EST Follow-Up [facility] [address] [address] Saqib Santos J.P., MD Primary osteoarthritis of left knee (Primary Dx); History of total right knee replacement 10/21/2024 11:35 AM EST Ancillary Procedure [facility] [address] [address] History of total right knee replacement 10/20/2024 Telephone [facility] [address] [address] Saqib Santos J.P., MD 09/09/2024 Refill [facility] [address] [address] Saqib Santos J.P., MD from Last 3 [...] PM EDT Telehealth CC [facility] [place] AT [address] [facility] [address] [place] [address] Saqib Santos J.P., MD [address] [place] [address] Health Maintenance Due Date Last Done Comments [...] this topic Medical Devices Implanted Type Area Salesperson Men'S Hats Device Identifier Shelf Expiration Date Model / Serial / Lot Patella Asymmetric Metal Backed Tritanium Size A32 [id number] Tritanium - [id number] Implanted:Qty: 1 on 07/20/2024 by Saqib Santos J.P., MD at [facility] Implant Right: Knee CHRISTIE [id number] 04/09/2029 5552-L-32 0 / / [id number] Insert Tibial Bearing Size 4 11mm Triathlon X3 - [id number] Implanted:Qty: 1 on 07/20/2024 by Saqib Santos J.P., MD at [facility] Implant Right: Knee CHRISTIE [id number] 03/27/2029 5531-G-41 1-E / / [id number] Component Femoral Knee Cruciate Retaining Right Size 4 - [id number] Implanted:Qty: 1 on 07/20/2024 by Saqib Santos J.P., MD at [facility] Implant Right: Knee HCRISTIE [id number] 04/25/2029 5517-F-40 2 / / [id number] Baseplate Tritanium Size 4 Triathlon - [id number] Implanted:Qty: 1 on 07/20/2024 by Saqib Santos J.P., MD at [facility] Implant Right: Knee CHRISTIE [id number] 03/02/2029 5536-B-40 0 / / [id number] Component Femoral Cruciate Retaining Beaded Left Size 4 Triathlon - [id number] Implanted:Qty: 1 on 11/09/2024 by Saqib Santos J.P., MD at [facility] Implant Left: Knee CHRISTIE [id number] 01/22/2029 5517-F-40 1 / / [id number] Baseplate Tritanium Size 4 Triathlon - [id number] Implanted:Qty: 1 on 11/09/2024 by Saqib Santos J.P., MD at [facility] Implant Left: Knee CHRISTIE [id number] 08/27/2029 5536-B-40 0 / / [id number] Patella Asymmetric Metal Backed Tritanium Size A32 [id number] Tritanium - [id number] Implanted:Qty: 1 on 11/09/2024 by Saqib Santos J.P., MD at [facility] Implant Left: Knee CHRISTIE [id number] 01/21/2029 5552-L-32 0 / / [id number] Tibial Bearing Insert Size 4 9mm Triathlon - [id number] Implanted:Qty: 1 on 11/09/2024 by Saqib Santos J.P., MD at [facility] Implant Left: Knee CHRISTIE [id number] 06/18/2029 5531-G-40 9-E / / [id number] Procedures * Due to [place] state law, this organization might not be sharing negative HIV tests. Procedure Name Priority Date/Time Associated Diagnosis Comments CBC AUTO DIFFERENTIAL Routine 11/10/2024 10:17 AM EST BASIC METABOLIC PANEL Routine 11/10/2024 10:17 AM EST XR KNEE 1 OR 2 VW LEFT Routine 11/09/2024 1:17 PM EST TISSUE EXAM Routine 11/09/2024 10:55 AM EST Primary osteoarthritis of left knee AL TOTAL KNEE ARTHROPLASTY 11/09/2024 9:44 AM EST Primary osteoarthritis of left knee Special Needs OSTEONICS/CHRISTIE AL AN PAIN BLOCK AT SURGEON REQUEST Routine 11/09/2024 9:40 AM EST AL AN PERIPHERAL BLOCK POST-OP PAIN Routine 11/09/2024 [...] Last 3 Months Results * Due to [place] state law, this organization might not be sharing negative HIV tests. * (ABNORMAL) CBC Auto Differential (11/10/2024 10:17 AM EST) [facility] WBC 10.2 3.8 - 10.8 10*3/uL 11/10/2024 11:23 AM EST [facility] RBC 3.78(L) 3.80 - 5.10 10*6/uL 11/10/2024 11:23 AM EST [facility] Hemoglobin 11.1(L) 11.7 - 15.5 g/dL 11/10/2024 11:23 AM EST [facility] Hematocrit 34.6(L) 35.0 - 45.0 % 11/10/2024 11:23 AM EST [facility] MCV 91.5 80.0 - 100.0 fL 11/10/2024 11:23 AM EST [facility] MCH 29.4 27.0 - 33.0 pg 11/10/2024 11:23 AM EST [facility] MCHC 32.1 32.0 - 36.0 g/dL 11/10/2024 11:23 AM EST [facility] RDW 14.0 11.0 - 15.0 % 11/10/2024 11:23 AM [facility] Platelets 183 140 - 400 10*3/uL 11/10/2024 11:23 AM [facility] MPV 9.6 7.5 - 12.5 fL 11/10/2024 11:23 AM [facility] Neutrophil % 87.7 % 11/10/2024 11:23 AM [facility] Immature Grans % 0.4 0.0 - 0.9 % 11/10/2024 11:23 AM [facility] Lymphocyte % 5.6 % 11/10/2024 11:23 AM [facility] Monocyte % 6.2 % 11/10/2024 11:23 AM [facility] Eosinophil % 0.0 % 11/10/2024 11:23 AM [facility] Basophil % 0.1 % 11/10/2024 11:23 AM [facility] Neutrophil # 8.90(H) 1.50 - 7.80 10*3/uL 11/10/2024 11:23 AM [facility] Immature Grans # 0.04(H) <=0.03 10*3/uL 11/10/2024 11:23 AM [facility] Lymphocyte # 0.60(L) 0.85 - 3.90 10*3/uL 11/10/2024 11:23 AM [facility] Monocyte # 0.60 0.20 - 0.95 10*3/uL 11/10/2024 11:23 AM [facility] Eosinophil # <0.03 0.02 - 0.50 10*3/uL 11/10/2024 11:23 AM [facility] Basophil # <0.03 0.00 - 0.20 10*3/uL 11/10/2024 11:23 AM EST [facility] nRBC % 0.0 /100 WBCs 11/10/2024 11:23 AM EST [facility] nRBC # <0.01 <0.01 10*3/uL 11/10/2024 11:23 AM EST [facility] Blood Structure of peripheral vein / Unknown Venipuncture / Unknown 11/10/2024 10:17 AM EST 11/10/2024 10:32 AM EST us Saqib Santos MD LAB BLOOD ORDERABLES Final R esult [facility] [address] [place] [address], * (ABNORMAL) Basic Metabolic Panel (11/10/2024 10:17 AM EST) Only the most recent of2 resultswithin the time period is included. NA 135 135 - 145 mmol/L 11/10/2024 11:10 AM EST [facility] K 4.7 3.5 - 5.3 mmol/L 11/10/2024 11:10 AM EST [facility] Cl 100 98 - 107 mmol/L 11/10/2024 11:10 AM EST [facility] CO2 25 22 - 32 mmol/L 11/10/2024 11:10 AM EST [facility] BUN 17 7 - 23 mg/dL 11/10/2024 11:10 AM EST [facility] Creatinine 1.13 0.50 - 1.20 mg/dL 11/10/2024 11:10 AM EST [facility] Glucose 256(H) 65 - 99 mg/dL 11/10/2024 11:10 AM EST [facility] Calcium 8.7 8.6 - 10.5 mg/dL 11/10/2024 11:10 AM EST [facility] Anion Gap 10 5 - 15 11/10/2024 11:10 AM EST [facility] eGFR 50(L) >=60 mL/min/1. 73m2 11/10/2024 11:10 AM EST [facility] Comment:The estimated glomer ular filtration [...] MD LAB BLOOD ORDERABLES Final R esult [facility] [address] [place] [address], [place] * X-Ray Knee Left 1 or [...] obtain the completed interpretation. ? Workstation ID: [id number] Narrative 11/09/2024 2:58 PM EST COMPARISON: ??06/04/2024. ?? FINDINGS AND Resulting Agency Comment [id number] Procedure Note Marlena Lakhani MD - 11/09/2024 [...] possible to obtain thecompleted interpretation. Workstation ID: [id number] us Saqib Santos MD IMG XR PROCEDURES Final Resu lt * Tissue Exam (11/09/2024 10:55 AM EST) Final Diagnosis Bone and Tissue, Left Knee: - Osteoarthritis with osteophyte formation and bony eburnation. [facility] 11/16/2024 12:54 PM EDT [facility] at 1254 EDT Clinical History Pre-op diagnosis: Primary osteoarthritis of left knee [M17.12] [facility] 11/16/2024 12:54 PM EDT [facility] Gross Description 1. [...] osteophyte formation. The margins are flat. A loan representative section is submitted in cassette 1A after fixation and decalcification. [facility] 11/16/2024 12:54 PM EDT [facility] Gross Description User Grossing complete by Patel Sutherland on 11/09/2024 3:23 PM [facility] 11/16/2024 12:54 PM EDT [facility] Embedded Images [facility] 11/16/2024 12:54 PM EDT [facility] Resulting Agency Case was signed out at [facility], Department of Pathology, [employer] 3 CLIA [id number] [facility] 11/16/2024 12:54 PM EDT [facility] Report Header Surgical Pathology Report ? Case: [id number] ? Authorizing Provider: ??Saqib Santos MD ? Collected: ? 11/09/2024 1055 ? Ordering Location: ? [facility] ?Received: ?11/09/2024 1308 ? [facility] ? Surgery ? Pathologist: ? Campos Saini MD ? Specimen: ?Knee, Left, LEFT KNEE BONE AND TISSUE ? 11/16/2024 12:54 PM EDT [facility] Bone Structure of left knee region / Unknown 11/09/2024 10:55 AM EST 11/09/2024 1:08 PM EST Comment:Pre-op diagnosis: Primary osteoarthritis of left knee [M17.12] us Saqib Santos MD LAB PATHOLOGY/CYTOLOGY ORDER DAREN Final Result [facility] [address] [place] [address], * AL AN PERIPHERAL BLOCK POST-OP PAIN, AL AN PAIN BLOCK AT SURGEON REQUEST (11/09/2024 [...] performed Peripheral Block Ultrasound #1 Probe: Linear [id number] Patient position: supine Prep: ChloraPrep Patient monitoring: [...] aureus (MRSA) isolated. 10/31/2024 5:56 AM EST [email or web address] Swab Nasal structure / Unknown Non-Blood Collection / Unknown 10/29/2024 2:13 PM EST 10/29/2024 2:13 PM EST Narrative [facility] - 10/31/2024 5:56 AM EST [facility] Received Date: MICRO NUMBER: [id number] SPECIMEN QUALITY: Adequate SOURCE: SWAB NOSE STATUS: FINAL Saqib Santos MD LAB MICROBIOLOGY - GENERAL O RDERABLES Final Result [facility] [address] [facility] [address], [place] [address], [place] [phone] [facility] [address], [place] [address], [place] [phone] * CBC (10/29/2024 2:04 PM EST) WBC 5.1 3.8 - 10.8 10*3/uL 10/29/2024 2:25 PM EST [facility] RBC 4.30 3.80 - 5.10 10*6/uL 10/29/2024 2:25 PM EST [facility] Hemoglobin 12.9 11.7 - 15.5 g/dL 10/29/2024 2:25 PM EST [facility] Hematocrit 40.0 35.0 - 45.0 % 10/29/2024 2:25 PM EST [facility] MCV 93.0 80.0 - 100.0 fL 10/29/2024 2:25 PM EST [facility] MCH 30.0 27.0 - 33.0 pg 10/29/2024 2:25 PM EST [facility] MCHC 32.3 32.0 - 36.0 g/dL 10/29/2024 2:25 PM EST [facility] RDW 13.9 11.0 - 15.0 % 10/29/2024 2:25 PM EST [facility] Platelets 277 140 - 400 10*3/uL 10/29/2024 2:25 PM EST [facility] MPV 9.2 7.5 - 12.5 fL 10/29/2024 2:25 PM EST [facility] Blood Structure of peripheral vein / Unknown Venipuncture / Unknown 10/29/2024 2:04 PM EST 10/29/2024 2:04 PM EST us Ashok Potter MD LAB BLOOD ORDERABLES Final Res ult [facility] [address] [place] [address], * Type and screen (10/29/2024 2:04 PM [...] Edited Result - Final Performing Organization Address City/State/[facility] Co de Phone Number [facility] [address] [place] [address], * X-Ray Knee Right 4+ Views (10/21/2024 11:30 AM EST) Anatomical Region Laterality Modality Lower Extremities, Knee Right Computed Radiography Saqib Santos MD IMG XR PROCEDURES Final Resu lt from Last 3 Months Insurance MEDICARE [facility] MEDICARE Member Subscriber Plan / Payer (Ef fective 2011-Present) Name:Lillian Copeland Member ID:[id number] Relation to Subscriber:Self Name:Lillian Copeland Subscriber ID:[id number] Payer ID:[id number] Group ID:Not on file Type:Not on file Address: [place] [phone] [facility] SUPP Advance Directives Documents on File Type Date Recorded Patient Credit Specialist Expl anation Health Care Proxy 07/02/2024 1:51 PM [facility] Health Care Proxy * Full Code (Latest Code Status on File) Date Activated Date Inactivated Comments 11/09/2024 12:05 PM 11/12/2024 6:25 PM * Full Code Date Activated Date Inactivated Comments 07/20/2024 12:55 PM 07/22/2024 3:45 PM Care Teams Deputy Sheriff Generalist Relationship Specialty Start Date End Date Chen Pop 1960 [place] [address] PCP - General Internal Medicine 05/01/24
--- OUTSIDE RECORDS SUMMARY | 2024-12-03 15:38 | XMS_ITS | Encounter Summary ---
Author Organization [facility] Address [address] [place] [address] Care Team Providers Care Implementation Consultant Name Role Phone Lorraine Popanna Primary Care Provider [phone] Encounter Details Date Type Department Care Team (Late st Contact Info) Description 11/30/2024 Telephone [facility] [address] [address] Saqib Santos J.P., MD [address] [place] [address] Social History Tobacco Use Types Packs/Day Years [...] AM EST documented as of this encounter Miscellaneous Notes * Telephone Encounter - Babita Dodge [place] - 11/30/2024 11:32 AM EDT Patient called, She is scheduled for a post op appointment this . She is requesting this bechanged to telehealth, because she [place] so far away. Please advise. Is it ok to change to telehealth? Pt phone [phone] documented in this encounter Plan of Treatment Upcoming Encounters Date Type Department Care Team (Late st Contact Info) Description 12/03/2024 3:45 PM EDT Telehealth CC [facility] [place] AT [address] [facility] [address] [place] [address] Saqib Santos J.P., MD [address] [place] [phone] documented as of this encounter Visit Diagnoses Not on filedocumented in this encounter Care Teams Implementation Consultant Relationship Specialty Start Date End Date Chen Pop [place] [address] PCP - General Internal Medicine 05/01/24 documented as of this encounter
--- OUTSIDE RECORDS SUMMARY | 2024-12-03 15:39 | XMS_ITS | Encounter Summary ---
Author Organization [facility] Address [address] [place] [address] Care Team Providers Care Stunner Name Role Phone Chen Pop Primary Care Provider Reason for Visit * Auth/Cert (Routine) Specialty Diagnoses / Procedures Referred By Contritchie t Referred To Contact Diagnoses Primary osteoarthritis of left knee Primary osteoarthritis of left knee [M17.12] Procedures ME TOTAL KNEE ARTHROPLASTY ARTHROPLASTY, KNEE, CONDYLE AND PLATEAU; MEDIAL AND LATERAL COMPARTMENTS WITH OR WITHOUT PATELLA RESURFACING (TOTAL KNEE ARTHROPLASTY) Saqib Santos J.P., MD [address] [place] [address] Phone: tel: fax: Referral ID Status Reason Start Date Expiration Date Visits Re quested Visits Authorized [id number] 10/22/2024 99 99 Encounter Details Date Type Department Care Team (Latest Contact Info) Description 11/09/2024 7:37 AM EST - 11/12/2024 4:10 PM [facility] Hospital Encounter [facility] [address] [place] [address] Saqib Santos J.P., MD [address] [place] [id number] Primary localized osteoarthritis of right knee [...] original note were not included. DISCHARGE SUMMARY [facility] DISCHARGE INFORMATION: Date and Time of Admission: 11/09/2024 12:05 PM Date of Discharge: 11/12/2024 DISCHARGE DIAGNOSIS: Problem List Active Problems * (Principal) Primary osteoarthritis of left knee ATTENDING PHYSICIAN ON DISCHARGE: Attending Provider: Saqib Santos MD [phone] FOLLOW-UPS AND SCHEDULED APPOINTMENTS: Future Appointments Date Time Provider Department Center 12/03/2024 1:15 PM Saqib Santos MD [id number] None PENDING LABS: . None DISCHARGE MEDICATIONS: [...] CLASSIC times two JOINT REPLACEMENT Right hip ME TOTAL KNEE ARTHROPLASTY Right 07/20/2024 Procedure: ARTHROPLASTY, KNEE, CONDYLE AND PLATEAU; MEDIAL AND LATERAL COMPARTMENTS WITH OR WITHOUTPATELLA RESURFACING (TOTAL KNEE ARTHROPLASTY); Surgeon: Saqib Santos MD; Location: [facility]; Service: Orthopedics ME TOTAL KNEE ARTHROPLASTY Left 11/09/2024 Procedure: ARTHROPLASTY, KNEE, CONDYLE AND PLATEAU; MEDIAL AND LATERAL COMPARTMENTS WITH OR WITHOUTPATELLA RESURFACING (TOTAL KNEE ARTHROPLASTY); Surgeon: Saqib Santos MD; Location: [facility]; Service: Orthopedics SALPINGOOPHORECTOMY Bilateral VARICOSE VEIN [...] about DERMABOND PRINEO System please our office ([phone]) Saqib Santos MD [facility] [address], [address] [address] [place], [address] [address] [place] [address] (Office) At Home Instructions, Total [...] you enter the car. 2. Have the compactor driver park on a flat surface and/or [...] have occurred. Lillian Copeland : 1945 CSN: [id number] Source Note - Saqib Santos MD - [...] created with voice recognition software. Occasional wrong-wordor heczg-z-xrcy substitutions may have occurred due to the inherent limitations of voice recognition software. Read the chart carefully and recognize, using context, where substitutions have occurred. documented in this encounter Miscellaneous Notes * Plan of Care - Jill Corea RN - 11/12/2024 3:58 PM EST Discharge patient per order Patient discharging to [facility]. VSS, A&Ox4, patient adequate for discharge. PIV removed. All patient belongings returned to patient. Patient medicated for pain for transport, see MAR. Patient transported by ambulance stretcher. * Plan of Care - Kenya Hendrickson - 11/12/2024 2:52 PM EST Case Management - Message received from [facility] reporting patient will need to bring her Ninlaro medication with her. Patient reports she is due to take this medication on 11/20 and her son will bring it in to facility if she is still there when it is due. [facility] updated via Rapid[employer]. * Plan of Care - Jill Corea RN - 11/12/2024 2:43 PM EST RN report called to accepting nurse at [facility] [phone] * Plan of Care - Kenya Hendrickson - 11/12/2024 2:34 PM EST Discharge Note: Pertinent Clinical and Medical Clearance: Patient cleared medically by to discharge to [facility]. Met with patient and spoke with her son Ethan on the phone. They are in agreement with plan. Final Discharge Plan: Discharge to [address] Handoff # [phone] provided to nursing via secure chat. 3. Transportation: [employer] arranged for stretcher transportation for next available. * Plan of Care - Aime De DEPARTMENT STORE SALESPERSON - 11/12/2024 12:18 PM EST Problem: Adult [...] reflux disease) Hiatal hernia Hypertension Multiple myeloma ([facility]) Past Surgical History: Procedure Laterality Date ANKLE FRACTURE SURGERY Left BREAST LUMPECTOMY Right times two CATARACT EXTRACTION W/ INTRAOCULAR LENS IMPLANT Bilateral SECTION, CLASSIC times two JOINT REPLACEMENT Right hip ME TOTAL KNEE ARTHROPLASTY Right 07/20/2024 Procedure: ARTHROPLASTY, KNEE, CONDYLE AND PLATEAU; MEDIAL AND LATERAL COMPARTMENTS WITH OR WITHOUTPATELLA RESURFACING (TOTAL KNEE ARTHROPLASTY); Surgeon: Saqib Santos MD; Location: [facility]; Service: Orthopedics ME TOTAL KNEE ARTHROPLASTY Left 11/09/2024 Procedure: ARTHROPLASTY, KNEE, CONDYLE AND PLATEAU; MEDIAL AND LATERAL COMPARTMENTS WITH OR WITHOUTPATELLA RESURFACING (TOTAL KNEE ARTHROPLASTY); Surgeon: Saqib Santos MD; Location: [facility]; Service: Orthopedics SALPINGOOPHORECTOMY Bilateral VARICOSE VEIN SURGERY Bilateral Treatment: Default Flowsheet Data (Last 12 Hours) Adult PT Evaluation/Treatment Row Name 11/12/24 1208 General Information Patient Profile Review yes General Observations of Patient supine in bed resting Row Name 11/12/24 1208 Bed Mobility Assessment/Treatment Assistive Device (Bed Mobility) hospital bed;bedrail Mfynyy-ba-Gbz Morrow (Bed Mobility) minimum assist (75% patient effort);verbal cues required;set up required;HOB elevated Safety Issues (Bed Mobility) decreased use of legs for bridging/pushing Impairments (Bed Mobility) pain;ROM (range of motion) decreased;strength decreased Row Name 11/12/24 1208 Transfer Assessment/Treatment Sit-Stand Morrow level (Transfers) contact guard assist;verbal cues required;set up required Stand-Sit Morrow level(Transfers) minimum assist (75% patient effort);verbal cues required;set up required Tvy-Caauj-Oof Assistive Device (Transfers) gait belt;walker, rolling Toilet Morrow Level (Transfers) minimum assist (75% patient effort);verbal [...] chair Row Name 11/12/24 1208 Gait Assessment/Treatment Morrow (Gait) contact guard assist;verbal cues required Assistive [...] (Therapeutic Exercise) supine Sets/Reps (Therapeutic Exercise) 10 [facility] Name 11/12/24 1208 Rehab Eval/Treat-Additional Details Document Type Therapy treatment note PT Treatment Received On 11/12/24 PT Goal Summary (all recorded) PT Rehab Goal Summary [facility] 11/09/24 1700 Physical Therapy Goals Bed Mobility Goal Selection (PT) bed mobility, PT goal 1 Transfer Goal Selection (PT) transfer, PT goal 1 Gait Training Goal Selection (PT) gait training, PT goal 1 Stairs Goal Selection (PT) stairs, PT goal 1 [facility] 11/09/24 17011/10/24 1200 11/10/24 1300 11/12/24 1200 Bed Mobility Goal 1 (PT) Activity (Bed Mobility Goal 1, PT) rolling to left;rolling to right;scooting;sit to supine/supine to sit -- -- -- Morrow Level/Cues Needed (Bed Mobility Goal 1, PT) independent -- -- -- Assitive Devices (Bed Mobility Goal 1, PT) none -- -- -- Time Frame (Bed Mobility Goal 1, PT) 2 days -- -- -- Outcomes (Bed Mobility Goal 1, PT) -- goal ongoing goal ongoing goal ongoing [facility] 11/09/24 17011/10/24 1200 11/10/24 1300 11/12/24 1200 Transfer Goal 1 (PT) Activity (Transfer Goal 1, PT) ggg-jk-gybuh/zabvz-ov-oyu;tsw-tg-pussc/qjfdf-sv-nmh -- -- -- Morrow Level/Cues Needed (Transfer Goal 1, PT) contact guard assist -- -- -- Assitive Devices (Transfer Goal 1, PT) walker, rolling -- -- -- Time Frame (Transfer Goal 1, PT) 2 days -- -- -- Outcome (Transfer Goal 1, PT) -- goal ongoing goal ongoing goal ongoing [facility] 11/09/24 1700 11/10/24 1200 11/10/24 1300 11/12/24 1200 Gait Training Goal 1 (PT) Activity (Gait Training Goal 1, PT) gait (walking locomotion);diminish gait deviation;forward stepping;improve balance and speed;increase endurance/gait distance;normalize weight shifts -- -- -- Morrow Level (Gait Training Goal 1, PT) contact [...] Goal 1, PT) ascending stairs;descending stairs;using handrail, left;mqgm-qn-shhg Morrow Level/Cues Needed (Stairs Goal 1, PT) supervision required Assistive Devices (Stairs Goal 1, PT) handrail;cane, straight Number of Stairs (Stairs Goal 1, PT) 4 Time Frame (Stairs Goal 1, PT) 3 days Row Name 11/09/24 170 [facility] Goal (PT) Statement (Retail Sales Merchandiser Goal, PT) Return to PLOF Morrow Level ([facility] Goal, PT) modified independence Time Frame ([facility] Goal, PT) 2 weeks Aime De PTA [...] CLASSIC times two JOINT REPLACEMENT Right hip ME TOTAL KNEE ARTHROPLASTY Right 07/20/2024 Procedure: ARTHROPLASTY, KNEE, CONDYLE AND PLATEAU; MEDIAL AND LATERAL COMPARTMENTS WITH OR WITHOUTPATELLA RESURFACING (TOTAL KNEE ARTHROPLASTY); Surgeon: Saqib Santos MD; Location: [facility]; Service: Orthopedics ME TOTAL KNEE ARTHROPLASTY Left 11/09/2024 Procedure: ARTHROPLASTY, KNEE, CONDYLE AND PLATEAU; MEDIAL AND LATERAL COMPARTMENTS WITH OR WITHOUTPATELLA RESURFACING (TOTAL KNEE ARTHROPLASTY); Surgeon: Saqib Santos MD; Location: [facility]; Service: Orthopedics SALPINGOOPHORECTOMY Bilateral VARICOSE VEIN SURGERY Bilateral Vitals Treatment: OT EVAL/TREAT (Last 12 Hours) Adult OT Eval/Treat Row Name 11/12/24 0820 Bed Mobility Assessment/Treatment Yky-sv-Uamnki Morrow (Bed Mobility) moderate assist (50% patient effort) Row Name 11/12/24 0820 Static Standing Balance Static Standing Position unsupported Static Standing Assistance Contact guard Static Standing Time (seconds) 15 seconds Row Name 11/12/24 0820 Transfer Assessment/Treatment Sit-Stand Morrow level (Transfers) minimum assist (75% patient effort) extra time, pt talks self through sequence Toilet Morrow Level (Transfers) contact guard assist extra time [...] (Transfer Goal 1, OT) toilet transfer -- Morrow Level (Transfer Goal 1, OT) supervision required -- Assitive Devices (Transfer Goal 1, OT) walker, rolling -- Time Frame (Transfer Goal 1, OT) 4 days -- Outcome (Transfer Goal 1, OT) -- goal ongoing Row Name 11/10/24 1400 11/11/24 1000 Dressing Goal 1 (OT) Activity (Dressing Goal 1, OT) lower body dressing -- Morrow Level (Dressing Goal 1, OT) supervision required -- Assistive Devices (Dressing Goal 1, OT) nail assembly machine operator;sock-aid -- Time Frame (Dressing Goal 1, OT) 4 days -- Outcomes (Dressing Goal 1, OT) -- goal ongoing Row Name 11/10/24139911/11/24 1000 Toileting Goal 1 (OT) Activity (Toileting Goal 1, OT) perform perineal hygiene;adjust/manage clothing -- Morrow Level (Toileting Goal 1, OT) supervision required -- Assistive Devices (Toileting Goal 1, OT) raised toilet seat;grab bar;walker, rolling -- Outcome (Toileting Goal 1, OT) -- goal ongoing Row Name 11/10/24 1400 [facility] Goal (OT) Statement ([facility] Goal, OT) return to home Dayan Ibarra OT Licensure: [place]: [id number] * Plan of Care - Kevin Dominguez [...] shortness of breath, no chest pain, occ medical staff manager dry cough. IS at bedside- pt able [...] have been offered. Her preferred facility - [facility] in [place] has clinically accepted her, butdid not have [...] a one story [place] style home in [facility], where she has 4 steps at the entrance. She has two sons who live in [place] and [place]. Son Ethan has requested to have search for rehab bed expanded further anywhere in the state. He is questioning why [facility] in [place] was able to clinically accept pt while other acute facilities were not. Again, CM explained the above stated. He states that pt went there before when she had the exact same surgical procedure on the other side, and is adamant that if pt was accepted then, she should be accepted at rehab now. - Again, [facility], where pt was then, accepted but does not forsee an available acute rehab bed any time soon. CM expanded search through out the state to other [facility] facilities, as requested by pt and son. [...] - 11/11/2024 4:17 PM EST Care assumed [id number]. Pt AOX 4. 1 A OOB to [...] CLASSIC times two JOINT REPLACEMENT Right hip ME TOTAL KNEE ARTHROPLASTY Right 07/20/2024 Procedure: ARTHROPLASTY, KNEE, CONDYLE AND PLATEAU; MEDIAL AND LATERAL COMPARTMENTS WITH OR WITHOUTPATELLA RESURFACING (TOTAL KNEE ARTHROPLASTY); Surgeon: Saqib Santos MD; Location: [facility]; Service: Orthopedics ME TOTAL KNEE ARTHROPLASTY Left 11/09/2024 Procedure: ARTHROPLASTY, KNEE, CONDYLE AND PLATEAU; MEDIAL AND LATERAL COMPARTMENTS WITH OR WITHOUTPATELLA RESURFACING (TOTAL KNEE ARTHROPLASTY); Surgeon: Saqib Santos MD; Location: [facility]; Service: Orthopedics SALPINGOOPHORECTOMY Bilateral VARICOSE VEIN SURGERY Bilateral Treatment: Default Flowsheet Data (Last 12 Hours) Adult PT Evaluation/Treatment Row Name 11/11/24 3295 General Information Patient Profile Review yes General [...] Row Name 11/11/24 1015 Bed Mobility Assessment/Treatment Buw-vz-Wumesx Morrow (Bed Mobility) minimum assist (75% patient effort);verbal cues required;nonverbal cues required (demo/gesture) Impairments (Bed Mobility) strength decreased;ROM (range of motion) decreased;pain Row Name 11/11/24 1435 Transfer Assessment/Treatment Comment (Transfers) pt declined OOB [facility] Name 11/11/24 1015 Transfer Assessment/Treatment Sit-Stand Morrow level (Transfers) minimum assist (75% patient effort);verbal cues required Stand-Sit Morrow level(Transfers) minimum assist (75% patient effort);verbal cues required Ywg-Nmxcr-Iru Assistive Device (Transfers) walker, rolling;gait belt Maintain Weight Bearing Status (Transfers) able to maintain weight bearing status Safety Issues (Transfers) step length decreased;weight-shifting ability decreased;balance decreasedduring turns Impairments (Transfers) strength decreased;ROM (range of motion) decreased;pain Row Name 11/11/24 1015 Gait Assessment/Treatment Morrow (Gait) contact guard assist;verbal cues required Assistive [...] right;scooting;sit to supine/supine to sit -- -- Morrow Level/Cues Needed (Bed Mobility Goal 1, PT) independent -- -- Assitive Devices (Bed Mobility Goal 1, PT) none -- -- Time Frame (Bed Mobility Goal 1, PT) 2 days -- -- Outcomes (Bed Mobility Goal 1, PT) -- goal ongoing goal ongoing Row Name 11/09/24 1700 11/10/24 1200 11/10/24 1300 Transfer Goal 1 (PT) Activity (Transfer Goal 1, PT) uth-yo-qvllw/beffq-dm-uyp;ygu-wm-swhrd/lzrpv-wv-hrr -- -- Morrow Level/Cues Needed (Transfer Goal 1, PT) contact [...] speed;increase endurance/gait distance;normalize weight shifts -- -- Morrow Level (Gait Training Goal 1, PT) contact [...] Goal 1, PT) ascending stairs;descending stairs;using handrail, left;ieqx-su-edni Morrow Level/Cues Needed (Stairs Goal 1, PT) supervision required Assistive Devices (Stairs Goal 1, PT) handrail;cane, straight Number of Stairs (Stairs Goal 1, PT) 4 Time Frame (Stairs Goal 1, PT) 3 days Row Name 11/09/24 1700 [facility] Goal (PT) Statement ([facility] Goal, PT) Return to PLOF Morrow Level (Retail Sales Merchandiser Goal, PT) modified independence Time Frame (Retail Sales Merchandiser Goal, PT) 2 weeks Aime De PTA Licensure: DEPARTMENT STORE SALESPERSON, [place]: 3804 * Plan of Care - [...] CLASSIC times two JOINT REPLACEMENT Right hip ME TOTAL KNEE ARTHROPLASTY Right 07/20/2024 Procedure: ARTHROPLASTY, KNEE, CONDYLE AND PLATEAU; MEDIAL AND LATERAL COMPARTMENTS WITH OR WITHOUTPATELLA RESURFACING (TOTAL KNEE ARTHROPLASTY); Surgeon: Saqib Santos MD; Location: [facility]; Service: Orthopedics ME TOTAL KNEE ARTHROPLASTY Left 11/09/2024 Procedure: ARTHROPLASTY, KNEE, CONDYLE AND PLATEAU; MEDIAL AND LATERAL COMPARTMENTS WITH OR WITHOUTPATELLA RESURFACING (TOTAL KNEE ARTHROPLASTY); Surgeon: Saqib Santos MD; Location: [facility]; Service: Orthopedics SALPINGOOPHORECTOMY Bilateral VARICOSE [...] Row Name 11/11/24 1015 Bed Mobility Assessment/Treatment Fui-ev-Qhstws Morrow (Bed Mobility) minimum assist (75% patient effort);verbal cues required;nonverbal cues required (demo/gesture) Impairments (Bed Mobility) strength decreased;ROM (range of motion) decreased;pain Row Name 11/11/24 1015 Transfer Assessment/Treatment Sit-Stand Morrow level (Transfers) minimum assist (75% patient effort);verbal cues required Stand-Sit Morrow level(Transfers) minimum assist (75% patient effort);verbal cues required Tho-Tpjpv-Zav Assistive Device (Transfers) walker, rolling;gait belt Maintain Weight Bearing Status (Transfers) able to maintain weight bearing status Safety Issues (Transfers) step length decreased;weight-shifting ability decreased;balance decreasedduring turns Impairments (Transfers) strength decreased;ROM (range of motion) decreased;pain Row Name 11/11/24 1015 Gait Assessment/Treatment Morrow (Gait) contact guard assist;verbal cues required Assistive [...] right;scooting;sit to supine/supine to sit -- -- Morrow Level/Cues Needed (Bed Mobility Goal 1, PT) independent -- -- Assitive Devices (Bed Mobility Goal 1, PT) none -- -- Time Frame (Bed Mobility Goal 1, PT) 2 days -- -- Outcomes (Bed Mobility Goal 1, PT) -- goal ongoing goal ongoing Row Name 11/09/24 17011/10/24 1200 11/10/24 1300 Transfer Goal 1 (PT) Activity (Transfer Goal 1, PT) dhs-pd-uiwyp/tbhnb-qp-vjb;vcu-cj-vnhah/vbqiv-aw-rxz -- -- Morrow Level/Cues Needed (Transfer Goal 1, PT) contact [...] speed;increase endurance/gait distance;normalize weight shifts -- -- Morrow Level (Gait Training Goal 1, PT) contact [...] Goal 1, PT) ascending stairs;descending stairs;using handrail, left;btjn-ym-asha Morrow Level/Cues Needed (Stairs Goal 1, PT) supervision required Assistive Devices (Stairs Goal 1, PT) handrail;cane, straight Number of Stairs (Stairs Goal 1, PT) 4 Time Frame (Stairs Goal 1, PT) 3 days Row Name 11/09/24 1700 Retail Sales Merchandiser Goal (PT) Statement (Retail Sales Merchandiser Goal, PT) Return to PLOF Morrow Level ([facility] Goal, PT) modified independence Time Frame (Retail Sales Merchandiser Goal, PT) 2 weeks Chelsea Fagan PTA Licensure: DEPARTMENT STORE SALESPERSON, [place]: [id number] * Plan of Care - [...] Max A LBB/D. Education/training in use of nail assembly machine operator for donning clean undergarment over feet. Pt [...] CLASSIC times two JOINT REPLACEMENT Right hip ME TOTAL KNEE ARTHROPLASTY Right 07/20/2024 Procedure: ARTHROPLASTY, KNEE, CONDYLE AND PLATEAU; MEDIAL AND LATERAL COMPARTMENTS WITH OR WITHOUTPATELLA RESURFACING (TOTAL KNEE ARTHROPLASTY); Surgeon: Saqib Santos MD; Location: [facility]; Service: Orthopedics ME TOTAL KNEE ARTHROPLASTY Left 11/09/2024 Procedure: ARTHROPLASTY, KNEE, CONDYLE AND PLATEAU; MEDIAL AND LATERAL COMPARTMENTS WITH OR WITHOUTPATELLA RESURFACING (TOTAL KNEE ARTHROPLASTY); Surgeon: Saqib Santos MD; Location: [facility]; Service: Orthopedics SALPINGOOPHORECTOMY Bilateral VARICOSE VEIN [...] Row Name 11/11/24 09 Bed Mobility Assessment/Treatment Jmdfek-vs-Vof Morrow (Bed Mobility) minimum assist (75% patient effort);HOB elevated Row Name 11/11/24914 Transfer Assessment/Treatment Sit-Stand Morrow level (Transfers) minimum assist (75% patient effort);other (see comments) height of bed raised approx. 20 inches from floor Bed-Chair Morrow level (Transfers) contact guard assist Row Name 11/11/24914 Grooming Assessment/Training Position (Grooming) sitting Morrow Level (Grooming) set up required [facility] Name 11/11/24914 Bathing Assessment/Training Position (Bathing) sitting Morrow Level (Bathing) moderate assist (50% patient effort) Impairments (Bathing) ROM (range of motion) decreased;pain Row Name 11/11/24914 Upper Body Dressing Assessment/Training Position (UB Dressing) sitting Morrow Level (UB Dressing) set up required [facility] Name 11/11/24914 Lower Body Dressing Assessment/Training Assistive Devices (LB Dressing) nail assembly machine operator Position (LB Dressing) standing;sitting Morrow Level (LB Dressing) maximum assist (25% patient effort) Impairments (LB Dressing) pain;ROM (range of motion) decreased [facility] Name 11/11/24914 Rehab Eval/Treat-Additional Details Document Type Therapy treatment note OT Treatment Received On 11/11/24 Patient Effort good Symptoms Noted During/After Treatment increased pain;other (see comments) nausea OT Goal Summary (all recorded) OT Goal Summary [facility] Name 11/10/24 1400 Occupational Therapy Goals Transfer Goal Selection (OT) transfer, OT goal 1 Dressing Goal Selection (OT) dressing, OT goal 1 Toileting Goal Selection (OT) toileting, OT goal 1 Row Name 11/10/24 1400 11/11/24 1000 Transfer Goal 1 (OT) Activity (Transfer Goal 1, OT) toilet transfer -- Morrow Level (Transfer Goal 1, OT) supervision required -- Assitive Devices (Transfer Goal 1, OT) walker, rolling -- Time Frame (Transfer Goal 1, OT) 4 days -- Outcome (Transfer Goal 1, OT) -- goal ongoing Row Name 11/10/24 1400 11/11/24 1000 Dressing Goal 1 (OT) Activity (Dressing Goal 1, OT) lower body dressing -- Morrow Level (Dressing Goal 1, OT) supervision required -- Assistive Devices (Dressing Goal 1, OT) nail assembly machine operator;sock-aid -- Time Frame (Dressing Goal 1, OT) 4 days -- Outcomes (Dressing Goal 1, OT) -- goal ongoing Row Name 11/10/24 1400 11/11/24 1000 Toileting Goal 1 (OT) Activity (Toileting Goal 1, OT) perform perineal hygiene;adjust/manage clothing -- Morrow Level (Toileting Goal 1, OT) supervision required -- Assistive Devices (Toileting Goal 1, OT) raised toilet seat;grab bar;walker, rolling -- Outcome (Toileting Goal 1, OT) -- goal ongoing Row Name 11/10/24 1400 Retail Sales Merchandiser Goal (OT) Statement ([facility] Goal, OT) return to home Dayan Ibarra OT Licensure: OT, [place]: [id number] * Plan of Care - Jordyn Fitzgerald RN - 11/11/2024 8:59 AM EST Assumed care of patient from [id number], AxOx4, RA, 1A w/RW for mobility and [...] RN - 11/11/2024 12:58 AM EST POD#1-2 [id number] Assumed care of patient @ 1900. Patient [...] 2:31 PM EST Cm spoke with [facility] [phone] and they do not have a bed [...] Plan of Care Review Flowsheets (Taken 11/10/2024 4805) Plan of Care Reviewed With: patient Comments:77 [...] Plan of Care Review Flowsheets (Taken 11/10/2024 3516) Plan of Care Reviewed With: patient Patient [...] CLASSIC times two JOINT REPLACEMENT Right hip ME TOTAL KNEE ARTHROPLASTY Right 07/20/2024 Procedure: ARTHROPLASTY, KNEE, CONDYLE AND PLATEAU; MEDIAL AND LATERAL COMPARTMENTS WITH OR WITHOUTPATELLA RESURFACING (TOTAL KNEE ARTHROPLASTY); Surgeon: Saqib Santos MD; Location: [facility]; Service: Orthopedics ME TOTAL KNEE ARTHROPLASTY Left 11/09/2024 Procedure: ARTHROPLASTY, KNEE, CONDYLE AND PLATEAU; MEDIAL AND LATERAL COMPARTMENTS WITH OR WITHOUTPATELLA RESURFACING (TOTAL KNEE ARTHROPLASTY); Surgeon: Saqib Santos MD; Location: [facility]; Service: Orthopedics SALPINGOOPHORECTOMY Bilateral VARICOSE VEIN SURGERY Bilateral Vitals Assessment: OT EVAL/TREAT (Last 12 Hours) Adult OT Eval/Treat Row Name 11/10/24 0873 General Information Patient Profile Review yes Onset [...] home ADL Aids (row);Ambulation (row) ADL Aids nail assembly machine operator;sock aid Ambulation cane - straight;walker - rolling [...] small dog Row Name 11/10/24 0845 IADLs DEPARTMENT STORE SALESPERSON Meal Plan/Prep primary Shopping primary Money Management primary Medical/Medication Management primary Transportation primary drives Row Name 11/10/24 0845 IADLs Current Meal Plan/Prep impaired Principal Data Architect impaired Transportation impaired Row Name 11/10/24 0845 [...] Row Name 11/10/24 0845 Transfer Assessment/Treatment Sit-Stand Morrow level (Transfers) minimum assist (75% patient effort) Stand-Sit [place]row level(Transfers) minimum assist (75% patient effort) Rku-Hsvxo-Xaf Assistive Device (Transfers) walker, rolling Chair-Bed Morrow level (Transfers) minimum assist (75% patient effort) Itt-Brotr-Ofs Assistive Device (Transfers) walker, rolling Toilet Morrow Level (Transfers) minimum assist (75% patient effort) Row Name 11/10/24 0845 Mobility Assessment/Training Additional Documentation -- ADL mobility with RW indoor/room surface 9 ft with 1 turn, min A and verbal cues. Pt noted to limit L knee flexion, hiking hip when stepping forward Row Name 11/10/24 0845 Upper Body Dressing Assessment/Training Morrow Level (UB Dressing) set up required Row Name 11/10/24 0845 Lower Body Dressing Assessment/Training Morrow Level (LB Dressing) maximum assist (25% patient effort) Row Name 11/10/24 0845 Toileting Assessment/Training Morrow Level (Toileting) moderate assist (50% patient effort) [...] Activity (Transfer Goal 1, OT) toilet transfer Morrow Level (Transfer Goal 1, OT) supervision required Assitive Devices (Transfer Goal 1, OT) walker, rolling Time Frame (Transfer Goal 1, OT) 4 days Row Name 11/10/24 1400 Dressing Goal 1 (OT) Activity (Dressing Goal 1, OT) lower body dressing Morrow Level (Dressing Goal 1, OT) supervision required Assistive Devices (Dressing Goal 1, OT) nail assembly machine operator;sock-aid Time Frame (Dressing Goal 1, OT) 4 days Row Name 11/10/24 1400 Toileting Goal 1 (OT) Activity (Toileting Goal 1, OT) perform perineal hygiene;adjust/manage clothing Morrow Level (Toileting Goal 1, OT) supervision required Assistive Devices (Toileting Goal 1, OT) raised toilet seat;grab bar;walker, rolling Row Name 11/10/24 1400 Retail Sales Merchandiser Goal (OT) Statement ([facility] Goal, OT) return to home Dayan Ibarra OT Licensure: [place], [place]: [id number] * Plan of Care - Babita Lawrence [...] for correction of same Anxiety Cancer (CMS/HCC) ([facility]) right breast Depression GERD (gastroesophageal reflux disease) Hiatal hernia Hypertension Multiple myeloma ([facility]) Past Surgical History: Procedure Laterality Date ANKLE FRACTURE SURGERY Left BREAST LUMPECTOMY Right times two CATARACT EXTRACTION W/ INTRAOCULAR LENS IMPLANT Bilateral SECTION, CLASSIC times two JOINT REPLACEMENT Right hip ME TOTAL KNEE ARTHROPLASTY Right 07/20/2024 Procedure: ARTHROPLASTY, KNEE, CONDYLE AND PLATEAU; MEDIAL AND LATERAL COMPARTMENTS WITH OR WITHOUTPATELLA RESURFACING (TOTAL KNEE ARTHROPLASTY); Surgeon: Saqib Santos MD; Location: [facility]; Service: Orthopedics ME TOTAL KNEE ARTHROPLASTY Left 11/09/2024 Procedure: ARTHROPLASTY, KNEE, CONDYLE AND PLATEAU; MEDIAL AND LATERAL COMPARTMENTS WITH OR WITHOUTPATELLA RESURFACING (TOTAL KNEE ARTHROPLASTY); Surgeon: Saqib Santos MD; Location: [facility] OR; Service: Orthopedics SALPINGOOPHORECTOMY Bilateral VARICOSE [...] Assistive Device (Bed Mobility) bedrail;draw sheet Scoot/Bridge Morrow (Bed Mobility) minimum assist (75% patient effort) Jcrwqk-ct-Gqu Morrow (Bed Mobility) minimum assist (75% patient effort) Row Name 11/10/241329 Transfer Assessment/Treatment Sit-Stand Morrow level (Transfers) minimum assist (75% patient effort) Stand-Sit Morrow level(Transfers) minimum assist (75% patient effort);verbal cues required Oup-Qkzgf-Tdc Assistive Device (Transfers) gait belt;walker, rolling Bed-Chair Morrow level (Transfers) minimum assist (75% patient effort);verbal cues required Toilet Morrow Level (Transfers) minimum assist (75% patient effort);verbal cues required Toilet Transfer Type stand step Row Name 11/10/24 09 Transfer Assessment/Treatment Sit-Stand Morrow level (Transfers) minimum assist (75% patient effort);verbal cues required Stand-Sit Morrow level(Transfers) minimum assist (75% patient effort) Gxc-Wzhep-Lmj Assistive Device (Transfers) walker, rolling;gait belt Row Name 11/10/24 217 Gait Assessment/Treatment Morrow (Gait) contact guard assist;verbal cues required;set up required Assistive Device (Gait) walker, rolling;gait belt Distance in Feet (Gait) 2x 15 feet Gait Pattern Analysis 3-point gait Gait Deviations jf, decreased;flexed knee, left;foot flat, left;stance time, decreased, left Row Name 11/10/24 0905 Gait Assessment/Treatment Morrow (Gait) contact guard assist;verbal cues required Assistive [...] right;scooting;sit to supine/supine to sit -- -- Morrow Level/Cues Needed (Bed Mobility Goal 1, PT) independent -- -- Assitive Devices (Bed Mobility Goal 1, PT) none -- -- Time Frame (Bed Mobility Goal 1, PT) 2 days -- -- Outcomes (Bed Mobility Goal 1, PT) -- goal ongoing goal ongoing Row Name 11/09/24 17011/10/24 1200 11/10/24 1300 Transfer Goal 1 (PT) Activity (Transfer Goal 1, PT) pxf-sr-vyvmu/tihfc-ty-xjw;xku-db-lkibp/lobgr-zd-ugp -- -- Morrow Level/Cues Needed (Transfer Goal 1, PT) contact [...] speed;increase endurance/gait distance;normalize weight shifts -- -- Morrow Level (Gait Training Goal 1, PT) contact [...] Goal 1, PT) ascending stairs;descending stairs;using handrail, left;fdxu-cy-xypo Morrow Level/Cues Needed (Stairs Goal 1, PT) supervision required Assistive Devices (Stairs Goal 1, PT) handrail;cane, straight Number of Stairs (Stairs Goal 1, PT) 4 Time Frame (Stairs Goal 1, PT) 3 days Row Name 11/09/24 1700 [facility] Goal (PT) Statement (Retail Sales Merchandiser Goal, PT) Return to PLOF Morrow Level (Retail Sales Merchandiser Goal, PT) modified independence Time Frame (Retail Sales Merchandiser Goal, PT) 2 weeks Babita Lawrence PTA [...] CLASSIC times two JOINT REPLACEMENT Right hip ME TOTAL KNEE ARTHROPLASTY Right 07/20/2024 Procedure: ARTHROPLASTY, KNEE, CONDYLE AND PLATEAU; MEDIAL AND LATERAL COMPARTMENTS WITH OR WITHOUTPATELLA RESURFACING (TOTAL KNEE ARTHROPLASTY); Surgeon: Saqib Santos MD; Location: [facility] OR; Service: Orthopedics ME TOTAL KNEE ARTHROPLASTY Left 11/09/2024 Procedure: ARTHROPLASTY, KNEE, CONDYLE AND PLATEAU; MEDIAL AND LATERAL COMPARTMENTS WITH OR WITHOUTPATELLA RESURFACING (TOTAL KNEE ARTHROPLASTY); Surgeon: Saqib Santos MD; Location: [facility] OR; Service: Orthopedics SALPINGOOPHORECTOMY Bilateral VARICOSE [...] Row Name 11/10/24 09 Transfer Assessment/Treatment Sit-Stand Morrow level (Transfers) minimum assist (75% patient effort);verbal cues required Stand-Sit Morrow level(Transfers) minimum assist (75% patient effort) Tvf-Ocjcw-Wrw Assistive Device (Transfers) walker, rolling;gait belt Row Name 11/10/24 09 Gait Assessment/Treatment Morrow (Gait) contact guard assist;verbal cues required Assistive [...] Review Plan of Care Reviewed With parent [facility] Name 11/10/24 09 PT Eval/ Treat- Additional Details Document Type Therapy treatment note PT Treatment Received On 11/10/24 Patient Effort good Symptoms Noted During/After Treatment increased pain PT Goal Summary (all recorded) PT Rehab Goal Summary [facility] 11/09/24 1700 Physical Therapy Goals Bed Mobility Goal Selection (PT) bed mobility, PT goal 1 Transfer Goal Selection (PT) transfer, PT goal 1 Gait Training Goal Selection (PT) gait training, PT goal 1 Stairs Goal Selection (PT) stairs, PT goal 1 [facility] Name 11/09/24 17011/10/24 1200 Bed Mobility Goal 1 (PT) Activity (Bed Mobility Goal 1, PT) rolling to left;rolling to right;scooting;sit to supine/supine to sit -- Morrow Level/Cues Needed (Bed Mobility Goal 1, PT) independent -- Assitive Devices (Bed Mobility Goal 1, PT) none -- Time Frame (Bed Mobility Goal 1, PT) 2 days -- Outcomes (Bed Mobility Goal 1, PT) -- goal ongoing [facility] Name 11/09/24 17011/10/24 1200 Transfer Goal 1 (PT) Activity (Transfer Goal 1, PT) wjt-if-hgabj/knidr-nt-qfp;pgx-kj-ljznz/pjlhv-yi-mhy -- Morrow Level/Cues Needed (Transfer Goal 1, PT) contact guard assist -- Assitive Devices (Transfer Goal 1, PT) walker, rolling -- Time Frame (Transfer Goal 1, PT) 2 days -- Outcome (Transfer Goal 1, PT) -- goal ongoing [facility] Name 11/09/24 17011/10/24 1200 Gait Training Goal 1 (PT) Activity (Gait Training Goal 1, PT) gait (walking locomotion);diminish gait deviation;forward stepping;improve balance and speed;increase endurance/gait distance;normalize weight shifts -- Morrow Level (Gait Training Goal 1, PT) contact [...] Goal 1, PT) ascending stairs;descending stairs;using handrail, left;afgv-lz-pwez Morrow Level/Cues Needed (Stairs Goal 1, PT) supervision required Assistive Devices (Stairs Goal 1, PT) handrail;cane, straight Number of Stairs (Stairs Goal 1, PT) 4 Time Frame (Stairs Goal 1, PT) 3 days Row Name 11/09/24 1700 [facility] Goal (PT) Statement ([facility] Goal, PT) Return to PLOF Morrow Level (Retail Sales Merchandiser Goal, PT) modified independence Time Frame (Retail Sales Merchandiser Goal, PT) 2 weeks Babita Lawrence PTA [...] in. She has been to Rehab at [facility] in [place] and wasfollowed by Rubina Carey 3. Supports, [...] documented in the EMR, in accordance with [facility] CPT code standards. Level of complexity [...] CLASSIC times two JOINT REPLACEMENT Right hip ME TOTAL KNEE ARTHROPLASTY Right 07/20/2024 Procedure: ARTHROPLASTY, KNEE, CONDYLE AND PLATEAU; MEDIAL AND LATERAL COMPARTMENTS WITH OR WITHOUTPATELLA RESURFACING (TOTAL KNEE ARTHROPLASTY); Surgeon: Saqib Santos MD; Location: [facility]; Service: Orthopedics SALPINGOOPHORECTOMY Bilateral VARICOSE VEIN [...] Name 11/09/24 170 Bed Mobility Assessment/Treatment Scoot/Bridge Morrow (Bed Mobility) supervision required Kztdkw-xu-Zan Morrow (Bed Mobility) supervision required Impairments (Bed Mobility) pain;ROM (range of motion) decreased;strength decreased Comment (Bed Mobility) pt reports more pain R knee than [facility] 11/09/241699 Static Sitting Balance Static Sitting Position sitting, edge of bed Static Sitting Assistance Modified independence Static Sitting Balance Strategies Effective [facility] 11/09/24 170 Static Standing Balance Static Standing Position supported Static Standing Assistance Contact guard Static Standing Extremity Support Bilateral lower extremities;Bilateral upper extremities Static Standing Base Normal base Static Standing Balance Strategies Effective Static Standing Assistive Devices walker, rolling;gait belt [facility] 11/09/241699 Transfer Assessment/Treatment Sit-Stand [place]row level (Transfers) contact guard assist;verbal cues required;nonverbal cues required (demo/gesture) Stand-Sit Morrow level(Transfers) contact guard assist;verbal cues required;nonverbal cues required (demo/gesture) Okd-Hfakh-Fbo Assistive Device (Transfers) walker, rolling;gait belt Bed-Chair Morrow level (Transfers) not tested pt asking to return to bed Maintain Weight Bearing Status (Transfers) able to maintain weight bearing status Impairments (Transfers) pain;ROM (range of motion) decreased;strength decreased [facility] 11/09/241699 Gait Assessment/Treatment Morrow (Gait) contact guard assist;verbal cues required Assistive Device (Gait) walker, rolling;gait belt Distance in Feet (Gait) 15 x 2 Gait Deviations jf, decreased;step length, decreased Maintain Weight Bearing Status (Gait) able to maintain weight bearing status Safety Issues (Gait) sequencing ability decreased Impairments (Gait) pain;ROM (range of motion) decreased;strength decreased Comment (Gait) requires intermittent cueing for sequencing [facility] 11/09/241699 Therapeutic Exercise Lower Extremity Therapeutic Exercise and ROM ankle pumps, left;ankle pumps, right;gluteal sets;heelslides, left;heel slides, right;knee flexion-extension, left;knee flexion-extension, right;quad sets, left Exercise Type (Therapeutic Exercise) AAROM (active assistive range of motion);AROM (active range ofmotion);isometric contraction, static Position (Therapeutic Exercise) supine Sets/Reps (Therapeutic Exercise) 10 [facility] 11/09/241699 IP AM-PAC BASIC MOBILITY (Without Stair [...] left;rolling to right;scooting;sit to supine/supine to sit Morrow Level/Cues Needed (Bed Mobility Goal 1, PT) independent Assitive Devices (Bed Mobility Goal 1, PT) none Time Frame (Bed Mobility Goal 1, PT) 2 days Row Name 11/09/24 170 Transfer Goal 1 (PT) Activity (Transfer Goal 1, PT) bwj-ny-vibpt/bvfwc-gi-zqe;dmv-wd-phlgb/vlblg-nv-ebv Morrow Level/Cues Needed (Transfer Goal 1, PT) contact guard assist Assitive Devices (Transfer Goal 1, PT) walker, rolling Time Frame (Transfer Goal 1, PT) 2 days Row Name 11/09/24 1700 Gait Training Goal 1 (PT) Activity (Gait Training Goal 1, PT) gait (walking locomotion);diminish gait deviation;forward stepping;improve balance and speed;increase endurance/gait distance;normalize weight shifts Morrow Level (Gait Training Goal 1, PT) contact guard assist Assistive Devices (Gait Training Goal 1, PT) walker, rolling;gait belt Distance (Gait Goal 1, PT) 100 ft Time Frame (Gait Training Goal 1, PT) 3 days Row Name 11/09/24 1700 Stairs Goal 1 (PT) Activity (Stairs Goal 1, PT) ascending stairs;descending stairs;using handrail, left;qalm-nu-fpdo Morrow Level/Cues Needed (Stairs Goal 1, PT) supervision required Assistive Devices (Stairs Goal 1, PT) handrail;cane, straight Number of Stairs (Stairs Goal 1, PT) 4 Time Frame (Stairs Goal 1, PT) 3 days Row Name 11/09/24 1700 Retail Sales Merchandiser Goal (PT) Statement (Retail Sales Merchandiser Goal, PT) Return to PLOF Morrow Level ([facility] Goal, PT) modified independence Time Frame (Retail Sales Merchandiser Goal, PT) 2 weeks Maliha Banuelos, PT Licensure: [place]: [id number] * Plan of Care - Janeth Elizabeth [...] : 1945 Operative Date: 11/09/2024 Medical Record: [id number] Preop Diagnosis: 1. 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 Arthroplasty, Knee, Condyle & Plateau; Medial & Lateral Compartments (70915) 2. Manipulation of Knee Joint under General Anesthesia (Includes Application of Traction or Other Fixation Devices) (17501) Surgeon: Saqib Santos M.D. Elderly Caregiver: Anesthesia: Spinal with Regional Block Indications: 78y/o [...] of the femur by using the universal compactor driver. We found the location for the IM drill hole approximate 1 cm anteriorto the femoral attachment of the posterior cruciate ligament is slightly medial to the midline of the distal femur. We then attached the T-handled compactor driver to the 516s IM devni and inserted the devin into the femoral [...] 3:45 PM EDT Telehealth [facility] AT [address] [facility] [address] [place] [address] Saqib Santos J.P., MD [address] [place] [id number] documented as of this encounter Procedures * Due to [place] [employer] law, this organization might not be sharing negative HIV tests. Procedure Name Priority Date/Time Associated Diagnosis Comments CBC AUTO DIFFERENTIAL Routine 11/10/2024 10:17 AM EST BASIC METABOLIC PANEL Routine 11/10/2024 10:17 AM EST XR KNEE 1 OR 2 VW LEFT Routine 11/09/2024 1:17 PM EST TISSUE EXAM Routine 11/09/2024 10:55 AM EST Primary osteoarthritis of left knee ME TOTAL KNEE ARTHROPLASTY 11/09/2024 9:44 AM EST Primary osteoarthritis of left knee Special Needs OSTEONICS/CHRISTIE documented in this encounter Results * Due to [place] [employer] law, this organization might not be sharing negative HIV tests. * (ABNORMAL) CBC Auto Differential (11/10/2024 10:17 AM EST) WBC 10.2 3.8 - 10.8 10*3/uL 11/10/2024 11:23 AM EST [facility] RBC 3.78(L) 3.80 - 5.10 10*6/uL 11/10/2024 11:23 AM EST [facility] Hemoglobin 11.1(L) 11.7 - 15.5 g/dL 11/10/2024 11:23 AM EST [facility] Hematocrit 34.6(L) 35.0 - 45.0 % 11/10/2024 11:23 AM EST [facility] MCV 91.5 80.0 - 100.0 fL 11/10/2024 11:23 AM EST [facility] MCH 29.4 27.0 - 33.0 pg 11/10/2024 11:23 AM EST [facility] MCHC 32.1 32.0 - 36.0 g/dL 11/10/2024 11:23 AM EST [facility] RDW 14.0 11.0 - 15.0 % 11/10/2024 11:23 AM EST [facility] Platelets 183 140 - 400 10*3/uL 11/10/2024 11:23 AM EST [facility] MPV 9.6 7.5 - 12.5 fL 11/10/2024 11:23 AM EST [facility] Neutrophil % 87.7 % 11/10/2024 11:23 AM EST [facility] Immature Grans % 0.4 0.0 - 0.9 % 11/10/2024 11:23 AM EST [facility] Lymphocyte % 5.6 % 11/10/2024 11:23 AM EST [facility] Monocyte % 6.2 % 11/10/2024 11:23 AM EST [facility] Eosinophil % 0.0 % 11/10/2024 11:23 AM EST [facility] Basophil % 0.1 % 11/10/2024 11:23 AM EST [facility] Neutrophil # 8.90(H) 1.50 - 7.80 10*3/uL 11/10/2024 11:23 AM EST [facility] Immature Grans # 0.04(H) <=0.03 10*3/uL 11/10/2024 11:23 AM EST [facility] Lymphocyte # 0.60(L) 0.85 - 3.90 10*3/uL 11/10/2024 11:23 AM EST [facility] Monocyte # 0.60 0.20 - 0.95 10*3/uL 11/10/2024 11:23 AM EST [facility] Eosinophil # <0.03 0.02 - 0.50 10*3/uL 11/10/2024 11:23 AM EST [facility] Basophil # <0.03 0.00 - 0.20 10*3/uL 11/10/2024 11:23 AM EST [facility] nRBC % 0.0 /100 WBCs 11/10/2024 11:23 AM EST [facility] nRBC # <0.01 <0.01 10*3/uL 11/10/2024 11:23 AM EST [facility] Blood Structure of peripheral vein / Unknown Venipuncture / Unknown 11/10/2024 10:17 AM EST 11/10/2024 10:32 AM EST Saqib Santos MD LAB BLOOD ORDERABLES Final R esult [facility] [address] [place] [address], * (ABNORMAL) Basic Metabolic Panel (11/10/2024 10:17 AM EST) NA 135 135 - 145 mmol/L 11/10/2024 11:10 AM EST [facility] K 4.7 3.5 - 5.3 mmol/L 11/10/2024 11:10 AM EST [facility] Cl 100 98 - 107 mmol/L 11/10/2024 11:10 AM EST [facility] CO2 25 22 - 32 mmol/L 11/10/2024 11:10 AM EST [facility] BUN 17 7 - 23 mg/dL 11/10/2024 11:10 AM EST [facility] Creatinine 1.13 0.50 - 1.20 mg/dL 11/10/2024 11:10 AM EST [facility] Glucose 256(H) 65 - 99 mg/dL 11/10/2024 11:10 AM EST [facility] Calcium 8.7 8.6 - 10.5 mg/dL 11/10/2024 11:10 AM EST [facility] Anion Gap 10 5 - 15 11/10/2024 11:10 AM EST [facility] eGFR 50(L) >=60 mL/min/1. 73m2 11/10/2024 11:10 AM EST [facility] Comment:The estimated glomer ular filtration [...] ORDERABLES Final R esult Performing Organization Address City/[facility] [[email or web address]] Co de Phone Number [facility] [address] [place] [address], [place] * X-Ray Knee Left 1 or [...] obtain the completed interpretation. ? Workstation ID: [id number] Narrative 11/09/2024 2:58 PM EST COMPARISON: ??06/04/2024. ?? FINDINGS AND Resulting Agency Comment [id number] Procedure Note Marlena Lakhani MD - 11/09/2024 [...] possible to obtain thecompleted interpretation. Workstation ID: [id number] us Saqib Santos MD IMG XR PROCEDURES Final Resu lt * Tissue Exam (11/09/2024 10:55 AM EST) Final Diagnosis Bone and Tissue, Left Knee: - Osteoarthritis with osteophyte formation and bony eburnation. [facility] MANUAL 11/16/2024 12:54 PM EDT [employer] [facility] at 1254 EDT Clinical History Pre-op diagnosis: Primary osteoarthritis of left knee [M17.12] [facility] MANUAL 11/16/2024 12:54 PM EDT [employer] [facility] Gross Description 1. Knee, [...] osteophyte formation. The margins are flat. A human resources representative section is submitted in cassette 1A after fixation and decalcification. [facility] MANUAL 11/16/2024 12:54 PM EDT [facility] [employer] [facility] Gross Description User Grossing complete by Patel Sutherland on 11/09/2024 3:23 PM [facility] MANUAL 11/16/2024 12:54 PM EDT [facility] [employer] [facility] Embedded Images [facility] MANUAL 11/16/2024 12:54 PM EDT [employer] [facility] Resulting Agency Case was signed out at [facility], Department of Pathology, [employer] 3 CLIA [id number] [facility] MANUAL 11/16/2024 12:54 PM EDT [facility] [employer] [facility] Report Header Surgical Pathology Report ? Case: [id number] ? Authorizing Provider: ??Saqib Santos MD ? Collected: ? 11/09/2024 1055 ? Ordering Location: ? [facility]- ?Received: ?11/09/2024 1308 ? [facility] ? Surgery ? Pathologist: ? Campos Saini [...] [facility] [address] [place] [address], documented in this encounter Visit Diagnoses Diagnosis [...] RN)1956 (Given - Provider: Arnold King RN) 220 (Given - Provider: Sandra Barroso RN) Continuous [...] RN) 0033 (Given - Provider: Arnold King RN)8645 (Given - Provider: Kevin Dominguez RN) 0731 (Given - Provider: Jill Corea RN)1205 (Given - Provider: Jill Corea RN)1552 (Given - Provider: Jill Corea RN - Comment: admin 13 minutes early, patient leaving via ambulance to [facility], [address], needs pain [...] administration. documented in this encounter Care Teams Stunner Relationship Specialty Start Date End Date Chen Pop [facility] [place] [address] PCP - General Internal Medicine 05/01/24 documented as of this encounter
--- OUTSIDE RECORDS SUMMARY | 2024-12-03 15:39 | XMS_ITS | Encounter Summary ---
Author Organization [facility] Address [address] [place] [address] Care Team Providers Care Dry Chain Worker Name Role Phone Lorraine Popanna Primary Care Provider [phone] Encounter Details Date Type Department Care Team (Late st Contact Info) Description 10/27/2024 kajeet Message Initial Department [address] [place] [address] Mychart, Generic Provider [place] [address] Questionnaire Submission Social History Tobacco [...] 3:45 PM EDT Telehealth CC [facility] AT [address] [facility] [address] [place] [address] Saqib Santos J.P., MD [address] [place] [address] documented as of this encounter Visit Diagnoses Not on filedocumented in this encounter Care Teams Dry Chain Worker Relationship Specialty Start Date End Date Chen Pop [address] [place] [id number] PCP - General Internal Medicine 05/01/24 documented as of this encounter
--- OUTSIDE RECORDS SUMMARY | 2024-12-03 15:39 | XMS_ITS | Encounter Summary ---
Author Organization [facility] Address [address] [place] [address] Care Team Providers Care Senior Control Systems Engineer Name Role Phone Chen Pop Primary Care Provider Encounter Details Date Type Department Care Team (Late st Contact Info) Description 07/06/2024 myChart Message Initial Department [address] [place] [phone] Mychart, Generic Provider [address] [place] [id number] Questionnaire Submission Social History Tobacco Use [...] PM EDT Telehealth CC [facility] AT [address] [place] [address] Saqib Santos J.P., MD [address] [place] [address] documented as of this encounter Visit Diagnoses Not on filedocumented in this encounter Care Teams Senior Control Systems Engineer Relationship Specialty Start Date End Date Chen Pop [address] [place] [address] PCP - General Internal Medicine 05/01/24 documented as of this encounter
--- OUTSIDE RECORDS SUMMARY | 2024-12-03 15:39 | XMS_ITS | Encounter Summary ---
Author Organization [facility] Address [address] [place] [address] Care Team Providers Care Director Of Parks And Recreation Name Role Phone Lorraine Popanna Primary Care Provider [phone] Reason for Visit * Auth/Cert (Routine) Specialty Diagnoses / Procedures Referred By Contac t Referred To Contact Diagnoses Primary osteoarthritis of left knee Primary osteoarthritis of left knee [M17.12] Procedures CT TOTAL KNEE ARTHROPLASTY ARTHROPLASTY, KNEE, CONDYLE AND PLATEAU; MEDIAL AND LATERAL COMPARTMENTS WITH OR WITHOUT PATELLA RESURFACING (TOTAL KNEE ARTHROPLASTY) Saqib Santos J.P., MD [address] [place] [address] Phone: tel: fax: Referral ID Status Reason Start Date Expiration Date Visits Re quested Visits Authorized [id number] 10/22/2024 99 99 Encounter Details Date Type Department Care Team (Late st Contact Info) Description 11/09/2024 9:59 AM EST Anesthesia Event [facility] [address] [place] [address] Jimmy Liu MD [address] [place] [id number] Anesthesia Record Procedure Summary Procedure Name Responsible [...] 07/20/24; Knee; Anterior, Right 07/20/24 0000 by Brtitaney Hernandez RN Incision / Procedural Site 11/09/24; [...] Procedure Summary Date: 11/09/24 Room / Location: [facility] OR OR Anesthesia Start: 958 Anesthesia Stop: [...] performed Peripheral Block Ultrasound #1 Probe: Linear [id number] Patient position: supine Prep: ChloraPrep Patient monitoring: [...] OR WITHOUT PATELLA RESURFACING (TOTAL KNEE ARTHROPLASTY): 14976 (CPT??) Surgeon(s): Saqib Santos MD Past Medical [...] CLASSIC times two JOINT REPLACEMENT Right hip CT TOTAL KNEE ARTHROPLASTY Right 07/20/2024 Procedure: ARTHROPLASTY, KNEE, CONDYLE AND PLATEAU; MEDIAL AND LATERAL COMPARTMENTS WITH OR WITHOUTPATELLA RESURFACING (TOTAL KNEE ARTHROPLASTY); Surgeon: Saqib Santos MD; Location: [facility]; Service: Orthopedics SALPINGOOPHORECTOMY Bilateral VARICOSE VEIN [...] , , , , , (-) past VA, CAD, dysrhythmias, angina, MCCRARY, murmur ECG reviewed [...] PM EDT Telehealth CC [facility] AT [address] [facility] [address] [place] [address] Saqib Santos J.P., MD [address] [place] [address] documented as of this encounter Procedures * Due to [facility] law, this organization might not be sharing negative HIV tests. Procedure Name Priority Date/Time Associated Diagnosis Comments CT AN PAIN BLOCK AT SURGEON REQUEST Routine 11/09/2024 9:[address] AN PERIPHERAL BLOCK POST-OP PAIN Routine 11/09/2024 9:40 AM EST documented in this encounter Results * Due to [place] [employer] law, this organization might not be sharing negative HIV tests. * CT AN PERIPHERAL BLOCK POST-OP PAIN, CT AN PAIN BLOCK AT SURGEON REQUEST (11/09/2024 [...] performed Peripheral Block Ultrasound #1 Probe: Linear [id number] Patient position: supine Prep: ChloraPrep Patient monitoring: [...] g documented in this encounter Care Teams Director Of Parks And Recreation Relationship Specialty Start Date End Date Chen Pop [address] [place] [address] PCP - General Internal Medicine 05/01/24 documented as of this encounter
--- OUTSIDE RECORDS SUMMARY | 2024-12-03 15:39 | XMS_ITS | Encounter Summary ---
Author Organization [facility] Address [address] [place] [address] Care Team Providers Care Corporate Travel Agent Name Role Phone Chen Pop Primary Care Provider [phone] Reason for Visit * Auth/Cert (Routine) Specialty Diagnoses / Procedures Referred By Hakeem t Referred To Contact Diagnoses Primary osteoarthritis of left knee Primary osteoarthritis of left knee [M17.12] Procedures OK TOTAL KNEE ARTHROPLASTY ARTHROPLASTY, KNEE, CONDYLE AND PLATEAU; MEDIAL AND LATERAL COMPARTMENTS WITH OR WITHOUT PATELLA RESURFACING (TOTAL KNEE ARTHROPLASTY) Saqib Santos J.P., MD [address] [place] [address] Phone: tel: fax: Referral ID Status Reason Start Date Expiration Date Visits Re quested Visits Authorized [id number] 10/22/2024 99 99 Encounter Details Date Type Department Care Team (Late st Contact Info) Description 11/09/2024 9:40 AM EST - 11/09/2024 12:25 PM EST Surgery [facility] Day Surgery [address] [place] [address] Saqib Santos J.P., MD [address] [place] [address] ARTHROPLASTY, KNEE, CONDYLE AND PLATEAU; MEDIAL AND LATERAL COMPARTMENTS WITH OR WITHOUT PATELLA RESURFACING (TOTAL KNEE ARTHROPLASTY) [80299 (CPT??)] Social History Tobacco Use Types Packs/Day [...] original note were not included. DISCHARGE SUMMARY [facility] DISCHARGE INFORMATION: Date and Time of Admission: 11/09/2024 12:05 PM Date of Discharge: 11/12/2024 DISCHARGE DIAGNOSIS: Problem List Active Problems * (Principal) Primary osteoarthritis of left knee ATTENDING PHYSICIAN ON DISCHARGE: Attending Provider: Saqib Santos MD [phone] FOLLOW-UPS AND SCHEDULED APPOINTMENTS: Future Appointments Date Time Provider Department Center 12/03/2024 1:15 PM Saqib Santos MD [id number] None PENDING LABS: . None DISCHARGE MEDICATIONS: [...] CLASSIC times two JOINT REPLACEMENT Right hip OK TOTAL KNEE ARTHROPLASTY Right 07/20/2024 Procedure: ARTHROPLASTY, KNEE, CONDYLE AND PLATEAU; MEDIAL AND LATERAL COMPARTMENTS WITH OR WITHOUTPATELLA RESURFACING (TOTAL KNEE ARTHROPLASTY); Surgeon: Saqib Santos MD; Location: [facility]; Service: Orthopedics OK TOTAL KNEE ARTHROPLASTY Left 11/09/2024 Procedure: ARTHROPLASTY, KNEE, CONDYLE AND PLATEAU; MEDIAL AND LATERAL COMPARTMENTS WITH OR WITHOUTPATELLA RESURFACING (TOTAL KNEE ARTHROPLASTY); Surgeon: Saqib Santos MD; Location: [facility]; Service: Orthopedics SALPINGOOPHORECTOMY Bilateral VARICOSE VEIN [...] about DERMABOND PRINEO System please our office ([phone]) Saqib Santos MD [facility] [address], [address] [address] [place], [address] [address] [place] [address] (Office) At Home Instructions, Total [...] you enter the car. 2. Have the national flatbed truck driver park on a flat surface [...] have occurred. Lillian Copeland : 1945 CSN: [id number] Source Note - Saqib aSntos MD - 10/29/2024 1:00 PM EST Images [...] created with voice recognition software. Occasional wrong-wordor qwhkt-d-zlww substitutions may have occurred due to the inherent limitations of voice recognition software. Read the chart carefully and recognize, using context, where substitutions have occurred. documented in this encounter Miscellaneous Notes * Plan of Care - Jill Corea RN - 11/12/2024 3:58 PM EST Discharge patient per order Patient discharging to [facility]. VSS, A&Ox4, patient adequate for discharge. PIV removed. All patient belongings returned to patient. Patient medicated for pain for transport, see MAR. Patient transported by ambulance stretcher. * Plan of Care - Kenya Hendrickson - 11/12/2024 2:52 PM EST Case Management - Message received from [facility] reporting patient will need to bring her Ninlaro medication with her. Patient reports she is due to take this medication on 11/20 and her son will bring it in to facility if she is still there when it is due. [facility] updated via [employer]. * Plan of Care - Jill Corea RN - 11/12/2024 2:43 PM EST RN report called to accepting nurse at [facility] [phone] * Plan of Care - Kenya Hendrickson - 11/12/2024 2:34 PM EST Discharge Note: Pertinent Clinical and Medical Clearance: Patient cleared medically by MD to discharge to IRF. Met with patient and spoke with her son Ethan on the phone. They are in agreement with plan. Final Discharge Plan: Discharge to [address] Handoff # [phone] provided to nursing via secure chat. 3. [...] disease) Hiatal hernia Hypertension Multiple myeloma ([facility]) Past Surgical History: Procedure Laterality Date ANKLE FRACTURE SURGERY Left BREAST LUMPECTOMY Right times two CATARACT EXTRACTION W/ INTRAOCULAR LENS IMPLANT Bilateral SECTION, CLASSIC times two JOINT REPLACEMENT Right hip OK TOTAL KNEE ARTHROPLASTY Right 07/20/2024 Procedure: ARTHROPLASTY, KNEE, CONDYLE AND PLATEAU; MEDIAL AND LATERAL COMPARTMENTS WITH OR WITHOUTPATELLA RESURFACING (TOTAL KNEE ARTHROPLASTY); Surgeon: Saqib Santos MD; Location: [facility]; Service: Orthopedics OK TOTAL KNEE ARTHROPLASTY Left 11/09/2024 Procedure: ARTHROPLASTY, KNEE, CONDYLE AND PLATEAU; MEDIAL AND LATERAL COMPARTMENTS WITH OR WITHOUTPATELLA RESURFACING (TOTAL KNEE ARTHROPLASTY); Surgeon: Saqib Santos MD; Location: [facility]; Service: Orthopedics SALPINGOOPHORECTOMY Bilateral VARICOSE VEIN SURGERY Bilateral Treatment: Default Flowsheet Data (Last 12 Hours) Adult PT Evaluation/Treatment Row Name 11/12/24 1207 General Information Patient Profile Review yes General Observations of Patient supine in bed resting Row Name 11/12/24 1208 Bed Mobility Assessment/Treatment Assistive Device (Bed Mobility) hospital bed;bedrail Zovmpk-zf-Bqj [place] (Bed Mobility) minimum assist (75% patient effort);verbal cues required;set up required;HOB elevated Safety Issues (Bed Mobility) decreased use of legs for bridging/pushing Impairments (Bed Mobility) pain;ROM (range of motion) decreased;strength decreased Row Name 11/12/24 1208 Transfer Assessment/Treatment Sit-Stand [place] level (Transfers) contact guard assist;verbal cues required;set up required Stand-Sit [place] level(Transfers) minimum assist (75% patient effort);verbal cues required;set up required Vvr-Vhmog-Mot Assistive Device (Transfers) gait belt;walker, rolling Toilet [place] Level (Transfers) minimum assist (75% patient effort);verbal [...] chair Row Name 11/12/24 1208 Gait Assessment/Treatment [place] (Gait) contact guard assist;verbal cues required Assistive [...] to supine/supine to sit -- -- -- [place] Level/Cues Needed (Bed Mobility Goal 1, PT) independent -- -- -- Assitive Devices (Bed Mobility Goal 1, PT) none -- -- -- Time Frame (Bed Mobility Goal 1, PT) 2 days -- -- -- Outcomes (Bed Mobility Goal 1, PT) -- goal ongoing goal ongoing goal ongoing Row Name 11/09/24 17011/10/24119911/10/24 1300 11/12/24 1200 Transfer Goal 1 (PT) Activity (Transfer Goal 1, PT) jid-ny-jjuok/kogra-de-zvb;bqo-or-ctyyy/rpvyr-nt-ibz -- -- -- [place] Level/Cues Needed (Transfer Goal 1, PT) contact [...] endurance/gait distance;normalize weight shifts -- -- -- [place] Level (Gait Training Goal 1, PT) contact [...] Goal 1, PT) ascending stairs;descending stairs;using handrail, left;itrk-eu-ppvz [place] Level/Cues Needed (Stairs Goal 1, PT) supervision required Assistive Devices (Stairs Goal 1, PT) handrail;cane, straight Number of Stairs (Stairs Goal 1, PT) 4 Time Frame (Stairs Goal 1, PT) 3 days Row Name 11/09/24 1700 Briar Wood Sorter Goal (PT) Statement (Long-Term Goal, PT) Return to PLOF [place] Level (Briar Wood Sorter Goal, PT) modified independence Time Frame (Briar Wood Sorter Goal, PT) 2 weeks Aime De PTA Licensure: CHANGE CONSULTANT, [place]: [id number] * Plan of Care - [...] CLASSIC times two JOINT REPLACEMENT Right hip OK TOTAL KNEE ARTHROPLASTY Right 07/20/2024 Procedure: ARTHROPLASTY, KNEE, CONDYLE AND PLATEAU; MEDIAL AND LATERAL COMPARTMENTS WITH OR WITHOUTPATELLA RESURFACING (TOTAL KNEE ARTHROPLASTY); Surgeon: Saqib Santos MD; Location: [facility]; Service: Orthopedics OK TOTAL KNEE ARTHROPLASTY Left 11/09/2024 Procedure: ARTHROPLASTY, KNEE, CONDYLE AND PLATEAU; MEDIAL AND LATERAL COMPARTMENTS WITH OR WITHOUTPATELLA RESURFACING (TOTAL KNEE ARTHROPLASTY); Surgeon: Saqib Santos MD; Location: [facility]; Service: Orthopedics SALPINGOOPHORECTOMY Bilateral VARICOSE VEIN SURGERY Bilateral Vitals Treatment: OT EVAL/TREAT (Last 12 Hours) Adult OT Eval/Treat Row Name 11/12/24 0820 Bed Mobility Assessment/Treatment Aog-fk-Cmpgya [place] (Bed Mobility) moderate assist (50% patient effort) Row Name 11/12/24 0820 Static Standing Balance Static Standing Position unsupported Static Standing Assistance Contact guard Static Standing Time (seconds) 15 seconds Row Name 11/12/24 0820 Transfer Assessment/Treatment Sit-Stand [place] level (Transfers) minimum assist (75% patient effort) extra time, pt talks self through sequence Toilet [place] Level (Transfers) contact guard assist extra time [...] (Transfer Goal 1, OT) toilet transfer -- [place] Level (Transfer Goal 1, OT) supervision required -- Assitive Devices (Transfer Goal 1, OT) walker, rolling -- Time Frame (Transfer Goal 1, OT) 4 days -- Outcome (Transfer Goal 1, OT) -- goal ongoing Row Name 11/10/24 1400 11/11/24 1000 Dressing Goal 1 (OT) Activity (Dressing Goal 1, OT) lower body dressing -- [place] Level (Dressing Goal 1, OT) supervision required -- Assistive Devices (Dressing Goal 1, OT) rn staffing;sock-aid -- Time Frame (Dressing Goal 1, OT) 4 days -- Outcomes (Dressing Goal 1, OT) -- goal ongoing Row Name 11/10/24139911/11/24 1000 Toileting Goal 1 (OT) Activity (Toileting Goal 1, OT) perform perineal hygiene;adjust/manage clothing -- [place] Level (Toileting Goal 1, OT) supervision required -- Assistive Devices (Toileting Goal 1, OT) raised toilet seat;grab bar;walker, rolling -- Outcome (Toileting Goal 1, OT) -- goal ongoing Row Name 11/10/24 1400 Long-Term Goal (OT) Statement (Long-Term Goal, OT) return to home Dayan Ibarra OT Licensure: NED CORRAL: [id number] * Plan of Care - Kevin Dominguez [...] shortness of breath, no chest pain, 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 IS at bedside- pt able [...] have been offered. Her preferred facility - [facility] in [place] has clinically accepted her, butdid not have [...] a one story [place] style home in [place], where she has 4 steps at the entrance. She has two sons who live in [place] and [place]. Son Ethan has requested to have search for rehab bed expanded further anywhere in the state. He is questioning why [facility] in [place] was able to clinically accept pt while other acute facilities were not. Again, SHAHBAZ explained the above stated. He states that pt went there before when she had the exact same surgical procedure on the other side, and is adamant that if pt was accepted then, she should be accepted at rehab now. - Again, [facility], where pt was then, accepted but does not forsee an available acute rehab bed any time soon. CM expanded search through out the state to other [facility] facilities, as requested by pt and [...] - 11/11/2024 4:17 PM EST Care assumed 2470-1985. Pt AOX 4. 1 A OOB to [...] (interventions implemented as appropriate) Flowsheets (Taken 11/11/2024 7148) Plan of Care Reviewed With: patient Plan [...] CLASSIC times two JOINT REPLACEMENT Right hip OK TOTAL KNEE ARTHROPLASTY Right 07/20/2024 Procedure: ARTHROPLASTY, KNEE, CONDYLE AND PLATEAU; MEDIAL AND LATERAL COMPARTMENTS WITH OR WITHOUTPATELLA RESURFACING (TOTAL KNEE ARTHROPLASTY); Surgeon: Saqib Santos MD; Location: [facility]; Service: Orthopedics OK TOTAL KNEE ARTHROPLASTY Left 11/09/2024 Procedure: ARTHROPLASTY, KNEE, CONDYLE AND PLATEAU; MEDIAL AND LATERAL COMPARTMENTS WITH OR WITHOUTPATELLA RESURFACING (TOTAL KNEE ARTHROPLASTY); Surgeon: Saqib Santos MD; Location: [facility]; Service: Orthopedics SALPINGOOPHORECTOMY Bilateral VARICOSE VEIN [...] Row Name 11/11/24 1015 Bed Mobility Assessment/Treatment Hhh-vm-Rgdybj [place] (Bed Mobility) minimum assist (75% patient effort);verbal cues required;nonverbal cues required (demo/gesture) Impairments (Bed Mobility) strength decreased;ROM (range of motion) decreased;pain Row Name 11/11/24 1435 Transfer Assessment/Treatment Comment (Transfers) pt declined OOB Row Name 11/11/24 1015 Transfer Assessment/Treatment Sit-Stand [place] level (Transfers) minimum assist (75% patient effort);verbal cues required Stand-Sit [place] level(Transfers) minimum assist (75% patient effort);verbal cues required Jkw-Gpecw-Lck Assistive Device (Transfers) walker, rolling;gait belt Maintain Weight Bearing Status (Transfers) able to maintain weight bearing status Safety Issues (Transfers) step length decreased;weight-shifting ability decreased;balance decreasedduring turns Impairments (Transfers) strength decreased;ROM (range of motion) decreased;pain Row Name 11/11/24 1015 Gait Assessment/Treatment [place] (Gait) contact guard assist;verbal cues required Assistive [...] right;scooting;sit to supine/supine to sit -- -- [place] Level/Cues Needed (Bed Mobility Goal 1, PT) independent -- -- Assitive Devices (Bed Mobility Goal 1, PT) none -- -- Time Frame (Bed Mobility Goal 1, PT) 2 days -- -- Outcomes (Bed Mobility Goal 1, PT) -- goal ongoing goal ongoing Row Name 11/09/24 17011/10/24 1200 11/10/24 1300 Transfer Goal 1 (PT) Activity (Transfer Goal 1, PT) rwx-hn-mbahi/hkefy-vz-lvv;mik-hj-ddxan/nknnx-zi-ymf -- -- [place] Level/Cues Needed (Transfer Goal 1, PT) contact [...] speed;increase endurance/gait distance;normalize weight shifts -- -- [place] Level (Gait Training Goal 1, PT) contact [...] Goal 1, PT) ascending stairs;descending stairs;using handrail, left;puua-du-fdkd [place] Level/Cues Needed (Stairs Goal 1, PT) supervision required Assistive Devices (Stairs Goal 1, PT) handrail;cane, straight Number of Stairs (Stairs Goal 1, PT) 4 Time Frame (Stairs Goal 1, PT) 3 days Row Name 11/09/24 1700 Briar Wood Sorter Goal (PT) Statement (Long-Term Goal, PT) Return to PLOF [place] Level (Long-Term Goal, PT) modified independence Time Frame (Long-Term Goal, PT) 2 weeks Aime De PTA [...] correction of same Anxiety Cancer (CMS/HCC) ([facility]) right breast Depression GERD (gastroesophageal reflux disease) Hiatal hernia Hypertension Multiple myeloma ([facility]) Past Surgical History: Procedure Laterality Date ANKLE FRACTURE SURGERY Left BREAST LUMPECTOMY Right times two CATARACT EXTRACTION W/ INTRAOCULAR LENS IMPLANT Bilateral SECTION, CLASSIC times two JOINT REPLACEMENT Right hip OK TOTAL KNEE ARTHROPLASTY Right 07/20/2024 Procedure: ARTHROPLASTY, KNEE, CONDYLE AND PLATEAU; MEDIAL AND LATERAL COMPARTMENTS WITH OR WITHOUTPATELLA RESURFACING (TOTAL KNEE ARTHROPLASTY); Surgeon: Saqib Santos MD; Location: [facility]; Service: Orthopedics OK TOTAL KNEE ARTHROPLASTY Left 11/09/2024 Procedure: ARTHROPLASTY, KNEE, CONDYLE AND PLATEAU; MEDIAL AND LATERAL COMPARTMENTS WITH OR WITHOUTPATELLA RESURFACING (TOTAL KNEE ARTHROPLASTY); Surgeon: Saqib Santos MD; Location: [facility]; Service: Orthopedics SALPINGOOPHORECTOMY Bilateral VARICOSE [...] Row Name 11/11/24 1015 Bed Mobility Assessment/Treatment Llo-ei-Iucbws [place] (Bed Mobility) minimum assist (75% patient effort);verbal cues required;nonverbal cues required (demo/gesture) Impairments (Bed Mobility) strength decreased;ROM (range of motion) decreased;pain Row Name 11/11/24 1015 Transfer Assessment/Treatment Sit-Stand [place] level (Transfers) minimum assist (75% patient effort);verbal cues required Stand-Sit [place] level(Transfers) minimum assist (75% patient effort);verbal cues required Npk-Tzhes-Sda Assistive Device (Transfers) walker, rolling;gait belt Maintain Weight Bearing Status (Transfers) able to maintain weight bearing status Safety Issues (Transfers) step length decreased;weight-shifting ability decreased;balance decreasedduring turns Impairments (Transfers) strength decreased;ROM (range of motion) decreased;pain Row Name 11/11/24 1015 Gait Assessment/Treatment [place] (Gait) contact guard assist;verbal cues required Assistive [...] right;scooting;sit to supine/supine to sit -- -- [place] Level/Cues Needed (Bed Mobility Goal 1, PT) independent -- -- Assitive Devices (Bed Mobility Goal 1, PT) none -- -- Time Frame (Bed Mobility Goal 1, PT) 2 days -- -- Outcomes (Bed Mobility Goal 1, PT) -- goal ongoing goal ongoing Row Name 11/09/24 1700 11/10/24 1200 11/10/24 1300 Transfer Goal 1 (PT) Activity (Transfer Goal 1, PT) mxh-jv-vugkb/emkni-xw-mvf;boy-jz-ovjsw/svwqh-ab-cqn -- -- [place] Level/Cues Needed (Transfer Goal 1, PT) contact [...] speed;increase endurance/gait distance;normalize weight shifts -- -- [place] Level (Gait Training Goal 1, PT) contact [...] Goal 1, PT) ascending stairs;descending stairs;using handrail, left;acsu-ha-rwgl [place] Level/Cues Needed (Stairs Goal 1, PT) supervision required Assistive Devices (Stairs Goal 1, PT) handrail;cane, straight Number of Stairs (Stairs Goal 1, PT) 4 Time Frame (Stairs Goal 1, PT) 3 days Row Name 11/09/24 1700 Briar Wood Sorter Goal (PT) Statement (Briar Wood Sorter Goal, PT) Return to PLOF [place] Level (Briar Wood Sorter Goal, PT) modified independence Time Frame (Briar Wood Sorter Goal, PT) 2 weeks Chelsea Fagan PTA [...] Max A LBB/D. Education/training in use of rn staffing for donning clean undergarment over feet. Pt [...] disease) Hiatal hernia Hypertension Multiple myeloma ([facility]) Past Surgical History: Procedure Laterality Date ANKLE FRACTURE SURGERY Left BREAST LUMPECTOMY Right times two CATARACT EXTRACTION W/ INTRAOCULAR LENS IMPLANT Bilateral SECTION, CLASSIC times two JOINT REPLACEMENT Right hip OK TOTAL KNEE ARTHROPLASTY Right 07/20/2024 Procedure: ARTHROPLASTY, KNEE, CONDYLE AND PLATEAU; MEDIAL AND LATERAL COMPARTMENTS WITH OR WITHOUTPATELLA RESURFACING (TOTAL KNEE ARTHROPLASTY); Surgeon: Saqib Santos MD; Location: [facility]; Service: Orthopedics OK TOTAL KNEE ARTHROPLASTY Left 11/09/2024 Procedure: ARTHROPLASTY, KNEE, CONDYLE AND PLATEAU; MEDIAL AND LATERAL COMPARTMENTS WITH OR WITHOUTPATELLA RESURFACING (TOTAL KNEE ARTHROPLASTY); Surgeon: Saqib Santos MD; Location: [facility]; Service: Orthopedics SALPINGOOPHORECTOMY Bilateral VARICOSE VEIN [...] Row Name 11/11/24 0915 Bed Mobility Assessment/Treatment Lwsftf-la-Ebq [place] (Bed Mobility) minimum assist (75% patient effort);HOB elevated Row Name 11/11/24 0915 Transfer Assessment/Treatment Sit-Stand [place] level (Transfers) minimum assist (75% patient effort);other (see comments) height of bed raised approx. 20 inches from floor Bed-Chair [place] level (Transfers) contact guard assist Row Name 11/11/24 0915 Grooming Assessment/Training Position (Grooming) sitting [place] Level (Grooming) set up required [facility] Name 11/11/24 0915 Bathing Assessment/Training Position (Bathing) sitting [place] Level (Bathing) moderate assist (50% patient effort) Impairments (Bathing) ROM (range of motion) decreased;pain Row Name 11/11/24 0915 Upper Body Dressing Assessment/Training Position (UB Dressing) sitting [place] Level (UB Dressing) set up required [facility] Name 11/11/24 0915 Lower Body Dressing Assessment/Training Assistive Devices (LB Dressing) rn staffing Position (LB Dressing) standing;sitting [place] Level (LB Dressing) maximum assist (25% patient effort) Impairments (LB Dressing) pain;ROM (range of motion) decreased Row Name 11/11/24 0915 Rehab Eval/Treat-Additional Details Document Type Therapy treatment note OT Treatment Received On 11/11/24 Patient Effort good Symptoms Noted During/After Treatment increased pain;other (see comments) nausea OT Goal Summary (all recorded) OT Goal Summary [facility] Name 11/10/24 1400 Occupational Therapy Goals Transfer Goal Selection (OT) transfer, OT goal 1 Dressing Goal Selection (OT) dressing, OT goal 1 Toileting Goal Selection (OT) toileting, OT goal 1 Row Name 11/10/24 1400 11/11/24 1000 Transfer Goal 1 (OT) Activity (Transfer Goal 1, OT) toilet transfer -- [place] Level (Transfer Goal 1, OT) supervision required -- Assitive Devices (Transfer Goal 1, OT) walker, rolling -- Time Frame (Transfer Goal 1, OT) 4 days -- Outcome (Transfer Goal 1, OT) -- goal ongoing Row Name 11/10/24 1400 11/11/24 1000 Dressing Goal 1 (OT) Activity (Dressing Goal 1, OT) lower body dressing -- [place] Level (Dressing Goal 1, OT) supervision required -- Assistive Devices (Dressing Goal 1, OT) rn staffing;sock-aid -- Time Frame (Dressing Goal 1, OT) 4 days -- Outcomes (Dressing Goal 1, OT) -- goal ongoing Row Name 11/10/24 1400 11/11/24 1000 Toileting Goal 1 (OT) Activity (Toileting Goal 1, OT) perform perineal hygiene;adjust/manage clothing -- [place] Level (Toileting Goal 1, OT) supervision required -- Assistive Devices (Toileting Goal 1, OT) raised toilet seat;grab bar;walker, rolling -- Outcome (Toileting Goal 1, OT) -- goal ongoing Row Name 11/10/24 1400 Long-Term Goal (OT) Statement (Briar Wood Sorter Goal, OT) return to home Dayan Ibarra OT Licensure: NED CORRAL: [id number] * Plan of Care - Jordyn Fitzgerald RN - 11/11/2024 8:59 AM EST Assumed care of patient from 9630-4757, AxOx4, RA, 1A w/RW for mobility and ADLs. Able tolerate sitting up @ the edge of bed. Elective Total L knee, post op (2). Able to tolerate meds whole. 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 RLE band aid CDI. +CSM. C/O of [...] RN - 11/11/2024 12:58 AM EST POD#1-2 [id number] Assumed care of patient @ 1900. Patient [...] as appropriate) * Plan of Care - aFtuma Suarez - 11/10/2024 2:31 PM EST Shahbaz spoke with [facility] [phone] and they do not have a bed [...] Plan of Care Review Flowsheets (Taken 11/10/2024 2407) Plan of Care Reviewed With: patient Comments:77 [...] Plan of Care Review Flowsheets (Taken 11/10/2024 1869) Plan of Care Reviewed With: patient Patient [...] CLASSIC times two JOINT REPLACEMENT Right hip OK TOTAL KNEE ARTHROPLASTY Right 07/20/2024 Procedure: ARTHROPLASTY, KNEE, CONDYLE AND PLATEAU; MEDIAL AND LATERAL COMPARTMENTS WITH OR WITHOUTPATELLA RESURFACING (TOTAL KNEE ARTHROPLASTY); Surgeon: Saqib Santos MD; Location: [facility]; Service: Orthopedics OK TOTAL KNEE ARTHROPLASTY Left 11/09/2024 Procedure: ARTHROPLASTY, KNEE, CONDYLE AND PLATEAU; MEDIAL AND LATERAL COMPARTMENTS WITH OR WITHOUTPATELLA RESURFACING (TOTAL KNEE ARTHROPLASTY); Surgeon: Saqib Santos MD; Location: [facility]; Service: Orthopedics SALPINGOOPHORECTOMY Bilateral VARICOSE VEIN [...] home ADL Aids (row);Ambulation (row) ADL Aids rn staffing;sock aid Ambulation cane - straight;walker - rolling [...] small dog Row Name 11/10/24 0845 IADLs CHANGE CONSULTANT Meal Plan/Prep primary Shopping primary Money Management primary Medical/Medication Management primary Transportation primary drives Row Name 11/10/24 0845 IADLs Current Meal Plan/Prep impaired Spiral Winder impaired Transportation impaired Row Name 11/10/24 0845 [...] Row Name 11/10/24 0845 Transfer Assessment/Treatment Sit-Stand [place] level (Transfers) minimum assist (75% patient effort) Stand-Sit [place] level(Transfers) minimum assist (75% patient effort) Rdh-Hnpuq-Wsl Assistive Device (Transfers) walker, rolling Chair-Bed [place] level (Transfers) minimum assist (75% patient effort) Izq-Lgpio-Ucm Assistive Device (Transfers) walker, rolling Toilet [place] Level (Transfers) minimum assist (75% patient effort) Row Name 11/10/24 0845 Mobility Assessment/Training Additional Documentation -- ADL mobility with RW indoor/room surface 9 ft with 1 turn, min A and verbal cues. Pt noted to limit L knee flexion, hiking hip when stepping forward Row Name 11/10/24 0845 Upper Body Dressing Assessment/Training [place] Level (UB Dressing) set up required Row Name 11/10/24 0845 Lower Body Dressing Assessment/Training [place] Level (LB Dressing) maximum assist (25% patient effort) Row Name 11/10/24 0845 Toileting Assessment/Training [place] Level (Toileting) moderate assist (50% patient effort) [...] Activity (Transfer Goal 1, OT) toilet transfer [place] Level (Transfer Goal 1, OT) supervision required Assitive Devices (Transfer Goal 1, OT) walker, rolling Time Frame (Transfer Goal 1, OT) 4 days Row Name 11/10/24 1400 Dressing Goal 1 (OT) Activity (Dressing Goal 1, OT) lower body dressing [place] Level (Dressing Goal 1, OT) supervision required Assistive Devices (Dressing Goal 1, OT) rn staffing;sock-aid Time Frame (Dressing Goal 1, OT) 4 days Row Name 11/10/24 1400 Toileting Goal 1 (OT) Activity (Toileting Goal 1, OT) perform perineal hygiene;adjust/manage clothing [place] Level (Toileting Goal 1, OT) supervision required Assistive Devices (Toileting Goal 1, OT) raised toilet seat;grab bar;walker, rolling Row Name 11/10/24 1400 Long-Term Goal (OT) Statement (Long-Term Goal, OT) return to home Dayan Ibarra OT Licensure: ELLIS [place]: [id number] * Plan of Care - Babita Lawrence [...] correction of same Anxiety Cancer (CMS/HCC) ([facility]) right breast Depression GERD (gastroesophageal reflux disease) Hiatal hernia Hypertension Multiple myeloma ([facility]) Past Surgical History: Procedure Laterality Date ANKLE FRACTURE SURGERY Left BREAST LUMPECTOMY Right times two CATARACT EXTRACTION W/ INTRAOCULAR LENS IMPLANT Bilateral SECTION, CLASSIC times two JOINT REPLACEMENT Right hip OK TOTAL KNEE ARTHROPLASTY Right 07/20/2024 Procedure: ARTHROPLASTY, KNEE, CONDYLE AND PLATEAU; MEDIAL AND LATERAL COMPARTMENTS WITH OR WITHOUTPATELLA RESURFACING (TOTAL KNEE ARTHROPLASTY); Surgeon: Saqib Santos MD; Location: [facility] OR; Service: Orthopedics OK TOTAL KNEE ARTHROPLASTY Left 11/09/2024 Procedure: ARTHROPLASTY, KNEE, CONDYLE AND PLATEAU; MEDIAL AND LATERAL COMPARTMENTS WITH OR WITHOUTPATELLA RESURFACING (TOTAL KNEE ARTHROPLASTY); Surgeon: Saqib Santos MD; Location: [facility] OR; Service: Orthopedics SALPINGOOPHORECTOMY Bilateral VARICOSE [...] Assistive Device (Bed Mobility) bedrail;draw sheet Scoot/Bridge [place] (Bed Mobility) minimum assist (75% patient effort) Geixxu-qt-Xjm [place] (Bed Mobility) minimum assist (75% patient effort) Row Name 11/10/24 1330 Transfer Assessment/Treatment Sit-Stand [place] level (Transfers) minimum assist (75% patient effort) Stand-Sit [place] level(Transfers) minimum assist (75% patient effort);verbal cues required Ovc-Jhuam-Fko Assistive Device (Transfers) gait belt;walker, rolling Bed-Chair [place] level (Transfers) minimum assist (75% patient effort);verbal cues required Toilet [place] Level (Transfers) minimum assist (75% patient effort);verbal cues required Toilet Transfer Type stand step Row Name 11/10/24 09 Transfer Assessment/Treatment Sit-Stand [place] level (Transfers) minimum assist (75% patient effort);verbal cues required Stand-Sit [place] level(Transfers) minimum assist (75% patient effort) Gss-Pdton-Vor Assistive Device (Transfers) walker, rolling;gait belt Row Name 11/10/24 133 Gait Assessment/Treatment [place] (Gait) contact guard assist;verbal cues required;set up required Assistive Device (Gait) walker, rolling;gait belt Distance in Feet (Gait) 2x 15 feet Gait Pattern Analysis 3-point gait Gait Deviations jf, decreased;flexed knee, left;foot flat, left;stance time, decreased, left Row Name 11/10/24 0905 Gait Assessment/Treatment [place] (Gait) contact guard assist;verbal cues required Assistive [...] right;scooting;sit to supine/supine to sit -- -- [place] Level/Cues Needed (Bed Mobility Goal 1, PT) independent -- -- Assitive Devices (Bed Mobility Goal 1, PT) none -- -- Time Frame (Bed Mobility Goal 1, PT) 2 days -- -- Outcomes (Bed Mobility Goal 1, PT) -- goal ongoing goal ongoing Row Name 11/09/24 1700 11/10/24 1200 11/10/24 1300 Transfer Goal 1 (PT) Activity (Transfer Goal 1, PT) mxj-rm-hzaer/lyamj-ru-bwj;blm-fl-jclgb/hktbz-qt-otq -- -- [place] Level/Cues Needed (Transfer Goal 1, PT) contact [...] speed;increase endurance/gait distance;normalize weight shifts -- -- [place] Level (Gait Training Goal 1, PT) contact [...] Goal 1, PT) ascending stairs;descending stairs;using handrail, left;qyri-bs-hruv [place] Level/Cues Needed (Stairs Goal 1, PT) supervision required Assistive Devices (Stairs Goal 1, PT) handrail;cane, straight Number of Stairs (Stairs Goal 1, PT) 4 Time Frame (Stairs Goal 1, PT) 3 days Row Name 11/09/24 1700 Long-Term Goal (PT) Statement (Briar Wood Sorter Goal, PT) Return to PLOF [place] Level (Long-Term Goal, PT) modified independence Time Frame (Briar Wood Sorter Goal, PT) 2 weeks Babita Lawrence PTA [...] CLASSIC times two JOINT REPLACEMENT Right hip OK TOTAL KNEE ARTHROPLASTY Right 07/20/2024 Procedure: ARTHROPLASTY, KNEE, CONDYLE AND PLATEAU; MEDIAL AND LATERAL COMPARTMENTS WITH OR WITHOUTPATELLA RESURFACING (TOTAL KNEE ARTHROPLASTY); Surgeon: Saqib Santos MD; Location: [facility]; Service: Orthopedics OK TOTAL KNEE ARTHROPLASTY Left 11/09/2024 Procedure: ARTHROPLASTY, KNEE, CONDYLE AND PLATEAU; MEDIAL AND LATERAL COMPARTMENTS WITH OR WITHOUTPATELLA RESURFACING (TOTAL KNEE ARTHROPLASTY); Surgeon: Saqib Santos MD; Location: [facility] OR; Service: Orthopedics SALPINGOOPHORECTOMY Bilateral VARICOSE [...] rolling Row Name 11/10/24904 Transfer Assessment/Treatment Sit-Stand [place] level (Transfers) minimum assist (75% patient effort);verbal cues required Stand-Sit [place] level(Transfers) minimum assist (75% patient effort) Zqi-Snfht-Sps Assistive Device (Transfers) walker, rolling;gait belt Row Name 11/10/24904 Gait Assessment/Treatment [place] (Gait) contact guard assist;verbal cues required Assistive [...] to right;scooting;sit to supine/supine to sit -- [place] Level/Cues Needed (Bed Mobility Goal 1, PT) independent -- Assitive Devices (Bed Mobility Goal 1, PT) none -- Time Frame (Bed Mobility Goal 1, PT) 2 days -- Outcomes (Bed Mobility Goal 1, PT) -- goal ongoing [facility] Name 11/09/24 17011/10/24 1200 Transfer Goal 1 (PT) Activity (Transfer Goal 1, PT) ycz-tl-kbndk/cruwp-lk-bcm;xkf-bl-lhlcg/pehkm-tf-jck -- [place] Level/Cues Needed (Transfer Goal 1, PT) contact guard assist -- Assitive Devices (Transfer Goal 1, PT) walker, rolling -- Time Frame (Transfer Goal 1, PT) 2 days -- Outcome (Transfer Goal 1, PT) -- goal ongoing [facility] Name 11/09/24 17011/10/24 1200 Gait Training Goal 1 (PT) Activity (Gait Training Goal 1, PT) gait (walking locomotion);diminish gait deviation;forward stepping;improve balance and speed;increase endurance/gait distance;normalize weight shifts -- [place] Level (Gait Training Goal 1, PT) contact [...] Goal 1, PT) ascending stairs;descending stairs;using handrail, left;gias-sn-ywru [place] Level/Cues Needed (Stairs Goal 1, PT) supervision required Assistive Devices (Stairs Goal 1, PT) handrail;cane, straight Number of Stairs (Stairs Goal 1, PT) 4 Time Frame (Stairs Goal 1, PT) 3 days Row Name 11/09/24 1700 Briar Wood Sorter Goal (PT) Statement (Briar Wood Sorter Goal, PT) Return to PLOF [place] Level (Briar Wood Sorter Goal, PT) modified independence Time Frame (Long-Term Goal, PT) 2 weeks Babita Lawrence PTA [...] in. She has been to Rehab at [facility] in [place] and wasfollowed by Rubina Carey 3. Supports, [...] (interventions implemented as appropriate) Flowsheets (Taken 11/09/2024 4772) Plan of Care Reviewed With: patient Plan [...] procedure for correction of same Anxiety Cancer ([facility]) ([facility]) right breast Depression GERD (gastroesophageal reflux disease) Hiatal hernia Hypertension Multiple myeloma ([facility]) Past Surgical History: Procedure Laterality Date ANKLE FRACTURE SURGERY Left BREAST LUMPECTOMY Right times two CATARACT EXTRACTION W/ INTRAOCULAR LENS IMPLANT Bilateral SECTION, CLASSIC times two JOINT REPLACEMENT Right hip OK TOTAL KNEE ARTHROPLASTY Right 07/20/2024 Procedure: ARTHROPLASTY, KNEE, CONDYLE AND PLATEAU; MEDIAL AND LATERAL COMPARTMENTS WITH OR WITHOUTPATELLA RESURFACING (TOTAL KNEE ARTHROPLASTY); Surgeon: Saqib Santos MD; Location: [facility]; Service: Orthopedics SALPINGOOPHORECTOMY Bilateral VARICOSE VEIN [...] cueing Orientation Status (Cognitive) oriented x 4 [facility] Name 11/09/241699 Pain Scale Pain Scale Pain Scale: Numbers Pre/Post-Treatment (Group) [facility] 11/09/241699 Pain Scale: Numbers Treatment Pain: Pre Treatment (Numbers Scale) 5/10 Pain: During Treatment (Numbers Scale) 4/10 Pain: Post Treatment (Numbers Scale) 4/10 Pain Location - Side (Numbers Scale) Left Pain Location - Orientation (Numbers Scale) generalized Pain Location - Body (Numbers Scale) knee Multiple Pain Sites (Numbers) Two [facility] Name 11/09/241699 Pain Scale 2 Pain: Pre Treatment 2 5/10 Pain: During Treatment 2 6/10 Pain: Post Treatment 2 6/10 Pain Location 2 - Side Right Pain Location 2 - Orientation generalized;anterior;posterior Pain Descriptors 2 Aching;Tightness [facility] Name 11/09/241699 ROM (Range of Motion) General Range of Motion -- L knee flex~120, ext ~0 deg R knee flex~85 deg Row Name 11/09/241699 MMT (Manual Muscle Testing) Additional Documentation -- Good L quad set, able to move LLE without assist Row Name 11/09/241699 Bed Mobility Assessment/Treatment Scoot/Bridge [place] (Bed Mobility) supervision required Lhajqq-mu-Nsd [place] (Bed Mobility) supervision required Impairments (Bed Mobility) pain;ROM (range of motion) decreased;strength decreased Comment (Bed Mobility) pt reports more pain R knee than Row [facility] 11/09/241699 Static Sitting Balance Static Sitting Position sitting, edge of bed Static Sitting Assistance Modified independence Static Sitting Balance Strategies Effective Row Name 11/09/241699 Static Standing Balance Static Standing Position supported Static Standing Assistance Contact guard Static Standing Extremity Support Bilateral lower extremities;Bilateral upper extremities Static Standing Base Normal base Static Standing Balance Strategies Effective Static Standing Assistive Devices walker, rolling;gait belt [facility] Name 11/09/241699 Transfer Assessment/Treatment Sit-Stand [place] level (Transfers) contact guard assist;verbal cues required;nonverbal cues required (demo/gesture) Stand-Sit [place] level(Transfers) contact guard assist;verbal cues required;nonverbal cues required (demo/gesture) Uyd-Qrgpa-Ogs Assistive Device (Transfers) walker, rolling;gait belt Bed-Chair [place] level (Transfers) not tested pt asking to return to bed Maintain Weight Bearing Status (Transfers) able to maintain weight bearing status Impairments (Transfers) pain;ROM (range of motion) decreased;strength decreased [facility] 11/09/241699 Gait Assessment/Treatment [place] (Gait) contact guard assist;verbal cues required Assistive Device (Gait) walker, rolling;gait belt Distance in Feet (Gait) 15 x 2 Gait Deviations jf, decreased;step length, decreased Maintain Weight Bearing Status (Gait) able to maintain weight bearing status Safety Issues (Gait) sequencing ability decreased Impairments (Gait) pain;ROM (range of motion) decreased;strength decreased Comment (Gait) requires intermittent cueing for sequencing [facility] 11/09/241699 Therapeutic Exercise Lower Extremity Therapeutic Exercise and ROM ankle pumps, left;ankle pumps, right;gluteal sets;heelslides, left;heel slides, right;knee flexion-extension, left;knee flexion-extension, right;quad sets, left Exercise Type (Therapeutic Exercise) AAROM (active assistive range of motion);AROM (active range ofmotion);isometric contraction, static Position (Therapeutic Exercise) supine Sets/Reps (Therapeutic Exercise) 10 [facility] Name 11/09/241699 IP AM-PAC BASIC MOBILITY [...] (G8978) CK T-Scale Score (No Stairs) 43.03 [facility] 03/03/25 1700 Coping Observed Emotional State cooperative;anxious [...] left;rolling to right;scooting;sit to supine/supine to sit [place] Level/Cues Needed (Bed Mobility Goal 1, PT) independent Assitive Devices (Bed Mobility Goal 1, PT) none Time Frame (Bed Mobility Goal 1, PT) 2 days Row Name 11/09/24 170 Transfer Goal 1 (PT) Activity (Transfer Goal 1, PT) ggw-iv-nlgxu/axpfs-ts-nvq;knr-jx-wklqx/rdkxx-rt-iub [place] Level/Cues Needed (Transfer Goal 1, PT) contact guard assist Assitive Devices (Transfer Goal 1, PT) walker, rolling Time Frame (Transfer Goal 1, PT) 2 days Row Name 11/09/24 1700 Gait Training Goal 1 (PT) Activity (Gait Training Goal 1, PT) gait (walking locomotion);diminish gait deviation;forward stepping;improve balance and speed;increase endurance/gait distance;normalize weight shifts [place] Level (Gait Training Goal 1, PT) contact guard assist Assistive Devices (Gait Training Goal 1, PT) walker, rolling;gait belt Distance (Gait Goal 1, PT) 100 ft Time Frame (Gait Training Goal 1, PT) 3 days Row Name 11/09/24 1700 Stairs Goal 1 (PT) Activity (Stairs Goal 1, PT) ascending stairs;descending stairs;using handrail, left;shky-vo-azkd [place] Level/Cues Needed (Stairs Goal 1, PT) supervision required Assistive Devices (Stairs Goal 1, PT) handrail;cane, straight Number of Stairs (Stairs Goal 1, PT) 4 Time Frame (Stairs Goal 1, PT) 3 days Row Name 11/09/24 1700 Long-Term Goal (PT) Statement (Briar Wood Sorter Goal, PT) Return to PLOF [place] Level (Long-Term Goal, PT) modified independence Time Frame (Briar Wood Sorter Goal, PT) 2 weeks Maliha Banuelos, PT Licensure: [place], [place]: [id number] * Plan of Care - Janeth Elizabeth [...] : 1945 Operative Date: 11/09/2024 Medical Record: [id number] Preop Diagnosis: 1. 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 Arthroplasty, Knee, Condyle & Plateau; Medial & Lateral Compartments (08848) 2. Manipulation of Knee Joint under General Anesthesia (Includes Application of Traction or Other Fixation Devices) (84771) Surgeon: Saqib Santos M.D. Director Of Anesthesia Services: Anesthesia: Spinal with Regional Block Indications: 78y/o [...] of the femur by using the universal national flatbed truck driver. We found the location for the IM drill hole approximate 1 cm anteriorto the femoral attachment of the posterior cruciate ligament is slightly medial to the midline of the distal femur. We then attached the T-handled national flatbed truck driver to the 516s IM devin [...] 3:45 PM EDT Telehealth [facility] AT [address] [facility] [address] [place] [address] Saqib Santos J.P., MD [address] [place] [id number] documented as of this encounter Procedures * Due to [place] [employer] law, this organization might not be sharing negative HIV tests. Procedure Name Priority Date/Time Associated Diagnosis Comments CBC AUTO DIFFERENTIAL Routine 11/10/2024 10:17 AM EST BASIC METABOLIC PANEL Routine 11/10/2024 10:17 AM EST XR KNEE 1 OR 2 VW LEFT Routine 11/09/2024 1:17 PM EST TISSUE EXAM Routine 11/09/2024 10:55 AM EST Primary osteoarthritis of left knee OK TOTAL KNEE ARTHROPLASTY 11/09/2024 9:44 AM EST Primary osteoarthritis of left knee Special Needs OSTEONICS/CHRISTIE documented in this encounter Results * Due to [place] [employer] law, this organization might not be sharing negative HIV tests. * (ABNORMAL) CBC Auto Differential (11/10/2024 10:17 AM EST) WBC 10.2 3.8 - 10.8 10*3/uL 11/10/2024 11:23 AM [facility] RBC 3.78(L) 3.80 - 5.10 10*6/uL 11/10/2024 11:23 AM [facility] Hemoglobin 11.1(L) 11.7 - 15.5 g/dL 11/10/2024 11:23 AM [facility] Hematocrit 34.6(L) 35.0 - 45.0 % 11/10/2024 11:23 AM [facility] MCV 91.5 80.0 - 100.0 fL 11/10/2024 11:23 AM [facility] MCH 29.4 27.0 - 33.0 pg 11/10/2024 11:23 AM [facility] MCHC 32.1 32.0 - 36.0 g/dL 11/10/2024 11:23 AM [facility] RDW 14.0 11.0 - 15.0 % 11/10/2024 11:23 AM [facility] Platelets 183 140 - 400 10*3/uL 11/10/2024 11:23 AM [facility] MPV 9.6 7.5 - 12.5 fL 11/10/2024 11:23 AM [facility] Neutrophil % 87.7 % 11/10/2024 11:23 AM [facility] Immature Grans % 0.4 0.0 - 0.9 % 11/10/2024 11:23 AM [facility] Lymphocyte % 5.6 % 11/10/2024 11:23 AM [facility] Monocyte % 6.2 % 11/10/2024 11:23 AM [facility] Eosinophil % 0.0 % 11/10/2024 11:23 AM EST [facility] Basophil % 0.1 % 11/10/2024 11:23 AM EST [facility] Neutrophil # 8.90(H) 1.50 - 7.80 10*3/uL 11/10/2024 11:23 AM EST [facility] Immature Grans # 0.04(H) <=0.03 10*3/uL 11/10/2024 11:23 AM EST [facility] Lymphocyte # 0.60(L) 0.85 - 3.90 10*3/uL 11/10/2024 11:23 AM EST [facility] Monocyte # 0.60 0.20 - 0.95 10*3/uL 11/10/2024 11:23 AM EST [facility] Eosinophil # <0.03 0.02 - 0.50 10*3/uL 11/10/2024 11:23 AM EST [facility] Basophil # <0.03 0.00 - 0.20 10*3/uL 11/10/2024 11:23 AM [facility] nRBC % 0.0 /100 WBCs 11/10/2024 11:23 AM [facility] nRBC # <0.01 <0.01 10*3/uL 11/10/2024 11:23 AM [facility] Blood Structure of peripheral vein / Unknown Venipuncture / Unknown 11/10/2024 10:17 AM EST 11/10/2024 10:32 AM EST us Saqib Santos MD LAB BLOOD ORDERABLES Final R esult [facility] [address] [place] [address], [place] * (ABNORMAL) Basic Metabolic Panel (11/10/2024 10:17 AM EST) NA 135 135 - 145 mmol/L 11/10/2024 11:10 AM [facility] K 4.7 3.5 - 5.3 mmol/L 11/10/2024 11:10 AM [facility] Cl 100 98 - 107 mmol/L 11/10/2024 11:10 AM [facility] CO2 25 22 - 32 mmol/L 11/10/2024 11:10 AM [facility] BUN 17 7 - 23 mg/dL 11/10/2024 11:10 AM [facility] Creatinine 1.13 0.50 - 1.20 mg/dL 11/10/2024 11:10 AM [facility] Glucose 256(H) 65 - 99 mg/dL 11/10/2024 11:10 AM [facility] Calcium 8.7 8.6 - 10.5 mg/dL 11/10/2024 11:10 AM [facility] Anion Gap 10 5 - 15 11/10/2024 11:10 AM [facility] eGFR 50(L) >=60 mL/min/1. 73m2 11/10/2024 11:10 AM [facility] Comment:The estimated glomer ular filtration rate [...] ORDERABLES Final R esult Performing Organization Address City/State/[facility] Co de Phone Number [facility] [address] [place] [address], [place] * X-Ray Knee Left 1 or [...] obtain the completed interpretation. ? Workstation ID: [id number] Narrative 11/09/2024 2:58 PM EST COMPARISON: ??06/04/2024. ?? FINDINGS AND Resulting Agency Comment [id number] Procedure Note Marlena Lakhani MD - 11/09/2024 [...] possible to obtain thecompleted interpretation. Workstation ID: [id number] Saqib Santos MD IMG XR PROCEDURES Final Resu lt * Tissue Exam (11/09/2024 10:55 AM EST) Final Diagnosis Bone and Tissue, Left Knee: - Osteoarthritis with osteophyte formation and bony eburnation. [facility] 11/16/2024 12:54 PM EDT [facility] Lexim [facility] at 1254 EDT Clinical History Pre-op diagnosis: Primary osteoarthritis of left knee [M17.12] [facility] 11/16/2024 12:54 PM EDT [facility] Lexim [facility] Gross Description 1. Knee, [...] osteophyte formation. The margins are flat. A hospital sales representative section is submitted in cassette 1A after fixation and decalcification. [facility] 11/16/2024 12:54 PM EDT [facility] infoBizz [facility] Gross Description User Grossing complete by Patel Sutherland on 11/09/2024 3:23 PM [facility] 11/16/2024 12:54 PM EDT [facility] [employer] [facility] Embedded Images [facility] 11/16/2024 12:54 PM EDT [facility] [employer]izz [facility] Resulting Agency Case was signed out at [facility], Department of Pathology, [employer] 3 CLIA [id number] [facility]UAL 11/16/2024 12:54 PM EDT [facility] [employer] [facility] Report Header Surgical Pathology Report ? Case: [id number] ? Authorizing Provider: ??Saqib Santos MD ? Collected: ? 11/09/2024 1055 ? [facility]Received: ?11/09/2024 1308 ? [facility] ? Surgery ? Pathologist: ? Campos [...] [facility] [address] [place] [phone], documented in this encounter Visit Diagnoses Diagnosis [...] Discontinued 44 (Given - Provider: Ashok Welch RN)1956 (Given - Provider: Arnold King, STACEY) 2208 [...] Ashok Welch RN)0845 (Given - Provider: Ladonna Verma, STACEY)1957 (Given - Provider: Arnold King, STACEY) 0835 (Given - Provider: Jordyn Fitzgerald RN)2356 (Given - Provider: Kevin Dominguez, STACEY) diphenhydrAMINE (BENADRYL) capsule 25 mg 25 mg, oral, Every 6 hours PRN, itching, Starting on Sat11/09/24 at 1201, Until Sat11/12/24 at 1820 0846 (Given - Provider: Jordyn [...] administration. documented in this encounter Care Teams Corporate Travel Agent Relationship Specialty Start Date End Date Chen [address] [place] [address] PCP - General Internal Medicine 05/01/24 documented as of this encounter
--- OUTSIDE RECORDS SUMMARY | 2024-12-03 15:39 | XMS_ITS | Encounter Summary ---
Author Organization [facility] Address [address] [place] [address] Care Team Providers Care Metal Trimmer Name Role Phone Chen Pop Primary Care Provider Encounter Details Date Type Department Care Team (Late st Contact Info) Description 07/06/2024 myChart Message Initial Department [address] [place] [address] Mychart, Generic Provider [address] [place] [address] Questionnaire Submission Social History Tobacco Use [...] PM EDT Telehealth CC [facility] AT [address] [facility] [address] [place] [address] Saqib Santos J.P., MD [address] [place] [address] documented as of this encounter Visit Diagnoses Not on filedocumented in this encounter Care Teams Metal Trimmer Relationship Specialty Start Date End Date Chen Pop [address] [place] [address] PCP - General Internal Medicine 05/01/24 documented as of this encounter
--- OUTSIDE RECORDS SUMMARY | 2024-12-03 15:39 | XMS_ITS | Encounter Summary ---
Author Organization [facility] Address [address] [place] [address] Care Team Providers Care Airset Caster Name Role Phone Chen Pop Primary Care Provider [phone] Encounter Details Date Type Department Care Team (Late st Contact Info) Description 07/06/2024 myChart Message Initial Department [address] [place] [phone] Mychart, Generic Provider [address] [place] [address] Questionnaire Submission Social History Tobacco Use [...] PM EDT Telehealth CC [facility] AT [address] [facility] [address] [place] [address] Saqib Santos J.P., MD [address] [place] [address] documented as of this encounter Visit Diagnoses Not on filedocumented in this encounter Care Teams Airset Caster Relationship Specialty Start Date End Date Chen Pop [address] [place] [address] PCP - General Internal Medicine 05/01/24 documented as of this encounter
--- OUTSIDE RECORDS SUMMARY | 2024-12-03 15:39 | XMS_ITS | Encounter Summary ---
Author Organization [facility] Address [address] [place] [address] Care Team Providers Care Golf Superintendent Name Role Phone Lorraine Popanna Primary Care Provider Encounter Details Date Type Department Care Team (Late st Contact Info) Description 10/27/2024 Mandelbrot Project Message Initial Department [address] [place] [address] Mychart, Generic Provider [facility] [place] [address] Questionnaire Submission Social History Tobacco [...] 3:45 PM EDT Telehealth CC [facility] AT [address] [facility] [address] [place] [address] Saqib Santos J.P., MD [address] [place] [address] documented as of this encounter Visit Diagnoses Not on filedocumented in this encounter Care Teams Golf Superintendent Relationship Specialty Start Date End Date Chen Pop [address] [place] [address] PCP - General Internal Medicine 05/01/24 documented as of this encounter
--- OUTSIDE RECORDS SUMMARY | 2024-12-03 15:39 | XMS_ITS | Encounter Summary ---
Author Organization [facility] Address [address] [place] [address] Care Team Providers Care Groover And Turner Name Role Phone Lorraine Popanna Primary Care Provider [phone] Encounter Details Date Type Department Care Team (Late st Contact Info) Description 10/27/2024 Volly Message Initial Department [address] [place] [address] Mychart, Generic Provider [facility] [place] [address] Questionnaire Submission Social History Tobacco [...] 3:45 PM EDT Telehealth CC [facility] AT [address] [facility] [address] [place] [address] Saqib Santos J.P., MD [address] [place] [address] documented as of this encounter Visit Diagnoses Not on filedocumented in this encounter Care Teams Groover And Turner Relationship Specialty Start Date End Date Chen Pop [address] [place] [address] PCP - General Internal Medicine 05/01/24 documented as of this encounter
== END 2024-12-03 12:27 | disposition home or self-care (01) ==
LOC: HO.MAMMO 12:26
PROVIDERS: PCP Internal Medicine; Visit Provider Internal Medicine
DX: Z12.31 Encounter for screening mammogram for malignant neoplasm of breast (principal)
CPT/HCPCS: 77063; 77067

== ENCOUNTER → 2024-12-03 12:30 | Outpatient (BNV) | payer MEDICARE, OTHER, SELFPAY | PROVIDERS: PCP Internal Medicine; Visit Provider Internal Medicine | DX: Z12.31 Encounter for screening mammogram for malignant neoplasm of breast (principal) | CPT/HCPCS: 77063; 77067 ==

== ENCOUNTER → 2024-12-11 23:59 | Outpatient (BNV) | payer MEDICARE, OTHER, SELFPAY | PROVIDERS: PCP Internal Medicine; Visit Provider Internal Medicine | DX: I10 Essential (primary) hypertension (principal); F41.9 Anxiety disorder, unspecified; F32.A Depression, unspecified | CPT/HCPCS: G0180 ==

== ENCOUNTER 2025-01-11 12:28 | Outpatient (REF) | payer MEDICARE, OTHER, SELFPAY ==
--- OUTSIDE RECORDS SUMMARY | 2025-01-11 15:23 | XMS_ITS | Clinical Summary ---
Author Organization [address] Address [address] [place] [address] Phone Care Team Providers Care Glycerin Supervisor Name Role Phone Judy Mack MD Primary [...] mmol/L LAB CHEMISTRY METHOD 07/31/2024 8:55 AM [facility] Potassium 4.4 3.5 - 5.5 mmol/L LAB CHEMISTRY METHOD 07/31/2024 8:55 AM [facility] Chloride 107 96 - 110 mmol/L LAB CHEMISTRY METHOD 07/31/2024 8:55 AM [facility] CO2 30 21 - 32 mmol/L LAB CHEMISTRY METHOD 07/31/2024 8:55 AM [facility] Anion Gap 4 3 - 11 LAB CHEMISTRY METHOD 07/31/2024 8:55 AM [facility] Glucose 82 70 - 100 mg/dL LAB CHEMISTRY METHOD 07/31/2024 8:55 AM [facility] BUN 20 5 - 25 mg/dL LAB CHEMISTRY METHOD 07/31/2024 8:55 AM [facility] Creatinine 0.92 0.50 - 1.10 mg/dL LAB CHEMISTRY METHOD 07/31/2024 8:55 AM [facility] eGFR 64 >=60 mL/min/1. 73m2 LAB CHEMISTRY METHOD 07/31/2024 8:55 AM [facility] Comment:Calculation based on the??Chronic Kidney Disease Epidemiology Collaboration (CKD-EPI) equation refit??without adjustment for race. BUN/Creatinine Ratio 21.7 LAB CHEMISTRY METHOD 07/31/2024 8:55 AM [facility] Calcium 8.4(L) 8.5 - 10.5 mg/dL LAB CHEMISTRY METHOD 07/31/2024 8:55 AM [facility] Blood Venous blood specimen / Unknown Venipuncture / Unknown 07/31/2024 4:39 AM EST 07/31/2024 7:14 AM EST us Brian Avalos MD LAB BLOOD ORDERABLES Final Res ult [facility] [address] [place] [address], from Last 3 Months or Most Recently Relevant to Health Maintenance Care Teams Glycerin Supervisor Relationship Specialty Start Date End Date Judy Mack MD [address] [facility] [address] [place] [phone] PCP - General Internal Medicine 06/25/17
--- OUTSIDE RECORDS SUMMARY | 2025-01-11 15:23 | XMS_ITS | Encounter Summary ---
Author Organization [facility] Address [address] [place] [address] Care Team Providers Care Tack Cutter Name Role Phone Chen Pop Primary Care Provider [phone] Encounter Details Date Type Department Care Team (Late st Contact Info) Description 07/06/2024 [employer] Message Intial Department [address] [place] [address] Mychart, Generic Provider [address] [place] [address] Questionnaire Submission Social History Tobacco Use [...] PM EDT Follow-Up CC [facility] AT [address] [facility] [address] [place] [address] Saqib Santos J.P., MD [address] [place] [address] documented as of this encounter Visit Diagnoses Not on filedocumented in this encounter Care Teams Tack Cutter Relationship Specialty Start Date End Date Chen Pop [address] [place] [address] PCP - General Internal Medicine 05/01/24 documented as of this encounter
--- OUTSIDE RECORDS SUMMARY | 2025-01-11 15:23 | XMS_ITS | Encounter Summary ---
Author Organization [facility] Address [address] [place] [address] Care Team Providers Care Carpenter Bridge Name Role Phone Chen Pop Primary Care Provider [phone] Encounter Details Date Type Department Care Team (Late st Contact Info) Description 07/06/2024 [email or web address] Message Intial Department [address] [place] [address] Mychart, Generic Provider [address] [place] [address] Questionnaire Submission Social History Tobacco Use [...] PM EDT Follow-Up CC [facility] AT [address] [facility] [address] [place] [address] Saqib Santos J.P., MD [address] [place] [address] documented as of this encounter Visit Diagnoses Not on filedocumented in this encounter Care Teams Carpenter Bridge Relationship Specialty Start Date End Date Chen Pop [address] [place] [address] PCP - General Internal Medicine 05/01/24 documented as of this encounter
--- OUTSIDE RECORDS SUMMARY | 2025-01-11 15:23 | XMS_ITS | Encounter Summary ---
Author Organization [facility] Address [address] [place] [address] Care Team Providers Care Ice Scraper Name Role Phone Judy Mack MD Primary Care Provider Encounter Details Date Type Department Care Team (Late st Contact Info) Description 07/31/2024 Lab Requisition [facility] - Main Lab [address] [facility] [place] [address] Brian Avalos MD [address] [place] [address] Encounter for other general examination Social History [...] AM EST) WBC 4.7(L) 4.8 - 10.8 K/[facility] LAB HEMETOLOGY METHOD 07/31/2024 8:37 AM [facility] LAB RBC 2.90(L) 3.80 - 4.80 M/[facility] LAB HEMETOLOGY METHOD 07/31/2024 8:37 AM [facility] LAB Hemoglobin 9.0(L) 11.5 - 16.0 g/dL LAB HEMETOLOGY METHOD 07/31/2024 8:37 AM [facility] LAB Hematocrit 29.1(L) 35.0 - 47.0 % LAB HEMETOLOGY METHOD 07/31/2024 8:37 AM [facility] LAB MCV 101.4(H) 79.0 - 98.0 FL LAB HEMETOLOGY METHOD 07/31/2024 8:37 AM [facility] LAB MCH 31.4 27.0 - 32.0 pcg LAB HEMETOLOGY METHOD 07/31/2024 8:37 AM [facility] LAB MCHC 30.9(L) 32.0 - 37.0 g/dL LAB HEMETOLOGY METHOD 07/31/2024 8:37 AM [facility] LAB RDW 14.1 11.0 - 15.0 % LAB HEMETOLOGY METHOD 07/31/2024 8:37 AM [facility] LAB Platelets 299 130 - 400 K/[facility] LAB HEMETOLOGY METHOD 07/31/2024 8:37 AM [facility] LAB MPV 10.4 7.0 - 11.0 FL LAB HEMETOLOGY METHOD 07/31/2024 8:37 AM [facility] LAB NRBC 0.0 <1.0 % LAB HEMETOLOGY METHOD 07/31/2024 8:37 AM [facility] LAB NRBC Absolute 0.00 <0.10 K/[facility] LAB HEMETOLOGY METHOD 07/31/2024 8:37 AM [facility] LAB Neutrophils Relative 59.5 % LAB HEMETOLOGY METHOD 07/31/2024 8:37 AM [facility] LAB Lymphocytes Relative 25.3 % LAB HEMETOLOGY METHOD 07/31/2024 8:37 AM [facility] LAB Monocytes Relative 11.8 % LAB HEMETOLOGY METHOD 07/31/2024 8:37 AM [facility] LAB Eosinophils Relative 1.7 % LAB HEMETOLOGY METHOD 07/31/2024 8:37 AM [facility] LAB Basophils Relative 0.6 % LAB HEMETOLOGY METHOD 07/31/2024 8:37 AM [facility] LAB Immature Granulocytes Relative 1.1 % LAB HEMETOLOGY METHOD 07/31/2024 8:37 AM [facility] LAB Neutrophils Absolute 2.82 1.50 - 7.00 K/mcL LAB HEMETOLOGY METHOD 07/31/2024 8:37 AM [facility] LAB Lymphocytes Absolute 1.20 1.00 - 5.00 K/mcL LAB HEMETOLOGY METHOD 07/31/2024 8:37 AM [facility] LAB Monocytes Absolute 0.56 0.20 - 1.00 K/mcL LAB HEMETOLOGY METHOD 07/31/2024 8:37 AM [facility] LAB Eosinophils Absolute 0.08 0.00 - 0.50 K/mcL LAB HEMETOLOGY METHOD 07/31/2024 8:37 AM [facility] LAB Basophils Absolute 0.03 0.00 - 0.20 K/mcL LAB HEMETOLOGY METHOD 07/31/2024 8:37 AM [facility] LAB Immature Granulocytes Absolute 0.05(H) 0.00 - 0.03 K/mcL LAB HEMETOLOGY METHOD 07/31/2024 8:37 AM [facility] LAB Blood Venous blood specimen / Unknown Venipuncture / Unknown 07/31/2024 4:39 AM EST 07/31/2024 7:14 AM EST us Brian Avalos MD LAB BLOOD ORDERABLES Final Res ult [facility] [address] [place] [address], [place] [phone] * (ABNORMAL) Basic metabolic panel (07/31/2024 4:39 AM EST) Sodium 141 133 - 145 mmol/L LAB CHEMISTRY METHOD 07/31/2024 8:55 AM EST [facility] Potassium 4.4 3.5 - 5.5 mmol/L LAB CHEMISTRY METHOD 07/31/2024 8:55 AM [facility] LAB Chloride 107 96 - 110 mmol/L LAB CHEMISTRY METHOD 07/31/2024 8:55 AM [facility] LAB CO2 30 21 - 32 mmol/L LAB CHEMISTRY METHOD 07/31/2024 8:55 AM [facility] LAB Anion Gap 4 3 - 11 LAB CHEMISTRY METHOD 07/31/2024 8:55 AM [facility] LAB Glucose 82 70 - 100 mg/dL LAB CHEMISTRY METHOD 07/31/2024 8:55 AM [facility] LAB BUN 20 5 - 25 mg/dL LAB CHEMISTRY METHOD 07/31/2024 8:55 AM [facility] LAB Creatinine 0.92 0.50 - 1.10 mg/dL LAB CHEMISTRY METHOD 07/31/2024 8:55 AM [facility] LAB eGFR 64 >=60 mL/min/1. 73m2 LAB CHEMISTRY METHOD 07/31/2024 8:55 AM [facility] LAB Comment:Calculation based on the??Chronic Kidney Disease Epidemiology Collaboration (CKD-EPI) equation refit??without adjustment for race. BUN/Creatinine Ratio 21.7 LAB CHEMISTRY METHOD 07/31/2024 8:55 AM [facility] LAB Calcium 8.4(L) 8.5 - 10.5 mg/dL LAB CHEMISTRY METHOD 07/31/2024 8:55 AM EST [facility] Blood Venous blood specimen / Unknown Venipuncture / Unknown 07/31/2024 4:39 AM EST 07/31/2024 7:14 AM EST us Brian Avalos MD LAB BLOOD ORDERABLES Final Res ult [facility] [address] [place] [address], documented in this encounter Visit Diagnoses Diagnosis Encounter for other general examination documented in this encounter Care Teams Ice Scraper Relationship Specialty Start Date End Date Judy Mack MD [address] [facility] [address] [place] [address] PCP - General Internal Medicine 06/25/17 documented as of this encounter
--- OUTSIDE RECORDS SUMMARY | 2025-01-11 15:23 | XMS_ITS | Encounter Summary ---
Author Organization [facility] Address [address] [place] [address] Care Team Providers Care Greenskeeper Supervisor Name Role Phone Chen Pop Primary Care Provider [phone] Encounter Details Date Type Department Care Team (Late st Contact Info) Description 07/06/2024 [employer] Message Intial Department [address] [place] [phone] Mychart, Generic Provider [address] [place] [address] Questionnaire Submission Social History Tobacco Use [...] PM EDT Follow-Up CC [facility] AT [address] [facility] [address] [place] [address] Saqib Santos J.P., MD [address] [place] [address] documented as of this encounter Visit Diagnoses Not on filedocumented in this encounter Care Teams Greenskeeper Supervisor Relationship Specialty Start Date End Date Chen Pop [address] [place] [address] PCP - General Internal Medicine 05/01/24 documented as of this encounter
--- OUTSIDE RECORDS SUMMARY | 2025-01-11 15:23 | XMS_ITS | Encounter Summary ---
Author Organization [facility] Address [address] [place] [address] Care Team Providers Care Abalone Fisherman Name Role Phone Chen Pop Primary Care Provider [phone] Encounter Details Date Type Department Care Team (Late st Contact Info) Description 07/06/2024 [employer] Message Intial Department [address] [place] [address] Mychart, Generic Provider [address] [place] [address] Questionnaire Submission Social History Tobacco Use [...] PM EDT Follow-Up CC [facility] AT [address] [facility] [address] [place] [address] Saqib Santos J.P., MD [address] [place] [address] documented as of this encounter Visit Diagnoses Not on filedocumented in this encounter Care Teams Abalone Fisherman Relationship Specialty Start Date End Date Chen Pop [address] [place] [address] PCP - General Internal Medicine 05/01/24 documented as of this encounter
--- OUTSIDE RECORDS SUMMARY | 2025-01-11 15:23 | XMS_ITS | Encounter Summary ---
Author Organization [facility] Address [address] [place] [address] Care Team Providers Care Cotton Roll Packer Name Role Phone Judy Mack MD Primary Care Provider [phone] Encounter Details Date Type Department Care Team (Late st Contact Info) Description 07/29/2024 Lab Requisition [facility] - Main Lab [address] [place] [address] Brian Avlaos MD [address] [place] [address] Other specified arthritis, unspecified site Social History [...] AM EST) WBC 5.3 4.8 - 10.8 K/[facility] LAB HEMETOLOGY METHOD 07/29/2024 9:24 AM [facility] LAB RBC 2.90(L) 3.80 - 4.80 M/mcL LAB HEMETOLOGY METHOD 07/29/2024 9:24 AM [facility] LAB Hemoglobin 9.2(L) 11.5 - 16.0 g/dL LAB HEMETOLOGY METHOD 07/29/2024 9:24 AM [facility] LAB Hematocrit 29.5(L) 35.0 - 47.0 % LAB HEMETOLOGY METHOD 07/29/2024 9:24 AM [facility] LAB MCV 100.7(H) 79.0 - 98.0 FL LAB HEMETOLOGY METHOD 07/29/2024 9:24 AM [facility] LAB MCH 31.4 27.0 - 32.0 pcg LAB HEMETOLOGY METHOD 07/29/2024 9:24 AM [facility] LAB MCHC 31.2(L) 32.0 - 37.0 g/dL LAB HEMETOLOGY METHOD 07/29/2024 9:24 AM [facility] LAB RDW 14.3 11.0 - 15.0 % LAB HEMETOLOGY METHOD 07/29/2024 9:24 AM [facility] LAB Platelets 226 130 - 400 K/mcL LAB HEMETOLOGY METHOD 07/29/2024 9:24 AM [facility] LAB MPV 10.7 7.0 - 11.0 FL LAB HEMETOLOGY METHOD 07/29/2024 9:24 AM [facility] LAB NRBC 0.0 <1.0 % LAB HEMETOLOGY METHOD 07/29/2024 9:24 AM [facility] LAB NRBC Absolute 0.00 <0.10 K/mcL LAB HEMETOLOGY METHOD 07/29/2024 9:24 AM [facility] Blood Venous blood specimen / Unknown Venipuncture / Unknown 07/29/2024 5:32 AM EST 07/29/2024 8:28 AM EST us Brian Avalos MD LAB BLOOD ORDERABLES Final Res ult [facility] [address] [place] [address], [place] [phone] * (ABNORMAL) Comprehensive metabolic panel (07/29/2024 5:32 AM EST) Sodium 141 133 - 145 mmol/L LAB CHEMISTRY METHOD 07/29/2024 10:01 AM [facility] Potassium 4.2 3.5 - 5.5 mmol/L LAB CHEMISTRY METHOD 07/29/2024 10:01 AM [facility] Chloride 104 96 - 110 mmol/L LAB CHEMISTRY METHOD 07/29/2024 10:01 AM [facility] LAB CO2 31 21 - 32 mmol/L LAB CHEMISTRY METHOD 07/29/2024 10:01 AM [facility] LAB Anion Gap 6 3 - 11 LAB CHEMISTRY METHOD 07/29/2024 10:01 AM [facility] LAB Glucose 91 70 - 100 mg/dL LAB CHEMISTRY METHOD 07/29/2024 10:01 AM [facility] BUN 22 5 - 25 mg/dL LAB CHEMISTRY METHOD 07/29/2024 10:01 AM [facility] LAB Creatinine 0.87 0.50 - 1.10 mg/dL LAB CHEMISTRY METHOD 07/29/2024 10:01 AM [facility] LAB eGFR 69 >=60 mL/min/1. 73m2 LAB CHEMISTRY METHOD 07/29/2024 10:01 AM [facility] LAB Comment:Calculation based on the??Chronic Kidney Disease Epidemiology Collaboration (CKD-EPI) equation refit??without adjustment for race. BUN/Creatinine Ratio 25.3 LAB CHEMISTRY METHOD 07/29/2024 10:01 AM [facility] LAB Calcium 8.8 8.5 - 10.5 mg/dL LAB CHEMISTRY METHOD 07/29/2024 10:01 AM [facility] AST (SGOT) 18 10 - 42 unit/L LAB CHEMISTRY METHOD 07/29/2024 10:01 AM [facility] ALT (SGPT) 14 10 - 60 unit/L LAB CHEMISTRY METHOD 07/29/2024 10:01 AM [facility] Alkaline Phosphatase 59 42 - 121 unit/L LAB CHEMISTRY METHOD 07/29/2024 10:01 AM [facility] Total Protein 5.2(L) 6.0 - 8.0 g/dL LAB CHEMISTRY METHOD 07/29/2024 10:01 AM [facility] Albumin 2.3(L) 3.2 - 5.0 g/dL LAB CHEMISTRY METHOD 07/29/2024 10:01 AM [facility] Total Bilirubin 0.5 0.0 - 1.4 mg/dL LAB CHEMISTRY METHOD 07/29/2024 10:01 AM [facility] Blood Venous blood specimen / Unknown Venipuncture / Unknown 07/29/2024 5:32 AM EST 07/29/2024 8:28 AM EST us Brian Avalos MD LAB BLOOD ORDERABLES Final Res ult [facility] [address] [place] [address], documented in this encounter Visit Diagnoses Diagnosis Other specified arthritis, unspecified site documented in this encounter Care Teams Cotton Roll Packer Relationship Specialty Start Date End Date Judy Mack MD [address] [facility] [address] [place] [address] PCP - General Internal Medicine 06/25/17 documented as of this encounter
--- OUTSIDE RECORDS SUMMARY | 2025-01-11 15:23 | XMS_ITS | Encounter Summary ---
Author Organization [facility] Address [address] [place] [address] Care Team Providers Care Jewelsmith Name Role Phone Chen Pop Primary Care Provider [phone] Encounter Details Date Type Department Care Team (Late st Contact Info) Description 07/06/2024 [employer] Message Intial Department [address] [place] [address] Mychart, Generic Provider [address] [place] [address] Questionnaire Submission Social History Tobacco Use [...] PM EDT Follow-Up CC [facility] AT [address] [facility] [address] [place] [address] Saqib Santos J.P., MD [address] [place] [address] documented as of this encounter Visit Diagnoses Not on filedocumented in this encounter Care Teams Jewelsmith Relationship Specialty Start Date End Date Chen Pop [address] [place] [address] PCP - General Internal Medicine 05/01/24 documented as of this encounter
--- OUTSIDE RECORDS SUMMARY | 2025-01-11 15:23 | XMS_ITS | Encounter Summary ---
Author Organization [facility] Address [address] [place] [address] Care Team Providers Care Kitchen Steward Name Role Phone Chen Pop Primary Care Provider [phone] Encounter Details Date Type Department Care Team (Late st Contact Info) Description 07/06/2024 [employer] Message Intial Department [address] [place] [address] Mychart, Generic Provider [address] [place] [address] Questionnaire Submission Social History Tobacco Use [...] PM EDT Follow-Up CC [facility] AT [address] [facility] [address] [place] [address] Saqib Santos J.P., MD [address] [place] [address] documented as of this encounter Visit Diagnoses Not on filedocumented in this encounter Care Teams Kitchen Steward Relationship Specialty Start Date End Date Chen Pop [address] [place] [address] PCP - General Internal Medicine 05/01/24 documented as of this encounter
--- OUTSIDE RECORDS SUMMARY | 2025-01-11 15:24 | XMS_ITS | Encounter Summary ---
Author Organization [facility] Address [address] [place] [address] Care Team Providers Care Pyrotechnics Press Tender Name Role Phone Lorraine Popanna Primary Care Provider [phone] Encounter Details Date Type Department Care Team (Late st Contact Info) Description 10/26/2024 [employer] Message [facility] [address] [place] [address] [phone] [employer], [facility] Provider [place] [address] Questionnaire due soon Social History [...] [facility] AT [address] [facility] [address] [place] [address] Saqib Santos J.P., MD [address] [place] [address] documented as of this encounter Visit Diagnoses Not on filedocumented in this encounter Care Teams Pyrotechnics Press Tender Relationship Specialty Start Date End Date Chen Pop [address] [place] [address] PCP - General Internal Medicine 05/01/24 documented as of this encounter
--- OUTSIDE RECORDS SUMMARY | 2025-01-11 15:24 | XMS_ITS | Encounter Summary ---
Author Organization [facility] Address [address] [place] [address] Care Team Providers Care Manager Configuration Name Role Phone CarolinajoseriazChen Primary Care Provider [phone] Encounter Details Date Type Department Care Team (Late st Contact Info) Description 10/27/2024 [employer] Message Intial Department [address] [place] [phone] Mychart, Generic Provider [facility] [place] [address] Questionnaire Submission Social History Tobacco [...] PM EDT Follow-Up CC [facility] AT [address] [facility] [address] [place] [address] Saqib Santos J.P., MD [address] [place] [address] documented as of this encounter Visit Diagnoses Not on filedocumented in this encounter Care Teams Manager Configuration Relationship Specialty Start Date End Date Chen Pop [facility] [place] [address] PCP - General Internal Medicine 05/01/24 documented as of this encounter
--- OUTSIDE RECORDS SUMMARY | 2025-01-11 15:24 | XMS_ITS | Encounter Summary ---
Author Organization [facility] Address [address] [place] [address] Care Team Providers Care Special Warfare Combatant Crewman Name Role Phone Judy Mack MD Primary Care Provider [phone] Encounter Details Date Type Department Care Team (Late st Contact Info) Description 07/23/2024 Lab Requisition [facility] - Main Lab [address] [facility] [place] [address] Brian Avalos MD [address] [place] [address] Pain in right knee Social History Tobacco [...] CBC auto differential (07/23/2024 7:18 AM EST) [facility] WBC 7.5 4.8 - 10.8 K/mcL LAB HEMETOLOGY METHOD 07/23/2024 9:03 AM [facility] RBC 3.40(L) 3.80 - 4.80 M/mcL LAB HEMETOLOGY METHOD 07/23/2024 9:03 AM [facility] Hemoglobin 11.0(L) 11.5 - 16.0 g/dL LAB HEMETOLOGY METHOD 07/23/2024 9:03 AM [facility] Hematocrit 34.0(L) 35.0 - 47.0 % LAB HEMETOLOGY METHOD 07/23/2024 9:03 AM [facility] MCV 99.4(H) 79.0 - 98.0 FL LAB HEMETOLOGY METHOD 07/23/2024 9:03 AM [facility] MCH 32.2(H) 27.0 - 32.0 pcg LAB HEMETOLOGY METHOD 07/23/2024 9:03 AM [facility] MCHC 32.4 32.0 - 37.0 g/dL LAB HEMETOLOGY METHOD 07/23/2024 9:03 AM [facility] RDW 13.6 11.0 - 15.0 % LAB HEMETOLOGY METHOD 07/23/2024 9:03 AM [facility] Platelets 185 130 - 400 K/mcL LAB HEMETOLOGY METHOD 07/23/2024 9:03 AM [facility] MPV 10.4 7.0 - 11.0 FL LAB HEMETOLOGY METHOD 07/23/2024 9:03 AM [facility] NRBC 0.0 <1.0 % LAB HEMETOLOGY METHOD 07/23/2024 9:03 AM [facility] NRBC Absolute 0.00 <0.10 K/mcL LAB HEMETOLOGY METHOD 07/23/2024 9:03 AM [facility] Neutrophils Relative 76.7 % LAB HEMETOLOGY METHOD 07/23/2024 9:03 AM [facility] Lymphocytes Relative 10.0 % LAB HEMETOLOGY METHOD 07/23/2024 9:03 AM [facility] Monocytes Relative 11.9 % LAB HEMETOLOGY METHOD 07/23/2024 9:03 AM [facility] Eosinophils Relative 0.4 % LAB HEMETOLOGY METHOD 07/23/2024 9:03 AM [facility] Basophils Relative 0.3 % LAB HEMETOLOGY METHOD 07/23/2024 9:03 AM [facility] Immature Granulocytes Relative 0.7 % LAB HEMETOLOGY METHOD 07/23/2024 9:03 AM [facility] Neutrophils Absolute 5.76 1.50 - 7.00 K/mcL LAB HEMETOLOGY METHOD 07/23/2024 9:03 AM [facility] Lymphocytes Absolute 0.75(L) 1.00 - 5.00 K/mcL LAB HEMETOLOGY METHOD 07/23/2024 9:03 AM [facility] Monocytes Absolute 0.89 0.20 - 1.00 K/mcL LAB HEMETOLOGY METHOD 07/23/2024 9:03 AM [facility] Eosinophils Absolute 0.03 0.00 - 0.50 K/mcL LAB HEMETOLOGY METHOD 07/23/2024 9:03 AM [facility] Basophils Absolute 0.02 0.00 - 0.20 K/mcL LAB HEMETOLOGY METHOD 07/23/2024 9:03 AM [facility] Immature Granulocytes Absolute 0.05(H) 0.00 - 0.03 K/mcL LAB HEMETOLOGY METHOD 07/23/2024 9:03 AM [facility] Blood Venous blood specimen / Unknown Venipuncture / Unknown 07/23/2024 7:18 AM EST 07/23/2024 8:08 AM EST Brian Avalos MD LAB BLOOD ORDERABLES Final Res ult [facility] [address] [place] [address], [place] [phone] * Magnesium (07/23/2024 7:18 AM EST) Pathologist [facility] Magnesium 2.1 1.9 - 2.6 mg/dL LAB CHEMISTRY METHOD 07/23/2024 9:38 AM EST [facility] Blood Venous blood specimen / Unknown Venipuncture / Unknown 07/23/2024 7:18 AM EST 07/23/2024 8:08 AM EST Brian Avalos MD LAB BLOOD ORDERABLES Final Res ult Performing Organization Address City/[facility]/ZIP Co de Phone Number [facility] [address] [place] [address], [place] [phone] * (ABNORMAL) Comprehensive metabolic panel (07/23/2024 7:18 AM EST) [facility] Sodium 136 133 - 145 mmol/L LAB CHEMISTRY METHOD 07/23/2024 9:38 AM [facility] Potassium 4.3 3.5 - 5.5 mmol/L LAB CHEMISTRY METHOD 07/23/2024 9:38 AM [facility] Chloride 103 96 - 110 mmol/L LAB CHEMISTRY METHOD 07/23/2024 9:38 AM EST [facility] CO2 28 21 - 32 mmol/L LAB CHEMISTRY METHOD 07/23/2024 9:38 AM [facility] Anion Gap 5 3 - 11 LAB CHEMISTRY METHOD 07/23/2024 9:38 AM EST [facility] Glucose 92 70 - 100 mg/dL LAB CHEMISTRY METHOD 07/23/2024 9:38 AM [facility] BUN 14 5 - 25 mg/dL LAB CHEMISTRY METHOD 07/23/2024 9:38 AM [facility] Creatinine 0.96 0.50 - 1.10 mg/dL LAB CHEMISTRY METHOD 07/23/2024 9:38 AM [facility] eGFR 61 >=60 mL/min/1. 73m2 LAB CHEMISTRY METHOD 07/23/2024 9:38 AM [facility] Comment:Calculation based on the??Chronic Kidney Disease Epidemiology Collaboration (CKD-EPI) equation refit??without adjustment for race. BUN/Creatinine Ratio 14.6 LAB CHEMISTRY METHOD 07/23/2024 9:38 AM [facility] Calcium 7.8(L) 8.5 - 10.5 mg/dL LAB CHEMISTRY METHOD 07/23/2024 9:38 AM [facility] AST (SGOT) 11 10 - 42 unit/L LAB CHEMISTRY METHOD 07/23/2024 9:38 AM [facility] ALT (SGPT) 11 10 - 60 unit/L LAB CHEMISTRY METHOD 07/23/2024 9:38 AM [facility] Alkaline Phosphatase 49 42 - 121 unit/L LAB CHEMISTRY METHOD 07/23/2024 9:38 AM [facility] Total Protein 5.3(L) 6.0 - 8.0 g/dL LAB CHEMISTRY METHOD 07/23/2024 9:38 AM [facility] Albumin 2.5(L) 3.2 - 5.0 g/dL LAB CHEMISTRY METHOD 07/23/2024 9:38 AM [facility] Total Bilirubin 0.4 0.0 - 1.4 mg/dL LAB CHEMISTRY METHOD 07/23/2024 9:38 AM [facility] Blood Venous blood specimen / Unknown Venipuncture / Unknown 07/23/2024 7:18 AM EST 07/23/2024 8:08 AM EST us Brian Avalos MD LAB BLOOD ORDERABLES Final Res ult [facility] [address] [place] [address], [place] [phone] documented in this encounter Visit Diagnoses Diagnosis Pain in right knee documented in this encounter Care Teams Special Warfare Combatant Crewman Relationship Specialty Start Date End Date Judy Mack MD [address] [facility] [address] [place] [address] PCP - General Internal Medicine 06/25/17 documented as of this encounter
--- OUTSIDE RECORDS SUMMARY | 2025-01-11 15:24 | XMS_ITS | Clinical Summary ---
Author Organization [facility] Address [address] [place] [address] Care Team Providers Care Product Technician Name Role Phone Chen Pop Primary Care Provider [phone] Allergies No known active allergies Medications DULoxetine [...] Type Department Care Team Description 01/11/2025 Telephone [facility] Orthopedics [address] [place] [address] Telephone Intake, Staff PAC_Patient Request Call Back_[place] 12/22/2024 Telephone [facility] [address] [address] Telephone Intake, Staff PAC General Info [place] 12/03/2024 3:45 PM EDT Telehealth CC [facility] AT [address] [facility] ORTHO [address] [place] [address] Saqib Santos J.P., MD Arthritis of left knee (Primary Dx); Arthrofibrosis of knee joint, right; History of total right knee replacement; History of total left knee replacement 11/30/2024 Telephone OR[facility]OP[facility]IC [address] [address] Saqib Santos J.P., MD 11/09/2024 9:59 AM EST Anesthesia Event [facility] Day Surgery [address] [place] [address] Jimmy Liu MD Foley, Joseph P, MD 11/09/2024 9:40 AM EST - 11/09/2024 12:25 PM EST Surgery [facility] Day Surgery [address] [place] [address] Saqib Santos J.P., MD ARTHROPLASTY, KNEE, CONDYLE AND PLATEAU; MEDIAL AND LATERAL COMPARTMENTS WITH OR WITHOUT PATELLA RESURFACING (TOTAL KNEE ARTHROPLASTY) [41717 (CPT??)] 11/09/2024 7:37 AM EST - 11/12/2024 4:10 PM EST Hospital Encounter [facility] 2 Medical Surgery Unit [address] [place] [address] Sqaib Santos J.P., MD Primary localized osteoarthritis of right knee (Primary Dx); Primary osteoarthritis of left knee Discharge Disposition: Inpatient Rehab Facility (IRF) (62) 10/29/2024 1:00 PM EST [facility] [address] [place] [address] Saqib Santos J.P., MD Arthritis of left knee (Primary Dx); Arthrofibrosis of knee joint, right 10/29/2024 Prep for Case [facility] [address] [address] Saqib Santos J.P., MD 10/27/2024 myChart Message Intial Department [address] [place] [address] Mychart, Generic Provider Questionnaire Submission 10/27/2024 myChart Message Intial Department [address] [place] [address] Mychart, Generic Provider Questionnaire Submission 10/27/2024 myChart Message Intial Department [address] [place] [address] Mychart, Generic Provider Questionnaire Submission 10/27/2024 myChart Message Intial Department [address] [place] [address] Mychart, Generic Provider Questionnaire Submission 10/26/2024 myChart Message Intial Department [address] [place] [address] Mychart, Generic Provider Questionnaire Submission 10/26/2024 myChart Message [facility] Surgery [address] [place] [address] Mychart, Generic Provider Questionnaire due soon 10/24/2024 myChart Message Intial Department [address] [place] [address] Mychart, Generic Provider Questionnaire Submission 10/24/2024 myChart Message Intial Department [address] [place] [address] Mychart, Generic Provider Questionnaire Submission 10/22/2024 myChart Message [facility] [address] [address] Mychart, Generic Provider Surgery Paperwork 10/21/2024 11:40 AM EST Follow-Up [facility] [address] [address] Saqib Santos J.P., MD Primary osteoarthritis of left knee (Primary Dx); History of total right knee replacement 10/21/2024 11:35 AM EST Ancillary Procedure [facility] [address] [address] History of total right knee replacement 10/20/2024 Telephone [facility] [address] [address] Saqib Santos J.P., MD from Last 3 [...] PM EDT Follow-Up [facility] AT [address] [facility] ORTHO [address] [place] [address] Saqib Santos J.P., MD [address] [place] [address] Health Maintenance Due Date Last Done Comments [...] this topic Medical Devices Implanted Type Area Field Installation Technician Device Identifier Shelf Expiration Date Model / Serial / Lot Patella Asymmetric Metal Backed Tritanium Size A32 [id number] Tritanium - [id number] Implanted:Qty: 1 on 07/20/2024 by Saqib Santos J.P., MD at [facility] Implant Right: Knee CHRISTIE [id number] 04/09/2029 5552-L-32 0 / / [id number] Insert Tibial Bearing Size 4 11mm Triathlon X3 - [id number] Implanted:Qty: 1 on 07/20/2024 by Saqib Santos J.P., MD at [facility] Implant Right: Knee CHRISTIE [id number] 03/27/2029 5531-G-41 1-E / / [id number] Component Femoral Knee Cruciate Retaining Right Size 4 - [id number] Implanted:Qty: 1 on 07/20/2024 by Saqib Santos J.P., MD at [facility] Implant Right: Knee CHRISTIE [id number] 04/25/2029 5517-F-40 2 / / [id number] Baseplate Tritanium Size 4 Triathlon - [id number] Implanted:Qty: 1 on 07/20/2024 by Saqib Santos J.P., MD at [facility] Implant Right: Knee CHRISTIE [id number] 03/02/2029 5536-B-40 0 / / [id number] Component Femoral Cruciate Retaining Beaded Left Size 4 Triathlon - [id number] Implanted:Qty: 1 on 11/09/2024 by Saqib Santos J.P., MD at [facility] Implant Left: Knee CHRISTIE [id number] 01/22/2029 5517-F-40 1 / / [id number] Baseplate Tritanium Size 4 Triathlon - [id number] Implanted:Qty: 1 on 11/09/2024 by Saqib Santos J.P., MD at [facility] Implant Left: Knee CHRISTIE [id number] 08/27/2029 5536-B-40 0 / / [id number] Patella Asymmetric Metal Backed Tritanium Size A32 [id number] Tritanium - [id number] Implanted:Qty: 1 on 11/09/2024 by Saqib Santos J.P., MD at [facility] Implant Left: Knee CHRISTIE [id number] 01/21/2029 5552-L-32 0 / / [id number] Tibial Bearing Insert Size 4 9mm Triathlon - [id number] Implanted:Qty: 1 on 11/09/2024 by Saqib Santos J.P., MD at [facility] Implant Left: Knee CHRISTIE [id number] 06/18/2029 5531-G-40 9-E / / [id number] Procedures * Due to [place] state law, this organization might not be sharing negative HIV tests. Procedure Name Priority Date/Time Associated Diagnosis Comments CBC AUTO DIFFERENTIAL Routine 11/10/2024 10:17 AM EST BASIC METABOLIC PANEL Routine 11/10/2024 10:17 AM EST XR KNEE 1 OR 2 VW LEFT Routine 11/09/2024 1:17 PM EST TISSUE EXAM Routine 11/09/2024 10:55 AM EST Primary osteoarthritis of left knee WV TOTAL KNEE ARTHROPLASTY 11/09/2024 9:44 AM EST Primary osteoarthritis of left knee Special Needs OSTEONICS/CHRISTIE WV AN PAIN BLOCK AT SURGEON REQUEST Routine 11/09/2024 9:40 AM EST WV AN PERIPHERAL BLOCK POST-OP PAIN Routine 11/09/2024 [...] Last 3 Months Results * Due to [place] state law, this organization might not be sharing negative HIV tests. * (ABNORMAL) CBC Auto Differential (11/10/2024 10:17 AM EST) WBC 10.2 3.8 - 10.8 10*3/uL 11/10/2024 11:23 AM EST [facility] RBC 3.78(L) 3.80 - 5.10 10*6/uL 11/10/2024 11:23 AM EST [facility] Hemoglobin 11.1(L) 11.7 - 15.5 g/dL 11/10/2024 11:23 AM EST [facility] Hematocrit 34.6(L) 35.0 - 45.0 % 11/10/2024 11:23 AM EST [facility] MCV 91.5 80.0 - 100.0 fL 11/10/2024 11:23 AM EST [facility] MCH 29.4 27.0 - 33.0 pg 11/10/2024 11:23 AM [facility] MCHC 32.1 32.0 - 36.0 g/dL 11/10/2024 11:23 AM [facility] RDW 14.0 11.0 - 15.0 % 11/10/2024 11:23 AM [facility] Platelets 183 140 - 400 10*3/uL 11/10/2024 11:23 AM [facility] MPV 9.6 7.5 - 12.5 fL 11/10/2024 11:23 AM [facility] Neutrophil % 87.7 % 11/10/2024 11:23 AM [facility] Immature Grans % 0.4 0.0 - 0.9 % 11/10/2024 11:23 AM [facility] Lymphocyte % 5.6 % 11/10/2024 11:23 AM [facility] Monocyte % 6.2 % 11/10/2024 11:23 AM [facility] Eosinophil % 0.0 % 11/10/2024 11:23 AM [facility] Basophil % 0.1 % 11/10/2024 11:23 AM [facility] Neutrophil # 8.90(H) 1.50 - 7.80 10*3/uL 11/10/2024 11:23 AM [facility] Immature Grans # 0.04(H) <=0.03 10*3/uL 11/10/2024 11:23 AM [facility] Lymphocyte # 0.60(L) 0.85 - 3.90 10*3/uL 11/10/2024 11:23 AM [facility] Monocyte # 0.60 0.20 - 0.95 10*3/uL 11/10/2024 11:23 AM EST [facility] Eosinophil # <0.03 0.02 - 0.50 10*3/uL 11/10/2024 11:23 AM EST [facility] Basophil # <0.03 0.00 - 0.20 10*3/uL 11/10/2024 11:23 AM EST [facility] nRBC % 0.0 /100 WBCs 11/10/2024 11:23 AM EST [facility] nRBC # <0.01 <0.01 10*3/uL 11/10/2024 11:23 AM EST [facility] Blood Structure of peripheral vein / Unknown Venipuncture / Unknown 11/10/2024 10:17 AM EST 11/10/2024 10:32 AM EST us Saqib Santos MD LAB BLOOD ORDERABLES Final R esult [facility] [address] [place] [address], * (ABNORMAL) Basic Metabolic Panel (11/10/2024 10:17 AM EST) Only the most recent of2 resultswithin the time period is included. NA 135 135 - 145 mmol/L 11/10/2024 11:10 AM EST [facility] K 4.7 3.5 - 5.3 mmol/L 11/10/2024 11:10 AM EST [facility] Cl 100 98 - 107 mmol/L 11/10/2024 11:10 AM EST [facility] CO2 25 22 - 32 mmol/L 11/10/2024 11:10 AM EST [facility] BUN 17 7 - 23 mg/dL 11/10/2024 11:10 AM EST [facility] Creatinine 1.13 0.50 - 1.20 mg/dL 11/10/2024 11:10 AM EST [facility] Glucose 256(H) 65 - 99 mg/dL 11/10/2024 11:10 AM EST [facility] Calcium 8.7 8.6 - 10.5 mg/dL 11/10/2024 11:10 AM EST [facility] Anion Gap 10 5 - 15 11/10/2024 11:10 AM EST [facility] eGFR 50(L) >=60 mL/min/1. 73m2 11/10/2024 11:10 AM EST [facility] Comment:The estimated glomer ular filtration rate [...] MD LAB BLOOD ORDERABLES Final R esult [facility] [address] [place] [address], * X-Ray Knee Left 1 or 2 [...] obtain the completed interpretation. ? Workstation ID: [id number] Narrative 11/09/2024 2:58 PM EST COMPARISON: ??06/04/2024. ?? FINDINGS AND Resulting Agency Comment [id number] Procedure Note Marlena Lakhani MD - 11/09/2024 [...] possible to obtain thecompleted interpretation. Workstation ID: [id number] Saqib Santos MD IMG XR PROCEDURES Final Resu lt * Tissue Exam (11/09/2024 10:55 AM EST) Final Diagnosis Bone and Tissue, Left Knee: - Osteoarthritis with osteophyte formation and bony eburnation. [facility] 11/16/2024 12:54 PM EDT [employer] [facility] at 1254 EDT Clinical History Pre-op diagnosis: Primary osteoarthritis of left knee [M17.12] [facility] 11/16/2024 12:54 PM EDT [employer] [facility] Gross Description 1. [...] osteophyte formation. The margins are flat. A medical claims representative section is submitted in cassette 1A after fixation and decalcification. [employer] MANUAL 11/16/2024 12:54 PM EDT [employer] [facility] Gross Description User Grossing complete by Patel Sutherland on 11/09/2024 3:23 PM [employer] MANUAL 11/16/2024 12:54 PM EDT [employer] [facility] Embedded Images [facility] 11/16/2024 12:54 PM EDT [employer] [facility] Resulting Agency Case was signed out at [facility], Department of Pathology, [employer] 3 CLIA [id number] [facility] MANUAL 11/16/2024 12:54 PM EDT [employer] [facility] Report Header Surgical Pathology Report ? Case: [id number] ? Authorizing Provider: ??Saqib Santos MD ? Collected: ? 11/09/2024 1055 ? Ordering Location: ? [facility]- ?Received: ?11/09/2024 1308 ? [facility] ? Surgery ? Pathologist: ? Campos Saini MD ? Specimen: ?Knee, Left, LEFT KNEE BONE AND TISSUE ? 11/16/2024 12:54 PM EDT [employer] [facility] ANATOMIC PATHOLOGY LABORATORY Bone Structure of left knee region / Unknown 11/09/2024 10:55 AM EST 11/09/2024 1:08 PM EST Comment:Pre-op diagnosis: Primary osteoarthritis of left knee [M17.12] us Saqib Santos MD LAB PATHOLOGY/CYTOLOGY ORDER DAREN Final Result [employer] [facility] ANATOMIC PATHOLOGY LABORATORY [address] [place] [address], * WV AN PERIPHERAL BLOCK POST-OP PAIN, WV AN PAIN BLOCK AT SURGEON REQUEST (11/09/2024 [...] performed Peripheral Block Ultrasound #1 Probe: Linear [id number] Patient position: supine Prep: ChloraPrep Patient monitoring: [...] aureus (MRSA) isolated. 10/31/2024 5:56 AM EST [facility] Swab Nasal structure / Unknown Non-Blood Collection / Unknown 10/29/2024 2:13 PM EST 10/29/2024 2:13 PM EST Narrative [facility] - 10/31/2024 5:56 AM EST [facility] Received Date: MICRO NUMBER: [id number] SPECIMEN QUALITY: Adequate SOURCE: SWAB NOSE STATUS: FINAL Saqib Santos MD LAB MICROBIOLOGY - GENERAL O RDERABLES Final Result [facility] [address] [facility] 3rd Floor, [place] [address], [place] [phone] [employer] [facility] [address], [place] [address], [place] [phone] * CBC (10/29/2024 2:04 PM EST) [facility] WBC 5.1 3.8 - 10.8 10*3/uL 10/29/2024 2:25 PM EST [facility] RBC 4.30 3.80 - 5.10 10*6/uL 10/29/2024 2:25 PM EST [facility] Hemoglobin 12.9 11.7 - 15.5 g/dL 10/29/2024 2:25 PM EST [facility] Hematocrit 40.0 35.0 - 45.0 % 10/29/2024 2:25 PM EST [facility] MCV 93.0 80.0 - 100.0 fL 10/29/2024 2:25 PM EST [facility] MCH 30.0 27.0 - 33.0 pg 10/29/2024 2:25 PM EST [facility] MCHC 32.3 32.0 - 36.0 g/dL 10/29/2024 2:25 PM EST [facility] RDW 13.9 11.0 - 15.0 % 10/29/2024 2:25 PM EST [facility] Platelets 277 140 - 400 10*3/uL 10/29/2024 2:25 PM EST [facility] MPV 9.2 7.5 - 12.5 fL 10/29/2024 2:25 PM EST [facility] Blood Structure of peripheral vein / Unknown Venipuncture / Unknown 10/29/2024 2:04 PM EST 10/29/2024 2:04 PM EST Ashok Potter MD LAB BLOOD ORDERABLES Final Res ult Performing Organization Address [facility] Co de Phone Number [facility] [address] [place] [address], * Type and screen (10/29/2024 2:04 PM [...] Edited Result - Final Performing Organization Address [facility] de Phone Number [facility] [address] [place] [address], [place] [phone] * X-Ray Knee Right 4+ Views (10/21/2024 11:30 AM EST) Anatomical Region Laterality Modality Lower Extremities, Knee Right Computed Radiography Saqib Santos MD IMG XR PROCEDURES Final Resu lt from Last 3 Months Insurance MEDICARE MEDICARE Advance Directives Documents on File Type Date Recorded Patient Pharmacist Technician Expl anation Health Care Proxy 07/02/2024 1:[facility] PM [facility] * Full Code (Latest Code Status on File) Date Activated Date Inactivated Comments 11/09/2024 12:05 PM 11/12/2024 6:25 PM * Full Code Date Activated Date Inactivated Comments 07/20/2024 12:55 PM 07/22/2024 3:45 PM Care Teams Product Technician Relationship Specialty Start Date End Date Chen Pop [address] [place] [address] PCP - General Internal Medicine 05/01/24
--- OUTSIDE RECORDS SUMMARY | 2025-01-11 15:24 | XMS_ITS | Encounter Summary ---
Author Organization [facility] Address [address] [place] [address] Care Team Providers Care Purchasing And Fiscal Clerk Name Role Phone Chen Pop Primary Care Provider [phone] Reason for Visit * Reason Onset Date Comments PAC_Patient Request Call Back_[place] 01/11/2025 Encounter Details Date Type Department Care Team (Late st Contact Info) Description 01/11/2025 Telephone [facility] Orthopedics [address] [place] [phone] Telephone Intake, Staff PAC_Patient Request Call Back_Pongor [...] [facility] this new procedure. Please call the patient at [phone]. documented in this encounter Plan of Treatment Upcoming Encounters Date Type Department Care Team (Late st Contact Info) Description 01/28/2025 2:15 PM EDT Follow-Up CC [facility] AT [address] [facility] [address] [place] [address] Saqib Santos J.P., MD [address] [place] [address] documented as of this encounter Visit Diagnoses Not on filedocumented in this encounter Care Teams Purchasing And Fiscal Clerk Relationship Specialty Start Date End Date Chen Pop [facility] [place] [address] PCP - General Internal Medicine 05/01/24 documented as of this encounter
--- OUTSIDE RECORDS SUMMARY | 2025-01-11 15:24 | XMS_ITS | Encounter Summary ---
Author Organization [facility] Address [address] [place] [address] Care Team Providers Care Web Content Coordinator Name Role Phone Chen Pop Primary Care Provider [phone] Reason for Visit * Reason Onset Date Comments PAC General Info [facility] 12/22/2024 Encounter Details Date Type Department Care Team (Late st Contact Info) Description 12/22/2024 Telephone [facility] [address] [address] Telephone Intake, Staff PAC General Info [place] [...] for patient to have a cleaning. Dentist: [facility] Any questions, please call patient patient at [phone] Thank you documented in this encounter Plan of Treatment Upcoming Encounters Date Type Department Care Team (Late st Contact Info) Description 01/28/2025 2:15 PM EDT Follow-Up [facility] AT [address] [facility] [address] [place] [address] Saqib Santos J.P., MD [address] [place] [address] documented as of this encounter Visit Diagnoses Not on filedocumented in this encounter Care Teams Web Content Coordinator Relationship Specialty Start Date End Date Chen Pop [address] [place] [address] PCP - General Internal Medicine 05/01/24 documented as of this encounter
--- OUTSIDE RECORDS SUMMARY | 2025-01-11 15:24 | XMS_ITS | Encounter Summary ---
Author Organization [facility] Address [address] [place] [address] Care Team Providers Care Supervisor [employer] Name Role Phone CarolinajoseriazChen Primary Care Provider [phone] Encounter Details Date Type Department Care Team (Late st Contact Info) Description 10/27/2024 [facility] Message Intial Department [address] [place] [phone] Mychart, Generic Provider [facility] [place] [address] Questionnaire Submission Social History Tobacco [...] PM EDT Follow-Up CC [facility] AT [address] [facility] [address] [place] [address] Saqib Santos J.P., MD [address] [place] [address] documented as of this encounter Visit Diagnoses Not on filedocumented in this encounter Care Teams Supervisor [employer] Relationship Specialty Start Date End Date Chen Pop [place] [address] PCP - General Internal Medicine 05/01/24 documented as of this encounter
--- OUTSIDE RECORDS SUMMARY | 2025-01-11 15:24 | XMS_ITS | Encounter Summary ---
Author Organization [facility] Address [address] [place] [address] Care Team Providers Care Paper Baling Machine Operator Name Role Phone CarolinajoseriazChen Primary Care Provider [phone] Encounter Details Date Type Department Care Team (Late st Contact Info) Description 10/27/2024 [employer] Message Intial Department [address] [place] [address] Mychart, Generic Provider [facility] [place] [address] Questionnaire Submission Social History Tobacco [...] PM EDT Follow-Up [facility] AT [address] [facility] [address] [place] [address] Saqib Santos J.P., MD [address] [place] [address] documented as of this encounter Visit Diagnoses Not on filedocumented in this encounter Care Teams Paper Baling Machine Operator Relationship Specialty Start Date End Date Chen Pop [facility] [place] [address] PCP - General Internal Medicine 05/01/24 documented as of this encounter
--- OUTSIDE RECORDS SUMMARY | 2025-01-11 15:24 | XMS_ITS | Encounter Summary ---
Author Organization [facility] Address [address] [place] [address] Care Team Providers Care Flight Attendant Name Role Phone CarolinajoseriazChen Primary Care Provider [phone] Encounter Details Date Type Department Care Team (Late st Contact Info) Description 10/27/2024 [employer] Message Intial Department [address] [place] [address] Mychart, Generic Provider [facility] [place] [address] Questionnaire Submission Social History [...] PM EDT Follow-Up [facility] AT [address] [facility] [address] [place] [address] Saqib Santos J.P., MD [address] [place] [address] documented as of this encounter Visit Diagnoses Not on filedocumented in this encounter Care Teams Flight Attendant Relationship Specialty Start Date End Date Chen Pop [facility] [place] [address] PCP - General Internal Medicine 05/01/24 documented as of this encounter
--- OUTSIDE RECORDS SUMMARY | 2025-01-11 15:24 | XMS_ITS | Encounter Summary ---
Author Organization [facility] Address [address] [place] [address] Care Team Providers Care Student Life Advisor Name Role Phone CarolinajoseriazChen Primary Care Provider [phone] Encounter Details Date Type Department Care Team (Late st Contact Info) Description 10/24/2024 [employer] Message Intial Department [address] [place] [address] Mychart, Generic [place] [address] Questionnaire Submission Social History Tobacco [...] PM EDT Follow-Up [facility] AT [address] [facility] [address] [place] [address] Saqib Santos J.P., MD [address] [place] [address] documented as of this encounter Visit Diagnoses Not on filedocumented in this encounter Care Teams Student Life Advisor Relationship Specialty Start Date End Date Chen Pop [facility] [place] [address] PCP - General Internal Medicine 05/01/24 documented as of this encounter
--- OUTSIDE RECORDS SUMMARY | 2025-01-11 15:24 | XMS_ITS | Encounter Summary ---
Author Organization [facility] Address [address] [place] [address] Care Team Providers Care Skin Peeling Machine Operator Name Role Phone Judy Mack MD Primary Care Provider [phone] Encounter Details Date Type Department Care Team (Late st Contact Info) Description 07/23/2024 Lab Requisition [facility] - Main Lab [address] [facility] [place] [phone] Brian Avalos MD [address] [place] [address] Pain in right knee Social History Tobacco [...] knee documented in this encounter Care Teams Skin Peeling Machine Operator Relationship Specialty Start Date End Date Judy Mack MD [address] [facility] [address] [place] [phone] PCP - General Internal Medicine 06/25/17 documented as of this encounter
--- OUTSIDE RECORDS SUMMARY | 2025-01-11 15:24 | XMS_ITS | Encounter Summary ---
Author Organization [facility] Address [address] [place] [address] Care Team Providers Care Housekeeper Caregiver Name Role Phone CarolinajoseriazChen Primary Care Provider [phone] Encounter Details Date Type Department Care Team (Late st Contact Info) Description 10/24/2024 Perdoo Message Intial Department [address] [place] [address] Mychart, Generic Provider [facility] [place] [address] Questionnaire Submission Social History Tobacco [...] PM EDT Follow-Up CC [facility] AT [address] [facility] [address] [place] [address] Saqib Santos J.P., MD [address] [place] [address] documented as of this encounter Visit Diagnoses Not on filedocumented in this encounter Care Teams Housekeeper Caregiver Relationship Specialty Start Date End Date Chen Pop [facility] [place] [address] PCP - General Internal Medicine 05/01/24 documented as of this encounter
--- OUTSIDE RECORDS SUMMARY | 2025-01-11 15:24 | XMS_ITS | Referral Summary ---
Author Organization [facility] Address [address] [place] [address] Care Team Providers Care Die Maker Name Role Phone Lorraine Popanna Primary Care Provider [phone] Encounters Date Type Department Care Team Description 01/11/2025 Telephone [facility] [address] [place] [address] Telephone Intake, Staff PAC_Patient Request Call Back_[place] 12/22/2024 Telephone [facility] [address] [address] Telephone Intake, Staff PAC General Info [place] 12/03/2024 3:45 PM EDT Telehealth CC [facility] AT [address] [facility] [address] [place] [address] Saqib Santos J.P., MD Arthritis of left knee (Primary Dx); Arthrofibrosis of knee joint, right; History of total right knee replacement; History of total left knee replacement 11/30/2024 Tele[address] [address] [place] [address] Saqib Santos J.P., MD 11/09/2024 7:37 AM EST - 11/12/2024 4:10 PM EST Hospital Encounter [facility] 2 Medical Surgery [address] [place] [address] Saqib Santos J.P., MD Primary localized osteoarthritis of right knee (Primary Dx); Primary osteoarthritis of left knee Discharge Disposition: Inpatient Rehab Facility (IRF) (62) 11/09/2024 9:40 AM EST - 11/09/2024 12:25 PM EST Surgery [facility] Day Surgery [address] [place] [address] Saqib Santos J.P., MD ARTHROPLASTY, KNEE, CONDYLE AND PLATEAU; MEDIAL AND LATERAL COMPARTMENTS WITH OR WITHOUT PATELLA RESURFACING (TOTAL KNEE ARTHROPLASTY) [50844 (CPT??)] 11/09/2024 9:59 AM EST Anesthesia Event [facility] Day Surgery [address] [place] [address] Jimmy Liu MD Foley, Joseph P, MD 10/29/2024 Prep for Case [facility] [address] [address] Saqib Santos J.P., MD 10/29/2024 1:00 PM EST Office [facility] [address] [address] Saqib Santos J.P., MD Arthritis of left knee (Primary Dx); Arthrofibrosis of knee joint, right 10/27/2024 myChart Message Intial Department [address] [place] [address] Mychart, Generic Provider Questionnaire Submission 10/27/2024 myChart Message Intial Department [address] [place] [address] Mychart, Generic Provider Questionnaire Submission 10/27/2024 myChart Message Intial Department [address] [place] [address] Mychart, Generic Provider Questionnaire Submission 10/27/2024 myChart Message Intial Department [address] [place] [address] Mychart, Generic Provider Questionnaire Submission 10/26/2024 myChart Message Intial Department [address] [place] [address] Mychart, Generic Provider Questionnaire Submission 10/26/2024 myChart Message [facility] Surgery [address] [place] [address] Mychart, Generic Provider Questionnaire due soon 10/24/2024 myChart Message Intial Department [address] [place] [address] Mychart, Generic Provider Questionnaire Submission 10/24/2024 myChart Message Intial Department [address] [place] [address] Mychart, Generic Provider Questionnaire Submission 10/22/2024 myChart Message [facility] [address] [address] Michelt, Generic Provider Surgery Paperwork 10/21/2024 11:35 AM EST Ancillary Procedure [facility] [address] [address] History of total right knee replacement 10/21/2024 11:40 AM EST Follow-Up [facility] [address] [address] Saqib Santos J.P., MD Primary osteoarthritis of left knee (Primary Dx); History of total right knee replacement 10/20/2024 Telephone [facility] [address] [address] Saqib Santos J.P., MD from Last 3 [...] PM EDT Follow-Up CC [facility] AT [address] [facility] [address] [place] [address] Saqib Santos J.P., MD [address] [place] [address] Medical Devices Implanted Type Area Physician Office Rep Device Identifier Shelf Expiration Date Model / Serial / Lot Patella Asymmetric Metal Backed Tritanium Size A32 [id number] Tritanium - [id number] Implanted:Qty: 1 on 07/20/2024 by Saqib Santos J.P., MD at [facility] Implant Right: Knee CHRISTIE [id number] 04/09/2029 5552-L-32 0 / / [id number] Insert Tibial Bearing Size 4 11mm Triathlon X3 - [id number] Implanted:Qty: 1 on 07/20/2024 by Saqib Santos J.P., MD at [facility] Implant Right: Knee CHRISTIE [id number] 03/27/2029 5531-G-41 1-E / / [id number] Component Femoral Knee Cruciate Retaining Right Size 4 - [id number] Implanted:Qty: 1 on 07/20/2024 by Saqib Santos J.P., MD at [facility] Implant Right: Knee CHRISTIE [id number] 04/25/2029 5517-F-40 2 / / [id number] Baseplate Tritanium Size 4 Triathlon - [id number] Implanted:Qty: 1 on 07/20/2024 by Saqib Santos J.P., MD at [facility] Implant Right: Knee CHIRSTIE [id number] 03/02/2029 5536-B-40 0 / / [id number] Component Femoral Cruciate Retaining Beaded Left Size 4 Triathlon - [id number] Implanted:Qty: 1 on 11/09/2024 by Saqib Santos J.P., MD at [facility] Implant Left: Knee CHRISTIE [id number] 01/22/2029 5517-F-40 1 / / [id number] Baseplate Tritanium Size 4 Triathlon - [id number] Implanted:Qty: 1 on 11/09/2024 by Saqib Santos J.P., MD at [facility] Implant Left: Knee CHRISTIE [id number] 08/27/2029 5536-B-40 0 / / [id number] Patella Asymmetric Metal Backed Tritanium Size A32 [id number] Tritanium - [id number] Implanted:Qty: 1 on 11/09/2024 by Saqib Santos J.P., MD at [facility] Implant Left: Knee CHRISTIE [id number] 01/21/2029 5552-L-32 0 / / [id number] Tibial Bearing Insert Size 4 9mm Triathlon - [id number] Implanted:Qty: 1 on 11/09/2024 by Saqib Santos J.P., MD at [facility] Implant Left: Knee CHRISTIE [id number] 06/18/2029 5531-G-40 9-E / / [id number] Procedures * Due to [place] [employer] law, this organization might not be sharing negative HIV tests. Procedure Name Priority Date/Time Associated Diagnosis Comments CBC AUTO DIFFERENTIAL Routine 11/10/2024 10:17 AM EST BASIC METABOLIC PANEL Routine 11/10/2024 10:17 AM EST XR KNEE 1 OR 2 VW LEFT Routine 11/09/2024 1:17 PM EST TISSUE EXAM Routine 11/09/2024 10:55 AM EST Primary osteoarthritis of left knee OH TOTAL KNEE ARTHROPLASTY 11/09/2024 9:44 AM EST Primary osteoarthritis of left knee Special Needs OSTEONICS/CHRISTIE OH AN PAIN BLOCK AT SURGEON REQUEST Routine 11/09/2024 9:40 AM EST OH AN PERIPHERAL BLOCK POST-OP PAIN Routine 11/09/2024 [...] Last 3 Months Results * Due to [place] [employer] law, this organization might not be sharing negative HIV tests. * (ABNORMAL) CBC Auto Differential (11/10/2024 10:17 AM EST) WBC 10.2 3.8 - 10.8 10*3/uL 11/10/2024 11:23 AM EST [facility] RBC 3.78(L) 3.80 - 5.10 10*6/uL 11/10/2024 11:23 AM [facility] Hemoglobin 11.1(L) 11.7 - 15.5 g/dL 11/10/2024 11:23 AM [facility] Hematocrit 34.6(L) 35.0 - 45.0 % 11/10/2024 11:23 AM [facility] MCV 91.5 80.0 - 100.0 fL 11/10/2024 11:23 AM [facility] MCH 29.4 27.0 - 33.0 pg 11/10/2024 11:23 AM [facility] MCHC 32.1 32.0 - 36.0 g/dL 11/10/2024 11:23 AM [facility] RDW 14.0 11.0 - 15.0 % 11/10/2024 11:23 AM [facility] Platelets 183 140 - 400 10*3/uL 11/10/2024 11:23 AM [facility] MPV 9.6 7.5 - 12.5 fL 11/10/2024 11:23 AM [facility] Neutrophil % 87.7 % 11/10/2024 11:23 AM [facility] Immature Grans % 0.4 0.0 - 0.9 % 11/10/2024 11:23 AM EST [facility] Lymphocyte % 5.6 % 11/10/2024 11:23 AM [facility] Monocyte % 6.2 % 11/10/2024 11:23 AM [facility] Eosinophil % 0.0 % 11/10/2024 11:23 AM [facility] Basophil % 0.1 % 11/10/2024 11:23 AM [facility] Neutrophil # 8.90(H) 1.50 - 7.80 10*3/uL 11/10/2024 11:23 AM EST [facility] Immature Grans # 0.04(H) <=0.03 10*3/uL 11/10/2024 11:23 AM EST [facility] Lymphocyte # 0.60(L) 0.85 - 3.90 10*3/uL 11/10/2024 11:23 AM EST [facility] Monocyte # 0.60 0.20 - 0.95 10*3/uL 11/10/2024 11:23 AM EST [facility] Eosinophil # <0.03 0.02 - 0.50 10*3/uL 11/10/2024 11:23 AM EST [facility] Basophil # <0.03 0.00 - 0.20 10*3/uL 11/10/2024 11:23 AM EST [facility] nRBC % 0.0 /100 WBCs 11/10/2024 11:23 AM EST [facility] nRBC # <0.01 <0.01 10*3/uL 11/10/2024 11:23 AM EST [facility] Blood Structure of peripheral vein / Unknown Venipuncture / Unknown 11/10/2024 10:17 AM EST 11/10/2024 10:32 AM EST us Saqib Santos MD LAB BLOOD ORDERABLES Final R esult [facility] [address] [place] [address], * (ABNORMAL) Basic Metabolic Panel (11/10/2024 10:17 AM EST) Only the most recent of2 resultswithin the time period is included. NA 135 135 - 145 mmol/L 11/10/2024 11:10 AM [facility] K 4.7 3.5 - 5.3 mmol/L 11/10/2024 11:10 AM [facility] Cl 100 98 - 107 mmol/L 11/10/2024 11:10 AM [facility] CO2 25 22 - 32 mmol/L 11/10/2024 11:10 AM EST [facility] BUN 17 7 - 23 mg/dL 11/10/2024 11:10 AM [facility] Creatinine 1.13 0.50 - 1.20 mg/dL 11/10/2024 11:10 AM [facility] Glucose 256(H) 65 - 99 mg/dL 11/10/2024 11:10 AM EST [facility] Calcium 8.7 8.6 - 10.5 mg/dL 11/10/2024 11:10 AM [facility] Anion Gap 10 5 - 15 11/10/2024 11:10 AM [facility] eGFR 50(L) >=60 mL/min/1. 73m2 11/10/2024 11:10 AM [facility] Comment:The estimated glomer ular filtration rate [...] ORDERABLES Final R esult Performing Organization Address City/State/[facility] Co de Phone Number [facility] [address] [place] [address], [place] * X-Ray Knee Left 1 or [...] obtain the completed interpretation. ? Workstation ID: [id number] Narrative 11/09/2024 2:58 PM EST COMPARISON: ??06/04/2024. ?? FINDINGS AND Resulting Agency Comment [id number] Procedure Note Marlena Lakhani MD - 11/09/2024 [...] possible to obtain thecompleted interpretation. Workstation ID: [id number] Saqib Santos MD IMG XR PROCEDURES Final Resu lt * Tissue Exam (11/09/2024 10:55 AM EST) Final Diagnosis Bone and Tissue, Left Knee: - Osteoarthritis with osteophyte formation and bony eburnation. [facility] MANUAL 11/16/2024 12:54 PM EDT [facility] [employer] LABOR[facility] at 1254 EDT Clinical History Pre-op diagnosis: Primary osteoarthritis of left knee [M17.12] [facility] MANUAL 11/16/2024 12:54 PM EDT [facility] [employer] [facility] Gross Description [...] osteophyte formation. The margins are flat. A instruments sales representative section is submitted in cassette 1A after fixation and decalcification. [facility] MANUAL 11/16/2024 12:54 PM EDT [facility] [employer] [facility] LAB[facility] Gross Description User Grossing complete by Patel Sutherland on 11/09/2024 3:23 PM [facility] MANUAL 11/16/2024 12:54 PM EDT [facility] [employer] [facility] LAB[facility]ORY Embedded Images [facility] MANUAL 11/16/2024 12:54 PM EDT [facility] [employer] [facility] AN[facility] LABORATORY Resulting Agency Case was signed out at [facility], Department of Pathology, [facility] 3 [facility] [id number] [facility] MANUAL 11/16/2024 12:54 PM EDT [facility] [employer] [facility] Report Header Surgical Pathology Report ? Case: [id number] ? Authorizing Provider: ??Saqib Santos MD ? Collected: ? 11/09/2024 1055 ? Ordering Location: ? [facility]- ?Received: ?11/09/2024 1308 ? [facility] Day ? Surgery ? Pathologist: ? Campos Saini MD ? Specimen: ?Knee, Left, LEFT KNEE BONE AND TISSUE ? 11/16/2024 12:54 PM EDT [facility] Bone Structure of left knee region / Unknown 11/09/2024 10:55 AM EST 11/09/2024 1:08 PM EST Comment:Pre-op diagnosis: Primary osteoarthritis of left knee [M17.12] us Saqib Santos MD LAB PATHOLOGY/CYTOLOGY ORDER DAREN Final Result [facility] [address] [place] [address], [place] * OH AN PERIPHERAL BLOCK POST-OP PAIN, OH AN PAIN BLOCK AT SURGEON REQUEST (11/09/2024 [...] performed Peripheral Block Ultrasound #1 Probe: Linear [id number] Patient position: supine Prep: ChloraPrep Patient monitoring: [...] Culture Screen (10/29/2024 2:13 PM EST) Pathologist [facility] Culture No methicillin resistant Staphylococcus aureus (MRSA) isolated. 10/31/2024 5:56 AM EST [facility] Swab Nasal structure / Unknown Non-Blood Collection / Unknown 10/29/2024 2:13 PM EST 10/29/2024 2:13 PM EST Narrative [facility] - 10/31/2024 5:56 AM EST [facility] Received Date: MICRO NUMBER: [id number] SPECIMEN QUALITY: Adequate SOURCE: SWAB NOSE STATUS: FINAL Saqib Santos MD LAB MICROBIOLOGY - GENERAL O RDERABLES Final Result [facility] [address] [facility] [address], [place] [address], [facility] [address] [facility] [address], [place] [address], * CBC (10/29/2024 2:04 PM EST) Pathologist [facility] WBC 5.1 3.8 - 10.8 10*3/uL 10/29/2024 2:25 PM EST [facility] RBC 4.30 3.80 - 5.10 10*6/uL 10/29/2024 2:25 PM EST [facility] Hemoglobin 12.9 11.7 - 15.5 g/dL 10/29/2024 2:25 PM EST [facility] Hematocrit 40.0 35.0 - 45.0 % 10/29/2024 2:25 PM EST [facility] MCV 93.0 80.0 - 100.0 fL 10/29/2024 2:25 PM EST [facility] MCH 30.0 27.0 - 33.0 pg 10/29/2024 2:25 PM EST [facility] MCHC 32.3 32.0 - 36.0 g/dL 10/29/2024 2:25 PM EST [facility] RDW 13.9 11.0 - 15.0 % 10/29/2024 2:25 PM EST [facility] Platelets 277 140 - 400 10*3/uL 10/29/2024 2:25 PM EST [facility] MPV 9.2 7.5 - 12.5 fL 10/29/2024 2:25 PM EST [facility] Blood Structure of peripheral vein / Unknown Venipuncture / Unknown 10/29/2024 2:04 PM EST 10/29/2024 2:04 PM EST Ashok Potter MD LAB BLOOD ORDERABLES Final Res ult [facility] [address] [place] [address], [place] * Type and screen (10/29/2024 2:04 [...] Result - Final [facility] [address] [place] [address], [place] [phone] * X-Ray Knee Right 4+ Views (10/21/2024 11:30 AM EST) Anatomical Region Laterality Modality Lower Extremities, Knee Right Computed Radiography Saqib Santos MD IMG XR PROCEDURES Final Resu lt from Last 3 Months Insurance [facility] MEDICARE [facility] Advance Directives Documents on File Type Date Recorded Patient Internal Security Manager Expl anation Health Care Proxy 07/02/2024 1:51 PM [facility] Health Care Proxy * Full Code (Latest Code Status on File) Date Activated Date Inactivated Comments 11/09/2024 12:05 PM 11/12/2024 6:25 PM * Full Code Date Activated Date Inactivated Comments 07/20/2024 12:55 PM 07/22/2024 3:45 PM Care Teams Die Maker Relationship Specialty Start Date End Date Chen Pop [address] [place], [place] [id number] PCP - General Internal Medicine 05/01/24
--- OUTSIDE RECORDS SUMMARY | 2025-01-11 15:24 | XMS_ITS | Encounter Summary ---
Author Organization [facility] Address [address] [place] [address] Care Team Providers Care Batch Weigher Name Role Phone CarolinajoseriazChen Primary Care Provider [phone] Encounter Details Date Type Department Care Team (Late st Contact Info) Description 10/26/2024 [facility] Message Intial Department [address] [place] [address] Mychart, Generic Provider [place] [address] Questionnaire Submission Social History Tobacco [...] PM EDT Follow-Up CC [facility] AT [address] [facility] [address] [place] [address] Saqib Santos J.P., MD [address] [place] [address] documented as of this encounter Visit Diagnoses Not on filedocumented in this encounter Care Teams Batch Weigher Relationship Specialty Start Date End Date Chen Pop [facility] [place] [address] PCP - General Internal Medicine 05/01/24 documented as of this encounter
--- OUTSIDE RECORDS SUMMARY | 2025-01-11 15:24 | XMS_ITS | Clinical Summary ---
Author Organization [facility] Address [address] [facility] [address] [place] [address] Phone Care Team Providers Care Casting Wheel Operator Helper Name Role Phone Unavailable Primary Care Provider [...] Take 400 Units by mouth daily Active Veguita-3 1000 MG capsule Take 1 capsule by [...] age to complete this topic Insurance Medicare [facility] Medicare [facility]
[2025-01-11 16:13] LABS: MANUAL DIFF FLAG NO
[2025-01-11 16:24] LABS: Basophils Percent Auto 0.5 % (0-2); Eosinophils Percent Auto 0.5 % (0-4); Hematocrit 40.4 % (37.0-47.0); Hemoglobin 12.8 g/dl (12.0-16.0); Imm Gran Abs Auto 0.01 X10*3/uL (0.00-0.03); Imm Gran Pct Auto 0.3 % (0.0-0.4); Lymphocytes Absolute Auto 1.1 X10*3/uL (1.2-4.9); Lymphocytes Percent Auto 28.5 % (20-40); Mean Corpuscular HGB Conc 31.7 g/dl (31.0-35.0); Mean Corpuscular Hemoglobin 28.8 pg (27.0-33.0); Mean Platelet Volume 9.9 fL (9.4-12.3); Monocytes Absolute Auto 0.6 X10*3/uL (0.1-1.2); Monocytes Percent Auto 15.4 % (2-11); Neutrophils Absolute Auto 2.2 x10*3/uL (2.0-8.3); Neutrophils Percent Auto 54.8 % (45-73); Platelet Count 256 X10*3/uL (160-400); Red Blood Count 4.44 X10*6/uL (4.20-5.50); Red Cell Distribution Width 14.8 % (11.0-16.0)
[2025-01-11 17:05] LABS: Alanine Aminotransferase 7 U/L (0-31); Albumin Level 3.9 g/dL (3.5-5.0); Anion Gap 12 (12-20); Aspartate Amino Transferase 20 U/L (5-31); Bilirubin Total 0.4 mg/dL (0.0-1.0); Blood Urea Nitrogen 15 mg/dL (9-16); Calcium 9.1 mg/dL (8.4-10.2); Carbon Dioxide 28 mmol/L (22-29); Chloride 103 mmol/L (96-108); Estimated Glomerular Filt Rate 54; Glucose Random 110 mg/dL (60-115); Potassium 3.9 mmol/L (3.3-5.1); Sodium 139 mmol/L (135-145); TSH reflex Free T4 2.95 uIU/mL (0.32-4.0); Total Protein 7.2 g/dL (6.5-8.0)
[2025-01-11 17:17] LABS: Alkaline Phosphatase 71 U/L (39-117)
== END 2025-01-11 12:29 | disposition home or self-care (01) ==
LOC: HO.HMGCLDS 12:28
PROVIDERS: PCP Internal Medicine; Visit Provider Internal Medicine
DX: Z00.00 Encounter for general adult medical examination without abnormal findings (principal); R63.4 Abnormal weight loss; G62.9 Polyneuropathy, unspecified; C90.00 Multiple myeloma not having achieved remission; N18.30 Chronic kidney disease, stage 3 unspecified
CPT/HCPCS: 36415; 80053; 84443; 85025; 99397

== ENCOUNTER 2025-01-11 12:28 | Outpatient (AMB) | payer MEDICARE, OTHER, SELFPAY ==
--- NOTE | 2025-01-11 12:30 | A.OFFPC_ITS ---
Vital Signs 01/11/25 12:31 Height 5 ft 5 in Weight 140 lb BMI 23.3 BP 118/78 Blood Pressure Location Lt brachial Position Sitting Respiration 18 Pulse 64 Pulse Source Pulse Oximeter Temp 98.4 F Temp Source Oral Pulse Oximetry (%) 97 Oxygen Delivery Method Room Air Intake Visit Reasons: Annual PE Intake Note: Pt is here today for PE. Allergies No Known Allergies Allergy (Verified 01/11/25 12:38) Medication List - Last Reconciled 01/11/25 by Chen Pop MD acetaminophen 650 mg (2 x 325 mg) PO Q6H PRN 30 days amoxicillin 2,000 mg (4 x 500 mg) PO ONCE 1 day aspirin 81 mg PO DAILY bisacodyl (Dulcolax (bisacodyl)) 10 mg (2 x 5 mg) PO BEDTIME calcium acetate calcium 1200 mg vitamin d3 1000 units cane As directed cyclobenzaprine 10 mg PO TID PRN docusate sodium (Stool Softener) 250 mg PO BID docusate sodium 100 mg PO BID dorzolamide-timolol 22.3-6.8 mg/mL ophthalmic (eye) duloxetine 60 mg PO DAILY fluticasone propionate 50 mcg/actuation 1 spray intranasal DAILY gabapentin 600 mg PO BID ixazomib (Ninlaro) mg PO lisinopril 2.5 mg PO DAILY montelukast (Singulair) 10 mg PO BEDTIME pantoprazole 40 mg PO DAILY [Powerlift reclinder slim width and depth ] [probiotics 100mg orally; ] prochlorperazine maleate 10 mg PO DAILY PRN [Raised toilet seat duration: lifetime] ropinirole 6 mg (3 x 2 mg) PO BEDTIME sennosides (senna) 17.2 mg PO BID [SHOWER CHAIR As directed] trazodone 1-2 tabl orally bedtime; valacyclovir 1,000 mg PO TID walker Folding Front wheeled walker Tobacco use date assessed: 01/11/25 Fall risk assessment: No Falls in past year Last assessed Fall Risk: 01/11/25 Dental Screening Dental Screen Date: 01/11/25 Did you have a dental visit in the last 12 months?: Yes Did you have a dental problem in the last 6 months where you did not have access to dental care?: No Was dental information given to patient?: Patient has dentist HPI Annual PE HPI Details Pt presents for PE. Patient complains of decreasing appetite and weight loss for the last few weeks. She is feeling anxious about living alone and getting weaker. Her grandson who lives with her will be moving out in a month. Patient has an appointment scheduled with a counselor. She denies depression or change in the sleep pattern. 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 Osteoarthritis of right hip Personal history of COVID-19 Pain Slow to wake up after anesthesia Achalasia of esophagus Otitis media of right ear Cataract RLS (restless legs syndrome) Insomnia Hx of breast cancer Post-nasal drip Multiple myeloma Ankle fracture, left GERD (gastroesophageal reflux disease) Surgical History History of esophagogastroduodenoscopy (EGD) History of right hip replacement (09/11/23) Hx of bilateral cataract extraction History of lumpectomy of right breast History of History of surgery on left wrist History of colonoscopy H/O left knee surgery Status post ORIF of fracture of ankle (~2020) Family History Father Lung cancer Mother Diabetes Hypertension Heart attack Other Mental health disorder Social History Household Members: None Household Members Other:: , 2 sons, Housing: House Are you a primary intensive care nurse to a significant other at home: No Do you presently have visiting nurse or other home services: No Comment: pressure Patient Tobacco Use Status: Former Tobacco user Tobacco use type: Cigarette Years Smoked: 2 e-Cigarette/Vaping Use: Never Used Second Hand Smoke Exposure: No service: No Current occupational status: retired Cognitive needs: No Hearing needs: No Vision needs: Yes Questionnaire Thrive Questionnaire Date Thrive assessed: 11/23/24 I am a: Patient What is your living situation today?: I have a steady place to live Within the past 12 months, did the food you bought not last and you didn't have the money to get more?: Often true Within the past 12 months, did you worry whether your food would run out before you got money to buy more?: Often true Do you have trouble paying for medicines?: No Do you have trouble getting transportation to medical appointments?: No Do you have trouble paying your heating and electricity bill?: No Do you have trouble taking care of your child, family member or friend?: No Do you have trouble with day-to-day activities such as bathing, preparing meals, shopping, managing finances, etc.?: Yes Are you currently unemployed and looking for a job?: No Are you interested in more education?: No Please select the resources that you would like help with: None Currently or been in a relationship where the following occur: No concerns reported THRIVE Score: 2 AUDIT C Alcohol Use Questionnaire (AUDIT-C) 2. How many drinks containing alcohol do you have on a typical day when you are drinking?: 1 or 2 3. How often do you have six or more drinks on one occasion?: Never Total Score: 0 ROCK-7 AMB Questionnaire ROCK-7 Date ROCK - 7 assessed: 07/14/24 Source: Developed by Drs. Talha Steve, Halina Pena, Levar Earl and colleagues, with an educational ramón from [employer]. Review of Systems Const All systems reviewed & are unremarkable except as noted in HPI and below Reports no additional complaints Eyes Reports no additional complaints ENT Reports no additional complaints Card Reports no additional complaints Resp Reports no additional complaints GI Reports no additional complaints Musc Reports no additional complaints Physical exam (Primary Care) Vital Signs: Last Vital Signs Temp 98.4 F 01/11/25 12:31 Pulse 64 01/11/25 12:31 Resp 18 01/11/25 12:31 BP 118/78 01/11/25 12:31 Pulse Ox 97 01/11/25 12:31 Oxygen Delivery Method Room Air 01/11/25 12:31 BMI result Body Mass Index 23.3 Tobacco/Smoking Status: Tobacco use Status Tobacco use date assessed 01/11/25 01/11/25 12:39 Patient Tobacco Use Status Former Tobacco user 01/11/25 12:31 Tobacco use type Cigarette 01/11/25 12:31 e-Cigarette/Vaping Use Never Used 01/11/25 12:31 Thrive Assessment: Date of Thrive Assessment Date Thrive assessed 11/23/24 01/11/25 12:31 Currently or been in a relationship where the following occur: No concerns reported Const General: no acute distress HENMT Head: Yes normal to inspection Ears: hearing grossly normal bilaterally Eyes General: appearance normal, both eyes and all related structures Neck Neck: Yes no lymphadenopathy and Yes supple Resp Effort & Inspection: normal respiratory effort Auscultation: clear to auscultation bilaterally Cardio Rhythm: regular rhythm Heart sounds: S1 normal heart sound present and S2 normal heart sound present GI Inspection: Yes normal to inspection Palpation (GI): Soft to palpation Percussion: Yes normal to percussion Auscultation: normal bowel sounds Coding Level of Care Code Est Pt Prev Care >65y(59863) Diagnoses Weight loss R63.4 Annual physical exam Z00.00 Neuropathy G62.9 Multiple myeloma C90.00 CKD (chronic kidney disease) stage 3, GFR 30-59 ml/min N18.30 Assessment & Plan Assessment & Plan (1) Weight loss: Code(s): R63.4 - Abnormal weight loss Category: Medical Plan: Check TSH comprehensive panel and complete blood count, increasing caloric intake adding nutritional supplement discussed with the patient. Mirtazapine 7.5 mg q.h.s. will be started and patient will follow-up in 1 month (2) Annual physical exam: Code(s): Z00.00 - Encounter for general adult medical examination without abnormal findings Category: Medical Plan: Well-balanced diet regular physical activity discussed with the patient (3) Neuropathy: Comment: LLE after surgery for venous insufficiency on duloxetine and gabapentin Code(s): G62.9 - Polyneuropathy, unspecified Category: Medical Plan: Continue duloxetine gabapentin (4) Multiple myeloma: Comment: [facility]ology, dxd 2020, in remission 01/28 on Ninlaro and Prolia q 3 months Code(s): C90.00 - Multiple myeloma not having achieved remission Category: Medical Plan: Follow-up with Hematology (5) CKD (chronic kidney disease) stage 3, GFR 30-59 ml/min: Comment: Established with Nephrology Code(s): N18.30 - Chronic kidney disease, stage 3 unspecified Category: Medical Plan: Avoid nephrotoxins monitor renal function follow-up with nephrology Orders: Orders TSH reflex Free T4 Today R63.4 - Abnormal weight loss Comprehensive Met. Panel Today R63.4 - Abnormal weight loss Complete Blood Count Auto Diff Today R63.4 - Abnormal weight loss Medications: New mirtazapine 7.5 mg PO BEDTIME 30 tabs 1RF
[2025-01-11 12:31] VITALS: BP 118/78; PULSE 64; RESP 18; TEMP 36.9; O2SAT 97; BMI 23.3
--- OUTSIDE RECORDS SUMMARY | 2025-01-11 14:00 | XMS_ITS | Encounter Summary ---
Author Organization [facility] Address [address] [place] [address] Care Team Providers Care Drum Carrier Name Role Phone Chen Pop Primary Care Provider [phone] Encounter Details Date Type Department Care Team (Late st Contact Info) Description 07/06/2024 CRS Electronics Message Intial Department [address] [place] [address] Mychart, Generic Provider [address] [place] [address] Questionnaire Submission Social History Tobacco Use [...] Care Team (Late st Contact Info) Description 01/28/2025 2:15 PM EDT Follow-Up CC [facility] AT [address] [facility] [address] [place] [address] Saqib Santos J.P., MD [address] [place] [address] documented as of this encounter Visit Diagnoses Not on filedocumented in this encounter Care Teams Drum Carrier Relationship Specialty Start Date End Date Chen Pop [address] [place] [address] PCP - General Internal Medicine 05/01/24 documented as of this encounter
--- OUTSIDE RECORDS SUMMARY | 2025-01-11 14:00 | XMS_ITS | Encounter Summary ---
Author Organization [facility] Address [address] [place] [address] Care Team Providers Care Supervisor Forming And Tempering Name Role Phone Judy Mack MD Primary Care Provider [phone] Encounter Details Date Type Department Care Team (Late st Contact Info) Description 07/23/2024 Lab Requisition [facility] - Main Lab [address] [facility] [place] [phone] Brian Avalos MD [address] [place] [address] Pain in right knee Social History Tobacco [...] knee documented in this encounter Care Teams Supervisor Forming And Tempering Relationship Specialty Start Date End Date Judy Mack MD [address] [facility] [address] [place] [phone] PCP - General Internal Medicine 06/25/17 documented as of this encounter
--- OUTSIDE RECORDS SUMMARY | 2025-01-11 14:00 | XMS_ITS | Encounter Summary ---
Author Organization [facility] Address [address] [place] [address] Care Team Providers Care Small Electric Engine Technician Name Role Phone Chen Pop Primary Care Provider [phone] Encounter Details Date Type Department Care Team (Late st Contact Info) Description 07/06/2024 Clique Intelligence Message Intial Department [address] [place] [address] Mychart, Generic Provider [address] [place] [address] Questionnaire Submission Social History Tobacco Use [...] PM EDT Follow-Up CC [facility] AT [address] [facility] [address] [place] [address] Saqib Santos J.P., MD [address] [place] [address] documented as of this encounter Visit Diagnoses Not on filedocumented in this encounter Care Teams Small Electric Engine Technician Relationship Specialty Start Date End Date Chen Pop [address] [place] [address] PCP - General Internal Medicine 05/01/24 documented as of this encounter
--- OUTSIDE RECORDS SUMMARY | 2025-01-11 14:00 | XMS_ITS | Encounter Summary ---
Author Organization [facility] Address [address] [place] [address] Care Team Providers Care Technical Specialist Name Role Phone Chen Pop Primary Care Provider [phone] Reason for Visit * Reason Onset Date Comments PAC General Info [place] 12/22/2024 Encounter Details Date Type Department Care Team (Late st Contact Info) Description 12/22/2024 Telephone [facility] [address] [address] Telephone Intake, Staff PAC General Info [place] Social History Tobacco Use Types Packs/Day Years [...] encounter Miscellaneous Notes * Telephone Encounter - Jenniffer Chaidez - 12/22/2024 11:23 AM EDT PONGOR Patient recently had replacement of knee and she has a dental appointment for cleaning. The dentistis requesting a letter that it is OK for patient to have a cleaning. Dentist: [facility] Any questions, please call patient patient at [phone] Thank you documented in this encounter Plan of Treatment Upcoming Encounters Date Type Department Care Team (Late st Contact Info) Description 01/28/2025 2:15 PM EDT Follow-Up CC [facility] AT [address] [facility] [address] [place] [address] Saqib Santos J.P., MD [address] [place] [address] documented as of this encounter Visit Diagnoses Not on filedocumented in this encounter Care Teams Technical Specialist Relationship Specialty Start Date End Date Chen Pop [address] [place] [address] PCP - General Internal Medicine 05/01/24 documented as of this encounter
--- OUTSIDE RECORDS SUMMARY | 2025-01-11 14:00 | XMS_ITS | Clinical Summary ---
Author Organization [address] Address [address] [place] [address] Phone Care Team Providers Care Credentialing Manager Name Role Phone Judy Mack MD Primary [...] Influencers of Health Screening 08/11/2022 Influenza Vaccine (Season Ended) 2025 06/16/2023, 08/09/2022, 07/04/2022, Additional history exists Hypertension/CHF/CAD Annual BMP Blood Test 07/31/2025 07/31/2024, 07/29/2024, 07/23/2024, Additional history exists Pneumococcal Vaccine: 50+ Years (3 of 3 - PCV20 or PCV21) 05/05/2026 05/05/2021, 12/05/2018, 05/23/2011 DTaP,Tdap,and Td Vaccines (5 - Td or Tdap) 12/01/2031 11/30/2021, 03/25/2018, 06/27/2017, Additional history exists Zoster Vaccines Completed 11/30/2021, 09/28/2021 RSV Immunization Adult Patients Completed 08/07/2023 HIB Vaccines Aged Out No [...] age to complete this topic Meningococcal B Vaccine Aged Out No l onger eligible based on patient's age to complete [...] mmol/L LAB CHEMISTRY METHOD 07/31/2024 8:55 AM [facility] Potassium 4.4 3.5 - 5.5 mmol/L LAB CHEMISTRY METHOD 07/31/2024 8:55 AM [facility] Chloride 107 96 - 110 mmol/L LAB CHEMISTRY METHOD 07/31/2024 8:55 AM [facility] CO2 30 21 - 32 mmol/L LAB CHEMISTRY METHOD 07/31/2024 8:55 AM [facility] Anion Gap 4 3 - 11 LAB CHEMISTRY METHOD 07/31/2024 8:55 AM [facility] Glucose 82 70 - 100 mg/dL LAB CHEMISTRY METHOD 07/31/2024 8:55 AM [facility] BUN 20 5 - 25 mg/dL LAB CHEMISTRY METHOD 07/31/2024 8:55 AM [facility] Creatinine 0.92 0.50 - 1.10 mg/dL LAB CHEMISTRY METHOD 07/31/2024 8:55 AM [facility] eGFR 64 >=60 mL/min/1. 73m2 LAB CHEMISTRY METHOD 07/31/2024 8:55 AM [facility] Comment:Calculation based on the??Chronic Kidney Disease Epidemiology Collaboration (CKD-EPI) equation refit??without adjustment for race. BUN/Creatinine Ratio 21.7 LAB CHEMISTRY METHOD 07/31/2024 8:55 AM [facility] Calcium 8.4(L) 8.5 - 10.5 mg/dL LAB CHEMISTRY METHOD 07/31/2024 8:55 AM [facility] Blood Venous blood specimen / Unknown Venipuncture / Unknown 07/31/2024 4:39 AM EST 07/31/2024 7:14 AM EST us Brian Avalos MD LAB BLOOD ORDERABLES Final Res ult [facility] [address] [place] [address], from Last 3 Months or Most Recently Relevant to Health Maintenance Care Teams Credentialing Manager Relationship Specialty Start Date End Date Judy Mack MD [address] [facility] [address] [place] [phone] PCP - General Internal Medicine 06/25/17
--- OUTSIDE RECORDS SUMMARY | 2025-01-11 14:00 | XMS_ITS | Encounter Summary ---
Author Organization [facility] Address [address] [place] [address] Care Team Providers Care Fulling Mill Operator Name Role Phone CarolinajoseriazChen Primary Care Provider [phone] Encounter Details Date Type Department Care Team (Late st Contact Info) Description 10/27/2024 [facility] Message Intial Department [address] [place] [address] Mychart, Generic Provider [facility] [address] Questionnaire Submission Social History Tobacco [...] PM EDT Follow-Up CC [facility] AT [address] [facility] [address] [place] [address] Saqib Santos J.P., MD [address] [place] [address] documented as of this encounter Visit Diagnoses Not on filedocumented in this encounter Care Teams Fulling Mill Operator Relationship Specialty Start Date End Date Chen Pop [facility] [place] [address] PCP - General Internal Medicine 05/01/24 documented as of this encounter
--- OUTSIDE RECORDS SUMMARY | 2025-01-11 14:00 | XMS_ITS | Encounter Summary ---
Author Organization [facility] Address [address] [place] [address] Care Team Providers Care Electronic Organ Technician Name Role Phone Chen Pop Primary Care Provider [phone] Reason for Visit * Reason Onset Date Comments PAC_Patient Request Call Back_[place] 01/11/2025 Encounter Details Date Type Department Care Team (Late st Contact Info) Description 01/11/2025 Telephone [facility] [address] [place] [address] [phone] Telephone Intake, Staff PAC_Patient Request Call Back_[place] Social History Tobacco Use Types Packs/Day Years [...] encounter Miscellaneous Notes * Telephone Encounter - Arabella Dillon - 01/11/2025 11:42 AM EDT Patient is requesting to speak to in regards to her left knee manipulation procedure withhim as she does have an appointment to follow up about this scheduled and added to waitlist. This is a request due to timeframe of three months [facility] to complete this new procedure. Please call the patient at [phone]. documented in this encounter Plan of Treatment Upcoming Encounters Date Type Department Care Team (Late st Contact Info) Description 01/28/2025 2:15 PM EDT Follow-Up CC [facility] AT [address] [facility] [address] [place] [address] Saqib Santos J.P., MD [address] [place] [address] documented as of this encounter Visit Diagnoses Not on filedocumented in this encounter Care Teams Electronic Organ Technician Relationship Specialty Start Date End Date Chen Pop [facility] [place] [address] PCP - General Internal Medicine 05/01/24 documented as of this encounter
--- OUTSIDE RECORDS SUMMARY | 2025-01-11 14:00 | XMS_ITS | Encounter Summary ---
Author Organization [facility] Address [address] [place] [address] Care Team Providers Care Licensing Worker Name Role Phone Chen Pop Primary Care Provider [phone] Encounter Details Date Type Department Care Team (Late st Contact Info) Description 07/06/2024 [employer] Message Intial Department [address] [place] [address] Mychart, Generic Provider [address] [place] [address] Questionnaire Submission Social History Tobacco Use [...] PM EDT Follow-Up CC [facility] AT [address] [facility] [address] [place] [address] Saqib Santos J.P., MD [address] [place] [address] documented as of this encounter Visit Diagnoses Not on filedocumented in this encounter Care Teams Licensing Worker Relationship Specialty Start Date End Date Chen Pop [address] [place] [address] PCP - General Internal Medicine 05/01/24 documented as of this encounter
--- OUTSIDE RECORDS SUMMARY | 2025-01-11 14:00 | XMS_ITS | Encounter Summary ---
Author Organization [facility] Address [address] [place] [address] Care Team Providers Care Hide Dyer Name Role Phone Judy Mack MD Primary Care Provider [phone] Encounter Details Date Type Department Care Team (Late st Contact Info) Description 07/29/2024 Lab Requisition [facility] - Main Lab [address] [place] [address] Brian Avalos MD [address] [place] [address] Other specified arthritis, unspecified site Social History [...] AM EST) WBC 5.3 4.8 - 10.8 K/[facility] LAB HEMETOLOGY METHOD 07/29/2024 9:24 AM [facility] RBC 2.90(L) 3.80 - 4.80 M/mcL LAB HEMETOLOGY METHOD 07/29/2024 9:24 AM [facility] Hemoglobin 9.2(L) 11.5 - 16.0 g/dL LAB HEMETOLOGY METHOD 07/29/2024 9:24 AM [facility] Hematocrit 29.5(L) 35.0 - 47.0 % LAB HEMETOLOGY METHOD 07/29/2024 9:24 AM [facility] MCV 100.7(H) 79.0 - 98.0 FL LAB HEMETOLOGY METHOD 07/29/2024 9:24 AM [facility] MCH 31.4 27.0 - 32.0 pcg LAB HEMETOLOGY METHOD 07/29/2024 9:24 AM [facility] MCHC 31.2(L) 32.0 - 37.0 g/dL LAB HEMETOLOGY METHOD 07/29/2024 9:24 AM [facility] RDW 14.3 11.0 - 15.0 % LAB HEMETOLOGY METHOD 07/29/2024 9:24 AM [facility] Platelets 226 130 - 400 K/mcL LAB HEMETOLOGY METHOD 07/29/2024 9:24 AM [facility] MPV 10.7 7.0 - 11.0 FL LAB HEMETOLOGY METHOD 07/29/2024 9:24 AM [facility] NRBC 0.0 <1.0 % LAB HEMETOLOGY METHOD 07/29/2024 9:24 AM [facility] NRBC Absolute 0.00 <0.10 K/mcL LAB HEMETOLOGY METHOD 07/29/2024 9:24 AM [facility] Blood Venous blood specimen / Unknown Venipuncture / Unknown 07/29/2024 5:32 AM EST 07/29/2024 8:28 AM EST us Brian Avalos MD LAB BLOOD ORDERABLES Final Res ult [facility] [address] [place] [address], [place] [phone] * (ABNORMAL) Comprehensive metabolic panel (07/29/2024 5:32 AM EST) Sodium 141 133 - 145 mmol/L LAB CHEMISTRY METHOD 07/29/2024 10:01 AM [facility] Potassium 4.2 3.5 - 5.5 mmol/L LAB CHEMISTRY METHOD 07/29/2024 10:01 AM [facility] Chloride 104 96 - 110 mmol/L LAB CHEMISTRY METHOD 07/29/2024 10:01 AM [facility] CO2 31 21 - 32 mmol/L LAB CHEMISTRY METHOD 07/29/2024 10:01 AM [facility] Anion Gap 6 3 - 11 LAB CHEMISTRY METHOD 07/29/2024 10:01 AM [facility] Glucose 91 70 - 100 mg/dL LAB CHEMISTRY METHOD 07/29/2024 10:01 AM [facility] BUN 22 5 - 25 mg/dL LAB CHEMISTRY METHOD 07/29/2024 10:01 AM [facility] Creatinine 0.87 0.50 - 1.10 mg/dL LAB CHEMISTRY METHOD 07/29/2024 10:01 AM [facility] eGFR 69 >=60 mL/min/1. 73m2 LAB CHEMISTRY METHOD 07/29/2024 10:01 AM [facility] Comment:Calculation based on the??Chronic Kidney Disease Epidemiology Collaboration (CKD-EPI) equation refit??without adjustment for race. BUN/Creatinine Ratio 25.3 LAB CHEMISTRY METHOD 07/29/2024 10:01 AM [facility] Calcium 8.8 8.5 - 10.5 mg/dL LAB CHEMISTRY METHOD 07/29/2024 10:01 AM [facility] AST (SGOT) 18 10 - 42 unit/L LAB CHEMISTRY METHOD 07/29/2024 10:01 AM [facility] ALT (SGPT) 14 10 - 60 unit/L LAB CHEMISTRY METHOD 07/29/2024 10:01 AM [facility] Alkaline Phosphatase 59 42 - 121 unit/L LAB CHEMISTRY METHOD 07/29/2024 10:01 AM [facility] Total Protein 5.2(L) 6.0 - 8.0 g/dL LAB CHEMISTRY METHOD 07/29/2024 10:01 AM [facility] Albumin 2.3(L) 3.2 - 5.0 g/dL LAB CHEMISTRY METHOD 07/29/2024 10:01 AM [facility] Total Bilirubin 0.5 0.0 - 1.4 mg/dL LAB CHEMISTRY METHOD 07/29/2024 10:01 AM [facility] Blood Venous blood specimen / Unknown Venipuncture / Unknown 07/29/2024 5:32 AM EST 07/29/2024 8:28 AM EST us Brian Avalos MD LAB BLOOD ORDERABLES Final Res ult [facility] [address] [place] [address], documented in this encounter Visit Diagnoses Diagnosis Other specified arthritis, unspecified site documented in this encounter Care Teams Hide Dyer Relationship Specialty Start Date End Date Judy Mack MD [address] [facility] [address] [place] [address] PCP - General Internal Medicine 06/25/17 documented as of this encounter
--- OUTSIDE RECORDS SUMMARY | 2025-01-11 14:00 | XMS_ITS | Encounter Summary ---
Author Organization [facility] Address [address] [place] [address] Care Team Providers Care Finance Intern Name Role Phone Chen Pop Primary Care Provider [phone] Encounter Details Date Type Department Care Team (Late st Contact Info) Description 07/06/2024 [employer] Message Intial Department [address] [place] [address] Mychart, Generic Provider [address] [place] [address] Questionnaire Submission Social History Tobacco Use [...] PM EDT Follow-Up CC [facility] AT [address] [facility] [address] [place] [address] Saqib Santos J.P., MD [address] [place] [address] documented as of this encounter Visit Diagnoses Not on filedocumented in this encounter Care Teams Finance Intern Relationship Specialty Start Date End Date Chen Pop [address] [place] [address] PCP - General Internal Medicine 05/01/24 documented as of this encounter
--- OUTSIDE RECORDS SUMMARY | 2025-01-11 14:00 | XMS_ITS | Encounter Summary ---
Author Organization [facility] Address [address] [place] [address] Care Team Providers Care Refrigerated National Truck Driver Name Role Phone Chen Pop Primary Care Provider [phone] Encounter Details Date Type Department Care Team (Late st Contact Info) Description 07/06/2024 [employer] Message Intial Department [address] [place] [address] Mychart, Generic Provider [address] [place] [address] Questionnaire Submission Social History Tobacco Use [...] PM EDT Follow-Up CC [facility] AT [address] [facility] [address] [place] [address] Saqib Santos J.P., MD [address] [place] [address] documented as of this encounter Visit Diagnoses Not on filedocumented in this encounter Care Teams Refrigerated National Truck Driver Relationship Specialty Start Date End Date Chen Pop [address] [place] [address] PCP - General Internal Medicine 05/01/24 documented as of this encounter
--- OUTSIDE RECORDS SUMMARY | 2025-01-11 14:00 | XMS_ITS | Referral Summary ---
Author Organization [facility] Address [address] [place] [address] Care Team Providers Care Damper Worker Name Role Phone Lorraine Popanna Primary Care Provider [phone] Encounters Date Type Department Care Team Description 01/11/2025 Telephone [facility] [address] [place] [address] Telephone Intake, Staff PAC_Patient Request Call Back_[place] 12/22/2024 Telephone [address] [address] [address] Telephone Intake, Staff PAC General Info [place] 12/03/2024 3:45 PM EDT Telehealth CC [facility] AT [address] [facility] [address] [place] [address] Saqib Santos J.P., MD Arthritis of left knee (Primary Dx); Arthrofibrosis of knee joint, right; History of total right knee replacement; History of total left knee replacement 11/30/2024 [address] [place] [address] Saqib Santos J.P., MD 11/09/2024 7:37 AM EST - 11/12/2024 4:10 PM EST Hospital Encounter [facility] [address] [place] [address] Saqib Santos J.P., MD Primary localized osteoarthritis of right knee (Primary Dx); Primary osteoarthritis of left knee Discharge Disposition: Inpatient Rehab Facility (IRF) (62) 11/09/2024 9:40 AM EST - 11/09/2024 12:25 PM EST Surgery [facility] Day Surgery [address] [place] [address] Saqib Santos J.P., MD ARTHROPLASTY, KNEE, CONDYLE AND PLATEAU; MEDIAL AND LATERAL COMPARTMENTS WITH OR WITHOUT PATELLA RESURFACING (TOTAL KNEE ARTHROPLASTY) [51064 (CPT??)] 11/09/2024 9:59 AM EST Anesthesia Event [facility] Day Surgery [address] [place] [address] Jimmy Liu MD Foley, Joseph P, MD 10/29/2024 Prep for Case [facility] [address] [address] Saqib Santos J.P., MD 10/29/2024 1:00 PM EST [facility] [address] [address] Saqib Santos J.P., MD Arthritis of left knee (Primary Dx); Arthrofibrosis of knee joint, right 10/27/2024 myChart Message Intial Department [address] [place] [address] Mychart, Generic Provider Questionnaire Submission 10/27/2024 myChart Message Intial Department [address] [place] [address] Mychart, Generic Provider Questionnaire Submission 10/27/2024 myChart Message Intial Department [address] [place] [address] Mychart, Generic Provider Questionnaire Submission 10/27/2024 myChart Message Intial Department [address] [place] [address] Mychart, Generic Provider Questionnaire Submission 10/26/2024 myChart Message Intial Department [address] [place] [address] Mychart, Generic Provider Questionnaire Submission 10/26/2024 myChart Message [facility] Surgery [address] [place] [address] Mychart, Generic Provider Questionnaire due soon 10/24/2024 myChart Message Intial Department [address] [place] [address] Mychart, Generic Provider Questionnaire Submission 10/24/2024 myChart Message Intial Department [address] [place] [address] Mychart, Generic Provider Questionnaire Submission 10/22/2024 myChart Message [facility] [address] [address] Michelt, Generic Provider Surgery Paperwork 10/21/2024 11:35 AM EST Ancillary Procedure [facility] [address] [address] History of total right knee replacement 10/21/2024 11:40 AM EST Follow-Up [facility] [address] [address] Saqib Santos J.P., MD Primary osteoarthritis of left knee (Primary Dx); History of total right knee replacement 10/20/2024 Telephone [facility] [address] [address] Saqib Santos J.P., MD from Last 3 Months Allergies No known active allergies Medications DULoxetine DR (CYMBALTA) 60 mg capsule Take 60 mg by mouth once a day. Active acyclovir (ZOVIRAX) 400 mg tablet Take 400 mg by mouth 2 times a day. Active lisinopriL (PRINIVIL,ZESTR IL) 2.5 mg tablet Take 2.5 mg by mouth once a day. Active gabapentin (NEURONTIN) 600 mg tablet Take 600 mg by mouth 2 times a day. Active calcium carbonate (CALCIUM 500 ORAL) Take 1,000 mg by mouth once a day. Active ERGOCALCIFEROL, VITAMIN D2, ORAL Take by mouth [...] ok to take Saturday before surgery. Active prochlorperazin e (COMPAZINE) 5 mg tablet Take 10 mg [...] Additional Information Patient not taking.Reported on 10/29/2024 cyclobenzaprine (FLEXERIL) 10 mg tablet TAKE 1 TABLET (10 MG TOTAL) BY MOUTH 3 TIMES A DAY NEEDED FOR MUSCLE SPASMS FOR UP TO 10 DAYS 30 tablet 5 Active aspirin 81 mg EC tablet Take 1 tablet (81 mg total) by mouth 2 times daily after meals. 5 Active rivaroxaban (XARELTO) 10 mg tablet Take 1 tablet (10 mg total) by mouth once a day. Do not start the ASA until you have competed this prescription 5 Active Active Problems Problem Noted Date Diagnosed [...] PM EDT Follow-Up CC [facility] AT [address] [facility] [address] [place] [address] Saqib Santos J.P., MD [address] [place] [address] Medical Devices Implanted Type Area Broadcast Producer Device Identifier Shelf Expiration Date Model / Serial / Lot Patella Asymmetric Metal Backed Tritanium Size A32 [id number] Tritanium - [id number] Implanted:Qty: 1 on 07/20/2024 by Saqib Santos J.P., MD at [facility] Implant Right: Knee CHRISTIE [id number] 04/09/2029 5552-L-32 0 / / [id number] Insert Tibial Bearing Size 4 11mm Triathlon X3 - [id number] Implanted:Qty: 1 on 07/20/2024 by Saqib Santos J.P., MD at [facility] Implant Right: Knee CHRISTIE [id number] 03/27/2029 5531-G-41 1-E / / [id number] Component Femoral Knee Cruciate Retaining Right Size 4 - [id number] Implanted:Qty: 1 on 07/20/2024 by Saqib Santos J.P., MD at [facility] Implant Right: Knee CHRISTIE [id number] 04/25/2029 5517-F-40 2 / / [id number] Baseplate Tritanium Size 4 Triathlon - [id number] Implanted:Qty: 1 on 07/20/2024 by Saqib Santos J.P., MD at [facility] Implant Right: Knee CHRISTIE [id number] 03/02/2029 5536-B-40 0 / / [id number] Component Femoral Cruciate Retaining Beaded Left Size 4 Triathlon - [id number] Implanted:Qty: 1 on 11/09/2024 by Saqib Santos J.P., MD at [facility] Implant Left: Knee CHRISTIE [id number] 01/22/2029 5517-F-40 1 / / [id number] Baseplate Tritanium Size 4 Triathlon - [id number] Implanted:Qty: 1 on 11/09/2024 by Saqib Santos J.P., MD at [facility] Implant Left: Knee CHRISTIE [id number] 08/27/2029 5536-B-40 0 / / [id number] Patella Asymmetric Metal Backed Tritanium Size A32 [id number] Tritanium - [id number] Implanted:Qty: 1 on 11/09/2024 by Saqib Santos J.P., MD at [facility] Implant Left: Knee CHRISTIE [id number] 01/21/2029 5552-L-32 0 / / [id number] Tibial Bearing Insert Size 4 9mm Triathlon - [id number] Implanted:Qty: 1 on 11/09/2024 by Saqib Santos J.P., MD at [facility] Implant Left: Knee CHRISTIE [id number] 06/18/2029 5531-G-40 9-E / / [id number] Procedures * Due to [place] [employer] law, this organization might not be sharing [...] Last 3 Months Results * Due to [place] [employer] law, this organization might not be sharing negative HIV tests. * (ABNORMAL) CBC Auto Differential (11/10/2024 10:17 AM EST) WBC 10.2 3.8 - 10.8 10*3/uL 11/10/2024 11:23 AM EST [facility] RBC 3.78(L) 3.80 - 5.10 10*6/uL 11/10/2024 11:23 AM [facility] Hemoglobin 11.1(L) 11.7 - 15.5 g/dL 11/10/2024 11:23 AM [facility] Hematocrit 34.6(L) 35.0 - 45.0 % 11/10/2024 11:23 AM [facility] MCV 91.5 80.0 - 100.0 fL 11/10/2024 11:23 AM [facility] MCH 29.4 27.0 - 33.0 pg 11/10/2024 11:23 AM [facility] MCHC 32.1 32.0 - 36.0 g/dL 11/10/2024 11:23 AM [facility] RDW 14.0 11.0 - 15.0 % 11/10/2024 11:23 AM [facility] Platelets 183 140 - 400 10*3/uL 11/10/2024 11:23 AM [facility] MPV 9.6 7.5 - 12.5 fL 11/10/2024 11:23 AM [facility] Neutrophil % 87.7 % 11/10/2024 11:23 AM [facility] Immature Grans % 0.4 0.0 - 0.9 % 11/10/2024 11:23 AM EST [facility] Lymphocyte % 5.6 % 11/10/2024 11:23 AM [facility] Monocyte % 6.2 % 11/10/2024 11:23 AM [facility] Eosinophil % 0.0 % 11/10/2024 11:23 AM [facility] Basophil % 0.1 % 11/10/2024 11:23 AM [facility] Neutrophil # 8.90(H) 1.50 - 7.80 10*3/uL 11/10/2024 11:23 AM EST [facility] Immature Grans # 0.04(H) <=0.03 10*3/uL 11/10/2024 11:23 AM EST [facility] Lymphocyte # 0.60(L) 0.85 - 3.90 10*3/uL 11/10/2024 11:23 AM EST [facility] Monocyte # 0.60 0.20 - 0.95 10*3/uL 11/10/2024 11:23 AM EST [facility] Eosinophil # <0.03 0.02 - 0.50 10*3/uL 11/10/2024 11:23 AM EST [facility] Basophil # <0.03 0.00 - 0.20 10*3/uL 11/10/2024 11:23 AM EST [facility] nRBC % 0.0 /100 WBCs 11/10/2024 11:23 AM EST [facility] nRBC # <0.01 <0.01 10*3/uL 11/10/2024 11:23 AM EST [facility] Blood Structure of peripheral vein / Unknown Venipuncture / Unknown 11/10/2024 10:17 AM EST 11/10/2024 10:32 AM EST us Saqib Santos MD LAB BLOOD ORDERABLES Final R esult [facility] [address] [place] [address], * (ABNORMAL) Basic Metabolic Panel (11/10/2024 10:17 AM EST) Only the most recent of2 resultswithin the time period is included. NA 135 135 - 145 mmol/L 11/10/2024 11:10 AM [facility] K 4.7 3.5 - 5.3 mmol/L 11/10/2024 11:10 AM [facility] Cl 100 98 - 107 mmol/L 11/10/2024 11:10 AM [facility] CO2 25 22 - 32 mmol/L 11/10/2024 11:10 AM EST [facility] BUN 17 7 - 23 mg/dL 11/10/2024 11:10 AM [facility] Creatinine 1.13 0.50 - 1.20 mg/dL 11/10/2024 11:10 AM [facility] Glucose 256(H) 65 - 99 mg/dL 11/10/2024 11:10 AM EST [facility] Calcium 8.7 8.6 - 10.5 mg/dL 11/10/2024 11:10 AM [facility] Anion Gap 10 5 - 15 11/10/2024 11:10 AM [facility] eGFR 50(L) >=60 mL/min/1. 73m2 11/10/2024 11:10 AM [facility] Comment:The estimated glomer ular filtration [...] ORDERABLES Final R esult Performing Organization Address City/State/[facility] Co de Phone Number [facility] [address] [place] [address], [place] * X-Ray Knee Left 1 or [...] obtain the completed interpretation. ? Workstation ID: [id number] Narrative 11/09/2024 2:58 PM EST COMPARISON: ??06/04/2024. ?? FINDINGS AND Resulting Agency Comment [id number] Procedure Note Marlena Lakhani MD - 11/09/2024 [...] possible to obtain thecompleted interpretation. Workstation ID: [id number] Saqib Santos MD IMG XR PROCEDURES Final Resu lt * Tissue Exam (11/09/2024 10:55 AM EST) Final Diagnosis Bone and Tissue, Left Knee: - Osteoarthritis with osteophyte formation and bony eburnation. [facility] MANUAL 11/16/2024 12:54 PM EDT [facility] at 1254 EDT Clinical History Pre-op diagnosis: Primary osteoarthritis of left knee [M17.12] [facility] MANUAL 11/16/2024 12:54 PM EDT [facility] Gross Description 1. [...] The margins are flat. A sales representative womens health section is submitted in cassette 1A after fixation and decalcification. [facility] MANUAL 11/16/2024 12:54 PM EDT [facility] Gross Description User Grossing complete by Patel Sutherland on 11/09/2024 3:23 PM [facility] MANUAL 11/16/2024 12:54 PM EDT [facility] Embedded Images [facility] MANUAL 11/16/2024 12:54 PM EDT [facility] Resulting Agency Case was signed out at [facility], Department of Pathology, [facility] 3 [facility] [id number] [facility] MANUAL 11/16/2024 12:54 PM EDT [facility] Report Header Surgical Pathology Report ? Case: [id number] ? Authorizing Provider: ??Saqib Santos MD ? Collected: ? 11/09/2024 1055 ? Ordering Location: ? [facility]- ?Received: ?11/09/2024 1308 ? [facility] ? Surgery ? Pathologist: ? Campos Saini MD ? Specimen: ?Knee, Left, LEFT KNEE BONE AND TISSUE ? 11/16/2024 12:54 PM EDT [facility] Bone Structure of left knee region / Unknown 11/09/2024 10:55 AM EST 11/09/2024 1:08 PM EST Comment:Pre-op diagnosis: Primary osteoarthritis of left knee [M17.12] us Saqib Santos MD LAB PATHOLOGY/CYTOLOGY ORDER DAREN Final Result [facility] [address] [place] [address], [place] * OR AN PERIPHERAL BLOCK POST-OP PAIN, OR AN PAIN BLOCK AT SURGEON REQUEST (11/09/2024 9:40 AM EST) Jimmy Avilez MD - 11/09/2024 9:40 AM EST Jimmy [...] performed Peripheral Block Ultrasound #1 Probe: Linear [id number] Patient position: supine Prep: ChloraPrep Patient monitoring: [...] (MRSA) Culture Screen (10/29/2024 2:13 PM EST) Pathologist [facility] Culture No methicillin resistant Staphylococcus aureus (MRSA) isolated. 10/31/2024 5:56 AM EST [facility] Swab Nasal structure / Unknown Non-Blood Collection / Unknown 10/29/2024 2:13 PM EST 10/29/2024 2:13 PM EST Narrative [facility] - 10/31/2024 5:56 AM EST [facility] Received Date: MICRO NUMBER: [id number] SPECIMEN QUALITY: Adequate SOURCE: SWAB NOSE STATUS: FINAL Saqib Santos MD LAB MICROBIOLOGY - GENERAL O RDERABLES Final Result [facility] [address] [facility] [address], [place] [address], [facility] [address] [facility] [address], [place] [address], * CBC (10/29/2024 2:04 PM EST) Pathologist [facility] WBC 5.1 3.8 - 10.8 10*3/uL 10/29/2024 2:25 PM EST [facility] RBC 4.30 3.80 - 5.10 10*6/uL 10/29/2024 2:25 PM EST [facility] Hemoglobin 12.9 11.7 - 15.5 g/dL 10/29/2024 2:25 PM EST [facility] Hematocrit 40.0 35.0 - 45.0 % 10/29/2024 2:25 PM EST [facility] MCV 93.0 80.0 - 100.0 fL 10/29/2024 2:25 PM EST [facility] MCH 30.0 27.0 - 33.0 pg 10/29/2024 2:25 PM EST [facility] MCHC 32.3 32.0 - 36.0 g/dL 10/29/2024 2:25 PM EST [facility] RDW 13.9 11.0 - 15.0 % 10/29/2024 2:25 PM EST [facility] Platelets 277 140 - 400 10*3/uL 10/29/2024 2:25 PM EST [facility] MPV 9.2 7.5 - 12.5 fL 10/29/2024 2:25 PM EST [facility] Blood Structure of peripheral vein / Unknown Venipuncture / Unknown 10/29/2024 2:04 PM EST 10/29/2024 2:04 PM EST Ashok Potter MD LAB BLOOD ORDERABLES Final Res ult [facility] [address] [place] [address], [place] * Type and screen (10/29/2024 2:04 PM [...] EST us Ashok Potter MD LAB BLOOD BANK TEST ORDERABLES Edited Result - Final BLOOD BANK [facility] [address] [place] [address], [place] [phone] * X-Ray Knee Right 4+ Views (10/21/2024 11:30 AM EST) Anatomical Region Laterality Modality Lower Extremities, Knee Right Computed Radiography Saqib Santos MD IMG XR PROCEDURES Final Resu lt from Last 3 Months Insurance [facility] MEDIC[employer] [facility] Advance Directives Documents on File Type Date Recorded Patient Research Associate Quality Control Qc Expl anation Health Care Proxy 07/02/2024 1:51 PM [facility] Health Care Proxy * Full Code (Latest Code Status on File) Date Activated Date Inactivated Comments 11/09/2024 12:05 PM 11/12/2024 6:25 PM * Full Code Date Activated Date Inactivated Comments 07/20/2024 12:55 PM 07/22/2024 3:45 PM Care Teams Damper Worker Relationship Specialty Start Date End Date Chen Pop 1960 [place], [place] [id number] PCP - General Internal Medicine 05/01/24
--- OUTSIDE RECORDS SUMMARY | 2025-01-11 14:00 | XMS_ITS | Encounter Summary ---
Author Organization [facility] Address [address] [place] [address] Care Team Providers Care Offset Press Operator Helper Name Role Phone Judy Mack MD Primary Care Provider [phone] Encounter Details Date Type Department Care Team (Late st Contact Info) Description 07/31/2024 Lab Requisition [facility] - Main Lab [address] [facility] [place] [address] Brian Avalos MD [address] [place] [address] Encounter for other general examination Social History [...] AM EST) WBC 4.7(L) 4.8 - 10.8 K/[facility] LAB HEMETOLOGY METHOD 07/31/2024 8:37 AM [facility] LAB RBC 2.90(L) 3.80 - 4.80 M/[facility] LAB HEMETOLOGY METHOD 07/31/2024 8:37 AM [facility] LAB Hemoglobin 9.0(L) 11.5 - 16.0 g/dL LAB HEMETOLOGY METHOD 07/31/2024 8:37 AM [facility] LAB Hematocrit 29.1(L) 35.0 - 47.0 % LAB HEMETOLOGY METHOD 07/31/2024 8:37 AM [facility] LAB MCV 101.4(H) 79.0 - 98.0 FL LAB HEMETOLOGY METHOD 07/31/2024 8:37 AM [facility] LAB MCH 31.4 27.0 - 32.0 pcg LAB HEMETOLOGY METHOD 07/31/2024 8:37 AM [facility] LAB MCHC 30.9(L) 32.0 - 37.0 g/dL LAB HEMETOLOGY METHOD 07/31/2024 8:37 AM [facility] LAB RDW 14.1 11.0 - 15.0 % LAB HEMETOLOGY METHOD 07/31/2024 8:37 AM [facility] LAB Platelets 299 130 - 400 K/[facility] LAB HEMETOLOGY METHOD 07/31/2024 8:37 AM [facility] LAB MPV 10.4 7.0 - 11.0 FL LAB HEMETOLOGY METHOD 07/31/2024 8:37 AM [facility] LAB NRBC 0.0 <1.0 % LAB HEMETOLOGY METHOD 07/31/2024 8:37 AM [facility] LAB NRBC Absolute 0.00 <0.10 K/[facility] LAB HEMETOLOGY METHOD 07/31/2024 8:37 AM [facility] LAB Neutrophils Relative 59.5 % LAB HEMETOLOGY METHOD 07/31/2024 8:37 AM [facility] LAB Lymphocytes Relative 25.3 % LAB HEMETOLOGY METHOD 07/31/2024 8:37 AM [facility] LAB Monocytes Relative 11.8 % LAB HEMETOLOGY METHOD 07/31/2024 8:37 AM [facility] LAB Eosinophils Relative 1.7 % LAB HEMETOLOGY METHOD 07/31/2024 8:37 AM [facility] LAB Basophils Relative 0.6 % LAB HEMETOLOGY METHOD 07/31/2024 8:37 AM [facility] LAB Immature Granulocytes Relative 1.1 % LAB HEMETOLOGY METHOD 07/31/2024 8:37 AM [facility] LAB Neutrophils Absolute 2.82 1.50 - 7.00 K/mcL LAB HEMETOLOGY METHOD 07/31/2024 8:37 AM [facility] LAB Lymphocytes Absolute 1.20 1.00 - 5.00 K/mcL LAB HEMETOLOGY METHOD 07/31/2024 8:37 AM [facility] LAB Monocytes Absolute 0.56 0.20 - 1.00 K/mcL LAB HEMETOLOGY METHOD 07/31/2024 8:37 AM [facility] LAB Eosinophils Absolute 0.08 0.00 - 0.50 K/mcL LAB HEMETOLOGY METHOD 07/31/2024 8:37 AM [facility] LAB Basophils Absolute 0.03 0.00 - 0.20 K/mcL LAB HEMETOLOGY METHOD 07/31/2024 8:37 AM [facility] LAB Immature Granulocytes Absolute 0.05(H) 0.00 - 0.03 K/mcL LAB HEMETOLOGY METHOD 07/31/2024 8:37 AM [facility] LAB Blood Venous blood specimen / Unknown Venipuncture / Unknown 07/31/2024 4:39 AM EST 07/31/2024 7:14 AM EST us Brian Avalos MD LAB BLOOD ORDERABLES Final Res ult [facility] LAB [address] [place] [address], [place] [phone] * (ABNORMAL) Basic metabolic panel (07/31/2024 4:39 AM EST) Sodium 141 133 - 145 mmol/L LAB CHEMISTRY METHOD 07/31/2024 8:55 AM EST [facility] LAB Potassium 4.4 3.5 - 5.5 mmol/L LAB CHEMISTRY METHOD 07/31/2024 8:55 AM [facility] LAB Chloride 107 96 - 110 mmol/L LAB CHEMISTRY METHOD 07/31/2024 8:55 AM [facility] LAB CO2 30 21 - 32 mmol/L LAB CHEMISTRY METHOD 07/31/2024 8:55 AM [facility] LAB Anion Gap 4 3 - 11 LAB CHEMISTRY METHOD 07/31/2024 8:55 AM [facility] LAB Glucose 82 70 - 100 mg/dL LAB CHEMISTRY METHOD 07/31/2024 8:55 AM [facility] LAB BUN 20 5 - 25 mg/dL LAB CHEMISTRY METHOD 07/31/2024 8:55 AM [facility] LAB Creatinine 0.92 0.50 - 1.10 mg/dL LAB CHEMISTRY METHOD 07/31/2024 8:55 AM [facility] LAB eGFR 64 >=60 mL/min/1. 73m2 LAB CHEMISTRY METHOD 07/31/2024 8:55 AM [facility] LAB Comment:Calculation based on the??Chronic Kidney Disease Epidemiology Collaboration (CKD-EPI) equation refit??without adjustment for race. BUN/Creatinine Ratio 21.7 LAB CHEMISTRY METHOD 07/31/2024 8:55 AM [facility] LAB Calcium 8.4(L) 8.5 - 10.5 mg/dL LAB CHEMISTRY METHOD 07/31/2024 8:55 AM EST [facility] LAB Blood Venous blood specimen / Unknown Venipuncture / Unknown 07/31/2024 4:39 AM EST 07/31/2024 7:14 AM EST us Brian Avalos MD LAB BLOOD ORDERABLES Final Res ult [facility] LAB [address] [place] [address], documented in this encounter Visit Diagnoses Diagnosis Encounter for other general examination documented in this encounter Care Teams Offset Press Operator Helper Relationship Specialty Start Date End Date Judy Mack MD [address] [facility] [address] [place] [address] PCP - General Internal Medicine 06/25/17 documented as of this encounter
--- OUTSIDE RECORDS SUMMARY | 2025-01-11 14:00 | XMS_ITS | Encounter Summary ---
Author Organization [facility] Address [address] [place] [address] Care Team Providers Care Trust Operations Assistant Name Role Phone Judy Mack MD Primary Care Provider [phone] Encounter Details Date Type Department Care Team (Late st Contact Info) Description 07/23/2024 Lab Requisition [facility] - Main Lab 299 [facility] [place] [address] Brian Avalos MD [address] [place] [address] Pain in right knee Social History Tobacco [...] CBC auto differential (07/23/2024 7:18 AM EST) [facility] WBC 7.5 4.8 - 10.8 K/mcL LAB HEMETOLOGY METHOD 07/23/2024 9:03 AM [facility] LAB RBC 3.40(L) 3.80 - 4.80 M/mcL LAB HEMETOLOGY METHOD 07/23/2024 9:03 AM [facility] LAB Hemoglobin 11.0(L) 11.5 - 16.0 g/dL LAB HEMETOLOGY METHOD 07/23/2024 9:03 AM [facility] LAB Hematocrit 34.0(L) 35.0 - 47.0 % LAB HEMETOLOGY METHOD 07/23/2024 9:03 AM [facility] LAB MCV 99.4(H) 79.0 - 98.0 FL LAB HEMETOLOGY METHOD 07/23/2024 9:03 AM [facility] LAB MCH 32.2(H) 27.0 - 32.0 pcg LAB HEMETOLOGY METHOD 07/23/2024 9:03 AM [facility] LAB MCHC 32.4 32.0 - 37.0 g/dL LAB HEMETOLOGY METHOD 07/23/2024 9:03 AM [facility] LAB RDW 13.6 11.0 - 15.0 % LAB HEMETOLOGY METHOD 07/23/2024 9:03 AM [facility] LAB Platelets 185 130 - 400 K/mcL LAB HEMETOLOGY METHOD 07/23/2024 9:03 AM [facility] LAB MPV 10.4 7.0 - 11.0 FL LAB HEMETOLOGY METHOD 07/23/2024 9:03 AM [facility] LAB NRBC 0.0 <1.0 % LAB HEMETOLOGY METHOD 07/23/2024 9:03 AM [facility] LAB NRBC Absolute 0.00 <0.10 K/mcL LAB HEMETOLOGY METHOD 07/23/2024 9:03 AM [facility] LAB Neutrophils Relative 76.7 % LAB HEMETOLOGY METHOD 07/23/2024 9:03 AM [facility] LAB Lymphocytes Relative 10.0 % LAB HEMETOLOGY METHOD 07/23/2024 9:03 AM [facility] LAB Monocytes Relative 11.9 % LAB HEMETOLOGY METHOD 07/23/2024 9:03 AM [facility] LAB Eosinophils Relative 0.4 % LAB HEMETOLOGY METHOD 07/23/2024 9:03 AM [facility] LAB Basophils Relative 0.3 % LAB HEMETOLOGY METHOD 07/23/2024 9:03 AM [facility] LAB Immature Granulocytes Relative 0.7 % LAB HEMETOLOGY METHOD 07/23/2024 9:03 AM [facility] LAB Neutrophils Absolute 5.76 1.50 - 7.00 K/mcL LAB HEMETOLOGY METHOD 07/23/2024 9:03 AM [facility] LAB Lymphocytes Absolute 0.75(L) 1.00 - 5.00 K/mcL LAB HEMETOLOGY METHOD 07/23/2024 9:03 AM [facility] LAB Monocytes Absolute 0.89 0.20 - 1.00 K/mcL LAB HEMETOLOGY METHOD 07/23/2024 9:03 AM [facility] LAB Eosinophils Absolute 0.03 0.00 - 0.50 K/mcL LAB HEMETOLOGY METHOD 07/23/2024 9:03 AM [facility] LAB Basophils Absolute 0.02 0.00 - 0.20 K/mcL LAB HEMETOLOGY METHOD 07/23/2024 9:03 AM [facility] LAB Immature Granulocytes Absolute 0.05(H) 0.00 - 0.03 K/mcL LAB HEMETOLOGY METHOD 07/23/2024 9:03 AM [facility] LAB Blood Venous blood specimen / Unknown Venipuncture / Unknown 07/23/2024 7:18 AM EST 07/23/2024 8:08 AM EST Brian Avalos MD LAB BLOOD ORDERABLES Final Res ult [facility] LAB [address] [place] [address], [place] [phone] * Magnesium (07/23/2024 7:18 AM EST) Pathologist [facility] Magnesium 2.1 1.9 - 2.6 mg/dL LAB CHEMISTRY METHOD 07/23/2024 9:38 AM EST [facility] LAB Blood Venous blood specimen / Unknown Venipuncture / Unknown 07/23/2024 7:18 AM EST 07/23/2024 8:08 AM EST Brian Avalos MD LAB BLOOD ORDERABLES Final Res ult Performing Organization Address City/[facility]/ZIP Co de Phone Number [facility] LAB [address] [place] [address], [place] [phone] * (ABNORMAL) Comprehensive metabolic panel (07/23/2024 7:18 AM EST) [facility] Sodium 136 133 - 145 mmol/L LAB CHEMISTRY METHOD 07/23/2024 9:38 AM [facility] LAB Potassium 4.3 3.5 - 5.5 mmol/L LAB CHEMISTRY METHOD 07/23/2024 9:38 AM [facility] LAB Chloride 103 96 - 110 mmol/L LAB CHEMISTRY METHOD 07/23/2024 9:38 AM EST [facility] LAB CO2 28 21 - 32 mmol/L LAB CHEMISTRY METHOD 07/23/2024 9:38 AM [facility] LAB Anion Gap 5 3 - 11 LAB CHEMISTRY METHOD 07/23/2024 9:38 AM EST [facility] LAB Glucose 92 70 - 100 mg/dL LAB CHEMISTRY METHOD 07/23/2024 9:38 AM [facility] LAB BUN 14 5 - 25 mg/dL LAB CHEMISTRY METHOD 07/23/2024 9:38 AM [facility] LAB Creatinine 0.96 0.50 - 1.10 mg/dL LAB CHEMISTRY METHOD 07/23/2024 9:38 AM [facility] LAB eGFR 61 >=60 mL/min/1. 73m2 LAB CHEMISTRY METHOD 07/23/2024 9:38 AM [facility] LAB Comment:Calculation based on the??Chronic Kidney Disease Epidemiology Collaboration (CKD-EPI) equation refit??without adjustment for race. BUN/Creatinine Ratio 14.6 LAB CHEMISTRY METHOD 07/23/2024 9:38 AM [facility] LAB Calcium 7.8(L) 8.5 - 10.5 mg/dL LAB CHEMISTRY METHOD 07/23/2024 9:38 AM [facility] LAB AST (SGOT) 11 10 - 42 unit/L LAB CHEMISTRY METHOD 07/23/2024 9:38 AM [facility] LAB ALT (SGPT) 11 10 - 60 unit/L LAB CHEMISTRY METHOD 07/23/2024 9:38 AM [facility] LAB Alkaline Phosphatase 49 42 - 121 unit/L LAB CHEMISTRY METHOD 07/23/2024 9:38 AM [facility] LAB Total Protein 5.3(L) 6.0 - 8.0 g/dL LAB CHEMISTRY METHOD 07/23/2024 9:38 AM [facility] LAB Albumin 2.5(L) 3.2 - 5.0 g/dL LAB CHEMISTRY METHOD 07/23/2024 9:38 AM [facility] LAB Total Bilirubin 0.4 0.0 - 1.4 mg/dL LAB CHEMISTRY METHOD 07/23/2024 9:38 AM [facility] LAB Blood Venous blood specimen / Unknown Venipuncture / Unknown 07/23/2024 7:18 AM EST 07/23/2024 8:08 AM EST us Brian Avalos MD LAB BLOOD ORDERABLES Final Res ult [facility] LAB [address] [place] [address], [place] [phone] documented in this encounter Visit Diagnoses Diagnosis Pain in right knee documented in this encounter Care Teams Trust Operations Assistant Relationship Specialty Start Date End Date Judy Mack MD [address] [facility] [address] [place] [address] PCP - General Internal Medicine 06/25/17 documented as of this encounter
--- OUTSIDE RECORDS SUMMARY | 2025-01-11 14:00 | XMS_ITS | Encounter Summary ---
Author Organization [facility] Address [address] [place] [address] Care Team Providers Care Certified Indoor Environmentalist Name Role Phone Chen Pop Primary Care Provider [phone] Encounter Details Date Type Department Care Team (Late st Contact Info) Description 07/06/2024 [employer] Message Intial Department [address] [place] [address] Mychart, Generic Provider [address] [place] [address] Questionnaire Submission Social History Tobacco Use [...] PM EDT Follow-Up CC [facility] AT [address] [facility] ORTHO [address] [place] [address] Saqib Santos J.P., MD [address] [place] [address] documented as of this encounter Visit Diagnoses Not on filedocumented in this encounter Care Teams Certified Indoor Environmentalist Relationship Specialty Start Date End Date Chen Pop [address] [place] [address] PCP - General Internal Medicine 05/01/24 documented as of this encounter
--- OUTSIDE RECORDS SUMMARY | 2025-01-11 14:00 | XMS_ITS | Data Portability ---
Author Organization [facility] [employer] [facility] [employer] [address] Address [address] [place] [address] Care Team Providers Care Material Specialist Name Role Phone KIEL JACKSON Primary Care Provider [phone] DOMINIC WINN Academic Support Center Director Unavailable Assessment No assessment recorded. Plan of Treatment Reminders Order Date Submit Date Provider Last Modified By Organization Details Last Modified Time Details Appointments None recorded. Lab None recorded. Referral None recorded. Procedures None recorded. Surgeries None recorded. Imaging None recorded. Medication Orders prednisone 20 mg tablet 2022 023 [facility] #[id number], [address] [place], [address], 18:14:52 Allergy Relief (fluticason e) 50 mcg/actuati on nasal spray,suspe nsion 2022 023 [facility] #[id number], [address] [place], [address], 18:14:53 benzonatate 100 mg capsule 2022 023 [id number] [address] [place], [address], 18:14:53 Patient TargetsNo targets recorded. Patient Instructions Encounter Date Encounter Id Patient Instructions Last Modified By Organization Details Last Modified Time 11/18/2022 [id number] earache: care instructions Not available 11/18/2022 18:14:50 [...] care for yourself at home? Take an kohn-xdq-kjodsbq pain medicine. Avoid Ibuprofen, Aleve and Aspirin if . If the doctor prescribed antibiotics, take them as directed. Do not stop taking them just because you feel better. You need to take the full course of antibiotics. Be careful when taking jrkv-rpd-upgsvcc cold or influenza (flu) medicines and Tylenol [...] Address Organization Details Recorded Time Multiple myeloma 819143193 Active 2022 [facility] 3 17:53:44 Hypertensive disorder 28093791 Active 2022 JOHN CHALOROSEMARY Jackman [facility] [...] Updated DateTime 3 165.1 cm 25 kg/m2 70935.8 6 g 96 % 96 % 72 [...] 30 mcg/0.3 mL dose 2 completed JOHN CHLAO null, [place] - [facility] 11/18/2022 17:47:53 [...] SNOMED-CT Code Diagnosis ICD10 Code Diagnosis Note [id number] [address] [place] [address] 03/25/2016 11:14:20 03/25/2016 11:58:56 [id number] [address] [place] [address] 03/02/2018 16:03:13 03/02/2018 16:52:53 [id number] [address] [place] [address] 07/22/2021 15:33:18 07/22/2021 16:11:17 [id number] [address] [place] [address] 01/31/2018 09:28:34 01/31/2018 10:29:41 [id number] [address] [place] [address] 12/01/2018 18:58:33 12/01/2018 19:26:38 [id number] [address] [place] [address] 09/03/2016 11:54:52 09/03/2016 13:42:24 [id number] [address] [place] [address] 08/31/2020 11:01:29 08/31/2020 11:34:54 [id number] [address] [place] [address] 05/02/2016 10:40:45 05/02/2016 14:04:40 [id number] [address] [place] [address] 06/18/2019 11:15:53 06/18/2019 11:48:03 [id number] [address] [place] [address] 12/16/2016 17:56:52 12/16/2016 18:36:33 [id number] [address] [place] [address] 08/08/2018 08:24:52 08/08/2018 09:05:11 [id number] [address] [place] [address] 06/26/2017 13:50:56 06/26/2017 14:55:17 [id number] [address] [place] [address] 03/25/2018 09:24:49 03/25/2018 10:44:58 [id number] Tuan Jacques [place] [address] [place] [address] 11/18/2022 13:19:00 11/18/2022 18:19:29 Acute sinusitis 34131401 J01.90 Health Concerns Section Related Observation LastModified by Organization Detai ls LastModified Time None Recorded Concern Status LastModified by Organization Details LastModified Time None Recorded Advance Directives Directive None Recorded Payers Encounter Date Sequence Insurance Name Policy Number Policy Rod Covered Member ID Rod Member ID Guarantor Name 12/01/2018 1 MEDICARE B-[place]: [employer] Lillian Copeland [id number] Lillian Copeland 12/01/2018 2 [facility] [id number] 01 Lillian Copeland [id number] Lillian Copeland 06/18/2019 1 MEDICARE B-NH: [employer] Lillian Copeland [id number] Lillian Copeland 06/18/2019 2 [facility] [id number] 01 Lillian Copeland [id number] Lillian Copeland 08/31/2020 1 MEDICARE B-[place]: [employer] Lillian Copeland [id number] Lillian Copeland 08/31/2020 2 [facility] [id number] 01 Lillian Copeland [id number] Lillian Copeland 07/22/2021 1 MEDICARE B-NH: [facility] GOVERNMENT SERVICES Lillian Copeland [id number] Lillian Copeland 07/22/2021 2 [facility] [id number] 01 Lillian Copeland [id number] Lillian Copeland 11/18/2022 1 MEDICARE B-NH: [employer] Lillian Copeland [id number] Lillian Copeland 11/18/2022 2 [facility] [id number] 01 Lillian Copeland [id number] Lillian Copeland Notes Date Note Type Note Provider Name and Address Organization Details Recorded Time 11/18/2022 text/html CongestionReport ed bypatient.Notes:nasal congestion with post nasal drip x 3 days. denies nay fever or fever with chills. no SOB or respiratory distress.Ear Pain Brief HPIReported bypatient.Location:pain radiates to neck; bilateral Onset/Timing:intermitte nt pain; gradual onset Duration:occurs daily; sensation/episode variable length Quality:aching pain;sharp pain Severity:getting worse; current pain 5/10 Context:recent ear infection Alleviating factors:ototopical antibiotics: ; nasal steroid spray Aggravating factors:sinus infections; allergies; irrigation of ear Associated Symptoms:Cough;nasal congestion;nasal discharge Tuan Jacques NP [address] [place], [address], [place] - [facility] 11/18/2022 18:17:58 OBGyn Episode No OBEpisode recorded.
--- OUTSIDE RECORDS SUMMARY | 2025-01-11 14:01 | XMS_ITS | Encounter Summary ---
Author Organization [facility] Address [address] [place] [address] Care Team Providers Care Senior Business Objects Developer Name Role Phone Lorraine Popanna Primary Care Provider [phone] Encounter Details Date Type Department Care Team (Late st Contact Info) Description 10/26/2024 [employer] Message [facility] Surgery [address] [place] [address] [phone] everyArt, [facility] Provider [facility] [place] [address] Questionnaire due soon Social History [...] PM EDT Follow-Up CC [facility] AT [address] [facility] [address] [place] [address] Saqib Santos J.P., MD [address] [place] [address] documented as of this encounter Visit Diagnoses Not on filedocumented in this encounter Care Teams Senior Business Objects Developer Relationship Specialty Start Date End Date Chen Pop [address] [place] [address] PCP - General Internal Medicine 05/01/24 documented as of this encounter
--- OUTSIDE RECORDS SUMMARY | 2025-01-11 14:01 | XMS_ITS | Clinical Summary ---
Author Organization [facility] Address [address] [facility] [address] [place] [address] Phone Care Team Providers Care Self Pay Collector Name Role Phone Unavailable Primary Care Provider [...] Take 400 Units by mouth daily Active [place]-3 1000 MG capsule Take 1 capsule by [...] nighttime. Carefully continue Protonix as prescribed. Immunizations Immunization Administration Dates Next Due Pfizer SARS-COV-2 11/24/2020,11/03/2020 [...] Due Date Last Done Comments Pneumococcal Vaccine: 50+ Years (3 of 3 - PPSV23, PCV20 or PCV21) 06/30/2021 05/05/2021, 12/05/2018, 05/23/2011 Influenza Vaccine (Season Ended) 2025 06/21/2021, 06/14/2020, 07/08/2019, Additional history exists Hepatitis B Vaccine Aged Out No longe r eligible based on patient's age to complete this topic Insurance Medicare [facility] Medicare [facility]
--- OUTSIDE RECORDS SUMMARY | 2025-01-11 14:01 | XMS_ITS | Encounter Summary ---
Author Organization [facility] Address [address] [place] [address] Care Team Providers Care Seafood Fisherman Name Role Phone CarolinajoseriazChen Primary Care Provider [phone] Encounter Details Date Type Department Care Team (Late st Contact Info) Description 10/24/2024 [email or web address] Message Intial Department [address] [place] [phone] Mychart, Generic Provider [facility] [address] Questionnaire Submission Social History Tobacco [...] PM EDT Follow-Up CC [facility] AT [address] [facility] [address] [place] [address] Saqib Santos J.P., MD [address] [place] [address] documented as of this encounter Visit Diagnoses Not on filedocumented in this encounter Care Teams Seafood Fisherman Relationship Specialty Start Date End Date Chen Pop [facility] [place] [address] PCP - General Internal Medicine 05/01/24 documented as of this encounter
--- OUTSIDE RECORDS SUMMARY | 2025-01-11 14:01 | XMS_ITS | Encounter Summary ---
Author Organization [facility] Address [address] [place] [address] Care Team Providers Care Pie Dough Roller Name Role Phone CarolinajoseriazChen Primary Care Provider [phone] Encounter Details Date Type Department Care Team (Late st Contact Info) Description 10/27/2024 [employer] Message Intial Department [address] [place] [address] Mychart, Generic Provider [facility] [address] Questionnaire Submission Social History Tobacco [...] PM EDT Follow-Up CC [facility] AT [address] [facility] [address] [place] [address] Saqib Santos J.P., MD [address] [place] [address] documented as of this encounter Visit Diagnoses Not on filedocumented in this encounter Care Teams Pie Dough Roller Relationship Specialty Start Date End Date Chen Pop [place] [address] PCP - General Internal Medicine 05/01/24 documented as of this encounter
--- OUTSIDE RECORDS SUMMARY | 2025-01-11 14:01 | XMS_ITS | Encounter Summary ---
Author Organization [facility] Address [address] [place] [address] Care Team Providers Care Supervisor Model Making Name Role Phone CarolinajoseriazChen Primary Care Provider [phone] Encounter Details Date Type Department Care Team (Late st Contact Info) Description 10/24/2024 BIlprospekt Message Intial Department [address] [place] [address] Mychart, Generic Provider [facility] [place] [address] Questionnaire Submission Social History Tobacco [...] PM EDT Follow-Up CC [facility] AT [address] [facility] [address] [place] [address] Saqib Santos J.P., MD [address] [place] [address] documented as of this encounter Visit Diagnoses Not on filedocumented in this encounter Care Teams Supervisor Model Making Relationship Specialty Start Date End Date Chen Pop [facility] [place] [address] PCP - General Internal Medicine 05/01/24 documented as of this encounter
--- OUTSIDE RECORDS SUMMARY | 2025-01-11 14:01 | XMS_ITS | Encounter Summary ---
Author Organization [facility] Address [address] [place] [address] Care Team Providers Care Band Tacker Name Role Phone CarolinajoseriazChen Primary Care Provider [phone] Encounter Details Date Type Department Care Team (Late st Contact Info) Description 10/26/2024 Super Message Intial Department [address] [place] [address] Mychart, Generic Provider [facility] [place] [address] Questionnaire Submission Social History Tobacco [...] PM EDT Follow-Up CC [facility] AT [address] [facility] [address] [place] [address] Saqib Santos J.P., MD [address] [place] [address] documented as of this encounter Visit Diagnoses Not on filedocumented in this encounter Care Teams Band Tacker Relationship Specialty Start Date End Date Chen Pop [facility] [place] [address] PCP - General Internal Medicine 05/01/24 documented as of this encounter
--- OUTSIDE RECORDS SUMMARY | 2025-01-11 14:01 | XMS_ITS | Clinical Summary ---
Author Organization [facility] Address [address] [place] [address] Care Team Providers Care Sulfonation Equipment Operator Name Role Phone Chen Pop Primary Care Provider [phone] Allergies No known active allergies Medications DULoxetine [...] Type Department Care Team Description 01/11/2025 Telephone [facility] Orthopedics [address] [place] [address] Telephone Intake, Staff PAC_Patient Request Call Back_Pongor 12/22/2024 Telephone [facility] [address] [address] Telephone Intake, Staff PAC General Info [place] 12/03/2024 3:45 PM EDT Telehealth CC [facility] [address] [place] [address] Saqib Santos J.P., MD Arthritis of left knee (Primary Dx); Arthrofibrosis of knee joint, right; History of total right knee replacement; History of total left knee replacement 11/30/2024 Telephone [facility] [address] [address] Saqib Santos J.P., MD 11/09/2024 9:59 AM EST Anesthesia Event [facility] [address] [place] [address] Jimmy Liu MD Foley, Joseph P, MD 11/09/2024 9:40 AM EST - 11/09/2024 12:[address] [facility] [address] [place] [address] Saqib Santos J.P., MD ARTHROPLASTY, KNEE, CONDYLE AND PLATEAU; MEDIAL AND LATERAL COMPARTMENTS WITH OR WITHOUT PATELLA RESURFACING (TOTAL KNEE ARTHROPLASTY) [99246 (CPT??)] 11/09/2024 7:37 AM EST - 11/12/2024 4:10 PM EST Hospital Encounter [facility] 2 Medical Surgery Unit [address] [place] [address] Saqib Santos J.P., MD Primary localized osteoarthritis of right knee (Primary Dx); Primary osteoarthritis of left knee Discharge Disposition: Inpatient Rehab Facility (IRF) (62) 10/29/2024 1:00 PM EST [facility] [address] [place] [address] Saqib Santos J.P., MD Arthritis of left knee (Primary Dx); Arthrofibrosis of knee joint, right 10/29/2024 Prep for Case [facility] [address] [address] Saqib Santos J.P., MD 10/27/2024 myChart Message Intial Department [address] [place] [address] Mychart, Generic Provider Questionnaire Submission 10/27/2024 myChart Message Intial Department [address] [place] [address] Mychart, Generic Provider Questionnaire Submission 10/27/2024 myChart Message Intial Department [address] [place] [address] Mychart, Generic Provider Questionnaire Submission 10/27/2024 myChart Message Intial Department [address] [place] [address] Mychart, Generic Provider Questionnaire Submission 10/26/2024 myChart Message Intial Department [address] [place] [address] Mychart, Generic Provider Questionnaire Submission 10/26/2024 myChart Message [facility] Surgery [address] [place] [address] Mychart, Generic Provider Questionnaire due soon 10/24/2024 myChart Message Intial Department [address] [place] [address] Mychart, Generic Provider Questionnaire Submission 10/24/2024 myChart Message Intial Department [address] [place] [address] Mychart, Generic Provider Questionnaire Submission 10/22/2024 myChart Message [facility] [address] [address] Mychart, Generic Provider Surgery Paperwork 10/21/2024 11:40 AM EST Follow-Up [facility] [address] [address] Saqib Santos J.P., MD Primary osteoarthritis of left knee (Primary Dx); History of total right knee replacement 10/21/2024 11:35 AM EST Ancillary Procedure [facility] [address] [address] History of total right knee replacement 10/20/2024 Telephone [facility] [address] [address] Saqib Santos J.P., MD from Last 3 [...] PM EDT Follow-Up CC [facility] AT [address] [facility] [address] [place] [address] Saqib Santos J.P., MD [address] [place] [address] Health Maintenance Due Date Last Done Comments [...] this topic Medical Devices Implanted Type Area Medical Insurance Claims Processor Device Identifier Shelf Expiration Date Model / Serial / Lot Patella Asymmetric Metal Backed Tritanium Size A32 [id number] Tritanium - [id number] Implanted:Qty: 1 on 07/20/2024 by Saqib Santos J.P., MD at [facility] Implant Right: Knee CHRISTIE [id number] 04/09/2029 5552-L-32 0 / / [id number] Insert Tibial Bearing Size 4 11mm Triathlon X3 - [id number] Implanted:Qty: 1 on 07/20/2024 by Saqib Santos J.P., MD at [facility] Implant Right: Knee CHRISTIE [id number] 03/27/2029 5531-G-41 1-E / / [id number] Component Femoral Knee Cruciate Retaining Right Size 4 - [id number] Implanted:Qty: 1 on 07/20/2024 by Saqib Santos J.P., MD at [facility] Implant Right: Knee CHRISTIE [id number] 04/25/2029 5517-F-40 2 / / [id number] Baseplate Tritanium Size 4 Triathlon - [id number] Implanted:Qty: 1 on 07/20/2024 by Saqib Santos J.P., MD at [facility] Implant Right: Knee CHRISTIE [id number] 03/02/2029 5536-B-40 0 / / [id number] Component Femoral Cruciate Retaining Beaded Left Size 4 Triathlon - [id number] Implanted:Qty: 1 on 11/09/2024 by Saqib Santos J.P., MD at [facility] Implant Left: Knee CHRISTIE [id number] 01/22/2029 5517-F-40 1 / / [id number] Baseplate Tritanium Size 4 Triathlon - [id number] Implanted:Qty: 1 on 11/09/2024 by Saqib Santos J.P., MD at [facility] Implant Left: Knee CHRISTIE [id number] 08/27/2029 5536-B-40 0 / / [id number] Patella Asymmetric Metal Backed Tritanium Size A32 [id number] Tritanium - [id number] Implanted:Qty: 1 on 11/09/2024 by Saqib Santos J.P., MD at [facility] Implant Left: Knee CHRISTIE [id number] 01/21/2029 5552-L-32 0 / / [id number] Tibial Bearing Insert Size 4 9mm Triathlon - [id number] Implanted:Qty: 1 on 11/09/2024 by Saqib Santos J.P., MD at [facility] Implant Left: Knee CHRISTIE [id number] 06/18/2029 5531-G-40 9-E / / [id number] Procedures * Due to [place] state law, this organization might not be sharing negative HIV tests. Procedure Name Priority Date/Time Associated Diagnosis Comments CBC AUTO DIFFERENTIAL Routine 11/10/2024 10:17 AM EST BASIC METABOLIC PANEL Routine 11/10/2024 10:17 AM EST XR KNEE 1 OR 2 VW LEFT Routine 11/09/2024 1:17 PM EST TISSUE EXAM Routine 11/09/2024 10:55 AM EST Primary osteoarthritis of left knee IN TOTAL KNEE ARTHROPLASTY 11/09/2024 9:44 AM EST Primary osteoarthritis of left knee Special Needs OSTEONICS/CHRISTIE IN AN PAIN BLOCK AT SURGEON REQUEST Routine 11/09/2024 9:40 AM EST IN AN PERIPHERAL BLOCK POST-OP PAIN Routine 11/09/2024 [...] Last 3 Months Results * Due to [place] state law, this organization might not be sharing negative HIV tests. * (ABNORMAL) CBC Auto Differential (11/10/2024 10:17 AM EST) WBC 10.2 3.8 - 10.8 10*3/uL 11/10/2024 11:23 AM EST [facility] RBC 3.78(L) 3.80 - 5.10 10*6/uL 11/10/2024 11:23 AM EST [facility] Hemoglobin 11.1(L) 11.7 - 15.5 g/dL 11/10/2024 11:23 AM EST [facility] Hematocrit 34.6(L) 35.0 - 45.0 % 11/10/2024 11:23 AM EST [facility] MCV 91.5 80.0 - 100.0 fL 11/10/2024 11:23 AM EST [facility] MCH 29.4 27.0 - 33.0 pg 11/10/2024 11:23 AM [facility] MCHC 32.1 32.0 - 36.0 g/dL 11/10/2024 11:23 AM [facility] RDW 14.0 11.0 - 15.0 % 11/10/2024 11:23 AM [facility] Platelets 183 140 - 400 10*3/uL 11/10/2024 11:23 AM [facility] MPV 9.6 7.5 - 12.5 fL 11/10/2024 11:23 AM [facility] Neutrophil % 87.7 % 11/10/2024 11:23 AM [facility] Immature Grans % 0.4 0.0 - 0.9 % 11/10/2024 11:23 AM [facility] Lymphocyte % 5.6 % 11/10/2024 11:23 AM [facility] Monocyte % 6.2 % 11/10/2024 11:23 AM [facility] Eosinophil % 0.0 % 11/10/2024 11:23 AM [facility] Basophil % 0.1 % 11/10/2024 11:23 AM [facility] Neutrophil # 8.90(H) 1.50 - 7.80 10*3/uL 11/10/2024 11:23 AM [facility] Immature Grans # 0.04(H) <=0.03 10*3/uL 11/10/2024 11:23 AM [facility] Lymphocyte # 0.60(L) 0.85 - 3.90 10*3/uL 11/10/2024 11:23 AM [facility] Monocyte # 0.60 0.20 - 0.95 10*3/uL 11/10/2024 11:23 AM EST [facility] Eosinophil # <0.03 0.02 - 0.50 10*3/uL 11/10/2024 11:23 AM EST [facility] Basophil # <0.03 0.00 - 0.20 10*3/uL 11/10/2024 11:23 AM EST [facility] nRBC % 0.0 /100 WBCs 11/10/2024 11:23 AM EST [facility] nRBC # <0.01 <0.01 10*3/uL 11/10/2024 11:23 AM EST [facility] Blood Structure of peripheral vein / Unknown Venipuncture / Unknown 11/10/2024 10:17 AM EST 11/10/2024 10:32 AM EST us Saqib Santos MD LAB BLOOD ORDERABLES Final R esult [facility] [address] [place] [address], * (ABNORMAL) Basic Metabolic Panel (11/10/2024 10:17 AM EST) Only the most recent of2 resultswithin the time period is included. NA 135 135 - 145 mmol/L 11/10/2024 11:10 AM EST [facility] K 4.7 3.5 - 5.3 mmol/L 11/10/2024 11:10 AM EST [facility] Cl 100 98 - 107 mmol/L 11/10/2024 11:10 AM EST [facility] CO2 25 22 - 32 mmol/L 11/10/2024 11:10 AM EST [facility] BUN 17 7 - 23 mg/dL 11/10/2024 11:10 AM EST [facility] Creatinine 1.13 0.50 - 1.20 mg/dL 11/10/2024 11:10 AM EST [facility] Glucose 256(H) 65 - 99 mg/dL 11/10/2024 11:10 AM EST [facility] Calcium 8.7 8.6 - 10.5 mg/dL 11/10/2024 11:10 AM EST [facility] Anion Gap 10 5 - 15 11/10/2024 11:10 AM EST [facility] eGFR 50(L) >=60 mL/min/1. 73m2 11/10/2024 11:10 AM EST [facility] Comment:The estimated glomer ular filtration [...] MD LAB BLOOD ORDERABLES Final R esult [facility] [address] [place] [address], * X-Ray Knee Left 1 or 2 [...] obtain the completed interpretation. ? Workstation ID: [id number] Narrative 11/09/2024 2:58 PM EST COMPARISON: ??06/04/2024. ?? FINDINGS AND Resulting Agency Comment [id number] Procedure Note Marlena Lakhani MD - 11/09/2024 [...] possible to obtain thecompleted interpretation. Workstation ID: [id number] Saqib Santos MD IMG XR PROCEDURES Final Resu lt * Tissue Exam (11/09/2024 10:55 AM EST) Final Diagnosis Bone and Tissue, Left Knee: - Osteoarthritis with osteophyte formation and bony eburnation. [facility] 11/16/2024 12:54 PM EDT [facility] at 1254 EDT Clinical History Pre-op diagnosis: Primary osteoarthritis of left knee [M17.12] [facility] 11/16/2024 12:54 PM EDT [facility] Gross Description 1. [...] osteophyte formation. The margins are flat. A ict sales representative section is submitted in cassette 1A after fixation and decalcification. [employer] [facility] 11/16/2024 12:54 PM EDT [facility] Gross Description User Grossing complete by Patel Sutherland on 11/09/2024 3:23 PM [employer] [facility] 11/16/2024 12:54 PM EDT [facility] Embedded Images [facility] 11/16/2024 12:54 PM EDT [facility] Resulting Agency Case was signed out at [facility], Department of Pathology, [employer] 3 CLIA [id number] [facility] MANUAL 11/16/2024 12:54 PM EDT [facility] Report Header Surgical Pathology Report ? Case: [id number] ? Authorizing Provider: ??Saqib Santos MD ? Collected: ? 11/09/2024 1055 ? Ordering Location: ? [facility]- ?Received: ?11/09/2024 1308 ? [facility] Day ? Surgery ? Pathologist: ? Campos Saini MD ? Specimen: ?Knee, Left, LEFT KNEE BONE AND TISSUE ? 11/16/2024 12:54 PM EDT [facility] Bone Structure of left knee region / Unknown 11/09/2024 10:55 AM EST 11/09/2024 1:08 PM EST Comment:Pre-op diagnosis: Primary osteoarthritis of left knee [M17.12] us Saqib Santos MD LAB PATHOLOGY/CYTOLOGY ORDER DAREN Final Result [employer] [facility] [address] [place] [address], * IN AN PERIPHERAL BLOCK POST-OP PAIN, IN AN PAIN BLOCK AT SURGEON REQUEST (11/09/2024 [...] performed Peripheral Block Ultrasound #1 Probe: Linear [id number] Patient position: supine Prep: ChloraPrep Patient monitoring: [...] aureus (MRSA) isolated. 10/31/2024 5:56 AM EST [facility] Swab Nasal structure / Unknown Non-Blood Collection / Unknown 10/29/2024 2:13 PM EST 10/29/2024 2:13 PM EST Narrative [facility] - 10/31/2024 5:56 AM EST [facility] Received Date: MICRO NUMBER: [id number] SPECIMEN QUALITY: Adequate SOURCE: SWAB NOSE STATUS: FINAL Saqib Santos MD LAB MICROBIOLOGY - GENERAL O RDERABLES Final Result [facility] [address], [place] [address], [place] [phone] [employer] [address], [place] [address], [place] [phone] * CBC (10/29/2024 2:04 PM EST) [facility] WBC 5.1 3.8 - 10.8 10*3/uL 10/29/2024 2:25 PM EST [facility] RBC 4.30 3.80 - 5.10 10*6/uL 10/29/2024 2:25 PM EST [facility] Hemoglobin 12.9 11.7 - 15.5 g/dL 10/29/2024 2:25 PM EST [facility] Hematocrit 40.0 35.0 - 45.0 % 10/29/2024 2:25 PM EST [facility] MCV 93.0 80.0 - 100.0 fL 10/29/2024 2:25 PM EST [facility] MCH 30.0 27.0 - 33.0 pg 10/29/2024 2:25 PM EST [facility] MCHC 32.3 32.0 - 36.0 g/dL 10/29/2024 2:25 PM EST [facility] RDW 13.9 11.0 - 15.0 % 10/29/2024 2:25 PM EST [facility] Platelets 277 140 - 400 10*3/uL 10/29/2024 2:25 PM EST [facility] MPV 9.2 7.5 - 12.5 fL 10/29/2024 2:25 PM EST [facility] Blood Structure of peripheral vein / Unknown Venipuncture / Unknown 10/29/2024 2:04 PM EST 10/29/2024 2:04 PM EST Ashok Potter MD LAB BLOOD ORDERABLES Final Res ult Performing Organization Address [facility] Co de Phone Number [facility] [address] [place] [address], * Type and screen (10/29/2024 2:04 PM [...] Edited Result - Final Performing Organization Address [facility] de Phone Number [facility] [address] [place] [address], [place] [phone] * X-Ray Knee Right 4+ Views (10/21/2024 11:30 AM EST) Anatomical Region Laterality Modality Lower Extremities, Knee Right Computed Radiography Saqib Santos MD IMG XR PROCEDURES Final Resu lt from Last 3 Months Insurance MEDICARE MEDICARE Advance Directives Documents on File Type Date Recorded Patient Employee Communications Intern Expl anation Health Care Proxy 07/02/2024 1:[facility] * Full Code (Latest Code Status on File) Date Activated Date Inactivated Comments 11/09/2024 12:05 PM 11/12/2024 6:25 PM * Full Code Date Activated Date Inactivated Comments 07/20/2024 12:55 PM 07/22/2024 3:45 PM Care Teams Sulfonation Equipment Operator Relationship Specialty Start Date End Date Chen Pop [address] [place] [address] PCP - General Internal Medicine 05/01/24
--- OUTSIDE RECORDS SUMMARY | 2025-01-11 14:01 | XMS_ITS | Encounter Summary ---
Author Organization [facility] Address [address] [place] [address] Care Team Providers Care Packager Name Role Phone CarolinajoseriazChen Primary Care Provider [phone] Encounter Details Date Type Department Care Team (Late st Contact Info) Description 10/27/2024 [employer] Message Intial Department [address] [place] [address] Mychart, Generic Provider [facility] [place] [address] Questionnaire Submission Social History [...] PM EDT Follow-Up CC [facility] AT [address] [facility] [address] [place] [address] Saqib Santos J.P., MD [address] [place] [address] documented as of this encounter Visit Diagnoses Not on filedocumented in this encounter Care Teams Packager Relationship Specialty Start Date End Date Chen Pop [facility] [place] [address] PCP - General Internal Medicine 05/01/24 documented as of this encounter
--- OUTSIDE RECORDS SUMMARY | 2025-01-11 14:01 | XMS_ITS | Encounter Summary ---
Author Organization [facility] Address [address] [place] [address] Care Team Providers Care Quality Assurance Tech Name Role Phone CarolinajoseriazChen Primary Care Provider [phone] Encounter Details Date Type Department Care Team (Late st Contact Info) Description 10/27/2024 [employer] Message Intial Department [address] [place] [address] Mychart, Generic [place] [address] Questionnaire Submission Social History Tobacco [...] PM EDT Follow-Up CC [facility] AT [address] [facility] [address] [place] [address] Saqib Santos J.P., MD [address] [place] [address] documented as of this encounter Visit Diagnoses Not on filedocumented in this encounter Care Teams Quality Assurance Tech Relationship Specialty Start Date End Date Chen Pop [place] [address] PCP - General Internal Medicine 05/01/24 documented as of this encounter
== END 2025-01-11 13:42 | disposition home or self-care (01) ==
LOC: HO.HMCC 12:29
PROVIDERS: PCP Internal Medicine; Visit Provider Internal Medicine
DX: Z00.00 Encounter for general adult medical examination without abnormal findings (principal); C90.00 Multiple myeloma not having achieved remission; N18.30 Chronic kidney disease, stage 3 unspecified; R63.4 Abnormal weight loss; G62.9 Polyneuropathy, unspecified

== ENCOUNTER 2025-01-15 13:00 | Outpatient (RCR) | payer MEDICARE, OTHER, SELFPAY | END 2025-02-15 08:43 | disposition home or self-care (01) | LOC: HO.PTCHIC 13:00 | PROVIDERS: PCP Internal Medicine; Visit Provider Specialist | DX: M17.12 Unilateral primary osteoarthritis, left knee (principal); M24.661 Ankylosis, right knee | CPT/HCPCS: 97110; 97162 ==

== ENCOUNTER 2025-02-04 09:47 | Outpatient (REF) | payer MEDICARE, OTHER, SELFPAY ==
[2025-02-04 13:52] LABS: Appearance Urine Clear; Color Urine Yellow; Glucose Urine UA Negative (Negative); Leukocyte Esterase Urine Negative (Negative); Nitrite Urine Negative (Negative); PH 5.5 (5.0-9.0); Urine Blood Negative (Negative); Urine Ketones Negative (Negative); Urine Protein Negative (Neg-Trace)
[2025-02-04 14:07] LABS: Bacteria Urine None Seen (None Seen); Hyaline Casts Urine 0-2 /LPF (0-2); RBC Urine 0-2 /HPF (0-2); Squamous Epithelial Cell Urine 0-2 /HPF (0-2); WBC Urine 0-5 /HPF (0-5)
== END 2025-02-04 09:48 | disposition home or self-care (01) ==
LOC: HO.HMGCLDS 09:47
PROVIDERS: PCP Internal Medicine; Referring Provider Internal Medicine; Visit Provider Internal Medicine
DX: T14.8XXA Other injury of unspecified body region, initial encounter (principal); W57.XXXA Bitten or stung by nonvenomous insect and other nonvenomous arthropods, initial encounter; R30.0 Dysuria
CPT/HCPCS: 81001; 87086; 99212

== ENCOUNTER 2025-02-04 09:47 | Outpatient (AMB) | payer MEDICARE, OTHER, SELFPAY ==
[2025-02-04 09:49] VITALS: BP 112/70; PULSE 66; TEMP 36.9; O2SAT 97; BMI 23.3
--- NOTE | 2025-02-04 09:49 | MHC.OFFWIV ---
Intake Vital Signs 02/04/25 09:49 Height 5 ft 5 in Weight 140 lb BMI 23.3 BP 112/70 Blood Pressure Location Lt brachial Position Sitting Pulse 66 Pulse Source Pulse Oximeter Temp 98.5 F Temp Source Oral Pulse Oximetry (%) 97 Oxygen Delivery Method Room Air Intake Visit Reasons: EP tick bite on butt area Patient Tobacco Use Status: Former Tobacco user Allergies No Known Allergies Allergy (Verified 02/04/25 09:49) Do you need a note to return to daycare/school/sports/work: No HPI HPI Comments History of Present Illness Details History of Present Illness - The patient is a 79-year-old female presenting with skin lumps/bites. - The lumps were noticed after a day of outdoor work yesterday. - The patient described the lumps as small, with one red and the other just a lump, with no itching or pain - The patient did not report any prior similar occurrences or notable insect exposure. Physical Exam General: Cooperative, healthy appearing, comfortable, no acute distress and well developed Orientation: Patient oriented x3 Limitations: No limitations Head: Normal to inspection Ears: Hearing grossly normal bilaterally Nose: Normal External nose present Face and sinus: Normal facial exam Eyes: Appearance normal, both eyes and all related structures Neck: Normal visual inspection and Yes full ROM Respiratory: Normal respiratory effort and able to speak in complete sentences. 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 Osteoarthritis of right hip Personal history of COVID-19 Pain Slow to wake up after anesthesia Achalasia of esophagus Otitis media of right ear Cataract RLS (restless legs syndrome) Insomnia Hx of breast cancer Post-nasal drip Multiple myeloma Ankle fracture, left GERD (gastroesophageal reflux disease) Surgical History History of esophagogastroduodenoscopy (EGD) History of right hip replacement (09/11/23) Hx of bilateral cataract extraction History of lumpectomy of right breast History of History of surgery on left wrist History of colonoscopy H/O left knee surgery Status post ORIF of fracture of ankle (~2021) Family History Father Lung cancer Mother Diabetes Hypertension Heart attack Other Mental health disorder Social History Household Members: None Household Members Other:: , 2 sons, Housing: House Are you a primary care program resident to a significant other at home: No Do you presently have visiting nurse or other home services: No Comment: pressure Patient Tobacco Use Status: Former Tobacco user Tobacco use type: Cigarette Years Smoked: 2 e-Cigarette/Vaping Use: Never Used Second Hand Smoke Exposure: No service: No Current occupational status: retired Cognitive needs: No Hearing needs: No Vision needs: Yes Review of Systems Const All systems reviewed & are unremarkable except as noted in HPI and below Physical Exam Vital Signs: Last Vital Signs Temp 98.5 F 02/04/25 09:49 Pulse 66 02/04/25 09:49 BP 112/70 02/04/25 09:49 Pulse Ox 97 02/04/25 09:49 Oxygen Delivery Method Room Air 02/04/25 09:49 BMI result Body Mass Index 23.3 Assessment & Plan Assessment & Plan (1) Insect bites: Code(s): W57.XXXA - Bitten or stung by nonvenomous insect and other nonvenomous arthropods, initial encounter Qualifiers: Encounter type: initial encounter Laterality: left Plan: Plan The lumps on the patient's left buttocks were evaluated and determined not to be indicative of ticks, most likely insect bites. Topical application of Bacitracin or Neosporin was advised to prevent potential infection. No additional intervention was necessary as the lumps were small and non-infectious. Monitoring for changes or symptom progression was suggested, with instructions to seek further evaluation if needed. The treatment plan focused on the benign nature of the lumps and aimed to ensure no secondary infection arose from them. Patient was informed and verbally consented to the use of an ambient scribe for clinic note documentation during this visit. Coding Level of Care Code Est Pt Level 3 (05337) Diagnoses Insect bites W57.XXXA Encounter type: initial encounter Laterality: left
--- OUTSIDE RECORDS SUMMARY | 2025-02-04 10:06 | XMS_ITS | Encounter Summary ---
Author Organization [facility] Address [address] [place] [address] Care Team Providers Care Gold Leaf Printer Name Role Phone CarolinajoseriazChen Primary Care Provider [phone] Encounter Details Date Type Department Care Team (Late st Contact Info) Description 07/06/2024 [facility] Message [facility] [address] [place] [address] Mychart, Generic Provider [address] [place] [address] Questionnaire Submission Social History Tobacco Use [...] Upcoming Encounters Date Type Department Care Team (Latest Contact Info) Description 02/08/2025 10:39 AM EDT Hospital Encounter [facility] [address] [place] [address] Saqib Santos J.P., MD [address] [place] [address] 02/08/2025 10:39 AM EDT Anesthesia Event [facility] [address] [place] [address] Hanny Cai RN 02/08/2025 10:39 AM EDT - 02/08/2025 11:19 AM EDT Surgery [facility] [address] [place] [address] Saqib Santos J.P., MD [address] [place] [address] MANIPULATION, KNEE, WITH ANESTHESIA [[id number] (CPT??)] 02/23/2025 11:30 AM EDT Follow-Up [facility] [address] [place] [address] Saqib Santos J.P., MD [address] [place] [address] Scheduled Procedures Name Priority Associated Diagnoses Date/Ti me MANIPULATION, KNEE, WITH ANESTHESIA Arthrofibrosis of knee joint, left 02/08/2025 10:39 AM EDT documented as of this encounter Visit Diagnoses Not on filedocumented in this encounter Care Teams Gold Leaf Printer Relationship Specialty Start Date End Date Chen Pop [address] [place] [address] PCP - General Internal Medicine 05/01/24 documented as of this encounter
== END 2025-02-04 10:47 | disposition home or self-care (01) ==
PROVIDERS: PCP Internal Medicine; Visit Provider Physician Assistant
DX: T63.481A Toxic effect of venom of other arthropod, accidental (unintentional), initial encounter (principal)

== ENCOUNTER 2025-03-03 10:46 | Outpatient (AMB) | payer MEDICARE, OTHER, SELFPAY ==
--- NOTE | 2025-03-03 10:49 | A.OFFPC_ITS ---
Vital Signs 03/03/25 10:50 Height 5 ft 5 in Weight 141 lb BMI 23.5 BP 112/76 Blood Pressure Location Lt brachial Position Sitting Respiration 18 Pulse 76 Pulse Source Pulse Oximeter Temp 98.4 F Temp Source Oral Pulse Oximetry (%) 96 Oxygen Delivery Method Room Air Intake Visit Reasons: Pain in the middle of the back Intake Note: Pt is here today for a sick visit. Pt c/o middle back pain. Allergies No Known Allergies Allergy (Verified 03/03/25 10:50) Medication List - Last Reconciled 03/03/25 by Chen Pop MD acetaminophen 650 mg (2 x 325 mg) PO Q6H PRN 30 days acyclovir 400 mg PO BID bisacodyl (Dulcolax (bisacodyl)) 10 mg (2 x 5 mg) PO BEDTIME calcium acetate calcium 1200 mg vitamin d3 1000 units cane As directed celecoxib (Celebrex) 200 mg PO DAILY cyclobenzaprine 10 mg PO TID PRN docusate sodium 100 mg PO BID dorzolamide-timolol 22.3-6.8 mg/mL ophthalmic (eye) duloxetine 60 mg PO DAILY fluticasone propionate 50 mcg/actuation 1 spray intranasal DAILY gabapentin 600 mg PO BID ixazomib (Ninlaro) mg PO lisinopril 2.5 mg PO DAILY mirtazapine 7.5 mg PO BEDTIME montelukast (Singulair) 10 mg PO BEDTIME pantoprazole 40 mg PO DAILY [Powerlift reclinder slim width and depth ] [probiotics 100mg orally; ] prochlorperazine maleate 10 mg PO DAILY PRN [Raised toilet seat duration: lifetime] ropinirole 6 mg (3 x 2 mg) PO BEDTIME sennosides (senna) 17.2 mg PO BID [SHOWER CHAIR As directed] trazodone 1-2 tabl orally bedtime; walker Folding Front wheeled walker Tobacco use date assessed: 03/03/25 Fall risk assessment: No Falls in past year Last assessed Fall Risk: 03/03/25 Dental Screening Dental Screen Date: 01/11/25 HPI Pain in the middle of the back HPI Details Patient presents complaining of lower thoracic upper lumbar region back pain for 1 week worse when walking or change in body position. She denies pain radiating to lower extremities, weakness or numbness in extremities change in bladder or bowel function or any injury. Patient recently had a negative PET scan for multiple myeloma surveillance. 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 Osteoarthritis of right hip Personal history of COVID-19 Pain Slow to wake up after anesthesia Achalasia of esophagus Otitis media of right ear Cataract RLS (restless legs syndrome) Insomnia Hx of breast cancer Post-nasal drip Multiple myeloma Ankle fracture, left GERD (gastroesophageal reflux disease) Surgical History History of esophagogastroduodenoscopy (EGD) History of right hip replacement (09/11/23) Hx of bilateral cataract extraction History of lumpectomy of right breast History of History of surgery on left wrist History of colonoscopy H/O left knee surgery Status post ORIF of fracture of ankle (~2020) Family History Father Lung cancer Mother Diabetes Hypertension Heart attack Other Mental health disorder Social History Household Members: None Household Members Other:: , 2 sons, Housing: House Are you a primary occasional caregiver to a significant other at home: No Do you presently have visiting nurse or other home services: No Comment: pressure Patient Tobacco Use Status: Former Tobacco user Tobacco use type: Cigarette Years Smoked: 2 e-Cigarette/Vaping Use: Never Used Second Hand Smoke Exposure: No service: No Current occupational status: retired Cognitive needs: No Hearing needs: No Vision needs: Yes Questionnaire Thrive Questionnaire Date Thrive assessed: 11/23/24 I am a: Patient What is your living situation today?: I have a steady place to live Within the past 12 months, did the food you bought not last and you didn't have the money to get more?: Often true Within the past 12 months, did you worry whether your food would run out before you got money to buy more?: Often true Do you have trouble paying for medicines?: No Do you have trouble getting transportation to medical appointments?: No Do you have trouble paying your heating and electricity bill?: No Do you have trouble taking care of your child, family member or friend?: No Do you have trouble with day-to-day activities such as bathing, preparing meals, shopping, managing finances, etc.?: Yes Are you currently unemployed and looking for a job?: No Are you interested in more education?: No Please select the resources that you would like help with: None Currently or been in a relationship where the following occur: No concerns reported THRIVE Score: 2 ROCK-7 AMB Questionnaire ROCK-7 Date ROCK - 7 assessed: 03/03/25 Feeling nervous, anxious, or on edge: 0 = Not at all Not being able to stop or control worryin = Not at all Worrying too much about different things: 0 = Not at all Trouble relaxin = Not at all Being so restless that it is hard to sit still: 0 = Not at all Becoming easily annoyed or irritable: 0 = Not at all Feeling afraid as if something awful might happen: 0 = Not at all Total ROCK-7 score (0-4 normal; 5-9 mild; 10-14 moderate; 15-21 severe): 0 Source: Developed by Drs. Talha Steve, Halina Pena, Levar Earl and colleagues, with an educational ramón from [employer]. ROCK-7 Assessment Billing ROCK-7 Assessment Tool: ROCK-7 Assessment 49439 Review of Systems Const All systems reviewed & are unremarkable except as noted in HPI and below ENT Reports no additional complaints Card Reports no additional complaints Resp Reports no additional complaints GI Reports no additional complaints Reports no additional complaints Neuro Reports no additional complaints Physical exam (Primary Care) Vital Signs: Last Vital Signs Temp 98.4 F 03/03/25 10:50 Pulse 76 03/03/25 10:50 Resp 18 03/03/25 10:50 BP 112/76 03/03/25 10:50 Pulse Ox 96 03/03/25 10:50 Oxygen Delivery Method Room Air 03/03/25 10:50 BMI result Body Mass Index 23.5 Tobacco/Smoking Status: Tobacco use Status Tobacco use date assessed 03/03/25 03/03/25 10:51 Patient Tobacco Use Status Former Tobacco user 03/03/25 10:51 Tobacco use type Cigarette 03/03/25 10:51 e-Cigarette/Vaping Use Never Used 03/03/25 10:51 Thrive Assessment: Date of Thrive Assessment Date Thrive assessed 11/23/24 03/03/25 10:51 Currently or been in a relationship where the following occur: No concerns reported Const General: no acute distress HENMT Head: Yes normal to inspection Eyes General: appearance normal, both eyes and all related structures Resp Effort & Inspection: normal respiratory effort Auscultation: clear to auscultation bilaterally Cardio Rhythm: regular rhythm Heart sounds: S1 normal heart sound present and S2 normal heart sound present GI Inspection: Yes normal to inspection Palpation (GI): Soft to palpation Back/Spine/Pelvis Other: Lower thoracic and upper lumbar region spinal paraspinal tenderness, straight leg rising 90 degrees bilaterally motor strength 5/5 bilaterally Coding Level of Care Code Est Pt Level 4 (12872) Diagnoses Mid back pain M54.9 Multiple myeloma C90.00 Neuropathy G62.9 Additional Codes ROCK-7 Assessment Billing - ROCK-7 Assessment Tool: ROCK-7 Assessment 20094 ([id number]) Assessment & Plan Assessment & Plan (1) Mid back pain: Code(s): M54.9 - Dorsalgia, unspecified Category: Medical Plan: Follow-up thoracic and upper lumbar back pain obtain x-rays to rule out compression fracture. Try Celebrex for 10 days and if the pain persists patient will be referred to physical therapy (2) Multiple myeloma: Comment: [facility]ematology, dxd 2020, in remission 01/28 on Ninlaro and Prolia q 3 months Code(s): C90.00 - Multiple myeloma not having achieved remission Category: Medical Plan: Follow-up with Hematology (3) Neuropathy: Comment: LLE after surgery for venous insufficiency on duloxetine and gabapentin Code(s): G62.9 - Polyneuropathy, unspecified Category: Medical Plan: Continue duloxetine and gabapentin Orders: Orders XR thoracic spine 2V Today M54.9 - Dorsalgia, unspecified XR lumbar spine 2-3V Today M54.9 - Dorsalgia, unspecified Medications: New celecoxib (Celebrex) 200 mg PO DAILY 10 caps 0RF Discontinued aspirin Discontinued Reason: Doctor's Order 81 mg PO DAILY 90 tabs 3RF
[2025-03-03 10:50] VITALS: BP 112/76; PULSE 76; RESP 18; TEMP 36.9; O2SAT 96; BMI 23.5
--- OUTSIDE RECORDS SUMMARY | 2025-03-03 12:45 | XMS_ITS | Encounter Summary ---
Author Organization [facility] Address [address] [place] [address] Care Team Providers Care Photolith Operator Name Role Phone Chen Pop Primary Care Provider [phone] Encounter Details Date Type Department Care Team (Late st Contact Info) Description 02/01/2025 [employer] Message [facility] Surgery [address] [place] [address] [email or web address], [facility] Provider [address] [place] [address] Questionnaire due soon Social History Tobacco [...] on file documented as of this encounter Visit Diagnoses Not on filedocumented in this encounter Care Teams Photolith Operator Relationship Specialty Start Date End Date Chen Pop [address] [place] [address] PCP - General Internal Medicine 05/01/24 documented as of this encounter
== END 2025-03-03 11:20 | disposition home or self-care (01) ==
LOC: HO.HMCC 10:47
PROVIDERS: PCP Internal Medicine; Visit Provider Internal Medicine
DX: M54.9 Dorsalgia, unspecified (principal); C90.00 Multiple myeloma not having achieved remission; G62.9 Polyneuropathy, unspecified

== ENCOUNTER 2025-03-03 10:46 | Outpatient (REF) | payer MEDICARE, OTHER, SELFPAY ==
--- NOTE | ~2025-03-03 | XR_ITS ---
EXAMINATION: XR LUMBOSACRAL SPINE CLINICAL INFORMATION: M54.9 - Dorsalgia, unspecified COMPARISON: None available. TECHNIQUE: Three views of the lumbosacral spine. FINDINGS: There is a minimal levoconvex scoliosis. There is a normal lordosis. No subluxations. There is osteopenia. Kyphoplasty cement present in T12, T11, L4, and the left sacral wing. Associated mild compression deformities. There is a mild superior endplate compression of L3, likely chronic given appearance. No additional compression deformities or evidence of acute fracture. No suspicious bone lesions. Normal facet alignment. Degenerative facet changes L4-S1. Mild to moderate diffuse disc degeneration. Mild vascular calcifications in the soft tissues. XR/XR lumbar spine 2-3V IMPRESSION: 1. Osteopenia. No acute bony abnormalities of the lumbar spine. 2. Kyphoplasty cement present in T11, T12, L4, and the left sacral wing. 3. Minimal superior endplate compression deformity of L3, likely chronic. Electronically signed by: Yovanny Espinosa MD 03/03/2025 02:26 PM EDT
--- NOTE | ~2025-03-03 | XR_ITS ---
EXAMINATION: XR THORACIC SPINE CLINICAL INFORMATION: M54.9 - Dorsalgia, unspecified COMPARISON: None available. TECHNIQUE: 2 views of the thoracic spine were obtained. FINDINGS: There is kyphoplasty cement seen in T11 and T12. Associated chronic wedge compression deformities. There is a very mild right convex thoracic scoliosis. There is a normal kyphosis. No additional compression deformities, acute fracture, or suspicious bone lesion. There is normal alignment. There is moderate diffuse degenerative disc change. Facets are normally aligned with degenerative facet changes. The imaged paravertebral soft tissues, lungs, and mediastinal contours are grossly normal. Aortic mural calcifications. XR/XR thoracic spine 2V IMPRESSION: 1. Chronic compression deformities with kyphoplasty cement in T11 and T12. 2. No acute bony abnormality or additional compression deformity of the thoracic spine. 3. Mild scoliosis and moderate degenerative spondylosis. Electronically signed by: Yovanny Espinosa MD 03/03/2025 02:22 PM EDT
== END 2025-03-03 10:47 | disposition home or self-care (01) ==
LOC: HO.HMGCX 10:46
PROVIDERS: PCP Internal Medicine; Visit Provider Internal Medicine
DX: M54.9 Dorsalgia, unspecified (principal); G62.9 Polyneuropathy, unspecified; C90.00 Multiple myeloma not having achieved remission
CPT/HCPCS: 72070; 72100; 96127; 99212

== ENCOUNTER → 2025-03-03 12:56 | Outpatient (BNV) | payer MEDICARE, OTHER, SELFPAY | PROVIDERS: PCP Internal Medicine; Visit Provider Radiology Diagnostic Radiology | DX: M51.360 Other intervertebral disc degeneration, lumbar region with discogenic back pain only (principal); M47.895 Other spondylosis, thoracolumbar region | CPT/HCPCS: 72070; 72100 ==

== ENCOUNTER 2025-03-19 13:00 | Outpatient (RCR) | payer MEDICARE, OTHER, SELFPAY | END 2025-03-19 13:49 | disposition home or self-care (01) | LOC: HO.PTCHIC 13:00 | PROVIDERS: PCP Internal Medicine; Visit Provider Specialist | DX: M24.662 Ankylosis, left knee (principal); M24.661 Ankylosis, right knee | CPT/HCPCS: 97110; 97162; 97530 ==

== ENCOUNTER 2025-03-24 09:28 | Day surgery (SDC) | payer MEDICARE, OTHER, SELFPAY ==
--- OUTSIDE RECORDS SUMMARY | 2025-03-17 14:39 | XMS_ITS | Patient Health Record ---
Author Organization [facility] Address [address] [place] [address] Care Team Providers Care Processing Talc And Borate Supervisor Name Role Phone Brady SHARP, Judy Primary Care Provider Unav ailable KnappTalha Unavailable [phone] Reason For Referral No Information Medications Medication SIG (Take, Route, Frequency, Duration) Notes Start Date End Date Status Evista Active Vagifem Active Pantoprazole Sodium 40 MG 1 tablet Orall y Twice a day 30 minutes AC for 90 day(s) 03/04/2012 Active Propranolol HCl Acti ve Protonix Active Problems Problem Type SNOMED Code ICD Code Onset Dates Problem Status W/U Status Risk Notes Problem Achalasia (finding) (65304700) 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 Problem Reflux esophagitis (062330003) Reflux esophagitis (530.11) Active confirmed Problem Esophageal reflux (938401942) Esophageal reflux (530.81) Active confirmed Problem Alberto's esophagus (303301371) 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 Problem Constipation (79918308) Unspecified constipation (564.00) Active confirmed Problem Screening for malignant neoplasm of colon (304984315) Special screening for malignant neoplasms, colon (V76.51) Active confirmed Plan Of Treatment Future Test Test Name Order Date UPPER GI ENDOSCOPY 06/15/2011 COLONOSCOPY 06/15/2011 Insurance Providers Payer Name Payer Address Payer Phone Subscriber Number Group Number Insured Name Patient Relationship to Insured Coverage Start Date Coverage End Date MEDICARE OF [facility] [id number] [place] [address] [id number] MELIDA LAZCANO Self - patient is the [facility] [address] [facility] [place] [address] [id number] MELIDA LAZCANO Self - patient is the insured Medical (General) History Medical History History ICD Code Achalsia GERD with Alberto's esophagus and esopha gitis meningioma Denies MS,DM,CVA,Lung disease,renal dise ase migraines Surgical History Surgery Date(Month/Year) meningioma removed in May [address] Andre at [facility]. Heller myotomy 09/1999 Varicose veins
--- OUTSIDE RECORDS SUMMARY | 2025-03-17 14:39 | XMS_ITS | Clinical Summary ---
Author Organization [address] Address [address] [place] [address] Phone Care Team Providers Care Mercerizing Range Feeder Name Role Phone Judy Mack MD Primary [...] of Health Screening 08/11/2022 Influenza Vaccine (#1) 2025 , 08/09/2022, 07/04/2022, Additional history exists Hypertension/CHF/CAD [...] mmol/L LAB CHEMISTRY METHOD 07/31/2024 8:55 AM [facility] Potassium 4.4 3.5 - 5.5 mmol/L LAB CHEMISTRY METHOD 07/31/2024 8:55 AM [facility] Chloride 107 96 - 110 mmol/L LAB CHEMISTRY METHOD 07/31/2024 8:55 AM [facility] CO2 30 21 - 32 mmol/L LAB CHEMISTRY METHOD 07/31/2024 8:55 AM [facility] Anion Gap 4 3 - 11 LAB CHEMISTRY METHOD 07/31/2024 8:55 AM [facility] Glucose 82 70 - 100 mg/dL LAB CHEMISTRY METHOD 07/31/2024 8:[address] [facility] BUN 20 5 - 25 mg/dL LAB CHEMISTRY METHOD 07/31/2024 8:55 AM [facility] Creatinine 0.92 0.50 - 1.10 mg/dL LAB CHEMISTRY METHOD 07/31/2024 8:55 AM [facility] eGFR 64 >=60 mL/min/1. 73m2 LAB CHEMISTRY METHOD 07/31/2024 8:55 AM [facility] Comment:Calculation based on the Chronic Kidney Disease Epidemiology Collaboration (CKD-EPI) equation refit without adjustment for race. BUN/Creatinine Ratio 21.7 LAB CHEMISTRY METHOD 07/31/2024 8:55 AM [facility] Calcium 8.4(L) 8.5 - 10.5 mg/dL LAB CHEMISTRY METHOD 07/31/2024 8:55 AM [facility] Blood Venous blood specimen / Unknown Venipuncture / Unknown 07/31/2024 4:39 AM EST 07/31/2024 7:14 AM EST us Brian Avalos MD LAB BLOOD ORDERABLES Final Res ult [facility] [address] [place] [address], from Last 3 Months or Most Recently Relevant to Health Maintenance Care Teams Mercerizing Range Feeder Relationship Specialty Start Date End Date Judy Mack MD [address] [place] [address] PCP - General Internal Medicine 06/25/17
--- OUTSIDE RECORDS SUMMARY | 2025-03-17 14:39 | XMS_ITS | Encounter Summary ---
Author Organization [facility] Address [address] [place] [address] Care Team Providers Care Clay Machine Operator Name Role Phone Chen Pop Primary Care Provider [phone] Encounter Details Date Type Department Care Team (Late st Contact Info) Description 02/01/2025 [employer] Message [facility] Surgery [address] [place] [address] [employer], [facility] Provider [address] [place] [address] Questionnaire due soon Social History Tobacco [...] on filedocumented in this encounter Care Teams Clay Machine Operator Relationship Specialty Start Date End Date Chen Pop [address] [place] [address] PCP - General Internal Medicine 05/01/24 documented as of this encounter
--- OUTSIDE RECORDS SUMMARY | 2025-03-17 14:39 | XMS_ITS | Data Portability ---
Author Organization [facility] [address] Address [address] [place] [address] Care Team Providers Care Cook Fast Food Name Role Phone KIEL JACKSON Primary Care Provider [phone] DOMINIC WINN Auto Heater Mechanic Unavailable Assessment No assessment recorded. Plan of Treatment Reminders Order Date Submit Date Provider Last Modified By Organization Details Last Modified Time Details Appointments None recorded. Lab None recorded. Referral None recorded. Procedures None recorded. Surgeries None recorded. Imaging None recorded. Medication Orders prednisone 20 mg tablet 2022 023 [id number], [address] [place], [address], 18:14:52 Allergy Relief (fluticason e) 50 mcg/actuati on nasal spray,suspe nsion 2022 023 [id number], [address] [place], [address], 18:14:53 benzonatate 100 mg capsule 2022 023 [facility][id number], [address] [place], [address], 18:14:53 Patient TargetsNo targets recorded. Patient Instructions Encounter Date Encounter Id Patient Instructions Last Modified By Organization Details Last Modified Time 11/18/2022 [id number] earache: care instructions Not available 11/18/2022 18:14:50 [...] care for yourself at home? Take an aghf-rlm-rsnmulc pain medicine. Avoid Ibuprofen, Aleve and Aspirin if . If the doctor prescribed antibiotics, take them as directed. Do not stop taking them just because you feel better. You need to take the full course of antibiotics. Be careful when taking lizc-qye-qbyykta cold or influenza (flu) medicines and Tylenol [...] Address Organization Details Recorded Time Multiple myeloma 050546688 Active 2022 ROSEMARY Nelson [facility] 17:53:44 Hypertensive disorder 60356214 Active 2022 JOHN ISABEL ROSEMARY dubois [facility] 3 17:53:54 Problem Notes None [...] oximetry Heart rate Respiratory rate Body temperature Systolic And Diastolic Provider Name and Address Organization Details Last Updated DateTime 3 165.1 cm 25 kg/m2 91083.8 6 g 96 % 96 % 72 /min 16 /min 98.2 [degF] 129/79 mm[Hg] JOHN CHALO [place] - [facility] 3 17:57:14 Social History Question Answer Notes LastModified by [employer] Details LastModified Time Tobacco Smoking Status Never Smoker JOHN ISABEL null, [place] - [facility] 11/18/2022 17:54:47 Have You Recently Traveled Abroad? No Information not available 11/18/2022 Sex: Unknown Functional Status Question Answer Note LastModified by [employer] Details LastModified Time Do you use any illicit or recreational drugs? No Information not available 11/18/2022 Do you or have you ever used any other forms of tobacco or nicotine? No Information not available 11/18/2022 What is your level of alcohol consumption? None Information not available 11/18/2022 Are you currently employed? No Information not available 11/18/2022 Mental Status None recorded. Family History Relationship [...] SNOMED-CT Code Diagnosis ICD10 Code Diagnosis Note [id number] [address] [address] [place] [address] 03/25/2016 11:14:20 03/25/2016 11:58:56 [id number] [address] [place] [address] 03/02/2018 16:03:13 03/02/2018 16:52:53 [id number] [address] [facility] [place] [address] 07/22/2021 15:33:18 07/22/2021 16:11:17 [id number] [address] [place] [address] 01/31/2018 09:28:34 01/31/2018 10:29:41 [id number] [address] [place] [address] 12/01/2018 18:58:33 12/01/2018 19:26:38 [id number] [address] [address] [place] [address] 09/03/2016 11:54:52 09/03/2016 13:42:24 [id number] [address] [place] [address] 08/31/2020 11:01:29 08/31/2020 11:34:54 [id number] [address] [place] [address] 05/02/2016 10:40:45 05/02/2016 14:04:40 [id number] [address] [place] [address] 06/18/2019 11:15:53 06/18/2019 11:48:03 [id number] [address] [place] [address] 12/16/2016 17:56:52 12/16/2016 18:36:33 [id number] [address] [place] [address] 08/08/2018 08:24:52 08/08/2018 09:05:11 [id number] [address] [place] [address] 06/26/2017 13:50:56 06/26/2017 14:55:17 [id number] [address] [place] [address] 03/25/2018 09:24:49 03/25/2018 10:44:58 [id number] Tuan Jacques NP [address] [place] [address] 11/18/2022 13:19:00 11/18/2022 18:19:29 Acute sinusitis 77374396 J01.90 Health Concerns Section Related Observation LastModified by Organization Detai ls LastModified Time None Recorded Concern Status LastModified by Organization Details LastModified Time None Recorded Advance Directives Directive None Recorded Payers Insurance Date Sequence Insurance Name Policy Number Policy Rod Covered Member ID Rod Member ID Guarantor Name 11/18/2022 1 MEDICARE B-SD: [employer] Lillian Copeland [id number] Lillian Copeland 11/18/2022 2 [facility] [id number] Lillian Copeland [id number] Lillian Copeland 08/08/2022 [employer] [facility] ress Occ Med Generic (Move To Hold) [[id number]] Lillian Copeland Notes Date Note Type Note [...] Symptoms:Cough;nasal congestion;nasal discharge Tuan Jacques NP [address] [place], [address], [place] - [facility] 11/18/2022 18:17:58 OBGyn Episode No OBEpisode recorded.
--- NOTE | 2025-03-23 12:03 | HO.ANESPROP2 ---
Documented by User: Monica Mishra NP 03/23/25 12:22 HPI - Anesthesia Eval Consult details Narrative: 79yo F for Colonoscopy Multiple myeloma: [facility] Hematology, dxd 2020, in remission 01/28 on Ninlaro and Prolia q [address] 3 d/t myeloma - follows RTANE, stable at 03/2025 office visit (Creat 1.00 at baseline) PMFSH Active Problems Active Problems: All Active Problems Mid back pain (Acute) Insect bites (Acute) Dysuria (Acute) CKD (chronic kidney disease) stage 3, GFR 30-59 ml/min (Acute) Weight loss (Acute) Constipation (Acute) History of arthroplasty of left knee (Acute) History of arthroplasty of right knee (Acute) Urinary incontinence (Acute) Alberto's esophagus 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 (Acute) Hiatal hernia (Acute) Otitis media of both ears (Acute) Annual physical exam (Acute) Vitamin D deficiency (Acute) Neuropathy (Acute) Iron deficiency (Acute) Raynauds disease (Acute) Varicose veins of left lower extremity with inflammation (Acute) Osteoarthritis of right hip (Acute) Status post total replacement of right hip (Acute) Otalgia of both ears (Acute) Pain of left thumb (Acute) Sinusitis (Acute) Osteoarthritis of left knee (Acute) Osteoarthritis of right knee (Acute) Osteoarthritis of left hip (Acute) Cough (Acute) Upper respiratory tract infection (Acute) Vaginal itching (Acute) Balance disorder (Acute) Hx of meningioma of the brain (Acute) Trigeminal neuralgia of right side of face (Acute) Lip pain (Acute) Otitis media of right ear (Acute) Post-nasal drip (Acute) Cataract (Acute) RLS (restless legs syndrome) (Acute) Insomnia (Acute) History of colonoscopy (Acute) Hx of breast cancer (Acute) Multiple myeloma (Acute) Past Medical History Medical History (Updated 03/03/25 @ 11:13 by Chen Pop MD) Anxiety Alberto's esophagus 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 Osteoarthritis of right hip Personal history of COVID-19 Pain Slow to wake up after anesthesia Achalasia of esophagus Otitis media of right ear Cataract RLS (restless legs syndrome) Insomnia Hx of breast cancer Post-nasal drip Multiple myeloma Ankle fracture, left GERD (gastroesophageal reflux disease) Family History Family History Father Lung cancer Mother Diabetes Hypertension Heart attack Other Mental health disorder Family history of problems with anesthesia: No Surgical History Surgical History (Updated 03/24/25 @ 09:52 by Jenna Villa RN) H/O total knee replacement History of esophagogastroduodenoscopy (EGD) History of right hip replacement (09/11/23) Hx of bilateral cataract extraction History of lumpectomy of right breast History of History of surgery on left wrist History of colonoscopy H/O left knee surgery Status post ORIF of fracture of ankle (~2020) History of Problems with Anesthesia: No Social History Social History Household Members: None Household Members Other:: , 2 sons, Housing: House Are you a primary career technical education instructor to a significant other at home: No Do you presently have visiting nurse or other home services: No Comment: pt knee gave out denies dizziness n/v prior or after fall c/o buttock pain Patient Tobacco Use Status: Former Tobacco user Tobacco use type: Cigarette Years Smoked: 2 e-Cigarette/Vaping Use: Never Used Second Hand Smoke Exposure: No Have you been hit, kicked, punched, or otherwise hurt by someone within the past year? If so, by whom?: No Are you DNR?: No Advance Directives: No Advance Directives Information Provided: Yes service: No Current occupational status: retired Cognitive needs: No Hearing needs: No Vision needs: Yes Meds Allergies Allergy/AdvReac Type Severity Reaction Status Date / Time No Known Allergies Allergy Verified 03/03/25 10:50 Home Medications ?Medication ?Instructions ?Recorded ?Confirmed ?Last Taken ?Type calcium acetate PO .daily 11/30/21 03/03/25 09/10/23 History dorzolamide 22.3 mg-timolol 6.8 ophthalmic (eye) 08/13/23 03/03/25 09/10/23 History mg/mL eye drops ixazomib 3 mg capsule (Ninlaro) mg PO 09/04/23 03/03/25 Unknown History docusate sodium 100 mg capsule 100 mg PO BID 08/18/24 03/03/25 Unknown History sennosides 8.6 mg capsule (senna) 17.2 mg PO BID 08/18/24 03/03/25 Unknown History acyclovir 400 mg tablet 400 mg PO BID 02/04/25 03/03/25 Unknown History Exam Pertinent Lab Results Pertinent Lab Results: Laboratory Tests 01/11/25 14:05 WBC 4.0 L Hgb 12.8 Hct 40.4 Plt Count 256 D Sodium 139 Potassium 3.9 Chloride 103 Carbon Dioxide 28 BUN 15 Creatinine 1.00 Assessment and Plan Assessment Anesthesia Assessment: Chart Reviewed Final Anesthetic Review Family History of Problems with Anesthesia: No History of Problems with Anesthesia: No Documented by User: Lucio Jay MD 03/24/25 10:41 [facility] Past Medical History Medical History (Updated 03/03/25 @ 11:13 by Chen Pop MD) Anxiety Alberto's esophagus 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 Osteoarthritis of right hip Personal history of COVID-19 Pain Slow to wake up after anesthesia Achalasia of esophagus Otitis media of right ear Cataract RLS (restless legs syndrome) Insomnia Hx of breast cancer Post-nasal drip Multiple myeloma Ankle fracture, left GERD (gastroesophageal reflux disease) Family History Family History Father Lung cancer Mother Diabetes Hypertension Heart attack Other Mental health disorder Surgical History Surgical History (Updated 03/24/25 @ 09:52 by Jenna Villa RN) H/O total knee replacement History of esophagogastroduodenoscopy (EGD) History of right hip replacement (09/11/23) Hx of bilateral cataract extraction History of lumpectomy of right breast History of History of surgery on left wrist History of colonoscopy H/O left knee surgery Status post ORIF of fracture of ankle (~2020) Social History Social History Household Members: None Household Members Other:: , 2 sons, Housing: House Are you a primary career technical education instructor to a significant other at home: No Do you presently have visiting nurse or other home services: No Comment: pt knee gave out denies dizziness n/v prior or after fall c/o buttock pain Patient Tobacco Use Status: Former Tobacco user Tobacco use type: Cigarette Years Smoked: 2 e-Cigarette/Vaping Use: Never Used Second Hand Smoke Exposure: No Have you been hit, kicked, punched, or otherwise hurt by someone within the past year? If so, by whom?: No Are you DNR?: No Advance Directives: No Advance Directives Information Provided: Yes service: No Current occupational status: retired Cognitive needs: No Hearing needs: No Vision needs: Yes Meds Allergies Allergy/AdvReac Type Severity Reaction Status Date / Time No Known Allergies Allergy Verified 03/03/25 10:50 Home Medications ?Medication ?Instructions ?Recorded ?Confirmed ?Last Taken ?Type calcium acetate PO .daily 11/30/21 03/03/25 09/10/23 History dorzolamide 22.3 mg-timolol 6.8 ophthalmic (eye) 08/13/23 03/03/25 09/10/23 History mg/mL eye drops ixazomib 3 mg capsule (Ninlaro) mg PO 09/04/23 03/03/25 Unknown History docusate sodium 100 mg capsule 100 mg PO BID 08/18/24 03/03/25 Unknown History sennosides 8.6 mg capsule (senna) 17.2 mg PO BID 08/18/24 03/03/25 Unknown History acyclovir 400 mg tablet 400 mg PO BID 02/04/25 03/03/25 Unknown History Exam Airway Mallampati Class: II TM Dist: >3cm Neck ROM: Full Assessment and Plan Assessment Anesthesia Assessment: Anesthesia Plan Discussed Final Anesthetic Review NPO: Yes ASA Class: III Final Preanesthetic Review: No Changes in Pt Med Stat, Meds/Allgs Chart Reviewed, Consent Obtained/Reviewed and Anes Risks/Benef Reviewed Patient Risk: Intermediate Procedure Risk: Low Anesthetic Plan Anesthetic Plan: TIVA Disposition: Standard PACU
[2025-03-23 12:22] VITALS: BMI 23.8
--- NOTE | 2025-03-24 09:32 | PC.NURSE ---
pt called stated tripped knee gave out last night hit her head denies loc denies dizziness c/o slight h/a dr aguilar aware okay to come in to be assessed pt aware
[2025-03-24 09:40] VITALS: BP 125/67; PULSE 88; RESP 20; TEMP 36.1; O2SAT 97
[2025-03-24] MEDS: Lactated Ringers 1,000 ML 100 ML IVCONT (10:04)
--- NOTE | 2025-03-24 10:05 | PC.NURSE ---
anesthesia aware of patient fall denies dizziness denies loc
--- NOTE | 2025-03-24 10:39 | PC.NURSE ---
pt denies pain denies h/a after hydration anesthesia aware and dr aguilar. pt aware to follow up with pcp and make aware of fall and immediately go to the er if any change in status verbalized understanding pwd no grimacing neuros intact
--- NOTE | 2025-03-24 11:01 | MHC.SHP ---
Pre-Procedural Eval Section A - 24 Hr Update-Section A only Date of Service: 03/24/25 Section B - Complete if H&P > 30 days Chief Complaint: screening Relevant Family History (Specify if Yes): No Relevant Social History: None Present Medications: see Short Stay Collaborative assessment Medical History: Significant History (Anxiety Alberto's esophagus 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 Osteoarthritis of right hip Personal history of COVID-19 Pain Slow to wake up after anesthesia Achalasia of esophagus Otitis media of right ear Cataract RLS (restless legs syndrome) Insomnia Hx of breast cancer Post-nasal drip Multiple myeloma Ankl) History of Previous Operations: Relevant previous surgery/procedure and date(s) ( H/O total knee replacement History of esophagogastroduodenoscopy (EGD) History of right hip replacement (09/11/23) Hx of bilateral cataract extraction History of lumpectomy of right breast History of History of surgery on left wrist History of colonoscopy H/O left knee surgery Status post) Allergies: Allergies Allergy/AdvReac Type Severity Reaction Status Date / Time No Known Allergies Allergy Verified 03/03/25 10:50 Review of Systems Sugical H&P ROS: Negative: Constitution, Cardiovascular, Respiratory, Neurological, Psychiatric, Hem-Onc, Allergic/Immunologic, Gastrointestinal, Genitourinary, Musculoskeletal, Integumentary, Endocrine and Eyes/Ears/Nose/Throat Exam Surgical H&P Exam: Normal: HEENT, Normal: Heart, Normal: Lungs, Normal: Extremities, Normal: Abdomen, Normal: Skin and Normal: Neurological Plan Diagnosis/Plan: Unchanged I have reviewed the history and physical and performed a pertinent physical examination on my patient. No changes have occurred unless specified. Time Spent With Patient Time: Total time managing care of this patient today ____ minutes.
--- NOTE | 2025-03-24 11:46 | P.OPN-COLO_ITS ---
Colonoscopy Operative Note Operative Note Date of Service: 03/24/25 Narrative: Operative Information Procedure Description: Colonoscopy Indication: screening Anesthesia: MAC COLONOSCOPY Instrument: Olympus variable stiffness pediatric scope 190L Colonoscopy Monitoring: Vital signs and clinical assessment, continuous EKG monitoring, Pulse oximetry, Carbon Dioxide monitoring and blood pressure monitoring were done throughout the procedure. Colon withdrawal time was 27 minutes. Procedure: The patient was placed in the left lateral decubitis position and pre-procedure medications were administered. After a digital rectal examination of the ano-rectum, the video colonoscope was inserted into the rectum and advanced through the colon to the cecum/TI. The colonoscope was slowly withdrawn in a retrograde panoramic fashion and the colon mucosa was carefully examined including a retroflexed view of the rectum. Findings and interventions are described below. Procedure Difficulty: moderate Findings: Terminal Ileum-normal Cecum: Right sided retroflexion- normal Ascending Colon: normal Transverse Colon -normal Descending Colon:normal Sigmoid Colon: moderate diverticulosis, 6-8 mm sessile polyp removed with cold snare Rectum: Retroflexion with moderate internal hemorrhoids seen, grade I, x 2 sessile polyps 4-6 mm removed with cold snare Anorectum - normal Intervention: cold snare Colon preparation: Jefferson Bowel Preparation Scale Right colon; 2 Transverse colon: 2 Left colon; 1-2 (0 = Unprepared colon segment with mucosa not seen due to solid stool that cannot be cleared. 1 = Portion of mucosa of the colon segment seen, but other areas of the colon segment not well seen due to staining, residual stool and/or opaque liquid. 2 = Minor amount of residual staining, small fragments of stool and/or opaque liquid, but mucosa of colon segment seen well. 3 = Entire mucosa of colon segment seen well with no residual staining, small fragments of stool or opaque liquid) Impression and Post Procedure Diagnosis: diverticulosis colon polyps internal hemorrhoids Plan: High fiber diet leaflet Avoid straining at stool, epsom salts and sitz bath, anusol supps or cream Repeat Colonoscopy in 1-2 years due to areas of fair prep or earlier if clin ically indicated Above findings were reviewed with the patient and relevant handouts were provided if indicated.
[2025-03-24 11:52] VITALS: BP 127/68; PULSE 68; RESP 15; TEMP 36.2; O2SAT 98
[2025-03-24 12:04] VITALS: BP 136/73; PULSE 68; RESP 16; TEMP 36.1; O2SAT 94
== END 2025-03-24 12:43 | disposition home or self-care (01) ==
PROVIDERS: PCP Internal Medicine; Visit Provider Internal Medicine Gastroenterology
PROC: 0DJD8ZZ Inspection of Lower Intestinal Tract, Via Natural or Artificial Opening Endoscopic (ICD-10-PCS; CPT 45378; principal; 2025-03-24 11:50)
DX: Z12.11 Encounter for screening for malignant neoplasm of colon (principal); D12.5 Benign neoplasm of sigmoid colon; K62.1 Rectal polyp; K57.30 Diverticulosis of large intestine without perforation or abscess without bleeding; K64.0 First degree hemorrhoids; I10 Essential (primary) hypertension; D50.9 Iron deficiency anemia, unspecified; K22.70 Barrett's esophagus without dysplasia; Z85.3 Personal history of malignant neoplasm of breast; K21.9 Gastro-esophageal reflux disease without esophagitis; Z87.891 Personal history of nicotine dependence; Z79.899 Other long term (current) drug therapy
CPT/HCPCS: 45385; 88305; J0168; J1610; J2003; J2250; J2704

== ENCOUNTER → 2025-03-24 09:28 | Outpatient (BNV) | payer MEDICARE, OTHER, SELFPAY | PROVIDERS: PCP Internal Medicine; Visit Provider Internal Medicine Gastroenterology | DX: Z12.11 Encounter for screening for malignant neoplasm of colon (principal); D12.5 Benign neoplasm of sigmoid colon; D12.8 Benign neoplasm of rectum; K57.30 Diverticulosis of large intestine without perforation or abscess without bleeding; K64.0 First degree hemorrhoids | CPT/HCPCS: 45385 ==

== ENCOUNTER 2025-05-11 09:53 | Outpatient (AMB) | payer MEDICARE, OTHER, SELFPAY ==
[2025-05-11 10:10] VITALS: BP 118/78; PULSE 66; RESP 17; TEMP 36.8; O2SAT 99; BMI 23.3
--- NOTE | 2025-05-11 10:10 | A.OFFPC_ITS ---
Vital Signs 05/11/25 10:10 Height 5 ft 5 in Weight 140 lb BMI 23.3 BP 118/78 Blood Pressure Location Lt brachial Position Sitting Respiration 17 Pulse 66 Pulse Source Pulse Oximeter Temp 98.2 F Temp Source Oral Pulse Oximetry (%) 99 Oxygen Delivery Method Room Air Intake Visit Reasons: 3 months Follow up Allergies mirtazapine Adverse Reaction (Intermediate, Verified 05/11/25 10:41) Abdominal Pain Medication List - Last Reconciled 05/11/25 by Chen Pop MD acetaminophen 650 mg (2 x 325 mg) PO Q6H PRN 30 days acyclovir 400 mg PO BID calcium acetate calcium 1200 mg vitamin d3 1000 units cane As directed docusate sodium 100 mg PO BID dorzolamide-timolol 22.3-6.8 mg/mL ophthalmic (eye) duloxetine 60 mg PO DAILY fluticasone propionate 50 mcg/actuation 1 spray intranasal DAILY gabapentin 600 mg PO BID ixazomib (Ninlaro) mg PO lisinopril 2.5 mg PO DAILY mecobalamin (vitamin B12) PO mirtazapine 7.5 mg PO BEDTIME montelukast (Singulair) 10 mg PO BEDTIME pantoprazole 40 mg PO DAILY [Powerlift reclinder slim width and depth ] [Raised toilet seat duration: lifetime] ropinirole 6 mg (3 x 2 mg) PO BEDTIME sennosides (senna) 17.2 mg PO BID [SHOWER CHAIR As directed] trazodone 1-2 tabl orally bedtime; walker Folding Front wheeled walker Tobacco use date assessed: 05/11/25 Fall risk assessment: No Falls in past year Last assessed Fall Risk: 05/11/25 Dental Screening Dental Screen Date: 01/11/25 HPI 3 months Follow up HPI Details Pt presents for f/u chronic kidney disease, hypertension multiple myeloma established with Hematology, peripheral neuropathy controlled on gabapentin. [facility] Medical History (Updated 05/11/25 @ 10:23 by Chen Pop MD) Anxiety Alberto's esophagus 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 Osteoarthritis of right hip Personal history of COVID-19 Pain Slow to wake up after anesthesia Achalasia of esophagus Otitis media of right ear Cataract RLS (restless legs syndrome) Insomnia Hx of breast cancer Post-nasal drip Multiple myeloma Ankle fracture, left GERD (gastroesophageal reflux disease) Surgical History (Updated 03/24/25 @ 09:52 by Jenna Villa RN) H/O total knee replacement History of esophagogastroduodenoscopy (EGD) History of right hip replacement (09/11/23) Hx of bilateral cataract extraction History of lumpectomy of right breast History of History of surgery on left wrist History of colonoscopy H/O left knee surgery Status post ORIF of fracture of ankle (~2020) Family History Father Lung cancer Mother Diabetes Hypertension Heart attack Other Mental health disorder Social History Household Members: None Household Members Other:: , 2 sons, Housing: House Are you a primary care assistant to a significant other at home: No Do you presently have visiting nurse or other home services: No Comment: pt knee gave out denies dizziness n/v prior or after fall c/o buttock pain Patient Tobacco Use Status: Former Tobacco user Tobacco use type: Cigarette Years Smoked: 2 e-Cigarette/Vaping Use: Never Used Second Hand Smoke Exposure: No service: No Current occupational status: retired Cognitive needs: No Hearing needs: No Vision needs: Yes Questionnaire Thrive Questionnaire Date Thrive assessed: 05/11/25 I am a: Patient What is your living situation today?: I have a steady place to live Within the past 12 months, did the food you bought not last and you didn't have the money to get more?: Often true Within the past 12 months, did you worry whether your food would run out before you got money to buy more?: Often true Do you have trouble paying for medicines?: No Do you have trouble getting transportation to medical appointments?: No Do you have trouble paying your heating and electricity bill?: No Do you have trouble taking care of your child, family member or friend?: No Do you have trouble with day-to-day activities such as bathing, preparing meals, shopping, managing finances, etc.?: Yes Are you currently unemployed and looking for a job?: No Are you interested in more education?: No Please select the resources that you would like help with: None Currently or been in a relationship where the following occur: No concerns reported THRIVE Score: 2 ROCK-7 AMB Questionnaire ROCK-7 Date ROCK - 7 assessed: 03/03/25 Source: Developed by Drs. Talha Steve, Halina Pena, Levar Earl and colleagues, with an educational ramón from [employer]. Review of Systems Const All systems reviewed & are unremarkable except as noted in HPI and below Eyes Reports no additional complaints ENT Reports no additional complaints Card Reports no additional complaints Resp Reports no additional complaints GI Reports no additional complaints Reports no additional complaints Neuro Reports no additional complaints Physical exam (Primary Care) Vital Signs: Last Vital Signs Temp 98.2 F 05/11/25 10:10 Pulse 66 05/11/25 10:10 Resp 17 05/11/25 10:10 BP 118/78 05/11/25 10:10 Pulse Ox 99 05/11/25 10:10 Oxygen Delivery Method Room Air 05/11/25 10:10 BMI result Body Mass Index 23.3 Tobacco/Smoking Status: Tobacco use Status Tobacco use date assessed 05/11/25 05/11/25 10:18 Patient Tobacco Use Status Former Tobacco user 05/11/25 10:10 Tobacco use type Cigarette 05/11/25 10:10 e-Cigarette/Vaping Use Never Used 05/11/25 10:10 Thrive Assessment: Date of Thrive Assessment Date Thrive assessed 05/11/25 05/11/25 10:18 Currently or been in a relationship where the following occur: No concerns reported Const General: no acute distress HENMT Head: Yes normal to inspection Throat: Yes posterior oropharynx normal Neck Neck: Yes no lymphadenopathy and Yes supple Resp Effort & Inspection: normal respiratory effort Auscultation: clear to auscultation bilaterally Cardio Rhythm: regular rhythm Heart sounds: S1 normal heart sound present and S2 normal heart sound present GI Inspection: Yes normal to inspection Palpation (GI): Soft to palpation Percussion: Yes normal to percussion Auscultation: normal bowel sounds Coding Level of Care Code Est Pt Level 4 (93387) Diagnoses Multiple myeloma C90.00 Trigeminal neuralgia of right side of face G50.0 CKD (chronic kidney disease) stage 3, GFR 30-59 ml/min N18.30 Hyperlipidemia E78.5 Assessment & Plan Assessment & Plan (1) Multiple myeloma: Comment: [facility] Hematology, dxd 2020, in remission 01/28 on Ninlaro and Prolia q 3 months Code(s): C90.00 - Multiple myeloma not having achieved remission Category: Medical Plan: Follow-up with Hematology (2) Trigeminal neuralgia of right side of face: Code(s): G50.0 - Trigeminal neuralgia Category: Medical Plan: Continue gabapentin (3) CKD (chronic kidney disease) stage 3, GFR 30-59 ml/min: Comment: Established with Nephrology Code(s): N18.30 - Chronic kidney disease, stage 3 unspecified Category: Medical Plan: Monitor renal function avoid nephrotoxins follow-up with nephrology (4) Hyperlipidemia: Code(s): E78.5 - Hyperlipidemia, unspecified Category: Medical Plan: Low-cholesterol diet and increase physical activity discussed with the patient. She will have a repeat lipid profile if the cholesterol is still elevated patient would like to try a statin Orders: Orders Comprehensive [place]. Panel Fast Today C90.00 - Multiple myeloma not having achieved remission, E61.1 - Iron deficiency, E78.5 - Hyperlipidemia, unspecified, G50.0 - Trigeminal neuralgia, N18.30 - Chronic kidney disease, stage 3 unspecified Comprehensive [place]. Panel Fast 9 Months C90.00 - Multiple myeloma not having achieved remission, E55.9 - Vitamin D deficiency, unspecified, E78.5 - Hyperlipidemia, unspecified, N18.30 - Chronic kidney disease, stage 3 unspecified Complete Blood Count Auto Diff 9 Months C90.00 - Multiple myeloma not having achieved remission, E55.9 - Vitamin D deficiency, unspecified, E78.5 - Hyperlipidemia, unspecified, N18.30 - Chronic kidney disease, stage 3 unspecified Lipid Panel 9 Months C90.00 - Multiple myeloma not having achieved remission, E55.9 - Vitamin D deficiency, unspecified, E78.5 - Hyperlipidemia, unspecified, N18.30 - Chronic kidney disease, stage 3 unspecified Lipid Panel Today E78.5 - Hyperlipidemia, unspecified TSH reflex Free T4 9 Months C90.00 - Multiple myeloma not having achieved remission, E55.9 - Vitamin D deficiency, unspecified, E78.5 - Hyperlipidemia, unspecified, N18.30 - Chronic kidney disease, stage 3 unspecified Vitamin D 25-OH Total 9 Months C90.00 - Multiple myeloma not having achieved remission, E55.9 - Vitamin D deficiency, unspecified, E78.5 - Hyperlipidemia, unspecified, N18.30 - Chronic kidney disease, stage 3 unspecified Medications: Discontinued mirtazapine Discontinued Reason: Doctor's Order 7.5 mg PO BEDTIME 90 tabs 1RF
--- OUTSIDE RECORDS SUMMARY | 2025-05-11 11:11 | XMS_ITS | Clinical Summary ---
Author Organization [facility] Address [address] [address] Phone Care Team Providers Care Medical Device Engineer Name Role Phone Gabriele Mayersjuni Carlisle Tess Hawthorne DDS Unavailab le Bro Marino DMD Unavailable + [phone] Chen Pop MD Primary Care Provider [phone] Allergies Active Allergy Reactions Criticality Noted Date Comments Doxycycline Hyclate 04/19/2021 Sulfa (Sulfonamide Antibiotics) 04/09 Medications pantoprazole (PROTONIX) 40 MG tablet Take 40 mg by mouth 2 (two) times a day. Active propranolol (INDERAL) 40 MG immediate release tablet Take 20 mg by mouth 2 (two) times a day. Active vitamin E 100 units capsule Take 400 Units by mouth daily. Active therapeutic multivitamin tablet Take 1 tablet by mouth daily. Active DULoxetine (CYMBALTA) 60 MG capsule Take 60 mg by mouth daily. Active Ca cit-D3-mag#11-zin m-nivv-zmz-bor (CALTRATE 600+D) 600 mg calcium- 800 unit-50 mg Tab Take 1 tablet by mouth daily. Active acetaminophen (TYLENOL) 325 mg tablet Take 2 tablets (650 mg total) by mouth every 4 (four) hours as needed for mild pain. 9 Active ibuprofen (ADVIL,MOTRIN) 200 MG tablet Take 2 tablets (400 mg total) by mouth every 6 (six) hours as needed for pain (specific location in comments). Active ascorbic acid, vitamin C, (VITAMIN C) 500 MG tablet Take 500 mg by mouth daily. Active traZODone (DESYREL) 50 MG tablet Take 25 mg by mouth nightly at bedtime. Active rOPINIRole (REQUIP) 0.5 MG tablet TAKE 2 TABLETS BY MOUTH AT BEDTIME, 1-3 HOURS BEFORE BEDTIME 2 Active gabapentin (NEURONTIN) 300 MG capsule 2 Active acyclovir (ZOVIRAX) 400 MG tablet Take 400 mg by mouth 2 (two) times a day. 2 Active chlorhexidine (PERIDEX) 0.12 % solution Use as directed 15 mL in the mouth or throat 2 (two) times a day. 120 mL 2 Active ixazomib (NINLARO) 3 mg capsule Take 3 mg by mouth. 2 Active prochlorperazine (COMPAZINE) 5 MG tablet Take by mouth. 1 Active aspirin 81 MG EC tablet Take 81 mg by mouth daily. Active lisinopril-hydroC HLOROthiazide (PRINZIDE,ZESTORE TIC) 10-12.5 mg per tablet Take 1 tablet by mouth. 2 Active lisinopril (PRINIVIL,ZESTRIL ) 5 MG tablet 3 Active traMADoL (ULTRAM) 50 mg tablet TAKE 1/2 TABLET BY MOUTH EVERY 8 HOURS 3 Active timolol (TIMOPTIC-XE) 0.5 % ophthalmic gel-forming APPLY 1 DROP INTO LEFT EYE EVERY MORNING 3 Active capsaicin (ZOSTRIX) 0.025 % cream Apply topically 2 (two) times a day. 25 g 5 3 Active lidocaine 2 % Soln Use as directed 15 mL in the mouth or throat every 4 (four) hours as needed. 300 mL 5 4 Active lidocaine 2 % Soln APPLY TO THE AFFECTED AREA EVERY 4 HOURS NEEDED FOR SYMPTOM CONTROL. 100 mL 2 4 Active diphenhydramine-l rtteorsc-qdgp-fos -simethicone (MAGIC MOUTHWASH-BLM) [phone] mg/30mL suspensionIndicat ions:Trigeminal neuropathy Swish and spit 5 mL 4 (four) times a day as needed. 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 She has severe GERD that disqualifies her from using oral bisphosphonates. She is a candidate for subcutaneous Prolia every 6 months. I have encouraged her to continue proper calcium and vitamin D supplementation in addition to resuming daily weightbearing exercises gradually building up to the goal of 45-60 minutes daily, preferably at home if she likes to the music since she is afraid of going outside and falling because of poor gait due to poorly healed left ankle fracture in August 2019. I provided her with pamphlet on its side effects to read in the right questions for me in addition to asking her for basic lab work prior to administering it. Use of raloxifene (Evista) 04/20/2021 Assessment & Plan (04/20/2021 10:17 PM EDT): Carefully continue daily as prescribed until Prolia is approved and scheduled. History of vertebral fracture repair 04/20/2021 Assessment & Plan (04/20/2021 10:15 PM EDT): She had vertebroplasty and kyphoplasty on vertebral T12 and L3 compression fractures in July 2020 and December 2020 respectively Gastroesophageal reflux dise ase with esophagitis without hemorrhage 04/20/2021 Assessment & Plan (04/20/2021 10:25 PM EDT): Avoid late, large, spicy meals. Keep headboard elevated at 45 angle for nighttime. Carefully continue Protonix as prescribed. Trigeminal neuralgia 04/20/2021 Assessment & Plan (04/20/2021 10:16 PM EDT): She was asked to stop carbamazepine last week after 10 years of using it due to bilateral hands and feet tremor that appears improving. She is following closely with her neurologist-Dr Vinson. On SSRI therapy 04/20/2021 Assessment & Plan (04/20/2021 10:17 PM EDT): Monitor for mood swings, increased muscle rigidity and temperature intolerance. Immunizations Immunization Administration Dates Next Due Influenza High-Dose Quadriva lent Preservative Free IM 06/16/2023,07/04/2022 Influenza High-Dose Trivalen t Preservative Free IM 07/08/2019,06/13/2018,08/18/2016 Influenza Quadrivalent Adjuv anted Preservative Free IM 06/21/2021,06/14/2020 Influenza, Unspecified Formulation 08/09/2022 Pneumococcal conjugate PCV13 05/05/2021,12/06/19 19 Pneumococcal polysaccharide PPSV23 05/23/2011 RSV Vaccine (bivalent) 08/07/2023 Td (adult) 5 Lf Tetanus Toxo id, PF, Adsorbed 06/27/2017,08/16/2013 Td (adult),2 Lf Tetanus Toxo id, PF, Adsorbed 03/25/2018 Tdap 11/30/2021 Zoster recombinant 11/30/2021,09/28/2021 Family History Medical History Relation Comments Lung cancer Father Breast cancer Maternal Aunt Diabetes Mother Hypertension Mother Relation Status Comments Father Maternal Aunt Mother Social History Tobacco Use Types Packs/Day Years Used Date Smoking Tobacco: Former Cigarettes Q uit: 1970 Smokeless Tobacco: Never Tobacco Cessation:Counseling Given: Not Answered Alcohol Use Standard Drinks/Week Comments Yes 1 (1 standard drink = 0.6 oz pur e alcohol) once a month Education Answer Date Recorded Are you interested in more education? Not on freddie e 01/04/2023 Are you concerned about learning? Not on file 01/04/2023 No 01/04/2023 No 01/04/2023 Digital Access Answer Date Recorded No 02/02/2023 No 02/02/2023 Reliable internet access at home? Not on file 02/02/2023 Device with a working camera? Not on file 05 / Comments No Sex and Gender Information Value Date Recorded Sex Assigned at Not on file Legal Sex Female 10:07 PM EDT Gender Identity Not on file Sexual Orientation Not on file Last Filed Vital Signs Vital Sign Reading Time Taken Comments Blood Pressure 100/70 01/22/2023 11:18 AM EDT Pulse 56 01/21/2019 11:21 AM EDT Temperature 36.5 C (97.7 F) 01/22/2023 11:18 AM EDT Respiratory Rate 16 01/02/2019 5:45 PM EDT Oxygen Saturation 91% 01/21/2019 11: 21 AM EDT Inhaled Oxygen Concentration - - Weight 76 kg (167 lb 9.6 oz) 04/20/2021 9:25 AM EDT with sandals Height 165.1 cm (5' 5 ) 04/20/2021 9:25 AM EDT Body Mass Index 27.89 04/20/2021 9:25 AM EDT Plan of Treatment Health Maintenance Due Date Last Done Comments LIPID PANEL 1946 DEPRESSION SCREENING 1958 SMOKING Hx and SMOKELESS TOBACCO SCREENING 12/09/1959 HEPATITIS C SCREENING 1964 OSTEOPOROSIS SCREENING INITIAL (ONE-TIME) 12/09/2011 PNEUMOCOCCAL VACCINES (50+ years) (3 of 3 - PPSV23, PCV20 or PCV21) 06/30/2021 05/05/2021, 12/05/2018, 05/23/2011 CREATININE LEVEL 04/20/2022 04/20/2021 POTASSIUM LEVEL 04/20/2022 04/20/2021 BLOOD PRESSURE 07/25/2023 01/22/2023 INFLUENZA VACCINE (#1) 2025 , 08/09/2022, 07/04/2022, Additional history exists COVID-19 VACCINE ( season) 2025 06/16/2023, 06/20/2022, 06/21/2021, Additional history exists Adult Td,Tdap Booster 12/01/2031 11/30/2021 , 03/25/2018, 06/27/2017, Additional history exists ZOSTER VACCINES Completed 11/30/2021, 09/28/2021 RSV VACCINE Completed 08/07/2023 HEPATITIS A VACCINES Aged Out No long er eligible based on patient's age to complete this topic HIB VACCINES Aged Out No longer eligi ble based on patient's age to complete this topic MENINGOCOCCAL VACCINES (ACWY) Aged Out No longer eligible based on patient's age to complete this topic MENINGOCOCCAL VACCINES (B) Aged Out N o longer eligible based on patient's age to complete this topic Medical Devices Not on file Procedures Procedure Name Priority Date/Time Associated Diagnosis Comments COMPREHENSIVE METABOLIC PANEL Routine 04/20/2021 10:47 AM EDT Age-related osteoporosis with current pathological fracture, initial encounter Use of raloxifene (Evista) from Last 3 Months or Most Recently Relevant to Health Maintenance Results * (ABNORMAL) Comprehensive metabolic panel (04/20/2021 10:47 AM EDT) SODIUM 138 133 - 146 mmol/L [facility] POTASSIUM 4.8 3.3 - 5.1 mmol/L [facility] CHLORIDE 101 96 - 108 mmol/L [facility] CO2 25 21 - 35 mmol/L [facility] BUN 60(H) 6 - 19 mg/dL [facility] CREATININE 3.70(H) 0.5 - 1.5 mg/dL [facility] GLUCOSE 120(H) 70 - 99 mg/dL [facility] ALBUMIN 3.8(L) 3.9 - 4.8 g/dL [facility] TOTAL PROTEIN 7.4 6.5 - 8.0 g/dL [facility] CALCIUM 9.9 8.4 - 10.3 mg/dL [facility] ALKALINE PHOSPHATASE 80 39 - 117 U/L [facility] TOTAL BILIRUBIN 0.2 0.0 - 1.2 mg/dL [facility] AST 24 0 - 37 U/L [facility] ALT 10 0 - 40 U/L [facility] GLOBULIN 3.6 1 - 4.8 g/dL [facility] EGFR 11(L) >59 mL/min/1.7 3m2 [facility] Comment:Estimated glomerular filtration rate calculated using the CKD-EPI equation. ANION GAP 17 10 - 20 mmol/L [facility] Blood 04/20/2021 10:4 7 AM EDT 04/20/2021 10:50 AM EDT us Makenna Ayers MD LAB BLOOD ORDERABLES Fin al Result [facility] [address] [place] [address] from Last 3 Months or Most Recently Relevant to Health Maintenance Insurance MEDICARE PART A & B MEDICARE SUPPLEMENT MEDICARE PART A & B Member Subscriber Plan / Payer (Ef fective 2011-Present) Name:Lillian Copeland Member ID:[id number] Relation to Subscriber:Self Name:Lillian Copeland Subscriber ID:[id number] Payer ID:[id number] Group ID:Not on file Type:Medicare Address: [employer] [address] [place] MEDICARE SUPPLEMENT MEDICARE PART A & B [facility] MEDICARE SUPPLEMENT MEDICARE PART A & B MEDICARE SUPPLEMENT MEDICARE SUPPLEMENT MEDICARE PART A & B MEDICARE SUPPLEMENT MEDICARE PART A & B Member Subscriber Plan / Payer (Ef fective 2011-Present) Name:Lillian Copeland Member ID:[id number] Relation to Subscriber:Self Name:MinLillian Subscriber ID:[id number] Payer ID:[id number] Group ID:Not on file Type:Medicare Address: [employer] [address] [place] [address] [place] [address] MEDICARE SUPPLEMENT MEDICARE PART A & B Member Subscriber Plan / Payer (Ef fective 2011-Present) Name:Lillian Copeland Member ID:[id number] Relation to Subscriber:Self Name:Lillian Copeland Subscriber ID:[id number] Payer ID:[id number] Group ID:Not on file Type:Medicare Address: [employer] [address] [place] [phone] [facility] MEDICARE SUPPLEMENT MEDICARE PART A & B Member Subscriber Plan / Payer (Ef fective 2011-Present) Name:Lillian Copeland Member ID:[id number] Relation to Subscriber:Self Name:Lillian Copeland Subscriber ID:[id number] Payer ID:[id number] Group ID:Not on file Type:Medicare Address: [employer] [address] [place] [id number] [facility] MEDICARE SUPPLEMENT Advance Directives For more information, please contact: [phone] (9AM - 5PM Cynthia/[facility], Saturday-Saturday) Documents on File Type Date Recorded Patient Airport Skilled Maintenance Supervisor Expl anation Healthcare Proxy 01/05/2019 Care Teams Medical Device Engineer Relationship Specialty Start Date End Date Chen Pop MD [address] [place] [address] PCP - General Internal Medicine 05/22/24 Tess Thomas DDS home furnishings sales representative 08/06/18 Bro Marino DMD [address] [place] [phone] [email or web address] Surgeon home furnishings sales representative 01/21/19 Additional Source Comments The information contained in this document represents components of the legal health record. It is not the complete legal health record.[facility]
--- OUTSIDE RECORDS SUMMARY | 2025-05-11 11:11 | XMS_ITS | Encounter Summary ---
Author Organization [facility] Address [address] [facility] [address] [place] [address] Phone Care Team Providers Care Military Aircraft Designer Name Role Phone Judy Abreu MD Primary Care Provider Tess Thomas DDS Unavailab le Bro Marino DMD Unavailable + [phone] Chen Pop MD Primary Care Provider [phone] Encounter Details Date Type Department Care Team (Late st Contact Info) Description 01/02/2019 Procedure Pass [facility] PERIOP DEPT [address] [place] [address] Social History Tobacco Use Types Packs/Day Years Used Date Smoking Tobacco: Former Cigarettes Q uit: 1970 Smokeless Tobacco: Never Alcohol Use Standard Drinks/Week Comments Yes 1 (1 standard drink = 0.6 oz pur e alcohol) once a month Comments No Sex and Gender Information Value Date Recorded Sex Assigned at Not on file Legal Sex Female 10:07 PM EDT Gender Identity Not on file Sexual Orientation Not on file documented as of this encounter Plan of Treatment Not on file documented as of this encounter Visit Diagnoses Not on filedocumented in this encounter Care Teams Military Aircraft Designer Relationship Specialty Start Date End Date Judy Abreu MD [address] [facility] [address] [place] [address] PCP - General Internal Medicine 06/27/18 05/21/24 Chen Pop MD [facility] [address] [place] [id number] PCP - General Internal Medicine 05/22/24 Tess Thomas DDS [address] [place] [address] [address] [place] [address] claim investigator 08/06/18 Bro Marino, JENNIFER [address] [place] [phone] [email or web address] Surgeon claim investigator 01/21/19 documented as of this encounter Additional Source Comments The information contained in this document represents components of the legal health record. It is not the complete legal health record.[facility]
--- OUTSIDE RECORDS SUMMARY | 2025-05-11 11:11 | XMS_ITS | Patient Health Record ---
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 Problem Reflux esophagitis (766715069) Reflux esophagitis (530.11) Active confirmed Problem Esophageal reflux (581011709) Esophageal reflux (530.81) Active confirmed Problem Alberto's esophagus (373048653) 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 Problem Constipation (49659031) Unspecified constipation (564.00) Active confirmed Problem Screening for malignant neoplasm of colon (013679568) Special screening for malignant neoplasms, colon (V76.51) Active confirmed Plan Of Treatment Future Test Test Name Order Date UPPER GI ENDOSCOPY 06/15/2011 COLONOSCOPY 06/15/2011 Insurance Providers Payer Name Payer Address Payer Phone Subscriber Number Group Number Insured Name Patient Relationship to Insured Coverage Start Date Coverage End Date MEDICARE OF [facility] [address] [place] [address] [id number] MELIDA LAZCANO Self - patient is the [facility] [address] [place] [phone] [phone] [id number] MELIDA LAZCANO Self - patient is the insured Medical (General) History Medical History History ICD Code Achalsia GERD with Alberto's esophagus and esopha gitis meningioma Denies [place],DM,CVA,Lung disease,renal dise ase migraines Surgical History Surgery Date(Month/Year) meningioma removed in May [address] Andre at [facility]. Heller myotomy 09/1999 Varicose veins
== END 2025-05-11 10:37 | disposition home or self-care (01) ==
LOC: HO.HMCC 09:54
PROVIDERS: PCP Internal Medicine; Visit Provider Internal Medicine
DX: C90.00 Multiple myeloma not having achieved remission (principal); G50.0 Trigeminal neuralgia; N18.30 Chronic kidney disease, stage 3 unspecified; E78.5 Hyperlipidemia, unspecified

== ENCOUNTER → 2025-05-11 09:53 | Outpatient (BNVA) | payer MEDICARE, OTHER, SELFPAY | PROVIDERS: PCP Internal Medicine; Visit Provider Internal Medicine | DX: C90.00 Multiple myeloma not having achieved remission (principal); G50.0 Trigeminal neuralgia; N18.30 Chronic kidney disease, stage 3 unspecified | CPT/HCPCS: 99212 ==

== ENCOUNTER 2025-06-18 09:23 | Outpatient (REF) | payer MEDICARE, OTHER, SELFPAY ==
--- OUTSIDE RECORDS SUMMARY | 2025-06-18 10:00 | XMS_ITS | Encounter Summary ---
Author Organization [facility] Address [address] [place] [address] Care Team Providers Care Inspector Tool Name Role Phone Judy Mack MD Primary Care Provider Encounter Details Date Type Department Care Team (Late st Contact Info) Description 07/31/2024 Lab Requisition [facility] - Main Lab [address] [facility] [place] [address] Brian Avalos MD [address] [place] [phone] Encounter for other general examination Social History [...] AM EST) WBC 4.7(L) 4.8 - 10.8 K/[facility] LAB HEMETOLOGY METHOD 07/31/2024 8:37 AM [facility] RBC 2.90(L) 3.80 - 4.80 M/[facility] LAB HEMETOLOGY METHOD 07/31/2024 8:37 AM [facility] Hemoglobin 9.0(L) 11.5 - 16.0 g/dL LAB HEMETOLOGY METHOD 07/31/2024 8:37 AM [facility] Hematocrit 29.1(L) 35.0 - 47.0 % LAB HEMETOLOGY METHOD 07/31/2024 8:37 AM [facility] MCV 101.4(H) 79.0 - 98.0 FL LAB HEMETOLOGY METHOD 07/31/2024 8:37 AM [facility] MCH 31.4 27.0 - 32.0 pcg LAB HEMETOLOGY METHOD 07/31/2024 8:37 AM [facility] MCHC 30.9(L) 32.0 - 37.0 g/dL LAB HEMETOLOGY METHOD 07/31/2024 8:37 AM [facility] RDW 14.1 11.0 - 15.0 % LAB HEMETOLOGY METHOD 07/31/2024 8:37 AM [facility] Platelets 299 130 - 400 K/[facility] LAB HEMETOLOGY METHOD 07/31/2024 8:37 AM [facility] MPV 10.4 7.0 - 11.0 FL LAB HEMETOLOGY METHOD 07/31/2024 8:37 AM [facility] NRBC 0.0 <1.0 % LAB HEMETOLOGY METHOD 07/31/2024 8:37 AM [facility] NRBC Absolute 0.00 <0.10 K/[facility] LAB HEMETOLOGY METHOD 07/31/2024 8:37 AM [facility] Neutrophils Relative 59.5 % LAB HEMETOLOGY METHOD 07/31/2024 8:37 AM [facility] Lymphocytes Relative 25.3 % LAB HEMETOLOGY METHOD 07/31/2024 8:37 AM [facility] Monocytes Relative 11.8 % LAB HEMETOLOGY METHOD 07/31/2024 8:37 AM [facility] Eosinophils Relative 1.7 % LAB HEMETOLOGY METHOD 07/31/2024 8:37 AM [facility] Basophils Relative 0.6 % LAB HEMETOLOGY METHOD 07/31/2024 8:37 AM [facility] Immature Granulocytes Relative 1.1 % LAB HEMETOLOGY METHOD 07/31/2024 8:37 AM [facility] Neutrophils Absolute 2.82 1.50 - 7.00 K/mcL LAB HEMETOLOGY METHOD 07/31/2024 8:37 AM [facility] Lymphocytes Absolute 1.20 1.00 - 5.00 K/mcL LAB HEMETOLOGY METHOD 07/31/2024 8:37 AM [facility] Monocytes Absolute 0.56 0.20 - 1.00 K/mcL LAB HEMETOLOGY METHOD 07/31/2024 8:37 AM [facility] Eosinophils Absolute 0.08 0.00 - 0.50 K/mcL LAB HEMETOLOGY METHOD 07/31/2024 8:37 AM [facility] Basophils Absolute 0.03 0.00 - 0.20 K/mcL LAB HEMETOLOGY METHOD 07/31/2024 8:37 AM [facility] Immature Granulocytes Absolute 0.05(H) 0.00 - 0.03 K/mcL LAB HEMETOLOGY METHOD 07/31/2024 8:37 AM [facility] Blood Venous blood specimen / Unknown Venipuncture / Unknown 07/31/2024 4:39 AM EST 07/31/2024 7:14 AM EST us Brian Avalos MD LAB BLOOD ORDERABLES Final Res ult [facility] [address] [place] [address], [place] [phone] * (ABNORMAL) Basic metabolic panel (07/31/2024 4:39 AM EST) Sodium 141 133 - 145 mmol/L LAB CHEMISTRY METHOD 07/31/2024 8:55 AM EST [facility] Potassium 4.4 3.5 - 5.5 mmol/L LAB CHEMISTRY METHOD 07/31/2024 8:55 AM [facility] Chloride 107 96 - 110 mmol/L LAB CHEMISTRY METHOD 07/31/2024 8:55 AM [facility] CO2 30 21 - 32 mmol/L LAB CHEMISTRY METHOD 07/31/2024 8:55 AM [facility] Anion Gap 4 3 - 11 LAB CHEMISTRY METHOD 07/31/2024 8:55 AM [facility] Glucose 82 70 - 100 mg/dL LAB CHEMISTRY METHOD 07/31/2024 8:55 AM [facility] BUN 20 5 - 25 mg/dL LAB CHEMISTRY METHOD 07/31/2024 8:55 AM [facility] Creatinine 0.92 0.50 - 1.10 mg/dL LAB CHEMISTRY METHOD 07/31/2024 8:55 AM [facility] eGFR 64 >=60 mL/min/1. 73m2 LAB CHEMISTRY METHOD 07/31/2024 8:55 AM [facility] Comment:Calculation based on the Chronic Kidney Disease Epidemiology Collaboration (CKD-EPI) equation refit without adjustment for race. BUN/Creatinine Ratio 21.7 LAB CHEMISTRY METHOD 07/31/2024 8:55 AM [facility] Calcium 8.4(L) 8.5 - 10.5 mg/dL LAB CHEMISTRY METHOD 07/31/2024 8:55 AM EST [facility] Blood Venous blood specimen / Unknown Venipuncture / Unknown 07/31/2024 4:39 AM EST 07/31/2024 7:14 AM EST us Brian Avalos MD LAB BLOOD ORDERABLES Final Res ult [facility] [address] [place] [address], documented in this encounter Visit Diagnoses Diagnosis Encounter for other general examination documented in this encounter Care Teams Inspector Tool Relationship Specialty Start Date End Date Judy Mack MD [address] [facility] [address] [place] [address] PCP - General Internal Medicine 06/25/17 documented as of this encounter
--- OUTSIDE RECORDS SUMMARY | 2025-06-18 10:00 | XMS_ITS | Encounter Summary ---
Author Organization [facility] Address [address] [place] [address] Care Team Providers Care Welding Pantograph Operator Name Role Phone Judy Mack MD Primary Care Provider [phone]- [phone] Encounter Details Date Type Department Care Team (Late st Contact Info) Description 07/29/2024 Lab Requisition [facility] - Main Lab [address] [place] [address] Brian Avalos MD [address] [place] [id number] Other specified arthritis, unspecified site Social History [...] AM EST) WBC 5.3 4.8 - 10.8 K/[facility] LAB HEMETOLOGY METHOD 07/29/2024 9:24 AM [facility] LAB RBC 2.90(L) 3.80 - 4.80 M/mcL LAB HEMETOLOGY METHOD 07/29/2024 9:24 AM [facility] LAB Hemoglobin 9.2(L) 11.5 - 16.0 g/dL LAB HEMETOLOGY METHOD 07/29/2024 9:24 AM [facility] LAB Hematocrit 29.5(L) 35.0 - 47.0 % LAB HEMETOLOGY METHOD 07/29/2024 9:24 AM [facility] LAB MCV 100.7(H) 79.0 - 98.0 FL LAB HEMETOLOGY METHOD 07/29/2024 9:24 AM [facility] LAB MCH 31.4 27.0 - 32.0 pcg LAB HEMETOLOGY METHOD 07/29/2024 9:24 AM [facility] LAB MCHC 31.2(L) 32.0 - 37.0 g/dL LAB HEMETOLOGY METHOD 07/29/2024 9:24 AM [facility] LAB RDW 14.3 11.0 - 15.0 % LAB HEMETOLOGY METHOD 07/29/2024 9:24 AM [facility] LAB Platelets 226 130 - 400 K/mcL LAB HEMETOLOGY METHOD 07/29/2024 9:24 AM [facility] LAB MPV 10.7 7.0 - 11.0 FL LAB HEMETOLOGY METHOD 07/29/2024 9:24 AM [facility] LAB NRBC 0.0 <1.0 % LAB HEMETOLOGY METHOD 07/29/2024 9:24 AM [facility] LAB NRBC Absolute 0.00 <0.10 K/mcL LAB HEMETOLOGY METHOD 07/29/2024 9:24 AM [facility] LAB Blood Venous blood specimen / Unknown Venipuncture / Unknown 07/29/2024 5:32 AM EST 07/29/2024 8:28 AM EST us Brian Avalos MD LAB BLOOD ORDERABLES Final Res ult [facility] LAB [address] [place] [address], [place] [phone] * (ABNORMAL) Comprehensive metabolic panel (07/29/2024 5:32 AM EST) Sodium 141 133 - 145 mmol/L LAB CHEMISTRY METHOD 07/29/2024 10:01 AM [facility] LAB Potassium 4.2 3.5 - 5.5 mmol/L LAB CHEMISTRY METHOD 07/29/2024 10:01 AM [facility] LAB Chloride 104 96 - 110 mmol/L LAB CHEMISTRY METHOD 07/29/2024 10:01 AM [facility] LAB CO2 31 21 - 32 mmol/L LAB CHEMISTRY METHOD 07/29/2024 10:01 AM [facility] LAB Anion Gap 6 3 - 11 LAB CHEMISTRY METHOD 07/29/2024 10:01 AM [facility] LAB Glucose 91 70 - 100 mg/dL LAB CHEMISTRY METHOD 07/29/2024 10:01 AM [facility] LAB BUN 22 5 - 25 mg/dL LAB CHEMISTRY METHOD 07/29/2024 10:01 AM [facility] LAB Creatinine 0.87 0.50 - 1.10 mg/dL LAB CHEMISTRY METHOD 07/29/2024 10:01 AM [facility] LAB eGFR 69 >=60 mL/min/1. 73m2 LAB CHEMISTRY METHOD 07/29/2024 10:01 AM [facility] LAB Comment:Calculation based on the Chronic Kidney Disease Epidemiology Collaboration (CKD-EPI) equation refit without adjustment for race. BUN/Creatinine Ratio 25.3 LAB CHEMISTRY METHOD 07/29/2024 10:01 AM [facility] LAB Calcium 8.8 8.5 - 10.5 mg/dL LAB CHEMISTRY METHOD 07/29/2024 10:01 AM [facility] LAB AST (SGOT) 18 10 - 42 unit/L LAB CHEMISTRY METHOD 07/29/2024 10:01 AM [facility] LAB ALT (SGPT) 14 10 - 60 unit/L LAB CHEMISTRY METHOD 07/29/2024 10:01 AM [facility] LAB Alkaline Phosphatase 59 42 - 121 unit/L LAB CHEMISTRY METHOD 07/29/2024 10:01 AM [facility] LAB Total Protein 5.2(L) 6.0 - 8.0 g/dL LAB CHEMISTRY METHOD 07/29/2024 10:01 AM [facility] LAB Albumin 2.3(L) 3.2 - 5.0 g/dL LAB CHEMISTRY METHOD 07/29/2024 10:01 AM [facility] LAB Total Bilirubin 0.5 0.0 - 1.4 mg/dL LAB CHEMISTRY METHOD 07/29/2024 10:01 AM [facility] LAB Blood Venous blood specimen / Unknown Venipuncture / Unknown 07/29/2024 5:32 AM EST 07/29/2024 8:28 AM EST us Brian Avalos MD LAB BLOOD ORDERABLES Final Res ult [facility] LAB [address] [place] [address], documented in this encounter Visit Diagnoses Diagnosis Other specified arthritis, unspecified site documented in this encounter Care Teams Welding Pantograph Operator Relationship Specialty Start Date End Date Judy Mack MD [address] [phone] PCP - General Internal Medicine 06/25/17 documented as of this encounter
--- OUTSIDE RECORDS SUMMARY | 2025-06-18 10:00 | XMS_ITS | Encounter Summary ---
Author Organization [facility] Address [address] [place] [address] Care Team Providers Care Placement Coordinator Name Role Phone Judy Mack MD Primary Care Provider [phone]- [phone] Encounter Details Date Type Department Care Team (Late st Contact Info) Description 07/23/2024 Lab Requisition [facility] - Main Lab [address] [facility] [place] [phone] Brian Avalos MD [address] [place] [address] Pain in right knee Social History Tobacco [...] knee documented in this encounter Care Teams Placement Coordinator Relationship Specialty Start Date End Date Judy Mack MD [address] [facility] [address] [place] [phone] PCP - General Internal Medicine 06/25/17 documented as of this encounter
--- OUTSIDE RECORDS SUMMARY | 2025-06-18 10:00 | XMS_ITS | Clinical Summary ---
Author Organization [address] Address [address] [place] [address] Phone Care Team Providers Care Trestle Builder Name Role Phone Judy Mack MD Primary Care Provider Social History Tobacco Use Types Packs/Day Years Used Date Smoking Tobacco: Never Assessed Comments Unknown Sex and Gender Information Value Date Recorded Sex Assigned at Not on file Legal Sex Female 9:45 PM EST Gender Identity Not on file Sexual Orientation Not on file Plan of Treatment Health Maintenance Due Date Last Done Comments Depression Screening 09/09/2024 COVID-19 Vaccine (3 - season) 2025 11/24/2020, 11/03/2020 Influenza Vaccine (#1) 2025 , 08/09/2022, 07/04/2022, Additional history exists Pneumococcal Vaccine: 50+ Years [...] on patient's age to complete this topic Care Teams Trestle Builder Relationship Specialty Start Date End Date Judy Mack MD [facility] [address] [phone] PCP - General Internal Medicine 06/25/17
--- OUTSIDE RECORDS SUMMARY | 2025-06-18 10:00 | XMS_ITS | Encounter Summary ---
Author Organization [facility] Address [address] [place] [address] Care Team Providers Care Senior Human Resources Representative Name Role Phone Judy Mack MD Primary Care Provider Encounter Details Date Type Department Care Team (Late st Contact Info) Description 07/23/2024 Lab Requisition [facility] - Main Lab [address] [facility] [place] [address] Brian Avalos MD [address] [place] [phone] Pain in right knee Social History Tobacco [...] CBC auto differential (07/23/2024 7:18 AM EST) [facility] WBC 7.5 4.8 - 10.8 K/mcL LAB HEMETOLOGY METHOD 07/23/2024 9:03 AM [facility] LAB RBC 3.40(L) 3.80 - 4.80 M/mcL LAB HEMETOLOGY METHOD 07/23/2024 9:03 AM [facility] LAB Hemoglobin 11.0(L) 11.5 - 16.0 g/dL LAB HEMETOLOGY METHOD 07/23/2024 9:03 AM [facility] LAB Hematocrit 34.0(L) 35.0 - 47.0 % LAB HEMETOLOGY METHOD 07/23/2024 9:03 AM [facility] LAB MCV 99.4(H) 79.0 - 98.0 FL LAB HEMETOLOGY METHOD 07/23/2024 9:03 AM [facility] LAB MCH 32.2(H) 27.0 - 32.0 pcg LAB HEMETOLOGY METHOD 07/23/2024 9:03 AM [facility] LAB MCHC 32.4 32.0 - 37.0 g/dL LAB HEMETOLOGY METHOD 07/23/2024 9:03 AM [facility] LAB RDW 13.6 11.0 - 15.0 % LAB HEMETOLOGY METHOD 07/23/2024 9:03 AM [facility] LAB Platelets 185 130 - 400 K/mcL LAB HEMETOLOGY METHOD 07/23/2024 9:03 AM [facility] LAB MPV 10.4 7.0 - 11.0 FL LAB HEMETOLOGY METHOD 07/23/2024 9:03 AM [facility] LAB NRBC 0.0 <1.0 % LAB HEMETOLOGY METHOD 07/23/2024 9:03 AM [facility] LAB NRBC Absolute 0.00 <0.10 K/mcL LAB HEMETOLOGY METHOD 07/23/2024 9:03 AM [facility] LAB Neutrophils Relative 76.7 % LAB HEMETOLOGY METHOD 07/23/2024 9:03 AM [facility] LAB Lymphocytes Relative 10.0 % LAB HEMETOLOGY METHOD 07/23/2024 9:03 AM [facility] LAB Monocytes Relative 11.9 % LAB HEMETOLOGY METHOD 07/23/2024 9:03 AM [facility] LAB Eosinophils Relative 0.4 % LAB HEMETOLOGY METHOD 07/23/2024 9:03 AM [facility] LAB Basophils Relative 0.3 % LAB HEMETOLOGY METHOD 07/23/2024 9:03 AM [facility] LAB Immature Granulocytes Relative 0.7 % LAB HEMETOLOGY METHOD 07/23/2024 9:03 AM [facility] LAB Neutrophils Absolute 5.76 1.50 - 7.00 K/mcL LAB HEMETOLOGY METHOD 07/23/2024 9:03 AM [facility] LAB Lymphocytes Absolute 0.75(L) 1.00 - 5.00 K/mcL LAB HEMETOLOGY METHOD 07/23/2024 9:03 AM [facility] LAB Monocytes Absolute 0.89 0.20 - 1.00 K/mcL LAB HEMETOLOGY METHOD 07/23/2024 9:03 AM [facility] LAB Eosinophils Absolute 0.03 0.00 - 0.50 K/mcL LAB HEMETOLOGY METHOD 07/23/2024 9:03 AM [facility] LAB Basophils Absolute 0.02 0.00 - 0.20 K/mcL LAB HEMETOLOGY METHOD 07/23/2024 9:03 AM [facility] LAB Immature Granulocytes Absolute 0.05(H) 0.00 - 0.03 K/mcL LAB HEMETOLOGY METHOD 07/23/2024 9:03 AM [facility] LAB Blood Venous blood specimen / Unknown Venipuncture / Unknown 07/23/2024 7:18 AM EST 07/23/2024 8:08 AM EST Brian Avalos MD LAB BLOOD ORDERABLES Final Res ult [facility] [address] [place] [address], [place] [phone] * Magnesium (07/23/2024 7:18 AM EST) Pathologist [facility] Magnesium 2.1 1.9 - 2.6 mg/dL LAB CHEMISTRY METHOD 07/23/2024 9:38 AM EST [facility] Blood Venous blood specimen / Unknown Venipuncture / Unknown 07/23/2024 7:18 AM EST 07/23/2024 8:08 AM EST Brian Avalos MD LAB BLOOD ORDERABLES Final Res ult Performing Organization Address City/[facility]/ZIP Co de Phone Number [facility] [address] [place] [address], [place] [phone] * (ABNORMAL) Comprehensive metabolic panel (07/23/2024 7:18 AM EST) [facility] Sodium 136 133 - 145 mmol/L LAB CHEMISTRY METHOD 07/23/2024 9:38 AM [facility] LAB Potassium 4.3 3.5 - 5.5 mmol/L LAB CHEMISTRY METHOD 07/23/2024 9:38 AM [facility] LAB Chloride 103 96 - 110 mmol/L LAB CHEMISTRY METHOD 07/23/2024 9:38 AM EST [facility] LAB CO2 28 21 - 32 mmol/L LAB CHEMISTRY METHOD 07/23/2024 9:38 AM [facility] LAB Anion Gap 5 3 - 11 LAB CHEMISTRY METHOD 07/23/2024 9:38 AM EST [facility] Glucose 92 70 - 100 mg/dL LAB CHEMISTRY METHOD 07/23/2024 9:38 AM [facility] LAB BUN 14 5 - 25 mg/dL LAB CHEMISTRY METHOD 07/23/2024 9:38 AM [facility] LAB Creatinine 0.96 0.50 - 1.10 mg/dL LAB CHEMISTRY METHOD 07/23/2024 9:38 AM [facility] LAB eGFR 61 >=60 mL/min/1. 73m2 LAB CHEMISTRY METHOD 07/23/2024 9:38 AM [facility] LAB Comment:Calculation based on the Chronic Kidney Disease Epidemiology Collaboration (CKD-EPI) equation refit without adjustment for race. BUN/Creatinine Ratio 14.6 LAB CHEMISTRY METHOD 07/23/2024 9:38 AM [facility] LAB Calcium 7.8(L) 8.5 - 10.5 mg/dL LAB CHEMISTRY METHOD 07/23/2024 9:38 AM [facility] LAB AST (SGOT) 11 10 - 42 unit/L LAB CHEMISTRY METHOD 07/23/2024 9:38 AM [facility] LAB ALT (SGPT) 11 10 - 60 unit/L LAB CHEMISTRY METHOD 07/23/2024 9:38 AM [facility] LAB Alkaline Phosphatase 49 42 - 121 unit/L LAB CHEMISTRY METHOD 07/23/2024 9:38 AM [facility] LAB Total Protein 5.3(L) 6.0 - 8.0 g/dL LAB CHEMISTRY METHOD 07/23/2024 9:38 AM [facility] LAB Albumin 2.5(L) 3.2 - 5.0 g/dL LAB CHEMISTRY METHOD 07/23/2024 9:38 AM [facility] Total Bilirubin 0.4 0.0 - 1.4 mg/dL LAB CHEMISTRY METHOD 07/23/2024 9:38 AM [facility] LAB Blood Venous blood specimen / Unknown Venipuncture / Unknown 07/23/2024 7:18 AM EST 07/23/2024 8:08 AM EST us Brian Avalos MD LAB BLOOD ORDERABLES Final Res ult [facility] [address] [place] [address], documented in this encounter Visit Diagnoses Diagnosis Pain in right knee documented in this encounter Care Teams Senior Human Resources Representative Relationship Specialty Start Date End Date Judy Mack MD [address] [phone] PCP - General Internal Medicine 06/25/17 documented as of this encounter
[2025-06-18 13:23] LABS: Alanine Aminotransferase 13 U/L (0-31); Albumin Level 4.1 g/dL (3.5-5.0); Alkaline Phosphatase 63 U/L (39-117); Anion Gap 9 (12-20); Aspartate Amino Transferase 22 U/L (5-31); Blood Urea Nitrogen 14 mg/dL (9-16); Calcium 8.8 mg/dL (8.4-10.2); Carbon Dioxide 31 mmol/L (22-29); Chloride 107 mmol/L (96-108); Cholesterol 291 mg/dL (<200); Estimated Glomerular Filt Rate 47; HDL Cholesterol 80 mg/dL (>40); Potassium 4.3 mmol/L (3.3-5.1); Sodium 143 mmol/L (135-145); Total Protein 6.9 g/dL (6.5-8.0); Triglycerides 67 mg/dL (<150)
== END 2025-06-18 09:24 | disposition home or self-care (01) ==
LOC: HO.HMGCLDS 09:23
PROVIDERS: PCP Internal Medicine; Visit Provider Internal Medicine
DX: G50.0 Trigeminal neuralgia (principal); N18.30 Chronic kidney disease, stage 3 unspecified; E61.1 Iron deficiency; C90.00 Multiple myeloma not having achieved remission; E78.5 Hyperlipidemia, unspecified
CPT/HCPCS: 36415; 80053; 80061

== ENCOUNTER 2025-07-06 11:36 | Outpatient (AMB) | payer MEDICARE, OTHER, SELFPAY ==
--- NOTE | 2025-07-06 11:58 | A.OFFPC_ITS ---
Vital Signs 07/06/25 11:59 Height 5 ft 5 in Weight 141 lb BMI 23.5 BP 140/88 H Blood Pressure Location Lt brachial Position Sitting Respiration 16 Pulse 63 Pulse Source Pulse Oximeter Temp 98.4 F Temp Source Oral Pulse Oximetry (%) 96 Oxygen Delivery Method Room Air Intake Visit Reasons: Cold Intake Note: Pt is here today for a sick visit. Pt c/o headaches, runny nose, and cough x1wk . Disease Control Inspector Required: No Accompanied by: Self / Same As Patient Allergies mirtazapine Adverse Reaction (Intermediate, Verified 07/06/25 12:07) Abdominal Pain Medication List - Last Reconciled 07/06/25 by Chen Pop MD acetaminophen 650 mg (2 x 325 mg) PO Q6H PRN 30 days acyclovir 400 mg PO BID calcium acetate calcium 1200 mg vitamin d3 1000 units cane As directed docusate sodium 100 mg PO BID dorzolamide-timolol 22.3-6.8 mg/mL ophthalmic (eye) duloxetine 60 mg PO DAILY fluconazole 150 mg PO Q3D 2 doses fluticasone propionate 50 mcg/actuation 1 spray intranasal DAILY gabapentin 600 mg PO BID ixazomib (Ninlaro) mg PO lisinopril 2.5 mg PO DAILY mecobalamin (vitamin B12) PO montelukast (Singulair) 10 mg PO BEDTIME pantoprazole 40 mg PO DAILY [Powerlift reclinder slim width and depth ] [Raised toilet seat duration: lifetime] ropinirole 6 mg (3 x 2 mg) PO BEDTIME sennosides (senna) 17.2 mg PO BID [SHOWER CHAIR As directed] trazodone 1-2 tabl orally bedtime; walker Folding Front wheeled walker Tobacco use date assessed: 07/06/25 Fall risk assessment: No Falls in past year Last assessed Fall Risk: 07/06/25 Dental Screening Dental Screen Date: 07/06/25 Did you have a dental visit in the last 12 months?: Yes Did you have a dental problem in the last 6 months where you did not have access to dental care?: No Was dental information given to patient?: Patient has dentist HPI Cold HPI Details Pt c/o runny nose, sinus pressure, productive cough with yellow sputum for 1 week. Patient denies fever chills pleurisy shortness or breath. 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 Osteoarthritis of right hip Personal history of COVID-19 Pain Slow to wake up after anesthesia Achalasia of esophagus Otitis media of right ear Cataract RLS (restless legs syndrome) Insomnia Hx of breast cancer Post-nasal drip Multiple myeloma Ankle fracture, left GERD (gastroesophageal reflux disease) Surgical History H/O total knee replacement History of esophagogastroduodenoscopy (EGD) History of right hip replacement (09/11/23) Hx of bilateral cataract extraction History of lumpectomy of right breast History of History of surgery on left wrist History of colonoscopy H/O left knee surgery Status post ORIF of fracture of ankle (~2020) Family History Father Lung cancer Mother Diabetes Hypertension Heart attack Other Mental health disorder Social History Household Members: None Household Members Other:: , 2 sons, Housing: House Are you a primary respiratory care instructor to a significant other at home: No Do you presently have visiting nurse or other home services: No Comment: pt knee gave out denies dizziness n/v prior or after fall c/o buttock pain Patient Tobacco Use Status: Former Tobacco user Tobacco use type: Cigarette Years Smoked: 2 e-Cigarette/Vaping Use: Never Used Second Hand Smoke Exposure: No service: No Current occupational status: retired Cognitive needs: No Hearing needs: No Vision needs: Yes Questionnaire Thrive Questionnaire Date Thrive assessed: 11/23/24 I am a: Patient What is your living situation today?: I have a steady place to live Within the past 12 months, did the food you bought not last and you didn't have the money to get more?: Often true Within the past 12 months, did you worry whether your food would run out before you got money to buy more?: Often true Do you have trouble paying for medicines?: No Do you have trouble getting transportation to medical appointments?: No Do you have trouble paying your heating and electricity bill?: No Do you have trouble taking care of your child, family member or friend?: No Do you have trouble with day-to-day activities such as bathing, preparing meals, shopping, managing finances, etc.?: Yes Are you currently unemployed and looking for a job?: No Are you interested in more education?: No Please select the resources that you would like help with: None Currently or been in a relationship where the following occur: No concerns reported THRIVE Score: 2 ROCK-7 AMB Questionnaire ROCK-7 Date ROCK - 7 assessed: 03/03/25 Source: Developed by Drs. Talha Steve, Halina Pena, Levar Earl and colleagues, with an educational ramón from [employer]. Review of Systems Const All systems reviewed & are unremarkable except as noted in HPI and below ENT Reports no additional complaints Card Reports no additional complaints Resp Reports no additional complaints GI Reports no additional complaints Physical exam (Primary Care) Vital Signs: Last Vital Signs Temp 98.4 F 07/06/25 11:59 Pulse 63 07/06/25 11:59 Resp 16 07/06/25 11:59 BP 140/88 H 07/06/25 11:59 Pulse Ox 96 07/06/25 11:59 Oxygen Delivery Method Room Air 07/06/25 11:59 BMI result Body Mass Index 23.5 Tobacco/Smoking Status: Tobacco use Status Tobacco use date assessed 07/06/25 07/06/25 12:10 Patient Tobacco Use Status Former Tobacco user 07/06/25 11:59 Tobacco use type Cigarette 07/06/25 11:59 e-Cigarette/Vaping Use Never Used 07/06/25 11:59 Thrive Assessment: Date of Thrive Assessment Date Thrive assessed 11/23/24 07/06/25 11:59 Currently or been in a relationship where the following occur: No concerns reported Const General: no acute distress HENMT Head: Yes normal to inspection Ears: TM's normal bilaterally General nose exam: Abnormal mucous membranes and turbinates present erythematous Face and sinus: Yes sinus tenderness Throat: Yes postnasal drainage Neck Neck: Yes supple Resp Effort & Inspection: normal respiratory effort Auscultation: rhonchi and diminished lung sounds Cardio Rhythm: regular rhythm Heart sounds: S1 normal heart sound present and S2 normal heart sound present Coding Level of Care Code Est Pt Level 3 (01636) Diagnoses Sinusitis J32.9 Assessment & Plan Assessment & Plan (1) Sinusitis: Code(s): J32.9 - Chronic sinusitis, unspecified Category: Medical Plan: Phuc and Pamella Coronel as prescribed and supportive care discussed with the patient Medications: New azithromycin For 250 mg dose pack: take 500 mg today (day 1), then 250 mg for 4 days (days 2-5) PO 6 tabs 0RF benzonatate 100 mg PO TID 30 caps 0RF
[2025-07-06 11:59] VITALS: BP 140/88; PULSE 63; RESP 16; TEMP 36.9; O2SAT 96; BMI 23.5
--- OUTSIDE RECORDS SUMMARY | 2025-07-06 14:55 | XMS_ITS | Encounter Summary ---
Author Organization [facility] Address [address] [place] [address] Care Team Providers Care Geography Professor Name Role Phone Judy Mack MD Primary Care Provider [phone] Encounter Details Date Type Department Care Team (Late st Contact Info) Description 07/31/2024 Lab Requisition [facility] - Main Lab [address] [facility] [place] [address] Brian Avalos MD [address] [place] [address] Encounter for other general examination Social History [...] AM EST) WBC 4.7(L) 4.8 - 10.8 K/[facility] LAB HEMETOLOGY METHOD 07/31/2024 8:37 AM [facility] LAB RBC 2.90(L) 3.80 - 4.80 M/[facility] LAB HEMETOLOGY METHOD 07/31/2024 8:37 AM [facility] LAB Hemoglobin 9.0(L) 11.5 - 16.0 g/dL LAB HEMETOLOGY METHOD 07/31/2024 8:37 AM [facility] LAB Hematocrit 29.1(L) 35.0 - 47.0 % LAB HEMETOLOGY METHOD 07/31/2024 8:37 AM [facility] LAB MCV 101.4(H) 79.0 - 98.0 FL LAB HEMETOLOGY METHOD 07/31/2024 8:37 AM [facility] LAB MCH 31.4 27.0 - 32.0 pcg LAB HEMETOLOGY METHOD 07/31/2024 8:37 AM [facility] LAB MCHC 30.9(L) 32.0 - 37.0 g/dL LAB HEMETOLOGY METHOD 07/31/2024 8:37 AM [facility] LAB RDW 14.1 11.0 - 15.0 % LAB HEMETOLOGY METHOD 07/31/2024 8:37 AM [facility] LAB Platelets 299 130 - 400 K/[facility] LAB HEMETOLOGY METHOD 07/31/2024 8:37 AM [facility] LAB MPV 10.4 7.0 - 11.0 FL LAB HEMETOLOGY METHOD 07/31/2024 8:37 AM [facility] LAB NRBC 0.0 <1.0 % LAB HEMETOLOGY METHOD 07/31/2024 8:37 AM [facility] LAB NRBC Absolute 0.00 <0.10 K/[facility] LAB HEMETOLOGY METHOD 07/31/2024 8:37 AM [facility] LAB Neutrophils Relative 59.5 % LAB HEMETOLOGY METHOD 07/31/2024 8:37 AM [facility] LAB Lymphocytes Relative 25.3 % LAB HEMETOLOGY METHOD 07/31/2024 8:37 AM [facility] LAB Monocytes Relative 11.8 % LAB HEMETOLOGY METHOD 07/31/2024 8:37 AM [facility] LAB Eosinophils Relative 1.7 % LAB HEMETOLOGY METHOD 07/31/2024 8:37 AM [facility] LAB Basophils Relative 0.6 % LAB HEMETOLOGY METHOD 07/31/2024 8:37 AM [facility] LAB Immature Granulocytes Relative 1.1 % LAB HEMETOLOGY METHOD 07/31/2024 8:37 AM [facility] LAB Neutrophils Absolute 2.82 1.50 - 7.00 K/mcL LAB HEMETOLOGY METHOD 07/31/2024 8:37 AM [facility] LAB Lymphocytes Absolute 1.20 1.00 - 5.00 K/mcL LAB HEMETOLOGY METHOD 07/31/2024 8:37 AM [facility] LAB Monocytes Absolute 0.56 0.20 - 1.00 K/mcL LAB HEMETOLOGY METHOD 07/31/2024 8:37 AM [facility] LAB Eosinophils Absolute 0.08 0.00 - 0.50 K/mcL LAB HEMETOLOGY METHOD 07/31/2024 8:37 AM [facility] LAB Basophils Absolute 0.03 0.00 - 0.20 K/mcL LAB HEMETOLOGY METHOD 07/31/2024 8:37 AM [facility] LAB Immature Granulocytes Absolute 0.05(H) 0.00 - 0.03 K/mcL LAB HEMETOLOGY METHOD 07/31/2024 8:37 AM [facility] LAB Blood Venous blood specimen / Unknown Venipuncture / Unknown 07/31/2024 4:39 AM EST 07/31/2024 7:14 AM EST us Brian Avalos MD LAB BLOOD ORDERABLES Final Res ult [facility] LAB [address] [place] [address], [place] [phone] * (ABNORMAL) Basic metabolic panel (07/31/2024 4:39 AM EST) Sodium 141 133 - 145 mmol/L LAB CHEMISTRY METHOD 07/31/2024 8:55 AM EST [facility] LAB Potassium 4.4 3.5 - [...] [facility] LAB BUN 20 5 [...] LAB CHEMISTRY METHOD 07/31/2024 8:55 AM EST [facility] LAB Blood Venous blood specimen / Unknown Venipuncture / Unknown 07/31/2024 4:39 AM EST 07/31/2024 7:14 AM EST us Brian Avalos MD LAB BLOOD ORDERABLES Final Res ult [facility] LAB [address] [place] [address], documented in this encounter Visit Diagnoses Diagnosis Encounter for other general examination documented in this encounter Care Teams Geography Professor Relationship Specialty Start Date End Date Judy Mack MD [address] [facility] [address] [place] [address] PCP - General Internal Medicine 06/25/17 documented as of this encounter
--- OUTSIDE RECORDS SUMMARY | 2025-07-06 14:55 | XMS_ITS | Encounter Summary ---
Author Organization [facility] Address [address] [place] [address] Care Team Providers Care Neurophysiological Technician Name Role Phone Lorraine Popanna Primary Care Provider [phone] Encounter Details Date Type Department Care Team (Late st Contact Info) Description 04/02/2025 [employer] Message [facility] Surgery [address] [place] [address] [employer], [facility] [place] [address] Questionnaire due soon Social History [...] the money to buy more. Never true 02/09/20 25 Within the past 12 months, t he food you bought just didn't last and you didn't have money to get more. Never true 02/08/2025 Comments No Sex and Gender Information Value Date Recorded Sex Assigned at Female 05/01/2024 11:40 AM EDT Legal Sex Female 5:08 AM EDT Gender Identity Female 05/01/2024 11:40 AM EDT Sexual Orientation Straight 07/13/2024 11 :09 AM EST documented as of this encounter Plan of Treatment Not on file documented as of this encounter Goals Goal Patient Goal Type Associated Problems Recent Progress Patient-Stated? Author Autogenerat ed Goal Care Plan Autogenerated Problem No Stacey Mace RN documented as of this encounter Visit Diagnoses Not on filedocumented in this encounter Additional Health Concerns Active Problems Noted Date Diagnosed Date Autogenerated Problem 05/17/2025 documented as of this encounter Care Teams Neurophysiological Technician Relationship Specialty Start Date End Date Chen Pop [address] [place] [address] PCP - General Internal Medicine 05/01/24 documented as of this encounter
--- OUTSIDE RECORDS SUMMARY | 2025-07-06 14:55 | XMS_ITS | Encounter Summary ---
Author Organization [facility] Address [address] [place] [address] Care Team Providers Care Aquatics Manager Name Role Phone Chen Pop Primary Care Provider [phone] Encounter Details Date Type Department Care Team (Late st Contact Info) Description 01/16/2025 [employer] [place] Message [facility] Surgery [address] [place] [address] [employer], [facility] Provider [place] [address] Questionnaire due soon Social History [...] on filedocumented in this encounter Care Teams Aquatics Manager Relationship Specialty Start Date End Date Chen Pop [address] [place] [address] PCP - General Internal Medicine 05/01/24 documented as of this encounter
--- OUTSIDE RECORDS SUMMARY | 2025-07-06 14:55 | XMS_ITS | Encounter Summary ---
Author Organization [facility] Address [address] [place] [address] Care Team Providers Care Rough Rounder Machine Name Role Phone Chen Pop Primary Care Provider [phone] Encounter Details Date Type Department Care Team (Late st Contact Info) Description 10/27/2024 [employer] Message Intial Department [address] [place] [address] Mychart, Generic Provider [address] [place] [address] Questionnaire Submission Social History Tobacco Use [...] on filedocumented in this encounter Care Teams Rough Rounder Machine Relationship Specialty Start Date End Date Chen Pop [address] [place], [place] [phone] PCP - General Internal Medicine 05/01/24 documented as of this encounter
--- OUTSIDE RECORDS SUMMARY | 2025-07-06 14:55 | XMS_ITS | Encounter Summary ---
Author Organization [facility] Address [address] [place] [address] Care Team Providers Care Car Audio Installer Name Role Phone Chen Pop Primary Care Provider [phone] Encounter Details Date Type Department Care Team (Late st Contact Info) Description 10/27/2024 [employer] Message Intial Department [address] [place] [address] Mychart, Generic Provider [address] [place] [address] Questionnaire Submission Social History Tobacco Use [...] on filedocumented in this encounter Care Teams Car Audio Installer Relationship Specialty Start Date End Date Chen Pop [address] [place], [place] [phone] PCP - General Internal Medicine 05/01/24 documented as of this encounter
--- OUTSIDE RECORDS SUMMARY | 2025-07-06 14:55 | XMS_ITS | Encounter Summary ---
Author Organization [facility] Address [address] [place] [address] Care Team Providers Care Cannon Pinion Adjuster Name Role Phone Chen Pop Primary Care Provider [phone] Encounter Details Date Type Department Care Team (Late st Contact Info) Description 03/25/2025 [employer] Message [facility] Surgery [address] [place] [address] [employer], [facility] Provider [facility] [place] [address] Questionnaire due soon Social History [...] on filedocumented in this encounter Care Teams Cannon Pinion Adjuster Relationship Specialty Start Date End Date Chen Pop [address] [place] [address] PCP - General Internal Medicine 05/01/24 documented as of this encounter
--- OUTSIDE RECORDS SUMMARY | 2025-07-06 14:55 | XMS_ITS | Encounter Summary ---
Author Organization [facility] Address [address] [place] [address] Care Team Providers Care Cad Application Support Specialist Name Role Phone Lorraine Popanna Primary Care Provider [phone] Encounter Details Date Type Department Care Team (Late st Contact Info) Description 05/08/2025 [employer] Message [facility] Surgery [address] [place] [address] [employer], [facility] Provider [facility] [place] [address] Questionnaire due soon Social History [...] documented as of this encounter Care Teams Cad Application Support Specialist Relationship Specialty Start Date End Date Chen Pop [address] [place] [address] PCP - General Internal Medicine 05/01/24 documented as of this encounter
--- OUTSIDE RECORDS SUMMARY | 2025-07-06 14:55 | XMS_ITS | Encounter Summary ---
Author Organization [facility] Address [address] [place] [address] Care Team Providers Care Securities Vault Supervisor Name Role Phone Chen Pop Primary Care Provider [phone] Encounter Details Date Type Department Care Team (Late st Contact Info) Description 10/26/2024 [employer] Message [facility] Surgery [address] [place] [address] [employer]), [facility] Provider Pending [facility] [place] [address] Questionnaire due soon Social History [...] on filedocumented in this encounter Care Teams Securities Vault Supervisor Relationship Specialty Start Date End Date Chen Pop [address] [place] [address] PCP - General Internal Medicine 05/01/24 documented as of this encounter
--- OUTSIDE RECORDS SUMMARY | 2025-07-06 14:55 | XMS_ITS | Encounter Summary ---
Author Organization [facility] Address [address] [place] [address] Care Team Providers Care Survey Director Name Role Phone Lorraine Popanna Primary Care Provider [phone] Encounter Details Date Type Department Care Team (Late st Contact Info) Description 05/24/2025 [employer] Message [facility] Surgery [address] [place] [address] [employer], [facility] [place] [address] Questionnaire due soon Social History [...] documented as of this encounter Care Teams Survey Director Relationship Specialty Start Date End Date Chen Pop [address] [place] [address] PCP - General Internal Medicine 05/01/24 documented as of this encounter
--- OUTSIDE RECORDS SUMMARY | 2025-07-06 14:55 | XMS_ITS | Encounter Summary ---
Author Organization [facility] Address [address] [place] [address] Care Team Providers Care Kitchen Utility Associate Name Role Phone Judy Mack MD Primary Care Provider [phone] Encounter Details Date Type Department Care Team (Late st Contact Info) Description 07/23/[address] [facility] - Main Lab [address] [facility] [place] [address] Brian Avalos MD [address] [place] [address] Pain in right knee Social History Tobacco [...] knee documented in this encounter Care Teams Kitchen Utility Associate Relationship Specialty Start Date End Date Judy Mack MD [address] [facility] [address] [place] [address] PCP - General Internal Medicine 06/25/17 documented as of this encounter
--- OUTSIDE RECORDS SUMMARY | 2025-07-06 14:55 | XMS_ITS | Encounter Summary ---
Author Organization [facility] Address [address] [place] [address] Care Team Providers Care Trim Technician Name Role Phone Judy Mack MD Primary Care Provider [phone] Encounter Details Date Type Department Care Team (Late st Contact Info) Description 07/29/2024 Lab Requisition [facility] - Main Lab [address] [place] [address] Brian Avalos MD [address] [place] [address] Other specified arthritis, unspecified site Social History [...] AM EST) WBC 5.3 4.8 - 10.8 K/[facility] LAB HEMETOLOGY METHOD 07/29/2024 9:24 AM [facility] LAB RBC 2.90(L) 3.80 - 4.80 M/mcL LAB HEMETOLOGY METHOD 07/29/2024 9:24 AM [facility] LAB Hemoglobin 9.2(L) 11.5 - 16.0 g/dL LAB HEMETOLOGY METHOD 07/29/2024 9:24 AM [facility] LAB Hematocrit 29.5(L) 35.0 - 47.0 % LAB HEMETOLOGY METHOD 07/29/2024 9:24 AM [facility] LAB MCV 100.7(H) 79.0 - 98.0 FL LAB HEMETOLOGY METHOD 07/29/2024 9:24 AM [facility] LAB MCH 31.4 27.0 - 32.0 pcg LAB HEMETOLOGY METHOD 07/29/2024 9:24 AM [facility] LAB MCHC 31.2(L) 32.0 - 37.0 g/dL LAB HEMETOLOGY METHOD 07/29/2024 9:24 AM [facility] LAB RDW 14.3 11.0 - 15.0 % LAB HEMETOLOGY METHOD 07/29/2024 9:24 AM [facility] LAB Platelets 226 130 - 400 K/mcL LAB HEMETOLOGY METHOD 07/29/2024 9:24 AM [facility] LAB MPV 10.7 7.0 - 11.0 FL LAB HEMETOLOGY METHOD 07/29/2024 9:24 AM [facility] LAB NRBC 0.0 <1.0 % LAB HEMETOLOGY METHOD 07/29/2024 9:24 AM [facility] LAB NRBC Absolute 0.00 <0.10 K/mcL LAB HEMETOLOGY METHOD 07/29/2024 9:24 AM [facility] LAB Blood Venous blood specimen / Unknown Venipuncture / Unknown 07/29/2024 5:32 AM EST 07/29/2024 8:28 AM EST us Brian Avalos MD LAB BLOOD ORDERABLES Final Res ult [facility] LAB [address] [place] [address], [place] [phone] * (ABNORMAL) Comprehensive metabolic panel (07/29/2024 5:32 AM EST) Sodium 141 133 - 145 mmol/L LAB CHEMISTRY METHOD 07/29/2024 10:01 AM [facility] LAB Potassium 4.2 3.5 - 5.5 mmol/L LAB CHEMISTRY METHOD 07/29/2024 10:01 AM [facility] LAB Chloride 104 96 - 110 mmol/L LAB CHEMISTRY METHOD 07/29/2024 10:01 AM [facility] LAB CO2 31 21 - 32 mmol/L LAB CHEMISTRY METHOD 07/29/2024 10:01 AM [facility] LAB Anion Gap 6 3 - 11 LAB CHEMISTRY METHOD 07/29/2024 10:01 AM [facility] LAB Glucose 91 70 - 100 mg/dL LAB CHEMISTRY METHOD 07/29/2024 10:01 AM [facility] LAB BUN 22 5 - 25 mg/dL LAB CHEMISTRY METHOD 07/29/2024 10:01 AM [facility] LAB Creatinine 0.87 0.50 - 1.10 mg/dL LAB CHEMISTRY METHOD 07/29/2024 10:01 AM [facility] LAB eGFR 69 >=60 mL/min/1. 73m2 LAB CHEMISTRY METHOD 07/29/2024 10:01 AM [facility] LAB Comment:Calculation based on the Chronic Kidney Disease Epidemiology Collaboration (CKD-EPI) equation refit without adjustment for race. BUN/Creatinine Ratio 25.3 LAB CHEMISTRY METHOD 07/29/2024 10:01 AM [facility] LAB Calcium 8.8 8.5 - 10.5 mg/dL LAB CHEMISTRY METHOD 07/29/2024 10:01 AM [facility] LAB AST (SGOT) 18 10 - 42 unit/L LAB CHEMISTRY METHOD 07/29/2024 10:01 AM [facility] LAB ALT (SGPT) 14 10 - 60 unit/L LAB CHEMISTRY METHOD 07/29/2024 10:01 AM [facility] LAB Alkaline Phosphatase 59 42 - 121 unit/L LAB CHEMISTRY METHOD 07/29/2024 10:01 AM [facility] LAB Total Protein 5.2(L) 6.0 - 8.0 g/dL LAB CHEMISTRY METHOD 07/29/2024 10:01 AM [facility] LAB Albumin 2.3(L) 3.2 - 5.0 g/dL LAB CHEMISTRY METHOD 07/29/2024 10:01 AM [facility] LAB Total Bilirubin 0.5 0.0 - 1.4 mg/dL LAB CHEMISTRY METHOD 07/29/2024 10:01 AM [facility] LAB Blood Venous blood specimen / Unknown Venipuncture / Unknown 07/29/2024 5:32 AM EST 07/29/2024 8:28 AM EST us Brian Avalos MD LAB BLOOD ORDERABLES Final Res ult [facility] LAB [address] [place] [address], documented in this encounter Visit Diagnoses Diagnosis Other specified arthritis, unspecified site documented in this encounter Care Teams Trim Technician Relationship Specialty Start Date End Date Judy Mack MD [address] [phone] PCP - General Internal Medicine 06/25/17 documented as of this encounter
--- OUTSIDE RECORDS SUMMARY | 2025-07-06 14:55 | XMS_ITS | Encounter Summary ---
Author Organization [facility] Address [address] [facility] [address] [place] [address] Phone Care Team Providers Care Dye Operator Name Role Phone Judy Abreu MD Primary Care Provider Tess Thomas DDS Unavailab le Bro Marino DMD Unavailable [phone] Chen Pop MD Primary Care Provider [phone] Encounter Details Date Type Department Care Team (Late st Contact Info) Description 01/02/2019 Procedure Pass [facility] PERIOP DEPT [address] [place] [address] Social History Tobacco Use Types Packs/Day Years [...] on filedocumented in this encounter Care Teams Dye Operator Relationship Specialty Start Date End Date Judy Abreu MD [facility] [address] [place], [place] [phone] PCP - General Internal Medicine 06/27/18 05/21/24 Chen Pop MD [address] [place] [id number] PCP - General Internal Medicine 05/22/24 Tess Thomas DDS [address] [place] [address] [address] [place] [address] electrical system specialist 08/06/18 Bro Marino, JENNIFER [address] [place] [address] [address] [place] [address] [email or web address] Surgeon electrical system specialist 01/21/19 documented as of this encounter Additional Source Comments The information contained in this document represents components of the legal health record. It is not the complete legal health record.[facility]
--- OUTSIDE RECORDS SUMMARY | 2025-07-06 14:55 | XMS_ITS | Encounter Summary ---
Author Organization [facility] Address [address] [place] [address] Care Team Providers Care Funeral Pre Arrangement Specialist Name Role Phone Judy Mack MD Primary Care Provider Encounter Details Date Type Department Care Team (Late st Contact Info) Description 07/23/2024 Lab Requisition [facility] - Main Lab [address] [facility] [place] [address] Brian Avalos MD [address] [place] [address] Pain in right knee Social History Tobacco [...] CBC auto differential (07/23/2024 7:18 AM EST) [facility] WBC 7.5 4.8 - 10.8 K/mcL [...] Res ult [facility] LAB [address] [place] [address], [place] [phone] * Magnesium (07/23/2024 7:18 AM EST) Pathologist [facility] Magnesium 2.1 1.9 - 2.6 mg/dL LAB CHEMISTRY METHOD 07/23/2024 9:38 AM EST [facility] LAB Blood Venous blood specimen / Unknown Venipuncture / Unknown 07/23/2024 7:18 AM EST 07/23/2024 8:08 AM EST Brian Avalos MD LAB BLOOD ORDERABLES Final Res ult Performing Organization Address City/[facility]/ZIP Co de Phone Number [facility] LAB [address] [place] [address], [place] [phone] * (ABNORMAL) Comprehensive metabolic panel (07/23/2024 7:18 AM EST) [facility] Sodium 136 133 - 145 mmol/L LAB CHEMISTRY METHOD 07/23/2024 9:38 AM [facility] LAB Potassium 4.3 3.5 - 5.5 mmol/L LAB CHEMISTRY METHOD 07/23/2024 9:38 AM [facility] LAB Chloride 103 96 - 110 mmol/L LAB CHEMISTRY METHOD 07/23/2024 9:38 AM EST [facility] LAB CO2 28 21 - 32 mmol/L LAB CHEMISTRY METHOD 07/23/2024 9:38 AM [facility] LAB Anion Gap 5 3 - 11 LAB CHEMISTRY METHOD 07/23/2024 9:38 AM EST [facility] LAB Glucose 92 70 - 100 [...] MD LAB BLOOD ORDERABLES Final Res ult [facility] [address] [place] [address], documented in this encounter Visit Diagnoses Diagnosis Pain in right knee documented in this encounter Care Teams Funeral Pre Arrangement Specialist Relationship Specialty Start Date End Date Judy Mack MD [address] [address] PCP - General Internal Medicine 06/25/17 documented as of this encounter
--- OUTSIDE RECORDS SUMMARY | 2025-07-06 14:55 | XMS_ITS | Encounter Summary ---
Author Organization [facility] Address [address] [place] [address] Care Team Providers Care Psychology Fellow Name Role Phone Chen Pop Primary Care Provider [phone] Encounter Details Date Type Department Care Team (Late st Contact Info) Description 02/01/2025 [employer] Message [facility] Surgery [address] [place] [address] [employer], [facility] Provider [address] [place] [address] Questionnaire due soon Social History Tobacco [...] on filedocumented in this encounter Care Teams Psychology Fellow Relationship Specialty Start Date End Date Chen Pop [address] [place] [address] PCP - General Internal Medicine 05/01/24 documented as of this encounter
--- OUTSIDE RECORDS SUMMARY | 2025-07-06 14:55 | XMS_ITS | Clinical Summary ---
Author Organization [address] Address [address] [place] [address] Phone Care Team Providers Care Chain Saw Driver Name Role Phone Judy Mack MD Primary [...] age to complete this topic Care Teams Chain Saw Driver Relationship Specialty Start Date End Date Judy Mack MD [facility] [address] [address] PCP - General Internal Medicine 06/25/17
--- OUTSIDE RECORDS SUMMARY | 2025-07-06 14:55 | XMS_ITS | Encounter Summary ---
Author Organization [facility] Address [address] [place] [address] Care Team Providers Care Architecture Analyst Name Role Phone Chen Pop Primary Care Provider [phone] Encounter Details Date Type Department Care Team (Late st Contact Info) Description 01/11/2025 [employer] Message Intial Department [address] [place] [address] Mychart, Generic Provider [address] [place] [address] Questionnaire Submission Social History Tobacco Use [...] on filedocumented in this encounter Care Teams Architecture Analyst Relationship Specialty Start Date End Date Chen Pop [address] [place], [place] [phone] PCP - General Internal Medicine 05/01/24 documented as of this encounter
--- OUTSIDE RECORDS SUMMARY | 2025-07-06 14:55 | XMS_ITS | Encounter Summary ---
Author Organization [facility] Address [address] [place] [address] Care Team Providers Care Green Building Architect Name Role Phone Chen Pop Primary Care Provider [phone] Encounter Details Date Type Department Care Team (Late st Contact Info) Description 10/27/2024 Zazuba Message Intial Department [address] [place] [address] Mychart, Generic Provider [address] [place] [address] Questionnaire Submission Social History Tobacco Use [...] on filedocumented in this encounter Care Teams Green Building Architect Relationship Specialty Start Date End Date Chen Pop 1960 [place], [place] [id number] PCP - General Internal Medicine 05/01/24 documented as of this encounter
--- OUTSIDE RECORDS SUMMARY | 2025-07-06 14:56 | XMS_ITS | Encounter Summary ---
Author Organization [facility] Address [address] [place] [address] Care Team Providers Care Steel Tester Name Role Phone Chen Pop Primary Care Provider [phone] Encounter Details Date Type Department Care Team (Late st Contact Info) Description 07/06/2024 [employer] Message Intial Department [address] [place] [address] 88457 Mychart, Generic Provider [address] [place] [address] 535[address] Questionnaire Submission Social History Tobacco Use [...] on filedocumented in this encounter Care Teams Steel Tester Relationship Specialty Start Date End Date Chen Pop 1960 [place], [place] [id number] PCP - General Internal Medicine 05/01/24 documented as of this encounter
--- OUTSIDE RECORDS SUMMARY | 2025-07-06 14:56 | XMS_ITS | Encounter Summary ---
Author Organization [facility] Address [address] [place] [address] Care Team Providers Care Stone Driller Helper Name Role Phone Chen Pop Primary Care Provider [phone] Encounter Details Date Type Department Care Team (Late st Contact Info) Description 07/06/2024 Eachpal Message Intial Department [address] [place] [address] 66057 Mychart, Generic Provider [address] [place] [address] 535[address] Questionnaire Submission Social History Tobacco Use [...] filedocumented in this encounter Care Teams Stone Driller Helper Relationship Specialty Start Date End Date Chen Pop 1960 [place], [place] [id number] PCP - General Internal Medicine 05/01/24 documented as of this encounter
--- OUTSIDE RECORDS SUMMARY | 2025-07-06 14:56 | XMS_ITS | Clinical Summary ---
Author Organization [facility] Address [address] [place] [address] Care Team Providers Care Auto Mechanic Apprentice Name Role Phone Chen Pop Primary Care Provider [phone] Allergies No known active allergies Medications DULoxetine [...] Take 10 mg by mouth nightly. Active ixazomib (Ninlaro) 3 mg capsule Take [...] mg by mouth once a day. Active rivaroxaban (XARELTO) 10 mg tablet Take 1 tablet (10 mg total) by mouth once a day. Do not start the ASA until you have competed this prescription 4 Active Additional Information Patient not taking.Reported on 02/08/2025 aspirin 81 mg EC tablet Take 1 tablet (81 mg total) by mouth 2 times daily after meals. 5 Active Additional Information Patient taking differently:81 mg oralDaily, Reported on 01/27/2025 cyclobenzaprine (FLEXERIL) 5 mg tablet Take 2 tablets (10 mg total) by mouth 3 times a day as needed for muscle spasms for up to 30 doses. 30 tablet 5 Active Active Problems Problem Noted Date Diagnosed Date Primary osteoarthritis of left knee 11/09/2024 Primary localized osteoarthritis of right knee 1 09/19/2023 Encounters Date Type Department Care Team Description 05/24/2025 XD Nutritiont Message [facility] Surgery [address] [place] [address] Site[employer], Generic Provider Questionnaire due soon 05/08/2025 [employer] Message [address] [address] Network [employer]ware [employer], Generic Provider Questionnaire due soon from Last 3 Months Social History Tobacco [...] Sign Reading Time Taken Comments Blood Pressure 148/72 02/08/2025 12:41 PM EDT Pulse 72 02/08/2025 12:41 PM EDT Temperature 36.1 C (97 F) 02/08/2025 12:41 PM EDT Respiratory Rate 16 02/08/2025 12:41 PM EDT Oxygen Saturation 100% 02/08/2025 12:41 PM EDT Inhaled Oxygen Concentration - - Weight 63.5 kg (140 lb) 01/27/2025 1:48 PM EDT Height 165.1 cm (5' 5 ) 01/21/2025 1:57 PM EDT Body Mass Index 23.3 01/21/2025 1:57 PM EDT Plan of Treatment Health Maintenance Due Date Last Done Comments Hepatitis C Screening 1945 Urine Microalbumin 1956 Osteoporosis Screening 1996 Alcohol/Substance Use Screening 09/09/2024 Depression Screening and Follow-Up 09/09/2024 Health Care Proxy Review 09/09/2024 Social Drivers of Health Annual Screening 09/09/2024 COVID-19 Vaccine ( season) 2025 06/21/2024, 06/16/2023, 06/20/2022, Additional history exists Influenza Vaccine (#1) 2025 , 06/21/2024, 06/16/2023, Additional history exists Basic Metabolic Panel 11/10/2025 11/10/2024 , 10/29/2024, 07/31/2024, Additional history exists Fall Risk Screening 02/08/2026 02/08/2025 Pneumococcal Vaccine: 50+ Years (3 of 3 - PCV20 or PCV21) 05/05/2026 05/05/2021, 12/05/2018, 05/23/2011 DTaP,Tdap,and Td Vaccines (2 - Td or Tdap) 12/01/2031 11/30/2021, 03/25/2018, 06/27/2017, Additional history exists Tobacco Screening 09/09/2042 02/08/2025 Zoster Vaccines Completed 11/30/2021, 09/28/2021 RSV Vaccine (60+ years old and patients) Completed 08/07/2023 Hepatitis B Vaccines Aged Out No long er eligible based on patient's age to complete this topic Goals Goal Patient Goal Type Associated Problems Recent Progress Patient-Stated? Author Autogenerat ed Goal Care Plan Autogenerated Problem No Stacey Mace RN Medical Devices Implanted Type Area Manager Er Device Identifier Shelf Expiration Date Model / Serial / Lot Patella Asymmetric Metal Backed Tritanium Size A32 [id number] Tritanium - [id number] Implanted:Qty: 1 on 07/20/2024 by Saqib Santos J.P., MD at [facility] Implant Right: Knee CHRISTIE [id number] 04/09/2029 5552-L-32 0 / / [id number] Insert Tibial Bearing Size 4 11mm Triathlon X3 - [id number] Implanted:Qty: 1 on 07/20/2024 by Saqib Santos J.P., MD at [facility] Implant Right: Knee CHRISTIE [id number] 03/27/2029 5531-G-41 1-E / / [id number] Component Femoral Knee Cruciate Retaining Right Size 4 - [id number] Implanted:Qty: 1 on 07/20/2024 by Saqib Santos J.P., MD at [facility] Implant Right: Knee CHRISTIE [id number] 04/25/2029 5517-F-40 2 / / [id number] Baseplate Tritanium Size 4 Triathlon - [id number] Implanted:Qty: 1 on 07/20/2024 by Saqib Santos J.P., MD at [facility] Implant Right: Knee CHRISTIE [id number] 03/02/2029 5536-B-40 0 / / [id number] Component Femoral Cruciate Retaining Beaded Left Size 4 Triathlon - [id number] Implanted:Qty: 1 on 11/09/2024 by Saqib Santos J.P., MD at [facility] Implant Left: Knee CHRISTIE [id number] 01/22/2029 5517-F-40 1 / / [id number] Baseplate Tritanium Size 4 Triathlon - [id number] Implanted:Qty: 1 on 11/09/2024 by Saqib Santos J.P., MD at [facility] Implant Left: Knee CHRISTIE [id number] 08/27/2029 5536-B-40 0 / / [id number] Patella Asymmetric Metal Backed Tritanium Size A32 [id number] Tritanium - [id number] Implanted:Qty: 1 on 11/09/2024 by Saqib Santos J.P., MD at [facility] Implant Left: Knee CHRISTIE [id number] 01/21/2029 5552-L-32 0 / / [id number] Tibial Bearing Insert Size 4 9mm Triathlon - [id number] Implanted:Qty: 1 on 11/09/2024 by Saqib Santos J.P., MD at [facility] Implant Left: Knee CHRISTIE [id number] 06/18/2029 5531-G-40 9-E / / [id number] Procedures * Due to [facility] law, this organization might not be sharing negative HIV tests. Procedure Name Priority Date/Time Associated Diagnosis Comments BASIC METABOLIC PANEL Routine 11/10/2024 10:17 AM EST from Last 3 Months or Most Recently Relevant to Health Maintenance Results * Due to [facility] law, this organization might not be sharing negative HIV tests. * (ABNORMAL) Basic Metabolic Panel (11/10/2024 10:17 AM EST) NA 135 135 - 145 mmol/L 11/10/2024 11:10 AM EST [facility] K 4.7 3.5 - 5.3 mmol/L 11/10/2024 11:10 AM EST [facility] Cl 100 98 - 107 mmol/L 11/10/2024 11:10 AM EST [facility] CO2 25 22 - 32 mmol/L 11/10/2024 11:10 AM EST [facility] BUN 17 7 - 23 mg/dL 11/10/2024 11:10 AM EST [facility] Creatinine 1.13 0.50 - 1.20 mg/dL 11/10/2024 11:10 AM EST [facility] Glucose 256(H) 65 - 99 mg/dL 11/10/2024 11:10 AM EST [facility] Calcium 8.7 8.6 - 10.5 mg/dL 11/10/2024 11:10 AM EST [facility] Anion Gap 10 5 - 15 11/10/2024 11:10 AM EST [facility] eGFR 50(L) >=60 mL/min/1. 73m2 11/10/2024 11:10 AM EST [facility] Comment:The estimated glomer ular filtration rate [...] MD LAB BLOOD ORDERABLES Final R esult [facility] [address] [place] [address], from Last 3 Months or Most Recently Relevant to Health Maintenance Additional Health Concerns Active Problems Noted Date Diagnosed Date Autogenerated Problem 05/17/2025 Insurance MEDICARE MEDICARE Member Subscriber Plan / Payer (Ef fective 2011-Present) Name:Lillian Copeland Member ID:[id number] Relation to Subscriber:Self Name:Lillian Copeland Subscriber ID:[id number] Payer ID:[id number] Group ID:Not on file Type:Not on file Address: [address] Advance Directives Documents on File Type Date Recorded Patient Shell Fisherman Expl anation Health Care Proxy 07/02/2024 1:51 PM [place] [facility] Proxy * Full Code (Latest Code Status on File) Date Activated Date Inactivated Comments 11/09/2024 12:05 PM 11/12/2024 6:25 PM * Full Code Date Activated Date Inactivated Comments 07/20/2024 12:55 PM 07/22/2024 3:45 PM Care Teams Auto Mechanic Apprentice Relationship Specialty Start Date End Date Chen Pop [address] [place] [address] PCP - General Internal Medicine 05/01/24
--- OUTSIDE RECORDS SUMMARY | 2025-07-06 14:56 | XMS_ITS | Encounter Summary ---
Author Organization [facility] Address [address] [place] [address] Care Team Providers Care Owner/Operator Name Role Phone Chen Pop Primary Care Provider [phone] Encounter Details Date Type Department Care Team (Late st Contact Info) Description 07/06/2024 Revstr Message Intial Department [address] [place] [address] Mychart, Generic Provider [address] [place] [address] Questionnaire Submission Social History Tobacco Use [...] on filedocumented in this encounter Care Teams Owner/Operator Relationship Specialty Start Date End Date Chen Pop 1960 [place], [place] [id number] PCP - General Internal Medicine 05/01/24 documented as of this encounter
--- OUTSIDE RECORDS SUMMARY | 2025-07-06 14:56 | XMS_ITS | Patient Health Record ---
Author Organization [facility] Address [address] [place] [address] Care Team Providers Care Pipe Coverer And Insulator Name Role Phone Brady SHARP, Judy Primary Care Provider Unav ailable KnappTalha Unavailable [phone] Reason For Referral No Information Medications Medication SIG (Take, Route, Frequency, Duration) Notes Start Date End Date Status Evista Active Vagifem Active Pantoprazole Sodium 40 MG 1 tablet Orall y Twice a day 30 minutes AC; Duration: 90 day(s) 03/04/2012 Active Propranolol HCl Acti ve Protonix Active Problems Problem Type SNOMED Code ICD Code Onset Dates Problem Status W/U Status Risk Notes Problem Achalasia (finding) (60320408) 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 Problem Reflux esophagitis (453852764) Reflux esophagitis (530.11) Active confirmed Problem Esophageal reflux (980773624) Esophageal reflux (530.81) Active confirmed Problem Alberto's esophagus (827381128) 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 Problem Constipation (28391623) Unspecified constipation (564.00) Active confirmed Problem Screening for malignant neoplasm of colon (639514182) Special screening for malignant neoplasms, colon (V76.51) Active confirmed Plan Of Treatment Future Test Test Name Order Date UPPER GI ENDOSCOPY 06/15/2011 COLONOSCOPY 06/15/2011 Insurance Providers Payer Name Payer Address Payer Phone Subscriber Number Group Number Insured Name Patient Relationship to Insured Coverage Start Date Coverage End Date MEDICARE OF [place] [facility] [address] [place] [address] [place] [id number] [phone] [id number] MELIDA LAZCANO Self - patient is the [facility] [address] [facility] [address] [phone] [id number] MELIDA LAZCANO Self - patient is the insured Medical (General) History Medical History History ICD Code Achalsia GERD with Alberto's esophagus and esopha gitis meningioma Denies NH,DM,CVA,Lung disease,renal dise ase migraines Surgical History Surgery Date(Month/Year) meningioma removed in May [address] Andre at [facility]. Heller myotomy 09/1999 Varicose veins
--- OUTSIDE RECORDS SUMMARY | 2025-07-06 14:56 | XMS_ITS | Encounter Summary ---
Author Organization [facility] Address [address] [place] [address] Care Team Providers Care Plastic Tool Maker Name Role Phone Chen Pop Primary Care Provider [phone] Encounter Details Date Type Department Care Team (Late st Contact Info) Description 10/24/2024 [employer] Message Intial Department [address] [place] [address] Mychart, Generic Provider [address] [place] [address] Questionnaire Submission Social History Tobacco Use [...] on filedocumented in this encounter Care Teams Plastic Tool Maker Relationship Specialty Start Date End Date Chen Pop [address] [place], [place] [id number] PCP - General Internal Medicine 05/01/24 documented as of this encounter
--- OUTSIDE RECORDS SUMMARY | 2025-07-06 14:56 | XMS_ITS | Encounter Summary ---
Author Organization [facility] Address [address] [place] [address] Care Team Providers Care Dietetics Professor Name Role Phone Chen Pop Primary Care Provider [phone] Encounter Details Date Type Department Care Team (Late st Contact Info) Description 07/06/2024 Dreamise Message Intial Department [address] [place] [address] Mychart, Generic Provider [address] [place] [address]93 Questionnaire Submission Social History Tobacco Use [...] on filedocumented in this encounter Care Teams Dietetics Professor Relationship Specialty Start Date End Date Chen Pop [address] [place], [place] [address] PCP - General Internal Medicine 05/01/24 documented as of this encounter
--- OUTSIDE RECORDS SUMMARY | 2025-07-06 14:56 | XMS_ITS | Encounter Summary ---
Author Organization [facility] Address [address] [place] [address] Care Team Providers Care Financial Investment Manager Name Role Phone Chen Pop Primary Care Provider [phone] Encounter Details Date Type Department Care Team (Late st Contact Info) Description 10/27/2024 Earlier Media Message Intial Department [address] [place] [address] Mychart, Generic Provider [address] [place] [address] Questionnaire Submission Social History Tobacco Use [...] on filedocumented in this encounter Care Teams Financial Investment Manager Relationship Specialty Start Date End Date Chen Pop 1960 [place], [place] [id number] PCP - General Internal Medicine 05/01/24 documented as of this encounter
--- OUTSIDE RECORDS SUMMARY | 2025-07-06 14:56 | XMS_ITS | Encounter Summary ---
Author Organization [facility] Address [address] [place] [address] Care Team Providers Care Biology Teacher Name Role Phone Chen Pop Primary Care Provider [phone] Encounter Details Date Type Department Care Team (Late st Contact Info) Description 07/06/2024 Days [employer] Wonder Message Intial Department [address] [place] [address] Mychart, Generic Provider [address] [place] [address]93 Questionnaire Submission Social History Tobacco Use [...] on filedocumented in this encounter Care Teams Biology Teacher Relationship Specialty Start Date End Date Chen Pop 1960 [place], [place] [id number] PCP - General Internal Medicine 05/01/24 documented as of this encounter
--- OUTSIDE RECORDS SUMMARY | 2025-07-06 14:56 | XMS_ITS | Encounter Summary ---
Author Organization [facility] Address [address] [place] [address] Care Team Providers Care Accreditation Manager Name Role Phone Chen Pop Primary Care Provider [phone] Encounter Details Date Type Department Care Team (Late st Contact Info) Description 10/24/2024 Damballa Message Intial Department [address] [place] [address] Mychart, Generic Provider [address] [place] [address] Questionnaire Submission Social History Tobacco Use [...] on filedocumented in this encounter Care Teams Accreditation Manager Relationship Specialty Start Date End Date Chen Pop 1960 [place], [place] [address] PCP - General Internal Medicine 05/01/24 documented as of this encounter
--- OUTSIDE RECORDS SUMMARY | 2025-07-06 14:56 | XMS_ITS | Encounter Summary ---
Author Organization [facility] Address [address] [place] [address] Care Team Providers Care Wage Analyst Name Role Phone Chen Pop Primary Care Provider [phone] Encounter Details Date Type Department Care Team (Late st Contact Info) Description 03/09/2025 itembase Message [facility] Surgery [address] [place] [address] MycharPagoFacil, [facility] Provider [facility]ly [facility], [place] [address] Questionnaire due soon Social History [...] on filedocumented in this encounter Care Teams Wage Analyst Relationship Specialty Start Date End Date Chen Pop [address] [place] [address] PCP - General Internal Medicine 05/01/24 documented as of this encounter
--- OUTSIDE RECORDS SUMMARY | 2025-07-06 14:56 | XMS_ITS | Encounter Summary ---
Author Organization [facility] Address [address] [place] [address] Care Team Providers Care Stogy Maker Name Role Phone Chen Pop Primary Care Provider [phone] Encounter Details Date Type Department Care Team (Late st Contact Info) Description 07/06/2024 VisualXcript Message Intial Department [address] [place] [address] Mychart, Generic Provider [address] [place] [address] Questionnaire Submission Social History Tobacco Use [...] on filedocumented in this encounter Care Teams Stogy Maker Relationship Specialty Start Date End Date Chen Pop [address] [place], [place] [address] PCP - General Internal Medicine 05/01/24 documented as of this encounter
--- OUTSIDE RECORDS SUMMARY | 2025-07-06 14:56 | XMS_ITS | Clinical Summary ---
Author Organization [facility] Address [address] [address] Phone Care Team Providers Care Travel Coordinator Name Role Phone Gabriele Mayersjuni Carlisle Tess Hawthorne DDS Unavailab le Bro Marino DMD Unavailable [phone] Chen Pop MD Primary Care Provider [phone] Allergies Active Allergy Reactions Criticality Noted Date [...] mg by mouth daily. Active Ca cit-D3-mag#11-zin r-rwmu-nxy-bor (CALTRATE 600+D) 600 mg calcium- 800 unit-50 [...] CONTROL. 100 mL 2 4 Active diphenhydramine-l jurpeikm-djzl-oti -simethicone (MAGIC MOUTHWASH-BLM) 62-243-984-40 mg/30mL suspensionIndicat ions:Trigeminal neuropathy Swish and spit [...] EDT) SODIUM 138 133 - 146 mmol/L [facility] POTASSIUM 4.8 3.3 - 5.1 mmol/L [facility] CHLORIDE 101 96 - 108 mmol/L [facility] CO2 25 21 - 35 mmol/L [facility] BUN 60(H) 6 - 19 mg/dL [facility] CREATININE 3.70(H) 0.5 - 1.5 mg/dL [facility] GLUCOSE 120(H) 70 - 99 mg/dL [facility] ALBUMIN 3.8(L) 3.9 - 4.8 g/dL [facility] TOTAL PROTEIN 7.4 6.5 - 8.0 g/dL [facility] CALCIUM 9.9 8.4 - 10.3 mg/dL [facility] ALKALINE PHOSPHATASE 80 39 - 117 U/L [facility] TOTAL BILIRUBIN 0.2 0.0 - 1.2 mg/dL [facility] AST 24 0 - 37 U/L [facility] ALT 10 0 - 40 U/L [facility] GLOBULIN 3.6 1 - 4.8 g/dL [facility] EGFR 11(L) >59 mL/min/1.7 3m2 [facility] Comment:Estimated glomerular filtration rate calculated using the CKD-EPI equation. ANION GAP 17 10 - 20 mmol/L [facility] Blood 04/20/2021 10:4 7 AM EDT 04/20/2021 10:50 AM EDT us Makenna Ayers MD LAB BLOOD ORDERABLES Fin al Result [facility] [address] [place] [address] from Last 3 Months or Most Recently Relevant to Health Maintenance Insurance MEDICARE PART A & B MEDICARE SUPPLEMENT MEDICARE PART A & B Member Subscriber Plan / Payer (Ef fective 2011-Present) Name:Lillian Copeland Member ID:[id number] Relation to Subscriber:Self Name:Lillian Copeland Subscriber ID:[id number] Payer ID:[id number] Group ID:Not on file Type:Medicare Address: [place] [address] [place] MEDICARE SUPPLEMENT MEDICARE PART A & B [facility] MEDICARE SUPPLEMENT MEDICARE PART A & B MEDICARE SUPPLEMENT MEDICARE SUPPLEMENT MEDICARE PART A & B MEDICARE SUPPLEMENT MEDICARE PART A & B Member Subscriber Plan / Payer (Ef fective 2011-Present) Name:Lillian Copeland Member ID:[id number] Relation to Subscriber:Self Name:MinLillian Subscriber ID:[id number] Payer ID:[id number] Group ID:Not on file Type:Medicare [facility] [address] [place] [address] [place] [address] MEDICARE SUPPLEMENT MEDICARE PART A & B Member Subscriber Plan / Payer (Ef fective 2011-Present) Name:Lillian Copeland Member ID:[id number] Relation to Subscriber:Self Name:Lillian Copeland Subscriber ID:[id number] Payer ID:[id number] Group ID:Not on file Type:Medicare Address: [place] [address] [place] [phone] [facility] MEDICARE SUPPLEMENT MEDICARE PART A & B Member Subscriber Plan / Payer (Ef fective 2011-Present) Name:Lillian Copeland Member ID:[id number] Relation to Subscriber:Self Name:Lillian Copeland Subscriber ID:[id number] Payer ID:[id number] Group ID:Not on file Type:Medicare Address: [place] [address] [place] [id number] [facility] MEDICARE SUPPLEMENT Advance Directives For more information, please contact: [phone] (9AM - 5PM Cynthia/[facility], Saturday-Saturday) Documents on File Type Date Recorded Patient Shelter Supervisor Expl anation Healthcare Proxy 01/05/2019 Care Teams Travel Coordinator Relationship Specialty Start Date End Date Chen Pop MD [address] [place] [address] PCP - General Internal Medicine 05/22/24 Tess Thomas DDS senior compliance officer 08/06/18 Bro Marino DMD [address] [place] [address] [email or web address] Surgeon senior compliance officer 01/21/19 Additional Source Comments The information contained in this document represents components of the legal health record. It is not the complete legal health record.[facility]
--- OUTSIDE RECORDS SUMMARY | 2025-07-06 14:56 | XMS_ITS | Encounter Summary ---
Author Organization [facility] Address [address] [place] [address] Care Team Providers Care Clinical Veterinarian Name Role Phone Chen Pop Primary Care Provider [phone] Encounter Details Date Type Department Care Team (Late st Contact Info) Description 10/26/2024 [employer] Message Intial Department [address] [place] [address] Mychart, Generic Provider [address] [place] [address] Questionnaire Submission Social History Tobacco Use [...] filedocumented in this encounter Care Teams Clinical Veterinarian Relationship Specialty Start Date End Date Chen Pop 1960 [place], [place] [phone] PCP - General Internal Medicine 05/01/24 documented as of this encounter
== END 2025-07-06 12:26 | disposition home or self-care (01) ==
LOC: HO.HMCC 11:38
PROVIDERS: PCP Internal Medicine; Visit Provider Internal Medicine
DX: J32.9 Chronic sinusitis, unspecified (principal)

== ENCOUNTER → 2025-07-06 11:36 | Outpatient (BNVA) | payer MEDICARE, OTHER, SELFPAY | PROVIDERS: PCP Internal Medicine; Visit Provider Internal Medicine | DX: J32.9 Chronic sinusitis, unspecified (principal) | CPT/HCPCS: 99212 ==

== ENCOUNTER 2025-08-11 14:46 | Outpatient (REF) | payer MEDICARE, OTHER, SELFPAY ==
--- OUTSIDE RECORDS SUMMARY | 2025-08-09 23:59 | XMS_ITS | Continuity of Care Document ---
Author Organization [facility] Address [address] [place] [phone]- Care Team Providers Care Supervisor Dry Cleaning Name Role Phone Chen Pop MD Primary Care Physician [phone] Encounter 08/08/25 - 08/09/[address] [address] Attending Physician: Not on Staff, Attending MD Referring Physician: Waldemar SHARP [facility] Encounter Type: SMRI Allergies, Adverse Reactions, Alerts No Known Allergies [...] day, # 180 tablet, 2 Refills, Maintenance, 12/07/24 8:11:00 AM EDT, [id number], 165, cm, 10/20/24 13:53:00 EST, Height, 67.6, kg, 10/01/24 13:10:00 EST, Dry Weight Start Date: 12/07/24 Status: Ordered Medication Dispense Status: Completed Quantity: 180.0 Unit: tablet Total Allowed Fills: 1 Fills Dispensed: 0 Aspirin Low Dose 81 mg oral delayed release tablet 1 tablet, By Mouth, Daily, # 90 tablet, 3 Refills, Maintenance, 06/27/22 7:48:00 AM EDT, [id number], 165, cm, 06/01/22 14:30:00 EDT, Height, 70.5, kg, 05/23/22 12:06:00 EDT, Dry Weight Start Date: 06/27/22 Status: Ordered Medication Dispense Status: Completed Quantity: 90.0 Unit: tablet Total Allowed Fills: 1 Fills Dispensed: 0 Bactrim DS 800 mg-160 mg oral tablet 1 tablet, By Mouth, Every Saturday, Saturday and Saturday, drink plenty of fluids prophylaxis, # 12 tablet, 4 Refills, Maintenance, 08/09/25 8:28:00 AM EST, [facility]/pharmacy #[id number], Partial fill upon patient request if the prescription is for a schedule II opioid drug., 1 tablet By Mouth Every Saturday, Saturday and Saturday,Instr:drink plenty of fluids; prophylaxis, 165, cm, 07/28/25 10:32:00 EST, Height, 64.2, kg, 07/28/25 10:32:00 EST, Dry Weight Start Date: 08/09/25 Status: Ordered Medication Dispense Status: Completed Quantity: 12.0 Unit: tablet Total Allowed Fills: 5 Fills Dispensed: 0 Fish Oil 1000 mg oral capsule 1 capsule = 1,000 mg, By Mouth, Daily, 0 Refills, Maintenance, 06/03/20 6:18:00 AM EDT Start Date: 06/03/20 Status: Ordered Medication Dispense Status: Completed Total Allowed Fills: 1 Fills Dispensed: 0 gabapentin 300 mg oral capsule 2, capsule, By Mouth, Daily at bedtime, # 60 capsule, Refills 0, Maintenance, 06/27/22 8:11:00 AM EDT, Route to Pharmacy Electronically, [id number], 165, cm, 06/01/22 14:30:00 EDT, Height, 70.5,kg, 05/23/22 12:06:00 EDT, Dry Weight Start Date: 06/27/22 Status: Ordered Medication Dispense Status: Completed Quantity: 60.0 Unit: capsule Total Allowed Fills: 1 Fills Dispensed: 0 ixazomib 3 mg oral capsule 1 capsule = 3 mg, By Mouth, Every 7 days, on day 1, 8 and 15 of a 28-day cycle, # 3 capsule, 0 Refills, Maintenance, 06/03/25 5:13:00 PM EDT, Capsule, [facility], Partial fill upon patient request if the prescription is for a schedule II opioid drug., 165, cm, 04/27/25 16:12:00 EDT,Height, 64.7, kg, 03/17/25 10:05:00 EDT, Dry Weight Start Date: 06/03/25 Status: Ordered Medication Dispense Status: Completed Quantity: 3.0 Unit: capsule Total Allowed Fills: 1 Fills Dispensed: 0 ixazomib 3 mg oral capsule 1 capsule = 3 mg, By Mouth, Every 7 days, on day 1, 8 and 15 of a 28-day cycle, # 3 capsule, 1 Refills, Maintenance, 06/29/25 6:45:00 AM EDT, Capsule, [facility], Partial fill upon patient request if the prescription is for a schedule II opioid drug., 165, cm, 04/27/25 16:12:00 EDT, Height, 64.7, kg, 03/17/25 10:05:00 EDT, Dry Weight Start Date: 06/29/25 Status: Ordered Medication Dispense Status: Completed Quantity: 3.0 Unit: capsule Total Allowed Fills: 2 Fills Dispensed: 0 ixazomib 3 mg oral capsule 1 capsule = 3 mg, By Mouth, Every 7 days, on day 1, 8 and 15 of a 28-day cycle, # 3 capsule, 0 Refills, Maintenance, 02/26/25 12:39:00 PM EDT, Capsule, [facility], Partial fill upon patient request if the prescription is for a schedule II opioid drug., 165, cm, 12/30/24 10:29:00 EDT, Height, 65.4, kg, 12/30/24 10:29:00 EDT, Dry Weight Start Date: 02/26/25 Status: Ordered Medication Dispense Status: Completed Quantity: 3.0 Unit: capsule Total Allowed Fills: 1 Fills Dispensed: 0 lisinopril 5 mg oral tablet 5 mg, 1, tablet, By Mouth, Daily, # 30 tablet, Refills 0, Maintenance, 06/06/23 11:57:00 AM EDT, Partial fill upon patient request if the prescription is for a schedule II opioid drug. Start Date: 06/06/23 Status: Ordered Medication Dispense Status: Completed Quantity: 30.0 Unit: tablet Total Allowed Fills: 1 Fills Dispensed: 0 montelukast 10 mg oral tablet 10 mg, 1, tablet, By Mouth, Daily, Refills 0, Maintenance, 06/06/23 11:57:00 AM EDT, Partial fill upon patient request if the prescription is for a schedule II opioid drug. Start Date: 06/06/23 Status: Ordered Medication Dispense Status: Completed Total Allowed Fills: 1 Fills Dispensed: 0 ondansetron 8 mg oral tablet 1 tablet = 8 mg, By Mouth, Every 8 hours, PRN Nausea, may cause constipation for use when starts chemotherapy, # 30 tablet, 2 Refills, Maintenance, 08/09/25 8:29:00 AM EST, [facility]/pharmacy #[id number], Partialfill upon patient request if the prescription is for a schedule II opioid drug., 165, cm, 07/28/25 10:32:00 EST, Height, 64.2, kg, 07/28/25 10:32:00 EST, Dry Weight Start Date: 08/09/25 Status: Ordered Medication Dispense Status: Completed Quantity: 30.0 Unit: tablet Total Allowed Fills: 3 Fills Dispensed: 0 pantoprazole 40 mg oral delayed release tablet 1 tablet = 40 mg, By Mouth, Daily, # 30 tablet, 0 Refills, Maintenance, 07/19/21 5:15:00 PM EST, [facility], 165, cm, 07/19/21 15:29:00 EST, Height, 75.2, kg, 07/19/21 15:29:00 EST, Dry Weight Start Date: 07/19/21 Stop Date: 08/18/21 Status: Ordered Medication Dispense Status: Completed Quantity: 30.0 Unit: tablet Total Allowed Fills: 1 Fills Dispensed: 0 pomalidomide 4 mg oral capsule 1 capsule = 4 mg, By Mouth, Daily, on an empty stomach for the first 21 days of each 28-day cycle, # 21 capsule, 0 Refills, Maintenance, 07/30/25 12:55:00 PM EST, Capsule, [facility], Partial fill upon patient request if the prescription is for a schedule II opioid drug., 165, cm, 07/28/25 10:32:00 EST, Height, 64.2, kg, 07/28/25 10:32:00 EST, Dry Weight Start Date: 07/30/25 Status: Ordered Medication Dispense Status: Completed Quantity: 21.0 Unit: capsule Total Allowed Fills: 1 Fills Dispensed: 0 prochlorperazine 5 mg oral tablet 1-2 TABLETS, By Mouth, Every 6 hours, PRN NEEDED FOR NAUSEA, # 60 tablet, 1 Refills, Maintenance, 08/19/23 8:20:00 AM EST, [id number], 165, cm, 08/14/23 10:00:00 EST, Height, 71, kg, 08/14/2310:00:00 EST, Dry Weight Start Date: 08/19/23 Status: Ordered Medication Dispense Status: Completed Quantity: 60.0 Unit: tablet Total Allowed Fills: 1 Fills Dispensed: 0 prochlorperazine 5 mg oral tablet 1 tablet = 5 mg, By Mouth, Every 6 hours, PRN Nausea, # 30 tablet, 1 Refills, Maintenance, 08/09/25 8:29:00 AM EST, [facility]/pharmacy #[id number], Partial fill upon patient request if the prescription is for a schedule II opioid drug., 165, cm, 07/28/25 10:32:00 EST, Height, 64.2, kg, 07/28/25 10:32:00 EST, Dry Weight Start Date: 08/09/25 Status: Ordered Medication Dispense Status: Completed Quantity: 30.0 Unit: tablet Total Allowed Fills: 2 Fills Dispensed: 0 rOPINIRole 0.5 mg oral tablet 1 tablet = 0.5 mg, By Mouth, 2 times a day, 0 Refills, Maintenance, 02/14/22 12:10:00 PM EDT, Partialfill upon patient request if the prescription is for a schedule II opioid drug. Start Date: 02/14/22 Status: Ordered Medication Dispense Status: Completed Total Allowed Fills: 1 Fills Dispensed: 0 timolol maleate 0.5% ophthalmic gel forming solution 1 drops, Eye, Right, Daily, # 5 mL, 0 Refills, Maintenance, 06/06/23 11:57:00 AM EDT, Gel, Partial fill upon patient request if the prescription is for a schedule II opioid drug. Start Date: 06/06/23 Status: Ordered Medication Dispense Status: Completed Quantity: 5.0 Unit: mL Total Allowed Fills: 1 Fills Dispensed: 0 traZODone 50 mg oral tablet 25 mg, 0.5, tablet, By Mouth, Daily at bedtime, # 15 tablet, Refills 0, Maintenance, 04/26/21 7:36:00 PM EDT, Partial fill upon patient request if the prescription is for a schedule II opioid drug. Start Date: 04/26/21 Status: Ordered Medication Dispense Status: Completed Quantity: 15.0 Unit: tablet Total Allowed Fills: 1 Fills Dispensed: 0 Tylenol Caplet Extra Strength 500 mg oral tablet 2 tablet = 1,000 mg, By Mouth, Every 6 hours, 0 Refills, Maintenance, 01/13/15 3:42:40 PM EDT Start Date: 01/13/15 Status: Ordered Medication Dispense Status: Completed Total Allowed Fills: 1 Fills Dispensed: 0 Vitamin D3 1000 intl units oral capsule 1 capsule = 25 mcg, By Mouth, Daily, # 100 capsule, 0 Refills, Maintenance, 05/03/21 12:36:00 PM EDT, Capsule, [facility], Partial fill upon patient request if the prescription is for a schedule II opioid drug., 165, cm, 05/03/21 7:51:00 EDT, Height, 77.5, kg, 03/31/21 6:29:00 EDT, DryWeight Start Date: 05/03/21 Status: Ordered Medication Dispense Status: Completed Quantity: 100.0 Unit: capsule Total Allowed Fills: 1 Fills Dispensed: 0 Problem List Condition Confirmation Course Effective Dates Status H ealth Status Informant Essential hypertension Confirmed Active Essential tremor Confirmed Active GERD without esophagitis Confirmed Active Intracranial tumor NOS Confirmed Active Meningioma Confirmed Active Myeloma Confirmed Active Osteoarthritis of right knee joint Confirmed 07/20/24 Active Osteoporotic fracture 1 Confirmed 04/20/21 Active 1Outside Source Comment: Last Assessment & Plan: Prominent osteoporosis with multiple vertebral compression fractures i [id number], L3 and bilateral sacral chu within the last calendar year despite long-term therapy with Evista 60 mg daily since June 2003. She has severe GERD that disqualifies her from using oral bispho sphonates. She is a candidate for subcutaneous Prolia every 6 months. I have encouraged her to continue proper calcium and vitamin D supplementation in addition to resuming daily weightbearing exercises gradually building up to the goal of 45-60 minutes daily, preferably at home if she likes tothe music since she is afraid of going outside and falling because of poor gait due to poorly healed left ankle fracture in August 2019. I provided her with pamphlet on its side effects to read in the right questions for me in addition to asking her for basic lab work prior to administering it. Social History Social History Type Response Smoking Status Former smoker, quit more than 30 days ago entered on: 10/01/24 Sex Sex Representation Female (finding) Patient Care team information Care Team Personnel Name: Sophia Khanna Position: S Onco RN Member Role: Primary Care Nurse Name: Chen Pop MD Position: [facility] Physician - Primary Care Member Role: PCP Address: [address] [place] [address]- Telecom: Name: Eli Layton RN Position: S RN Member Role: Primary Care Nurse Name: Binta Rolon RN Position: [facility] Onco RN Member Role: Primary Care Nurse Name: Cony Hernández RN Position: S Onco RN Member Role: Primary Care Nurse Name: Torri Manley RN Position: S RN Member Role: Primary Care Nurse Name: Jerman Bain MD Position: S Outreach Member Role: Lifetime Consulting Physician Address: [address] [facility], [place] [address]- Telecom: Name: Arnulfo Estrella RN Position: [facility] Onco RN Member Role: Primary Care Nurse Name: Marj Pickard RN Position: S Onco RN Member Role: Primary Care Nurse Name: Zay Braswell RN Position: S RN Member Role: Primary Care Nurse Name: Chantel Hyde RN, I Position: S RN Member Role: Primary Care Nurse Care Team Related Persons Name: IDA MARSHALL Name: ARMANDO MARSHALL Insurance Providers Guarantor name: MELIDA LAZCANO [facility] Plan Information #: 1 Payer: MEDICARE B Payer Identifier: GLADYS Member Number: [id number] Group Number: [id number] Subscriber Identifier: GLADYS Relationship to Subscriber: self Coverage Type: NA Coverage Verification Date: NA Telecom: NA Address: GLADYS [facility] Plan Information #: 2 Payer: 50 [employer] [facility] [employer] Payer Identifier: GLADYS Member Number: [id number] Group Number: [id number] Subscriber Identifier: GLADYS Relationship to Subscriber: self Coverage Type: Medicare Other Coverage Verification Date: GLADYS Telecom: NA Address: NA
--- NOTE | ~2025-08-11 | XR_ITS ---
EXAMINATION: XR RIBS, RIGHT CLINICAL INFORMATION: S29.9XXA - Unspecified injury of thorax, initial encounter COMPARISON: Chest x-ray 12/20/2022. TECHNIQUE: PA chest, and 3 views of the right ribs were obtained. FINDINGS: Is demonstrate mild prominence of the interstitial markings, nonspecific. Lungs otherwise clear. No consolidation, pneumothorax, or pleural effusion. The cardiomediastinal silhouette and pulmonary vasculature are normal. Osseous structures are unremarkable. Ribs are intact. No acute fractures are identified. There are old healed rib fractures of the right anterior third and fourth ribs, as well as the anterolateral seventh and eighth right ribs. Moderate degenerative arthritis right shoulder joint. Degenerative changes throughout the spine, with vertebral plasty cement seen at T11, T12, and L4. XR/XR ribs RT min 3V w CXR1V IMPRESSION: 1. No acute right rib fractures identified. 2. No active lung disease. Electronically signed by: Yovanny Espinosa MD 08/11/2025 03:26 PM [facility]ERGERON
--- NOTE | ~2025-08-11 | XR_ITS ---
EXAMINATION: XR SHOULDER 2 OR MORE VIEWS RIGHT HISTORY: M25.511 - Pain in right shoulder COMPARISON: There are no prior studies available for comparison. FINDINGS: Five views of the right shoulder are submitted. Osseous mineralization is normal. There is no fracture or dislocation. There is mild degenerative change of the glenohumeral joint with joint space narrowing and osteophyte formation. There is mild narrowing of the AC joint. The soft tissues are unremarkable. XR/XR shoulder RT min 2V IMPRESSION: Mild degenerative change of the glenohumeral and acromioclavicular joints. Electronically signed by: Talha Browning MD 08/11/2025 03:19 PM DAL[facility]
--- NOTE | ~2025-08-11 | XR_ITS ---
EXAMINATION: XR KNEE, RIGHT CLINICAL INFORMATION: M17.11 - Unilateral primary osteoarthritis, right knee COMPARISON: X-ray 04/03/2024 TECHNIQUE: Two views of the right knee. FINDINGS: Status post total knee arthroplasty. Expected position alignment. No acute fracture. No suspicious perihardware lucency. No significant effusion. Vascular calcification. XR/XR knee RT 2V IMPRESSION: Total knee arthroplasty. No radiographic evidence of acute osseous findings Electronically signed by: Alexey Naqvi MD 08/12/2025 02:57 PM EST
--- OUTSIDE RECORDS SUMMARY | 2025-08-11 17:41 | XMS_ITS | Encounter Summary ---
Author Organization [facility] Address [address] [place] [address] Care Team Providers Care Probate Judge Name Role Phone Chen Pop Primary Care Provider [phone] Encounter Details Date Type Department Care Team (Late st Contact Info) Description 02/01/2025 [employer] Message [facility] Surgery [address] [place] [address] MycharaVinci Media, [facility] Provider [address] [place] [address] Questionnaire due soon Social History Tobacco [...] on filedocumented in this encounter Care Teams Probate Judge Relationship Specialty Start Date End Date Chen Pop [address] [place] [address] PCP - General Internal Medicine 05/01/24 documented as of this encounter
--- OUTSIDE RECORDS SUMMARY | 2025-08-11 17:41 | XMS_ITS | Encounter Summary ---
Author Organization [facility] Address [address] [place] [address] Care Team Providers Care Auto Mechanic Apprentice Name Role Phone Lorraine Popanna Primary Care Provider Encounter Details Date Type Department Care Team (Late st Contact Info) Description 05/08/2025 [employer] Message [facility] Surgery [address] [place] [address] MycharCampuScene, [facility] Provider [facility] [place] [address] Questionnaire due soon Social History [...] documented as of this encounter Care Teams Auto Mechanic Apprentice Relationship Specialty Start Date End Date Chen Pop [address] [place] [address] PCP - General Internal Medicine 05/01/24 documented as of this encounter
--- OUTSIDE RECORDS SUMMARY | 2025-08-11 17:41 | XMS_ITS | Encounter Summary ---
Author Organization [facility] Address [address] [place] [address] Care Team Providers Care Cashier Host/Hostess Name Role Phone Chen Pop Primary Care Provider [phone] Encounter Details Date Type Department Care Team (Late st Contact Info) Description 01/16/2025 Aunt Bertha Message [facility] Surgery [address] [place] [address] MycharOPHTHONIX, [facility] Provider [address] [place] [address] Questionnaire due soon Social History Tobacco [...] on filedocumented in this encounter Care Teams Cashier Host/Hostess Relationship Specialty Start Date End Date Chen Pop [address] [place] [address] PCP - General Internal Medicine 05/01/24 documented as of this encounter
--- OUTSIDE RECORDS SUMMARY | 2025-08-11 17:41 | XMS_ITS | Clinical Summary ---
Author Organization [address] Address [address] [place] [phone] Phone Care Team Providers Care Phone Banker Name Role Phone Judy Mack MD Primary [...] Done Comments Depression Screening 09/09/2024 COVID-19 Vaccine ( - season) 2025 11/24/2020, 11/03/2020 Influenza Vaccine [...] age to complete this topic Care Teams Phone Banker Relationship Specialty Start Date End Date Judy Mack MD [facility] [address] [address] PCP - General Internal Medicine 06/25/17
--- OUTSIDE RECORDS SUMMARY | 2025-08-11 17:41 | XMS_ITS | Encounter Summary ---
Author Organization [facility] Address [address] [place] [address] Care Team Providers Care Client Finance Analyst Name Role Phone Judy Mack MD Primary Care Provider Encounter Details Date Type Department Care Team (Late st Contact Info) Description 07/31/2024 Lab Requisition [facility] - Main Lab [address] [facility] [place] [address] Brian Avalos MD [address] [place] [address] Encounter for other general examination Social History [...] Hospital LAB HEMETOLOGY METHOD 07/31/2024 8:37 AM [facility] RBC 2.90(L) 3.80 - 4.80 M/[facility] LAB HEMETOLOGY METHOD 07/31/2024 8:37 AM [facility] Hemoglobin 9.0(L) 11.5 - 16.0 g/dL LAB HEMETOLOGY METHOD 07/31/2024 8:37 AM [facility] Hematocrit 29.1(L) 35.0 - 47.0 % LAB HEMETOLOGY METHOD 07/31/2024 8:37 AM [facility] MCV 101.4(H) 79.0 - 98.0 FL LAB HEMETOLOGY METHOD 07/31/2024 8:37 AM [facility] MCH 31.4 27.0 - 32.0 pcg LAB HEMETOLOGY METHOD 07/31/2024 8:37 AM [facility] MCHC 30.9(L) 32.0 - 37.0 g/dL LAB HEMETOLOGY METHOD 07/31/2024 8:37 AM [facility] RDW 14.1 11.0 - 15.0 % LAB HEMETOLOGY METHOD 07/31/2024 8:37 AM [facility] Platelets 299 130 - 400 K/[facility] LAB HEMETOLOGY METHOD 07/31/2024 8:37 AM [facility] MPV 10.4 7.0 - 11.0 FL LAB HEMETOLOGY METHOD 07/31/2024 8:37 AM [facility] NRBC 0.0 <1.0 % LAB HEMETOLOGY METHOD 07/31/2024 8:37 AM [facility] NRBC Absolute 0.00 <0.10 K/[facility] LAB HEMETOLOGY METHOD 07/31/2024 8:37 AM [facility] Neutrophils Relative 59.5 % LAB HEMETOLOGY METHOD 07/31/2024 8:37 AM [facility] Lymphocytes Relative 25.3 % LAB HEMETOLOGY METHOD 07/31/2024 8:37 AM [facility] Monocytes Relative 11.8 % LAB HEMETOLOGY METHOD 07/31/2024 8:37 AM [facility] Eosinophils Relative 1.7 % LAB HEMETOLOGY METHOD 07/31/2024 8:37 AM [facility] Basophils Relative 0.6 % LAB HEMETOLOGY METHOD 07/31/2024 8:37 AM [facility] Immature Granulocytes Relative 1.1 % LAB HEMETOLOGY METHOD 07/31/2024 8:37 AM [facility] Neutrophils Absolute 2.82 1.50 - 7.00 K/mcL LAB HEMETOLOGY METHOD 07/31/2024 8:37 AM [facility] Lymphocytes Absolute 1.20 1.00 - 5.00 K/mcL LAB HEMETOLOGY METHOD 07/31/2024 8:37 AM [facility] Monocytes Absolute 0.56 0.20 - 1.00 K/mcL LAB HEMETOLOGY METHOD 07/31/2024 8:37 AM [facility] Eosinophils Absolute 0.08 0.00 - 0.50 K/mcL LAB HEMETOLOGY METHOD 07/31/2024 8:37 AM [facility] Basophils Absolute 0.03 0.00 - 0.20 K/mcL LAB HEMETOLOGY METHOD 07/31/2024 8:37 AM [facility] Immature Granulocytes Absolute 0.05(H) 0.00 - 0.03 K/mcL LAB HEMETOLOGY METHOD 07/31/2024 8:37 AM [facility] Blood Venous blood specimen / Unknown Venipuncture / Unknown 07/31/2024 4:39 AM EST 07/31/2024 7:14 AM EST us Brian Avalos MD LAB BLOOD ORDERABLES Final Res ult [facility] [address] [place] [address], [place] [phone] * (ABNORMAL) Basic metabolic panel (07/31/2024 4:39 AM EST) Sodium 141 133 - 145 mmol/L LAB CHEMISTRY METHOD 07/31/2024 8:55 AM EST [facility] Potassium 4.4 3.5 - 5.5 mmol/L LAB CHEMISTRY METHOD 07/31/2024 8:55 AM [facility] Chloride 107 96 - 110 mmol/L LAB CHEMISTRY METHOD 07/31/2024 8:55 AM [facility] CO2 30 21 - 32 mmol/L LAB CHEMISTRY METHOD 07/31/2024 8:55 AM [facility] Anion Gap 4 3 - 11 LAB CHEMISTRY METHOD 07/31/2024 8:55 AM [facility] Glucose 82 70 - 100 mg/dL LAB CHEMISTRY METHOD 07/31/2024 8:55 AM [facility] BUN 20 5 - 25 mg/dL LAB CHEMISTRY METHOD 07/31/2024 8:55 AM [facility] Creatinine 0.92 0.50 - 1.10 mg/dL LAB CHEMISTRY METHOD 07/31/2024 8:55 AM [facility] eGFR 64 >=60 mL/min/1. 73m2 LAB CHEMISTRY METHOD 07/31/2024 8:55 AM [facility] Comment:Calculation based on the Chronic Kidney Disease Epidemiology Collaboration (CKD-EPI) equation refit without adjustment for race. BUN/Creatinine Ratio 21.7 LAB CHEMISTRY METHOD 07/31/2024 8:55 AM [facility] Calcium 8.4(L) 8.5 - 10.5 mg/dL LAB CHEMISTRY METHOD 07/31/2024 8:55 AM EST [facility] Blood Venous blood specimen / Unknown Venipuncture / Unknown 07/31/2024 4:39 AM EST 07/31/2024 7:14 AM EST us Brian Avalos MD LAB BLOOD ORDERABLES Final Res ult [facility] [address] [place] [address], documented in this encounter Visit Diagnoses Diagnosis Encounter for other general examination documented in this encounter Care Teams Client Finance Analyst Relationship Specialty Start Date End Date Judy Mack MD [address] [facility] [address] [place] [address] PCP - General Internal Medicine 06/25/17 documented as of this encounter
--- OUTSIDE RECORDS SUMMARY | 2025-08-11 17:41 | XMS_ITS | Encounter Summary ---
Author Organization [facility] Address [address] [place] [address] Care Team Providers Care Electrical Systems Design Engineer Name Role Phone Chen Pop Primary Care Provider [phone] Encounter Details Date Type Department Care Team (Late st Contact Info) Description 10/27/2024 NGI Message Intial Department [address] [place] [address] Mychart, Generic Provider [address] [place] [address] Questionnaire Submission Social History Tobacco Use [...] on filedocumented in this encounter Care Teams Electrical Systems Design Engineer Relationship Specialty Start Date End Date Chen Pop [address] [place], [place] [phone] PCP - General Internal Medicine 05/01/24 documented as of this encounter
--- OUTSIDE RECORDS SUMMARY | 2025-08-11 17:41 | XMS_ITS | Encounter Summary ---
Author Organization [facility] Address [address] [place] [address] Care Team Providers Care Zipper Joiner Name Role Phone Chen Pop Primary Care Provider [phone] Encounter Details Date Type Department Care Team (Late st Contact Info) Description 10/27/2024 ZOOM TV Message Intial Department [address] [place] [address] Mychart, Generic Provider [address] [place] [address] Questionnaire Submission Social History Tobacco Use [...] on filedocumented in this encounter Care Teams Zipper Joiner Relationship Specialty Start Date End Date Chen Pop [address] [place], [place] [phone] PCP - General Internal Medicine 05/01/24 documented as of this encounter
--- OUTSIDE RECORDS SUMMARY | 2025-08-11 17:41 | XMS_ITS | Encounter Summary ---
Author Organization [facility] Address [address] [place] [address] Care Team Providers Care Drum Reel Cutter Name Role Phone Chen Pop Primary Care Provider [phone] Encounter Details Date Type Department Care Team (Late st Contact Info) Description 10/27/2024 [employer] Message Intial Department [address] [place] [address] Mychart, Generic Provider [address] [place] [address] Questionnaire Submission Social History Tobacco Use [...] filedocumented in this encounter Care Teams Drum Reel Cutter Relationship Specialty Start Date End Date Chen Pop [address] [place], [place] [phone] PCP - General Internal Medicine 05/01/24 documented as of this encounter
--- OUTSIDE RECORDS SUMMARY | 2025-08-11 17:41 | XMS_ITS | Encounter Summary ---
Author Organization [facility] Address [address] [place] [address] Care Team Providers Care Roof Bolter Name Role Phone Lorraine Popanna Primary Care Provider [phone] Encounter Details Date Type Department Care Team (Late st Contact Info) Description 05/24/2025 Str[employer] Message [facility] Surgery [address] [place] [address] MycharProfitect, [facility] Provider [facility] [place] [address] Questionnaire due soon Social History [...] documented as of this encounter Care Teams Roof Bolter Relationship Specialty Start Date End Date Chen Pop [address] [place] [address] PCP - General Internal Medicine 05/01/24 documented as of this encounter
--- OUTSIDE RECORDS SUMMARY | 2025-08-11 17:41 | XMS_ITS | Encounter Summary ---
Author Organization [facility] Address [address] [place] [address] Care Team Providers Care Supervisor Multifocal Lens Name Role Phone Lorraine Popanna Primary Care Provider [phone] Encounter Details Date Type Department Care Team (Late st Contact Info) Description 04/02/2025 Desi Hits Message [facility] Surgery [address] [place] [address] [employer]pex [employer], [facility] Provider [facility] [place] [address] Questionnaire due soon Social History [...] documented as of this encounter Care Teams Supervisor Multifocal Lens Relationship Specialty Start Date End Date Chen Pop 1960 [place] [address] PCP - General Internal Medicine 05/01/24 documented as of this encounter
--- OUTSIDE RECORDS SUMMARY | 2025-08-11 17:41 | XMS_ITS | Encounter Summary ---
Author Organization [facility] Address [address] [place] [address] Care Team Providers Care Teaching Assistant Name Role Phone Chen Pop Primary Care Provider [phone] Encounter Details Date Type Department Care Team (Late st Contact Info) Description 03/25/2025 backstitch Message [facility] Surgery [address] [place] [address] [employer], [facility] Provider [address] [place] [address] Questionnaire due soon Social History Tobacco [...] on filedocumented in this encounter Care Teams Teaching Assistant Relationship Specialty Start Date End Date Chen Pop 1960 [place] [address] PCP - General Internal Medicine 05/01/24 documented as of this encounter
--- OUTSIDE RECORDS SUMMARY | 2025-08-11 17:41 | XMS_ITS | Encounter Summary ---
Author Organization [facility] Address [address] [place] [address] Care Team Providers Care Mma Fighter Name Role Phone Chen Pop Primary Care Provider [phone] Encounter Details Date Type Department Care Team (Late st Contact Info) Description 01/11/2025 Aeluros Message Intial Department [address] [place] [address] Mychart, Generic Provider [address] [place] [address] Questionnaire Submission Social History Tobacco Use [...] on filedocumented in this encounter Care Teams Mma Fighter Relationship Specialty Start Date End Date Chen Pop 1960 [place], [place] [id number] PCP - General Internal Medicine 05/01/24 documented as of this encounter
--- OUTSIDE RECORDS SUMMARY | 2025-08-11 17:42 | XMS_ITS | Encounter Summary ---
Author Organization [facility] Address [address] [place] [address] Care Team Providers Care Battery Service Technician Name Role Phone Chen Pop Primary Care Provider [phone] Encounter Details Date Type Department Care Team (Late st Contact Info) Description 10/27/2024 Xi3 Message Intial Department [address] [place] [address] Mychart, Generic Provider [address] [place] [address] Questionnaire Submission Social History Tobacco Use [...] on filedocumented in this encounter Care Teams Battery Service Technician Relationship Specialty Start Date End Date Chen Pop 1960 [place], [place] [id number] PCP - General Internal Medicine 05/01/24 documented as of this encounter
--- OUTSIDE RECORDS SUMMARY | 2025-08-11 17:42 | XMS_ITS | Encounter Summary ---
Author Organization [facility] Address [address] [place] [address] Care Team Providers Care Upsetter Setter Up Name Role Phone Chen Pop Primary Care Provider [phone] Encounter Details Date Type Department Care Team (Late st Contact Info) Description 07/06/2024 [employer] Message Intial Department [address] [place] [address] Mychart, Generic Provider [address] [place] [address] Questionnaire Submission Social History Tobacco Use [...] on filedocumented in this encounter Care Teams Upsetter Setter Up Relationship Specialty Start Date End Date Chen Pop 1960 [place], [place] [address] PCP - General Internal Medicine 05/01/24 documented as of this encounter
--- OUTSIDE RECORDS SUMMARY | 2025-08-11 17:42 | XMS_ITS | Encounter Summary ---
Author Organization [facility] Address [address] [place] [address] Care Team Providers Care Wire Weaver Cloth Name Role Phone Chen Pop Primary Care Provider [phone] Encounter Details Date Type Department Care Team (Late st Contact Info) Description 07/06/2024 [employer] Message Intial Department [address] [place] [address] Mychart, Generic Provider [address] [place] [address] Questionnaire Submission Social History Tobacco Use [...] on filedocumented in this encounter Care Teams Wire Weaver Cloth Relationship Specialty Start Date End Date Chen Pop 1960 [place], [place] [phone] PCP - General Internal Medicine 05/01/24 documented as of this encounter
--- OUTSIDE RECORDS SUMMARY | 2025-08-11 17:42 | XMS_ITS | Encounter Summary ---
Author Organization [facility] Address [address] [place] [address] Care Team Providers Care Compensation Specialist Name Role Phone Chen Pop Primary Care Provider [phone] Encounter Details Date Type Department Care Team (Late st Contact Info) Description 07/06/2024 [employer] Message Intial Department [address] [place] [address] Mychart, Generic Provider [address] [place] [address] Questionnaire Submission Social History Tobacco Use [...] on filedocumented in this encounter Care Teams Compensation Specialist Relationship Specialty Start Date End Date Chen Pop 1960 [place], [place] [id number] PCP - General Internal Medicine 05/01/24 documented as of this encounter
--- OUTSIDE RECORDS SUMMARY | 2025-08-11 17:42 | XMS_ITS | Encounter Summary ---
Author Organization [facility] Address [address] [place] [address] Care Team Providers Care Parquet Floor Layer'S Helper Name Role Phone Chen Pop Primary Care Provider [phone] Encounter Details Date Type Department Care Team (Late st Contact Info) Description 10/26/2024 [employer] Message Intial Department [address] [place] [address] Mychart, Generic Provider [address] [place] [address] Questionnaire Submission Social History Tobacco Use [...] on filedocumented in this encounter Care Teams Parquet Floor Layer'S Helper Relationship Specialty Start Date End Date Chen Pop 1960 [place], [place] [phone] PCP - General Internal Medicine 05/01/24 documented as of this encounter
--- OUTSIDE RECORDS SUMMARY | 2025-08-11 17:42 | XMS_ITS | Encounter Summary ---
Author Organization [facility] Address [address] [place] [address] Care Team Providers Care Supervisor Dials Name Role Phone Chen Pop Primary Care Provider [phone] Encounter Details Date Type Department Care Team (Late st Contact Info) Description 10/26/2024 [employer] Message [facility] Surgery [address] [place] [address] [employer]qua [employer], [facility] Provider [address] [place] [address] Questionnaire due soon Social History Tobacco [...] filedocumented in this encounter Care Teams Supervisor Dials Relationship Specialty Start Date End Date Chen Pop 1960 [place] [address] PCP - General Internal Medicine 05/01/24 documented as of this encounter
--- OUTSIDE RECORDS SUMMARY | 2025-08-11 17:42 | XMS_ITS | Encounter Summary ---
Author Organization [facility] Address [address] [place] [address] Care Team Providers Care Sharepoint Manager Name Role Phone Chen Pop Primary Care Provider [phone] Encounter Details Date Type Department Care Team (Late st Contact Info) Description 07/23/2025 Plan[employer] Message [facility] Surgery [address] [place] [address] MycharHaolianluo, [facility] Provider [address] [place] [address] Questionnaire due soon Social History Tobacco [...] documented as of this encounter Care Teams Sharepoint Manager Relationship Specialty Start Date End Date Chen Pop 1960 [place] [address] PCP - General Internal Medicine 05/01/24 documented as of this encounter
--- OUTSIDE RECORDS SUMMARY | 2025-08-11 17:42 | XMS_ITS | Encounter Summary ---
Author Organization [facility] Address [address] [place] [address] Care Team Providers Care Physician Assistant Certified Name Role Phone Judy Mack MD Primary Care Provider [phone] Encounter Details Date Type Department Care Team (Late st Contact Info) Description 07/29/2024 Lab Requisition [facility] - Main Lab [address] [place] [address] Brian Avalos MD [address] [place] [address] Other specified arthritis, unspecified site Social History [...] AM EST) WBC 5.3 4.8 - 10.8 K/[facility] LAB HEMETOLOGY METHOD 07/29/2024 9:24 AM [facility] LAB RBC 2.90(L) 3.80 - 4.80 M/mcL LAB HEMETOLOGY METHOD 07/29/2024 9:24 AM [facility] LAB Hemoglobin 9.2(L) 11.5 - 16.0 g/dL LAB HEMETOLOGY METHOD 07/29/2024 9:24 AM [facility] LAB Hematocrit 29.5(L) 35.0 - 47.0 % LAB HEMETOLOGY METHOD 07/29/2024 9:24 AM [facility] LAB MCV 100.7(H) 79.0 - 98.0 FL LAB HEMETOLOGY METHOD 07/29/2024 9:24 AM [facility] LAB MCH 31.4 27.0 - 32.0 pcg LAB HEMETOLOGY METHOD 07/29/2024 9:24 AM [facility] LAB MCHC 31.2(L) 32.0 - 37.0 g/dL LAB HEMETOLOGY METHOD 07/29/2024 9:24 AM [facility] LAB RDW 14.3 11.0 - 15.0 % LAB HEMETOLOGY METHOD 07/29/2024 9:24 AM [facility] LAB Platelets 226 130 - 400 K/mcL LAB HEMETOLOGY METHOD 07/29/2024 9:24 AM [facility] LAB MPV 10.7 7.0 - 11.0 FL LAB HEMETOLOGY METHOD 07/29/2024 9:24 AM [facility] LAB NRBC 0.0 <1.0 % LAB HEMETOLOGY METHOD 07/29/2024 9:24 AM [facility] LAB NRBC Absolute 0.00 <0.10 K/mcL LAB HEMETOLOGY METHOD 07/29/2024 9:24 AM [facility] LAB Blood Venous blood specimen / Unknown Venipuncture / Unknown 07/29/2024 5:32 AM EST 07/29/2024 8:28 AM EST us Brian Avalos MD LAB BLOOD ORDERABLES Final Res ult [facility] LAB [address] [place] [address], [place] [phone] * (ABNORMAL) Comprehensive metabolic panel (07/29/2024 5:32 AM EST) Sodium 141 133 - 145 mmol/L LAB CHEMISTRY METHOD 07/29/2024 10:01 AM [facility] LAB Potassium 4.2 3.5 - 5.5 mmol/L LAB CHEMISTRY METHOD 07/29/2024 10:01 AM [facility] LAB Chloride 104 96 - 110 mmol/L LAB CHEMISTRY METHOD 07/29/2024 10:01 AM [facility] LAB CO2 31 21 - 32 mmol/L LAB CHEMISTRY METHOD 07/29/2024 10:01 AM [facility] LAB Anion Gap 6 3 - 11 LAB CHEMISTRY METHOD 07/29/2024 10:01 AM [facility] LAB Glucose 91 70 - 100 mg/dL LAB CHEMISTRY METHOD 07/29/2024 10:01 AM [facility] LAB BUN 22 5 - 25 mg/dL LAB CHEMISTRY METHOD 07/29/2024 10:01 AM [facility] LAB Creatinine 0.87 0.50 - 1.10 mg/dL LAB CHEMISTRY METHOD 07/29/2024 10:01 AM [facility] LAB eGFR 69 >=60 mL/min/1. 73m2 LAB CHEMISTRY METHOD 07/29/2024 10:01 AM [facility] LAB Comment:Calculation based on the Chronic Kidney Disease Epidemiology Collaboration (CKD-EPI) equation refit without adjustment for race. BUN/Creatinine Ratio 25.3 LAB CHEMISTRY METHOD 07/29/2024 10:01 AM [facility] LAB Calcium 8.8 8.5 - 10.5 mg/dL LAB CHEMISTRY METHOD 07/29/2024 10:01 AM [facility] LAB AST (SGOT) 18 10 - 42 unit/L LAB CHEMISTRY METHOD 07/29/2024 10:01 AM [facility] LAB ALT (SGPT) 14 10 - 60 unit/L LAB CHEMISTRY METHOD 07/29/2024 10:01 AM [facility] LAB Alkaline Phosphatase 59 42 - 121 unit/L LAB CHEMISTRY METHOD 07/29/2024 10:01 AM [facility] LAB Total Protein 5.2(L) 6.0 - 8.0 g/dL LAB CHEMISTRY METHOD 07/29/2024 10:01 AM [facility] LAB Albumin 2.3(L) 3.2 - 5.0 g/dL LAB CHEMISTRY METHOD 07/29/2024 10:01 AM [facility] LAB Total Bilirubin 0.5 0.0 - 1.4 mg/dL LAB CHEMISTRY METHOD 07/29/2024 10:01 AM [facility] LAB Blood Venous blood specimen / Unknown Venipuncture / Unknown 07/29/2024 5:32 AM EST 07/29/2024 8:28 AM EST us Brian Avalos MD LAB BLOOD ORDERABLES Final Res ult [facility] LAB [address] [place] [address], documented in this encounter Visit Diagnoses Diagnosis Other specified arthritis, unspecified site documented in this encounter Care Teams Physician Assistant Certified Relationship Specialty Start Date End Date Judy Mack MD [address] [phone] PCP - General Internal Medicine 06/25/17 documented as of this encounter
--- OUTSIDE RECORDS SUMMARY | 2025-08-11 17:42 | XMS_ITS | Data Portability ---
Author Organization [facility] [address] Address [address] [place] [address] Care Team Providers Care Endoscopy Support Specialist Name Role Phone KIEL JACKSON Primary Care Provider [phone] DOMINIC WINN Credit Union Manager Unavailable Assessment No assessment recorded. Plan of Treatment Reminders Order Date Submit Date Provider Last Modified By Organization Details Last Modified Time Details Appointments None recorded. Lab None recorded. Referral None recorded. Procedures None recorded. Surgeries None recorded. Imaging None recorded. Medication Orders prednisone 20 mg tablet 2022 023 [facility]acy #[id number], [address] [place], [address], 18:14:52 Allergy Relief (fluticason e) 50 mcg/actuati on nasal spray,suspe nsion 2022 023 [facility]/Pharmacy #[id number], [address] [place], [address], 18:14:53 benzonatate 100 mg capsule 2022 023 [facility]/Pharmacy #[id number], [address] [place], [address], 18:14:53 Patient TargetsNo targets recorded. Patient Instructions Encounter Date Encounter Id Patient Instructions Last Modified By Organization Details Last Modified Time 11/18/2022 [id number] earache: care instructions Not available 11/18/2022 18:14:50 [...] care for yourself at home? Take an zsoi-zuj-rzfngsu pain medicine. Avoid Ibuprofen, Aleve and Aspirin if . If the doctor prescribed antibiotics, take them as directed. Do not stop taking them just because you feel better. You need to take the full course of antibiotics. Be careful when taking kvco-gef-vlmndql cold or influenza (flu) medicines and Tylenol [...] Address Organization Details Recorded Time Multiple myeloma 424339766 Active 2022 ROSEMARY Nelson [facility] 3 17:53:44 Hypertensive disorder 00107639 Active 2022 JOHN ISABEL [facility] [...] mass index (BMI) Body weight Oxygen saturation Heart rate Respiratory rate Body temperature Pain severity - 0-10 verbal numeric rating [Score] - Reported Systolic And Diastolic Provider Name and Address Organization Details Last Updated DateTime 3 165.1 cm 25 kg/m2 18680.8 6 g 96 % 72 /min 16 /min 98.2 [degF] 10 129/79 mm[Hg] JOHN CHALO PA - [facility] 3 17:57:14 Social History Question Answer Notes LastModified by Zimory Details LastModified Time Tobacco Smoking Status Never Smoker JOHN ISABEL null, [place] - [facility] 11/18/2022 17:54:47 Have You Recently Traveled Abroad? No Information not available 11/18/2022 Sex: Unknown Functional Status Question Answer Note LastModified by Zimory Details LastModified Time Do you use any [...] Diagnosis SNOMED-CT Code Diagnosis ICD10 Code Diagnosis IMO Codes Diagnosis Note [id number] [address] [place] [address] 03/25/2016 11:14:20 03/25/2016 11:58:56 [id number] [address] [place] [address] 03/02/2018 16:03:13 03/02/2018 16:52:53 [id number] [address] [address] [place] [address] 07/22/2021 15:33:18 07/22/2021 16:11:17 [id number] [address] [place] [address] 01/31/2018 09:28:34 01/31/2018 10:29:41 [id number] [address] [place] [address] 12/01/2018 18:58:33 12/01/2018 19:26:38 [id number] [address] [facility] [place] [address] 09/03/2016 11:54:52 09/03/2016 13:42:24 [id number] [address] [place] [address] 08/31/2020 11:01:29 08/31/2020 11:34:54 [id number] [address] [place] [address] 05/02/2016 10:40:45 05/02/2016 14:04:40 [id number] [address] [place] [address] 06/18/2019 11:15:53 06/18/2019 11:48:03 [id number] [address] [place] [address] 12/16/2016 17:56:52 12/16/2016 18:36:33 [id number] [address] [place] [address] 08/08/2018 08:24:52 08/08/2018 09:05:11 [id number] [address] [place] [address] 06/26/2017 13:50:56 06/26/2017 14:55:17 [id number] [address] [place] [address] 03/25/2018 09:24:49 03/25/2018 10:44:58 [id number] Tuan Jacques NP [address] [facility] [place] [address] 11/18/2022 13:19:00 11/18/2022 18:19:29 Acute sinusitis 63967703 J01.90 Health Concerns Section Related Observation LastModified by Organization Detai ls LastModified Time None Recorded Concern Status LastModified by Organization Details LastModified Time None Recorded Advance Directives Directive None Recorded Payers Insurance Date Sequence Insurance Name Policy Number Policy Rod Covered Member ID Rod Member ID Guarantor Name 11/18/2022 1 [place]: [employer] Lillian Wallis Min [id number] Lillian Copeland 11/18/2022 2 [facility] [place] [id number] Lillian Copeland [id number] Lillian Copeland 08/08/2022 [employer] [facility]Medexp ress Occ Med Generic (Move To Hold) [[id number]] Lillian Copeland Notes Date Note Type Note Provider Name and Address Organization Details Recorded Time 3 text/html Ear Pain Brief HPIReported by PatientHPIFor location, patient reportspain radiates to neckbut reportsbilateral. For quality, patient reportsaching painandsharp pain. For context, patient reportsrecent ear infection. For associated symptoms, patient reportscough,nasal congestion, andnasal discharge. For onset/timing, patient reportsintermittent painandgradual onset. For duration, patient reportsoccurs dailyandsensation/episod e variable length. For severity, patient reportsgetting worseandcurrent pain 5/10. For alleviating factors, patient reportsototopical antibiotics: ___andnasal steroid spray. For aggravating factors, patient reportssinus infections,allergies, andirrigation of ear. CongestionReported by Patientnasal congestion with post nasal drip x 3 days. denies nay fever or fever with chills. no SOB or respiratory distress. Tuan Jacques NP [address] [place], [address], [place] - [facility] 11/18/2022 18:17:58 OBGyn Episode No OBEpisode recorded.
--- OUTSIDE RECORDS SUMMARY | 2025-08-11 17:42 | XMS_ITS | Encounter Summary ---
Author Organization [facility] Address [address] [place] [address] Care Team Providers Care Chief Dispatcher Name Role Phone Chen Pop Primary Care Provider [phone] Encounter Details Date Type Department Care Team (Late st Contact Info) Description 10/24/2024 itzat Message Intial Department [address] [address] Mychart, Generic Provider [address] [place] [address] Questionnaire Submission Social History Tobacco Use [...] on filedocumented in this encounter Care Teams Chief Dispatcher Relationship Specialty Start Date End Date Chen Pop 1960 [place], [place] [address] PCP - General Internal Medicine 05/01/24 documented as of this encounter
--- OUTSIDE RECORDS SUMMARY | 2025-08-11 17:42 | XMS_ITS | Encounter Summary ---
Author Organization [facility] Address [address] [place] [address] Care Team Providers Care Model Home Sales Greeter Name Role Phone Judy Mack MD Primary Care Provider [phone] Encounter Details Date Type Department Care Team (Late st Contact Info) Description 07/23/2024 Lab Requisition [facility] - Main Lab [address] [facility] [place] [phone] Brian Avalos MD [address] [place] [address] Pain in right knee Social History Tobacco [...] knee documented in this encounter Care Teams Model Home Sales Greeter Relationship Specialty Start Date End Date Judy Mack MD [address] [facility] [address] [place] [address] PCP - General Internal Medicine 06/25/17 documented as of this encounter
--- OUTSIDE RECORDS SUMMARY | 2025-08-11 17:42 | XMS_ITS | Encounter Summary ---
Author Organization [facility] Address [address] [place] [address] Care Team Providers Care Microsoft Exchange Architect Name Role Phone Chen Pop Primary Care Provider [phone] Encounter Details Date Type Department Care Team (Late st Contact Info) Description 07/06/2024 Geostellar Message Intial Department [address] [place] [address] Mychart, Generic Provider [address] [place] [address] Questionnaire Submission Social History Tobacco Use [...] on filedocumented in this encounter Care Teams Microsoft Exchange Architect Relationship Specialty Start Date End Date Chen Pop 1960 [place], [place] [address] PCP - General Internal Medicine 05/01/24 documented as of this encounter
--- OUTSIDE RECORDS SUMMARY | 2025-08-11 17:42 | XMS_ITS | Encounter Summary ---
Author Organization [facility] Address [address] [place] [address] Care Team Providers Care Water Resources Program Director Name Role Phone Chen Pop Primary Care Provider [phone] Encounter Details Date Type Department Care Team (Late st Contact Info) Description 10/24/2024 Xinrong Message Intial Department [address] [place] [address] Mychart, Generic Provider [address] [place] [address] Questionnaire Submission Social History Tobacco Use [...] on filedocumented in this encounter Care Teams Water Resources Program Director Relationship Specialty Start Date End Date Chen Pop 1960 [place], [place] [address] PCP - General Internal Medicine 05/01/24 documented as of this encounter
--- OUTSIDE RECORDS SUMMARY | 2025-08-11 17:42 | XMS_ITS | Encounter Summary ---
Author Organization [facility] Address [address] [place] [address] Care Team Providers Care Physical Security Engineer Name Role Phone Chen Pop Primary Care Provider [phone] Encounter Details Date Type Department Care Team (Late st Contact Info) Description 03/09/2025 [employer] Message [facility] Surgery [address] [place] [address] [employer], [facility] Provider [address] [place] [address] Questionnaire due soon Social History Tobacco [...] on filedocumented in this encounter Care Teams Physical Security Engineer Relationship Specialty Start Date End Date Chen Pop 1960 [place] [address] PCP - General Internal Medicine 05/01/24 documented as of this encounter
--- OUTSIDE RECORDS SUMMARY | 2025-08-11 17:42 | XMS_ITS | Encounter Summary ---
Author Organization [facility] Address [address] [place] [address] Care Team Providers Care Diesel Crane Operator Name Role Phone Judy Mack MD Primary Care Provider Encounter Details Date Type Department Care Team (Late st Contact Info) Description 07/23/2024 Lab Requisition [facility] - Main Lab [address] [facility] [place] [address] Brian Avalos MD [address] [place] [address] Pain in right knee Social History Tobacco [...] CBC auto differential (07/23/2024 7:18 AM EST) [facility] WBC 7.5 4.8 - 10.8 K/mcL LAB HEMETOLOGY METHOD 07/23/2024 9:03 AM [facility] RBC 3.40(L) 3.80 - 4.80 M/mcL LAB HEMETOLOGY METHOD 07/23/2024 9:03 AM [facility] Hemoglobin 11.0(L) 11.5 - 16.0 g/dL LAB HEMETOLOGY METHOD 07/23/2024 9:03 AM [facility] Hematocrit 34.0(L) 35.0 - 47.0 % LAB HEMETOLOGY METHOD 07/23/2024 9:03 AM [facility] MCV 99.4(H) 79.0 - 98.0 FL LAB HEMETOLOGY METHOD 07/23/2024 9:03 AM [facility] MCH 32.2(H) 27.0 - 32.0 pcg LAB HEMETOLOGY METHOD 07/23/2024 9:03 AM [facility] MCHC 32.4 32.0 - 37.0 g/dL LAB HEMETOLOGY METHOD 07/23/2024 9:03 AM [facility] RDW 13.6 11.0 - 15.0 % LAB HEMETOLOGY METHOD 07/23/2024 9:03 AM [facility] Platelets 185 130 - 400 K/mcL LAB HEMETOLOGY METHOD 07/23/2024 9:03 AM [facility] MPV 10.4 7.0 - 11.0 FL LAB HEMETOLOGY METHOD 07/23/2024 9:03 AM [facility] NRBC 0.0 <1.0 % LAB HEMETOLOGY METHOD 07/23/2024 9:03 AM [facility] NRBC Absolute 0.00 <0.10 K/mcL LAB HEMETOLOGY METHOD 07/23/2024 9:03 AM [facility] Neutrophils Relative 76.7 % LAB HEMETOLOGY METHOD 07/23/2024 9:03 AM [facility] Lymphocytes Relative 10.0 % LAB HEMETOLOGY METHOD 07/23/2024 9:03 AM [facility] Monocytes Relative 11.9 % LAB HEMETOLOGY METHOD 07/23/2024 9:03 AM [facility] Eosinophils Relative 0.4 % LAB HEMETOLOGY METHOD 07/23/2024 9:03 AM [facility] Basophils Relative 0.3 % LAB HEMETOLOGY METHOD 07/23/2024 9:03 AM [facility] Immature Granulocytes Relative 0.7 % LAB HEMETOLOGY METHOD 07/23/2024 9:03 AM [facility] Neutrophils Absolute 5.76 1.50 - 7.00 K/mcL LAB HEMETOLOGY METHOD 07/23/2024 9:03 AM [facility] Lymphocytes Absolute 0.75(L) 1.00 - 5.00 K/mcL LAB HEMETOLOGY METHOD 07/23/2024 9:03 AM [facility] Monocytes Absolute 0.89 0.20 - 1.00 K/mcL LAB HEMETOLOGY METHOD 07/23/2024 9:03 AM [facility] Eosinophils Absolute 0.03 0.00 - 0.50 K/mcL LAB HEMETOLOGY METHOD 07/23/2024 9:03 AM [facility] Basophils Absolute 0.02 0.00 - 0.20 K/mcL LAB HEMETOLOGY METHOD 07/23/2024 9:03 AM [facility] Immature Granulocytes Absolute 0.05(H) 0.00 - 0.03 K/mcL LAB HEMETOLOGY METHOD 07/23/2024 9:03 AM [facility] Blood Venous blood specimen / Unknown Venipuncture / Unknown 07/23/2024 7:18 AM EST 07/23/2024 8:08 AM EST Brian Avalos MD LAB BLOOD ORDERABLES Final Res ult [facility] [address] [place] [address], [place] [phone] * Magnesium (07/23/2024 7:18 AM EST) Pathologist [facility] Magnesium 2.1 1.9 - 2.6 mg/dL LAB CHEMISTRY METHOD 07/23/2024 9:38 AM EST [facility] Blood Venous blood specimen / Unknown Venipuncture / Unknown 07/23/2024 7:18 AM EST 07/23/2024 8:08 AM EST Brian Avalos MD LAB BLOOD ORDERABLES Final Res ult Performing Organization Address City/[facility]/ZIP Co de Phone Number [facility] [address] [place] [address], [place] [phone] * (ABNORMAL) Comprehensive metabolic panel (07/23/2024 7:18 AM EST) [facility] Sodium 136 133 - 145 mmol/L LAB CHEMISTRY METHOD 07/23/2024 9:38 AM [facility] Potassium 4.3 3.5 - 5.5 mmol/L LAB CHEMISTRY METHOD 07/23/2024 9:38 AM [facility] Chloride 103 96 - 110 mmol/L LAB CHEMISTRY METHOD 07/23/2024 9:38 AM EST [facility] CO2 28 21 - 32 mmol/L LAB CHEMISTRY METHOD 07/23/2024 9:38 AM [facility] Anion Gap 5 3 - 11 LAB CHEMISTRY METHOD 07/23/2024 9:38 AM EST [facility] Glucose 92 70 - 100 mg/dL LAB CHEMISTRY METHOD 07/23/2024 9:38 AM [facility] BUN 14 5 - 25 mg/dL LAB CHEMISTRY METHOD 07/23/2024 9:38 AM [facility] Creatinine 0.96 0.50 - 1.10 mg/dL LAB CHEMISTRY METHOD 07/23/2024 9:38 AM [facility] eGFR 61 >=60 mL/min/1. 73m2 LAB CHEMISTRY METHOD 07/23/2024 9:38 AM [facility] Comment:Calculation based on the Chronic Kidney Disease Epidemiology Collaboration (CKD-EPI) equation refit without adjustment for race. BUN/Creatinine Ratio 14.6 LAB CHEMISTRY METHOD 07/23/2024 9:38 AM [facility] Calcium 7.8(L) 8.5 - 10.5 mg/dL LAB CHEMISTRY METHOD 07/23/2024 9:38 AM [facility] AST (SGOT) 11 10 - 42 unit/L LAB CHEMISTRY METHOD 07/23/2024 9:38 AM [facility] ALT (SGPT) 11 10 - 60 unit/L LAB CHEMISTRY METHOD 07/23/2024 9:38 AM [facility] Alkaline Phosphatase 49 42 - 121 unit/L LAB CHEMISTRY METHOD 07/23/2024 9:38 AM [facility] Total Protein 5.3(L) 6.0 - 8.0 g/dL LAB CHEMISTRY METHOD 07/23/2024 9:38 AM [facility] Albumin 2.5(L) 3.2 - 5.0 g/dL LAB CHEMISTRY METHOD 07/23/2024 9:38 AM [facility] Total Bilirubin 0.4 0.0 - 1.4 mg/dL LAB CHEMISTRY METHOD 07/23/2024 9:38 AM [facility] Blood Venous blood specimen / Unknown Venipuncture / Unknown 07/23/2024 7:18 AM EST 07/23/2024 8:08 AM EST us Brian Avalos MD LAB BLOOD ORDERABLES Final Res ult [facility] ([facility] [address] [place] [address], documented in this encounter Visit Diagnoses Diagnosis Pain in right knee documented in this encounter Care Teams Diesel Crane Operator Relationship Specialty Start Date End Date Judy Mack MD [address] [address] PCP - General Internal Medicine 06/25/17 documented as of this encounter
--- OUTSIDE RECORDS SUMMARY | 2025-08-11 17:42 | XMS_ITS | Clinical Summary ---
Author Organization [facility] Address [address] [place] [address] Care Team Providers Care Saw Feeder Name Role Phone Chen Pop Primary Care Provider [phone] Allergies No known active allergies Medications DULoxetine [...] Encounters Date Type Department Care Team Description 07/23/2025 PriceSpott Message [facility] Surgery [address] [place] [address] angelMDharDataSphere, Generic Provider Questionnaire due soon 05/24/2025 newScaleharDataSphere Message [address] [address] Zenbox, Generic Provider Questionnaire due soon from Last [...] Social Drivers of Health Annual Screening 09/09/2024 Influenza Vaccine (#1) 2025 , 06/21/2024, 06/16/2023, Additional history exists COVID-19 Vaccine ( season) 2025 06/21/2024, 06/16/2023, 06/20/2022, Additional history exists Basic [...] Mace RN Medical Devices Implanted Type Area Charging Machine Operator Device Identifier Shelf Expiration Date Model / Serial / Lot Patella Asymmetric Metal Backed Tritanium Size A32 [id number] Tritanium - [id number] Implanted:Qty: 1 on 07/20/2024 by Saqib Santos J.P., MD at [facility] Implant Right: Knee CHRISTIE [id number] 04/09/2029 5552-L-32 0 / / [id number] Insert Tibial Bearing Size 4 11mm Triathlon X3 - [id number] Implanted:Qty: 1 on 07/20/2024 by Saqib Santos J.P., MD at [facility] Implant Right: Knee CHRISTIE [id number] 03/27/2029 5531-G-41 1-E / / [id number] Component Femoral Knee Cruciate Retaining Right Size 4 - [id number] Implanted:Qty: 1 on 07/20/2024 by Saqib Santos J.P., MD at [facility] Implant Right: Knee CHRISTIE [id number] 04/25/2029 5517-F-40 2 / / [id number] Baseplate Tritanium Size 4 Triathlon - [id number] Implanted:Qty: 1 on 07/20/2024 by Saqib Santos J.P., MD at [facility] Implant Right: Knee CHRISTIE [id number] 03/02/2029 5536-B-40 0 / / [id number] Component Femoral Cruciate Retaining Beaded Left Size 4 Triathlon - [id number] Implanted:Qty: 1 on 11/09/2024 by Saqib Santos J.P., MD at [facility] Implant Left: Knee CHRISTIE [id number] 01/22/2029 5517-F-40 1 / / [id number] Baseplate Tritanium Size 4 Triathlon - [id number] Implanted:Qty: 1 on 11/09/2024 by Saqib Santos J.P., MD at [facility] Implant Left: Knee CHRISTIE [id number] 08/27/2029 5536-B-40 0 / / [id number] Patella Asymmetric Metal Backed Tritanium Size A32 [id number] Tritanium - [id number] Implanted:Qty: 1 on 11/09/2024 by Saqib Santos J.P., MD at [facility] Implant Left: Knee CHRISTIE [id number] 01/21/2029 5552-L-32 0 / / [id number] Tibial Bearing Insert Size 4 9mm Triathlon - [id number] Implanted:Qty: 1 on 11/09/2024 by Saqib Santos J.P., MD at [facility] Implant Left: Knee CHRISTIE [id number] 06/18/2029 5531-G-40 9-E / / [id number] Procedures * Due to [facility] law, this organization might not be sharing negative HIV tests. Procedure Name Priority Date/Time Associated Diagnosis Comments BASIC METABOLIC PANEL Routine 11/10/2024 10:17 AM EST from Last 3 Months or Most Recently Relevant to Health Maintenance Results * Due to [place] [employer] law, this organization might not be sharing negative HIV tests. * (ABNORMAL) Basic Metabolic Panel (11/10/2024 10:17 AM EST) NA 135 135 - 145 mmol/L 11/10/2024 11:10 AM EST [facility] K 4.7 3.5 - 5.3 mmol/L 11/10/2024 11:10 AM EST [facility] Cl 100 98 - 107 mmol/L 11/10/2024 11:10 AM EST [facility] CO2 25 22 - 32 mmol/L 11/10/2024 11:10 AM EST [facility] BUN 17 7 - 23 mg/dL 11/10/2024 11:10 AM EST [facility] Creatinine 1.13 0.50 - 1.20 mg/dL 11/10/2024 11:10 AM EST [facility] Glucose 256(H) 65 - 99 mg/dL 11/10/2024 11:10 AM EST [facility] Calcium 8.7 8.6 - 10.5 mg/dL 11/10/2024 11:10 AM EST [facility] Anion Gap 10 5 - 15 11/10/2024 11:10 AM EST [facility] eGFR 50(L) >=60 mL/min/1. 73m2 11/10/2024 11:10 AM EST [facility] Comment:The estimated glomer ular [...] MD LAB BLOOD ORDERABLES Final R esult [facility] [address] [place] [address], from Last 3 Months or Most Recently Relevant to Health Maintenance Additional Health Concerns Active Problems Noted Date Diagnosed Date Autogenerated Problem 05/17/2025 Insurance MEDICARE MEDICARE Member Subscriber Plan / Payer (Ef fective 2011-Present) Name:Lillian Copeland Member ID:[id number] Relation to Subscriber:Self Name:Lillian Copeland Subscriber ID:[id number] Payer ID:[id number] Group ID:Not on file Type:Not on file Address: [address] Advance Directives Documents on File Type Date Recorded Patient Electric Distribution Engineer Expl anation Health Care Proxy 07/02/2024 1:51 PM [place] Health Care Proxy * Full Code (Latest Code Status on File) Date Activated Date Inactivated Comments 11/09/2024 12:05 PM 11/12/2024 6:25 PM * Full Code Date Activated Date Inactivated Comments 07/20/2024 12:55 PM 07/22/2024 3:45 PM Care Teams Saw Feeder Relationship Specialty Start Date End Date Chen Pop [address] [place] [address] PCP - General Internal Medicine 05/01/24
--- OUTSIDE RECORDS SUMMARY | 2025-08-11 17:42 | XMS_ITS | Encounter Summary ---
Author Organization [facility] Address [address] [place] [address] Care Team Providers Care Emt I/85 Name Role Phone Chen Pop Primary Care Provider [phone] Encounter Details Date Type Department Care Team (Late st Contact Info) Description 07/06/2024 JackBe Message Intial Department [address] [place] [address] Mychart, Generic Provider [address] [place] [address] Questionnaire Submission Social History Tobacco Use [...] on filedocumented in this encounter Care Teams Emt I/85 Relationship Specialty Start Date End Date Chen Pop [address] [place], [place] [id number] PCP - General Internal Medicine 05/01/24 documented as of this encounter
--- OUTSIDE RECORDS SUMMARY | 2025-08-11 17:42 | XMS_ITS | Encounter Summary ---
Author Organization [facility] Address [address] [place] [address] Care Team Providers Care Medical Insurance Claims Specialist Name Role Phone Chen Pop Primary Care Provider [phone] Encounter Details Date Type Department Care Team (Late st Contact Info) Description 07/06/2024 Agent Video Intelligence Message Intial Department [address] [place] [address] Mychart, Generic Provider [address] [place] [address] Questionnaire Submission Social History Tobacco Use [...] on filedocumented in this encounter Care Teams Medical Insurance Claims Specialist Relationship Specialty Start Date End Date Chen Pop [address] [place], [place] [id number] PCP - General Internal Medicine 05/01/24 documented as of this encounter
== END 2025-08-11 14:47 | disposition home or self-care (01) ==
LOC: HO.HMGCX 14:46
PROVIDERS: PCP Internal Medicine; Visit Provider Internal Medicine
DX: M17.11 Unilateral primary osteoarthritis, right knee (principal); M25.511 Pain in right shoulder; S29.9XXA Unspecified injury of thorax, initial encounter
CPT/HCPCS: 71101; 73030; 73560

== ENCOUNTER → 2025-08-11 14:49 | Outpatient (BNV) | payer MEDICARE, OTHER, SELFPAY | PROVIDERS: PCP Internal Medicine; Visit Provider Radiology Diagnostic Radiology | DX: S29.9XXA Unspecified injury of thorax, initial encounter (principal); M19.011 Primary osteoarthritis, right shoulder | CPT/HCPCS: 71101; 73030 ==

== ENCOUNTER 2025-08-26 06:10 | Day surgery (SDC) | payer MEDICARE, OTHER, SELFPAY ==
--- OUTSIDE RECORDS SUMMARY | 2025-08-13 18:36 | XMS_ITS | Encounter Summary ---
Author Organization [facility] Address [address] [place] [address] Care Team Providers Care Family Practice Physician Name Role Phone Chen Pop Primary Care Provider [phone] Encounter Details Date Type Department Care Team (Late st Contact Info) Description 02/01/2025 Group Commerce Message [facility] Surgery [address] [place] [address] MycharKeelvar, [facility] Provider [address] [place] [address] Questionnaire due soon Social History Tobacco [...] on filedocumented in this encounter Care Teams Family Practice Physician Relationship Specialty Start Date End Date Chen Pop [address] [place] [address] PCP - General Internal Medicine 05/01/24 documented as of this encounter
--- OUTSIDE RECORDS SUMMARY | 2025-08-13 18:36 | XMS_ITS | Encounter Summary ---
Author Organization [facility] Address [address] [place] [address] Care Team Providers Care Milk Wagon Driver Name Role Phone Chen Pop Primary Care Provider [phone] Encounter Details Date Type Department Care Team (Late st Contact Info) Description 01/11/2025 Chegue.lá Message Intial Department [address] [place] [address] Mychart, Generic Provider [address] [place] [address] Questionnaire Submission [...] on filedocumented in this encounter Care Teams Milk Wagon Driver Relationship Specialty Start Date End Date Chen Pop [address] [place], [place] [phone] PCP - General Internal Medicine 05/01/24 documented as of this encounter
--- OUTSIDE RECORDS SUMMARY | 2025-08-13 18:36 | XMS_ITS | Encounter Summary ---
Author Organization [facility] Address [address] [facility] [address] [place] [address] Phone Care Team Providers Care Draw Machine Operator Name Role Phone Judy Abreu MD Primary Care Provider Tess Thomas DDS Unavailab le Bro Marino DMD Unavailable [phone] Chen Pop MD Primary Care Provider [phone] Encounter Details Date Type Department Care Team (Late st Contact Info) Description 01/02/2019 Procedure Pass [facility] LW PERIOP DEPT [address] [place] [address] Social History Tobacco Use Types Packs/Day Years [...] on filedocumented in this encounter Care Teams Draw Machine Operator Relationship Specialty Start Date End Date Judy Abreu MD [facility] [place] [address] [place], [place] [phone] PCP - General Internal Medicine 06/27/18 05/21/24 Chen Pop MD [address] [place] [id number] PCP - General Internal Medicine 05/22/24 Tess Thomas DDS [address] [place] [address] [address] [place] [address] hob mill operator 08/06/18 Bro Marino, JENNIFER [address] [place] [address] [address] [place] [address] [email or web address] hob mill operator 01/21/19 documented as of this encounter Additional Source Comments The information contained in this document represents components of the legal health record. It is not the complete legal health record.[facility]
--- OUTSIDE RECORDS SUMMARY | 2025-08-13 18:36 | XMS_ITS | Encounter Summary ---
Author Organization [facility] Address [address] [place] [address] Care Team Providers Care Chemotherapist Name Role Phone Chen Pop Primary Care Provider [phone] Encounter Details Date Type Department Care Team (Late st Contact Info) Description 01/16/2025 iCar Asia Message [facility] Surgery [address] [place] [address] MycharNuday Games, [facility] Provider [address] [place] [address] Questionnaire due soon Social History Tobacco [...] on filedocumented in this encounter Care Teams Chemotherapist Relationship Specialty Start Date End Date Chen Pop [address] [place] [address] PCP - General Internal Medicine 05/01/24 documented as of this encounter
--- OUTSIDE RECORDS SUMMARY | 2025-08-13 18:37 | XMS_ITS | Encounter Summary ---
Author Organization [facility] Address [address] [place] [address] Care Team Providers Care Travel Information Center Supervisor Name Role Phone Chen Pop Primary Care Provider [phone] Encounter Details Date Type Department Care Team (Late st Contact Info) Description 10/26/2024 D1G Message Intial Department [address] [place] [address] Mychart, Generic Provider [address] [place] [address] Questionnaire Submission Social History Tobacco Use [...] on filedocumented in this encounter Care Teams Travel Information Center Supervisor Relationship Specialty Start Date End Date Chen Pop [address] [place], [place] [phone] PCP - General Internal Medicine 05/01/24 documented as of this encounter
--- OUTSIDE RECORDS SUMMARY | 2025-08-13 18:37 | XMS_ITS | Encounter Summary ---
Author Organization [facility] Address [address] [place] [address] Care Team Providers Care Retail Receiving Clerk Name Role Phone Chen Pop Primary Care Provider [phone] Encounter Details Date Type Department Care Team (Late st Contact Info) Description 10/26/2024 Mobiscope Message [facility] Surgery [address] [place] [address] MycharNeurotech, [facility] Provider [address] [place] [address] Questionnaire due soon Social History Tobacco [...] on filedocumented in this encounter Care Teams Retail Receiving Clerk Relationship Specialty Start Date End Date Chen Pop [address] [place] [address] PCP - General Internal Medicine 05/01/24 documented as of this encounter
--- OUTSIDE RECORDS SUMMARY | 2025-08-13 18:37 | XMS_ITS | Encounter Summary ---
Author Organization [facility] Address [address] [place] [address] Care Team Providers Care Clinical Professor Name Role Phone Chen Pop Primary Care Provider [phone] Encounter Details Date Type Department Care Team (Late st Contact Info) Description 10/27/2024 Antrad Medical Message Intial Department [address] [place] [address] Mychart, Generic Provider [address] [place] [address] Questionnaire Submission Social History Tobacco Use [...] filedocumented in this encounter Care Teams Clinical Professor Relationship Specialty Start Date End Date Chen Pop [address] [place], [place] [phone] PCP - General Internal Medicine 05/01/24 documented as of this encounter
--- OUTSIDE RECORDS SUMMARY | 2025-08-13 18:37 | XMS_ITS | Encounter Summary ---
Author Organization [facility] Address [address] [place] [address] Care Team Providers Care Openstack Developer Name Role Phone Judy Mack MD Primary Care Provider [phone] Encounter Details Date Type Department Care Team (Late st Contact Info) Description 07/23/2024 Lab Requisition [facility] - Main Lab [address] [facility] [place] [phone] Brian Avalos MD [address] [place] [address] Pain in right knee Social History Tobacco [...] knee documented in this encounter Care Teams Openstack Developer Relationship Specialty Start Date End Date Judy Mack MD [address] [facility] [address] [place] [address] PCP - General Internal Medicine 06/25/17 documented as of this encounter
--- OUTSIDE RECORDS SUMMARY | 2025-08-13 18:37 | XMS_ITS | Encounter Summary ---
Author Organization [facility] Address [address] [place] [address] Care Team Providers Care Military Cook Name Role Phone Judy Mack MD Primary Care Provider [phone] Encounter Details Date Type Department Care Team (Late st Contact Info) Description 07/23/[address] [facility] - Main Lab 299 [facility] [place] [address] Brian Avalos MD [address] [place] [address] Pain in right knee Social History Tobacco [...] auto differential (07/23/2024 7:18 AM EST) [facility] WBC 7.5 4.8 - 10.8 K/mcL LAB HEMETOLOGY METHOD 07/23/2024 9:03 AM [facility] LAB RBC 3.40(L) 3.80 - 4.80 M/mcL LAB HEMETOLOGY METHOD 07/23/2024 9:03 AM [facility] LAB Hemoglobin 11.0(L) 11.5 - 16.0 g/dL LAB HEMETOLOGY METHOD 07/23/2024 9:03 AM [facility] LAB Hematocrit 34.0(L) 35.0 - 47.0 % LAB HEMETOLOGY METHOD 07/23/2024 9:03 AM [facility] LAB MCV 99.4(H) 79.0 - 98.0 FL LAB HEMETOLOGY METHOD 07/23/2024 9:03 AM [facility] LAB MCH 32.2(H) 27.0 - 32.0 pcg LAB HEMETOLOGY METHOD 07/23/2024 9:03 AM [facility] LAB MCHC 32.4 32.0 - 37.0 g/dL LAB HEMETOLOGY METHOD 07/23/2024 9:03 AM [facility] LAB RDW 13.6 11.0 - 15.0 % LAB HEMETOLOGY METHOD 07/23/2024 9:03 AM [facility] LAB Platelets 185 130 - 400 K/mcL LAB HEMETOLOGY METHOD 07/23/2024 9:03 AM [facility] LAB MPV 10.4 7.0 - 11.0 FL LAB HEMETOLOGY METHOD 07/23/2024 9:03 AM [facility] LAB NRBC 0.0 <1.0 % LAB HEMETOLOGY METHOD 07/23/2024 9:03 AM [facility] LAB NRBC Absolute 0.00 <0.10 K/mcL LAB HEMETOLOGY METHOD 07/23/2024 9:03 AM [facility] LAB Neutrophils Relative 76.7 % LAB HEMETOLOGY METHOD 07/23/2024 9:03 AM [facility] LAB Lymphocytes Relative 10.0 % LAB HEMETOLOGY METHOD 07/23/2024 9:03 AM [facility] LAB Monocytes Relative 11.9 % LAB HEMETOLOGY METHOD 07/23/2024 9:03 AM [facility] LAB Eosinophils Relative 0.4 % LAB HEMETOLOGY METHOD 07/23/2024 9:03 AM [facility] LAB Basophils Relative 0.3 % LAB HEMETOLOGY METHOD 07/23/2024 9:03 AM [facility] LAB Immature Granulocytes Relative 0.7 % LAB HEMETOLOGY METHOD 07/23/2024 9:03 AM [facility] LAB Neutrophils Absolute 5.76 1.50 - 7.00 K/mcL LAB HEMETOLOGY METHOD 07/23/2024 9:03 AM [facility] LAB Lymphocytes Absolute 0.75(L) 1.00 - 5.00 K/mcL LAB HEMETOLOGY METHOD 07/23/2024 9:03 AM [facility] LAB Monocytes Absolute 0.89 0.20 - 1.00 K/mcL LAB HEMETOLOGY METHOD 07/23/2024 9:03 AM [facility] LAB Eosinophils Absolute 0.03 0.00 - 0.50 K/mcL LAB HEMETOLOGY METHOD 07/23/2024 9:03 AM [facility] LAB Basophils Absolute 0.02 0.00 - 0.20 K/mcL LAB HEMETOLOGY METHOD 07/23/2024 9:03 AM [facility] LAB Immature Granulocytes Absolute 0.05(H) 0.00 - 0.03 K/mcL LAB HEMETOLOGY METHOD 07/23/2024 9:03 AM [facility] LAB Blood Venous blood specimen / Unknown Venipuncture / Unknown 07/23/2024 7:18 AM EST 07/23/2024 8:08 AM EST Brian Avalos MD LAB BLOOD ORDERABLES Final Res ult [facility] [address] [place] [address], [place] [phone] * Magnesium (07/23/2024 7:18 AM EST) Pathologist [facility] Magnesium 2.1 1.9 - 2.6 mg/dL LAB CHEMISTRY METHOD 07/23/2024 9:38 AM EST [facility] Blood Venous blood specimen / Unknown Venipuncture / Unknown 07/23/2024 7:18 AM EST 07/23/2024 8:08 AM EST Brian Avalos MD LAB BLOOD ORDERABLES Final Res ult Performing Organization Address City/[facility]/ZIP Co de Phone Number [facility] [address] [place] [address], [place] [phone] * (ABNORMAL) Comprehensive metabolic panel (07/23/2024 7:18 AM EST) [facility] Sodium 136 133 - 145 mmol/L LAB CHEMISTRY METHOD 07/23/2024 9:38 AM [facility] LAB Potassium 4.3 3.5 - 5.5 mmol/L LAB CHEMISTRY METHOD 07/23/2024 9:38 AM [facility] LAB Chloride 103 96 - 110 mmol/L LAB CHEMISTRY METHOD 07/23/2024 9:38 AM EST [facility] CO2 28 21 - 32 mmol/L LAB CHEMISTRY METHOD 07/23/2024 9:38 AM [facility] LAB Anion Gap 5 3 - 11 LAB CHEMISTRY METHOD 07/23/2024 9:38 AM EST [facility] Glucose 92 70 - 100 mg/dL LAB CHEMISTRY METHOD 07/23/2024 9:38 AM [facility] BUN 14 5 - 25 mg/dL LAB CHEMISTRY METHOD 07/23/2024 9:38 AM [facility] LAB Creatinine 0.96 0.50 - 1.10 mg/dL LAB CHEMISTRY METHOD 07/23/2024 9:38 AM [facility] LAB eGFR 61 >=60 mL/min/1. 73m2 LAB CHEMISTRY METHOD 07/23/2024 9:38 AM [facility] LAB Comment:Calculation based on the Chronic Kidney Disease Epidemiology Collaboration (CKD-EPI) equation refit without adjustment for race. BUN/Creatinine Ratio 14.6 LAB CHEMISTRY METHOD 07/23/2024 9:38 AM [facility] LAB Calcium 7.8(L) 8.5 - 10.5 mg/dL LAB CHEMISTRY METHOD 07/23/2024 9:38 AM [facility] LAB AST (SGOT) 11 10 - 42 unit/L LAB CHEMISTRY METHOD 07/23/2024 9:38 AM [facility] LAB ALT (SGPT) 11 10 - 60 unit/L LAB CHEMISTRY METHOD 07/23/2024 9:38 AM [facility] LAB Alkaline Phosphatase 49 42 - 121 unit/L LAB CHEMISTRY METHOD 07/23/2024 9:38 AM [facility] LAB Total Protein 5.3(L) 6.0 - 8.0 g/dL LAB CHEMISTRY METHOD 07/23/2024 9:38 AM [facility] LAB Albumin 2.5(L) 3.2 - 5.0 g/dL LAB CHEMISTRY METHOD 07/23/2024 9:38 AM [facility] Total Bilirubin 0.4 0.0 - 1.4 mg/dL LAB CHEMISTRY METHOD 07/23/2024 9:38 AM [facility] LAB Blood Venous blood specimen / Unknown Venipuncture / Unknown 07/23/2024 7:18 AM EST 07/23/2024 8:08 AM EST us Brian Avalos MD LAB BLOOD ORDERABLES Final Res ult [facility] [address] [place] [address], documented in this encounter Visit Diagnoses Diagnosis Pain in right knee documented in this encounter Care Teams Military Cook Relationship Specialty Start Date End Date Judy Mack MD [address] [address] PCP - General Internal Medicine 06/25/17 documented as of this encounter
--- OUTSIDE RECORDS SUMMARY | 2025-08-13 18:37 | XMS_ITS | Encounter Summary ---
Author Organization [facility] Address [address] [place] [address] Care Team Providers Care Staying Machine Operator Name Role Phone Chen Pop Primary Care Provider [phone] Encounter Details Date Type Department Care Team (Late st Contact Info) Description 10/24/2024 [employer] Message Intial Department [address] [place] [address] Mychart, Generic Provider [address] [place] [address] Questionnaire Submission Social History Tobacco Use [...] on filedocumented in this encounter Care Teams Staying Machine Operator Relationship Specialty Start Date End Date Chen Pop [address] [place], [place] [id number] PCP - General Internal Medicine 05/01/24 documented as of this encounter
--- OUTSIDE RECORDS SUMMARY | 2025-08-13 18:37 | XMS_ITS | Encounter Summary ---
Author Organization [facility] Address [address] [place] [address] Care Team Providers Care Motel Food Service Supervisor Name Role Phone Judy Mack MD Primary Care Provider Encounter Details Date Type Department Care Team (Late st Contact Info) Description 07/31/2024 Lab Requisition [facility] - Main Lab 299 [facility] [place] [address] Brian Avalos MD [address] [place] [address] Encounter for other general examination Social History [...] Center LAB HEMETOLOGY METHOD 07/31/2024 8:37 AM [facility] LAB RBC 2.90(L) 3.80 - 4.80 M/[facility] LAB HEMETOLOGY METHOD 07/31/2024 8:37 AM [facility] LAB Hemoglobin 9.0(L) 11.5 - 16.0 g/dL LAB HEMETOLOGY METHOD 07/31/2024 8:37 AM [facility] LAB Hematocrit 29.1(L) 35.0 - 47.0 % LAB HEMETOLOGY METHOD 07/31/2024 8:37 AM [facility] LAB MCV 101.4(H) 79.0 - 98.0 FL LAB HEMETOLOGY METHOD 07/31/2024 8:37 AM [facility] LAB MCH 31.4 27.0 - 32.0 pcg LAB HEMETOLOGY METHOD 07/31/2024 8:37 AM [facility] LAB MCHC 30.9(L) 32.0 - 37.0 g/dL LAB HEMETOLOGY METHOD 07/31/2024 8:37 AM [facility] LAB RDW 14.1 11.0 - 15.0 % LAB HEMETOLOGY METHOD 07/31/2024 8:37 AM [facility] LAB Platelets 299 130 - 400 K/[facility] LAB HEMETOLOGY METHOD 07/31/2024 8:37 AM [facility] LAB MPV 10.4 7.0 - 11.0 FL LAB HEMETOLOGY METHOD 07/31/2024 8:37 AM [facility] LAB NRBC 0.0 <1.0 % LAB HEMETOLOGY METHOD 07/31/2024 8:37 AM [facility] LAB NRBC Absolute 0.00 <0.10 K/[facility] LAB HEMETOLOGY METHOD 07/31/2024 8:37 AM [facility] LAB Neutrophils Relative 59.5 % LAB HEMETOLOGY METHOD 07/31/2024 8:37 AM [facility] LAB Lymphocytes Relative 25.3 % LAB HEMETOLOGY METHOD 07/31/2024 8:37 AM [facility] LAB Monocytes Relative 11.8 % LAB HEMETOLOGY METHOD 07/31/2024 8:37 AM [facility] LAB Eosinophils Relative 1.7 % LAB HEMETOLOGY METHOD 07/31/2024 8:37 AM [facility] LAB Basophils Relative 0.6 % LAB HEMETOLOGY METHOD 07/31/2024 8:37 AM [facility] LAB Immature Granulocytes Relative 1.1 % LAB HEMETOLOGY METHOD 07/31/2024 8:37 AM [facility] LAB Neutrophils Absolute 2.82 1.50 - 7.00 K/mcL LAB HEMETOLOGY METHOD 07/31/2024 8:37 AM [facility] LAB Lymphocytes Absolute 1.20 1.00 - 5.00 K/mcL LAB HEMETOLOGY METHOD 07/31/2024 8:37 AM [facility] LAB Monocytes Absolute 0.56 0.20 - 1.00 K/mcL LAB HEMETOLOGY METHOD 07/31/2024 8:37 AM [facility] LAB Eosinophils Absolute 0.08 0.00 - 0.50 K/mcL LAB HEMETOLOGY METHOD 07/31/2024 8:37 AM [facility] LAB Basophils Absolute 0.03 0.00 - 0.20 K/mcL LAB HEMETOLOGY METHOD 07/31/2024 8:37 AM [facility] LAB Immature Granulocytes Absolute 0.05(H) 0.00 - 0.03 K/mcL LAB HEMETOLOGY METHOD 07/31/2024 8:37 AM [facility] LAB Blood Venous blood specimen / Unknown Venipuncture / Unknown 07/31/2024 4:39 AM EST 07/31/2024 7:14 AM EST us Brian Avalos MD LAB BLOOD ORDERABLES Final Res ult [facility] [address] [place] [address], [place] [phone] * (ABNORMAL) Basic metabolic panel (07/31/2024 4:39 AM EST) Sodium 141 133 - 145 mmol/L LAB CHEMISTRY METHOD 07/31/2024 8:55 AM EST [facility] LAB Potassium 4.4 3.5 - 5.5 mmol/L LAB CHEMISTRY METHOD 07/31/2024 8:55 AM [facility] LAB Chloride 107 96 - 110 mmol/L LAB CHEMISTRY METHOD 07/31/2024 8:55 AM [facility] LAB CO2 30 21 - 32 mmol/L LAB CHEMISTRY METHOD 07/31/2024 8:55 AM [facility] LAB Anion Gap 4 3 - 11 LAB CHEMISTRY METHOD 07/31/2024 8:55 AM [facility] LAB Glucose 82 70 - 100 mg/dL LAB CHEMISTRY METHOD 07/31/2024 8:55 AM [facility] LAB BUN 20 5 - 25 mg/dL LAB CHEMISTRY METHOD 07/31/2024 8:55 AM [facility] LAB Creatinine 0.92 0.50 - 1.10 mg/dL LAB CHEMISTRY METHOD 07/31/2024 8:55 AM [facility] LAB eGFR 64 >=60 mL/min/1. 73m2 LAB CHEMISTRY METHOD 07/31/2024 8:55 AM [facility] LAB Comment:Calculation based on the Chronic Kidney Disease Epidemiology Collaboration (CKD-EPI) equation refit without adjustment for race. BUN/Creatinine Ratio 21.7 LAB CHEMISTRY METHOD 07/31/2024 8:55 AM [facility] LAB Calcium 8.4(L) 8.5 - 10.5 mg/dL LAB CHEMISTRY METHOD 07/31/2024 8:55 AM EST [facility] LAB Blood Venous blood specimen / Unknown Venipuncture / Unknown 07/31/2024 4:39 AM EST 07/31/2024 7:14 AM EST us Brian Avalos MD LAB BLOOD ORDERABLES Final Res ult [facility] [address] [place] [address], documented in this encounter Visit Diagnoses Diagnosis Encounter for other general examination documented in this encounter Care Teams Motel Food Service Supervisor Relationship Specialty Start Date End Date Judy Mack MD [address] [facility] [address] [place] [address] PCP - General Internal Medicine 06/25/17 documented as of this encounter
--- OUTSIDE RECORDS SUMMARY | 2025-08-13 18:37 | XMS_ITS | Encounter Summary ---
Author Organization [facility] Address [address] [place] [address] Care Team Providers Care Painter Rough Name Role Phone Chen Pop Primary Care Provider [phone] Encounter Details Date Type Department Care Team (Late st Contact Info) Description 10/27/2024 [employer] Message Intial Department [address] [place] [address] Mychart, Generic Provider [address] [place] [address] Questionnaire Submission Social History Tobacco Use [...] on filedocumented in this encounter Care Teams Painter Rough Relationship Specialty Start Date End Date Chen Pop 1960 [place], [place] [phone] PCP - General Internal Medicine 05/01/24 documented as of this encounter
--- OUTSIDE RECORDS SUMMARY | 2025-08-13 18:37 | XMS_ITS | Encounter Summary ---
Author Organization [facility] Address [address] [place] [address] Care Team Providers Care Lens Engraver Name Role Phone Chen Pop Primary Care Provider [phone] Encounter Details Date Type Department Care Team (Late st Contact Info) Description 03/25/2025 [employer] Message [facility] Surgery [address] [place] [address] [employer], [facility] Provider [address] [place] [address] Questionnaire due soon Social History Tobacco [...] on filedocumented in this encounter Care Teams Lens Engraver Relationship Specialty Start Date End Date Chen Pop [address] [place] [address] PCP - General Internal Medicine 05/01/24 documented as of this encounter
--- OUTSIDE RECORDS SUMMARY | 2025-08-13 18:37 | XMS_ITS | Encounter Summary ---
Author Organization [facility] Address [address] [place] [address] Care Team Providers Care Die Cut Operator Name Role Phone Lorraine Popanna Primary Care Provider [phone] Encounter Details Date Type Department Care Team (Late st Contact Info) Description 05/24/2025 [employer] Message [facility] Surgery [address] [place] [address] [employer]ogen [employer], [facility] Provider [facility] [place] [address] Questionnaire due soon Social History [...] documented as of this encounter Care Teams Die Cut Operator Relationship Specialty Start Date End Date Chen Pop [address] [place] [address] PCP - General Internal Medicine 05/01/24 documented as of this encounter
--- OUTSIDE RECORDS SUMMARY | 2025-08-13 18:37 | XMS_ITS | Clinical Summary ---
Author Organization [address] Address [address] [place] [phone] Phone Care Team Providers Care Site Supervisor Name Role Phone Judy Mack MD Primary Care Provider [phone] Social History Tobacco Use Types Packs/Day Years [...] age to complete this topic Care Teams Site Supervisor Relationship Specialty Start Date End Date Judy Mack MD [facility] [address] [address] PCP - General Internal Medicine 06/25/17
--- OUTSIDE RECORDS SUMMARY | 2025-08-13 18:37 | XMS_ITS | Encounter Summary ---
Author Organization [facility] Address [address] [place] [address] Care Team Providers Care Construction Plumber Name Role Phone Lorraine Popanna Primary Care Provider [phone] Encounter Details Date Type Department Care Team (Late st Contact Info) Description 04/02/2025 [employer] Message [facility] Surgery [address] [place] [address] [employer], [facility] Provider [facility] [place] [address] Questionnaire due soon Social History [...] documented as of this encounter Care Teams Construction Plumber Relationship Specialty Start Date End Date Chen Pop [address] [place] [address] PCP - General Internal Medicine 05/01/24 documented as of this encounter
--- OUTSIDE RECORDS SUMMARY | 2025-08-13 18:37 | XMS_ITS | Encounter Summary ---
Author Organization [facility] Address [address] [place] [address] Care Team Providers Care Diagnostics Sales Developer Name Role Phone Chen Pop Primary Care Provider [phone] Encounter Details Date Type Department Care Team (Late st Contact Info) Description 10/27/2024 [employer] Message Intial Department [address] [place] [address] Mychart, Generic Provider [address] [place] [address] Questionnaire Submission Social History Tobacco Use [...] on filedocumented in this encounter Care Teams Diagnostics Sales Developer Relationship Specialty Start Date End Date Chen Pop [address] [place], [place] [phone] PCP - General Internal Medicine 05/01/24 documented as of this encounter
--- OUTSIDE RECORDS SUMMARY | 2025-08-13 18:37 | XMS_ITS | Encounter Summary ---
Author Organization [facility] Address [address] [place] [address] Care Team Providers Care Bricklayer Tender Name Role Phone Chen Pop Primary Care Provider [phone] Encounter Details Date Type Department Care Team (Late st Contact Info) Description 10/27/2024 [employer] Message Intial Department [address] [place] [address] Mychart, Generic Provider [address] [place] [address] Questionnaire Submission Social History Tobacco Use [...] on filedocumented in this encounter Care Teams Bricklayer Tender Relationship Specialty Start Date End Date Chen Pop [address] [place], [place] [phone] PCP - General Internal Medicine 05/01/24 documented as of this encounter
--- OUTSIDE RECORDS SUMMARY | 2025-08-13 18:37 | XMS_ITS | Encounter Summary ---
Author Organization [facility] Address [address] [place] [address] Care Team Providers Care Demo Event Specialist Name Role Phone Lorraine Popanna Primary Care Provider [phone] Encounter Details Date Type Department Care Team (Late st Contact Info) Description 05/08/2025 Outline Message [facility] Surgery [address] [place] [address] MycharLogicbroker, [facility] Provider [facility] [place] [address] Questionnaire due soon Social History [...] documented as of this encounter Care Teams Demo Event Specialist Relationship Specialty Start Date End Date Chen Pop [address] [place] [address] PCP - General Internal Medicine 05/01/24 documented as of this encounter
--- OUTSIDE RECORDS SUMMARY | 2025-08-13 18:37 | XMS_ITS | Encounter Summary ---
Author Organization [facility] Address [address] [place] [address] Care Team Providers Care Soda Drier Feeder Name Role Phone Judy Mack MD Primary Care Provider [phone] Encounter Details Date Type Department Care Team (Late st Contact Info) Description 07/29/2024 Lab Requisition [facility] - Main Lab [address] [place] [address] Brian Avalos MD [address] [place] [address] Other specified arthritis, unspecified site Social History [...] AM EST) WBC 5.3 4.8 - 10.8 K/[facility] LAB HEMETOLOGY METHOD 07/29/2024 9:[address] [facility] LAB RBC 2.90(L) 3.80 - 4.80 M/mcL LAB HEMETOLOGY METHOD 07/29/2024 9:[address] [facility] LAB Hemoglobin 9.2(L) 11.5 - 16.0 g/dL LAB HEMETOLOGY METHOD 07/29/2024 9:[address] [facility] LAB Hematocrit 29.5(L) 35.0 - 47.0 % LAB HEMETOLOGY METHOD 07/29/2024 9:[address] [facility] LAB MCV 100.7(H) 79.0 - 98.0 FL LAB HEMETOLOGY METHOD 07/29/2024 9:[address] [facility] LAB MCH 31.4 27.0 - 32.0 pcg LAB HEMETOLOGY METHOD 07/29/2024 9:[address] [facility] LAB MCHC 31.2(L) 32.0 - 37.0 g/dL LAB HEMETOLOGY METHOD 07/29/2024 9:[address] [facility] LAB RDW 14.3 11.0 - 15.0 % LAB HEMETOLOGY METHOD 07/29/2024 9:[address] [facility] LAB Platelets 226 130 - 400 K/mcL LAB HEMETOLOGY METHOD 07/29/2024 9:[address] [facility] LAB MPV 10.7 7.0 - 11.0 FL LAB HEMETOLOGY METHOD 07/29/2024 9:[address] [facility] LAB NRBC 0.0 <1.0 % LAB HEMETOLOGY METHOD 07/29/2024 9:[address] [facility] LAB NRBC Absolute 0.00 <0.10 K/mcL LAB HEMETOLOGY METHOD 07/29/2024 9:[address] [facility] LAB Blood Venous blood specimen / Unknown Venipuncture / Unknown 07/29/2024 5:32 AM EST 07/29/2024 8:28 AM EST us Brian Avalos MD LAB BLOOD ORDERABLES Final Res ult [facility] LAB [address] [place] [address], [place] [phone] * (ABNORMAL) Comprehensive metabolic panel (07/29/2024 5:32 AM EST) Sodium 141 133 - 145 mmol/L LAB CHEMISTRY METHOD 07/29/2024 10:[address] [facility] LAB Potassium 4.2 3.5 - 5.5 mmol/L LAB CHEMISTRY METHOD 07/29/2024 10:[address] [facility] Chloride 104 96 - 110 mmol/L LAB CHEMISTRY METHOD 07/29/2024 10:[address] [facility] CO2 31 21 - 32 mmol/L LAB CHEMISTRY METHOD 07/29/2024 10:[address] [facility] LAB Anion Gap 6 3 - 11 LAB CHEMISTRY METHOD 07/29/2024 10:[address] [facility] LAB Glucose 91 70 - 100 mg/dL LAB CHEMISTRY METHOD 07/29/2024 10:[address] [facility] BUN 22 5 - 25 mg/dL LAB CHEMISTRY METHOD 07/29/2024 10:[address] [facility] LAB Creatinine 0.87 0.50 - 1.10 mg/dL LAB CHEMISTRY METHOD 07/29/2024 10:[address] [facility] LAB eGFR 69 >=60 mL/min/1. 73m2 LAB CHEMISTRY METHOD 07/29/2024 10:[address] [facility] LAB Comment:Calculation based on the Chronic Kidney Disease Epidemiology Collaboration (CKD-EPI) equation refit without adjustment for race. BUN/Creatinine Ratio 25.3 LAB CHEMISTRY METHOD 07/29/2024 10:[address] [facility] LAB Calcium 8.8 8.5 - 10.5 mg/dL LAB CHEMISTRY METHOD 07/29/2024 10:[address] [facility] AST (SGOT) 18 10 - 42 unit/L LAB CHEMISTRY METHOD 07/29/2024 10:[address] [facility] ALT (SGPT) 14 10 - 60 unit/L LAB CHEMISTRY METHOD 07/29/2024 10:[address] [facility] LAB Alkaline Phosphatase 59 42 - 121 unit/L LAB CHEMISTRY METHOD 07/29/2024 10:[address] [facility] Total Protein 5.2(L) 6.0 - 8.0 g/dL LAB CHEMISTRY METHOD 07/29/2024 10:[address] [facility] LAB Albumin 2.3(L) 3.2 - 5.0 g/dL LAB CHEMISTRY METHOD 07/29/2024 10:[address] [facility] Total Bilirubin 0.5 0.0 - 1.4 mg/dL LAB CHEMISTRY METHOD 07/29/2024 10:[address] [facility] Blood Venous blood specimen / Unknown Venipuncture / Unknown 07/29/2024 5:32 AM EST 07/29/2024 8:28 AM EST us Brian Avalos MD LAB BLOOD ORDERABLES Final Res ult [facility] [address] [place] [address], documented in this encounter Visit Diagnoses Diagnosis Other specified arthritis, unspecified site documented in this encounter Care Teams Soda Drier Feeder Relationship Specialty Start Date End Date Judy Mack MD [address] [phone] PCP - General Internal Medicine 06/25/17 documented as of this encounter
--- OUTSIDE RECORDS SUMMARY | 2025-08-13 18:37 | XMS_ITS | Patient Health Record ---
Author Organization [facility] Address [address] [place] [address] Care Team Providers Care Ict Sales Assistant Name Role Phone Judy Abreu MD Primary Care Provider Unav ailable Talha Knapp Unavailable [phone] Reason For Referral No Information Medications Medication SIG (Take, Route, Frequency, Duration) Notes Start Date End Date Status Evista Active Vagifem Active Pantoprazole Sodium 40 MG Tablet Delayed Release 1 tablet Orally Twice a day 30 minutes AC; Duration: 90 day(s) 03/04/2012 Active Propranolol HCl Acti ve Protonix Active Social History Social History Additional Details Category Social Info Options Details Miscellaneous: Marital status: 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 Section Notes: Nonsmoker; occ wine Problems Problem Type SNOMED Code ICD Code Onset Dates Problem Status W/U Status Risk Notes Problem Achalasia (finding) (05700705) 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 Problem Reflux esophagitis (677841168) Reflux esophagitis (530.11) Active confirmed Problem Esophageal reflux (638519523) Esophageal reflux (530.81) Active confirmed Problem Alberto's esophagus (059194619) 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 Problem Constipation (29820902) Unspecified constipation (564.00) Active confirmed Problem Screening for malignant neoplasm of colon (855777893) Special screening for malignant neoplasms, colon (V76.51) Active confirmed Plan Of Treatment Future Test Test Name Order Date UPPER GI ENDOSCOPY 06/15/2011 COLONOSCOPY 06/15/2011 Insurance Providers Payer Name Payer Address Payer Phone Subscriber Number Group Number Insured Name Patient Relationship to Insured Coverage Start Date Coverage End Date MEDICARE OF [place] [address] [place] [address] [id number] MELIDA LAZCANO Self - patient is the insured [facility] [address] [place] [phone] [id number] MELIDA LAZCANO Self - patient is the insured Medical (General) History Medical History History ICD Code Achalsia GERD with Alberto's esophagus and esopha gitis meningioma Denies ND,DM,CVA,Lung disease,renal dise ase migraines Surgical History Surgery Date(Month/Year) meningioma removed in May [address] Andre at [facility]. Heller myotomy 09/1999 Varicose veins
--- OUTSIDE RECORDS SUMMARY | 2025-08-13 18:37 | XMS_ITS | Encounter Summary ---
Author Organization [facility] Address [address] [place] [address] Care Team Providers Care Addresser Name Role Phone Chen Pop Primary Care Provider [phone] Encounter Details Date Type Department Care Team (Late st Contact Info) Description 10/24/2024 [email or web address] Message Intial Department [address] [place] [address] Mychart, Generic Provider [address] [place] [address] Questionnaire Submission Social History Tobacco Use [...] on filedocumented in this encounter Care Teams Addresser Relationship Specialty Start Date End Date Chen Pop 1960 [place], [place] [phone] PCP - General Internal Medicine 05/01/24 documented as of this encounter
--- OUTSIDE RECORDS SUMMARY | 2025-08-13 18:37 | XMS_ITS | Clinical Summary ---
Author Organization [facility] Address [address] [place] [address] Care Team Providers Care Textile Conversion Manager Name Role Phone Chen Pop Primary Care Provider [phone] Allergies No known active allergies Medications DULoxetine [...] Date Type Department Care Team Description 07/23/2025 [employer] Message [facility] Surgery [address] [place] [address] [employer] Generic Provider Questionnaire due soon 05/24/2025 [employer] Message [address] [address] [place], Generic Provider Questionnaire due soon from Last [...] Mace RN Medical Devices Implanted Type Area Assurance Services Manager Health Care Device Identifier Shelf Expiration Date Model / Serial / Lot Patella Asymmetric Metal Backed Tritanium Size A32 [id number] Tritanium - [id number] Implanted:Qty: 1 on 07/20/2024 by Saqib Santos J.P., MD at [facility] Implant Right: Knee CHRISTIE [id number] 04/09/2029 5552-L-32 0 / / [id number] Insert Tibial Bearing Size 4 11mm Triathlon X3 - [id number] Implanted:Qty: 1 on 07/20/2024 by Saqib Santos J.P., MD at [facility] Implant Right: Knee CHRISTIE [id number] 03/27/2029 5531-G-41 1-E / / [id number] Component Femoral Knee Cruciate Retaining Right Size 4 - [id number] Implanted:Qty: 1 on 07/20/2024 by Saqib Santos J.P., MD at [facility] Implant Right: Knee CHRISTIE [id number] 04/25/2029 5517-F-40 2 / / [id number] Baseplate Tritanium Size 4 Triathlon - [id number] Implanted:Qty: 1 on 07/20/2024 by Saqib Santos J.P., MD at [facility] Implant Right: Knee CHRISTIE [id number] 03/02/2029 5536-B-40 0 / / [id number] Component Femoral Cruciate Retaining Beaded Left Size 4 Triathlon - [id number] Implanted:Qty: 1 on 11/09/2024 by Saqib Santos J.P., MD at [facility] Implant Left: Knee CHRISTIE [id number] 01/22/2029 5517-F-40 1 / / [id number] Baseplate Tritanium Size 4 Triathlon - [id number] Implanted:Qty: 1 on 11/09/2024 by Saqib Santos J.P., MD at [facility] Implant Left: Knee CHRISTIE [id number] 08/27/2029 5536-B-40 0 / / [id number] Patella Asymmetric Metal Backed Tritanium Size A32 [id number] Tritanium - [id number] Implanted:Qty: 1 on 11/09/2024 by Saqib Santos J.P., MD at [facility] Implant Left: Knee CHRISTIE [id number] 01/21/2029 5552-L-32 0 / / [id number] Tibial Bearing Insert Size 4 9mm Triathlon - [id number] Implanted:Qty: 1 on 11/09/2024 by Saqib Santos J.P., MD at [facility] Implant Left: Knee CHRISTIE [id number] 06/18/2029 5531-G-40 9-E / / [id number] Procedures * Due to [facility] law, this organization might not be sharing negative HIV tests. Procedure Name Priority Date/Time Associated Diagnosis Comments BASIC METABOLIC PANEL Routine 11/10/2024 10:17 AM EST from Last 3 Months or Most Recently Relevant to Health Maintenance Results * Due to [place] [employer] law, this organization might not be sharing negative HIV tests. * (ABNORMAL) Basic Metabolic Panel (11/10/2024 10:17 AM EST) NA 135 135 - 145 mmol/L 11/10/2024 11:10 AM EST [facility] K 4.7 3.5 - 5.3 mmol/L 11/10/2024 11:10 AM EST [facility] Cl 100 98 - 107 mmol/L 11/10/2024 11:10 AM EST [facility] CO2 25 22 - 32 mmol/L 11/10/2024 11:10 AM EST [facility] BUN 17 7 - 23 mg/dL 11/10/2024 11:10 AM EST [facility] Creatinine 1.13 0.50 - 1.20 mg/dL 11/10/2024 11:10 AM EST [facility] Glucose 256(H) 65 - 99 mg/dL 11/10/2024 11:10 AM EST [facility] Calcium 8.7 8.6 - 10.5 mg/dL 11/10/2024 11:10 AM EST [facility] Anion Gap 10 5 - 15 11/10/2024 11:10 AM EST [facility] eGFR 50(L) >=60 mL/min/1. 73m2 11/10/2024 11:10 AM EST [facility] Comment:The estimated glomer ular filtration [...] MD LAB BLOOD ORDERABLES Final R esult [facility] [address] [place] [address], from Last 3 Months or Most Recently Relevant to Health Maintenance Additional Health Concerns Active Problems Noted Date Diagnosed Date Autogenerated Problem 05/17/2025 Insurance MEDICARE MEDICARE Member Subscriber Plan / Payer (Ef fective 2011-Present) Name:Lillian Copeland Member ID:[id number] Relation to Subscriber:Self Name:Lillian Copeland Subscriber ID:[id number] Payer ID:[id number] Group ID:Not on file Type:Not on file Address: [address] Advance Directives Documents on File Type Date 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
--- OUTSIDE RECORDS SUMMARY | 2025-08-13 18:38 | XMS_ITS | Encounter Summary ---
Author Organization [facility] Address [address] [place] [address] Care Team Providers Care Investment Analyst Name Role Phone Chen Pop Primary Care Provider [phone] Encounter Details Date Type Department Care Team (Late st Contact Info) Description 07/06/2024 [employer] Message Intial Department [address] [place] [address] Mychart, Generic Provider [address] [place] [address] Questionnaire Submission Social History Tobacco Use [...] on filedocumented in this encounter Care Teams Investment Analyst Relationship Specialty Start Date End Date Chen Pop 1960 [place], [place] [phone] PCP - General Internal Medicine 05/01/24 documented as of this encounter
--- OUTSIDE RECORDS SUMMARY | 2025-08-13 18:38 | XMS_ITS | Encounter Summary ---
Author Organization [facility] Address [address] [place] [address] Care Team Providers Care Podiatry Assistant Name Role Phone Chen Pop Primary Care Provider [phone] Encounter Details Date Type Department Care Team (Late st Contact Info) Description 07/06/2024 Massive Analytic Message Intial Department [address] [place] [address] Mychart, Generic Provider [address] [place] [address] Questionnaire Submission Social History Tobacco Use [...] on filedocumented in this encounter Care Teams Podiatry Assistant Relationship Specialty Start Date End Date Chen Pop 1960 [place], [place] [phone] PCP - General Internal Medicine 05/01/24 documented as of this encounter
--- OUTSIDE RECORDS SUMMARY | 2025-08-13 18:38 | XMS_ITS | Encounter Summary ---
Author Organization [facility] Address [address] [place] [address] Care Team Providers Care Dice Spotter Name Role Phone Chen Pop Primary Care Provider [phone] Encounter Details Date Type Department Care Team (Late st Contact Info) Description 07/06/2024 [employer] Message Intial Department [address] [place] [address] Mychart, Generic Provider [address] [place] [address] Questionnaire Submission Social History Tobacco Use [...] on filedocumented in this encounter Care Teams Dice Spotter Relationship Specialty Start Date End Date Chen Pop 1960 [place], [place] [phone] PCP - General Internal Medicine 05/01/24 documented as of this encounter
--- OUTSIDE RECORDS SUMMARY | 2025-08-13 18:38 | XMS_ITS | Clinical Summary ---
Author Organization [facility] Address [address] [facility] [address] [place] [address] Phone Care Team Providers Care Molder Foam Rubber Name Role Phone Chen Pop MD Primary Care Provider [phone] Allergies Active Allergy Reactions Criticality Noted Date Comments Doxycycline 04/19/2021 Sulfa Antibiotics 04/19/2021 Medications DULoxetine (CYMBALTA) [address] capsule Take 60 mg by mouth 1 (one) time each day 1 Active traZODone (DESYREL) 50 MG tablet Take 50 mg by mouth every night 1 Active alpha tocopherol (VITAMIN E) 100 units capsule Take 400 Units by mouth daily Active acetaminophen (TYLENOL) 500 MG tablet Take 1,000 mg by mouth every 6 (six) hours if needed for mild pain Active cholecalciferol (VITAMIN D-3) 25 MCG (1000 UT) tablet Take 1,000 Units by mouth 1 (one) time each day Active pantoprazole (PROTONIX) 40 MG EC tablet Take 40 mg by mouth in the morning and 40 mg in the evening. Do not crush, chew, or split. . Active acyclovir (ZOVIRAX) 400 MG tablet Take 400 mg by mouth 2 (two) times a day 1 Active Aspirin Low Dose 81 MG EC tablet 1 Active [facility] Senna 8.6 MG tablet TAKE 2 TABLETS BY MOUTH AT BEDTIME NEEDED FOR CONSTIPATION 1 Active clindamycin (CLEOCIN) 300 MG capsule TAKE 1 CAPSULE BY MOUTH EVERY 8 HOURS UNTIL FINISHED 2 Active LORazepam (ATIVAN) 0.5 MG tablet 1 Active prochlorperazin e (COMPAZINE) 5 MG tablet TAKE 1-2 TABLETS BY MOUTH EVERY 6 HOURS NEEDED FOR NAUSEA 1 Active Ninlaro 3 MG capsule 2 Active [...] each day 30 tablet 11 3 Active montelukast (SINGULAIR) 10 MG tablet 10 MG ORALLY BEDTIME Active Hospital, Clinic, or Other Facility Administered Medication Ordered Dose Route Frequency Start Date End Date Status iron sucrose (VENOFER) injection 100 mgIndications:Iron deficiency anemia, not otherwise specified 100 mg IV Weekly 04/15/2023 Active Active Problems Problem Noted Date Diagnosed Date Vitamin D deficiency, not otherwise specified Other iron deficiency anemia 01/28/2023 Stage 3a [...] for nighttime. Carefully continue Protonix as prescribed. Encounters Date Type Department Care Team Description 06/06/2025 Orders Only [facility] [address] [id number] Hanny Magaña ARNP Stage 3a chronic kidney disease (HCC); Essential (primary) hypertension; Other iron deficiency anemia from Last 3 Months Immunizations Immunization Administration Dates Next Due Pfizer SARS-COV-2 11/24/2020,11/03/2020 Pneumococcal Conjugate 13-Valent 05/05/2021 Pneumococcal Polysaccharide 05/23/2011 Family History Medical History Relation Comments Cancer Father Diabetes Mother Hypertension Mother Cancer Mother's Sister Relation Status Comments Father Other Lung cancer Mother Mother's Sister Other Breast cancer Social History Tobacco Use Types Packs/Day Years Used Date Smoking Tobacco: Former Cigarettes 0 Q uit: 1970 Smokeless Tobacco: Never Tobacco [...] Sign Reading Time Taken Comments Blood Pressure 130/78 03/15/2025 2:47 PM EDT Pulse 65 03/15/2025 2:47 PM EDT Temperature - - Respiratory Rate 24 02/13/2023 10:3 5 AM EDT Oxygen Saturation 98% 03/15/2025 2:47 PM EDT Inhaled Oxygen Concentration - - Weight 65.2 kg (143 lb 12.8 oz) 03/15/2025 2:47 PM EDT Height 165.1 cm (5' 5 ) 08/05/2023 10:5 2 AM EST Body Mass Index 23.93 08/05/2023 10:52 AM EST Plan of Treatment Upcoming Encounters Date Type Department Care Team (Late st Contact Info) Description 09/14/2025 1:00 PM EST Office Visit [facility] [address] [phone] Hanny Magaña ARNP [address] [address] Health Maintenance Due Date Last Done Comments Pneumococcal Vaccine: 50+ Years (3 of 3 - PCV20 or PCV21) 06/30/2021 05/05/2021, 12/05/2018, 05/23/2011 Influenza Vaccine (#1) 2025 2, 06/21/2021, 06/14/2020, Additional history exists Hepatitis B Vaccine Aged Out No longe r eligible based on patient's age to complete this topic Procedures Procedure Name Priority Date/Time Associated Diagnosis Comments RENAL FUNCTION PANEL Routine 07/26/2025 12:09 PM EST Stage 3a chronic kidney disease (HCC) Essential (primary) hypertension Other iron deficiency anemia IRON PANEL (FE, TIBC, TSAT) Routine 07/26/2025 12:09 PM EST Stage 3a chronic kidney disease (HCC) Essential (primary) hypertension Other iron deficiency anemia CBC Routine 07/26/2025 12:09 PM EST Stage 3a chronic kidney disease (HCC) Essential (primary) hypertension Other iron deficiency anemia FERRITIN Routine 07/26/2025 12:09 PM EST Stage 3a chronic kidney disease (HCC) Essential (primary) hypertension Other iron deficiency anemia from Last 3 Months Results * (ABNORMAL) Iron Panel (Fe, TIBC, TSAT) (07/26/2025 12:09 PM EST) TIBC 355 250 - 450 ug/dL [facility] UIBC 329 118 - 369 ug/dL [facility] Iron 26(L) 27 - 139 ug/dL [facility] Iron Saturation (TSat) 7(LL) 15 - 55 % [facility] Blood Venous blood / Unknown 07/26/2025 12:09 PM EST 07/26/2025 us Hanny Magaña [facility] LAB BLOOD ORDERABLES Final Result [facility] [address], [address] [place] [address] * (ABNORMAL) CBC (07/26/2025 12:09 PM EST) WBC 2.1(LL) 3.4 - 10.8 x10E3/uL [facility] RBC 4.08 3.77 - 5.28 x10E6/uL [facility] Hemoglobin 11.7 11.1 - 15.9 g/dL [facility] Hematocrit 36.5 34.0 - 46.6 % [facility] MCV 90 79 - 97 fL [facility] MCH 28.7 26.6 - 33.0 pg [facility] MCHC 32.1 31.5 - 35.7 g/dL [facility] RDW 14.4 11.7 - 15.4 % [facility] Platelets 184 150 - 450 x10E3/uL [facility] Blood Venous blood / Unknown 07/26/2025 12:09 PM EST 07/26/2025 us Hanny Magaña [facility] LAB BLOOD ORDERABLES Final Result [facility] [address] [place] [address] * Ferritin (07/26/2025 12:09 PM EST) Ferritin 22 15 - 150 ng/mL [facility] Blood Venous blood / Unknown 07/26/2025 12:09 PM EST 07/26/2025 Hanny Magaña [facility] LAB BLOOD ORDERABLES Final Result [facility] [address], [address] [place] [address] * (ABNORMAL) Renal function panel (07/26/2025 12:09 PM EST) Glucose 88 70 - 99 mg/dL [facility] BUN 16 8 - 27 mg/dL [facility] Creatinine 1.08(H) 0.57 - 1.00 mg/dL [facility] eGFR CKD-EPI CR 2020 53(L) >59 mL/min/1.7 3 [facility] BUN/Creatinine Ratio 15 12 - 28 [facility] Sodium 138 134 - 144 mmol/L [facility] Potassium 4.7 3.5 - 5.2 mmol/L [facility] Chloride 103 96 - 106 mmol/L [facility] Bicarbonate (CO2) 30(H) 20 - 29 mmol/L [facility] Calcium 8.9 8.7 - 10.3 mg/dL [facility] Albumin 3.9 3.8 - 4.8 g/dL [facility] Phosphorus 3.6 3.0 - 4.3 mg/dL [facility] Blood Venous blood / Unknown 07/26/2025 12:09 PM EST 07/26/2025 Hanny Magaña [facility] LAB BLOOD ORDERABLES Final Result [facility] [address], [facility] [address] [place] [address] from Last 3 Months Insurance Medicare [facility] [place] Medicare [facility] Care Teams Molder Foam Rubber Relationship Specialty Start Date End Date Chen Pop MD [address] [place] [address] PCP - General Internal Medicine 03/15/25
--- OUTSIDE RECORDS SUMMARY | 2025-08-13 18:38 | XMS_ITS | Data Portability ---
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 Plan of Treatment Reminders Order Date Submit Date Provider Last Modified By Organization Details Last Modified Time Details Appointments None recorded. Lab None recorded. Referral None recorded. Procedures None recorded. Surgeries None recorded. Imaging None recorded. Medication Orders prednisone 20 mg tablet 2022 023 [facility][id number], [address] [place], [address], 18:14:52 Allergy Relief (fluticason e) 50 mcg/actuati on nasal spray,suspe nsion 2022 023 [facility][id number], [address] [place], [address], 18:14:53 benzonatate 100 mg capsule 2022 023 [id number], [address] [place], [address], 18:14:53 Patient TargetsNo targets recorded. Patient Instructions Encounter Date Encounter Id Patient Instructions Last Modified By Organization Details Last Modified Time 11/18/2022 [id number] earache: care instructions Not available 11/18/2022 18:14:50 [...] care for yourself at home? Take an mdxa-yhe-keaboyp pain medicine. Avoid Ibuprofen, Aleve and Aspirin if . If the doctor prescribed antibiotics, take them as directed. Do not stop taking them just because you feel better. You need to take the full course of antibiotics. Be careful when taking oato-wtv-dzkyrll cold or influenza (flu) medicines and Tylenol [...] Address Organization Details Recorded Time Multiple myeloma 503596163 Active 2022 ROSEMARY Nelson [facility] 17:53:44 Hypertensive disorder 75248962 Active 2022 JOHN ISABEL RO[facility]ARY dubois [facility] [...] Updated DateTime 3 165.1 cm 25 kg/m2 49931.8 6 g 96 % 72 /min 16 /min 98.2 [degF] 10 129/79 mm[Hg] JOHN CHLAO PA - [facility] 3 17:57:14 Social History Question Answer Notes LastModified by [employer] Details LastModified Time Tobacco Smoking Status Never Smoker JOHN ISABEL null, PA - [facility] 11/18/2022 17:54:47 Have You Recently Traveled Abroad? No Information not available 11/18/2022 Sex: Unknown Functional Status Question Answer Note LastModified by [employer] Details LastModified Time Do you use any [...] ICD10 Code Diagnosis IMO Codes Diagnosis Note [id number] [address] [place] [address] 03/25/2016 11:14:20 03/25/2016 11:58:56 [id number] [address] [address] [place] [address] 03/02/2018 16:03:13 03/02/2018 16:52:53 [id number] [address] [place] [address] 07/22/2021 15:33:18 07/22/2021 16:11:17 [id number] [address] [place] [address] 01/31/2018 09:28:34 01/31/2018 10:29:41 [id number] [address] [place] [address] 12/01/2018 18:58:33 12/01/2018 19:26:38 [id number] [address] [facility] [place] [address] 09/03/2016 11:54:52 09/03/2016 13:42:24 [id number] [address] [place] [address] 08/31/2020 11:01:29 08/31/2020 11:34:54 [id number] [address] [place] [address] 05/02/2016 10:40:45 05/02/2016 14:04:40 [id number] [address] [place] [address] 06/18/2019 11:15:53 06/18/2019 11:48:03 [id number] [address] [place] [address] 12/16/2016 17:56:52 12/16/2016 18:36:33 [id number] [address] [place] [address] 08/08/2018 08:24:52 08/08/2018 09:05:11 [id number] [address] [place] [address] 06/26/2017 13:50:56 06/26/2017 14:55:17 [id number] [address] [place] [address] 03/25/2018 09:24:49 03/25/2018 10:44:58 [id number] Tuan Jacques NP [address] [facility] [place] [address] 11/18/2022 13:19:00 11/18/2022 18:19:29 Acute sinusitis 17088439 J01.90 Health Concerns Section Related Observation LastModified by Organization Detai ls LastModified Time None Recorded Concern Status LastModified by Organization Details LastModified Time None Recorded Advance Directives Directive None Recorded Payers Insurance Date Sequence Insurance Name Policy Number Policy Rod Covered Member ID Rod Member ID Guarantor Name 11/18/2022 1 [place] [employer] Lillian Wallis Min [id number] Lillian Copeland 11/18/2022 2 [employer] [place] [id number] Lillian Copeland [id number] Lillian Copeland 08/08/2022 [employer] [facility] Occ Med Generic (Move To Hold) [[id number]] Lillian Copeland Notes Date Note Type Note [...] Jacques NP [address] [place], [address], [place] - [facility] 11/18/2022 18:17:58 OBGyn Episode No OBEpisode recorded.
--- OUTSIDE RECORDS SUMMARY | 2025-08-13 18:38 | XMS_ITS | Encounter Summary ---
Author Organization [facility] Address [address] [place] [address] Care Team Providers Care Health Assessment And Treatment Teacher Name Role Phone Chen Pop Primary Care Provider [phone] Encounter Details Date Type Department Care Team (Late st Contact Info) Description 03/09/2025 [employer] Message [facility] Surgery [address] [place] [address] MycharInsticator, [facility] Provider [address] [place] [address] Questionnaire due soon Social History Tobacco [...] on filedocumented in this encounter Care Teams Health Assessment And Treatment Teacher Relationship Specialty Start Date End Date Chen Pop [address] [place] [address] PCP - General Internal Medicine 05/01/24 documented as of this encounter
--- OUTSIDE RECORDS SUMMARY | 2025-08-13 18:38 | XMS_ITS | Encounter Summary ---
Author Organization [facility] Address [address] [place] [address] Care Team Providers Care Network Intern Name Role Phone Chen Pop Primary Care Provider Encounter Details Date Type Department Care Team (Late st Contact Info) Description 07/23/2025 Surgical Theater Message [facility] Surgery [address] [place] [phone] [facility] Provider [address] [place] [address] Questionnaire due soon Social History Tobacco [...] documented as of this encounter Care Teams Network Intern Relationship Specialty Start Date End Date Chen Pop 1960 [place] [address] PCP - General Internal Medicine 05/01/24 documented as of this encounter
--- OUTSIDE RECORDS SUMMARY | 2025-08-13 18:38 | XMS_ITS | Encounter Summary ---
Author Organization [facility] Address [address] [place] [address] Care Team Providers Care Drug Abuse Technician Name Role Phone Chen Pop Primary Care Provider [phone] Encounter Details Date Type Department Care Team (Late st Contact Info) Description 07/06/2024 [employer] Message Intial Department [address] [place] [id number] Mychart, Generic Provider [address] [place] [address] Questionnaire Submission Social History Tobacco Use [...] on filedocumented in this encounter Care Teams Drug Abuse Technician Relationship Specialty Start Date End Date Chen Pop 1960 [place], [place] [id number] PCP - General Internal Medicine 05/01/24 documented as of this encounter
--- OUTSIDE RECORDS SUMMARY | 2025-08-13 18:38 | XMS_ITS | Clinical Summary ---
Author Organization [facility] Address [address] [address] Phone Care Team Providers Care Ribbon Sweatband Operator Name Role Phone Gabriele Mayersjuni Carlisle Tess Hawthorne DDS Unavailab le Bro Marino DMD Unavailable [phone] Chen Pop MD Primary Care Provider [phone] Allergies Active Allergy Reactions Criticality Noted Date [...] mg by mouth daily. Active Ca cit-D3-mag#11-zin k-lyrc-kis-bor (CALTRATE 600+D) 600 mg calcium- 800 unit-50 [...] CONTROL. 100 mL 2 4 Active diphenhydramine-l fbnfvvsh-exvu-itb -simethicone (MAGIC MOUTHWASH-BLM) 32-248-104-40 mg/30mL suspensionIndicat ions:Trigeminal neuropathy Swish and spit [...] VACCINES (50+ years) (3 of 3 - PCV20 or PCV21) [...] Date/Time Associated Diagnosis Comments COMPREHENSIVE METABOLIC PANEL (CMP) Routine 04/20/2021 10:47 AM EDT Age-related osteoporosis with current pathological fracture, initial encounter Use of raloxifene (Evista) from Last 3 Months or Most Recently Relevant to Health Maintenance Results * (ABNORMAL) Comprehensive metabolic panel (04/20/2021 10:47 AM EDT) SODIUM 138 133 - 146 mmol/L [facility] POTASSIUM 4.8 3.3 - 5.1 mmol/L [facility] CHLORIDE 101 96 - 108 mmol/L [facility] CO2 25 21 - 35 mmol/L [facility] BUN 60(H) 6 - 19 mg/dL [facility] CREATININE 3.70(H) 0.5 - 1.5 mg/dL [facility] GLUCOSE 120(H) 70 - 99 mg/dL [facility] ALBUMIN 3.8(L) 3.9 - 4.8 g/dL [facility] TOTAL PROTEIN 7.4 6.5 - 8.0 g/dL [facility] CALCIUM 9.9 8.4 - 10.3 mg/dL [facility] ALKALINE PHOSPHATASE 80 39 - 117 U/L [facility] TOTAL BILIRUBIN 0.2 0.0 - 1.2 mg/dL [facility] AST 24 0 - 37 U/L [facility] ALT 10 0 - 40 U/L [facility] GLOBULIN 3.6 1 - 4.8 g/dL [facility] EGFR 11(L) >59 mL/min/1.7 3m2 [facility] Comment:Estimated glomerular filtration rate calculated using the CKD-EPI equation. ANION GAP 17 10 - 20 mmol/L [facility] Blood 04/20/2021 10:4 7 AM EDT 04/20/2021 10:50 AM EDT us Makenna Ayers MD LAB BLOOD BKR ORDERABLES Final Result [facility] [address] [place] [address] from Last 3 Months or Most Recently Relevant to Health Maintenance Insurance MEDICARE PART A & B MEDICARE SUPPLEMENT MEDICARE PART A & B Member Subscriber Plan / Payer (Ef fective 2011-Present) Name:Lillian Copeland Member ID:[id number] Relation to Subscriber:Self Name:Lillian Copeland Subscriber ID:[id number] Payer ID:[id number] Group ID:Not on file Type:Medicare Address: [employer] [address] [place] MEDICARE SUPPLEMENT MEDICARE PART A & B [facility] MEDICARE SUPPLEMENT MEDICARE PART A & B MEDICARE SUPPLEMENT MEDICARE SUPPLEMENT MEDICARE PART A & B MEDICARE SUPPLEMENT MEDICARE PART A & B Member Subscriber Plan / Payer (Ef fective 2011-Present) Name:Lillian Copeland Member ID:[id number] Relation to Subscriber:Self Name:MinLillian Subscriber ID:[id number] Payer ID:[id number] Group ID:Not on file Type:Medicare [facility] [address] [place] [address] [place] [address] MEDICARE SUPPLEMENT MEDICARE PART A & B Member Subscriber Plan / Payer (Ef fective 2011-Present) Name:Lillian Copeland Member ID:[id number] Relation to Subscriber:Self Name:Lillian Copeland Subscriber ID:[id number] Payer ID:[id number] Group ID:Not on file Type:Medicare Address: [employer] [address] [place] [id number] [facility] MEDICARE SUPPLEMENT MEDICARE PART A & B Member Subscriber Plan / Payer (Ef fective 2011-Present) Name:Lillian Copeland Member ID:[id number] Relation to Subscriber:Self Name:Lillian Copeland Subscriber ID:[id number] Payer ID:[id number] Group ID:Not on file Type:Medicare Address: [employer] [address] [place] [id number] [facility] MEDICARE SUPPLEMENT Advance Directives For more information, please contact: [phone] (9AM - 5PM Cynthia/[facility], Saturday-Saturday) Documents on File Type Date Recorded Patient Instructor Physical Education Expl anation Healthcare Proxy 01/05/2019 Care Teams Ribbon Sweatband Operator Relationship Specialty Start Date End Date Chen Pop MD [address] [place] [address] PCP - General Internal Medicine 05/22/24 Tess Thomas DDS engineering equipment operator 08/06/18 Bro Marino DMD [address] [place] [address] [email or web address] Surgeon engineering equipment operator 01/21/19 Additional Source Comments The information contained in this document represents components of the legal health record. It is not the complete legal health record.[facility]
--- OUTSIDE RECORDS SUMMARY | 2025-08-13 18:38 | XMS_ITS | Encounter Summary ---
Author Organization [facility] Address [address] [place] [address] Care Team Providers Care Projection Printer Name Role Phone Chen Pop Primary Care Provider [phone] Encounter Details Date Type Department Care Team (Late st Contact Info) Description 07/06/2024 [employer] Message Intial Department [address] [place] [address] Mychart, Generic Provider [address] [place] [address] Questionnaire Submission Social History Tobacco Use [...] on filedocumented in this encounter Care Teams Projection Printer Relationship Specialty Start Date End Date Chen Pop 1960 [place], [place] [id number] PCP - General Internal Medicine 05/01/24 documented as of this encounter
--- OUTSIDE RECORDS SUMMARY | 2025-08-13 18:38 | XMS_ITS | Encounter Summary ---
Author Organization [facility] Address [address] [place] [address] Care Team Providers Care Controlled Area Checker Name Role Phone Chen Pop Primary Care Provider [phone] Encounter Details Date Type Department Care Team (Late st Contact Info) Description 07/06/2024 [employer] Message Intial Department [address] [place] [address] Mychart, Generic Provider [address] [place] [address] Questionnaire Submission Social History Tobacco Use [...] on filedocumented in this encounter Care Teams Controlled Area Checker Relationship Specialty Start Date End Date Chen Pop 1960 [place], [place] [id number] PCP - General Internal Medicine 05/01/24 documented as of this encounter
--- NOTE | 2025-08-23 14:21 | HO.ANESPROP2 ---
Documented by User: Kathleen Candelario NP 08/23/25 14:25 HPI - Anesthesia Eval Consult details Narrative: 79 yr old female for colonoscopy s/p colonoscopy wtih TIVA 03/2025 Multiple myeloma: [facility] Hematology, dxd 2020, in remission 01/28 on Ninlaro and Prolia q [address] d/t myeloma - follows RTANE, stable at 03/2025 office visit (Creat 1.00 at baseline) GERD: on PPI PMFSH Active Problems Active Problems: All Active Problems Right shoulder pain (Acute) Rib injury (Acute) Hyperlipidemia (Acute) Mid back pain (Acute) Insect bites (Acute) Dysuria (Acute) CKD (chronic kidney disease) stage 3, GFR 30-59 ml/min (Acute) Weight loss (Acute) Constipation (Acute) History of arthroplasty of left knee (Acute) History of arthroplasty of right knee (Acute) Urinary incontinence (Acute) Hiatal hernia (Acute) Otitis media of both ears (Acute) Annual physical exam (Acute) Vitamin D deficiency (Acute) Neuropathy (Acute) Iron deficiency (Acute) Raynauds disease (Acute) Varicose veins of left lower extremity with inflammation (Acute) Status post total replacement of right hip (Acute) Otalgia of both ears (Acute) Pain of left thumb (Acute) Sinusitis (Acute) Osteoarthritis of left knee (Acute) Osteoarthritis of right knee (Acute) Osteoarthritis of left hip (Acute) Cough (Acute) Upper respiratory tract infection (Acute) Vaginal itching (Acute) Balance disorder (Acute) Hx of meningioma of the brain (Acute) Trigeminal neuralgia of right side of face (Acute) Lip pain (Acute) Alberto's esophagus 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 (Acute) Osteoarthritis of right hip (Acute) Otitis media of right ear (Acute) Post-nasal drip (Acute) Cataract (Acute) RLS (restless legs syndrome) (Acute) Insomnia (Acute) History of colonoscopy (Acute) Hx of breast cancer (Acute) Multiple myeloma (Acute) Past Medical History Medical History Trigeminal neuralgia Arthritis Urinary incontinence Hiatal hernia Hyperlipidemia Raynauds disease Chronic renal insufficiency Anxiety Alberto's esophagus 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 Osteoarthritis of right hip Slow to wake up after anesthesia Achalasia of esophagus Otitis media of right ear RLS (restless legs syndrome) Insomnia Hx of breast cancer Post-nasal drip Multiple myeloma Ankle fracture, left GERD (gastroesophageal reflux disease) Family History Family History Father Lung cancer Mother Diabetes Hypertension Heart attack Other Mental health disorder Family history of problems with anesthesia: No Surgical History Surgical History H/O total knee replacement History of esophagogastroduodenoscopy (EGD) History of right hip replacement (09/11/23) Hx of bilateral cataract extraction History of lumpectomy of right breast History of History of surgery on left wrist History of colonoscopy H/O left knee surgery Status post ORIF of fracture of ankle (~2020) History of Problems with Anesthesia: No Social History Social History Household Members: None Household Members Other:: , 2 sons, Housing: House Are you a primary healthcare or medical to a significant other at home: No Do you presently have visiting nurse or other home services: No Comment: pt knee gave out denies dizziness n/v prior or after fall c/o buttock pain Patient Tobacco Use Status: Former Tobacco user Tobacco use type: Cigarette Years Smoked: 2 e-Cigarette/Vaping Use: Never Used Second Hand Smoke Exposure: No Use of substances other than those prescribed or required for medical reasons: No Advance Directives: No Advance Directives Information Provided: Yes service: No Current occupational status: retired Cognitive needs: No Hearing needs: No Vision needs: Yes Meds Allergies Allergy/AdvReac Type Severity Reaction Status Date / Time mirtazapine AdvReac Intermediate Abdominal Verified 07/06/25 12:07 Pain Home Medications ?Medication ?Instructions ?Recorded ?Confirmed ?Last Taken ?Type calcium acetate PO .daily 11/30/21 07/06/25 09/10/23 History dorzolamide 22.3 mg-timolol 6.8 1 drp ophthalmic (eye) DAILY 08/13/23 08/24/25 09/10/23 History mg/mL eye drops ixazomib 3 mg capsule (Ninlaro) mg PO 09/04/23 07/06/25 Unknown History docusate sodium 100 mg capsule 100 mg PO BID 08/18/24 08/24/25 Unknown History sennosides 8.6 mg capsule (senna) 17.2 mg PO BID 08/18/24 08/24/25 Unknown History acyclovir 400 mg tablet 400 mg PO BID 02/04/25 08/24/25 Unknown History mecobalamin (vitamin B12) PO 05/11/25 07/06/25 Unknown History Exam Pertinent Lab Results Pertinent Lab Results: Laboratory Tests 01/11/25 06/18/25 14:05 09:37 WBC 4.0 L RBC 4.44 Hgb 12.8 Hct 40.4 Plt Count 256 D Sodium 143 Potassium 4.3 BUN 14 Creatinine 1.13 Assessment and Plan Final Anesthetic Review Family History of Problems with Anesthesia: No History of Problems with Anesthesia: No Documented by User: Morenita Navas MD 08/26/25 07:46 PMFSH Past Medical History Medical History Trigeminal neuralgia Arthritis Urinary incontinence Hiatal hernia Hyperlipidemia Raynauds disease Chronic renal insufficiency Anxiety Alberto's esophagus 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 Osteoarthritis of right hip Slow to wake up after anesthesia Achalasia of esophagus Otitis media of right ear RLS (restless legs syndrome) Insomnia Hx of breast cancer Post-nasal drip Multiple myeloma Ankle fracture, left GERD (gastroesophageal reflux disease) Family History Family History Father Lung cancer Mother Diabetes Hypertension Heart attack Other Mental health disorder Surgical History Surgical History H/O total knee replacement History of esophagogastroduodenoscopy (EGD) History of right hip replacement (09/11/23) Hx of bilateral cataract extraction History of lumpectomy of right breast History of History of surgery on left wrist History of colonoscopy H/O left knee surgery Status post ORIF of fracture of ankle (~2020) Social History Social History Household Members: None Household Members Other:: , 2 sons, Housing: House Are you a primary healthcare or medical to a significant other at home: No Do you presently have visiting nurse or other home services: No Comment: pt knee gave out denies dizziness n/v prior or after fall c/o buttock pain Patient Tobacco Use Status: Former Tobacco user Tobacco use type: Cigarette Years Smoked: 2 e-Cigarette/Vaping Use: Never Used Second Hand Smoke Exposure: No Use of substances other than those prescribed or required for medical reasons: No Advance Directives: No Advance Directives Information Provided: Yes service: No Current occupational status: retired Cognitive needs: No Hearing needs: No Vision needs: Yes Meds Allergies Allergy/AdvReac Type Severity Reaction Status Date / Time mirtazapine AdvReac Intermediate Abdominal Verified 07/06/25 12:07 Pain Home Medications ?Medication ?Instructions ?Recorded ?Confirmed ?Last Taken ?Type calcium acetate PO .daily 11/30/21 07/06/25 09/10/23 History dorzolamide 22.3 mg-timolol 6.8 1 drp ophthalmic (eye) DAILY 08/13/23 08/24/25 09/10/23 History mg/mL eye drops ixazomib 3 mg capsule (Ninlaro) mg PO 09/04/23 07/06/25 Unknown History docusate sodium 100 mg capsule 100 mg PO BID 08/18/24 08/24/25 Unknown History sennosides 8.6 mg capsule (senna) 17.2 mg PO BID 08/18/24 08/24/25 Unknown History acyclovir 400 mg tablet 400 mg PO BID 02/04/25 08/24/25 Unknown History mecobalamin (vitamin B12) PO 05/11/25 07/06/25 Unknown History Exam Airway Mallampati Class: II TM Dist: >3cm Neck ROM: Limited Loose/Missing/Broken Teeth: Yes and Upper Heart: rrr Assessment and Plan Assessment Anesthesia Assessment: Anesthesia Plan Discussed and Chart Reviewed Final Anesthetic Review NPO: Yes ASA Class: III Final Preanesthetic Review: No Changes in Pt Med Stat, Meds/Allgs Chart Reviewed, Consent Obtained/Reviewed and Anes Risks/Benef Reviewed Patient Risk: Intermediate Procedure Risk: Low Anesthetic Plan Anesthetic Plan: MAC: and Agree w/ Assess. and Plan Disposition: Standard PACU
[2025-08-24 13:57] VITALS: BMI 23.5
[2025-08-26 06:31] VITALS: BMI 23.0
[2025-08-26 06:47] VITALS: BP 125/66; PULSE 66; RESP 16; TEMP 36.6; O2SAT 99
[2025-08-26] MEDS: Lactated Ringers 1,000 ML 100 ML IVCONT (06:47)
--- NOTE | 2025-08-26 07:50 | MHC.SHP ---
Pre-Procedural Eval Section A - 24 Hr Update-Section A only Date of Service: 08/26/25 Section B - Complete if H&P > 30 days Chief Complaint: Abnormal PET scan Relevant Family History (Specify if Yes): No Relevant Social History: None Medical History: Significant History (Anxiety Alberto's esophagus 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 Osteoarthritis of right hip Personal history of COVID-19 Pain Slow to wake up after anesthesia Achalasia of esophagus Otitis media of right ear Cataract RLS (restless legs syndrome) Insomnia Hx of breast cancer Post-nasal drip Multiple myeloma Ankl) History of Previous Operations: Relevant previous surgery/procedure and date(s) ( H/O total knee replacement History of esophagogastroduodenoscopy (EGD) History of right hip replacement (09/11/23) Hx of bilateral cataract extraction History of lumpectomy of right breast History of History of surgery on left wrist History of colonoscopy H/O left knee surgery Status post) Allergies: Allergies Allergy/AdvReac Type Severity Reaction Status Date / Time mirtazapine AdvReac Intermediate Abdominal Verified 07/06/25 12:07 Pain Review of Systems Sugical H&P ROS: Negative: Constitution, Cardiovascular, Respiratory, Neurological, Psychiatric, Hem-Onc, Allergic/Immunologic, Gastrointestinal, Genitourinary, Musculoskeletal, Integumentary, Endocrine and Eyes/Ears/Nose/Throat Exam Surgical H&P Exam: Normal: HEENT, Normal: Heart, Normal: Lungs, Normal: Extremities, Normal: Abdomen, Normal: Skin and Normal: Neurological Plan Diagnosis/Plan: Unchanged I have reviewed the history and physical and performed a pertinent physical examination on my patient. No changes have occurred unless specified. Time Spent With Patient Time: Total time managing care of this patient today ____ minutes.
[2025-08-26 08:25] VITALS: BP 114/70; PULSE 62; RESP 12; TEMP 36.9; O2SAT 98
[2025-08-26 08:40] VITALS: BP 133/56; PULSE 62; RESP 12; TEMP 36.9; O2SAT 100
--- NOTE | 2025-08-26 08:53 | P.OPN-COLO_ITS ---
Colonoscopy Operative Note Operative Note Date of Service: 08/26/25 Narrative: Procedure: Colonoscopy Indication: Abnormal PET scan Endoscopist: Meera Gamboa MD Anesthesia Provider: Darren Aragon CRNA Anesthesia type: MAC Instrument: Olympus [id number]-H190L Consent: Indication, risks vs benefits, and alternatives were discussed with the patient who gave written informed consent to proceed. EKG, pulse, pulse oximetry and blood pressure were monitored throughout the procedure. Please see anesthesia flowsheet. Procedure: The patient was brought to the procedure room and placed in the left lateral decubitus position. An abdominal binder was affixed to the lower abdomen. IV medications were administered by the anesthesia provider in attendance. A digital rectal exam was performed which was normal. A distal attachment cap was affixed to the tip of the colonoscope which was then inserted through the anus and advanced through the colon to the cecum at 75 cm,and terminal ileum. Appendiceal orifice and ileocecal valve were identified. Mucosa was carefully examined under high definition white light as the instrument was slowly withdrawn in a retrograde panoramic fashion. Retroflexion was performed in rectum. The procedure was not difficult. There were no immediate obvious complications. The quality of the prep was BBPS: 3+3+3 = adequate Withdrawal time 17 minutes. Limitations: No limitations. Findings: Mucosa: Normal to cecum and terminal ileum. The R colon and T.I was looked at twice due to findings on PET scan. Protruding lesions: * 2 sessile polyp of size 3-4 mm in cecum. Cold snare polypectomy was performed. The polyps were completely removed and retrieved. * Medium internal hemorrhoids without stigmata of recent bleeding. Excavated lesions: * Moderate diverticulosis of sigmoid colon. Impression: 1. Normal colon and terminal ileum mucosa 2. Total of 2 polyps removed 3. Diverticulosis 4. Internal hemorrhoids Recommendations: - Follow path results. - repeat colonoscopy for polyp surveillance not recommended due to age
== END 2025-08-26 09:27 ==
PROVIDERS: PCP Internal Medicine; Visit Provider Internal Medicine
PROC: 0DJD8ZZ Inspection of Lower Intestinal Tract, Via Natural or Artificial Opening Endoscopic (ICD-10-PCS; CPT 45378; principal; 2025-08-26 07:30)
DX: R93.89 Abnormal findings on diagnostic imaging of other specified body structures (principal); E61.1 Iron deficiency; K21.9 Gastro-esophageal reflux disease without esophagitis; K64.8 Other hemorrhoids; K57.30 Diverticulosis of large intestine without perforation or abscess without bleeding; D12.0 Benign neoplasm of cecum
CPT/HCPCS: 45385; 88305; J2003; J2704

== ENCOUNTER → 2025-08-26 06:10 | Outpatient (BNV) | payer MEDICARE, OTHER, SELFPAY | PROVIDERS: PCP Internal Medicine; Visit Provider Internal Medicine | DX: R93.89 Abnormal findings on diagnostic imaging of other specified body structures (principal); K63.5 Polyp of colon; K57.30 Diverticulosis of large intestine without perforation or abscess without bleeding; K64.8 Other hemorrhoids | CPT/HCPCS: 45385 ==